=== PATIENT | female | born 1995 | race Caucasian/White ===

== ENCOUNTER 2023-05-10 14:52 | Outpatient (OUT) | payer OTHER, SELFPAY ==
[2023-05-10 17:10] LABS: HCG Quantitative 62387 mIU/mL
== END 2023-05-10 14:53 | disposition home or self-care (01) ==
PROVIDERS: PCP Family Medicine; Visit Provider Obstetrics & Gynecology
DX: O20.9 Hemorrhage in early pregnancy, unspecified (principal)
CPT/HCPCS: 36415; 84702

== ENCOUNTER 2023-05-20 09:22 | Outpatient (OUT) | payer OTHER, SELFPAY ==
--- NOTE | 2023-05-20 09:24 | US_ITS ---
The [address] [address] Patient Name: JOSSELIN DECKER MRN: [id number] date: 1995 Sex: F Assigned Patient Location: Current Patient Location: Accession/Order Number: [id number] Exam Date: 05/20/2023 09:24 Report Date: 05/21/2023 22:03 At the request of: DIONISIO CHADWICK Procedure: US OB transvaginal EXAMINATION: US OB transvaginal HISTORY: MISSED MENSES COMPARISON: No relevant comparison available. FINDINGS: GESTATIONAL SAC: Present and normal appearing. YOLK SAC: Present and normal appearing. POLE: Present and normal appearing. CARDIAC: Present. UTERUS: Normal size and appearance. OVARIES: Right: Normal. Left: Normal. CERVIX: 4.6 cm in length and closed. CUL-DE-SAC: Normal. OTHER: None. AGE BY LMP: 8 weeks 2 days MIGUE BY LMP: 12/28/2023 AGE BY US CRL: 8 weeks 2 days MIGUE BY US CRL: 12/28/2023 US/US OB transvaginal IMPRESSION: 1. Single live intrauterine . Electronically authenticated by: ORQUIDEA RING Date: 05/21/2023 22:03
== END 2023-05-20 09:23 | disposition home or self-care (01) ==
LOC: US 09:22
PROVIDERS: PCP Family Medicine; Visit Provider Obstetrics & Gynecology
DX: Z34.91 Encounter for supervision of normal pregnancy, unspecified, first trimester (principal)
CPT/HCPCS: 76817

== ENCOUNTER 2023-06-02 06:37 | Outpatient (OUT) | payer OTHER, SELFPAY ==
[2023-06-02 07:42] LABS: Basophils Percent Auto 0.5 % (0.2-2.0); Eosinophils Absolute Auto 0.2 10^3/uL (0.0-0.7); Eosinophils Percent Auto 2.7 % (0.9-7.0); Hematocrit 38.4 % (36.0-48.0); Immature Granulocytes Abs Auto 0.03 10^3/uL (0.00-0.03); Immature Granulocytes Pct Auto 0.4 % (0.0-0.5); Lymphocytes Absolute Auto 2.1 10^3/uL (1.2-3.8); Lymphocytes Percent Auto 25.5 % (20.5-60.0); Mean Corpuscular HGB Conc 33.9 g/dL (29.9-35.2); Mean Corpuscular Hemoglobin 30.6 pg (26.7-34.0); Mean Corpuscular Volume 90.4 fL (81.0-99.0); Mean Platelet Volume 10.3 fL (9.5-13.5); Monocytes Absolute Auto 0.6 10^3/uL (0.3-0.8); Monocytes Percent Auto 6.7 % (1.7-12.0); Neutrophils Absolute Auto 5.2 10^3/uL (1.4-6.5); Neutrophils Percent Auto 64.2 % (43.0-75.0); Platelet Count 242 10^3/uL (150-450); Red Blood Count 4.25 10^6/uL (4.20-5.40); Red Cell Distribution Width 13.3 % (11.0-15.0); White Blood Count 8.2 10^3/uL (4.0-11.0)
[2023-06-02 08:02] LABS: Estimated Average Glucose 94 mg/dL; Glycohemoglobin A1C 4.9 % (4.5-6.2)
[2023-06-02 08:16] LABS: Thyroid Stimulating Hormone 0.878 uIU/mL (0.358-3.740)
[2023-06-03 06:08] LABS: HBsAg Screen Negative (Negative); HCV Ab Non Reactive (Non Reactive); HIV Ab/p24 Ag Screen Non Reactive (Non Reactive); Rubella Antibodies, IgG 2.69 index (Immune >0.99)
[2023-06-03 10:09] LABS: Rapid Plasma Reagin, Quant Non Reactive titer (NonRea<1:1)
== END 2023-06-02 06:38 | disposition home or self-care (01) ==
LOC: LAB 06:37
PROVIDERS: PCP Family Medicine; Visit Provider Obstetrics & Gynecology
DX: Z34.80 Encounter for supervision of other normal pregnancy, unspecified trimester (principal); Z3A.00 Weeks of gestation of pregnancy not specified
CPT/HCPCS: 36415; 83036; 84443; 85025; 86592; 86762; 86803; 86850; 86900; 86901; 87086; 87340; 87389

== ENCOUNTER 2023-07-20 21:37 | Outpatient (REF) | payer OTHER, SELFPAY ==
[2023-07-26 11:08] LABS: Age Gdln ACOG Testing Note (.); IGP, rfx Aptima HPV ASCU Note (.)
== END 2023-07-20 21:38 | disposition home or self-care (01) ==
LOC: LAB 21:37
PROVIDERS: PCP Family Medicine; Visit Provider Obstetrics & Gynecology
DX: Z01.419 Encounter for gynecological examination (general) (routine) without abnormal findings (principal)
CPT/HCPCS: G0145

== ENCOUNTER 2023-08-10 08:56 | Outpatient (OUT) | payer OTHER, SELFPAY ==
--- NOTE | 2023-08-10 08:57 | US_ITS ---
[address] [address] Patient Name: JOSSELIN DECKER MRN: [id number] date: 1995 Sex: F Assigned Patient Location: US Current Patient Location: US Accession/Order Number: [id number] Exam Date: 08/10/2023 09:04 Report Date: 08/10/2023 21:17 At the request of: DIONISIO CHADWICK Procedure: US OB anatomy EXAMINATION: US OB anatomy, US OB transvaginal HISTORY: SECOND TRIMESTER Z34.92 COMPARISON: Ultrasound OB transvaginal 05/20/2023 TECHNIQUE: Transabdominal sonographic examination was performed for obstetrical and evaluation. FINDINGS: Number: 1 Heart Rate: 145.0 bpm H.B. /min Amniotic Fluid Volume: Subjectively normal Placental Location: ANTERIOR with lower margin 4.9 cm from os. Multiple hypoechoic areas suspected represent venous lakes. Numerous vessels with slightly hypervascular appearance between the placenta and uterine wall; nonspecific. Cervix Length: 4.4 cm; closed. Nabothian cysts noted within cervix. ANATOMY: Normal Structures -cerebellum, choroid plexus, cisterna magna, lateral cerebral ventricles, orbits, midline falx, hard palate, four-chamber heart, RVOT, LVOT, stomach, kidneys, bladder, umbilical cord insertion into abdomen, three-vessel cord, cervical spine, thoracic spine, lumbar spine, sacral spine, right upper extremity, left upper extremity, right lower extremity, left lower extremity. SUBOPTIMALLY SEEN: None ABNORMALITIES: None BIOMETRY: BPD: 4.5 cm 19 weeks 3 days HC: 17.0 cm 19 weeks 5 days AC: 14.8 cm 20 weeks 1 days FL: 3.2 cm 19 weeks 6 days EFW:323.0 grams; 43% FL/AC: 21.6 FL/BPD: 71.5 HC/AC: 1.2 GESTATIONAL AGE: Age by EDC: 20 weeks 0 days MIGUE by EDC: 12/28/2023 Age by current US: 19 weeks 6 days MIGUE by current US: 12/29/2023 US/US OB anatomy IMPRESSION: 1. Single live intrauterine with growth detailed above. 2. Multiple hypodensities within the placenta suspected to represent venous lakes, and increased vascularity between the placenta and uterus; nonspecific. Electronically authenticated by: ORQUIDEA RING Date: 08/10/2023 21:17
--- NOTE | 2023-08-10 08:58 | US_ITS ---
[address] [address] Patient Name: JOSSELIN DECKER MRN: [id number] date: 1995 Sex: F Assigned Patient Location: US Current Patient Location: US Accession/Order Number: [id number] Exam Date: 08/10/2023 09:04 Report Date: 08/10/2023 21:17 At the request of: DIONISIO CHADWICK Procedure: US OB transvaginal EXAMINATION: US OB anatomy, US OB transvaginal HISTORY: SECOND TRIMESTER Z34.92 COMPARISON: Ultrasound OB transvaginal 05/20/2023 TECHNIQUE: Transabdominal sonographic examination was performed for obstetrical and evaluation. FINDINGS: Number: 1 Heart Rate: 145.0 bpm H.B. /min Amniotic Fluid Volume: Subjectively normal Placental Location: ANTERIOR with lower margin 4.9 cm from os. Multiple hypoechoic areas suspected represent venous lakes. Numerous vessels with slightly hypervascular appearance between the placenta and uterine wall; nonspecific. Cervix Length: 4.4 cm; closed. Nabothian cysts noted within cervix. ANATOMY: Normal Structures -cerebellum, choroid plexus, cisterna magna, lateral cerebral ventricles, orbits, midline falx, hard palate, four-chamber heart, RVOT, LVOT, stomach, kidneys, bladder, umbilical cord insertion into abdomen, three-vessel cord, cervical spine, thoracic spine, lumbar spine, sacral spine, right upper extremity, left upper extremity, right lower extremity, left lower extremity. SUBOPTIMALLY SEEN: None ABNORMALITIES: None BIOMETRY: BPD: 4.5 cm 19 weeks 3 days HC: 17.0 cm 19 weeks 5 days AC: 14.8 cm 20 weeks 1 days FL: 3.2 cm 19 weeks 6 days EFW:323.0 grams; 43% FL/AC: 21.6 FL/BPD: 71.5 HC/AC: 1.2 GESTATIONAL AGE: Age by EDC: 20 weeks 0 days MIGUE by EDC: 12/28/2023 Age by current US: 19 weeks 6 days MIGUE by current US: 12/29/2023 US/US OB transvaginal IMPRESSION: 1. Single live intrauterine with growth detailed above. 2. Multiple hypodensities within the placenta suspected to represent venous lakes, and increased vascularity between the placenta and uterus; nonspecific. Electronically authenticated by: ORQUIDEA RING Date: 08/10/2023 21:17
== END 2023-08-10 08:57 | disposition home or self-care (01) ==
LOC: US 08:56
PROVIDERS: PCP Family Medicine; Visit Provider Obstetrics & Gynecology
DX: Z34.92 Encounter for supervision of normal pregnancy, unspecified, second trimester (principal); Z3A.20 20 weeks gestation of pregnancy
CPT/HCPCS: 76805; 76817

== ENCOUNTER 2023-09-10 07:52 | Outpatient (OUT) | payer OTHER, SELFPAY ==
--- NOTE | 2023-09-10 | US_ITS ---
[address] [address] Patient Name: JOSSELIN DECKER MRN: [id number] date: 1995 Sex: F Assigned Patient Location: LAB Current Patient Location: LAB Accession/Order Number: [id number] Exam Date: 09/10/2023 09:25 Report Date: 09/10/2023 10:35 At the request of: DIONISIO CHADWICK Procedure: US OB transvaginal EXAMINATION: US OB placenta, US OB transvaginal HISTORY: low lying placenta O44.40 COMPARISON: Ultrasound OB anatomy 08/10/2023 FINDINGS: PLACENTA: Anterior with lower margin 4.0 cm from internal os. Several heterogeneous hypoechoic areas suspected represent placental lakes; largest is 4.7 x 2.6 x 2.2 cm. CERVIX LENGTH: 5.0 cm, closed. HEART RATE: 134 bpm OTHER: None. US/US OB transvaginal IMPRESSION: 1. Anterior placenta without previa. 2. Multiple heterogeneous hypoechoic areas within the placenta favoring venous lakes. Electronically authenticated by: ORQUIDEA RING Date: 09/10/2023 10:35
--- NOTE | 2023-09-10 | US_ITS ---
[address] [address] Patient Name: JOSSELIN DECKER MRN: [id number] date: 1995 Sex: F Assigned Patient Location: LAB Current Patient Location: LAB Accession/Order Number: [id number] Exam Date: 09/10/2023 09:25 Report Date: 09/10/2023 10:35 At the request of: DIONISIO CHADWICK Procedure: US OB placenta EXAMINATION: US OB placenta, US OB transvaginal HISTORY: low lying placenta O44.40 COMPARISON: Ultrasound OB anatomy 08/10/2023 FINDINGS: PLACENTA: Anterior with lower margin 4.0 cm from internal os. Several heterogeneous hypoechoic areas suspected represent placental lakes; largest is 4.7 x 2.6 x 2.2 cm. CERVIX LENGTH: 5.0 cm, closed. HEART RATE: 134 bpm OTHER: None. US/US OB placenta IMPRESSION: 1. Anterior placenta without previa. 2. Multiple heterogeneous hypoechoic areas within the placenta favoring venous lakes. Electronically authenticated by: ORQUIDEA RING Date: 09/10/2023 10:35
--- OUTSIDE RECORDS SUMMARY | 2023-09-10 07:55 | XMS_ITS | CCD ---
Author Name Unknown Address [address] [facility] [address] [place] [address] Organization [facility] Care Team Providers Care Criminology Teacher Name Role Phone NETTA, DR NICHOLE Consulting Unavailable REQUEST, NONE LISTED Primary Care Unavaila ble NETTA, DR NICHOLE Attending Unavailable NETTA, DR NICHOLE Admitting Unavailable NETTA, DR NICHOLE Consulting Unavailable REQUEST, DR NONE LISTED Primary Care Unavaila ble NETTA, DR NICHOLE Attending Unavailable NETTA, DR NICHOLE Admitting Unavailable NETTA, DR NICHOLE Consulting Unavailable REQUEST, DR NONE LISTED Primary Care Unavaila ble NETTA, DR NICHOLE Attending Unavailable NETTA, DR NICHOLE Admitting Unavailable NETTA, DR NICHOLE Consulting Unavailable REQUEST, NONE LISTED Primary Care Unavaila ble NETTA, DR NICHOLE Attending Unavailable NETTA, DR NICHOLE Admitting Unavailable ZIEBER, DR ORQUIDEA [place] Consulting Unavailable WEST, DR JESSENIA Cote Consulting Unavailable REQUEST, NONE LISTED Primary Care Unavaila ble NETTA, DR NICHOLE Attending Unavailable NETTA, DR NICHOLE Admitting Unavailable NETTA, DR NICHOLE Consulting Unavailable REQUEST, DR NONE LISTED Primary Care Unavaila ble NETTA, DR NICHOLE Attending Unavailable NETTA, DR NICHOLE Admitting Unavailable ZIEBER, DR ORQUIDEA [place] Consulting Unavailable RUSLAN, DR CHRISTIANSON Attending Unavailable RUSLAN, DR CHRISTIANSON Admitting Unavailable DEBBY, DR ATWOOD Primary Care Unavailable RUSLAN, DR CHRISTIANSON Consulting Unavailable REQUEST, DR RAY LISTED Primary Care Unavaila ble NETTA, DR NICHOLE Attending Unavailable NETTA, DR NICHOLE Admitting Unavailable NETTA, DR NICHOLE Attending Unavailable NETTA, DR NICHOLE Admitting Unavailable NETTA, DR NICHOLE Consulting Unavailable REQUEST, DR NONE LISTED Primary Care Unavaila ble ZIEBER, DR ORQUIDEA [place] Consulting Unavailable NETTA, DR NICHOLE Procedure Practitioner Unavailab le AGUBOSIMBRIANNA Consulting Unavailable AGUBOSIM, BRIANNA Procedure Practitioner Unavaila ble NETTA, DR NICHOLE Consulting Unavailable NETTA, DR NICHOLE Primary Care Unavailable NETTA, DR NICHOLE Attending Unavailable NETTA, DR NICHOLE Admitting Unavailable REQUEST, DR NONE LISTED Primary Care Unavaila ble KARASIK, DR HOWARD Consulting Unavailable KARASIK, DR HOWARD Attending Unavailable KARASIK, DR HOWARD Admitting Unavailable ZIEBER, DR ORQUIDEA [place] Consulting Unavailable REQUEST, DR NONE LISTED Primary Care Unavaila ble NETTA, DR NICHOLE Consulting Unavailable NETTA, DR NICHOLE Attending Unavailable NETTA, DR NICHOLE Admitting Unavailable NETTA, DR NICHOLE Consulting Unavailable HOY, DR ATWOOD Primary Care Unavailable NETTA, DR NICHOLE Attending Unavailable NETTA, DR NICHOLE Admitting Unavailable WEST, DR JESSENIA Cote Consulting Unavailable HOY, DR ATWOOD Primary Care Unavailable NETTA, DR NICHOLE Attending Unavailable NETTA, DR NICHOLE Admitting Unavailable NETTA, DR NICHOLE Consulting Unavailable NETTA, DIONISIO Attending Unavailable NETTA, DIONISIO Attending Unavailable Problems Active Problems Problem Classification Problem Date Documented Date Episodic/Chronic Immunizations and screening for infectious disease (5 sources) Encounter for screening for human papillomavirus (HPV); Translations: [Contact with and (suspected) exposure to infections with a predominantly sexual mode of transmission] Onset: 07-04-2021 Episodic Menstrual disorders (5 sources) Irregular menstruation, unspecified; Translations: [IRREGULAR MENSTRUATION UNSPECIFIED] Onset: 07-02-2021 Chronic Other screening for suspected conditions (not mental disorders or infectious disease) (20 sources) Encounter for screening for malignant neoplasm of cervix; Translations: [Encounter for screening for Streptococcus B] Onset: 07-14-2021 Episodic Unclassified (4 sources) CONTACT W/AND (SUSP) EXPOS COVID-19; Translations: [CONTACT W/AND (SUSP) EXPOS COVID-19] Onset: 08-04-2021 Past or Other Problems Problem Classification Problem Date Documented Date Episodic/Chronic Hemorrhage during ; abruptio placenta; placenta previa (5 sources) Hemorrhage in early , unspecified; Translations: [Threatened ] Onset: 07-15-2021 Episodic Malposition; malpresentation (3 sources) Maternal care for breech presentation, not applicable or unspecified; Translations: [MATERNAL CARE BREECH PRES NA/UNS] Onset: 02-01-2022 Episodic Other complications of ; puerperium affecting management of mother (1 source) Spinal and epidural anesthesia-induced headache during the puerperium; Translations: [SP EPID ANES-IND H/A DUR PUERPERIUM] Onset: 02-11-2022 Episodic Other complications of ; puerperium affecting management of mother (4 sources) Maternal care for other (suspected) abnormality and damage, not applicable or unspecified; Translations: [MAT CARE OTH ABN DAMGE NA/UNS] Onset: 10-19-2021 Episodic Other complications of (4 sources) Abnormal ultrasonic finding on screening of mother; Translations: [ABNORM US SCREEN MOTHER] Onset: 12-21-2021 Episodic Other complications of (1 source) Other specified related conditions, unspecified trimester; Translations: [OTH SPEC PREG RELATED COND UNS TRI] Onset: 10-21-2021 Episodic Other female genital disorders (1 source) Other specified noninflammatory disorders of vagina; Translations: [OTH SPEC NONINFLAMMATORY D/O VAGINA] Onset: 10-21-2021 Episodic Other and delivery including normal (5 sources) Encounter for routine follow-up; Translations: [Single live ] Onset: 02-08-2022 Episodic Residual codes; unclassified (1 source) 38 weeks gestation of ; Translations: [38 WEEKS GESTATION OF ] Onset: 02-11-2022 Episodic Residual codes; unclassified (1 source) 9 weeks gestation of ; Translations: [9 WEEKS GESTATION OF ] Onset: 07-16-2021 Episodic Unclassified (1 source) CONTACT W/AND (SUSP) EXPOS COVID-19; Translations: [CONTACT W/AND (SUSP) EXPOS COVID-19] Onset: 07-30-2021 Results Test Name Value Interpretation Reference Range Facility PAP ACOG PANEL 2: 21 to 29on 06-02-2022 . . [facility] Comment on above: Performed By: #### G LU1HR #### [facility] [address] [place] [address] Dr. Joanna Chen Age Gdln ACOG Testing - Normal [facility] Comment on above: Performed By: #### G LU1HR #### [facility] [address] [address] [address] Joanna Chen DIAGNOSIS: Comment Normal [facility] Comment on above: Result Comment: NEGA TIVE FOR INTRAEPITHELIAL LESION OR MALIGNANCY. Performed By: #### G LU1HR #### [facility] [address] [place] [address] Dr. Joanna Chen Methodology: Comment Normal [facility] Comment on above: Result Comment: This liquid based ThinPrep(R) pap test was screened with the use of an image guided system. Performed By: #### G LU1HR #### [facility] [address] [place] [address] Dr. Joanna Chen Note: Comment Normal [facility] Comment on above: Result Comment: The Pap smear is a screening test designed to aid in the detection of premalignant and malignant conditions of the uterine cervix. It is not a diagnostic procedure and should not be used as the sole means of detecting cervical cancer. Both false-positive and false-negative reports do occur. . Performed By: #### G LU1HR #### [facility] [address] [place] [address] Dr. Joanna Chen Performed by: Comment Normal [facility] Comment on above: Result Comment: Serena Bassett, Veterinary Technologist (ASCP) Performed By: #### G LU1HR #### [facility] [address] [place] [address] Dr. Joanna Chen Reflex Criteria: Comment [facility] Comment on above: Result Comment: The HPV DNA reflex criteria were not met with this specimen result therefore, no HPV testing was performed. . Performed By: #### G LU1HR #### [facility] [address] [address] [address] Joanna Chen Specimen adequacy: Comment [facility] Comment on above: Result Comment: Sati sfactory for evaluation. Endocervical and/or squamous metaplastic cells (endocervical component) are present. Performed By: #### G LU1HR #### [facility] [address] [place] [address] Dr. Joanna Chen CBC AUTO DIFFon 02-02-2022 BASO # 0.1 103/ul Normal 0.0-0.1 [facility] Comment on above: Performed By: #### H BSANS #### [facility] [address] [place] [address] Dr. Joanna Chen Basophils/100 WBC (Bld) 0.3 % Normal 0.2-2.0 [facility] Comment on above: Performed By: #### H BSANS #### [facility] [address] [place] [address] Dr. Joanna Chen EO # 0.1 103/ul Normal 0.0-0.7 [facility] Comment on above: Performed By: #### H BSANS #### [facility] [address] [place] [address] Dr. Joanna Chen Eosinophils/100 WBC (Bld) 0.4 % Critically low 0.9-7.0 [facility] Comment on above: Performed By: #### H BSANS #### [facility] [address] [place] [address] Dr. Joanna Chen Erythrocyte distribution width (RBC) [Ratio] 13.8 % Normal 11.0-15.0 [facility] Comment on above: Performed By: #### H BSANS #### [facility] [address] [place] [address] Dr. Joanna Chen Hematocrit (Bld) [Volume fraction] 31.7 % Critically low 36.0-48.0 [facility] Comment on above: Performed By: #### H BSANS #### [facility] [address] [place] [address] Dr. Joanna Chen Hemoglobin (Bld) [Mass/Vol] 10.0 g/dL Critically low 12.0-16.[address] [facility] Comment on above: Performed By: #### H BSANS #### [facility] [address] [place] [address] Dr. Joanna Chen IG # 0.15 10e3/ul Critically high 0.00-0.03 [facility] Comment on above: Performed By: #### H BSANS #### [facility] [address] [address] [address] Joanna Chen IG % 0.9 % Critically high 0.0-0.5 [facility] Comment on above: Performed By: #### H BSANS #### [facility] [address] [address] [address] Joanna Chen LYMPH # 1.7 103/ul Normal 1.2-3.[address] [facility] Comment on above: Performed By: #### H BSANS #### [facility] [address] [place] [address] Dr. Joanna Chen Lymphocytes/100 WBC (Bld) 10.5 % Critically low 20.5-60.0 [facility] Comment on above: Performed By: #### H BSANS #### [facility] [address] [place] [address] Dr. Joanna Chen MANUAL DIFF REQ NO Normal [facility] Comment on above: Performed By: #### H BSANS #### [facility] [address] [place] [address] Dr. Joanna Chen MCH (RBC) [Entitic mass] 29.2 pg Normal 26.7-34.0 [facility] Comment on above: Performed By: #### H BSANS #### [facility] [address] [place] [address] Dr. Joanna Chen MCHC (RBC) [Mass/Vol] 31.5 g/dL Normal 29.9-35.[address] [facility] Comment on above: Performed By: #### H BSANS #### [facility] [address] [place] [address] Dr. Joanna Chen MCV (RBC) [Entitic vol] 92.4 fL Normal 81.0-99.[address] [facility] Comment on above: Performed By: #### H BSANS #### [facility] [address] [place] [address] Dr. Joanna Chen MONO # 1.2 103/ul Critically high 0.3-0.[address] [facility] Comment on above: Performed By: #### H BSANS #### [facility] [address] [address] [address] Joanna Chen Monocytes/100 WBC (Bld) 7.2 % Normal 1.7-12.[address] [facility] Comment on above: Performed By: #### H BSANS #### [facility] [address] [address] [address] Joanna Chen NEUT # 13.0 103/ul Critically high 1.4-6.5 [facility] Comment on above: Performed By: #### H BSANS #### [facility] [address] [place] [address] Dr. Joanna Chen Neutrophils/100 WBC (Bld) 80.7 % Critically high 43.0-75.[address] [facility] Comment on above: Performed By: #### H BSANS #### [facility] [address] [place] [address] Dr. Joanna Chen Platelet mean volume (Bld) [Entitic vol] 10.0 fL Normal 9.5-13.5 [facility] Comment on above: Performed By: #### H BSANS #### [facility] [address] [place] [address] Dr. Joanna Chen PLT 181 103/ul Normal 150-[address] [facility] Comment on above: Performed By: #### H BSANS #### [facility] [address] [place] [address] Dr. Joanna Chen RBC 3.43 106/ul Critically low 4.20-5.[address] [facility] Comment on above: Performed By: #### H BSANS #### [facility] [address] [place] [address] Dr. Joanna Chen WBC 16.1 103/ul Critically high 4.0-11.[address] [facility] Comment on above: Performed By: #### H BSANS #### [facility] [address] [place] [address] Dr. Joanna Chen CBC AUTO DIFFon 02-01-2022 BASO # 0.0 103/ul Normal 0.0-0.1 [facility] Comment on above: Performed By: #### G LU1HR #### [facility] [address] [place] [address] Dr. Joanna Chen Basophils/100 WBC (Bld) 0.2 % Normal 0.2-2.0 [facility] Comment on above: Performed By: #### G LU1HR #### [facility] [address] [place] [address] Dr. Joanna Chen EO # 0.0 103/ul Normal 0.0-0.[address] [facility] Comment on above: Performed By: #### G LU1HR #### [facility] [address] [place] [address] Dr. Joanna Chen Eosinophils/100 WBC (Bld) 0.2 % Critically low 0.9-7.0 [facility] Comment on above: Performed By: #### G LU1HR #### [facility] [address] [place] [address] Dr. Joanna Chen Erythrocyte distribution width (RBC) [Ratio] 13.8 % Normal 11.0-15.0 [facility] Comment on above: Performed By: #### G LU1HR #### [facility] [address] [place] [address] Dr. Joanna Chen Hematocrit (Bld) [Volume fraction] 36.2 % Normal 36.0-48.0 [facility] Comment on above: Performed By: #### G LU1HR #### [facility] [address] [place] [address] Dr. Joanna Chen Hemoglobin (Bld) [Mass/Vol] 11.8 g/dL Critically low 12.0-16.[address] [facility] Comment on above: Performed By: #### G LU1HR #### [facility] [address] [place] [address] Dr. Joanna Chen IG # 0.14 10e3/ul Critically high 0.00-0.03 [facility] Comment on above: Performed By: #### G LU1HR #### [facility] [address] [place] [address] Dr. Joanna Chen IG % 1.0 % Critically high 0.0-0.[address] [facility] Comment on above: Performed By: #### G LU1HR #### [facility] [address] [address] [address] Joanna Chen LYMPH # 2.0 103/ul Normal 1.2-3.8 [facility] Comment on above: Performed By: #### G LU1HR #### [facility] [address] [address] [address] Joanna Chen Lymphocytes/100 WBC (Bld) 14.5 % Critically low 20.5-60.0 [facility] Comment on above: Performed By: #### G LU1HR #### [facility] [address] [address] [address] Joanna Chen MANUAL DIFF REQ NO Normal [facility] Comment on above: Performed By: #### G LU1HR #### [facility] [address] [place] [address] Dr. Joanna Chen MCH (RBC) [Entitic mass] 29.2 pg Normal 26.7-34.0 [facility] Comment on above: Performed By: #### G LU1HR #### [facility] [address] [place] [address] Dr. Joanna Chen MCHC (RBC) [Mass/Vol] 32.6 g/dL Normal 29.9-35.2 [facility] Comment on above: Performed By: #### G LU1HR #### [facility] [address] [address] [address] Joanna Chen MCV (RBC) [Entitic vol] 89.6 fL Normal 81.0-99.0 [facility] Comment on above: Performed By: #### G LU1HR #### [facility] [address] [address] [address] Joanna Chen MONO # 1.0 103/ul Critically high 0.3-0.8 [facility] Comment on above: Performed By: #### G LU1HR #### [facility] [address] [address] [address] Joanna Chen Monocytes/100 WBC (Bld) 7.2 % Normal 1.7-12.[address] [facility] Comment on above: Performed By: #### G LU1HR #### [facility] [address] [address] [address] Joanna Chen NEUT # 10.6 103/ul Critically high 1.4-6.5 [facility] Comment on above: Performed By: #### G LU1HR #### [facility] [address] [place] [address] Dr. Joanna Chen Neutrophils/100 WBC (Bld) 76.9 % Critically high 43.0-75.0 [facility] Comment on above: Performed By: #### G LU1HR #### [facility] [address] [place] [address] Dr. Joanna Chen Platelet mean volume (Bld) [Entitic vol] 9.7 fL Normal 9.5-13.5 [facility] Comment on above: Performed By: #### G LU1HR #### [facility] [address] [place] [address] Dr. Joanna Chen PLT 203 103/ul Normal 150-450 [facility] Comment on above: Performed By: #### G LU1HR #### [facility] [address] [place] [address] Dr. Joanna Chen RBC 4.04 106/ul Critically low 4.20-5.40 [facility] Comment on above: Performed By: #### G LU1HR #### [facility] [address] [place] [address] Dr. Joanna Chen WBC 13.8 103/ul Critically high 4.0-11.0 [facility] Comment on above: Performed By: #### G LU1HR #### [facility] [address] [place] [address] Dr. Joanna Chen Covid-19 PCR ([facility])on 01-14 SARS-CoV-2 (COVID-19) RNA MANINDER+probe Ql (Unsp spec) Not detected Normal NOT DETECTED [facility] Comment on above: Result Comment: When diagnostic testing is negative, the possibility of a false negative should be considered in the context of a patient's recent exposures and the presence of clinical signs and symptoms consistent with SARS-CoV-2. This test is not yet approved or cleared by the [place] FDA. When there are no FDA-approved or cleared tests available, and other criteria are met, FDA can make tests available under an emergency access mechanism called an Emergency Use Authorization (EUA). The EUA for this test is supported by the Natural Resources Extension Educator of Health and Human Service's declaration that circumstances exist to justify the emergency use of in vitro diagnostics for the detection and/or diagnosis of the virus that causes COVID-19. This EUA will remain in effect for the duration of the COVID-19 declaration justifying emergency of IVDs, unless it is terminated or revoked by the FDA (after which the test may no longer be used). Performed By: #### G LU1HR #### [facility] [address] [place] [address] Dr. Joanna Chen DRUG SCREEN RAPID (URINE)on 02-01-2022 AMP Negative Normal NEGATIVE [facility] Comment on above: Performed By: #### H BSANS #### [facility] [address] [place] [address] Dr. Joanna Chen BAR Negative Normal NEGATIVE [facility] Comment on above: Performed By: #### H BSANS #### [facility] [address] [place] [address] Dr. Joanna Chen BUP Negative Normal NEGATIVE [facility] Comment on above: Performed By: #### H BSANS #### [facility] [address] [place] [address] Dr. Joanna Chen BZO Negative Normal NEGATIVE [facility] Comment on above: Performed By: #### H BSANS #### [facility] [address] [place] [address] Dr. Joanna Chen HALLE Negative Normal NEGATIVE [facility] Comment on above: Performed By: #### H BSANS #### [facility] [address] [place] [address] Dr. Joanna Chen CUT-OFFS SEE BELOW Normal [facility] Comment on above: Result Comment: AMP (Amphetamine): 500ng/mL, BAR (Barbituates): 200 ng/mL, BZO (Benzodiazepines): 150 ng/mL, BUP (Buprenorphine): 10 ng/mL, HALLE (Cocaine): 150 ng/mL, mAMP (Methamphetamine): 500 ng/mL, MTD (Methadone): 200 ng/mL, OPI (Opiates): 100 ng/mL, OXY (Oxycodone): 100 ng/mL, PCP (Phencyclidine): 25 ng/mL, PPX (Propoxyphene): 300 ng/mL, THC (Cannabinoids): 50 ng/mL, TCA (Trycyclic Antidepressants): 300 ng/mL Performed By: #### H BSANS #### [facility] [address] [place] [address] Dr. Joanna Chen DRUG CUT HEADER DRUG CLASS TEST SYST EM CUT-OFF CONCENTRATIONS ARE FOLLOWS: Normal [facility] Comment on above: Performed By: #### H BSANS #### [facility] [address] [place] [address] Dr. Joanna Chen mAMP Negative Normal NEGATIVE [facility] Comment on above: Performed By: #### H BSANS #### [facility] [address] [place] [address] Dr. Joanna Chen MTD Negative Normal NEGATIVE [facility] Comment on above: Performed By: #### H BSANS #### [facility] [address] [place] [address] Dr. Joanna Chen OPI Negative Normal NEGATIVE [facility] Comment on above: Performed By: #### H BSANS #### [facility] [address] [place] [address] Dr. Joanna Chen OXY Negative Normal NEGATIVE [facility] Comment on above: Performed By: #### H BSANS #### [facility] [address] [place] [address] Dr. Joanna Chen PCP Negative Normal NEGATIVE [facility] Comment on above: Performed By: #### H BSANS #### [facility] [address] [place] [address] Dr. Joanna Chen PPX Negative Normal NEGATIVE [facility] Comment on above: Performed By: #### H BSANS #### [facility] [address] [place] [address] Dr. Joanna Chen TCA Negative Normal NEGATIVE [facility] Comment on above: Performed By: #### H BSANS #### [facility] [address] [place] [address] Dr. Joanna Chen THC Negative Normal NEGATIVE [facility] Comment on above: Performed By: #### H BSANS #### [facility] [address] [place] [address] Dr. Joanna Chen TYPE AND SCREENon 02-01-2022 TYPE AND SCREEN Negative Normal [facility] Comment on above: Performed By: #### C MP, PREGQNT #### [facility] [address] [address] [address] Joanna Chen UA (CLEAN/CATCH) PROJECT DIRECTOR/MICRO I F IND.on 02-01-2022 Bilirubin Ql (U) Negative Normal NEGATIVE [facility] Comment on above: Performed By: #### U ACSIND, UMICRO #### [facility] [address] [place] [address] Dr. Joanna Chen Clarity (U) CLEAR Normal CLEAR [facility] Comment on above: Performed By: #### U ACSIND, UMICRO #### [facility] [address] [address] [address] Joanna Chen Color (U) LT. YELLOW Normal YELLOW [facility] Comment on above: Performed By: #### U ACSIND, UMICRO #### [facility] [address] [place] [address] Dr. Joanna Chen Glucose Ql (U) Negative Normal NEGATIVE [facility] Comment on above: Performed By: #### U ACSIND, UMICRO #### [facility] [address] [address] [address] Joanna Chen Hemoglobin Ql (U) Negative Normal NEGATIVE [facility] Comment on above: Performed By: #### U ACSIND, UMICRO #### [facility] [address] [place] [address] Dr. Joanna Chen Ketones Ql (U) Negative Normal NEGATIVE [facility] Comment on above: Performed By: #### U ACSIND, UMICRO #### [facility] [address] [place] [address] Dr. Joanna Chen LEUKOCYTES TRACE Abnormal NEGATIVE [facility] Comment on above: Performed By: #### U ACSMARK MOREAUICRO #### [facility] [address] [place] [address] Dr. Joanna Chen Nitrite Ql (U) Negative Normal NEGATIVE [facility] Comment on above: Performed By: #### U ACSMARK MOREAUICRO #### [facility] [address] [place] [address] Dr. Joanna Chen pH (U) 7.0 [pH] Normal 5-[address] [facility] Comment on above: Performed By: #### U RAMYA PORTILLORO #### [facility] [address] [place] [address] Dr. Joanna Chen SPEC GRAVITY 1.010 Normal 1.005-<=1.02 5 [facility] Comment on above: Performed By: #### U RAMYA PORTILLORO #### [facility] [address] [place] [address] Dr. Joanna Chen UA PROTEIN Negative Normal NEGATIVE/ TRACE [facility] Comment on above: Performed By: #### U RAMYA PORTILLORO #### [facility] [address] [place] [address] Dr. Joanna Chen UR MICRO IND INDICATED Normal [facility] Comment on above: Performed By: #### U RAMYA PORTILLORO #### [facility] [address] [place] [address] Dr. Joanna Chen Urobilinogen Qn (U) 0.2 {Frank'U}/dL Normal 0.2 - 1.[address] [facility] Comment on above: Performed By: #### U MARK PORTILLOICRO #### [facility] [address] [place] [address] Dr. Joanna Chen URINE MICROSCOPIC ONLYon BACTERIA NONE SEEN Normal NONE SEEN [facility] Comment on above: Performed By: #### U RAMYA PORTILLORO #### [facility] [address] [place] [address] Dr. Joanna Chen Bacteria identified Cx Nom (U) NOT INDICATED Normal [facility] Comment on above: Performed By: #### U ACSIND, UMICRO #### [facility] [address] [place] [address] Dr. Joanna Chen CAST NONE SEEN Normal NONE SEEN [facility] Comment on above: Performed By: #### U ACSIND, UMICRO #### [facility] [address] [place] [address] Dr. Joanna Chen Crystals LM Nom (Urine sed) NONE SEEN Normal NONE SEEN [facility] Comment on above: Performed By: #### U ACSIND, UMICRO #### [facility] [address] [place] [address] Dr. Joanna Chen Epithelial cells LM Ql (Urine sed) FEW Abnormal NONE SEEN /RARE [facility] Comment on above: Performed By: #### U ACSIND, UMICRO #### [facility] [address] [place] [address] Dr. Joanna Chen MUCOUS NONE SEEN Normal NONE SEEN [facility] Comment on above: Performed By: #### U ACSIND, UMICRO #### [facility] [address] [place] [address] Dr. Joanna Chen RBC NONE SEEN Abnormal 0-[address] [facility] Comment on above: Performed By: #### U ACSIND, UMICRO #### [facility] [address] [place] [address] Dr. Joanna Chen WBC 0-2 Abnormal NONE SEEN [facility] Comment on above: Performed By: #### U ACSIND, UMICRO #### [facility] [address] [place] [address] Dr. Joanna Chen US PREG BIOPHY W NON STRESSo n 02-01-2022 US PREG BIOPHY W NON STRESS EXAMINATION: US PREG BIOPHY W NON STRESS HISTORY: Fetus or affected by malpresentation before labor COMPARISON: Ultrasound 12/21/2021 TECHNIQUE: Ultrasound biophysical profile was performed. FINDINGS: BREATHING MOVEMENTS: 0.0 GROSS BODY MOVEMENTS: 2.0 TONE: 2.0 QUALITATIVE AMNIOTIC FLUID VOLUME: 2.0 PRESENTATION: BREECH HEART RATE: 132.4 bpm bpm. AMNIOTIC FLUID VOLUME: 13.0 cm GESTATIONAL AGE: 38 weeks 0 days CONCLUSION: Total biophysical profile score 6.0. Electronically authenticated by: ORQUIDEA RING Date: 2022-02-01 12:34 [address] [facility] GROUP B STREP CULTUREon S. agalactiae Ag Ql (Unsp spec) Culture Observations: NEGATIVE FOR GROUP B STREPTOCOCCUS. Normal [facility] Comment on above: Performed By: #### C MP, PREGQNT #### [facility] [address] [place] [address] Dr. Joanna Chen US PREG REEVAL ABNon 022 US PREG REEVAL ABN EXAMINATION: US PREG REEVAL ABN HISTORY: ultrasound scan abnormal ; follow-up echogenic focus in heart COMPARISON: Ultrasound incomplete anatomy 10/19/2021, ultrasound anatomy 10/01/2021 FINDINGS: Anatomy: Bilateral choroid plexus cysts within the lateral ventricles of the brain, 5 mm and 6 mm in diameter. Persistent echogenic focus noted within left lateral cardiac ventricle. Gestational age: 32 weeks, 0 days MIGUE: 02/15/2022 IMPRESSION: 1. Single live intrauterine . 2. Persistent echogenic focus within the left cardiac ventricle. 3. Small bilateral choroid plexus cysts. Electronically authenticated by: ORQUIDEA RING Date: 2021-12-21 16:[address] [facility] GLUCOSE - 1HRon 10-30-2021 Glucose [Mass/Vol] 82 mg/dL Normal 74-[address] [facility] Comment on above: Performed By: #### G LU1HR #### [facility] [address] [place] [address] Dr. Joanna Chen HEMOGRAM AND PLATELon 2021 Hematocrit (Bld) [Volume fraction] 35.0 % Critically low 36.0-48.[address] [facility] Comment on above: Performed By: #### H BSANS #### [facility] [address] [place] [address] Dr. Joanna Chen Hemoglobin (Bld) [Mass/Vol] 11.4 g/dL Critically low 12.0-16.0 [facility] Comment on above: Performed By: #### H BSANS #### [facility] [address] [place] [address] Dr. Joanna Chen MCH (RBC) [Entitic mass] 30.2 pg Normal 26.7-34.0 [facility] Comment on above: Performed By: #### H BSANS #### [facility] [address] [place] [address] Dr. Joanna Chen MCHC (RBC) [Mass/Vol] 32.6 g/dL Normal 29.9-35.[address] [facility] Comment on above: Performed By: #### H BSANS #### [facility] [address] [place] [address] Dr. Joanna Chen MCV (RBC) [Entitic vol] 92.6 fL Normal 81.0-99.0 [facility] Comment on above: Performed By: #### H BSANS #### [facility] [address] [place] [address] Dr. Joanna Chen PLT 267 103/ul Normal 150-450 [facility] Comment on above: Performed By: #### H BSANS #### [facility] [address] [place] [address] Dr. Joanna Chen RBC 3.78 106/ul Critically low 4.20-5.40 [facility] Comment on above: Performed By: #### H BSANS #### [facility] [address] [place] [address] Dr. Joanna Chen WBC 12.0 103/ul Critically high 4.0-11.0 [facility] Comment on above: Performed By: #### H BSANS #### [facility] [address] [place] [address] Dr. Joanna Chen CHLAMYDIA/GONOCOCCUS MANINDER (SW AB/URINE/PAPon 10-21-2021 Chlamydia trachomatis, MANINDER Negative Normal Negative [facility] Comment on above: Performed By: #### G LU1HR #### [facility] [address] [place] [address] Dr. Joanna Chen Neisseria gonorrhoeae, MANINDER Negative Normal Negative [facility] Comment on above: Performed By: #### G LU1HR #### [facility] [address] [address] [address] Joanna Chen VAGINITIS/VAGINOSIS DNA PROB Cheng 10-20-2021 Earnestine species Negative Normal Negative [facility] Comment on above: Performed By: #### H BSANS #### [facility] [address] [address] [address] Joanna Chen Gardnerella vaginalis Positive Abnormal Negative [facility] Comment on above: Performed By: #### H BSANS #### [facility] [address] [address] [address] Joanna Chen Trichomonas vaginalis Negative Normal Negative [facility] Comment on above: Performed By: #### H BSANS #### [facility] [address] [address] [address] Joanna Chen US PREG INCOMPLETE ANATOMYon 10-19-2021 US PREG INCOMPLETE ANATOMY EXAMINATION: US PREG INCOMPLETE ANATOMY HISTORY: screening COMPARISON: 10/01/2021 FINDINGS: presentation: Cephalic Heart rate: 141 bpm Normal anatomy: Right ventricular outflow track, left ventricular outflow tract Other: Single cardiac focus again noted IMPRESSION: Stable single cardiac focus, nonspecific Electronically authenticated by: JESSENIA LOPEZ Date: 2021-10-19 18:33 Normal [address] [facility] US PREG ANATOMY SINGLEon US PREG ANATOMY SINGLE EXAMINATION: US PREG ANATOMY SINGLE HISTORY: anatomy study COMPARISON: No relevant comparison available. TECHNIQUE: Transabdominal sonographic examination was performed for obstetrical and evaluation. FINDINGS: Number: 1 Heart Rate: 154 H.B. /min Amniotic Fluid Volume: Subjectively normal Placental Location: Posterior with lower margin 3.4 cm from os. Several small venous lakes within the placenta. Cervix Length: 4.0 cm in length, closed. ANATOMY: Normal Structures -cerebellum, choroid plexus, cisterna magna, lateral cerebral ventricles, orbits, midline falx, hard palate, four-chamber heart, stomach, kidneys, bladder, umbilical cord insertion into abdomen, three-vessel cord, cervical spine, thoracic spine, lumbar spine, sacral spine, right upper extremity, left upper extremity, right lower extremity, left lower extremity. SUBOPTIMALLY SEEN: Cardiac outflow tracts ABNORMALITIES: Echogenic focus within left cardiac ventricle. BIOMETRY: BPD: 4.7 cm 20 weeks 1 days HC: 17.5 cm 20 weeks 0 days AC: 14.6 cm 19 weeks 6 days FL: 3.0 cm 19 weeks 2 days EFW:307 g (44% by ultrasound, 13% by expected); FL/AC: 0.448640 FL/BPD: 0.198617 HC/AC: 1.460999 GESTATIONAL AGE: Age by EDC: 20 weeks, 3 days MIGUE by EDC: 02/15/2022 Age by current US: 19 weeks, 5 days MIGUE by current US: 02/20/2022 IMPRESSION: 1. Single live intrauterine with growth detailed above. 2. Echogenic focus within the left cardiac ventricle; nonspecific but can be associated with the trisomy syndromes. No additional appreciable anatomic abnormality. 3. Suboptimal visualization of the cardiac outflow tracts. Follow-up recommended. Electronically authenticated by: ORQUIDEA RING Date: 2021-10-01 17:[address] [facility] Covid-19 PCR (CVDTBH)on 07-15 SARS-CoV-2 (COVID-19) RNA MANINDER+probe Ql (Unsp spec) Not detected Normal NOT DETECTED [facility] Comment on above: Result Comment: This test is not yet approved or cleared by the [place] FDA. When there are no FDA-approved or cleared tests available, and other criteria are met, FDA can make tests available under an emergency access mechanism called an Emergency Use Authorization (EUA). The EUA for this test is supported by the [place] of Health and Human Service's (HHS's) declaration that circumstances exist to justify the emergency use of in vitro diagnostics for the detection and/or diagnosis of the virus that causes COVID-19. This EUA will remain in effect (meaning this test can be used) for the duration of the COVID-19 declaration justifying emergency of IVDs, unless it is terminated or revoked by FDA (after which the test may no longer be used). When diagnostic testing is negative, the possibility of a false negative should be considered in the context of a patient's recent exposures and the presence of clinical signs and symptoms consistent with SARS-CoV-2. Performed By: #### G 1 #### [facility] [address] [place] [address] Dr. Yilan Chen ALFRED BOX TEST PT SEND OUTo n 07-27-2021 SENT TO REF LAB 07/27/[address]21 Normal [address] [facility] Comment on above: Performed By: #### N BOX #### [facility] [address] [place] [address] Dr. Joanna Chen CBC AUTO DIFFon 07-15-2021 BASO # 0.0 103/ul Normal 0.0-0.[address] [facility] Comment on above: Performed By: #### G LU1HR #### [facility] [address] [place] [address] Dr. Joanna Chen Basophils/100 WBC (Bld) 0.5 % Normal 0.2-2.0 [facility] Comment on above: Performed By: #### G LU1HR #### [facility] [address] [place] [address] Dr. Joanna Chen EO # 0.0 103/ul Normal 0.0-0.7 [facility] Comment on above: Performed By: #### G LU1HR #### [facility] [address] [place] [address] Dr. Joanna Chen Eosinophils/100 WBC (Bld) 0.5 % Critically low 0.9-7.0 [facility] Comment on above: Performed By: #### G LU1HR #### [facility] [address] [place] [address] Dr. Joanna Chen Erythrocyte distribution width (RBC) [Ratio] 13.3 % Normal 11.0-15.0 [facility] Comment on above: Performed By: #### G LU1HR #### [facility] [address] [place] [address] Dr. Joanna Chen Hematocrit (Bld) [Volume fraction] 39.1 % Normal 36.0-48.[address] [facility] Comment on above: Performed By: #### G LU1HR #### [facility] [address] [place] [address] Dr. Joanna Chen Hemoglobin (Bld) [Mass/Vol] 13.0 g/dL Normal 12.0-16.[address] [facility] Comment on above: Performed By: #### G LU1HR #### [facility] [address] [place] [address] Dr. Joanna Chen IG # 0.04 10e3/ul Critically high 0.00-0.03 [facility] Comment on above: Performed By: #### G LU1HR #### [facility] [address] [place] [address] Dr. Joanna Chen IG % 0.5 % Normal 0.0-0.5 [facility] Comment on above: Performed By: #### G LU1HR #### [facility] [address] [place] [address] Dr. Joanna Chen LYMPH # 1.8 103/ul Normal 1.2-3.8 [facility] Comment on above: Performed By: #### G LU1HR #### [facility] [address] [place] [address] Dr. Joanna Chen Lymphocytes/100 WBC (Bld) 20.9 % Normal 20.5-60.0 [facility] Comment on above: Performed By: #### G LU1HR #### [facility] [address] [place] [address] Dr. Joanna Chen MANUAL DIFF REQ NO Normal [facility] Comment on above: Performed By: #### G LU1HR #### [facility] [address] [place] [address] Dr. Joanna Chen MCH (RBC) [Entitic mass] 29.5 pg Normal 26.7-34.0 [facility] Comment on above: Performed By: #### G LU1HR #### [facility] [address] [place] [address] Dr. Joanna Chen MCHC (RBC) [Mass/Vol] 33.2 g/dL Normal 29.9-35.2 [facility] Comment on above: Performed By: #### G LU1HR #### [facility] [address] [place] [address] Dr. Joanna Chen MCV (RBC) [Entitic vol] 88.7 fL Normal 81.0-99.0 [facility] Comment on above: Performed By: #### G LU1HR #### [facility] [address] [address] [address] Joanna Chen MONO # 0.6 103/ul Normal 0.3-0.8 [facility] Comment on above: Performed By: #### G LU1HR #### [facility] [address] [place] [address] Dr. Joanna Chen Monocytes/100 WBC (Bld) 7.2 % Normal 1.7-12.0 [facility] Comment on above: Performed By: #### G LU1HR #### [facility] [address] [place] [address] Dr. Joanna Chen NEUT # 6.1 103/ul Normal 1.4-6.5 [facility] Comment on above: Performed By: #### G LU1HR #### [facility] [address] [place] [address] Dr. Joanna Chen Neutrophils/100 WBC (Bld) 70.4 % Normal 43.0-75.0 [facility] Comment on above: Performed By: #### G LU1HR #### [facility] [address] [place] [address] Dr. Joanna Chen Platelet mean volume (Bld) [Entitic vol] 9.3 fL Critically low 9.5-13.5 [facility] Comment on above: Performed By: #### G LU1HR #### [facility] [address] [place] [address] Dr. Joanna Chen PLT 241 103/ul Normal 150-[address] [facility] Comment on above: Performed By: #### G LU1HR #### [facility] [address] [place] [address] Dr. Joanna Chen RBC 4.41 106/ul Normal 4.20-5.[address] [facility] Comment on above: Performed By: #### G LU1HR #### [facility] [address] [place] [address] Dr. Joanna Chen WBC 8.7 103/ul Normal 4.0-11.[address] [facility] Comment on above: Performed By: #### G LU1HR #### [facility] [address] [place] [address] Dr. Joanna Chen PREG QUANT HCGon 07-15-2021 HCG QUANT 45821 mIU/mL Normal [facility] Comment on above: Performed By: #### C MP, PREGQNT #### [facility] [address] [place] [address] Dr. Joanna Chen HCG RANGE SEE BELOW Normal [facility] Comment on above: Result Comment: 5-50 0-1 WEEK 40-300 1-2 WEEKS 100-1,000 2-3 WEEKS 500-6,000 3-4 WEEKS 5,000-200,000 1-2 MONTHS 10,000-100,000 2-3 MONTHS 3,000-50,000 2ND TRIMESTER 1,000-50,000 3RD TRIMESTER Performed By: #### C MP, PREGQNT #### [facility] [address] [place] [address] Dr. Joanna Chen PROF 14(COMP METB)on 021 Albumin [Mass/Vol] 3.6 g/dL Normal 3.5-5.0 [facility] Comment on above: Performed By: #### C DARRYN, PREGQNT #### [facility] [address] [place] [address] Dr. Joanna Chen Albumin/Globulin [Mass ratio] 1.0 {ratio} Normal [facility] Comment on above: Performed By: #### C MP, PREGQNT #### [facility] [address] [place] [address] Dr. Joanna Chen ALP [Catalytic activity/Vol] 43 U/L Normal 38-[address] [facility] Comment on above: Performed By: #### C MP, PREGQNT #### [facility] [address] [place] [address] Dr. Joanna Chen ALT [Catalytic activity/Vol] 21 U/L Normal 9-52 [facility] Comment on above: Performed By: #### C MP, PREGQNT #### [facility] [address] [place] [address] Dr. Joanna Chen Anion gap [Moles/Vol] 11.5 mmol/L Normal [facility] Comment on above: Performed By: #### C MP, PREGQNT #### [facility] [address] [place] [address] Dr. Joanna Chen AST [Catalytic activity/Vol] 18 U/L Normal 14-36 [facility] Comment on above: Performed By: #### C MP, PREGQNT #### [facility] [address] [place] [address] Dr. Joanna Chen Bilirubin [Mass/Vol] 0.4 mg/dL Normal 0.2-1.[address] [facility] Comment on above: Performed By: #### C MP, PREGQNT #### [facility] [address] [place] [address] Dr. Joanna Chen Calcium [Mass/Vol] 9.3 mg/dL Normal 8.4-10.2 [facility] Comment on above: Performed By: #### C MP, PREGQNT #### [facility] [address] [place] [address] Dr. Joanna Chen Chloride [Moles/Vol] 102 mmol/L Normal 98-[address] [facility] Comment on above: Performed By: #### C MP, PREGQNT #### [facility] [address] [place] [address] Dr. Joanna Chen CO2 [Moles/Vol] 25.5 mmol/L Normal 22.0-30.0 [facility] Comment on above: Performed By: #### C MP, PREGQNT #### [facility] [address] [place] [address] Dr. Joanna Chen Creatinine [Mass/Vol] 0.54 mg/dL Normal 0.52-1.[address] [facility] Comment on above: Performed By: #### C MP, PREGQNT #### [facility] [address] [place] [address] Dr. Joanna Chen EGFR-AF NAURUAN >60 Normal >=[address] [facility] Comment on above: Performed By: #### C MP, PREGQNT #### [facility] [address] [place] [address] Dr. Joanna Chen EGFR-NON AF NAURUAN >60 Normal >=60 [facility] Comment on above: Performed By: #### C MP, PREGQNT #### [facility] [address] [place] [address] Dr. Joanna Chen Globulin (S) [Mass/Vol] 3.7 g/dL Normal [facility] Comment on above: Performed By: #### C MP, PREGQNT #### [facility] [address] [place] [address] Dr. Joanna Chen Glucose [Mass/Vol] 90 mg/dL Normal 74-106 [facility] Comment on above: Performed By: #### C MP, PREGQNT #### [facility] [address] [place] [address] Dr. Joanna Chen Potassium [Moles/Vol] 4.0 mmol/L Normal 3.4-5.0 [facility] Comment on above: Performed By: #### C MP, PREGQNT #### [facility] [address] [place] [address] Dr. Joanna Chen Protein [Mass/Vol] 7.3 g/dL Normal 6.1-8.2 [facility] Comment on above: Performed By: #### C MP, PREGQNT #### [facility] [address] [place] [address] Dr. Joanna Chen Sodium [Moles/Vol] 135 mmol/L Critically low 137-145 [facility] Comment on above: Performed By: #### C MP, PREGQNT #### [facility] [address] [place] [address] Dr. Joanna Chen Urea nitrogen [Mass/Vol] 8.0 mg/dL Normal 7.0-17.0 [facility] Comment on above: Performed By: #### C MP, PREGQNT #### [facility] [address] [place] [address] Dr. Joanna Chen Urea nitrogen/Creatinin e [Mass ratio] 14.8 mg/mg Normal [facility] Comment on above: Performed By: #### C MP, PREGQNT #### [facility] [address] [place] [address] Dr. Joanna Chen US PREG TVon 07-15-2021 US PREG TV EXAMINATION: US PREG TV HISTORY: Abnormal vaginal bleeding COMPARISON: Ultrasound transvaginal 07/02/2021 FINDINGS: GESTATIONAL SAC: Present and normal appearing. POLE: Present and normal appearing. YOLK SAC: Present. CARDIAC: Present. UTERUS: Small subchorionic hematoma; smaller than previously seen. OVARIES: Right: Normal. Left: Corpus lutein cyst CERVIX: 3.7 cm in length and closed. CUL-DE-SAC: Normal. OTHER: None. AGE BY LMP: 9 weeks, 2 days MIGUE BY LMP: 02/15/2022 AGE BY US CRL: 8 weeks, 6 days MIGUE BY US CRL: 02/18/2022 IMPRESSION: 1. Single live intrauterine . 2. Interval decrease in size of the small subchorionic hematoma. Electronically authenticated by: ORQUIDEA RING Date: 2021-07-15 10:[address] [facility] RPR QUANTon 07-06-2021 Rapid Plasma Reagin, Quant Non-Reactive Normal NonRea<1:[address] [facility] Comment on above: Performed By: #### G LU1HR #### [facility] [address] [place] [address] Dr. Joanna Chen RUBELLA AB IGGon 07-06-2021 Rubella Antibodies, IgG 2.68 index Normal Immune >0.[address] [facility] Comment on above: Result Comment: Non- immune <0.90 Equivocal 0.90 - 0.99 Immune >0.99 Performed By: #### C MP, PREGQNT #### [facility] [address] [place] [address] Dr. Joanna Chen HEP B SURFACE ANTIGEN SCREEN on 07-05-2021 HBsAg Screen Negative Normal Negative [facility] Comment on above: Performed By: #### H BSANS #### [facility] [address] [place] [address] Dr. Joanna Chen HEPATITIS C VIRUS AB W/ REFL EX QUANTon 07-05-2021 HCV AB <0.1 Normal 0.0-0.9 [facility] Comment on above: Performed By: #### H BSANS #### [facility] [address] [place] [address] Dr. Joanna Chen Interpretation: Comment Normal [facility] Comment on above: Result Comment: Nega tive Not infected with HCV, unless recent infection is suspected or other evidence exists to indicate HCV infection. Performed By: #### H BSANS #### [facility] [address] [place] [address] Dr. Joanna Chen HIV 1 AND 2 WITH REFLEXon HIV Screen 4th Generation wRfx Non-Reactive Normal Non Reactive [facility] Comment on above: Performed By: #### H IV12 #### [facility] [address] [place] [address] Dr. Joanna Chen CBC AUTO DIFFon 07-04-2021 BASO # 0.1 103/ul Normal 0.0-0.1 [facility] Comment on above: Performed By: #### G LU1HR #### [facility] [address] [place] [address] Dr. Joanna Chen Basophils/100 WBC (Bld) 0.5 % Normal 0.2-2.0 [facility] Comment on above: Performed By: #### G LU1HR #### [facility] [address] [place] [address] Dr. Joanna Chen EO # 0.1 103/ul Normal 0.0-0.7 [facility] Comment on above: Performed By: #### G LU1HR #### [facility] [address] [place] [address] Dr. Joanna Chen Eosinophils/100 WBC (Bld) 0.5 % Critically low 0.9-7.0 [facility] Comment on above: Performed By: #### G LU1HR #### [facility] [address] [place] [address] Dr. Joanna Chen Erythrocyte distribution width (RBC) [Ratio] 13.0 % Normal 11.0-15.0 [facility] Comment on above: Performed By: #### G LU1HR #### [facility] [address] [place] [address] Dr. Joanna Chen Hematocrit (Bld) [Volume fraction] 39.3 % Normal 36.0-48.0 [facility] Comment on above: Performed By: #### G LU1HR #### [facility] [address] [place] [address] Dr. Joanna Chen Hemoglobin (Bld) [Mass/Vol] 12.8 g/dL Normal 12.0-16.0 [facility] Comment on above: Performed By: #### G LU1HR #### [facility] [address] [place] [address] Dr. Joanna Chen IG # 0.04 10e3/ul Critically high 0.00-0.03 [facility] Comment on above: Performed By: #### G LU1HR #### [facility] [address] [place] [address] Dr. Joanna Chen IG % 0.4 % Normal 0.0-0.5 [facility] Comment on above: Performed By: #### G LU1HR #### [facility] [address] [place] [address] Dr. Joanna Chen LYMPH # 2.6 103/ul Normal 1.2-3.8 [facility] Comment on above: Performed By: #### G LU1HR #### [facility] [address] [place] [address] Dr. Joanna Chen Lymphocytes/100 WBC (Bld) 28.1 % Normal 20.5-60.0 [facility] Comment on above: Performed By: #### G LU1HR #### [facility] [address] [place] [address] Dr. Joanna Chen MANUAL DIFF REQ NO Normal [facility] Comment on above: Performed By: #### G LU1HR #### [facility] [address] [place] [address] Dr. Joanna Chen MCH (RBC) [Entitic mass] 29.2 pg Normal 26.7-34.0 [facility] Comment on above: Performed By: #### G LU1HR #### [facility] [address] [place] [address] Dr. Joanna Chen MCHC (RBC) [Mass/Vol] 32.6 g/dL Normal 29.9-35.[address] [facility] Comment on above: Performed By: #### G LU1HR #### [facility] [address] [place] [address] Dr. Joanna Chen MCV (RBC) [Entitic vol] 89.7 fL Normal 81.0-99.[address] [facility] Comment on above: Performed By: #### G LU1HR #### [facility] [address] [place] [address] Dr. Joanna Chen MONO # 0.8 103/ul Normal 0.3-0.8 [facility] Comment on above: Performed By: #### G LU1HR #### [facility] [address] [place] [address] Dr. Joanna Chen Monocytes/100 WBC (Bld) 8.4 % Normal 1.7-12.0 [facility] Comment on above: Performed By: #### G LU1HR #### [facility] [address] [place] [address] Dr. Joanna Chen NEUT # 5.7 103/ul Normal 1.4-6.5 [facility] Comment on above: Performed By: #### G LU1HR #### [facility] [address] [place] [address] Dr. Joanna Chen Neutrophils/100 WBC (Bld) 62.1 % Normal 43.0-75.0 [facility] Comment on above: Performed By: #### G LU1HR #### [facility] [address] [place] [address] Dr. Joanna Chen Platelet mean volume (Bld) [Entitic vol] 9.6 fL Normal 9.5-13.[address] [facility] Comment on above: Performed By: #### G LU1HR #### [facility] [address] [place] [address] Dr. Joanna Chen PLT 277 103/ul Normal 150-[address] [facility] Comment on above: Performed By: #### G LU1HR #### [facility] [address] [place] [address] Dr. Joanna Chen RBC 4.38 106/ul Normal 4.20-5.[address] [facility] Comment on above: Performed By: #### G LU1HR #### [facility] [address] [place] [address] Dr. Joanna Chen WBC 9.2 103/ul Normal 4.0-11.0 [facility] Comment on above: Performed By: #### G LU1HR #### [facility] [address] [place] [address] Dr. Joanna Chen CULTURE URINEon 07-04-2021 CULTURE URINE Culture Observations : NO GROWTH. Normal [facility] Comment on above: Performed By: #### U RCX #### [facility] [address] [place] [address] Dr. Joanna Chen GLYCOHEMOGLOBIN A1Con 2020 ADA RECOMMENDATION ADA THERAPEUTIC TARG ET 6.0 - 7.0 ACTION SUGGESTED > 7.0 Normal [facility] Comment on above: Performed By: #### A 1C #### [facility] [address] [place] [address] Dr. Joanna Chen Glucose [Mass/Vol] 103 mg/dL Normal [facility] Comment on above: Performed By: #### A 1C #### [facility] [address] [place] [address] Dr. Joanna Chen HbA1c (Bld) [Mass fraction] 5.2 % Normal <=6.0 [facility] Comment on above: Performed By: #### A 1C #### [facility] [address] [place] [address] Dr. Joanna Chen TYPE AND SCREENon 07-04-2021 TYPE AND SCREEN Negative Normal [facility] Comment on above: Performed By: #### C MP, PREGQNT #### [facility] [address] [place] [address] Dr. Joanna Chen US PREG TVon 07-03-2021 US PREG TV EXAMINATION: US PREG TV HISTORY: Secondary amenorrhea COMPARISON: No relevant comparison available. FINDINGS: Ferreira intrauterine gestation Gestational sac: 2.36 cm, 7 weeks 0 days CRL: 1.07 cm, 7 weeks 1 day Yolk sac: 0.29 cm Heart rate: 146 bpm Other: 1.4 x 0.8 x 0.4 cm area of hypoechogenicity adjacent to the gestational sac Cervix: Closed, 3.7 cm The uterus is normal in appearance The right ovary is normal in appearance measuring 3.1 x 2.5 1.8 cm per the left ovary is enlarged measuring 4.9 x 4.6 x 3.9 cm. Cystic area measuring 3.6 x 3.1 x 3.1 cm possibly corpus luteal cyst. Clinical age: 7 weeks 3 days Clinical MIGUE: 02/15/2022 Ultrasound age: 7 weeks 1 day Ultrasound MIGUE: 02/17/2022 IMPRESSION: 1.4 cm subchorionic hematoma Viable ferreira intrauterine uterine gestation measuring 7 weeks 1 day Electronically authenticated by: JESSENIA LOPEZ Date: 2021-07-03 07:14 Normal [facility] Coding Summary.on 03-31-2020 Coding Summary. CODING DATE: FINAL [facility] DSC STATUS: Home (Routine DC) PAYOR: Lida ADMNEENA DX: REASON FOR VISIT DX: Z01.812 Encounter for preprocedural laboratory examination FINAL DX: PRINCIPAL: Z01.812 Encounter for preprocedural laboratory examination SECONDARY: Z11.59 Encounter for screening for other viral diseases PYMT PROC APC STAT DESCRIPTION DOCTOR NAME DATE NOTE: The code number assigned matches the documented diagnosis and / or procedure in the patient's chart. However, the narrative phrase printed from the coding software may appear abbreviated, or result in slightly different terminology. Coded By: Karen Michael CphT Date Saved: 03/31/2020 10:26 am Normal [facility] Physician Orderon 03-19-2020 Physician Order [id number]#[id number]:127 Normal [facility] Ambulatory Clinical Summaryo n 02-05-2020 Ambulatory Clinical Summary {[id number] Normal [facility] Coding Summary.on 02-04-2020 Coding Summary. CODING DATE: [facility] DSC STATUS: Home (Routine DC) PAYOR: Lida APC DESCRIPTION 5301 Level 1 Upper GI Procedures ADMIT DX: REASON FOR VISIT DX: R10.13 Epigastric pain FINAL DX: PRINCIPAL: K29.70 Gastritis, unspecified, without bleeding SECONDARY: PYMT PROC APC STAT DESCRIPTION DOCTOR NAME DATE 01800 5301 T Teddy HERNANDEZ MD 01/25/2020 phagogastroduodenoscopy, flexible, transoral; with biopsy, single or multiple [id number] Anesthesia for upper 01/25/2020 gastrointestinal endoscopic procedures, endoscope introduced proximal to duodenum; not otherwise specified NOTE: The code number assigned matches the documented diagnosis and / or procedure in the patient's chart. However, the narrative phrase printed from the coding software may appear abbreviated, or result in slightly different terminology. Revised Coded By: Constance Means Revised Date Saved: 02/04/2020 12:33 pm Normal [facility] IntraOperative Documentson 0 01-29-2020 IntraOperative Documents [id number]:127 Normal [facility] Postoperative Documentson Postoperative Documents [id number]#1.00CD:127 Normal [facility] Main OR Intraoperative Recor don 01-28-2020 Main OR Intraoperative Record IntraOp Document Type FT Summary Primary Physician: Teddy HERNANDEZ MD Finalized Date/Time: 01/28/20 09:11:27 Pt. Name: JOSSELIN RIVERS/Sex: 1995 Female Med Rec #: [id number] Physician: Teddy HERNANDEZ MD Financial #: [id number] Pt. Type: O Room/Bed: / Admit/Disch: 01/25/20 09:25:47 - 01/25/20 23:59:59 Institution: Case Times FT Entry 1 Patient Times In Room 01/25/20 10:06:00 Out Room 01/25/20 10:18:00 Procedure Times Start 01/25/20 10:09:00 Stop 01/25/20 10:15:00 Anesthesia Times Start 01/25/20 10:06:00 Stop 01/25/20 10:18:00 Last Modified By: Lorena Singleton RN 01/25/20 10:18:15 General Comments: 01/28/2020 Chart opened to review and send charges Mohit Mota CST Case Attendance FT Entry 1 Entry 2 Entry 3 Case Attendee Manuel Lyman Jr., DO, MD, Teddy Pruett CST, Rod Altamirano Role Performed Anesthesiologist of Surgeon - Primary Scrub - Primary Record Time In 01/25/20 10:06:00 01/25/20 10:06:00 01/25/20 10:06:00 Time Out 01/25/20 10:18:00 01/25/20 10:18:00 01/25/20 10:18:00 Procedure EGD(.) EGD(.) EGD(.) Comments Last Modified By: Lorena Singleton RN, RN, Lorena Starkey RN 01/25/20 10:18:20 01/25/20 10:18:20 01/25/20 10:18:20 Entry 4 Case Attendee Lorena Singleton RN Role Performed Motorcycle Designer - Primary Time In 01/25/20 10:06:00 Time Out 01/25/20 10:18:00 Procedure EGD(.) Comments Last Modified By: Lorena Singleton RN 01/25/20 10:18:20 Perioperative Protocols FT Pre-Care Text: Implements protective measures prior to operative or invasive procedure, confirms identity before the operative or invasive procedure, verifies operative procedure, surgical site, and laterality Entry 1 Procedure(s) EGD(.) Patient Identity Birthday, ID Band Verified (select at Check, Patient least 2): Participation Consents / H and P Anesthesia Consent, Operative Site N/A Verified HandP, Surgery/Procedure Marking Verified Consent Surgical Site Yes Laterality Verified Yes Verified Procedure Verified Yes Correct Patient Yes Position Verified Availability Equipment, Medication Prep Dry n/a Verified (If Applicable) PreOp Antibiotic No Time Out SHAHZAD VALLE, Teddy Marie, Ronak Pruett CST, Rod Altamirano, Areli EARLY, Nura Rashid Jr., DO, Gary Time Out Complete 01/25/20 10:07:00 Outcomes Met? Yes Last Modified By: Lorena Singleton RN 01/25/20 10:09:13 Post-Care Text: The patient is free from signs and symptoms of injury caused by extraneous objects Allergy Information FT Pre-Care Text: Verifies allergies Entry 1 Allergies Reviewed? Yes Allergies Reviewed Self/Patient With Outcomes Met? Yes Last Modified By: Lorena Singleton RN 01/25/20 09:53:19 Post-Care Text: The patient received appropriate medication(s) safely administered during the perioperative period Surgical Procedures FT Entry 1 Procedure Description Procedure EGD Modifiers . Surgeon Description EGD, DUODENUM TISSUE BIOPSY, ANTRUM TISSUE BIOPSY Primary Procedure Yes Primary Surgeon Teddy HERNANDEZ MD 01/25/20 10:09:00 Stop 01/25/20 10:15:00 Anesthesia Type General Surgical Service General Wound Class 2 - Clean-Contaminated Last Modified By: Lorena Singleton RN 01/25/20 10:23:07 General Case Data FT Pre-Care Text: Classifies surgical wound, implements aseptic technique, initiates traffic control Entry 1 Case Information OR ENDO 2 FT Case Level Level 2 Wound Class 2 - Clean-Contaminated Specialty General ASA Class 2 Preop Diagnosis RIGHT UPPER QUADRANT Postop Same As Preop No PAIN Postop Diagnosis ANTRAL GASTRITIS Outcomes Met? Yes Last Modified By: Lorena Singleton RN 01/25/20 10:23:27 Post-Care Text: The patient is free from signs and symptoms of infection Skin Assessment (Pre Procedure) FT Pre-Care Text: Implements protective measures to prevent skin/ tissue injury due to thermal or mechanical sources Evaluates for signs and symptoms of physical injury to skin and tissue Entry 1 Skin Integrity Intact, [place], Warm, and Skin Abnormality No Dry Outcomes Met? Yes Last Modified By: Lorena Singleton RN 01/25/20 10:09:22 Post-Care Text: The patient is free from signs and symptoms of injury caused by extraneous objects Patient Positioning FT Pre-Care Text: Identifies physical alterations that require additional precautions for procedure-specific positioning, verifies presence of prosthetics or corrective devices, positions the patient, evaluates the patient for signs and symptoms of injury as a result of positioning Entry 1 Procedure EGD(.) Body Position Lateral, right side up Feet Uncrossed? Yes Left Arm Position Resting at Side Right Arm Position Resting at Side Left Leg Position Extended Right Leg Position Extended Positioning Device Pillow Under Head Large Press Points Checked Yes By Lorena Singleton RN, Fennig Jr. DO, Gary Outcomes Met? Yes Last Modified By: Lorena Singleton RN 01/25/20 09:52:14 Post-Care Text: The patient is free from signs and symptoms of injury related to positioning Patient Care Devices FT Pre-Care Text: Implements protective measures to prevent skin/ tissue injury due to thermal or mechanical sources Entry 1 Entry 2 Equipment Type ENDOSCOPY VIDEO MONITOR CHARGE SURGERY SYSTEM[F] [F] Equipment Number BOOM ENDO ROOM 2 ENDO ROOM 2 Equipment Setting Outcomes Met? Yes Yes Last Modified By: Lorena Singleton RN, RN, Kimberly Y 01/25/20 09:38:24 01/25/20 09:38:24 Post-Care Text: The patient is free from signs and symptoms of injury caused by extraneous objects Transport To OR FT Pre-Care Text: Transports according to individual needs. Evaluates for signs and symptoms of skin and tissue injury as a result of transfer or transport Entry 1 Via Cart By Lorena Singleton RN Safety Precautions Side Rails Up Outcomes Met? Yes Last Modified By: Lorena Singleton RN 01/25/20 09:37:56 Post-Care Text: The patient is free from signs and symptoms of injury related to transfer/transport Departure From OR FT Pre-Care Text: Transports according to individual needs. Evaluates for signs and symptoms of skin and tissue injury as a result of transfer or transport. Entry 1 Via Cart Safety Precautions Side Rails Up PostOp Destination PACU Transported By Lorena Singleton RN Patient Status Stable Skin. Condition Other/See Comments Description SKIN CONDITION SAME PREOP Airway Maintenance Oxygen in Use? No Outcomes Met? Yes Last Modified By: Lorena Singleton RN 01/25/20 09:37:49 Post-Care Text: The patient is free from signs and symptoms of injury related to transfer/transport General Comments: REPORT GIVEN TO PACU NURSE. SHARATH DUTTAsupervisor pumping station Administration FT Pre-Care Text: Verifies allergies, administers prescribed medications and solutions, administers prescribed antibiotic therapy and immunizing agents as ordered, evaluates response to medications Administers prescribed medications and solutions Entry 1 Route of Admin Field Expiration Date Yes Verified Ordered By Teddy HERNANDEZ MD Transcribed/To Lorena Singleton RN Field By Administered By Teddy HERNANDEZ MD Outcomes Met? Yes Last Modified By: Lorena Singleton RN 01/25/20 09:37:14 Post-Care Text: The patient received appropriate medication(s) safely administered during the perioperative period For [facility] please see scanned medication reconcilliation form for medications used at the field during the procedure. Cultures and Specimens FT Pre-Care Text: Manages specimen handling and disposition Manages culture specimen collection Entry 1 Cultures Ordered No Specimens Ordered Yes Specimen Disposition Designated OR Area Frozen Section Times Outcomes Met? Yes Last Modified By: Lorena Singleton RN 01/25/20 10:25:52 Post-Care Text: The patient is free from signs and symptoms of injury caused by extraneous objects The patient is free from signs and symptoms of infection General Comments: SPECIMENS ORDERED - DUODENUM TISSUE BIOPSY AND ANTRUM TISSUE BIOPSY - SENT SEPARATELY - TO DESIGNATED ENDO AREA. SHARATH DUTTA Case Comments Finalized By: Zabrina Mota CST Document Signatures Signed By: Lorena Singleton RN 01/25/20 10:25 Zabrina Mota CST 01/28/20 09:11 [facility] Consenton 01-25-2020 Consent [id number]#[id number]:127 [facility] Consent for Treatmenton 01-13 Consent for Treatment [id number]#1.00CD:127 [facility] Discharge Instructionson Discharge Instructions [id number]#1.00CD:127 [facility] History and Physicalon 01-24 History and Physical [id number]#[id number]:127 Normal [facility] History and Physical Patient: JOSSELIN RIVERS Age: 24 years Sex: Female : 1995 Associated Diagnoses: None Author: Teddy HERNANDEZ MD Subjective no changes to H & P Normal [facility] Comment on above: Result Comment: Elec tronically Signed By: Teddy HERNANDEZ MD\.br\Date and Time Signed: 01/25/20 09:47 EDT Inpatient Patient Summaryon 01-25-2020 Inpatient Patient Summary [place] [id number] [facility] Clinical Discharge Instructions PERSON INFORMATION Name: JOSSELIN RIVERS PHYSICIANS Admitting Physician: Teddy HERNANDEZ MD Attending Physician: Teddy HERNANDEZ MD PCP: Marcello Byrd MD Discharge Diagnosis: Antral gastritis Comment: PATIENT EDUCATION INFORMATION Instructions: Medication Leaflets: Follow up: With: Address: When: Teddy JATINLeyda [address] [facility], [address], [place] [id number] Business (1) Within 7 to 10 days MEDICATION LIST Medications to Continue with No Changes Other Medications ethinyl estradiol-norethindrone (Nortrel oral tablet) 1 Tablets By Mouth every day. Comment: Normal [facility] IntraOperative Documentson 0 01-25-2020 IntraOperative Documents [id number]#[id number]:127 [facility] IntraOperative Documents [id number]#1.00CD:127 [facility] Main OR PACU I Recordon 01-13 Main OR PACU I Record PACU Phase I Document Type FT Summary Primary Physician: Teddy HERNANDEZ MD Finalized Date/Time: 01/25/20 10:57:36 Pt. Name: JOSSELIN RIVERS Filipe RojasB./Sex: 1995 Female Med Rec #: [id number] Physician: Teddy HERNANDEZ MD Financial #: [id number] Pt. Type: O Room/Bed: / Admit/Disch: 01/25/20 09:25:47 - Institution: Case Times PACU I FT Pre-Care Text: Identifies barriers to communication and implements measures to provide psychological support Develops individualized plan of care, and ensures continuity of care Maintains patient's dignity and privacy, and maintains patient confidentiality Identifies and reports philosophical, cultural, and spiritual beliefs and values Identifies individual values and wishes concerning care Implements aseptic technique, and administers prescribed antibiotic therapy and immunizing agents as ordered Evaluates postoperative tissue perfusion Implements thermoregulation measures, and monitors body temperature Evaluates postoperative respiratory status Evaluates postoperative cardiac status Evaluates postoperative neurological status Assesses pain control, collaborated in initiating patient-controlled analgesia and implements alternative methods of pain control Verifies allergies, administers prescribed medications and solutions, evaluates response to medications Entry 1 In PACU I 01/25/20 10:20:00 Discharge from PACU 01/25/20 10:50:00 I Outcomes Met? Yes Last Modified By: Angela Meza RN 01/25/20 10:57:27 Post-Care Text: The patient demonstrates knowledge of the expected response to the operative or invasive procedure The patient's care is consistent with the individualized perioperative plan of care The patient's right to privacy is maintained The patient's value system, lifestyle, ethnicity, and culture are considered, respected, and incorporated into the perioperative plan of care The patient participates in decisions affecting his or her perioperative plan of care The patient is free from signs and symptoms of infection The patient has wound/tissue perfusion consistent with or improved from baseline levels established preoperatively The patient is at or returning to normothermia at the conclusion of the immediate postoperative period The patient's respiratory function is consistent with or improved from baseline levels established preoperatively The patient's cardiovascular status is consistent with or improved from baseline levels established preoperatively The patient's cardiovascular status is consistent with or improved from baseline levels established preoperatively The patient demonstrates and/or reports adequate pain control throughout the perioperative period The patient received appropriate medication(s), safely administered during the perioperative period Acuity Level PACU I FT Entry 1 Start Time 01/25/20 10:20:00 Stop Time 01/25/20 10:50:00 Acuity Level Acuity Level I Last Modified By: Angela Meza RN 01/25/20 10:57:35 Finalized By: Angela Meza RN Document Signatures Signed By: Angela Meza RN 01/25/20 10:57 Normal [facility] Main OR Preoperative Recordo n 01-25-2020 Main OR Preoperative Record Holding Area Document Type FT Summary Primary Physician: Teddy HERNANDEZ MD Finalized Date/Time: 01/25/20 09:50:47 Pt. Name: JOSSELIN RIVERS Krishna/Sex: 1995 Female Med Rec #: [id number] Physician: Teddy HERNANDEZ MD Financial #: [id number] Pt. Type: O Room/Bed: / Admit/Disch: 01/25/20 09:25:47 - Institution: Case Times Holding FT Pre-Care Text: Verifies consent for planned procedure, identifies individual values and wishes concerning care, includes family members in perioperative teaching Secures patient's records' belongings, and valuables, maintains patient's dignity and privacy, and maintains patient confidentiality Entry 1 In Holding 01/25/20 09:36:00 Last Modified By: Krystal Valdez RN 01/25/20 09:40:25 Post-Care Text: The patient participates in decisions affecting his or her perioperative plan of care The patient's right to privacy is maintained Surgery Checklist FT Entry 1 Patient Birthday, ID Band Procedure History and Physical, Identification: Check, Patient Verification: Surgical Consent, With Participation Patient NPO after Midnight: Yes Personal Items: Jewelry Complaints of Pain: No Availability Equipment Verified: Does Patient Smoke No Patient states Yes Comment - Adult boyfriend - Basil postop adult Supervision supervision available Case Cancelled in No Holding Area see comments below for reason Last Modified By: Krystal Valdez RN 01/25/20 09:41:20 Finalized By: Krystal Valdez RN Document Signatures Signed By: Krystal Valdez RN 01/25/20 09:50 Normal [facility] Monitor Recordon 01-25-2020 Monitor Record [id number]:127 Normal [facility] Operative Reporton 0 Operative Report Date of Surgery: 07/2020 SURGEON: Teddy Hernandez M.D. PREOPERATIVE DIAGNOSIS: Epigastric abdominal pain, right upper quadrant pain POSTOPERATIVE DIAGNOSIS: Mild antral gastritis OPERATION: Esophagogastroduodenoscopy with antral and duodenal biopsies ANESTHESIA: Monitored anesthesia care ESTIMATED BLOOD LOSS: Less than 1 mL INDICATIONS AND CONSENT: The patient is a 24-year-old female with a history of intermittent upper abdominal pain as well as some nausea and some food intolerance. Indications, risks, benefits, alternatives of proceeding with EGD were explained extensively to the patient including risk of bleeding, aspiration, esophageal gastric duodenal perforation, or anesthetic complication. All of her questions were answered. Informed consent was obtained. PROCEDURE: The patient was brought to the Operating Room and placed in the left lateral decubitus position. Monitored anesthesia care was provided. Bite block was placed in the patient's mouth. The scope was inserted at the oropharynx. Under direct visualization it was advanced into the esophagus, past the cricopharyngeus down to the stomach. The stomach was insufflated with air. The pylorus was traversed down the descending portion of the duodenum. There was no evidence of duodenitis or ulceration. There was no scarring within the pyloric channel. Biopsy of the duodenum was obtained with pediatric cold biopsy forceps due to the patient's symptoms as well as family history of celiac disease. The scope was pulled back into the stomach and retroflexed. There was no significant hiatal hernia. There was noted to be some mild antral gastritis. Biopsy was obtained with pediatric cold biopsy forceps with good hemostasis. Gastroesophageal junction was noted at 40 cm. There was no distal esophagitis or Patiño's changes. The remainder of the esophagus was unremarkable. The scope was then withdrawn. The patient tolerated the procedure well and was sent to Recovery Room in good condition. Nima Stevens Dictated: 01/25/2020 #[id number] Typed: 01/25/2020 #[id number] cc: Nima Higginbotham M.D. [facility] Comment on above: Result Comment: Elec tronically Signed By: Teddy HERNANDEZ MD\Date and Time Signed: 01/25/20 12:21 EDT Patient Education - Texton 0 01-25-2020 Patient Education - Text [facility] Progress Note-Physicianon Progress Note-Physician Patient: JOSSELIN RIVERS Age: 24 years Sex: Female : 1995 Associated Diagnoses: None Author: Manuel Lyman Jr., DO Preoperative Information Anesthesia history: Patient History: Pt./ family denies any personal or family hx of problems/difficulties with anesthesia.. Re-eval prior to induction: Inital eval reviewed: No significant interval change, NPO 10 hours. Pt finished oral prep at least 4 hours ago.. Anesthesia results Review of Systems Constitutional: See nursing pain assessment.. Cardiovascular: Cardiac risk assessment performed. Pt. denies any significant change in their cv hx.. Respiratory: Pt. denies any signicant change in their respiratory status.. Neurologic: Pt. denies any acute neurological changes.. Health Status Allergies: Allergic Reactions (Selected) No Known Medication Allergies, Allergies (1) Active Reaction No Known Medication Allergies None Documented Current medications: (Selected) Inpatient Medications Ordered Sodium Chloride 0.9% IV Sophia 1000 mL 1,000 mL: 1,000 mL, IV, 20 mL/hr, Routine, Start date 01/25/20 9:49:00 EDT, 50 hour(s), Total volume (mL): 1,000 Documented Medications Documented Nortrel oral tablet: 1 tab(s), Oral, Daily, Refill(s) 0, Medications (1) Active Scheduled: (0) Continuous: (1) Sodium Chloride 0.9% 1,000 mL 1,000 mL, IV, 20 mL/hr PRN: (0) Problem list: All Problems Chronic tonsillitis / SNOMED CT 149990044 / Confirmed Abdominal pain, epigastric / SNOMED CT 062945318 / Confirmed Abdominal pain, left upper quadrant / SNOMED CT 406417556 / Confirmed Loss of appetite / SNOMED CT 739933168 / Confirmed Migraine / SNOMED CT 95727692 / Confirmed Nausea in adult / SNOMED CT 6019416960 / Confirmed Patellofemoral syndrome / SNOMED CT 8118781309 / Confirmed Raynaud's syndrome / SNOMED CT 974842702 / Confirmed, Active Problems (8) Abdominal pain, epigastric Abdominal pain, left upper quadrant Chronic tonsillitis Loss of appetite Migraine Nausea in adult Patellofemoral syndrome Raynaud's syndrome Histories Past Medical History: No active or resolved past medical history items have been selected or recorded. Family History: No family history items have been selected or recorded. Procedure history: Arthroscopy of knee ([id number]). Comments: 12/25/2019 14:10 EDT - Roxanne Morales LPN 2014 or 2015 Social History Social & Psychosocial Habits Alcohol 12/25/2019 Use: Current Type: Liquor, Wine Frequency: 1-2 times per month Substance Abuse 12/25/2019 Risk Assessment: Denies Substance Abuse Tobacco 12/25/2019 Risk Assessment: Denies Tobacco Use 12/25/2019 Tobacco Use: Never (less than 100 in l Smokeless tobacco use: Never . Physical Examination Vital Signs 01/25/2020 9:45 EDT Temperature Temporal Artery 37.2 DegC Heart Rate Monitored 93 bpm Respiratory Rate Monitored 13.0 br/min Systolic Blood Pressure 116 mmHg Diastolic Blood Pressure 79 mmHg Blood Pressure Location Left arm SpO2 100 % Vital Signs (last 24 hrs) Last Charted SBP 116 mmHg (JAN 24 09:45) DBP 79 mmHg (JAN 24 09:45) SpO2 100 % (JAN 24 09:45) Airway: Normal oral/pharyngeal anatomy.. Respiratory: Adequate air exchange.. Cardiovascular: Adequate perfusion and function. Review / Management Results review: No qualifying data available . Plan [place] [employer] (ASA) physical status classification: Class II. Anesthetic Preoperative Plan Anesthesia: Monitored anesthesia care and general anesthesia if required.. Anesthetic plan, risks, benefits, and alternatives discussed with the patient and/or family. Pt. and/or family present and agree to proceed as planned.. Normal [facility] Comment on above: Result Comment: Elec tronically Signed By: Manuel Lyman Jr., DO\.br\Date and Time Signed: 01/25/20 09:57 EDT Encounters Encounter Date Encounter Type Care Provider Facility Start: 08-23-2023 End: 08-23-2023 ambulatory DIONISIO MIRANDA Not Available Start: 07-20-2023 End: 07-20-2023 ambulatory DIONISIO MIRANDA Not Available Start: 05-26-2022 End: 05-26-[address] DIONISIO MIRANDA Facility:[facility] Start: 02-08-2022 End: 02-08-[address] NONE LISTED REQUEST Facility:[facility] Start: 02-01-2022 End: 02-04-2022 Evaluation and management of inpatient DR DIONISIO MIRANDA Facility:[facility] Start: 01-27-2022 Evaluation and manag ement of inpatient DR NONE LISTED REQUEST Facility:[facility] Start: 01-21-2022 End: 01-21-[address] DIONISIO MIRANDA Facility:[facility] Start: 12-21-2021 End: 12-22-[address] DIONISIO MIRANDA Facility:[facility] Start: 10-30-2021 End: 10-31-[address] DIONISIO MIRANDA Facility:[facility] Start: 10-19-2021 End: 10-20-[address] JESSENIA LOPEZ Facility:[facility] Start: 10-01-2021 End: 10-02-2021 ambulatory NONE LISTED REQUEST Facility:[facility] Start: 07-30-2021 End: 07-30-2021 ambulatory NONE LISTED REQUEST Facility:[facility] Start: 07-27-2021 End: 07-28-[address] DIONISIO MIRANDA Facility:[facility] Start: 07-15-2021 End: 07-15-[address] ORQUIDEA RING Facility:[facility] Start: 07-04-2021 End: 07-05-[address] DIONISIO MIRANDA Facility:[facility] Start: 07-02-2021 End: 07-03-[address] JESSENIA LOPEZ Facility:[facility] Procedures Date Procedure Procedure Detail Performing Clinician Start: 02-04-2022 Introduction of Othe r Therapeutic Substance into Spinal Canal, Percutaneous Approach DR DIONISIO MIRANDA Start: 02-01-2022 Extraction of Produc ts of Conception, Low Cervical, Open Approach DR DIONISIO MIRANDA Start: 02-01-2022 Reposition Products of Conception, External Approach DR DIONISIO MIRANDA Payers Date Payer Category Payer Unknown [id number] 1995 Unknown [id number] 2.16.84 [id number] 1995 Unknown [id number] 2.16.84 0.1.423029.3.579.2593 1995 Unknown [id number] 2.16.84 0.1.715137.3.579.259 1995 Unknown [id number] 2.16.84 0.1.719223.3.579.2.593 1995 Unknown [id number] 2.16.84 0.1.254353.3.579.2.593 1995 Unknown [id number] 2.16.84 0.1.103201.3.579.2.593 1995 Unknown [id number] 2.16.84 0.1.596327.3.579.2.593 1995 Unknown [id number] 2.16.84 0.1.095440.3.579.2.593 1995 Unknown [id number] 2.16.84 0.1.808308.3.579.2.593 1995 Unknown [id number] 2.16.84 0.1.529385.3.579.2.593 1995 Unknown [id number] 2.16.84 0.1.328612.3.579.2.593 1995 Unknown [id number] 2.16.84 0.1.432034.3.579.2.593 1995 Unknown [id number] 2.16.84 0.1.296097.3.579.2.593 1995 Unknown [id number] 2.16.84 0.1.715697.3.579.2.1259 1995 Unknown [id number] 2.16.840 .1.508776.3.579.2.1259 1957 Self-pay 1957 Unknown [id number] 1957 Unknown [id number] 1957 Unknown [id number] Unknown [id number] 2.16.84 0.1.762938.3.579.2.593 Clinical Note 02-01-2022 Note Date & Type Note Facility 02-01-2022 Note [facility] [place], [place] NAME: BRIANNE JOSSELIN Filpie DATE OF : MEDICAL REC#: [id number] CANCER REGISTRAR: ISMAEL LEI ADMIT DATE: 02/01/2022 07:59:00 CELL STRIPPER DATE: 02/02/2022 22:13 DICTATING PHYSICIAN: DIONISIO MIRANDA DICTATION DATE: 02/01/2022 18:10 OPERATIVE NOTE OPERATION DATE: 02/01/2022 PROCEDURE: Primary low transverse section. PREOPERATIVE DIAGNOSIS: 1. Intrauterine at 38 weeks. 2. External cephalic version failure. 3. Breech presentation. 4. Early labor, contractions with cervical change. POSTOPERATIVE DIAGNOSIS: 1. Intrauterine at 38 weeks. 2. External cephalic version failure. 3. Breech presentation. 4. Early labor, contractions with cervical change. ANESTHESIA: Spinal with Duramorph. SURGEON: Dionisio Miranda D.O. PARQUETRY LAYER: THERESE Abbasi URINE OUTPUT: Yellow and clear. BLOOD LOSS: 600 mL. FINDINGS: Viable male. Apgars 9 at 1, 9 at 5. Weight 6 pounds 7 ounces. SPECIMEN: Placenta. PROCEDURE: Patient was taken back to the Operating Room where she was given a spinal anesthesia with Duramorph without difficulty. She was prepped and draped in the normal sterile fashion. A Pfannenstiel skin incision was then made 2 cm above the symphysis pubis and carried down to underlying rectus fascia using a Bovie. The fascia was incised in the midline and extended laterally using Hart scissors. Two Makeda clamps were placed on the superior aspect of the fascia and dissected off the underlying rectus muscles. The same was performed on the inferior aspect as well. The muscles were then in the midline. Peritoneum was identified and entered bluntly. The peritoneum was then extended superiorly and inferiorly with good visualization of the bladder. The bladder blade was inserted. A low transverse incision was made on the patient's uterus and extended laterally digitally. The infant was then delivered atraumatically after the bladder blade was removed in the breech position. The cord was clamped and cut. Cord blood was obtained. The was handed off to awaiting team. The patient's placenta was spontaneously delivered. The uterus was then exteriorized. The uterus was cleared of all clots and debris. The bladder blade was reinserted. The patient's uterine incision was closed using #0 Vicryl in a running lock fashion. Excellent hemostasis was assured. The uterus was then returned to the patient's abdomen. The patient's abdomen was copiously irrigated using warm saline. Peritoneal gutters were cleared of all clots and debris. Again excellent hemostasis was assured. The patient's peritoneum was closed using 3-0 Vicryl in a running fashion. The patient's fascia was closed using #0 Vicryl in a running fashion. The patient's skin was closed using 4-0 Vicryl subcuticularly. The patient tolerated the procedure well. Sponge, lap, and needle counts were correct x2. The patient was taken to the Recovery Room in stable condition. Electronically Authenticated and Edited by: Dionisio Miranda DO on 02/04/2022 10:17 AM EDT IF Signed and Approved by: DR DIONISIO MIRANDA . 02/04/2022 10:17:00 [facility] Discharge summary note 02-01-2022 Note Date & Type Note Facility 02-01-2022 Note DISCHARGE SUMMARY DISCHARGE DATE: 02/04/2022 PRIMARY DIAGNOSES: 1. Intrauterine at 38 weeks. 2. Failed external cephalic version. 3. Breech presentation. 4. Early labor, contractions with cervical change. PROCEDURE: Primary low transverse section. HOSPITAL COURSE: As expected. Please see chart for full details. LABORATORY DATA: Please see chart. COMPLICATIONS: None. DISCHARGE CONDITION: Stable. CONSULTATION: Anesthesia. DISCHARGE INSTRUCTIONS: 1. Diet: Regular. 2. Medications: a. Percocet 5/325 one to two p.o. every 4-6 hours p.r.n. pain. b. Motrin 800 one p.o. every 8 hours p.r.n. pain. 3. Followup in one week. Restrictions: Pelvic rest for 6 weeks. No heavy lifting. May drive when pain free and no longer on narcotics. IFC Signed and Approved by: DR DIONISIO MIRANDA . 02/07/2022 10:46:00 [facility] Summary Purpose Family History No Family History Records FoundNo Family History Records FoundNo Family History Records Found Advance Directives No Advanced Directives Records FoundNo Advanced Directives Records FoundNo Advanced Directives Records Found Procedure Findings Note Patient: JOSSELIN RIVERS [facility]: [id number] Age: 24 years Sex: Female : 1995 Associated Diagnoses: None Author: Manuel Lyman Jr., DO Postoperative Information Post Operative Note Anesthetic utilized: Monitored anesthesia care. Health Status Allergies: Allergic Reactions (Selected) No Known Medication Allergies Current medications: (Selected) Documented Medications Documented Nortrel oral tablet: 1 tab(s), Oral, Daily, Refill(s) 0 Problem list: All Problems Chronic tonsillitis / SNOMED CT 277412292 / Confirmed Abdominal pain, epigastric / SNOMED CT 536722309 / Confirmed Abdominal pain, left upper quadrant / SNOMED CT 212027564 / Confirmed Loss of appetite / SNOMED CT 172338819 / Confirmed Migraine / SNOMED CT 31486347 / Confirmed Nausea in adult / SNOMED CT 8246261622 / Confirmed Patellofemoral syndrome / SNOMED CT 8408305421 / Confirmed Raynaud's syndrome / SNOMED CT 787268919 / Confirmed Physical Examination Intake and Output Pt. denies significant n/v, and is (more content not included)... Additional Source Comments INFORMATION SOURCE (unrecogn ized section and content) DATE CREATED AUTHOR [facility]31/2020 [facility] DATE CREATED AUTHOR AUTHOR'S ORGANIZ ATION [facility] DATE CREATED AUTHOR AUTHOR'S ORGANIZ ATION 08/24/2023 [facility] FOR RECORDS PERTAINING TO PATIENTS WHO ARE OR HAVE BEEN ENROLLED IN A CHEMICAL DEPENDENCY/SUBSTANCEABUSE PROGRAM, SOME INFORMATION MAY BE OMITTED. This clinical summary was aggregated from multiple sources. Caution should be exercised in using it in the provision of clinical care. This summary normalizes information from multiple sources, and as a consequence, information in this document may materially change the coding, format and clinical context of patient data. In addition, data may be omitted in some cases. CLINICAL DECISIONS SHOULD BE BASED ON THE PRIMARY CLINICAL RECORDS. [employer] provides no warranty or guarantee of the accuracy or completeness of information in this document.
[2023-09-10 09:05] LABS: Basophils Percent Auto 0.4 % (0.2-2.0); Eosinophils Absolute Auto 0.2 10^3/uL (0.0-0.7); Eosinophils Percent Auto 2.3 % (0.9-7.0); Hematocrit 37.4 % (36.0-48.0); Immature Granulocytes Abs Auto 0.09 10^3/uL (0.00-0.03); Immature Granulocytes Pct Auto 0.9 % (0.0-0.5); Lymphocytes Absolute Auto 1.9 10^3/uL (1.2-3.8); Lymphocytes Percent Auto 18.5 % (20.5-60.0); Mean Corpuscular HGB Conc 32.1 g/dL (29.9-35.2); Mean Corpuscular Hemoglobin 29.8 pg (26.7-34.0); Mean Corpuscular Volume 92.8 fL (81.0-99.0); Mean Platelet Volume 9.7 fL (9.5-13.5); Monocytes Absolute Auto 0.6 10^3/uL (0.3-0.8); Monocytes Percent Auto 6.2 % (1.7-12.0); Neutrophils Absolute Auto 7.3 10^3/uL (1.4-6.5); Neutrophils Percent Auto 71.7 % (43.0-75.0); Platelet Count 241 10^3/uL (150-450); Red Blood Count 4.03 10^6/uL (4.20-5.40); Red Cell Distribution Width 13.6 % (11.0-15.0); White Blood Count 10.2 10^3/uL (4.0-11.0)
[2023-09-10 16:27] LABS: Glucose 1 Hour 122 mg/dL
== END 2023-09-10 07:53 | disposition home or self-care (01) ==
LOC: LAB 07:53
PROVIDERS: PCP Family Medicine; Visit Provider Physician Assistant
DX: O44.42 Low lying placenta NOS or without hemorrhage, second trimester (principal); Z13.1 Encounter for screening for diabetes mellitus; Z3A.24 24 weeks gestation of pregnancy
CPT/HCPCS: 36415; 76815; 76817; 82950; 85025

== ENCOUNTER 2023-09-24 07:58 | Outpatient (OUT) | payer OTHER, SELFPAY ==
--- NOTE | 2023-09-24 | US_ITS ---
[place] [id number] Patient Name: JOSSELIN DECKER MRN: [id number] date: 1995 Sex: F Assigned Patient Location: Current Patient Location: Accession/Order Number: [id number] Exam Date: 09/24/2023 08:07 Report Date: 09/26/2023 07:10 At the request of: DIONISIO CHADWICK Procedure: US OB placenta EXAMINATION: US OB transvaginal, US OB placenta HISTORY: PACENTAL ABNORMALITY IN SECOND TRIMESTER 043.102 COMPARISON: 09/10/2023 FINDINGS: position: Cephalic presentation, longitudinal lie Amniotic fluid: Subjectively normal Placenta: Anterior, placental edge 6.6 cm from the internal os. Grade 1. Again demonstrated is an area of hypoechogenicity along the edge of the placenta measuring 4.6 x 2.6 x 2.8 cm. Additional areas of hypoechogenicity within the placenta Heart rate: 151 beats minute Cervix: Closed, 4.4 cm US/US OB placenta IMPRESSION: Stable 4.6 cm avascular area of hypoechogenicity along the edge of the placenta, placental hernandez versus an area of hemorrhage Electronically authenticated by: JESSENIA LOPEZ Date: 09/26/2023 07:10
--- NOTE | 2023-09-24 | US_ITS ---
[address] [address] Patient Name: JOSSELIN DECKER MRN: [id number] date: 1995 Sex: F Assigned Patient Location: Current Patient Location: Accession/Order Number: [id number] Exam Date: 09/24/2023 08:07 Report Date: 09/26/2023 07:10 At the request of: DIONISIO CHADWICK Procedure: US OB transvaginal EXAMINATION: US OB transvaginal, US OB placenta HISTORY: PACENTAL ABNORMALITY IN SECOND TRIMESTER 043.102 COMPARISON: 09/10/2023 FINDINGS: position: Cephalic presentation, longitudinal lie Amniotic fluid: Subjectively normal Placenta: Anterior, placental edge 6.6 cm from the internal os. Grade 1. Again demonstrated is an area of hypoechogenicity along the edge of the placenta measuring 4.6 x 2.6 x 2.8 cm. Additional areas of hypoechogenicity within the placenta Heart rate: 151 beats minute Cervix: Closed, 4.4 cm US/US OB transvaginal IMPRESSION: Stable 4.6 cm avascular area of hypoechogenicity along the edge of the placenta, placental hernandez versus an area of hemorrhage Electronically authenticated by: JESSENIA LOPEZ Date: 09/26/2023 07:10
--- OUTSIDE RECORDS SUMMARY | 2023-09-24 08:00 | XMS_ITS | CCD ---
Author Name Unknown Address [address] [place] [address] Organization [facility] Care Team Providers Care Web Machine Tender Name Role Phone RUTH, DR NICHOLE Consulting Unavailable REQUEST, NONE LISTED Primary Care Unavaila ble RUTH, DR NICHOLE Attending Unavailable RUTH, DR NICHOLE Admitting Unavailable RUTH, DR NICHOLE Consulting Unavailable REQUEST, NONE LISTED Primary Care Unavaila ble RUTH, DR NICHOLE Attending Unavailable RUTH, DR NICHOLE Admitting Unavailable RUTH, DR NICHOLE Consulting Unavailable REQUEST, NONE LISTED Primary Care Unavaila ble RUTH, DR NICHOLE Attending Unavailable RUTH, DR NICHOLE Admitting Unavailable RUTH, DR NICHOLE Consulting Unavailable REQUEST, NONE LISTED Primary Care Unavaila ble RUTH, DR NICHOLE Attending Unavailable RUTH, DR NICHOLE Admitting Unavailable ZIEBER, DR ORQUIDEA Marie Consulting Unavailable SACRAMENTO, DR JESSENIA Cote Consulting Unavailable REQUEST, DR RAY LISTED Primary Care Unavaila ble RUTH, DR NICHOLE Attending Unavailable RUTH, DR NICHOLE Admitting Unavailable RUTH, DR NICHOLE Consulting Unavailable REQUEST, NONE LISTED Primary Care Unavaila ble RUTH, DR NICHOLE Attending Unavailable RUTH, DR NICHOLE Admitting Unavailable ZIEBER, DR ORQUIDEA Marie Consulting Unavailable RUSLAN, DR CHRISTIANSON Attending Unavailable RUSLAN, DR CHRISTIANSON Admitting Unavailable CARSON, DR ATWOOD Primary Care Unavailable RUSLAN, DR CHRISTIANSON Consulting Unavailable REQUEST, DR RAY LISTED Primary Care Unavaila ble RUTH, DR NICHOLE Attending Unavailable RUTH, DR NICHOLE Admitting Unavailable RUTH, DR NICHOLE Attending Unavailable RUTH, DR NICHOLE Admitting Unavailable RUTH, DR NICHOLE Consulting Unavailable REQUEST, DR NONE LISTED Primary Care Unavaila ble ZIEBER, DR ORQUIDEA Marie Consulting Unavailable RUTH, DR NICHOLE Procedure Practitioner Unavailab le AGUBOSIM, BRIANNA Consulting Unavailable AGUBOSIM, BRIANNA Procedure Practitioner Unavaila ble RUTH, DR NICHOLE Consulting Unavailable RUTH, DR NICHOLE Primary Care Unavailable RUTH, DR NICHOLE Attending Unavailable RUTH, DR NICHOLE Admitting Unavailable REQUEST, DR NONE LISTED Primary Care Unavaila ble KARASIK, DR HOWARD Consulting Unavailable KARASIK, DR HOWARD Attending Unavailable KARASIK, DR HOWARD Admitting Unavailable ZIEBER, DR ORQUIDEA Marie Consulting Unavailable REQUEST, DR NONE LISTED Primary Care Unavaila ble RUTH, DR NICHOLE Consulting Unavailable RUTH, DR NICHOLE Attending Unavailable RUTH, DR NICHOLE Admitting Unavailable RUTH, DR NICHOLE Consulting Unavailable HOY, DR ATWOOD Primary Care Unavailable RUTH, DR NICHOLE Attending Unavailable RUTH, DR NICHOLE Admitting Unavailable WEST, DR JESSENIA Cote Consulting Unavailable CARSON, DR ATWOOD Primary Care Unavailable RUTH, DR NICHOLE Attending Unavailable RUTH, DR NICHOLE Admitting Unavailable RUTH, DR NICHOLE Consulting Unavailable RUTH, DIONISIO Attending Unavailable RUTH, DIONISIO Attending Unavailable RUTH, DIONISIO Attending Unavailable Carson VALLE, Marcello Altamirano Primary Care Provider [phone] Medications Current Medications Medication Drug Class(es) Dates Sig (Normalized) Sig (Original) Magnesium (2 sources) Start: 08-23-2023 End: 08-22-2024 take 2 tablets by mouth in the morning magnesium 200 MG tablet Indications: Cluster headache, not intractable, unspecified chronicity pattern Take 2 tablets (400 mg) by mouth in the morning. 60 tablet 11 08/23/2023 08/22/2024 Active Vit w/Ee-Phgdsrath-[place] (PNV PO) (2 sources) take 1 tablet by mouth in the morning Vit w/Mo-Emcpwudlz-[place] (PNV PO) Take 1 tablet by mouth in the morning. 0 Active Problems Active Problems Problem Classification Problem Date Documented Date Episodic/Chronic Immunizations and screening for infectious disease (5 sources) Encounter for screening for human papillomavirus (HPV); Translations: [Contact with and (suspected) exposure to infections with a predominantly sexual mode of transmission] Onset: 07-04-2021 Episodic Menstrual disorders (5 sources) Irregular menstruation, unspecified; Translations: [IRREGULAR MENSTRUATION UNSPECIFIED] Onset: 07-02-2021 Chronic Other complications of (2 sources) Anomaly of placenta; Translations: [Malformation of placenta, unspecified, second trimester] 09-20-2023 Episodic Other and delivery including normal (7 sources) Encounter for routine follow-up; Translations: [Single live ] Onset: 02-08-2022 Episodic Other screening for suspected conditions (not mental [...] SPEC NONINFLAMMATORY D/O VAGINA] Onset: 10-21-2021 Episodic Residual codes; unclassified (1 source) 38 weeks gestation of ; Translations: [38 WEEKS GESTATION OF ] Onset: 02-11-2022 Episodic Residual codes; unclassified (1 source) 9 weeks gestation of ; Translations: [9 WEEKS GESTATION OF ] Onset: 07-16-2021 Episodic Unclassified (1 source) CONTACT W/AND (SUSP) EXPOS COVID-19; Translations: [CONTACT W/AND (SUSP) EXPOS COVID-19] Onset: 07-30-2021 Results Test Name Value Interpretation Reference Range Facility Urinalysis macro (dipstick) panel (U)on 09-20-2023 Bilirubin, UA Negative Negative - 4(70) +++ mg/dL [facility] Blood, UA Negative Negative - 50 Zeus/mcL [facility] Clarity, UA Clear [facility] Color, UA Yellow [facility] Glucose, UA Negative Negative - 2000(110) ++++ mg/dL [facility] Interpretation and review of laboratory results Abnormal [facility] Ketones, UA Negative Negative - 160(16) ++++ mg/dL [facility] Leukocytes, UA Trace Negative - 500+++ Jing/mcL [facility] Nitrite, UA Negative Negative - Positive [facility] pH, UA 7.0 5 - 9 [facility] Protein, UA Negative Negative - 2000(20) ++++ mg/dL [facility] Spec Grav, UA 1.010 1 - 1.03 [facility] Urobilinogen, UA 0.2 0.2 - 12 mg/dL [facility] PAP ACOG PANEL 2: 21 to 29on 06-02-2022 . . Normal [facility] Comment on above: Performed By: #### G LU1HR #### [facility] [address] [address] [address] Joanna Chen Age Gdln ACOG Testing - Normal [facility] Comment on above: Performed By: #### G LU1HR #### [facility] [address] [place], [place] [address] Dr. Joanna Chen DIAGNOSIS: Comment [facility] Comment on above: Result Comment: NEGA TIVE FOR INTRAEPITHELIAL LESION OR MALIGNANCY. Performed By: #### G LU1HR #### [facility] [address] [place] [address] Dr. Joanna Chen Methodology: Comment [facility] Comment on above: Result Comment: This liquid based ThinPrep(R) pap test was screened with the use of an image guided system. Performed By: #### G LU1HR #### [facility] [address] [place] [address] Dr. Joanna Chen Note: Comment Normal [facility] Comment on above: Result Comment: The Pap smear is a screening test designed to aid in the detection of premalignant and malignant conditions of the uterine cervix. It is not a diagnostic procedure and should not be used as the sole means of detecting cervical cancer. Both false-positive and false-negative reports do occur. . Performed By: #### G LU1HR #### [facility] [address] [place] [address] Dr. Joanna Chen Performed by: Comment Normal [facility] Comment on above: Result Comment: Serena Bassett, Counter Former (ASCP) Performed By: #### G LU1HR #### [facility] [address] [place] [address] Dr. Joanna Chen Reflex Criteria: Comment Normal [facility] Comment on above: Result Comment: The HPV DNA reflex criteria were not met with this specimen result therefore, no HPV testing was performed. . Performed By: #### G LU1HR #### [facility] [address] [place] [address] Dr. Joanna Chen Specimen adequacy: Comment Normal [facility] Comment on above: Result Comment: Sati sfactory for evaluation. Endocervical and/or squamous metaplastic cells (endocervical component) are present. Performed By: #### G LU1HR #### [facility] [address] [place] [address] Dr. Joanna Chen CBC AUTO DIFFon 02-02-2022 BASO # 0.1 103/ul Normal 0.0-0.1 [facility] Comment on above: Performed By: #### H BSANS #### [facility] [address] [address] [address] Joanna Chen Basophils/100 WBC (Bld) 0.3 % Normal 0.2-2.0 [facility] Comment on above: Performed By: #### H BSANS #### [facility] [address] [place] [address] Dr. Joanna Chen EO # 0.1 103/ul Normal 0.0-0.7 [facility] Comment on above: Performed By: #### H BSANS #### [facility] [address] [place] [address] Dr. Joanna Chen Eosinophils/100 WBC (Bld) 0.4 % Critically low 0.9-7.0 [facility] Comment on above: Performed By: #### H BSANS #### [facility] [address] [place] [address] Dr. Joanna Chen Erythrocyte distribution width (RBC) [Ratio] 13.8 % Normal 11.0-15.0 [facility] Comment on above: Performed By: #### H BSANS #### [facility] [address] [place] [address] Dr. Joanna Chen Hematocrit (Bld) [Volume fraction] 31.7 % Critically low 36.0-48.0 [facility] Comment on above: Performed By: #### H BSANS #### [facility] [address] [place] [address] Dr. Joanna Chen Hemoglobin (Bld) [Mass/Vol] 10.0 g/dL Critically low 12.0-16.0 [facility] Comment on above: Performed By: #### H BSANS #### [facility] [address] [place] [address] Dr. Joanna Chen IG # 0.15 10e3/ul Critically high 0.00-0.03 [facility] Comment on above: Performed By: #### H BSANS #### [facility] [address] [place] [address] Dr. Joanna Chen IG % 0.9 % Critically high 0.0-0.5 [facility] Comment on above: Performed By: #### H BSANS #### [facility] [address] [address] [address] Joanna Chen LYMPH # 1.7 103/ul Normal 1.2-3.8 [facility] Comment on above: Performed By: #### H BSANS #### [facility] [address] [address] [address] Joanna Chen Lymphocytes/100 WBC (Bld) 10.5 % Critically low 20.5-60.0 [facility] Comment on above: Performed By: #### H BSANS #### [facility] [address] [address] [address] Joanna Chen MANUAL DIFF REQ NO Normal [facility] Comment on above: Performed By: #### H BSANS #### [facility] [address] [place] [address] Dr. Joanna Chen MCH (RBC) [Entitic mass] 29.2 pg Normal 26.7-34.0 [facility] Comment on above: Performed By: #### H BSANS #### [facility] [address] [address] [address] Joanna Chen MCHC (RBC) [Mass/Vol] 31.5 g/dL Normal 29.9-35.2 [facility] Comment on above: Performed By: #### H BSANS #### [facility] [address] [place] [address] Dr. Joanna Chen MCV (RBC) [Entitic vol] 92.4 fL Normal 81.0-99.0 [facility] Comment on above: Performed By: #### H BSANS #### [facility] [address] [address] [address] Joanna Chen MONO # 1.2 103/ul Critically high 0.3-0.8 [facility] Comment on above: Performed By: #### H BSANS #### [facility] [address] [address] [address] Joanna Chen Monocytes/100 WBC (Bld) 7.2 % Normal 1.7-12.0 [facility] Comment on above: Performed By: #### H BSANS #### [facility] [address] [address] [address] Joanna Chen NEUT # 13.0 103/ul Critically high 1.4-6.5 [facility] Comment on above: Performed By: #### H BSANS #### [facility] [address] [address] [address] Joanna Chen Neutrophils/100 WBC (Bld) 80.7 % Critically high 43.0-75.0 [facility] Comment on above: Performed By: #### H BSANS #### [facility] [address] [address] [address] Joanna Chen Platelet mean volume (Bld) [Entitic vol] 10.0 fL Normal 9.5-13.5 [facility] Comment on above: Performed By: #### H BSANS #### [facility] [address] [place] [address] Dr. Joanna Chen PLT 181 103/ul Normal 150-450 [facility] Comment on above: Performed By: #### H BSANS #### [facility] [address] [place] [address] Dr. Joanna Chen RBC 3.43 106/ul Critically low 4.20-5.40 [facility] Comment on above: Performed By: #### H BSANS #### [facility] [address] [place] [address] Dr. Joanna Chen WBC 16.1 103/ul Critically high 4.0-11.0 [facility] Comment on above: Performed By: #### H BSANS #### [facility] [address] [place] [address] Dr. Joanna Chen CBC AUTO DIFFon 02-01-2022 BASO # 0.0 103/ul Normal 0.0-0.1 [facility] Comment on above: Performed By: #### G LU1HR #### [facility] [address] [place] [address] Dr. Joanna Chen Basophils/100 WBC (Bld) 0.2 % Normal 0.2-2.0 [facility] Comment on above: Performed By: #### G LU1HR #### [facility] [address] [place] [address] Dr. Joanna Chen EO # 0.0 103/ul Normal 0.0-0.7 [facility] Comment on above: Performed By: #### G LU1HR #### [facility] [address] [place] [address] Dr. Joanna Chen Eosinophils/100 WBC (Bld) 0.2 % Critically low 0.9-7.0 [facility] Comment on above: Performed By: #### G LU1HR #### [facility] [address] [place] [address] Dr. Joanna Chen Erythrocyte distribution width (RBC) [Ratio] 13.8 % Normal 11.0-15.0 [facility] Comment on above: Performed By: #### G LU1HR #### [facility] [address] [place] [address] Dr. Joanna Chen Hematocrit (Bld) [Volume fraction] 36.2 % Normal 36.0-48.0 [facility] Comment on above: Performed By: #### G LU1HR #### [facility] [address] [place] [address] Dr. Joanna Chen Hemoglobin (Bld) [Mass/Vol] 11.8 g/dL Critically low 12.0-16.0 [facility] Comment on above: Performed By: #### G LU1HR #### [facility] [address] [place] [address] Dr. Joanna Chen IG # 0.14 10e3/ul Critically high 0.00-0.03 [facility] Comment on above: Performed By: #### G LU1HR #### [facility] [address] [place] [address] Dr. Joanna Chen IG % 1.0 % Critically high 0.0-0.5 [facility] Comment on above: Performed By: #### G LU1HR #### [facility] [address] [place] [address] Dr. Joanna Chen LYMPH # 2.0 103/ul Normal 1.2-3.8 [facility] Comment on above: Performed By: #### G LU1HR #### [facility] [address] [place] [address] Dr. Joanna Chen Lymphocytes/100 WBC (Bld) 14.5 % Critically low 20.5-60.0 [facility] Comment on above: Performed By: #### G LU1HR #### [facility] [address] [place] [address] Dr. Joanna Chen MANUAL DIFF REQ NO Normal [facility] Comment on above: Performed By: #### G LU1HR #### [facility] [address] [place] [address] Dr. Joanna Chen MCH (RBC) [Entitic mass] 29.2 pg Normal 26.7-34.0 [facility] Comment on above: Performed By: #### G LU1HR #### [facility] [address] [place] [address] Dr. Joanna Chen MCHC (RBC) [Mass/Vol] 32.6 g/dL Normal 29.9-35.2 [facility] Comment on above: Performed By: #### G LU1HR #### [facility] [address] [place] [address] Dr. Joanna Chen MCV (RBC) [Entitic vol] 89.6 fL Normal 81.0-99.0 [facility] Comment on above: Performed By: #### G LU1HR #### [facility] [address] [place] [address] Dr. Joanna Chen MONO # 1.0 103/ul Critically high 0.3-0.8 [facility] Comment on above: Performed By: #### G LU1HR #### [facility] [address] [place] [address] Dr. Joanna Chen Monocytes/100 WBC (Bld) 7.2 % Normal 1.7-12.0 [facility] Comment on above: Performed By: #### G LU1HR #### [facility] [address] [place] [address] Dr. Joanna Chen NEUT # 10.6 103/ul Critically high 1.4-6.5 [facility] Comment on above: Performed By: #### G LU1HR #### [facility] [address] [place] [address] Dr. Joanna Chen Neutrophils/100 WBC (Bld) 76.9 % Critically high 43.0-75.0 [facility] Comment on above: Performed By: #### G LU1HR #### [facility] [address] [place] [address] Dr. Joanna Chen Platelet mean volume (Bld) [Entitic vol] 9.7 fL Normal 9.5-13.5 [facility] Comment on above: Performed By: #### G LU1HR #### [facility] [address] [place] [address] Dr. Joanna Chen PLT 203 103/ul Normal 150-450 [facility] Comment on above: Performed By: #### G LU1HR #### [facility] [address] [place] [address] Dr. Joanna Chen RBC 4.04 106/ul Critically low 4.20-5.40 [facility] Comment on above: Performed By: #### G LU1HR #### [facility] [address] [place] [address] Dr. Joanna Chen WBC 13.8 103/ul Critically high 4.0-11.0 [facility] Comment on above: Performed By: #### G LU1HR #### [facility] [address] [place] [address] Dr. Joanna Chen Covid-19 PCR ([facility])on 01-14 SARS-CoV-2 (COVID-19) RNA MANINDER+probe Ql (Unsp spec) Not detected Normal NOT DETECTED [facility] Comment on above: Result Comment: When [...] for this test is supported by the Print Color Operator of Health and Human Service's declaration that [...] used). Performed By: #### G LU1HR #### [facility] [address] [place] [address] Dr. Jaonna Chen DRUG SCREEN RAPID (URINE)on 02-01-2022 AMP Negative Normal NEGATIVE [facility] Comment on above: Performed By: #### H BSANS #### [facility] [address] [place] [address] Dr. Joanna Chen BAR Negative Normal NEGATIVE [facility] Comment on above: Performed By: #### H BSANS #### [facility] [address] [place] [address] Dr. Joanna Chen BUP Negative Normal NEGATIVE [facility] Comment on above: Performed By: #### H BSANS #### [facility] [address] [place] [address] Dr. Joanna Chen BZO Negative Normal NEGATIVE [facility] Comment on above: Performed By: #### H BSANS #### [facility] [address] [place] [address] Dr. Joanna Chen HALLE Negative Normal NEGATIVE [facility] Comment on above: Performed By: #### H BSANS #### [facility] [address] [place] [address] Dr. Joanna Chen CUT-OFFS SEE BELOW Normal [facility] Comment on above: Result Comment: AMP [...] ng/mL Performed By: #### H BSANS #### [facility] [address] [place] [address] Dr. Joanna Chen DRUG CUT HEADER DRUG CLASS TEST SYST EM CUT-OFF CONCENTRATIONS ARE FOLLOWS: Normal [facility] Comment on above: Performed By: #### H BSANS #### [facility] [address] [place] [address] Dr. Joanna Chen mAMP Negative Normal NEGATIVE [facility] Comment on above: Performed By: #### H BSANS #### [facility] [address] [place] [address] Dr. Joanna Chen MTD Negative Normal NEGATIVE [facility] Comment on above: Performed By: #### H BSANS #### [facility] [address] [place] [address] Dr. Joanna Chen OPI Negative Normal NEGATIVE [facility] Comment on above: Performed By: #### H BSANS #### [facility] [address] [place] [address] Dr. Joanna Chen OXY Negative Normal NEGATIVE [facility] Comment on above: Performed By: #### H BSANS #### [facility] [address] [place] [address] Dr. Joanna Chen PCP Negative Normal NEGATIVE [facility] Comment on above: Performed By: #### H BSANS #### [facility] [address] [place] [address] Dr. Joanna Chen PPX Negative Normal NEGATIVE [facility] Comment on above: Performed By: #### H BSANS #### [facility] [address] [place] [address] Dr. Joanna Chen TCA Negative Normal NEGATIVE [facility] Comment on above: Performed By: #### H BSANS #### [facility] [address] [place] [address] Dr. Joanna Chen THC Negative Normal NEGATIVE [facility] Comment on above: Performed By: #### H BSANS #### [facility] [address] [place] [address] Dr. Joanna Chen TYPE AND SCREENon 02-01-2022 TYPE AND SCREEN Negative Normal [facility] Comment on above: Performed By: #### C MP, PREGQNT #### [facility] [address] [place] [address] Dr. Joanna Chen UA (CLEAN/CATCH) INSIGHT LEADER/MICRO I F IND.on 02-01-2022 Bilirubin Ql (U) Negative Normal NEGATIVE [facility] Comment on above: Performed By: #### U ACSIND, UMICRO #### [facility] [address] [place] [address] Dr. Joanna Chen Clarity (U) CLEAR Normal CLEAR [facility] Comment on above: Performed By: #### U ACSIND, UMICRO #### [facility] [address] [place] [address] Dr. Joanna Chen Color (U) LT. YELLOW Normal YELLOW [facility] Comment on above: Performed By: #### U ACSIND, UMICRO #### [facility] [address] [place] [address] Dr. Joanna Chen Glucose Ql (U) Negative Normal NEGATIVE [facility] Comment on above: Performed By: #### U ACSIND, UMICRO #### [facility] [address] [place] [address] Dr. Joanna Chen Hemoglobin Ql (U) Negative Normal NEGATIVE [facility] Comment on above: Performed By: #### U ACSIND, UMICRO #### [facility] [address] [place] [address] Dr. Joanna Chen Ketones Ql (U) Negative Normal NEGATIVE [facility] Comment on above: Performed By: #### U ACSIND, UMICRO #### [facility] [address] [place] [address] Dr. Joanna Chen LEUKOCYTES TRACE Abnormal NEGATIVE [facility] Comment on above: Performed By: #### U ACSIND, UMICRO #### [facility] [address] [address] [address] Joanna Chen Nitrite Ql (U) Negative Normal NEGATIVE [facility] Comment on above: Performed By: #### U BANDAR UMICRO #### [facility] [address] [address] [address] Joanna Chen pH (U) 7.0 [pH] Normal 5-9 [facility] Comment on above: Performed By: #### U BANDAR UMICRO #### [facility] [address] [address] [address] Joanna Chen SPEC GRAVITY 1.010 Normal 1.005-<=1.0 25 [facility] Comment on above: Performed By: #### U BANDAR ICRO #### [facility] [address] [place] [id number] Dr. Joanna Chen UA PROTEIN Negative Normal NEGATIVE/ TRACE [facility] Comment on above: Performed By: #### U BANDAR ICRO #### [facility] [address] [place] [address] Dr. Joanna Chen UR MICRO IND INDICATED Normal [facility] Comment on above: Performed By: #### U BANDAR ICRO #### [facility] [address] [place] [address] Dr. Joanna Chen Urobilinogen Qn (U) 0.2 {Frank'U}/dL Normal 0.2 - 1.0 [facility] Comment on above: Performed By: #### U BANDAR UMICRO #### [facility] [address] [place] [address] Dr. Joanna hCen URINE MICROSCOPIC ONLYon BACTERIA NONE SEEN Normal NONE SEEN [facility] Comment on above: Performed By: #### U BANDAR UMICRO #### [facility] [address] [place] [address] Dr. Joanna Chen Bacteria identified Cx Nom (U) NOT INDICATED Normal [facility] Comment on above: Performed By: #### U BANDAR UMICRO #### [facility] [address] [place] [address] Dr. Joanna Chen CAST NONE SEEN Normal NONE SEEN [facility] Comment on above: Performed By: #### U ACSPRIETO, UMICRO #### [facility] [address] [address] [address] Joanna Chen Crystals LM Nom (Urine sed) NONE SEEN Normal NONE SEEN [facility] Comment on above: Performed By: #### U ACSPRIETO, UMICRO #### [facility] [address] [address] [address] Joanna Chen Epithelial cells LM Ql (Urine sed) FEW Abnormal NONE SEEN /RARE [facility] Comment on above: Performed By: #### U ACSPRIETO, UMICRO #### [facility] [address] [place] [address] Dr. Joanna Chen MUCOUS NONE SEEN Normal NONE SEEN [facility] Comment on above: Performed By: #### U ACSPRIETO, UMICRO #### [facility] [address] [place] [address] Dr. Joanna Chen RBC NONE SEEN Abnormal 0-2 [facility] Comment on above: Performed By: #### U ACSPRIETO, UMICRO #### [facility] [address] [place] [address] Dr. Joanna Chen WBC 0-2 Abnormal NONE SEEN [facility] Comment on above: Performed By: #### U ACSPRIETO, UMICRO #### [facility] [address] [place] [address] Dr. Joanna Chen US PREG BIOPHY W [...] by: ORQUIDEA RING Date: 2022-02-01 12:34 Normal [facility] GROUP B STREP CULTUREon S. agalactiae Ag Ql (Unsp spec) Culture Observations: NEGATIVE FOR GROUP B STREPTOCOCCUS. Normal [facility] Comment on above: Performed By: #### C MP, PREGQNT #### [facility] [address] [address] [address] Joanna Chen US PREG REEVAL ABNon [...] ORQUIDEA RING Date: 2021-12-21 16:20 Normal [facility] GLUCOSE - 1HRon 10-30-2021 Glucose [Mass/Vol] 82 mg/dL Normal 74-106 [facility] Comment on above: Performed By: #### G LU1HR #### [facility] [address] [address] [address] Joanna Chen HEMOGRAM AND PLATELon 2021 Hematocrit (Bld) [Volume fraction] 35.0 % Critically low 36.0-48.0 [facility] Comment on above: Performed By: #### H BSANS #### [facility] [address] [address] [address] Joanna Chen Hemoglobin (Bld) [Mass/Vol] 11.4 g/dL Critically low 12.0-16.0 [facility] Comment on above: Performed By: #### H BSANS #### [facility] [address] [address] [address] Joanna Chen MCH (RBC) [Entitic mass] 30.2 pg Normal 26.7-34.0 [facility] Comment on above: Performed By: #### H BSANS #### [facility] [address] [place] [address] Dr. Joanna Chen MCHC (RBC) [Mass/Vol] 32.6 g/dL Normal 29.9-35.2 [facility] Comment on above: Performed By: #### H BSANS #### [facility] [address] [place] [address] Dr. Joanna Chen MCV (RBC) [Entitic vol] 92.6 fL Normal 81.0-99.0 [facility] Comment on above: Performed By: #### H BSANS #### [facility] [address] [place] [address] Dr. Joanna Chen PLT 267 103/ul Normal 150-450 [facility] Comment on above: Performed By: #### H BSANS #### [facility] [address] [place] [address] Dr. Joanna Chen RBC 3.78 106/ul Critically low 4.20-5.40 [facility] Comment on above: Performed By: #### H BSANS #### [facility] [address] [place] [address] Dr. Joanna Chen WBC 12.0 103/ul Critically high 4.0-11.0 [facility] Comment on above: Performed By: #### H BSANS #### [facility] [address] [place] [address] Dr. Joanna Chen CHLAMYDIA/GONOCOCCUS MANINDER (SW AB/URINE/PAPon 10-21-2021 Chlamydia trachomatis, MANINDER Negative Normal Negative [facility] Comment on above: Performed By: #### G LU1HR #### [facility] [address] [place] [address] Dr. Joanna Chen Neisseria gonorrhoeae, MANINDER Negative Normal Negative [facility] Comment on above: Performed By: #### G LU1HR #### [facility] [address] [place] [address] Dr. Joanna Chen VAGINITIS/VAGINOSIS DNA PROB Cheng 10-20-2021 Earnestine species Negative Normal Negative [facility] Comment on above: Performed By: #### H BSANS #### [facility] [address] [address] [address] Joanna Chen Gardnerella vaginalis Positive Abnormal Negative [facility] Comment on above: Performed By: #### H BSANS #### [facility] [address] [address] [address] Joanna Chen Trichomonas vaginalis Negative Normal Negative [facility] Comment on above: Performed By: #### H BSANS #### [facility] [address] [address] [address] Joanna Chen US PREG INCOMPLETE ANATOMYon 10-19-2021 US PREG INCOMPLETE ANATOMY EXAMINATION: US PREG INCOMPLETE ANATOMY HISTORY: screening COMPARISON: 10/01/2021 FINDINGS: presentation: Cephalic Heart rate: 141 bpm Normal anatomy: Right ventricular outflow track, left ventricular outflow tract Other: Single cardiac focus again noted IMPRESSION: Stable single cardiac focus, nonspecific Electronically authenticated by: JESSENIA LOPEZ Date: 2021-10-19 18:33 Normal [facility] US PREG ANATOMY SINGLEon US PREG [...] (44% by ultrasound, 13% by expected); FL/AC: [id number] FL/BPD: [id number] HC/AC: [id number] GESTATIONAL AGE: Age by EDC: 20 weeks, [...] ORQUIDEA RING Date: 2021-10-01 17:16 Normal [facility] Covid-19 PCR ([facility])on 07-15 SARS-CoV-2 (COVID-19) RNA MANINDER+probe Ql (Unsp spec) Not detected Normal NOT DETECTED [facility] Comment on above: Result Comment: This test is not yet approved or cleared by the [place] FDA. When there are no FDA-approved or cleared tests available, and other criteria are met, FDA can make tests available under an emergency access mechanism called an Emergency Use Authorization (EUA). The EUA for this test is supported by the [place] of Health and Human Service's (HHS's) declaration [...] consistent with SARS-CoV-2. Performed By: #### G LU1HR #### [facility] [address] [place] [address] Dr. Joanna PLASCENCIA TEST PT SEND OUTo n 07-27-2021 SENT TO REF LAB 07/27/2021 Normal [facility] Comment on above: Performed By: #### N TEMO #### [facility] [address] [place] [address] Dr. Joanna Chen CBC AUTO DIFFon 07-15-2021 BASO # 0.0 103/ul Normal 0.0-0.1 [facility] Comment on above: Performed By: #### G LU1HR #### [facility] [address] [place] [address] Dr. Joanna Chen Basophils/100 WBC (Bld) 0.5 % Normal 0.2-2.0 [facility] Comment on above: Performed By: #### G LU1HR #### [facility] [address] [place] [address] Dr. Joanna Chen EO # 0.0 103/ul Normal 0.0-0.7 [facility] Comment on above: Performed By: #### G LU1HR #### [facility] [address] [place] [address] Dr. Joanna Chen Eosinophils/100 WBC (Bld) 0.5 % Critically low 0.9-7.0 [facility] Comment on above: Performed By: #### G LU1HR #### [facility] [address] [place] [address] Dr. Joanna Chen Erythrocyte distribution width (RBC) [Ratio] 13.3 % Normal 11.0-15.0 [facility] Comment on above: Performed By: #### G LU1HR #### [facility] [address] [place] [address] Dr. Joanna Chen Hematocrit (Bld) [Volume fraction] 39.1 % Normal 36.0-48.0 [facility] Comment on above: Performed By: #### G LU1HR #### [facility] [address] [place] [address] Dr. Joanna Chen Hemoglobin (Bld) [Mass/Vol] 13.0 g/dL Normal 12.0-16.0 [facility] Comment on above: Performed By: #### G LU1HR #### [facility] [address] [place] [address] Dr. Joanna Chen IG # 0.04 10e3/ul Critically high 0.00-0.03 [facility] Comment on above: Performed By: #### G LU1HR #### [facility] [address] [place] [address] Dr. Joanna Chen IG % 0.5 % Normal 0.0-0.5 [facility] Comment on above: Performed By: #### G LU1HR #### [facility] [address] [place] [address] Dr. Joanna Chen LYMPH # 1.8 103/ul Normal 1.2-3.8 [facility] Comment on above: Performed By: #### G LU1HR #### [facility] [address] [place] [address] Dr. Joanna Chen Lymphocytes/100 WBC (Bld) 20.9 % Normal 20.5-60.0 [facility] Comment on above: Performed By: #### G LU1HR #### [facility] [address] [place] [address] Dr. Joanna Chen MANUAL DIFF REQ NO Normal [facility] Comment on above: Performed By: #### G LU1HR #### [facility] [address] [place] [address] Dr. Joanna Chen MCH (RBC) [Entitic mass] 29.5 pg Normal 26.7-34.0 [facility] Comment on above: Performed By: #### G LU1HR #### [facility] [address] [place] [address] Dr. Joanna Chen MCHC (RBC) [Mass/Vol] 33.2 g/dL Normal 29.9-35.2 [facility] Comment on above: Performed By: #### G LU1HR #### [facility] [address] [place] [address] Dr. Joanna Chen MCV (RBC) [Entitic vol] 88.7 fL Normal 81.0-99.0 [facility] Comment on above: Performed By: #### G LU1HR #### [facility] [address] [place] [address] Dr. Joanna Chen MONO # 0.6 103/ul Normal 0.3-0.8 [facility] Comment on above: Performed By: #### G LU1HR #### [facility] [address] [place] [address] Dr. Joanna Chen Monocytes/100 WBC (Bld) 7.2 % Normal 1.7-12.0 [facility] Comment on above: Performed By: #### G LU1HR #### [facility] [address] [place] [address] Dr. Joanna Chen NEUT # 6.1 103/ul Normal 1.4-6.5 [facility] Comment on above: Performed By: #### G LU1HR #### [facility] [address] [place] [address] Dr. Joanna Chen Neutrophils/100 WBC (Bld) 70.4 % Normal 43.0-75.0 [facility] Comment on above: Performed By: #### G LU1HR #### [facility] [address] [place] [address] Dr. Joanna Chen Platelet mean volume (Bld) [Entitic vol] 9.3 fL Critically low 9.5-13.5 [facility] Comment on above: Performed By: #### G LU1HR #### [facility] [address] [place] [address] Dr. Joanna Chen PLT 241 103/ul Normal 150-450 [facility] Comment on above: Performed By: #### G LU1HR #### [facility] [address] [place] [address] Dr. Joanna Chne RBC 4.41 106/ul Normal 4.20-5.40 [facility] Comment on above: Performed By: #### G LU1HR #### [facility] [address] [place] [address] Dr. Joanna Chen WBC 8.7 103/ul Normal 4.0-11.0 [facility] Comment on above: Performed By: #### G LU1HR #### [facility] [address] [place] [address] Dr. Joanna Chen PREG QUANT HCGon 07-15-2021 HCG QUANT 28878 mIU/mL Normal [facility] Comment on above: Performed By: #### C DARRYN, PREGQNT #### [facility] [address] [place] [address] Dr. Joanna Chen HCG RANGE SEE BELOW Normal [facility] Comment on above: Result Comment: 5-50 0-1 WEEK 40-300 1-2 WEEKS 100-1,000 2-3 WEEKS 500-6,000 3-4 WEEKS 5,000-200,000 1-2 MONTHS 10,000-100,000 2-3 MONTHS 3,000-50,000 2ND TRIMESTER 1,000-50,000 3RD TRIMESTER Performed By: #### C DARRYN, PREGQNT #### [facility] [address] [place] [address] Dr. Joanna Chen PROF 14(COMP METB)on 021 Albumin [Mass/Vol] 3.6 g/dL Normal 3.5-5.0 [facility] Comment on above: Performed By: #### C DARRYN, PREGQNT #### [facility] [address] [place] [address] Dr. Joanna Chen Albumin/Globulin [Mass ratio] 1.0 {ratio} [facility] Comment on above: Performed By: #### C DARRYN, PREGQNT #### [facility] [address] [place] [address] Dr. Joanna Chen ALP [Catalytic activity/Vol] 43 U/L Normal 38-126 [facility] Comment on above: Performed By: #### C DARRYN, PREGQNT #### [facility] [address] [place] [address] Dr. Joanna Chen ALT [Catalytic activity/Vol] 21 U/L Normal 9-52 [facility] Comment on above: Performed By: #### C MP, PREGQNT #### [facility] [address] [place] [address] Dr. Joanna Chen Anion gap [Moles/Vol] 11.5 mmol/L Normal [facility] Comment on above: Performed By: #### C MP, PREGQNT #### [facility] [address] [place] [address] Dr. Joanna Chen AST [Catalytic activity/Vol] 18 U/L Normal 14-36 [facility] Comment on above: Performed By: #### C MP, PREGQNT #### [facility] [address] [place] [address] Dr. Joanna Chen Bilirubin [Mass/Vol] 0.4 mg/dL Normal 0.2-1.3 [facility] Comment on above: Performed By: #### C MP, PREGQNT #### [facility] [address] [place] [address] Dr. Joanna Chen Calcium [Mass/Vol] 9.3 mg/dL Normal 8.4-10.2 [facility] Comment on above: Performed By: #### C MP, PREGQNT #### [facility] [address] [place] [address] Dr. Joanna Chen Chloride [Moles/Vol] 102 mmol/L Normal 98-107 [facility] Comment on above: Performed By: #### C MP, PREGQNT #### [facility] [address] [place] [address] Dr. Joanna Chen CO2 [Moles/Vol] 25.5 mmol/L Normal 22.0-30.0 [facility] Comment on above: Performed By: #### C MP, PREGQNT #### [facility] [address] [place] [address] Dr. Joanna Chen Creatinine [Mass/Vol] 0.54 mg/dL Normal 0.52-1.04 [facility] Comment on above: Performed By: #### C MP, PREGQNT #### [facility] [address] [place] [address] Dr. Joanna Chen EGFR-AF MONGOLIAN >60 Normal >=60 [facility] Comment on above: Performed By: #### C MP, PREGQNT #### [facility] [address] [place] [address] Dr. Joanna Chen EGFR-NON AF MONGOLIAN >60 Normal >=60 [facility] Comment on above: Performed By: #### C MP, PREGQNT #### [facility] [address] [address] [address] Joanna Chen Globulin (S) [Mass/Vol] 3.7 g/dL Normal [facility] Comment on above: Performed By: #### C MP, PREGQNT #### [facility] [address] [address] [address] Joanna Chen Glucose [Mass/Vol] 90 mg/dL Normal 74-106 [facility] Comment on above: Performed By: #### C MP, PREGQNT #### [facility] [address] [address] [address] Joanna Chen Potassium [Moles/Vol] 4.0 mmol/L Normal 3.4-5.0 [facility] Comment on above: Performed By: #### C MP, PREGQNT #### [facility] [address] [place] [address] Dr. Joanna Chen Protein [Mass/Vol] 7.3 g/dL Normal 6.1-8.2 [facility] Comment on above: Performed By: #### C MP, PREGQNT #### [facility] [address] [address] [address] Joanna Chen Sodium [Moles/Vol] 135 mmol/L Critically low 137-145 [facility] Comment on above: Performed By: #### C MP, PREGQNT #### [facility] [address] [address] [address] Joanna Chen Urea nitrogen [Mass/Vol] 8.0 mg/dL Normal 7.0-17.0 [facility] Comment on above: Performed By: #### C MP, PREGQNT #### [facility] [address] [address] [address] Joanna Chen Urea nitrogen/Creatinin e [Mass ratio] 14.8 mg/mg Normal [facility] Comment on above: Performed By: #### C MP, PREGQNT #### [facility] [address] [address] [address] Joanna Chen US PREG TVon 07-15-2021 [...] ORQUIDEA RING Date: 2021-07-15 10:52 Normal [facility] RPR QUANTon 07-06-2021 Rapid Plasma Reagin, Quant Non-Reactive Normal NonRea<1:1 [facility] Comment on above: Performed By: #### G LU1HR #### [facility] [address] [address] [address] Jonana Chen RUBELLA AB IGGon 07-06-2021 Rubella Antibodies, IgG 2.68 index Normal Immune >0.99 [facility] Comment on above: Result Comment: Non- immune <0.90 Equivocal 0.90 - 0.99 Immune >0.99 Performed By: #### C MP, PREGQNT #### [facility] [address] [address] [address] Joanna Chen HEP B SURFACE ANTIGEN SCREEN on 07-05-2021 HBsAg Screen Negative Normal Negative [facility] Comment on above: Performed By: #### H BSANS #### [facility] [address] [address] [address] Joanna Chen HEPATITIS C VIRUS AB W/ REFL EX QUANTon 07-05-2021 HCV AB <0.1 Normal 0.0-0.9 [facility] Comment on above: Performed By: #### H BSANS #### [facility] [address] [address] [address] Joanna Chen Interpretation: Comment Normal [facility] Comment on above: Result Comment: Nega tive Not infected with HCV, unless recent infection is suspected or other evidence exists to indicate HCV infection. Performed By: #### H BSANS #### [facility] [address] [place] [address] Dr. Joanna Chen HIV 1 AND 2 WITH REFLEXon HIV Screen 4th Generation wRfx Non-Reactive Normal Non Reactive [facility] Comment on above: Performed By: #### H IV12 #### [facility] [address] [place] [address] Dr. Joanna Chen CBC AUTO DIFFon 07-04-2021 BASO # 0.1 103/ul Normal 0.0-0.1 [facility] Comment on above: Performed By: #### G LU1HR #### [facility] [address] [place] [address] Dr. Joanna Chen Basophils/100 WBC (Bld) 0.5 % Normal 0.2-2.0 [facility] Comment on above: Performed By: #### G LU1HR #### [facility] [address] [place] [address] Dr. Joanna Chen EO # 0.1 103/ul Normal 0.0-0.7 [facility] Comment on above: Performed By: #### G LU1HR #### [facility] [address] [place] [address] Dr. Joanna Chen Eosinophils/100 WBC (Bld) 0.5 % Critically low 0.9-7.0 [facility] Comment on above: Performed By: #### G LU1HR #### [facility] [address] [place] [address] Dr. Jonana Chen Erythrocyte distribution width (RBC) [Ratio] 13.0 % Normal 11.0-15.0 [facility] Comment on above: Performed By: #### G LU1HR #### [facility] [address] [place] [address] Dr. Joanna Chen Hematocrit (Bld) [Volume fraction] 39.3 % Normal 36.0-48.0 [facility] Comment on above: Performed By: #### G LU1HR #### [facility] [address] [place] [address] Dr. Joanna Chen Hemoglobin (Bld) [Mass/Vol] 12.8 g/dL Normal 12.0-16.0 [facility] Comment on above: Performed By: #### G LU1HR #### [facility] [address] [place] [address] Dr. Joanna Chen IG # 0.04 10e3/ul Critically high 0.00-0.03 [facility] Comment on above: Performed By: #### G LU1HR #### [facility] [address] [place] [address] Dr. Joanna Chen IG % 0.4 % Normal 0.0-0.5 [facility] Comment on above: Performed By: #### G LU1HR #### [facility] [address] [place] [address] Dr. Joanna Chen LYMPH # 2.6 103/ul Normal 1.2-3.8 [facility] Comment on above: Performed By: #### G LU1HR #### [facility] [address] [place] [address] Dr. Joanna Chen Lymphocytes/100 WBC (Bld) 28.1 % Normal 20.5-60.0 [facility] Comment on above: Performed By: #### G LU1HR #### [facility] [address] [place] [address] Dr. Joanna Chen MANUAL DIFF REQ NO Normal [facility] Comment on above: Performed By: #### G LU1HR #### [facility] [address] [place] [address] Dr. Joanna Chen MCH (RBC) [Entitic mass] 29.2 pg Normal 26.7-34.0 [facility] Comment on above: Performed By: #### G LU1HR #### [facility] [address] [place] [address] Dr. Joanna Chen MCHC (RBC) [Mass/Vol] 32.6 g/dL Normal 29.9-35.2 [facility] Comment on above: Performed By: #### G LU1HR #### [facility] [address] [place] [address] Dr. Joanna Chen MCV (RBC) [Entitic vol] 89.7 fL Normal 81.0-99.0 [facility] Comment on above: Performed By: #### G LU1HR #### [facility] [address] [place] [address] Dr. Joanna Chen MONO # 0.8 103/ul Normal 0.3-0.8 [facility] Comment on above: Performed By: #### G LU1HR #### [facility] [address] [place] [address] Dr. Joanna Chen Monocytes/100 WBC (Bld) 8.4 % Normal 1.7-12.0 [facility] Comment on above: Performed By: #### G LU1HR #### [facility] [address] [place] [address] Dr. Joanna Chen NEUT # 5.7 103/ul Normal 1.4-6.5 [facility] Comment on above: Performed By: #### G LU1HR #### [facility] [address] [place] [address] Dr. Joanna Chen Neutrophils/100 WBC (Bld) 62.1 % Normal 43.0-75.0 [facility] Comment on above: Performed By: #### G LU1HR #### [facility] [address] [place] [address] Dr. Joanna Chen Platelet mean volume (Bld) [Entitic vol] 9.6 fL Normal 9.5-13.5 [facility] Comment on above: Performed By: #### G LU1HR #### [facility] [address] [place] [address] Dr. Joanna Chen PLT 277 103/ul Normal 150-450 [facility] Comment on above: Performed By: #### G LU1HR #### [facility] [address] [place] [address] Dr. Joanna Chen RBC 4.38 106/ul Normal 4.20-5.40 [facility] Comment on above: Performed By: #### G LU1HR #### [facility] [address] [address] [address] Joanna Chen WBC 9.2 103/ul Normal 4.0-11.0 [facility] Comment on above: Performed By: #### G LU1HR #### [facility] [address] [address] [address] Joanna Chen CULTURE URINEon 07-04-2021 CULTURE URINE Culture Observations : NO GROWTH. Normal [facility] Comment on above: Performed By: #### U RCX #### [facility] [address] [address] [address] Joanna Chen GLYCOHEMOGLOBIN A1Con 2020 ADA RECOMMENDATION ADA THERAPEUTIC TARG ET 6.0 - 7.0 ACTION SUGGESTED > 7.0 Normal [facility] Comment on above: Performed By: #### A 1C #### [facility] [address] [place] [address] Dr. Joanna Chen Glucose [Mass/Vol] 103 mg/dL Normal [facility] Comment on above: Performed By: #### A 1C #### [facility] [address] [place] [address] Dr. Joanna Chen HbA1c (Bld) [Mass fraction] 5.2 % Normal <=6.0 [facility] Comment on above: Performed By: #### A 1C #### [facility] [address] [place] [address] Dr. Joanna Chen TYPE AND SCREENon 07-04-2021 TYPE AND SCREEN Negative Normal [facility] Comment on above: Performed By: #### C MP, PREGQNT #### [facility] [address] [place] [address] Dr. Joanna Chen US PREG TVon 07-03-2021 [...] by: JESSENIA LOPEZ Date: 2021-07-03 07:14 Normal [facility] Coding Summary.on 03-31-2020 Coding Summary. CODING DATE: FINAL [facility] STATUS: Home (Routine DC) PAYOR: Lida ADMIT DX: REASON FOR VISIT DX: Z01.812 Encounter [...] Michael CphT Date Saved: 03/31/2020 10:26 am [facility] Physician Orderon 03-19-2020 Physician Order [id number]#1.00CD:127 Normal [facility] Ambulatory Clinical Summaryo n 02-05-2020 Ambulatory Clinical Summary {[id number]}CD:6143 68 Normal [facility] Coding Summary.on 02-04-2020 Coding Summary. CODING DATE: FINAL [facility] STATUS: Home (Routine DC) PAYOR: Lida APC DESCRIPTION 5301 Level 1 Upper GI Procedures ADMIT DX: REASON FOR VISIT DX: R10.13 Epigastric pain FINAL DX: PRINCIPAL: K29.70 Gastritis, unspecified, without bleeding SECONDARY: PYMT PROC APC STAT DESCRIPTION DOCTOR NAME DATE 52988 5301 T Teddy HERNANDEZ MD 01/25/2020 phagogastroduodenoscopy, flexible, transoral; with biopsy, single or multiple 60403 Anesthesia for upper 01/25/2020 gastrointestinal endoscopic procedures, endoscope introduced proximal to duodenum; not otherwise specified NOTE: The code number assigned matches the documented diagnosis and / or procedure in the patient's chart. However, the narrative phrase printed from the coding software may appear abbreviated, or result in slightly different terminology. Revised Coded By: Constance Means Revised Date Saved: 02/04/2020 12:33 pm Normal [facility] IntraOperative Documentson 0 01-29-2020 IntraOperative Documents [id number]#1.00CD:127 [facility] Postoperative Documentson Postoperative Documents [id number]#1.00CD:127 Normal [facility] Main OR Intraoperative Recor don 01-28-2020 Main OR Intraoperative Record IntraOp Document Type FT Summary Primary Physician: Teddy HERNANDEZ MD Finalized Date/Time: 01/28/20 09:11:27 Pt. Name: VERÓNICA RIVERS/Sex: 1995 Female Med Rec #: [id number] Physician: Teddy HERNANDEZ MD Financial #: [id number] Pt. Type: O Room/Bed: / Admit/Disch: 01/25/20 [...] EGD(.) EGD(.) EGD(.) Comments Last Modified By: Areli EARLY, Lorena Singleton RN, Lorena Starkey RN 01/25/20 10:18:20 01/25/20 10:18:20 01/25/20 10:18:20 Entry 4 Case Attendee Lorena Singleton RN Role Performed Transport Manager - Primary Time In 01/25/20 10:06:00 Time [...] VALLE, Teddy Marie, Ronak Pruett CST, Rod Altamiraon, Areli EARLY, Nura Rashid Jr., DO, Gary [...] and tissue Entry 1 Skin Integrity Intact, [place], Warm, and Skin Abnormality No Dry Outcomes [...] By Lorena Singleton RN, Fennig Jr. DO, Manuel Outcomes Met? Yes Last Modified By: Lorena [...] caused by extraneous objects Transport To OR Pre-Care Text: Transports according to individual needs. [...] Comments: REPORT GIVEN TO PACU NURSE. SHARATH DUTTAcyber operator Administration FT Pre-Care Text: Verifies allergies, administers [...] safely administered during the perioperative period For [facility] please see scanned medication reconcilliation form for [...] 01/25/20 10:25 Zabrina Mota CST 01/28/20 09:11 [facility] Consenton 01-25-2020 Consent [id number]#1.00CD:127 [facility] Consent for Treatmenton 01-13 Consent for Treatment [id number]#1.00CD:127 [facility] Discharge Instructionson Discharge Instructions [id number]#1.00CD:127 [facility] History and Physicalon 01-24 History and Physical [id number]#1.00CD:127 [facility] History and Physical Patient: VERÓNICA RIVERS Age: 24 years Sex: Female : 1995 Associated Diagnoses: None Author: Teddy HERNANDEZ MD Subjective no changes to H & P [facility] Comment on above: Result Comment: Elec tronically Signed By: Teddy HERNANDEZ MD\.br\Date and Time Signed: 01/25/20 09:47 EDT Inpatient Patient Summaryon 01-25-2020 Inpatient Patient Summary [address] [address] [facility] Clinical Discharge Instructions PERSON INFORMATION Name: VERÓNICA RIVERS [facility]#:[id number] PHYSICIANS Admitting Physician: Teddy HERNADNEZ MD Attending Physician: Teddy HERNANDEZ MD PCP: Marcello Byrd MD Discharge Diagnosis: Antral gastritis Comment: PATIENT EDUCATION INFORMATION Instructions: Medication Leaflets: Follow up: With: Address: When: Teddy HERNANDEZ [address] [place] [address], [address], [address] [address] Business (1) Within 7 to 10 days MEDICATION LIST Medications to Continue with No Changes Other Medications ethinyl estradiol-norethindrone (Nortrel oral tablet) 1 Tablets By Mouth every day. Comment: Normal [facility] IntraOperative Documentson 0 01-25-2020 IntraOperative Documents [id number]:127 Normal [facility] IntraOperative Documents [id number]:127 [facility] Main OR PACU I Recordon 01-13 Main OR PACU I Record PACU Phase I Document Type FT Summary Primary Physician: Teddy HERNANDEZ MD Finalized Date/Time: 01/25/20 10:57:36 Pt. Name: VERÓNICA RIVERS /Sex: 1995 Female Med Rec #: [id number] Physician: Teddy HERNANDEZ MD Financial #: [id number] Pt. Type: O Room/Bed: / Admit/Disch: 01/25/20 [...] By: Angela Meza RN 01/25/20 10:57 Normal [facility] Main OR Preoperative Recordo n 01-25-2020 Main OR Preoperative Record Holding Area Document Type FT Summary Primary Physician: Teddy HERNANDEZ MD Finalized Date/Time: 01/25/20 09:50:47 Pt. Name: VERÓNICA RIVERS/Sex: 1995 Female Med Rec #: [id number] Physician: Teddy HERNANDEZ MD Financial #: [id number] Pt. Type: O Room/Bed: / Admit/Disch: 01/25/20 [...] By: Krystal Valdez RN 01/25/20 09:50 Normal [facility] Monitor Recordon 01-25-2020 Monitor Record [id number]#1.00CD:127 Normal [facility] Operative Reporton 0 Operative Report Date [...] in good condition. Nima Stevens Dictated: 01/25/2020 #[id number] Typed: 01/25/2020 #[id number] cc: Nima Higginbotham M.D. [facility] Comment on above: Result Comment: Elec tronically Signed By: Teddy HERNANDEZ MD.br\Date and Time Signed: 01/25/20 12:21 EDT Patient Education - Texton 0 01-25-2020 Patient Education - Text [facility] Progress Note-Physicianon Progress Note-Physician Patient: VERÓNICA RIVERS Age: 24 years Sex: Female : [...] All Problems Chronic tonsillitis / SNOMED CT 471762014 / Confirmed Abdominal pain, epigastric / SNOMED CT 573238594 / Confirmed Abdominal pain, left upper quadrant / SNOMED CT 573095241 / Confirmed Loss of appetite / SNOMED CT 524741445 / Confirmed Migraine / SNOMED CT 19868163 / Confirmed Nausea in adult / SNOMED CT 1639306484 / Confirmed Patellofemoral syndrome / SNOMED CT 0534735392 / Confirmed Raynaud's syndrome / SNOMED CT 909026321 / Confirmed, Active Problems (8) Abdominal pain, epigastric Abdominal pain, left upper quadrant Chronic tonsillitis Loss of appetite Migraine Nausea in adult Patellofemoral syndrome Raynaud's syndrome Histories Past Medical History: No active or resolved past medical history items have been selected or recorded. Family History: No family history items have been selected or recorded. Procedure history: Arthroscopy of knee ([id number]). Comments: 12/25/2019 14:10 EDT - Roxanne Morales [...] review: No qualifying data available . Plan [place] [employer]hesi[employer] (ASA) physical status classification: Class II. Anesthetic Preoperative Plan Anesthesia: Monitored anesthesia care and general anesthesia if required.. Anesthetic plan, risks, benefits, and alternatives discussed with the patient and/or family. Pt. and/or family present and agree to proceed as planned.. Normal [facility] Comment on above: Result Comment: Elec tronically Signed By: Manuel Lyman Jr., DO\.br\Date and Time Signed: 01/25/20 09:57 EDT Vital Signs Date Time Vital Sign Value Performing Clinician Bishop guan 09-20-2023 09:51-0500 Body weight 89.41 kg Dionisio Ruth DO Work Phone: [facility] 09-20-2023 09:51-0500 Diastolic blood pressure 70 mm[Hg] Dionisio Ruth DO Work Phone: [facility] 09-20-2023 09:51-0500 Systolic blood pressure 114 mm[Hg] Dionisio Ruth DO Work Phone: [facility] Encounters Encounter Date Encounter Type Care Provider Facility Start: 09-20-2023 End: 09-20-2023 ambulatory DIONISIO RUTH Not Available Start: 09-20-2023 End: 09-20-2023 flow sheet Dionisio Ruth DO Work Phone: [facility] Comment on above: Second trimester pre gnancy; Placental abnormality in second trimester Start: 08-23-2023 End: 08-23-2023 ambulatory DIONISIO MIRANDA Not Available Start: 07-20-2023 End: 07-20-2023 ambulatory DIONISIO MIRANDA Not Available Start: 05-26-2022 End: 05-26-[address] DIONISIO MIRANDA Facility:[facility] Start: 02-08-2022 End: 02-08-2022 ambulatory NONE LISTED REQUEST Facility:[facility] Start: 02-01-2022 End: 02-04-2022 Evaluation and management of inpatient DR DIONISIO MIRANDA Facility:[facility] Start: 01-27-2022 Evaluation and manag ement of inpatient NONE LISTED REQUEST Facility:[facility] Start: 01-21-2022 End: [...] Date Procedure Procedure Detail Performing Clinician Start: 09-20-2023 Urnls dip stick/tabl et rgnt non-auto w/o micrscp Dionisio Miranda DO Work Phone: Start: 02-04-2022 Introduction of Othe r Therapeutic Substance into Spinal Canal, Percutaneous Approach DR DIONISIO MIRANDA Start: 06-20-2022 Extraction of Produc ts of Conception, Low Cervical, Open Approach DR DIONISIO MIRANDA Start: 02-01-2022 Reposition Products of Conception, External Approach DR DIONISIO MIRANDA Plan of Treatment Date Care Activity Detail Author Start: 10-08-2023 End: 09-20-2024 US for US OB PLACENTA W US OB TRANSVAGINAL Imaging Routine Placental abnormality in second trimester Expected: 10/08/2023 (Approximate), Expires: 09/20/2024 [facility] Work Phone: Comment on above: Expected: 10/08/2023 (Approximate), Expires: 09/20/2024 Start: 10-04-2023 End: 10-04-2023 Patient encounter procedure 10/04/2023 2:10 PM EST Routine [facility] [address] [place] [id number] Dionisio Miranda, DO [address] [place] [address] [facility] Payers Date Payer Category Payer Unknown [id number] 2022 Unknown [employer] [id number] 2022-Present [phone] [address] [address] [place] [address] [id number] 1995 Unknown [id number] 2.16.840.1.017346.3.579.2.59 3 1995 Unknown [id number] 2.16.840.1.653320.3.579.2.59 3 1995 Unknown [id number] 2.16.840.1.155199.3.579.2.59 3 1995 Unknown [id number] 2.16.840.1.019465.3.579.2.59 3 1995 Unknown [id number] 2.16.840.1.358654.3.579.2.59 3 1995 Unknown [id number] 2.16.840.1.972862.3.579.2.59 3 1995 Unknown [id number] 2.16.840.1.180155.3.579.2.59 3 1995 Unknown [id number] 2.16.840.1.968006.3.579.2.59 3 1995 Unknown [id number] 2.16.840.1.358307.3.579.2.59 3 1995 Unknown [id number] 2.16.840.1.482169.3.579.2.59 3 1995 Unknown [id number] 2.16.840.1.634012.3.579.2.59 3 1995 Unknown [id number] 2.16.840.1.389020.3.579.2.59 3 1995 Unknown [id number] 2.16.840.1.312284.3.579.2.59 3 1995 Unknown [id number] 2.16.840.1.592294.3.579.2.12 59 1995 Unknown [id number] 2.16.840.1.392566.3.579.2.12 59 1995 Unknown [id number] 2.16.840.1.858542.3.579.2.12 59 1959 Self-pay 1959 Unknown [id number] 1959 Unknown [id number] 1959 Unknown [id number] Unknown [id number] 2.16.840.1.862614.3.579.2.59 3 Social History Date Type Detail Facility Tobacco smoking stat [facility] Tobacco smoking consumption unknown [facility] Start: 04-06-2023 [facility] Start: 1995 Sex Assigned At Female [facility] Start: 04-20-2023 Gender identity Identifies as female gender (finding) [facility] Start: 04-20-2023 Sexual orientation Heterosexual (fin ding) [facility] History of Present illness Narrative 09-20-2023 Linda Myers, ASSISTANT EXECUTIVE HOUSEKEEPER - 09/20/2023 9:40 AM EST Note Date & Type Note Facility 09-20-2023 History of Presen t illness Narrative Reason for Appointment: Patient ID: Verónica Decker is a 28 y.o. female who presents for Routine Visit Patient presents today for Return OB appointment. Current Medications: has a current medication list which includes the following prescription(s): magnesium and vit w/yv-bujvfoecu-kh. Medical History: Active Ambulatory Problems Diagnosis Date Noted No Active Ambulatory Problems Resolved Ambulatory Problems Diagnosis Date Noted No Resolved Ambulatory Problems No Additional Past Medical History No family history on file. Social History Tobacco Use Smoking status: Not on file Smokeless tobacco: Not on file Substance Use Topics Alcohol use: Not on file Drug use: Not on file History reviewed. No pertinent surgical history. No Known Allergies Review of Systems: Review of Systems Constitutional: Negative. HENT: Negative. Eyes: Negative. Respiratory: Negative. Cardiovascular: Negative. Gastrointestinal: Negative. Genitourinary: Negative. Musculoskeletal: Negative. Skin: Negative. Neurological: Negative. All other systems reviewed and are negative. Hematological: Negative. Endocrine: Negative. Allergic/Immunologic: Negative. Objective Physical Exam Constitutional: Appearance: Normal appearance. She is well-developed. Cardiovascular: Rate and Rhythm: Normal rate and regular rhythm. Pulmonary: Effort: Pulmonary effort is normal. Breath sounds: Normal breath sounds. Abdominal: General: Bowel sounds are normal. There is no distension. Palpations: Abdomen is soft. Tenderness: There is no abdominal tenderness. There is no guarding or rebound. Musculoskeletal: General: No swelling. Normal range of motion. Right lower leg: No edema. Left lower leg: No edema. Neurological: Mental Status: She is alert and oriented to person, place, and time. Skin: General: Skin is warm and dry. Psychiatric: Mood and Affect: Mood normal. Behavior: Behavior normal. Vitals and nursing note reviewed. Exam conducted with a school age program teacher present. Vitals: There is no height or weight on file to calculate BMI. BP: 114/70 Patient's last menstrual period was 03/23/2023. Assessment/Plan Encounter Diagnoses Name Primary? Second trimester Placental abnormality in second trimester Patient presents today for a routine obstetrics appointment. Patient is currently 25w6d with a Estimated Date of Delivery: 12/28/23. Patient presents today for a routine obstetrics appointment. Patient is currently 25w6d . Patient states she is doing well but has complaints of being tired due to current . Patient has verbalizes frequent movement. labor precautions was discussed/given and patient was instructed to perform kick counts three times a day. Pt given follow up anatomy scan to view for venous lakes Follow Up: Patient is to return to office in 2 week for routine OB appointment. Documented by Linda Myers LPN on behalf of: Dionisio Miranda DO documented in this encounter [facility] Clinical Note 02-01-2022 Note Date & Type Note Facility 02-01-2022 Note [facility] [place], [place] NAME: VERÓNICA DECKER DATE OF : MEDICAL REC#: [id number] TELEVISION REPAIRMAN: 160ISMAEL RUBALCAVA ADMIT DATE: 02/01/2022 07:59:00 EASEMENT MAN DATE: 02/02/2022 22:13 DICTATING PHYSICIAN: DIONISIO MIRANDA [...] Spinal with Duramorph. SURGEON: Dionisio Miranda D.O. TRACK HOE OPERATOR: THERESE Abbasi URINE OUTPUT: Yellow and clear. [...] and cut. Cord blood was obtained. The infant was handed off to awaiting team. The [...] Miranda DO on 02/04/2022 10:17 AM EDT [facility] Signed and Approved by: DR DIONISIO MIRANDA . 02/04/2022 10:17:00 [facility] Discharge summary note 02-01-2022 Note Date [...] pain free and no longer on narcotics. [facility] Signed and Approved by: DR DIONISIO MIRANDA . 02/07/2022 10:46:00 [facility] Evaluation note Note Date & Type Note Facility Evaluation note Diagnosis Second trimester state, incidental Placental abnormality in second trimester documented in this encounter [facility] Summary Purpose Family History No Family History Records FoundNo Family History Records FoundNo Family History Records Found Advance Directives No Advanced Directives Records FoundNo Advanced Directives Records FoundNo Advanced Directives Records Found Procedure Findings Note Patient: VERÓNICA RIVERS Age: 24 years Sex: Female : 1995 Associated Diagnoses: None Author: Manuel Lyman Jr., DO Postoperative Information Post Operative Note Anesthetic utilized: Monitored anesthesia care. 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 denies significant n/v, and is (more content not included)... Additional Source Comments INFORMATION SOURCE (unrecogn ized section and content) DATE CREATED AUTHOR 03/31/2020 Sukhwinder Wright [facility] DATE CREATED AUTHOR AUTHOR'S ORGANIZ ATION 06/07/2022 [facility] DATE CREATED AUTHOR AUTHOR'S ORGANIZ ATION 09/21/2023 [facility] EPIC Reason for Visit (unrecogniz ed section and content) Reason Comments Routine Visit Care Teams (unrecognized sec tion and content) Web Machine Tender Relationship Specialty Start Date End Date Marcello Byrd MD [address] [facility] [place] [address] PCP - General Family Medicine 05/20/23 FOR RECORDS PERTAINING TO PATIENTS WHO ARE [...] BE BASED ON THE PRIMARY CLINICAL RECORDS. [employer] [facility]. provides no warranty or guarantee of the accuracy or completeness of information in this document.
== END 2023-09-24 07:59 | disposition home or self-care (01) ==
PROVIDERS: PCP Family Medicine; Visit Provider Obstetrics & Gynecology
DX: O43.102 Malformation of placenta, unspecified, second trimester (principal); Z3A.26 26 weeks gestation of pregnancy
CPT/HCPCS: 76815; 76817

== ENCOUNTER 2023-11-30 20:14 | Outpatient (REF) | payer OTHER, SELFPAY ==
--- OUTSIDE RECORDS SUMMARY | 2023-11-30 20:21 | XMS_ITS | CCD ---
Author Organization [facility] Care Team Providers Care Corporate Real Estate Manager Name Role Phone RUTH, DR NICHOLE Consulting [...] Unavailable ZIEBER, DR ORQUIDEA Marie Consulting Unavailable ROPER, DR JESSENIA Cote Consulting Unavailable REQUEST, DR [...] Unavailable RUTH, DR NICHOLE Procedure Practitioner Unavailab BRIANNA Garcia Consulting Unavailable GERAMISHAANBRIANNA Procedure Practitioner Unavaila kendrick MIRANDA, DR NICHOLE Consulting Unavailable RUTH, DR NICHOLE [...] Admitting Unavailable RUTH, DR NICHOLE Consulting Unavailable CARSON, DR ATWOOD Primary Care Unavailable RUTH, DR NICHOLE Attending Unavailable RUTH, DR NICHOLE Admitting Unavailable WEST, DR JESSENIA Cote Consulting Unavailable BENNIEY, DR ATWOOD Primary Care Unavailable RUTH, DR NICHOLE Attending Unavailable RUTH, DR NICHOLE Admitting Unavailable RUTH, DR NICHOLE Consulting Unavailable Carson VALLE, Marcello Altamirano Primary Care Provider [phone] DIONISIO MIRANDA Attending Unavailable RUTH, DIONISIO Attending Unavailable RUTH, DIONISIO Attending Unavailable RUTH, DIONISIO Attending Unavailable RUTH, DIONISIO Attending Unavailable RUTH, DIONISIO Attending Unavailable RUTH, DIONISIO Attending Unavailable Medications Current Medications Medication Drug Class(es) Dates Sig (Normalized) Sig (Original) Magnesium (2 sources) Start: 08-23-2023 End: 08-22-2024 take 2 tablets by mouth in the morning magnesium 200 MG tablet Indications: Cluster headache, not intractable, unspecified chronicity pattern Take 2 tablets (400 mg) by mouth in the morning. 60 tablet 11 08/23/2023 08/22/2024 Active Vit w/Aa-Uyhukiwbz-IM (PNV PO) (2 sources) take 1 tablet by mouth in the morning Vit w/Ja-Zmxmpextq-QQ (PNV PO) Take 1 tablet by mouth [...] UA Negative Negative - 4(70) +++ mg/dL [facility] Blood, UA Negative Negative - 50 Zeus/mcL [facility] Clarity, UA Clear [facility] Color, UA Yellow [facility] Glucose, UA Negative Negative - 1999(110) ++++ mg/dL [facility] Interpretation and review of laboratory results Abnormal [facility] Ketones, UA Negative Negative - 160(16) ++++ mg/dL [facility] Leukocytes, UA Trace Negative - 500+++ Jing/mcL [facility] Nitrite, UA Negative Negative - Positive [facility] pH, UA 7.0 5 - 9 [facility] Protein, UA Negative Negative - 2000(20) ++++ mg/dL [facility] Spec Grav, UA 1.010 1 - 1.03 [facility] Urobilinogen, UA 0.2 0.2 - 12 mg/dL [facility] PAP ACOG PANEL 2: 23 to 31on 06-02-2022 . . Normal [facility] Comment on above: Performed By: #### G LU1HR #### [facility] [address] [address] [address] Joanna Chen Age Gdln ACOG Testing - Normal [facility] Comment on above: Performed By: #### G LU1HR #### [facility] [id number] Joanna Chen DIAGNOSIS: Comment [facility] Comment on above: Result Comment: NEGA TIVE FOR INTRAEPITHELIAL LESION OR MALIGNANCY. Performed By: #### G LU1HR #### [facility] [address] [place] [address] Dr. Joanna Chen Methodology: Comment Normal [facility] Comment on above: Result Comment: This liquid based ThinPrep(R) pap test was screened with the use of an image guided system. Performed By: #### G LU1HR #### [facility] [address] [place] [address] Dr. Joanna Chen Note: Comment Normal [facility] Comment on above: Result Comment: The Pap smear is a screening test designed to aid in the detection of premalignant and malignant conditions of the uterine cervix. It is not a diagnostic procedure and should not be used as the sole means of detecting cervical cancer. Both false-positive and false-negative reports do occur. . Performed By: #### G LU1HR #### [facility] [address] [place] [address] Dr. Joanna Chen Performed by: Comment Normal [facility] Comment on above: Result Comment: Serena Bassett, Ship Washer (ASCP) Performed By: #### G LU1HR #### [facility] [address] [place] [address] Dr. Joanna Chen Reflex Criteria: Comment Normal [facility] Comment on above: Result Comment: The HPV DNA reflex criteria were not met with this specimen result therefore, no HPV testing was performed. . Performed By: #### G LU1HR #### [facility] [address] [place] [address] Dr. Joanna Chen Specimen adequacy: Comment Normal [facility] Comment on above: Result Comment: Sati sfactory for evaluation. Endocervical and/or squamous metaplastic cells (endocervical component) are present. Performed By: #### G LU1HR #### [facility] [address] [place] [address] Dr. Joanna Chen CBC AUTO DIFFon 02-02-2022 BASO # 0.1 103/ul Normal 0.0-0.1 [facility] Comment on above: Performed By: #### H BSANS #### [facility] [address] [address] [address] Joanna Chen Basophils/100 WBC (Bld) 0.3 % Normal 0.2-2.0 [facility] Comment on above: Performed By: #### H BSANS #### [facility] [address] [address] [address] Joanna Chen EO # 0.1 103/ul Normal 0.0-0.7 [facility] Comment on above: Performed By: #### H BSANS #### [facility] [address] [place] [address] Dr. Joanna Chen Eosinophils/100 WBC (Bld) 0.4 % Critically low 0.9-7.0 [facility] Comment on above: Performed By: #### H BSANS #### [facility] [address] [place] [address] Dr. Joanna Chen Erythrocyte distribution width (RBC) [Ratio] 13.8 % Normal 11.0-15.0 [facility] Comment on above: Performed By: #### H BSANS #### [facility] [address] [place] [address] Dr. Joanna Chen Hematocrit (Bld) [Volume fraction] 31.7 % Critically low 36.0-48.0 [facility] Comment on above: Performed By: #### H BSANS #### [facility] [address] [place] [address] Dr. Joanna Chen Hemoglobin (Bld) [Mass/Vol] 10.0 g/dL Critically low 12.0-16.0 [facility] Comment on above: Performed By: #### H BSANS #### [facility] [address] [address] [address] Joanna Chen IG # 0.15 10e3/ul Critically high 0.00-0.03 [facility] Comment on above: Performed By: #### H BSANS #### [facility] [address] [place] [address] Dr. Joanna Chen IG % 0.9 % Critically high 0.0-0.5 [facility] Comment on above: Performed By: #### H BSANS #### [facility] [address] [address] [address] Joanna Chen LYMPH # 1.7 103/ul Normal 1.2-3.8 [facility] Comment on above: Performed By: #### H BSANS #### [facility] [address] [address] [address] Joanna Chen Lymphocytes/100 WBC (Bld) 10.5 % Critically low 20.5-60.0 [facility] Comment on above: Performed By: #### H BSANS #### [facility] [address] [address] [address] Joanna Chen MANUAL DIFF REQ NO Normal [facility] Comment on above: Performed By: #### H BSANS #### [facility] [address] [place] [address] Dr. Joanna Chen MCH (RBC) [Entitic mass] 29.2 pg Normal 26.7-34.0 [facility] Comment on above: Performed By: #### H BSANS #### [facility] [address] [place] [address] Dr. Joanna Chen MCHC (RBC) [Mass/Vol] 31.5 g/dL Normal 29.9-35.2 [facility] Comment on above: Performed By: #### H BSANS #### [facility] [address] [place] [address] Dr. Joanna Chen MCV (RBC) [Entitic vol] 92.4 fL Normal 81.0-99.0 [facility] Comment on above: Performed By: #### H BSANS #### [facility] [address] [place] [address] Dr. Joanna Chen MONO # 1.2 103/ul Critically high 0.3-0.8 [facility] Comment on above: Performed By: #### H BSANS #### [facility] [address] [address] [address] Joanna Chen Monocytes/100 WBC (Bld) 7.2 % Normal 1.7-12.0 [facility] Comment on above: Performed By: #### H BSANS #### [facility] [address] [address] [address] Jonana Chen NEUT # 13.0 103/ul Critically high 1.4-6.5 [facility] Comment on above: Performed By: #### H BSANS #### [facility] [address] [address] [address] Joanna Chen Neutrophils/100 WBC (Bld) 80.7 % Critically high 43.0-75.0 [facility] Comment on above: Performed By: #### H BSANS #### [facility] [address] [address] [address] Joanna Chen Platelet mean volume (Bld) [Entitic vol] 10.0 fL Normal 9.5-13.5 [facility] Comment on above: Performed By: #### H BSANS #### [facility] [address] [address] [address] Joanna Chen PLT 181 103/ul Normal 150-450 [facility] Comment on above: Performed By: #### H BSANS #### [facility] [address] [address] [address] Joanna Chen RBC 3.43 106/ul Critically low 4.20-5.40 [facility] Comment on above: Performed By: #### H BSANS #### [facility] [address] [address] [address] Joanna Chen WBC 16.1 103/ul Critically high 4.0-11.0 [facility] Comment on above: Performed By: #### H BSANS #### [facility] [address] [address] [address] Joanna Chen CBC AUTO DIFFon 02-01-2022 BASO # 0.0 103/ul Normal 0.0-0.1 [facility] Comment on above: Performed By: #### G LU1HR #### [facility] [address] [address] [address] Joanna Chen Basophils/100 WBC (Bld) 0.2 % Normal 0.2-2.0 [facility] Comment on above: Performed By: #### G LU1HR #### [facility] [address] [place] [address] Dr. Joanna Chen EO # 0.0 103/ul Normal 0.0-0.7 [facility] Comment on above: Performed By: #### G LU1HR #### [facility] [address] [place] [address] Dr. Joanna Chen Eosinophils/100 WBC (Bld) 0.2 % Critically low 0.9-7.0 [facility] Comment on above: Performed By: #### G LU1HR #### [facility] [address] [place] [address] Dr. Joanna Chen Erythrocyte distribution width (RBC) [Ratio] 13.8 % Normal 11.0-15.0 [facility] Comment on above: Performed By: #### G LU1HR #### [facility] [address] [place] [address] Dr. Joanna Chen Hematocrit (Bld) [Volume fraction] 36.2 % Normal 36.0-48.0 [facility] Comment on above: Performed By: #### G LU1HR #### [facility] [address] [place] [address] Dr. Joanna Chen Hemoglobin (Bld) [Mass/Vol] 11.8 g/dL Critically low 12.0-16.0 [facility] Comment on above: Performed By: #### G LU1HR #### [facility] [address] [place] [address] Dr. Joanna Chen IG # 0.14 10e3/ul Critically high 0.00-0.03 [facility] Comment on above: Performed By: #### G LU1HR #### [facility] [address] [place] [address] Dr. Joanna Chen IG % 1.0 % Critically high 0.0-0.5 [facility] Comment on above: Performed By: #### G LU1HR #### [facility] [address] [place] [address] Dr. Joanna Chen LYMPH # 2.0 103/ul Normal 1.2-3.8 [facility] Comment on above: Performed By: #### G LU1HR #### [facility] [address] [place] [address] Dr. Joanna Chen Lymphocytes/100 WBC (Bld) 14.5 % Critically low 20.5-60.0 [facility] Comment on above: Performed By: #### G LU1HR #### [facility] [address] [place] [address] Dr. Joanna Chen MANUAL DIFF REQ NO Normal [facility] Comment on above: Performed By: #### G LU1HR #### [facility] [address] [place] [address] Dr. Joanna Chen MCH (RBC) [Entitic mass] 29.2 pg Normal 26.7-34.0 [facility] Comment on above: Performed By: #### G LU1HR #### [facility] [address] [place] [address] Dr. Joanna Chen MCHC (RBC) [Mass/Vol] 32.6 g/dL Normal 29.9-35.2 [facility] Comment on above: Performed By: #### G LU1HR #### [facility] [address] [place] [address] Dr. Joanna Chen MCV (RBC) [Entitic vol] 89.6 fL Normal 81.0-99.0 [facility] Comment on above: Performed By: #### G LU1HR #### [facility] [address] [place] [address] Dr. Joanna Chen MONO # 1.0 103/ul Critically high 0.3-0.8 [facility] Comment on above: Performed By: #### G LU1HR #### [facility] [address] [place] [address] Dr. Joanna Chen Monocytes/100 WBC (Bld) 7.2 % Normal 1.7-12.0 [facility] Comment on above: Performed By: #### G LU1HR #### [facility] [address] [place] [address] Dr. Joanna Chen NEUT # 10.6 103/ul Critically high 1.4-6.5 [facility] Comment on above: Performed By: #### G LU1HR #### [facility] [address] [place] [address] Dr. Joanna Chen Neutrophils/100 WBC (Bld) 76.9 % Critically high 43.0-75.0 [facility] Comment on above: Performed By: #### G LU1HR #### [facility] [address] [place] [address] Dr. Joanna Chen Platelet mean volume (Bld) [Entitic vol] 9.7 fL Normal 9.5-13.5 [facility] Comment on above: Performed By: #### G LU1HR #### [facility] [address] [place] [address] Dr. Joanna Chen PLT 203 103/ul Normal 150-450 [facility] Comment on above: Performed By: #### G LU1HR #### [facility] [address] [place] [address] Dr. Joanna Chen RBC 4.04 106/ul Critically low 4.20-5.40 [facility] Comment on above: Performed By: #### G LU1HR #### [facility] [address] [place] [address] Dr. Joanna Chen WBC 13.8 103/ul Critically high 4.0-11.0 [facility] Comment on above: Performed By: #### G LU1HR #### [facility] [address] [place] [address] Dr. Joanna Chen Covid-19 PCR ([facility])on 01-14 SARS-CoV-2 (COVID-19) RNA MANINDER+probe Ql (Unsp spec) Not detected Normal NOT DETECTED [facility] Comment on above: Result Comment: When diagnostic [...] for this test is supported by the [place] of [employer] and Human Service's declaration that [...] used). Performed By: #### G LU1HR #### [facility] [address] [place] [address] Dr. Joanna Chen DRUG SCREEN RAPID (URINE)on 02-01-2022 AMP Negative Normal NEGATIVE [facility] Comment on above: Performed By: #### H BSANS #### [facility] [address] [place] [address] Dr. Joanna Chen BAR Negative Normal NEGATIVE [facility] Comment on above: Performed By: #### H BSANS #### [facility] [address] [place] [address] Dr. Joanna Chen BUP Negative Normal NEGATIVE [facility] Comment on above: Performed By: #### H BSANS #### [facility] [address] [place] [address] Dr. Joanna Chen BZO Negative Normal NEGATIVE [facility] Comment on above: Performed By: #### H BSANS #### [facility] [address] [place] [address] Dr. Joanna Chen HALLE Negative Normal NEGATIVE [facility] Comment on above: Performed By: #### H BSANS #### [facility] [address] [place] [address] Dr. Joanna Chen CUT-OFFS SEE BELOW Normal [facility] Comment on above: Result Comment: AMP (Amphetamine): 500ng/mL, BAR (Barbituates): 200 ng/mL, BZO (Benzodiazepines): 150 ng/mL, BUP (Buprenorphine): 10 ng/mL, HALLE (Cocaine): 150 ng/mL, mAMP (Methamphetamine): 500 ng/mL, MTD (Methadone): 200 ng/mL, OPI (Opiates): 100 ng/mL, OXY (Oxycodone): 100 ng/mL, PCP (Phencyclidine): 25 ng/mL, PPX (Propoxyphene): 300 ng/mL, THC (Cannabinoids): 50 ng/mL, TCA (Trycyclic Antidepressants): 300 ng/mL Performed By: #### H BSANS #### [facility] [address] [place] [address] Dr. Joanna Chen DRUG CUT HEADER DRUG CLASS TEST SYST EM CUT-OFF CONCENTRATIONS ARE FOLLOWS: Normal [facility] Comment on above: Performed By: #### H BSANS #### [facility] [address] [place] [address] Dr. Joanna Chen mAMP Negative Normal NEGATIVE [facility] Comment on above: Performed By: #### H BSANS #### [facility] [address] [place] [address] Dr. Joanna Chen MTD Negative Normal NEGATIVE [facility] Comment on above: Performed By: #### H BSANS #### [facility] [address] [place] [address] Dr. Joanna Chen OPI Negative Normal NEGATIVE [facility] Comment on above: Performed By: #### H BSANS #### [facility] [address] [place] [address] Dr. Joanna Chen OXY Negative Normal NEGATIVE [facility] Comment on above: Performed By: #### H BSANS #### [facility] [address] [place] [address] Dr. Joanna Chen PCP Negative Normal NEGATIVE [facility] Comment on above: Performed By: #### H BSANS #### [facility] [address] [place] [address] Dr. Joanna Chen PPX Negative Normal NEGATIVE [facility] Comment on above: Performed By: #### H BSANS #### [facility] [address] [place] [address] Dr. Joanna Chen TCA Negative Normal NEGATIVE [facility] Comment on above: Performed By: #### H BSANS #### [facility] [address] [place] [address] Dr. Joanna Chen THC Negative Normal NEGATIVE [facility] Comment on above: Performed By: #### H BSANS #### [facility] [address] [place] [address] Dr. Joanna Chen TYPE AND SCREENon 02-01-2022 TYPE AND SCREEN Negative Normal [facility] Comment on above: Performed By: #### C MP, PREGQNT #### [facility] [address] [place] [address] Dr. Joanna Chen UA (CLEAN/CATCH) PATIENT SERVICES MANAGER/MICRO I F IND.on 02-01-2022 Bilirubin Ql (U) Negative Normal NEGATIVE [facility] Comment on above: Performed By: #### U ACSIND, UMICRO #### [facility] [address] [place] [address] Dr. Joanna Chen Clarity (U) CLEAR Normal CLEAR [facility] Comment on above: Performed By: #### U ACSIND, UMICRO #### [facility] [address] [place] [address] Dr. Joanna Chen Color (U) LT. YELLOW Normal YELLOW [facility] Comment on above: Performed By: #### U ACSIND, UMICRO #### [facility] [address] [place] [address] Dr. Joanna Chen Glucose Ql (U) Negative Normal NEGATIVE [facility] Comment on above: Performed By: #### U ACSIND, UMICRO #### [facility] [address] [place] [address] Dr. Joanna Chen Hemoglobin Ql (U) Negative Normal NEGATIVE [facility] Comment on above: Performed By: #### U ACSIND, UMICRO #### [facility] [address] [place] [address] Dr. Joanna Chen Ketones Ql (U) Negative Normal NEGATIVE [facility] Comment on above: Performed By: #### U ACSIND, UMICRO #### [facility] [address] [place] [address] Dr. Joanna Chen LEUKOCYTES TRACE Abnormal NEGATIVE [facility] Comment on above: Performed By: #### U ACSIND, UMICRO #### [facility] [address] [place] [address] Dr. Joanna Chen Nitrite Ql (U) Negative Normal NEGATIVE [facility] Comment on above: Performed By: #### U ACSPRIETO, UMICRO #### [facility] [address] [place] [address] Dr. Joanna Chen pH (U) 7.0 [pH] Normal 5-9 [facility] Comment on above: Performed By: #### U ACSPRIETO, UMICRO #### [facility] [address] [place] [address] Dr. Joanna Chen SPEC GRAVITY 1.010 Normal 1.005-<=1.0 25 [facility] Comment on above: Performed By: #### U ACSPRIETO, UMICRO #### [facility] [address] [place] [address] Dr. Joanna Chen UA PROTEIN Negative Normal NEGATIVE/ TRACE [facility] Comment on above: Performed By: #### U ACSPRIETO, UMICRO #### [facility] [address] [place] [address] Dr. Joanna Chen UR MICRO IND INDICATED Normal [facility] Comment on above: Performed By: #### U ACSPRIETO, UMICRO #### [facility] [address] [place] [address] Dr. Joanna Chen Urobilinogen Qn (U) 0.2 {Frank'U}/dL Normal 0.2 - 1.0 [facility] Comment on above: Performed By: #### U ACSPRIETO, UMICRO #### [facility] [address] [place] [address] Dr. Joanna Chen URINE MICROSCOPIC ONLYon BACTERIA NONE SEEN Normal NONE SEEN [facility] Comment on above: Performed By: #### U ACSPRIETO, UMICRO #### [facility] [address] [place] [address] Dr. Joanna Chen Bacteria identified Cx Nom (U) NOT INDICATED Normal [facility] Comment on above: Performed By: #### U ACSPRIETO, UMICRO #### [facility] [address] [place] [address] Dr. Joanna Chen CAST NONE SEEN Normal NONE SEEN [facility] Comment on above: Performed By: #### U ACSPRIETO, UMICRO #### [facility] [address] [place] [address] Dr. Joanna Chen Crystals LM Nom (Urine sed) NONE SEEN Normal NONE SEEN [facility] Comment on above: Performed By: #### U ACSPRIETO, UMICRO #### [facility] [address] [place] [address] Dr. Joanna Chen Epithelial cells LM Ql (Urine sed) FEW Abnormal NONE SEEN /RARE [facility] Comment on above: Performed By: #### U ACSPRIETO, UMICRO #### [facility] [address] [place] [address] Dr. Joanna Chen MUCOUS NONE SEEN Normal NONE SEEN [facility] Comment on above: Performed By: #### U ACSPRIETO, UMICRO #### [facility] [address] [place] [address] Dr. Joanna Chen RBC NONE SEEN Abnormal 0-2 [facility] Comment on above: Performed By: #### U ACSPRIETO, UMICRO #### [facility] [address] [place] [address] Dr. Jonana Chen WBC 0-2 Abnormal NONE SEEN [facility] Comment on above: Performed By: #### U ACSPRIETO, UMICRO #### [facility] [address] [place] [address] Dr. Joanna Chen US PREG BIOPHY W [...] by: ORQUIDEA RING Date: 2022-02-01 12:34 Normal [facility] GROUP B STREP CULTUREon S. agalactiae Ag Ql (Unsp spec) Culture Observations: NEGATIVE FOR GROUP B STREPTOCOCCUS. Normal [facility] Comment on above: Performed By: #### C MP, PREGQNT #### [facility] [address] [address] [address] Joanna Chen US PREG REEVAL ABNon [...] ORQUIDEA RING Date: 2021-12-21 16:20 Normal [facility] GLUCOSE - 1HRon 10-30-2021 Glucose [Mass/Vol] 82 mg/dL Normal 74-106 [facility] Comment on above: Performed By: #### G LU1HR #### [facility] [address] [address] [address] Joanna Chen HEMOGRAM AND PLATELon 2021 Hematocrit (Bld) [Volume fraction] 35.0 % Critically low 36.0-48.0 [facility] Comment on above: Performed By: #### H BSANS #### [facility] [address] [address] [address] Joanna Chen Hemoglobin (Bld) [Mass/Vol] 11.4 g/dL Critically low 12.0-16.0 [facility] Comment on above: Performed By: #### H BSANS #### [facility] [address] [address] [address] Joanna Chen MCH (RBC) [Entitic mass] 30.2 pg Normal 26.7-34.0 [facility] Comment on above: Performed By: #### H BSANS #### [facility] [address] [place] [address] Dr. Joanna Chen MCHC (RBC) [Mass/Vol] 32.6 g/dL Normal 29.9-35.2 [facility] Comment on above: Performed By: #### H BSANS #### [facility] [address] [place] [address] Dr. Joanna Chen MCV (RBC) [Entitic vol] 92.6 fL Normal 81.0-99.0 [facility] Comment on above: Performed By: #### H BSANS #### [facility] [address] [place] [address] Dr. Joanna Chen PLT 267 103/ul Normal 150-450 [facility] Comment on above: Performed By: #### H BSANS #### [facility] [address] [place] [address] Dr. Joanna Chen RBC 3.78 106/ul Critically low 4.20-5.40 [facility] Comment on above: Performed By: #### H BSANS #### [facility] [address] [place] [address] Dr. Joanna Chen WBC 12.0 103/ul Critically high 4.0-11.0 [facility] Comment on above: Performed By: #### H BSANS #### [facility] [address] [place] [address] Dr. Joanna Chen CHLAMYDIA/GONOCOCCUS MANNIDER ( AB/URINE/PAPon 10-21-2021 Chlamydia trachomatis, MANINDER Negative Normal Negative [facility] Comment on above: Performed By: #### G LU1HR #### [facility] [address] [place] [address] Dr. Joanna Chen Neisseria gonorrhoeae, MANINDER Negative Normal Negative [facility] Comment on above: Performed By: #### G LU1HR #### [facility] [address] [place] [address] Dr. Joanna Chen VAGINITIS/VAGINOSIS DNA PROB Cheng 10-20-2021 Earnestine species Negative Normal Negative [facility] Comment on above: Performed By: #### H BSANS #### [facility] [address] [address] [address] Joanna Chen Gardnerella vaginalis Positive Abnormal Negative [facility] Comment on above: Performed By: #### H BSANS #### [facility] [address] [address] [address] Joanna Chen Trichomonas vaginalis Negative Normal Negative [facility] Comment on above: Performed By: #### H BSANS #### [facility] [address] [address] [address] Joanna Chen US PREG INCOMPLETE ANATOMYon 10-19-2021 US PREG INCOMPLETE ANATOMY EXAMINATION: US PREG INCOMPLETE ANATOMY HISTORY: screening COMPARISON: 10/01/2021 FINDINGS: presentation: Cephalic Heart rate: 141 bpm Normal anatomy: Right ventricular outflow track, left ventricular outflow tract Other: Single cardiac focus again noted IMPRESSION: Stable single cardiac focus, nonspecific Electronically authenticated by: JESSENIA LOPEZ Date: 2021-10-19 18:33 Normal [facility] US PREG ANATOMY SINGLEon US PREG ANATOMY [...] (44% by ultrasound, 13% by expected); FL/AC: 0.748587 FL/BPD: 0.109912 HC/AC: 1.262107 GESTATIONAL AGE: Age by EDC: 20 weeks, [...] ORQUIDEA RING Date: 2021-10-01 17:16 Normal [facility] Covid-19 PCR (CVDTB)on 07-15 SARS-CoV-2 (COVID-19) RNA MANINDER+probe Ql (Unsp spec) Not detected Normal NOT DETECTED [facility] Comment on above: Result Comment: This test is not yet approved or cleared by the [place] FDA. When there are no FDA-approved or cleared tests available, and other criteria are met, FDA can make tests available under an emergency access mechanism called an Emergency Use Authorization (EUA). The EUA for this test is supported by the Pension Manager of Health and Human Service's (HHS's) declaration [...] SARS-CoV-2. Performed By: #### G LU1HR #### [facility] [address] [place] [address] Dr. Joanna PLASCENCIA TEST PT SEND OUTo n 07-27-2021 SENT TO REF LAB 07/27/2021 Normal [facility] Comment on above: Performed By: #### N BOX #### [facility] [address] [place] [address] Dr. Joanna Chen CBC AUTO DIFFon 07-15-2021 BASO # 0.0 103/ul Normal 0.0-0.1 [facility] Comment on above: Performed By: #### G LU1HR #### [facility] [address] [place] [address] Dr. Joanna Chen Basophils/100 WBC (Bld) 0.5 % Normal 0.2-2.0 [facility] Comment on above: Performed By: #### G LU1HR #### [facility] [address] [place] [address] Dr. Joanna Chen EO # 0.0 103/ul Normal 0.0-0.7 [facility] Comment on above: Performed By: #### G LU1HR #### [facility] [address] [place] [address] Dr. Joanna Chen Eosinophils/100 WBC (Bld) 0.5 % Critically low 0.9-7.0 [facility] Comment on above: Performed By: #### G LU1HR #### [facility] [address] [place] [address] Dr. Joanna Chen Erythrocyte distribution width (RBC) [Ratio] 13.3 % Normal 11.0-15.0 [facility] Comment on above: Performed By: #### G LU1HR #### [facility] [address] [place] [address] Dr. Joanna Chen Hematocrit (Bld) [Volume fraction] 39.1 % Normal 36.0-48.0 [facility] Comment on above: Performed By: #### G LU1HR #### [facility] [address] [place] [address] Dr. Joanna Chen Hemoglobin (Bld) [Mass/Vol] 13.0 g/dL Normal 12.0-16.0 [facility] Comment on above: Performed By: #### G LU1HR #### [facility] [address] [place] [address] Dr. Joanna Chen IG # 0.04 10e3/ul Critically high 0.00-0.03 [facility] Comment on above: Performed By: #### G LU1HR #### [facility] [address] [place] [address] Dr. Joanna Chen IG % 0.5 % Normal 0.0-0.5 [facility] Comment on above: Performed By: #### G LU1HR #### [facility] [address] [place] [address] Dr. Joanna Chen LYMPH # 1.8 103/ul Normal 1.2-3.8 [facility] Comment on above: Performed By: #### G LU1HR #### [facility] [address] [place] [address] Dr. Joanna Chen Lymphocytes/100 WBC (Bld) 20.9 % Normal 20.5-60.0 [facility] Comment on above: Performed By: #### G LU1HR #### [facility] [address] [place] [address] Dr. Joanna Chen MANUAL DIFF REQ NO Normal [facility] Comment on above: Performed By: #### G LU1HR #### [facility] [address] [place] [address] Dr. Joanna Chen MCH (RBC) [Entitic mass] 29.5 pg Normal 26.7-34.0 [facility] Comment on above: Performed By: #### G LU1HR #### [facility] [address] [place] [address] Dr. Joanna Chen MCHC (RBC) [Mass/Vol] 33.2 g/dL Normal 29.9-35.2 [facility] Comment on above: Performed By: #### G LU1HR #### [facility] [address] [place] [address] Dr. Joanna Chen MCV (RBC) [Entitic vol] 88.7 fL Normal 81.0-99.0 [facility] Comment on above: Performed By: #### G LU1HR #### [facility] [address] [place] [address] Dr. Joanna Chen MONO # 0.6 103/ul Normal 0.3-0.8 [facility] Comment on above: Performed By: #### G LU1HR #### [facility] [address] [place] [address] Dr. Joanna Chen Monocytes/100 WBC (Bld) 7.2 % Normal 1.7-12.0 [facility] Comment on above: Performed By: #### G LU1HR #### [facility] [address] [place] [address] Dr. Joanna Chen NEUT # 6.1 103/ul Normal 1.4-6.5 [facility] Comment on above: Performed By: #### G LU1HR #### [facility] [address] [place] [address] Dr. Joanna Chen Neutrophils/100 WBC (Bld) 70.4 % Normal 43.0-75.0 [facility] Comment on above: Performed By: #### G LU1HR #### [facility] [address] [place] [address] Dr. Joanna Chen Platelet mean volume (Bld) [Entitic vol] 9.3 fL Critically low 9.5-13.5 [facility] Comment on above: Performed By: #### G LU1HR #### [facility] [address] [place] [address] Dr. Joanna Chen PLT 241 103/ul Normal 150-450 [facility] Comment on above: Performed By: #### G LU1HR #### [facility] [address] [place] [address] Dr. Joanna Chen RBC 4.41 106/ul Normal 4.20-5.40 [facility] Comment on above: Performed By: #### G LU1HR #### [facility] [address] [place] [address] Dr. Joanna Chen WBC 8.7 103/ul Normal 4.0-11.0 [facility] Comment on above: Performed By: #### G LU1HR #### [facility] [address] [place] [address] Dr. Joanna Chen PREG QUANT HCGon 12-01-2021 HCG QUANT 16642 mIU/mL Normal [facility] Comment on above: Performed By: #### C DARRYN, PREGQNT #### [facility] [address] [place] [address] Dr. Joanna Chen HCG RANGE SEE BELOW Normal [facility] Comment on above: Result Comment: 5-50 0-1 WEEK 40-300 1-2 WEEKS 100-1,000 2-3 WEEKS 500-6,000 3-4 WEEKS 5,000-200,000 1-2 MONTHS 10,000-100,000 2-3 MONTHS 3,000-50,000 2ND TRIMESTER 1,000-50,000 3RD TRIMESTER Performed By: #### C MP, PREGQNT #### [facility] [address] [place] [address] Dr. Joanna Chen PROF 14(COMP METB)on 021 Albumin [Mass/Vol] 3.6 g/dL Normal 3.5-5.0 [facility] Comment on above: Performed By: #### C MP, PREGQNT #### [facility] [address] [place] [address] Dr. Joanna Chen Albumin/Globulin [Mass ratio] 1.0 {ratio} Normal [facility] Comment on above: Performed By: #### C MP, PREGQNT #### [facility] [address] [place] [address] Dr. Joanna Chen ALP [Catalytic activity/Vol] 43 U/L Normal 38-126 [facility] Comment on above: Performed By: #### C MP, PREGQNT #### [facility] [address] [place] [address] Dr. Joanna Chen ALT [Catalytic activity/Vol] 21 U/L Normal 9-52 [facility] Comment on above: Performed By: #### C MP, PREGQNT #### [facility] [address] [place] [address] Dr. Joanna Chen Anion gap [Moles/Vol] 11.5 mmol/L Normal [facility] Comment on above: Performed By: #### C MP, PREGQNT #### [facility] [address] [address] [address] Joanna Chen AST [Catalytic activity/Vol] 18 U/L Normal 14-36 [facility] Comment on above: Performed By: #### C MP, PREGQNT #### [facility] [address] [address] [address] Joanna Chen Bilirubin [Mass/Vol] 0.4 mg/dL Normal 0.2-1.3 [facility] Comment on above: Performed By: #### C MP, PREGQNT #### [facility] [address] [address] [address] Joanna Chen Calcium [Mass/Vol] 9.3 mg/dL Normal 8.4-10.2 [facility] Comment on above: Performed By: #### C MP, PREGQNT #### [facility] [address] [place] [address] Dr. Joanna Chen Chloride [Moles/Vol] 102 mmol/L Normal 98-107 [facility] Comment on above: Performed By: #### C MP, PREGQNT #### [facility] [address] [place] [address] Dr. Joanna Chen CO2 [Moles/Vol] 25.5 mmol/L Normal 22.0-30.0 [facility] Comment on above: Performed By: #### C MP, PREGQNT #### [facility] [address] [place] [address] Dr. Joanna Chen Creatinine [Mass/Vol] 0.54 mg/dL Normal 0.52-1.04 [facility] Comment on above: Performed By: #### C MP, PREGQNT #### [facility] [address] [address] [address] Joanna Chen EGFR-AF NORWEGIAN >60 Normal >=60 [facility] Comment on above: Performed By: #### C MP, PREGQNT #### [facility] [address] [place] [address] Dr. Joanna Chen EGFR-NON AF NORWEGIAN >60 Normal >=60 [facility] Comment on above: Performed By: #### C MP, PREGQNT #### [facility] [address] [address] [address] Joanna Chen Globulin (S) [Mass/Vol] 3.7 g/dL Normal [facility] Comment on above: Performed By: #### C MP, PREGQNT #### [facility] [address] [address] [address] Joanna Chen Glucose [Mass/Vol] 90 mg/dL Normal 74-106 [facility] Comment on above: Performed By: #### C MP, PREGQNT #### [facility] [address] [place] [address] Dr. Joanna Chen Potassium [Moles/Vol] 4.0 mmol/L Normal 3.4-5.0 [facility] Comment on above: Performed By: #### C MP, PREGQNT #### [facility] [address] [place] [address] Dr. Joanna Chen Protein [Mass/Vol] 7.3 g/dL Normal 6.1-8.2 [facility] Comment on above: Performed By: #### C MP, PREGQNT #### [facility] [address] [place] [address] Dr. Joanna Chen Sodium [Moles/Vol] 135 mmol/L Critically low 137-145 [facility] Comment on above: Performed By: #### C MP, PREGQNT #### [facility] [address] [place] [address] Dr. Joanna Chen Urea nitrogen [Mass/Vol] 8.0 mg/dL Normal 7.0-17.0 [facility] Comment on above: Performed By: #### C MP, PREGQNT #### [facility] [address] [place] [address] Dr. Joanna Chen Urea nitrogen/Creatinin e [Mass ratio] 14.8 mg/mg Normal [facility] Comment on above: Performed By: #### C MP, PREGQNT #### [facility] [address] [place] [address] Dr. Joanna Chen US PREG TVon 07-15-2021 [...] ORQUIDEA RING Date: 2021-07-15 10:52 Normal [facility] RPR QUANTon 07-06-2021 Rapid Plasma Reagin, Quant Non-Reactive Normal NonRea<1:1 [facility] Comment on above: Performed By: #### G LU1HR #### [facility] [address] [place] [address] Dr. Joanna Chen RUBELLA AB IGGon 07-06-2021 Rubella Antibodies, IgG 2.68 index Normal Immune >0.99 [facility] Comment on above: Result Comment: Non- immune <0.90 Equivocal 0.90 - 0.99 Immune >0.99 Performed By: #### C MP, PREGQNT #### [facility] [address] [address] [address] Joanna Chen HEP B SURFACE ANTIGEN SCREEN on 07-05-2021 HBsAg Screen Negative Normal Negative [facility] Comment on above: Performed By: #### H BSANS #### [facility] [address] [place] [address] Dr. Joanna Chen HEPATITIS C VIRUS AB W/ REFL EX QUANTon 07-05-2021 HCV AB <0.1 Normal 0.0-0.9 [facility] Comment on above: Performed By: #### H BSANS #### [facility] [address] [place] [address] Dr. Joanna Chen Interpretation: Comment Normal [facility] Comment on above: Result Comment: Nega tive Not infected with HCV, unless recent infection is suspected or other evidence exists to indicate HCV infection. Performed By: #### H BSANS #### [facility] [address] [place] [address] Dr. Joanna Chen HIV 1 AND 2 WITH REFLEXon HIV Screen 4th Generation wRfx Non-Reactive Normal Non Reactive [facility] Comment on above: Performed By: #### H IV12 #### [facility] [address] [place] [address] Dr. Joanna Chen CBC AUTO DIFFon 07-04-2021 BASO # 0.1 103/ul Normal 0.0-0.1 [facility] Comment on above: Performed By: #### G LU1HR #### [facility] [address] [place] [address] Dr. Joanna Chen Basophils/100 WBC (Bld) 0.5 % Normal 0.2-2.0 [facility] Comment on above: Performed By: #### G LU1HR #### [facility] [address] [place] [address] Dr. Joanna Chen EO # 0.1 103/ul Normal 0.0-0.7 [facility] Comment on above: Performed By: #### G LU1HR #### [facility] [address] [place] [address] Dr. Joanna Chen Eosinophils/100 WBC (Bld) 0.5 % Critically low 0.9-7.0 [facility] Comment on above: Performed By: #### G LU1HR #### [facility] [address] [place] [address] Dr. Joanna Chen Erythrocyte distribution width (RBC) [Ratio] 13.0 % Normal 11.0-15.0 [facility] Comment on above: Performed By: #### G LU1HR #### [facility] [address] [place] [address] Dr. Joanna Chen Hematocrit (Bld) [Volume fraction] 39.3 % Normal 36.0-48.0 [facility] Comment on above: Performed By: #### G LU1HR #### [facility] [address] [address] [address] Joanna Chen Hemoglobin (Bld) [Mass/Vol] 12.8 g/dL Normal 12.0-16.0 [facility] Comment on above: Performed By: #### G LU1HR #### [facility] [address] [address] [address] Joanna Chen IG # 0.04 10e3/ul Critically high 0.00-0.03 [facility] Comment on above: Performed By: #### G LU1HR #### [facility] [address] [address] [address] Joanna Chen IG % 0.4 % Normal 0.0-0.5 [facility] Comment on above: Performed By: #### G LU1HR #### [facility] [address] [address] [address] Joanna Chen LYMPH # 2.6 103/ul Normal 1.2-3.8 [facility] Comment on above: Performed By: #### G LU1HR #### [facility] [address] [address] [address] Joanna Chen Lymphocytes/100 WBC (Bld) 28.1 % Normal 20.5-60.0 [facility] Comment on above: Performed By: #### G LU1HR #### [facility] [address] [address] [address] Joanna Chen MANUAL DIFF REQ NO Normal [facility] Comment on above: Performed By: #### G LU1HR #### [facility] [address] [address] [address] Joanna Chen MCH (RBC) [Entitic mass] 29.2 pg Normal 26.7-34.0 [facility] Comment on above: Performed By: #### G LU1HR #### [facility] [address] [address] [address] Joanna Chen MCHC (RBC) [Mass/Vol] 32.6 g/dL Normal 29.9-35.2 [facility] Comment on above: Performed By: #### G LU1HR #### [facility] [address] [address] [address] Joanna Chen MCV (RBC) [Entitic vol] 89.7 fL Normal 81.0-99.0 [facility] Comment on above: Performed By: #### G LU1HR #### [facility] [address] [place] [address] Dr. Joanna Chen MONO # 0.8 103/ul Normal 0.3-0.8 [facility] Comment on above: Performed By: #### G LU1HR #### [facility] [address] [place] [address] Dr. Joanna Chen Monocytes/100 WBC (Bld) 8.4 % Normal 1.7-12.0 [facility] Comment on above: Performed By: #### G LU1HR #### [facility] [address] [place] [address] Dr. Joanna Chen NEUT # 5.7 103/ul Normal 1.4-6.5 [facility] Comment on above: Performed By: #### G LU1HR #### [facility] [address] [place] [address] Dr. Joanna Chen Neutrophils/100 WBC (Bld) 62.1 % Normal 43.0-75.0 [facility] Comment on above: Performed By: #### G LU1HR #### [facility] [address] [place] [address] Dr. Joanna Chen Platelet mean volume (Bld) [Entitic vol] 9.6 fL Normal 9.5-13.5 [facility] Comment on above: Performed By: #### G LU1HR #### [facility] [address] [place] [address] Dr. Joanna Chen PLT 277 103/ul Normal 150-450 [facility] Comment on above: Performed By: #### G LU1HR #### [facility] [address] [place] [address] Dr. Joanna Chen RBC 4.38 106/ul Normal 4.20-5.40 [facility] Comment on above: Performed By: #### G LU1HR #### [facility] [address] [address] [address] Joanna Chen WBC 9.2 103/ul Normal 4.0-11.0 [facility] Comment on above: Performed By: #### G LU1HR #### [facility] [address] [address] [address] Joanna Chen CULTURE URINEon 07-04-2021 CULTURE URINE Culture Observations : NO GROWTH. Normal [facility] Comment on above: Performed By: #### U RCX #### [facility] [address] [address] [address] Joanna Chen GLYCOHEMOGLOBIN A1Con 2020 ADA RECOMMENDATION ADA THERAPEUTIC TARG ET 6.0 - 7.0 ACTION SUGGESTED > 7.0 Normal [facility] Comment on above: Performed By: #### A 1C #### [facility] [address] [address] [address] Joanna Chen Glucose [Mass/Vol] 103 mg/dL Normal [facility] Comment on above: Performed By: #### A 1C #### [facility] [address] [address] [address] Joanna Chen HbA1c (Bld) [Mass fraction] 5.2 % Normal <=6.0 [facility] Comment on above: Performed By: #### A 1C #### [facility] [address] [address] [address] Joanna Chen TYPE AND SCREENon 07-04-2021 TYPE AND SCREEN Negative Normal [facility] Comment on above: Performed By: #### C MP, PREGQNT #### [facility] [address] [address] [address] Joanna Chen US PREG TVon 07-03-2021 [...] by: JESSENIA LOPEZ Date: 2021-07-03 07:14 Normal [facility] Coding Summary.on 03-31-2020 Coding Summary. CODING DATE: FINAL [facility] STATUS: Home (Routine DC) PAYOR: Lida ADMIT [...] Michael CphT Date Saved: 03/31/2020 10:26 am [facility] Physician Orderon 03-19-2020 Physician Order [id number] [facility] Ambulatory Clinical Summaryo n 02-05-2020 Ambulatory Clinical Summary {[id number] [facility] [facility] Coding Summary.on 02-04-2020 Coding Summary. CODING DATE: FINAL [facility] DSC STATUS: Home (Routine DC) PAYOR: Lida APC DESCRIPTION 5301 Level 1 Upper GI Procedures ADMIT DX: REASON FOR VISIT DX: R10.13 Epigastric pain FINAL DX: PRINCIPAL: K29.70 Gastritis, unspecified, without bleeding SECONDARY: PYMT PROC APC STAT DESCRIPTION DOCTOR NAME DATE 12482 5301 T Teddy HERNANDEZ MD 01/25/2020 phagogastroduodenoscopy, flexible, transoral; with biopsy, single or multiple 49212 Anesthesia for upper 01/25/2020 gastrointestinal endoscopic procedures, endoscope introduced proximal to duodenum; not otherwise specified NOTE: The code number assigned matches the documented diagnosis and / or procedure in the patient's chart. However, the narrative phrase printed from the coding software may appear abbreviated, or result in slightly different terminology. Revised Coded By: Constance Means Revised Date Saved: 02/04/2020 12:33 pm [facility] IntraOperative Documentson 0 01-29-2020 IntraOperative Documents [id number]#1.00CD:127 [facility] Postoperative Documentson Postoperative Documents [id number]#1.00CD:127 [facility] Main OR Intraoperative Recor don 01-28-2020 Main OR Intraoperative Record IntraOp Document Type FT Summary Primary Physician: Teddy HERNANDEZ MD Finalized Date/Time: 01/28/20 09:11:27 Pt. Name: VERÓNICA RIVERS/Sex: 1995 Female Med Rec #: [id number] Physician: Teddy HERNANDEZ MD Financial #: [id number] Pt. Type: O Room/Bed: / Admit/Disch: 01/25/20 [...] Case Attendee Lorena Singleton RN Role Performed [employer]ed Physical Education Teacher - Primary Time In 01/25/20 10:06:00 Time [...] and tissue Entry 1 Skin Integrity Intact, Welch, Warm, and Skin Abnormality No Dry Outcomes [...] Comments: REPORT GIVEN TO PACU NURSE. SHARATH DUTTAfield marketing lead Administration FT Pre-Care Text: Verifies allergies, administers [...] safely administered during the perioperative period For [facility] please see scanned medication reconcilliation form for [...] 01/25/20 10:25 Zabrina Mota CST 01/28/20 09:11 [facility] Consenton 01-25-2020 Consent [id number]#1.00CD:127 [facility] Consent for Treatmenton 01-13 Consent for Treatment [id number]#1.00CD:127 [facility] Discharge Instructionson Discharge Instructions [id number]#1.00CD:127 [facility] History and Physicalon 01-24 History and Physical [id number]#1.00CD:127 [facility] History and Physical Patient: VERÓNICA RIVERS Age: 24 years Sex: Female : 1995 Associated Diagnoses: None Author: Teddy HERNANDEZ MD Subjective no changes to H & P Normal [facility] Comment on above: Result Comment: Elec tronically Signed By: Teddy HERNANDEZ MD\.br\Date and Time Signed: 01/25/20 09:47 EDT Inpatient Patient Summaryon 01-25-2020 Inpatient Patient Summary [address] [address] [facility] Clinical Discharge Instructions PERSON INFORMATION Name: VERÓNICA RIVERS [facility] SAULT#:[id number] PHYSICIANS Admitting Physician: Teddy HERNANDEZ MD Attending Physician: Teddy HERNANDEZ MD PCP: Marcello Byrd MD Discharge Diagnosis: Antral gastritis Comment: PATIENT EDUCATION INFORMATION Instructions: Medication Leaflets: Follow up: With: Address: When: Teddy HERNANDEZ [address], [address], [place] [id number] Business (1) Within 7 to 10 days MEDICATION LIST Medications to Continue with No Changes Other Medications ethinyl estradiol-norethindrone (Nortrel oral tablet) 1 Tablets By Mouth every day. Comment: Normal [facility] IntraOperative Documentson 0 01-25-2020 IntraOperative Documents [id number]#1.00CD:[address] [facility] IntraOperative Documents [id number]#1.00CD:127 [facility] Main OR PACU I Recordon 01-13 Main OR PACU I Record PACU Phase I Document Type FT Summary Primary Physician: Teddy HERNANDEZ MD Finalized Date/Time: 01/25/20 10:57:36 Pt. Name: VERONICA RIVERSKENTRELL Dent D.O.B./Sex: 1995 Female Med Rec #: [id number] Physician: Teddy HERNANDEZ MD Financial #: [id number] Pt. Type: O Room/Bed: / Admit/Disch: 01/25/20 [...] By: Angela Meza RN 01/25/20 10:[address] [facility] Main OR Preoperative Recordo n 01-25-2020 Main OR Preoperative Record Holding Area Document Type FT Summary Primary Physician: Teddy HERNANDEZ MD Finalized Date/Time: 01/25/20 09:50:47 Pt. Name: VERÓNICA RIVERS/Sex: 1995 Female Med Rec #: [id number] Physician: Teddy HERNANDEZ MD Financial #: [id number] Pt. Type: O Room/Bed: / Admit/Disch: 01/25/20 [...] By: Krystal Valdez RN 01/25/20 09:[address] [facility] Monitor Recordon 01-25-2020 Monitor Record [id number]#1.00CD:[address] [facility] Operative Reporton 0 Operative Report Date of [...] in good condition. Nima Stevens Dictated: 01/25/2020 #[id number] Typed: 01/25/2020 #[id number] cc: Nima Higginbotham M.D. [facility] Comment on above: Result Comment: Elec tronically Signed By: Teddy HERNANDEZ MD.br\Date and Time Signed: 01/25/20 12:21 EDT Patient Education - Texton 0 01-25-2020 Patient Education - Text [facility] Progress Note-Physicianon Progress Note-Physician Patient: VERÓNICA RIVERS [...] All Problems Chronic tonsillitis / SNOMED CT 898179270 / Confirmed Abdominal pain, epigastric / SNOMED CT 756059099 / Confirmed Abdominal pain, left upper quadrant / SNOMED CT 476165067 / Confirmed Loss of appetite / SNOMED CT 766325769 / Confirmed Migraine / SNOMED CT 66793900 / Confirmed Nausea in adult / SNOMED CT 1758686479 / Confirmed Patellofemoral syndrome / SNOMED CT 1782564261 / Confirmed Raynaud's syndrome / SNOMED CT 629861625 / Confirmed, Active Problems (8) Abdominal pain, epigastric Abdominal pain, left upper quadrant Chronic tonsillitis Loss of appetite Migraine Nausea in adult Patellofemoral syndrome Raynaud's syndrome Histories Past Medical History: No active or resolved past medical history items have been selected or recorded. Family History: No family history items have been selected or recorded. Procedure history: Arthroscopy of knee ([id number]). Comments: 12/25/2019 14:10 EDT - Roxanne Morales [...] review: No qualifying data available . Plan [place] [employer] Anesthesiologists (ASA) physical status classification: Class II. Anesthetic Preoperative Plan Anesthesia: Monitored anesthesia care and general anesthesia if required.. Anesthetic plan, risks, benefits, and alternatives discussed with the patient and/or family. Pt. and/or family present and agree to proceed as planned.. Normal [facility] Comment on above: Result Comment: Elec tronically Signed By: Manuel Lyman Jr., DO\.br\Date and Time Signed: 01/25/20 09:57 EDT Vital Signs Date Time Vital Sign Value Performing Clinician Bishop guan 09-20-2023 09:51-0500 Body weight 89.41 kg Dionisio Ruth DO Work Phone: [facility] 09-20-2023 09:51-0500 Diastolic blood pressure 70 mm[Hg] Dionisio Ruth DO Work Phone: [facility] 09-20-2023 09:51-0500 Systolic blood pressure 114 mm[Hg] Dionisio Ruth DO Work Phone: [facility] Encounters Encounter Date Encounter Type Care Provider Facility Start: 11-15-2023 End: 11-15-2023 ambulatory DIOINSIO RUTH Not Available Start: 11-01-2023 End: 11-01-2023 ambulatory DIONISIO RUTH Not Available Start: 10-18-2023 End: 10-18-2023 ambulatory DIONISIO RUTH Not Available Start: 10-04-2023 End: 10-04-2023 ambulatory DIONISIO MIRANDA Not Available Start: 09-20-2023 End: 09-20-2023 ambulatory DIONISIO MIRANDA Not Available Start: 09-20-2023 End: 09-20-2023 flow sheet Dionisio Miranda DO Work Phone: [facility] Comment on above: Second trimester [...] PM EST Routine [facility] [address] [place] [address] Dionisio Miranda, DO [address] [place] [address] [facility] Payers Date Payer Category Payer Unknown [employer] [id number] 2022-Present [phone] [address] [address] [place] [address] [id number] 2022 Unknown [id number] 1995 Unknown [id number] 2.16.840.1.730939.3.579.2.59 3 1995 Unknown [id number] 2.16.840.1.789887.3.579.2.59 3 1995 Unknown [id number] 2.16.840.1.744550.3.579.2.59 3 1995 Unknown [id number] 2.16.840.1.065946.3.579.2.59 3 1995 Unknown [id number] 2.16.840.1.152293.3.579.2.59 3 1995 Unknown [id number] 2.16.840.1.722903.3.579.2.59 3 1995 Unknown [id number] 2.16.840.1.891199.3.579.2.59 3 1995 Unknown [id number] 2.16.840.1.930993.3.579.2.59 3 1995 Unknown [id number] 2.16.840.1.712659.3.579.2.59 3 1997 Unknown [id number] 2.16.840.1.514904.3.579.2.59 3 1995 Unknown [id number] 2.16.840.1.194573.3.579.2.59 3 1995 Unknown [id number] 2.16.840.1.677356.3.579.2.59 3 1995 Unknown [id number] 2.16.840.1.560185.3.579.2.59 3 1995 Unknown [id number] 2.16.840.1.616585.3.579.2.12 59 1995 Unknown [id number] 2.16.840.1.875821.3.579.2.12 59 1995 Unknown [id number] 2.16.840.1.563285.3.579.2.12 59 1995 Unknown [id number] 2.16.840.1.051710.3.579.2.12 59 1995 Unknown [id number] 2.16.840.1.112330.3.579.2.12 59 1995 Unknown [id number] 2.16.840.1.968391.3.579.2.12 59 1995 Unknown [id number] 2.16.840.1.855625.3.579.2.12 59 1959 Self-pay 1959 Unknown [id number] 1959 Unknown [id number] 1959 Unknown [id number] Unknown [id number] 2.16.840.1.743636.3.579.2.59 3 Social History Date Type Detail Facility Tobacco smoking stat [facility] Tobacco smoking consumption unknown [facility] Start: 04-06-2023 [facility] Start: 1995 Sex Assigned At Female [facility] Start: 04-20-2023 Gender identity Identifies as female gender (finding) [facility] Start: 04-20-2023 Sexual orientation Heterosexual (fin ding) [facility] History of Present illness Narrative 09-20-2023 Linda Myers LPN - 09/20/2023 9:40 AM EST Note Date & Type Note Facility 09-20-2023 History of Presen t illness Narrative Reason for Appointment: Patient ID: Verónica Decker is a 28 y.o. female who presents for Routine Visit Patient presents today for Return OB appointment. Current Medications: has a current medication list which includes the following prescription(s): magnesium and vit w/du-yewxhcpck-sc. Medical History: Active Ambulatory Problems Diagnosis Date [...] nursing note reviewed. Exam conducted with a qa software tester present. Vitals: There is no height or [...] Dionisio Miranda DO documented in this encounter [facility] Clinical Note 02-01-2022 Note Date & Type Note Facility 02-01-2022 Note [facility] [place], [place] NAME: BRIANNE VERÓNICA Dent DATE OF : MEDICAL REC#: [id number] CAKE ICER AND PACKER: ISMAEL LEI ADMIT DATE: 02/01/2022 07:59:00 GAME ARTIST DATE: 02/02/2022 22:13 DICTATING PHYSICIAN: DIONISIO MIRANDA [...] Spinal with Duramorph. SURGEON: Dionisio Miranda D.O. ADMINISTRATION CLERK: THERSEE Abbasi URINE OUTPUT: Yellow and clear. BLOOD [...] patient's uterus and extended laterally digitally. The was then delivered atraumatically after the bladder [...] by: DR DIONISIO MIRANDA . 02/04/2022 10:17:00 [facility] Discharge summary note 02-01-2022 Note Date [...] by: DR DIONISIO MIRANDA . 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 denies significant n/v, and is (more content not included)... Additional Source Comments INFORMATION SOURCE (unrecogn ized section and content) DATE CREATED AUTHOR 03/31/2020 [facility] [facility] DATE CREATED AUTHOR AUTHOR'S ORGANIZ ATION 06/07/2022 [facility] DATE CREATED AUTHOR AUTHOR'S ORGANIZ ATION 11/16/2023 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 [employer] [facility]. provides no warranty or guarantee of the accuracy or completeness of information in this document.
== END 2023-11-30 20:15 | disposition home or self-care (01) ==
LOC: LAB 20:14
PROVIDERS: PCP Family Medicine; Visit Provider Obstetrics & Gynecology
DX: Z34.93 Encounter for supervision of normal pregnancy, unspecified, third trimester (principal)
CPT/HCPCS: 87081

== ENCOUNTER 2023-12-21 10:30 | Inpatient (IN) | payer OTHER, SELFPAY ==
[2023-12-21] VITALS (39 sets, daily range): BP systolic 79–122; BP diastolic 39–83; PULSE 61–116; TEMP 35.6–36.6; O2SAT 96–100
[2023-12-21] MEDS: 0.9 % SODIUM CHLORIDE 1,000 ML 1000 ML IV ×2 (10:50→11:50)
--- OUTSIDE RECORDS SUMMARY | 2023-12-21 10:50 | XMS_ITS | CCD ---
Author Organization [facility] Care Team Providers Care Design Agent Name Role Phone RUTH, DR NICHOLE Consulting [...] Unavailable ZIEBER, DR ORQUIDEA Marie Consulting Unavailable JAVA, DR JESSENIA Cote Consulting Unavailable REQUEST, DR [...] Procedure Practitioner Unavailab BRIANNA Garcia Consulting Unavailable ERIKAOSIMISHAANBRIANNA Procedure Practitioner Unavaila kendrick MIRANDA, DR NICHOLE [...] Carson VALLE, Marcello Altamirano Primary Care Provider [phone] DIONISIO MIRANDA Attending Unavailable RUTH, DIONISIO Attending [...] 60 tablet 11 08/23/2023 08/22/2024 Active Vit w/Jm-Dqzfiiabw-BT (PNV PO) (2 sources) take 1 tablet by mouth in the morning Vit w/Eu-Vneuanomv-UA (PNV PO) Take 1 tablet by mouth [...] UA Negative Negative - 4(70) +++ mg/dL [facility] Blood, UA Negative Negative - 50 Zeus/mcL [facility] Clarity, UA Clear [facility] Color, UA Yellow [facility] Glucose, UA Negative Negative - 1999(110) ++++ mg/dL [facility] Interpretation and review of laboratory results Abnormal [facility] Ketones, UA Negative Negative - 160(16) ++++ mg/dL [facility] Leukocytes, UA Trace Negative - 500+++ Jing/mcL [facility] Nitrite, UA Negative Negative - Positive [facility] pH, UA 7.0 5 - 9 [facility] Protein, UA Negative Negative - 1999(20) ++++ mg/dL [facility] Spec Grav, UA 1.010 1 - 1.03 [facility] Urobilinogen, UA 0.2 0.2 - 12 mg/dL [facility] PAP ACOG PANEL 2: 23 to 31on 06-02-2022 . . Normal [facility] Comment on above: Performed By: #### G LU1HR #### [facility] [address] [place], [place] [address] Dr. Joanna Chen Age Gdln ACOG Testing 21-29 Normal [facility] Comment on above: Performed By: #### G LU1HR #### [facility] [address] [address] [address] Joanna Chen DIAGNOSIS: Comment Normal [facility] Comment on above: Result Comment: NEGA TIVE FOR INTRAEPITHELIAL LESION OR MALIGNANCY. Performed By: #### G LU1HR #### [facility] [address] [place] [address] Dr. Joanna Chen Methodology: Comment Normal [facility] Comment on above: Result Comment: This liquid based ThinPrep(R) pap test was screened with the use of an image guided system. Performed By: #### G LU1HR #### [facility] [address] [place] [address] Dr. Joanna Chen Note: Comment Normal [facility] Comment on above: Result Comment: The Pap smear is a screening test designed to aid in the detection of premalignant and malignant conditions of the uterine cervix. It is not a diagnostic procedure and should not be used as the sole means of detecting cervical cancer. Both false-positive and false-negative reports do occur. . Performed By: #### G LU1HR #### [facility] [address] [place] [address] Dr. Joanna Chen Performed by: Comment Normal [facility] Comment on above: Result Comment: Serena Bassett, Medical Accounts Receivable Specialist (ASCP) Performed By: #### G LU1HR #### [facility] [address] [place] [address] Dr. Joanna Chen Reflex Criteria: Comment Normal [facility] Comment on above: Result Comment: The HPV DNA reflex criteria were not met with this specimen result therefore, no HPV testing was performed. . Performed By: #### G LU1HR #### [facility] [address] [place] [address] Dr. Joanna Chen Specimen adequacy: Comment Normal [facility] Comment on above: Result Comment: Sati sfactory for evaluation. Endocervical and/or squamous metaplastic cells (endocervical component) are present. Performed By: #### G LU1HR #### [facility] [address] [place] [address] Dr. Joanna Chen CBC AUTO DIFFon 02-02-2022 BASO # 0.1 103/ul Normal 0.0-0.1 [facility] Comment on above: Performed By: #### H BSANS #### [facility] [address] [place] [address] Dr. Joanna Chen Basophils/100 WBC (Bld) 0.3 % Normal 0.2-2.0 [facility] Comment on above: Performed By: #### H BSANS #### [facility] [address] [place] [address] Dr. Joanna Chen EO # 0.1 103/ul Normal 0.0-0.7 [facility] Comment on above: Performed By: #### H BSANS #### [facility] [address] [place] [address] Dr. Joanna Chen Eosinophils/100 WBC (Bld) 0.4 % Critically low 0.9-7.0 [facility] Comment on above: Performed By: #### H BSANS #### [facility] [address] [place] [address] Dr. Joanna Chen Erythrocyte distribution width (RBC) [Ratio] 13.8 % Normal 11.0-15.0 [facility] Comment on above: Performed By: #### H BSANS #### [facility] [address] [place] [address] Dr. Joanna Chen Hematocrit (Bld) [Volume fraction] 31.7 % Critically low 36.0-48.0 [facility] Comment on above: Performed By: #### H BSANS #### [facility] [address] [place] [address] Dr. Joanna Chen Hemoglobin (Bld) [Mass/Vol] 10.0 g/dL Critically low 12.0-16.0 [facility] Comment on above: Performed By: #### H BSANS #### [facility] [address] [place] [address] Dr. Joanna Chen IG # 0.15 10e3/ul Critically high 0.00-0.03 [facility] Comment on above: Performed By: #### H BSANS #### [facility] [address] [place] [address] Dr. Joanna Chen IG % 0.9 % Critically high 0.0-0.5 [facility] Comment on above: Performed By: #### H BSANS #### [facility] [address] [place] [address] Dr. Joanna Chen LYMPH # 1.7 103/ul Normal 1.2-3.8 [facility] Comment on above: Performed By: #### H BSANS #### [facility] [address] [place] [address] Dr. Joanna Chen Lymphocytes/100 WBC (Bld) 10.5 % Critically low 20.5-60.0 [facility] Comment on above: Performed By: #### H BSANS #### [facility] [address] [place] [address] Dr. Joanna Chen MANUAL DIFF REQ NO Normal [facility] Comment on above: Performed By: #### H BSANS #### [facility] [address] [place] [address] Dr. Joanna Chen MCH (RBC) [Entitic mass] 29.2 pg Normal 26.7-34.0 [facility] Comment on above: Performed By: #### H BSANS #### [facility] [address] [place] [address] Dr. Joanna Chen MCHC (RBC) [Mass/Vol] 31.5 g/dL Normal 29.9-35.2 [facility] Comment on above: Performed By: #### H BSANS #### [facility] [address] [place] [address] Dr. Joanna Chen MCV (RBC) [Entitic vol] 92.4 fL Normal 81.0-99.0 [facility] Comment on above: Performed By: #### H BSANS #### [facility] [address] [place] [address] Dr. Joanna Chen MONO # 1.2 103/ul Critically high 0.3-0.8 [facility] Comment on above: Performed By: #### H BSANS #### [facility] [address] [place] [address] Dr. Joanna Chen Monocytes/100 WBC (Bld) 7.2 % Normal 1.7-12.0 [facility] Comment on above: Performed By: #### H BSANS #### [facility] [address] [place] [address] Dr. Joanna Chen NEUT # 13.0 103/ul Critically high 1.4-6.5 [facility] Comment on above: Performed By: #### H BSANS #### [facility] [address] [place] [address] Dr. Joanna Chen Neutrophils/100 WBC (Bld) 80.7 % Critically high 43.0-75.0 [facility] Comment on above: Performed By: #### H BSANS #### [facility] [address] [place] [address] Dr. Joanna Chen Platelet mean volume (Bld) [Entitic vol] 10.0 fL Normal 9.5-13.5 [facility] Comment on above: Performed By: #### H BSANS #### [facility] [address] [place] [address] Dr. Joanna Chen PLT 181 103/ul Normal 150-450 [facility] Comment on above: Performed By: #### H BSANS #### [facility] [address] [place] [address] Dr. Joanna Chen RBC 3.43 106/ul Critically low 4.20-5.40 [facility] Comment on above: Performed By: #### H BSANS #### [facility] [address] [place] [address] Dr. Joanna Chen WBC 16.1 103/ul Critically high 4.0-11.0 [facility] Comment on above: Performed By: #### H BSANS #### [facility] [address] [place] [address] Dr. Joanna Chen CBC AUTO DIFFon 02-01-2022 BASO # 0.0 103/ul Normal 0.0-0.1 [facility] Comment on above: Performed By: #### G LU1HR #### [facility] [address] [place] [address] Dr. Joanna Chen Basophils/100 WBC (Bld) 0.2 % Normal 0.2-2.0 [facility] Comment on above: Performed By: #### G LU1HR #### [facility] [address] [place] [address] [address] Joanna Chen EO # 0.0 103/ul Normal 0.0-0.7 [facility] Comment on above: Performed By: #### G LU1HR #### [facility] [address] [address] [address] Joanna Chen Eosinophils/100 WBC (Bld) 0.2 % Critically low 0.9-7.0 [facility] Comment on above: Performed By: #### G LU1HR #### [facility] [address] [place] [address] Dr. Joanna Chen Erythrocyte distribution width (RBC) [Ratio] 13.8 % Normal 11.0-15.0 [facility] Comment on above: Performed By: #### G LU1HR #### [facility] [address] [place] [address] Dr. Joanna Chen Hematocrit (Bld) [Volume fraction] 36.2 % Normal 36.0-48.0 [facility] Comment on above: Performed By: #### G LU1HR #### [facility] [address] [place] [address] Dr. Joanna Chen Hemoglobin (Bld) [Mass/Vol] 11.8 g/dL Critically low 12.0-16.0 [facility] Comment on above: Performed By: #### G LU1HR #### [facility] [address] [place] [address] Dr. Joanna Chen IG # 0.14 10e3/ul Critically high 0.00-0.03 [facility] Comment on above: Performed By: #### G LU1HR #### [facility] [address] [place] [address] Dr. Joanna Chen IG % 1.0 % Critically high 0.0-0.5 [facility] Comment on above: Performed By: #### G LU1HR #### [facility] [address] [place] [address] [address] Joanna Chen LYMPH # 2.0 103/ul Normal 1.2-3.8 [facility] Comment on above: Performed By: #### G LU1HR #### [facility] [address] [place] [address] Dr. Joanna Chen Lymphocytes/100 WBC (Bld) 14.5 % Critically low 20.5-60.0 [facility] Comment on above: Performed By: #### G LU1HR #### [facility] [address] [place] [address] Dr. Joanna Chen MANUAL DIFF REQ NO Normal [facility] Comment on above: Performed By: #### G LU1HR #### [facility] [address] [place] [address] Dr. Joanna Chen MCH (RBC) [Entitic mass] 29.2 pg Normal 26.7-34.0 [facility] Comment on above: Performed By: #### G LU1HR #### [facility] [address] [place] [address] Dr. Joanna Chen MCHC (RBC) [Mass/Vol] 32.6 g/dL Normal 29.9-35.2 [facility] Comment on above: Performed By: #### G LU1HR #### [facility] [address] [place] [address] Dr. Joanna Chen MCV (RBC) [Entitic vol] 89.6 fL Normal 81.0-99.0 [facility] Comment on above: Performed By: #### G LU1HR #### [facility] [address] [place] [address] Dr. Joanna Chen MONO # 1.0 103/ul Critically high 0.3-0.8 [facility] Comment on above: Performed By: #### G LU1HR #### [facility] [address] [place] [address] Dr. Joanna Chen Monocytes/100 WBC (Bld) 7.2 % Normal 1.7-12.0 [facility] Comment on above: Performed By: #### G LU1HR #### [facility] [address] [place] [address] [address] Joanna Chen NEUT # 10.6 103/ul Critically high 1.4-6.5 [facility] Comment on above: Performed By: #### G LU1HR #### [facility] [address] [place] [address] Dr. Joanna Chen Neutrophils/100 WBC (Bld) 76.9 % Critically high 43.0-75.0 [facility] Comment on above: Performed By: #### G LU1HR #### [facility] [address] [place] [address] Dr. Joanna Chen Platelet mean volume (Bld) [Entitic vol] 9.7 fL Normal 9.5-13.5 [facility] Comment on above: Performed By: #### G LU1HR #### [facility] [address] [place] [address] Dr. Joanna Chen PLT 203 103/ul Normal 150-450 [facility] Comment on above: Performed By: #### G LU1HR #### [facility] [address] [place] [address] Dr. Joanna Chen RBC 4.04 106/ul Critically low 4.20-5.40 [facility] Comment on above: Performed By: #### G LU1HR #### [facility] [address] [place] [address] Dr. Joanna Chen WBC 13.8 103/ul Critically high 4.0-11.0 [facility] Comment on above: Performed By: #### G LU1HR #### [facility] [address] [place] [address] Dr. Joanna Chen [facility] SARS-CoV-2 (COVID-19) RNA MANINDER+probe Ql (Unsp spec) Not detected Normal NOT DETECTED [facility] Comment on above: Result Comment: When [...] for this test is supported by the [place] of Health and Human Service's declaration that [...] used). Performed By: #### G LU1HR #### [facility] [address] [place] [address] Dr. Joanna Chen DRUG SCREEN RAPID (URINE)on 02-01-2022 AMP Negative Normal NEGATIVE [facility] Comment on above: Performed By: #### H BSANS #### [facility] [address] [place] [address] Dr. Joanna Chen BAR Negative Normal NEGATIVE [facility] Comment on above: Performed By: #### H BSANS #### [facility] [address] [place] [address] Dr. Joanna Chen BUP Negative Normal NEGATIVE [facility] Comment on above: Performed By: #### H BSANS #### [facility] [address] [place] [address] Dr. Joanna Chen BZO Negative Normal NEGATIVE [facility] Comment on above: Performed By: #### H BSANS #### [facility] [address] [place] [address] Dr. Joanna Chen HALLE Negative Normal NEGATIVE [facility] Comment on above: Performed By: #### H BSANS #### [facility] [address] [place] [address] Dr. Joanna Chen CUT-OFFS SEE BELOW Normal [facility] Comment on above: Result Comment: AMP [...] ng/mL Performed By: #### H BSANS #### [facility] [address] [place] [address] Dr. Joanna Chen DRUG CUT HEADER DRUG CLASS TEST SYST EM CUT-OFF CONCENTRATIONS ARE FOLLOWS: Normal [facility] Comment on above: Performed By: #### H BSANS #### [facility] [address] [place] [address] Dr. Joanna Chen mAMP Negative Normal NEGATIVE [facility] Comment on above: Performed By: #### H BSANS #### [facility] [address] [place] [address] Dr. Joanna Chen MTD Negative Normal NEGATIVE [facility] Comment on above: Performed By: #### H BSANS #### [facility] [address] [place] [address] Dr. Joanna Chen OPI Negative Normal NEGATIVE [facility] Comment on above: Performed By: #### H BSANS #### [facility] [address] [place] [address] Dr. Joanna Chen OXY Negative Normal NEGATIVE [facility] Comment on above: Performed By: #### H BSANS #### [facility] [address] [place] [address] Dr. Joanna Chen PCP Negative Normal NEGATIVE [facility] Comment on above: Performed By: #### H BSANS #### [facility] [address] [place] [address] Dr. Joanna Chen PPX Negative Normal NEGATIVE [facility] Comment on above: Performed By: #### H BSANS #### [facility] [address] [place] [address] Dr. Joanna Chen TCA Negative Normal NEGATIVE [facility] Comment on above: Performed By: #### H BSANS #### [facility] [address] [place] [address] [address] Joanna Chen THC Negative Normal NEGATIVE [facility] Comment on above: Performed By: #### H BSANS #### [facility] [address] [address] [address] Joanna Chen TYPE AND SCREENon 02-01-2022 TYPE AND SCREEN Negative Normal [facility] Comment on above: Performed By: #### C MP, PREGQNT #### [facility] [address] [place] [address] Dr. Joanna Chen UA (CLEAN/CATCH) PLASTER PATTERNMAKER/MICRO I F IND.on 02-01-2022 Bilirubin Ql (U) Negative Normal NEGATIVE [facility] Comment on above: Performed By: #### U ACSIND, UMICRO #### [facility] [address] [place] [address] Dr. Joanna Chen Clarity (U) CLEAR Normal CLEAR [facility] Comment on above: Performed By: #### U ACSIND, ICRO #### [facility] [address] [place] [address] Dr. Joanna Chen Color (U) LT. YELLOW Normal YELLOW [facility] Comment on above: Performed By: #### U ACSIND, UMICRO #### [facility] [address] [place] [address] Dr. Joanna Chen Glucose Ql (U) Negative Normal NEGATIVE [facility] Comment on above: Performed By: #### U ACSIND, UMICRO #### [facility] [address] [place] [address] Dr. Joanna Chen Hemoglobin Ql (U) Negative Normal NEGATIVE [facility] Comment on above: Performed By: #### U ACSIND, UMICRO #### [facility] [address] [place] [address] Dr. Joanna Chen Ketones Ql (U) Negative Normal NEGATIVE [facility] Comment on above: Performed By: #### U ACSIND, UMICRO #### [facility] [address] [place] [address] Dr. Joanna Chen LEUKOCYTES TRACE Abnormal NEGATIVE [facility] Comment on above: Performed By: #### U ACSIND, UMICRO #### [facility] [address] [place] [address] Dr. Joanna Chen Nitrite Ql (U) Negative Normal NEGATIVE [facility] Comment on above: Performed By: #### U ACSIND, UMICRO #### [facility] [address] [place] [address] Dr. Joanna Chen pH (U) 7.0 [pH] Normal 5-9 [facility] Comment on above: Performed By: #### U ACSIND, UMICRO #### [facility] [address] [place] [address] Dr. Joanna Chen SPEC GRAVITY 1.010 Normal 1.005-<=1.0 25 [facility] Comment on above: Performed By: #### U ACSIND, UMICRO #### [facility] [address] [place] [address] Dr. Joanna Chen UA PROTEIN Negative Normal NEGATIVE/ TRACE [facility] Comment on above: Performed By: #### U ACSIND, UMICRO #### [facility] [address] [place] [address] Dr. Joanna Chen UR MICRO IND INDICATED Normal [facility] Comment on above: Performed By: #### U ACSIND, UMICRO #### [facility] [address] [place] [address] Dr. Joanna Chen Urobilinogen Qn (U) 0.2 {Frank'U}/dL Normal 0.2 - 1.0 [facility] Comment on above: Performed By: #### U ACSIND, UMICRO #### [facility] [address] [address] [address] Joanna Chen URINE MICROSCOPIC ONLYon BACTERIA NONE SEEN Normal NONE SEEN [facility] Comment on above: Performed By: #### U ACSIND, UMICRO #### [facility] [address] [place] [address] Dr. Joanna Chen Bacteria identified Cx Nom (U) NOT INDICATED Normal [facility] Comment on above: Performed By: #### U ACSIND, UMICRO #### [facility] [address] [address] [address] Joanna Chen CAST NONE SEEN Normal NONE SEEN [facility] Comment on above: Performed By: #### U ACSIND, UMICRO #### [facility] [address] [address] [address] Joanna Chen Crystals LM Nom (Urine sed) NONE SEEN Normal NONE SEEN [facility] Comment on above: Performed By: #### U ACSIND, UMICRO #### [facility] [address] [address] [address] Joanna Chen Epithelial cells LM Ql (Urine sed) FEW Abnormal NONE SEEN /RARE [facility] Comment on above: Performed By: #### U ACSIND, UMICRO #### [facility] [address] [place] [address] Dr. Joanna Chen MUCOUS NONE SEEN Normal NONE SEEN [facility] Comment on above: Performed By: #### U ACSIND, UMICRO #### [facility] [address] [address] [address] Joanna Chen RBC NONE SEEN Abnormal 0-2 [facility] Comment on above: Performed By: #### U ACSIND, UMICRO #### [facility] [address] [place] [address] Dr. Joanna Chen WBC 0-2 Abnormal NONE SEEN [facility] Comment on above: Performed By: #### U ACSIND, UMICRO #### [facility] [address] [place] [address] Dr. Joanna Chen US PREG BIOPHY W [...] by: ORQUIDEA RING Date: 2022-02-01 12:34 Normal [facility] GROUP B STREP CULTUREon S. agalactiae Ag Ql (Unsp spec) Culture Observations: NEGATIVE FOR GROUP B STREPTOCOCCUS. Normal [facility] Comment on above: Performed By: #### C MP, PREGQNT #### [facility] [address] [place] [address] Dr. Joanna Chen US PREG REEVAL ABNon [...] ORQUIDEA RING Date: 2021-12-21 16:20 Normal [facility] GLUCOSE - 1HRon 10-30-2021 Glucose [Mass/Vol] 82 mg/dL Normal 74-106 [facility] Comment on above: Performed By: #### G LU1HR #### [facility] [address] [place] [address] Dr. Joanna Chen HEMOGRAM AND PLATELon 2021 Hematocrit (Bld) [Volume fraction] 35.0 % Critically low 36.0-48.0 [facility] Comment on above: Performed By: #### H BSANS #### [facility] [address] [place] [address] Dr. Joanna Chen Hemoglobin (Bld) [Mass/Vol] 11.4 g/dL Critically low 12.0-16.0 [facility] Comment on above: Performed By: #### H BSANS #### [facility] [address] [address] [address] Joanna Chen MCH (RBC) [Entitic mass] 30.2 pg Normal 26.7-34.0 [facility] Comment on above: Performed By: #### H BSANS #### [facility] [address] [place] [address] Dr. Joanna Chen MCHC (RBC) [Mass/Vol] 32.6 g/dL Normal 29.9-35.2 [facility] Comment on above: Performed By: #### H BSANS #### [facility] [address] [place] [address] Dr. Joanna Chen MCV (RBC) [Entitic vol] 92.6 fL Normal 81.0-99.0 [facility] Comment on above: Performed By: #### H BSANS #### [facility] [address] [place] [address] Dr. Joanna Chen PLT 267 103/ul Normal 150-450 [facility] Comment on above: Performed By: #### H BSANS #### [facility] [address] [place] [address] Dr. Joanna Chen RBC 3.78 106/ul Critically low 4.20-5.40 [facility] Comment on above: Performed By: #### H BSANS #### [facility] [address] [place] [address] Dr. Joanna Chen WBC 12.0 103/ul Critically high 4.0-11.0 [facility] Comment on above: Performed By: #### H BSANS #### [facility] [address] [place] [address] Dr. Joanna Chen CHLAMYDIA/GONOCOCCUS MANINDER ( AB/URINE/PAPon 10-21-2021 Chlamydia trachomatis, MANINDER Negative Normal Negative [facility] Comment on above: Performed By: #### G LU1HR #### [facility] [address] [place] [address] Dr. Joanna Chen Neisseria gonorrhoeae, MANINDER Negative Normal Negative [facility] Comment on above: Performed By: #### G LU1HR #### [facility] [address] [address] [address] Joanna Chen VAGINITIS/VAGINOSIS DNA PROB Cheng 10-20-2021 Earnestine species Negative Normal Negative [facility] Comment on above: Performed By: #### H BSANS #### [facility] [address] [address] [address] Joanna Chen Gardnerella vaginalis Positive Abnormal Negative [facility] Comment on above: Performed By: #### H BSANS #### [facility] [address] [address] [address] Joanna Chen Trichomonas vaginalis Negative Normal Negative [facility] Comment on above: Performed By: #### H BSANS #### [facility] [address] [address] [address] Joanna Chen US PREG INCOMPLETE ANATOMYon 10-19-2021 PREG INCOMPLETE ANATOMY EXAMINATION: US PREG INCOMPLETE ANATOMY HISTORY: screening COMPARISON: 10/01/2021 FINDINGS: presentation: Cephalic Heart rate: 141 bpm Normal anatomy: Right ventricular outflow track, left ventricular outflow tract Other: Single cardiac focus again noted IMPRESSION: Stable single cardiac focus, nonspecific Electronically authenticated by: JESSENIA LOPEZ Date: 2021-10-19 18:33 Normal [facility] US PREG ANATOMY SINGLEon US PREG [...] (44% by ultrasound, 13% by expected); FL/AC: 0.166299 FL/BPD: 0.845943 HC/AC: 1.191600 GESTATIONAL AGE: Age by EDC: 20 weeks, [...] ORQUIDEA RING Date: 2021-10-01 17:16 Normal [facility] Covid-19 PCR (CVDTBH)on 07-15 SARS-CoV-2 (COVID-19) RNA MANINDER+probe Ql (Unsp spec) Not detected Normal NOT DETECTED [facility] Comment on above: Result Comment: This test is not yet approved or cleared by the [place] FDA. When there are no FDA-approved or cleared tests available, and other criteria are met, FDA can make tests available under an emergency access mechanism called an Emergency Use Authorization (EUA). The EUA for this test is supported by the Chief Of Internal Medicine of Health and Human Service's (HHS's) declaration [...] consistent with SARS-CoV-2. Performed By: #### G LU1 #### [facility] [address] [place] [address] Dr. Joanna SIMON BOX TEST PT SEND OUTo n 07-27-2021 SENT TO REF LAB 07/27/2021 Normal [facility] Comment on above: Performed By: #### N BOX #### [facility] [address] [place] [address] Dr. Joanna Chen CBC AUTO DIFFon 07-15-2021 BASO # 0.0 103/ul Normal 0.0-0.1 [facility] Comment on above: Performed By: #### G LU1HR #### [facility] [address] [place] [address] Dr. Joanna Chen Basophils/100 WBC (Bld) 0.5 % Normal 0.2-2.0 [facility] Comment on above: Performed By: #### G LU1HR #### [facility] [address] [place] [address] Dr. Joanna Chen EO # 0.0 103/ul Normal 0.0-0.7 [facility] Comment on above: Performed By: #### G LU1HR #### [facility] [address] [place] [address] Dr. Joanna Chen Eosinophils/100 WBC (Bld) 0.5 % Critically low 0.9-7.0 [facility] Comment on above: Performed By: #### G LU1HR #### [facility] [address] [place] [address] Dr. Joanna Chen Erythrocyte distribution width (RBC) [Ratio] 13.3 % Normal 11.0-15.0 [facility] Comment on above: Performed By: #### G LU1HR #### [facility] [address] [place] [address] Dr. Joanna Chen Hematocrit (Bld) [Volume fraction] 39.1 % Normal 36.0-48.0 [facility] Comment on above: Performed By: #### G LU1HR #### [facility] [address] [place] [address] Dr. Joanna Chen Hemoglobin (Bld) [Mass/Vol] 13.0 g/dL Normal 12.0-16.0 [facility] Comment on above: Performed By: #### G LU1HR #### [facility] [address] [address] [address] Joanna Chen IG # 0.04 10e3/ul Critically high 0.00-0.03 [facility] Comment on above: Performed By: #### G LU1HR #### [facility] [address] [address] [address] Joanna Chen IG % 0.5 % Normal 0.0-0.5 [facility] Comment on above: Performed By: #### G LU1HR #### [facility] [address] [address] [address] Joanna Chen LYMPH # 1.8 103/ul Normal 1.2-3.8 [facility] Comment on above: Performed By: #### G LU1HR #### [facility] [address] [place] [address] Dr. Joanna Chen Lymphocytes/100 WBC (Bld) 20.9 % Normal 20.5-60.0 [facility] Comment on above: Performed By: #### G LU1HR #### [facility] [address] [place] [address] Dr. Joanna Chen MANUAL DIFF REQ NO Normal [facility] Comment on above: Performed By: #### G LU1HR #### [facility] [address] [place] [address] Dr. Joanna Chen MCH (RBC) [Entitic mass] 29.5 pg Normal 26.7-34.0 [facility] Comment on above: Performed By: #### G LU1HR #### [facility] [address] [place] [address] Dr. Joanna Chen MCHC (RBC) [Mass/Vol] 33.2 g/dL Normal 29.9-35.2 [facility] Comment on above: Performed By: #### G LU1HR #### [facility] [address] [place] [address] Dr. Joanna Chen MCV (RBC) [Entitic vol] 88.7 fL Normal 81.0-99.0 [facility] Comment on above: Performed By: #### G LU1HR #### [facility] [address] [address] [address] Joanna Chen MONO # 0.6 103/ul Normal 0.3-0.8 [facility] Comment on above: Performed By: #### G LU1HR #### [facility] [address] [place] [address] Dr. Joanna Chen Monocytes/100 WBC (Bld) 7.2 % Normal 1.7-12.0 [facility] Comment on above: Performed By: #### G LU1HR #### [facility] [address] [place] [address] Dr. Joanna Chen NEUT # 6.1 103/ul Normal 1.4-6.5 [facility] Comment on above: Performed By: #### G LU1HR #### [facility] [address] [place] [address] Dr. Joanna Chen Neutrophils/100 WBC (Bld) 70.4 % Normal 43.0-75.0 [facility] Comment on above: Performed By: #### G LU1HR #### [facility] [address] [place] [address] Dr. Joanna Chen Platelet mean volume (Bld) [Entitic vol] 9.3 fL Critically low 9.5-13.5 [facility] Comment on above: Performed By: #### G LU1HR #### [facility] [address] [place] [address] Dr. Joanna Chen PLT 241 103/ul Normal 150-450 [facility] Comment on above: Performed By: #### G LU1HR #### [facility] [address] [place] [address] Dr. Joanna Chen RBC 4.41 106/ul Normal 4.20-5.40 [facility] Comment on above: Performed By: #### G LU1HR #### [facility] [address] [place] [address] Dr. Joanna Chen WBC 8.7 103/ul Normal 4.0-11.0 [facility] Comment on above: Performed By: #### G LU1HR #### [facility] [address] [place] [address] Dr. Joanna Chen PREG QUANT HCGon 07-15-2021 HCG QUANT 37979 mIU/mL Normal [facility] Comment on above: Performed By: #### C MP, PREGQNT #### [facility] [address] [place] [address] Dr. Joanna Chen HCG RANGE SEE BELOW Normal [facility] Comment on above: Result Comment: 5-50 0-1 WEEK 40-300 1-2 WEEKS 100-1,000 2-3 WEEKS 500-6,000 3-4 WEEKS 5,000-200,000 1-2 MONTHS 10,000-100,000 2-3 MONTHS 3,000-50,000 2ND TRIMESTER 1,000-50,000 3RD TRIMESTER Performed By: #### C MP, PREGQNT #### [facility] [address] [place] [address] Dr. Joanna Chen PROF 14(COMP METB)on 021 Albumin [Mass/Vol] 3.6 g/dL Normal 3.5-5.0 [facility] Comment on above: Performed By: #### C MP, PREGQNT #### [facility] [address] [place] [address] Dr. Joanna Chen Albumin/Globulin [Mass ratio] 1.0 {ratio} Normal [facility] Comment on above: Performed By: #### C MP, PREGQNT #### [facility] [address] [place] [address] Dr. Joanna Chen ALP [Catalytic activity/Vol] 43 U/L Normal 38-126 [facility] Comment on above: Performed By: #### C MP, PREGQNT #### [facility] [address] [place] [address] Dr. Joanna Chen ALT [Catalytic activity/Vol] 21 U/L Normal 9-52 [facility] Comment on above: Performed By: #### C MP, PREGQNT #### [facility] [address] [place] [address] Dr. Joanna Chen Anion gap [Moles/Vol] 11.5 mmol/L Normal [facility] Comment on above: Performed By: #### C MP, PREGQNT #### [facility] [address] [place] [address] Dr. Joanna Chen AST [Catalytic activity/Vol] 18 U/L Normal 14-36 [facility] Comment on above: Performed By: #### C MP, PREGQNT #### [facility] [address] [place] [address] Dr. Joanna Chen Bilirubin [Mass/Vol] 0.4 mg/dL Normal 0.2-1.3 [facility] Comment on above: Performed By: #### C MP, PREGQNT #### [facility] [address] [place] [address] Dr. Joanna Chen Calcium [Mass/Vol] 9.3 mg/dL Normal 8.4-10.2 [facility] Comment on above: Performed By: #### C MP, PREGQNT #### [facility] [address] [place] [address] Dr. Joanna Chen Chloride [Moles/Vol] 102 mmol/L Normal 98-107 [facility] Comment on above: Performed By: #### C MP, PREGQNT #### [facility] [address] [place] [address] Dr. Joanna Chen CO2 [Moles/Vol] 25.5 mmol/L Normal 22.0-30.0 [facility] Comment on above: Performed By: #### C MP, PREGQNT #### [facility] [address] [place] [address] Dr. Joanna Chen Creatinine [Mass/Vol] 0.54 mg/dL Normal 0.52-1.04 [facility] Comment on above: Performed By: #### C MP, PREGQNT #### [facility] [address] [place] [address] Dr. Joanna Chen EGFR-AF SUDANESE >60 Normal >=60 [facility] Comment on above: Performed By: #### C MP, PREGQNT #### [facility] [address] [place] [address] Dr. Joanna Chen EGFR-NON AF SUDANESE >60 Normal >=60 [facility] Comment on above: Performed By: #### C MP, PREGQNT #### [facility] [address] [place] [address] Dr. Joanna Chen Globulin (S) [Mass/Vol] 3.7 g/dL Normal [facility] Comment on above: Performed By: #### C MP, PREGQNT #### [facility] [address] [place] [address] Dr. Joanna Chen Glucose [Mass/Vol] 90 mg/dL Normal 74-106 [facility] Comment on above: Performed By: #### C MP, PREGQNT #### [facility] [address] [place] [address] Dr. Joanna Chen Potassium [Moles/Vol] 4.0 mmol/L Normal 3.4-5.0 [facility] Comment on above: Performed By: #### C MP, PREGQNT #### [facility] [address] [place] [address] Dr. Joanna Chen Protein [Mass/Vol] 7.3 g/dL Normal 6.1-8.2 [facility] Comment on above: Performed By: #### C MP, PREGQNT #### [facility] [address] [place] [address] Dr. Joanna Chen Sodium [Moles/Vol] 135 mmol/L Critically low 137-145 [facility] Comment on above: Performed By: #### C MP, PREGQNT #### [facility] [address] [place] [address] Dr. Joanna Chen Urea nitrogen [Mass/Vol] 8.0 mg/dL Normal 7.0-17.0 [facility] Comment on above: Performed By: #### C MP, PREGQNT #### [facility] [address] [place] [address] Dr. Joanna Chen Urea nitrogen/Creatinin e [Mass ratio] 14.8 mg/mg Normal [facility] Comment on above: Performed By: #### C MP, PREGQNT #### [facility] [address] [place] [address] Dr. Joanna Chen US PREG TVon 07-15-2021 [...] ORQUIDEA RING Date: 2021-07-15 10:52 Normal [facility] RPR QUANTon 07-06-2021 Rapid Plasma Reagin, Quant Non-Reactive Normal NonRea<1:1 [facility] Comment on above: Performed By: #### G LU1HR #### [facility] [address] [place] [address] Dr. Joanna Chen RUBELLA AB IGGon 07-06-2021 Rubella Antibodies, IgG 2.68 index Normal Immune >0.99 [facility] Comment on above: Result Comment: Non- immune <0.90 Equivocal 0.90 - 0.99 Immune >0.99 Performed By: #### C MP, PREGQNT #### [facility] [address] [place] [address] Dr. Joanna Chen HEP B SURFACE ANTIGEN SCREEN on 07-05-2021 HBsAg Screen Negative Normal Negative [facility] Comment on above: Performed By: #### H BSANS #### [facility] [address] [place] [address] Dr. Joanna Chen HEPATITIS C VIRUS AB W/ REFL EX QUANTon 07-05-2021 HCV AB <0.1 Normal 0.0-0.9 [facility] Comment on above: Performed By: #### H BSANS #### [facility] [address] [place] [address] Dr. Joanna Chen Interpretation: Comment Normal [facility] Comment on above: Result Comment: Nega tive Not infected with HCV, unless recent infection is suspected or other evidence exists to indicate HCV infection. Performed By: #### H BSANS #### [facility] [address] [place] [address] Dr. Joanna Chen HIV 1 AND 2 WITH REFLEXon HIV Screen 4th Generation wRfx Non-Reactive Normal Non Reactive [facility] Comment on above: Performed By: #### H IV12 #### [facility] [address] [place] [address] Dr. Joanna Chen CBC AUTO DIFFon 07-04-2021 BASO # 0.1 103/ul Normal 0.0-0.1 [facility] Comment on above: Performed By: #### G LU1HR #### [facility] [address] [place] [address] Dr. Joanna Chen Basophils/100 WBC (Bld) 0.5 % Normal 0.2-2.0 [facility] Comment on above: Performed By: #### G LU1HR #### [facility] [address] [place] [address] Dr. Joanna Chen EO # 0.1 103/ul Normal 0.0-0.7 [facility] Comment on above: Performed By: #### G LU1HR #### [facility] [address] [place] [address] Dr. Joanna Chen Eosinophils/100 WBC (Bld) 0.5 % Critically low 0.9-7.0 [facility] Comment on above: Performed By: #### G LU1HR #### [facility] [address] [place] [address] Dr. Joanna Chen Erythrocyte distribution width (RBC) [Ratio] 13.0 % Normal 11.0-15.0 [facility] Comment on above: Performed By: #### G LU1HR #### [facility] [address] [place] [address] Dr. Joanna Chen Hematocrit (Bld) [Volume fraction] 39.3 % Normal 36.0-48.0 [facility] Comment on above: Performed By: #### G LU1HR #### [facility] [address] [place] [address] Dr. Joanna Chen Hemoglobin (Bld) [Mass/Vol] 12.8 g/dL Normal 12.0-16.0 [facility] Comment on above: Performed By: #### G LU1HR #### [facility] [address] [place] [address] Dr. Joanna Chen IG # 0.04 10e3/ul Critically high 0.00-0.03 [facility] Comment on above: Performed By: #### G LU1HR #### [facility] [address] [place] [address] Dr. Joanna Chen IG % 0.4 % Normal 0.0-0.5 [facility] Comment on above: Performed By: #### G LU1HR #### [facility] [address] [place] [address] Dr. Joanna Chen LYMPH # 2.6 103/ul Normal 1.2-3.8 [facility] Comment on above: Performed By: #### G LU1HR #### [facility] [address] [place] [address] Dr. Joanna Chen Lymphocytes/100 WBC (Bld) 28.1 % Normal 20.5-60.0 [facility] Comment on above: Performed By: #### G LU1HR #### [facility] [address] [place] [address] Dr. Joanna Chen MANUAL DIFF REQ NO Normal [facility] Comment on above: Performed By: #### G LU1HR #### [facility] [address] [place] [address] Dr. Joanna Chen MCH (RBC) [Entitic mass] 29.2 pg Normal 26.7-34.0 [facility] Comment on above: Performed By: #### G LU1HR #### [facility] [address] [place] [address] Dr. Joanna Chen MCHC (RBC) [Mass/Vol] 32.6 g/dL Normal 29.9-35.2 [facility] Comment on above: Performed By: #### G LU1HR #### [facility] [address] [place] [address] Dr. Joanna Chen MCV (RBC) [Entitic vol] 89.7 fL Normal 81.0-99.0 [facility] Comment on above: Performed By: #### G LU1HR #### [facility] [address] [place] [address] Dr. Joanna Chen MONO # 0.8 103/ul Normal 0.3-0.8 [facility] Comment on above: Performed By: #### G LU1HR #### [facility] [address] [place] [address] Dr. Joanna Chen Monocytes/100 WBC (Bld) 8.4 % Normal 1.7-12.0 [facility] Comment on above: Performed By: #### G LU1HR #### [facility] [address] [place] [address] Dr. Joanna Chen NEUT # 5.7 103/ul Normal 1.4-6.5 [facility] Comment on above: Performed By: #### G LU1HR #### [facility] [address] [place] [address] Dr. Joanna Chen Neutrophils/100 WBC (Bld) 62.1 % Normal 43.0-75.0 [facility] Comment on above: Performed By: #### G LU1HR #### [facility] [address] [place] [address] Dr. Joanna Chen Platelet mean volume (Bld) [Entitic vol] 9.6 fL Normal 9.5-13.5 [facility] Comment on above: Performed By: #### G LU1HR #### [facility] [address] [place] [address] Dr. Joanna Chen PLT 277 103/ul Normal 150-450 [facility] Comment on above: Performed By: #### G LU1HR #### [facility] [address] [place] [address] Dr. Joanna Chen RBC 4.38 106/ul Normal 4.20-5.40 [facility] Comment on above: Performed By: #### G LU1HR #### [facility] [address] [place] [address] Dr. Joanna Chen WBC 9.2 103/ul Normal 4.0-11.0 [facility] Comment on above: Performed By: #### G LU1HR #### [facility] [address] [place] [address] Dr. Joanna Chen CULTURE URINEon 07-04-2021 CULTURE URINE Culture Observations : NO GROWTH. Normal [facility] Comment on above: Performed By: #### U RCX #### [facility] [address] [place] [address] Dr. Joanna Chen GLYCOHEMOGLOBIN A1Con 2020 ADA RECOMMENDATION ADA THERAPEUTIC TARG ET 6.0 - 7.0 ACTION SUGGESTED > 7.0 Normal [facility] Comment on above: Performed By: #### A 1C #### [facility] [address] [place] [address] Dr. Joanna Chen Glucose [Mass/Vol] 103 mg/dL Normal [facility] Comment on above: Performed By: #### A 1C #### [facility] [address] [place] [address] Dr. Joanna Chen HbA1c (Bld) [Mass fraction] 5.2 % Normal <=6.0 [facility] Comment on above: Performed By: #### A 1C #### [facility] [address] [place] [address] Dr. Joanna Chen TYPE AND SCREENon 07-04-2021 TYPE AND SCREEN Negative Normal [facility] Comment on above: Performed By: #### C MP, PREGQNT #### [facility] [address] [place] [address] Dr. Joanna Chen US PREG TVon 07-03-2021 [...] by: JESSENIA LOPEZ Date: 2021-07-03 07:14 Normal [facility] Coding Summary.on 03-31-2020 Coding Summary. CODING DATE: FINAL [facility] STATUS: Home (Routine DC) PAYOR: Lida FORRESTERIT DX: REASON FOR VISIT DX: Z01.812 Encounter [...] CphT Date Saved: 03/31/2020 10:26 am Normal [facility] Physician Orderon 03-19-2020 Physician Order [id number]#1.00CD:127 Normal [facility] Ambulatory Clinical Summaryo n 02-05-2020 Ambulatory Clinical Summary {[id number]}CD:[id number] Normal [facility] Coding Summary.on 02-04-2020 Coding Summary. CODING DATE: FINAL [facility] DSC STATUS: Home (Routine DC) PAYOR: Lida APC DESCRIPTION 5301 Level 1 Upper GI Procedures ADMIT DX: REASON FOR VISIT DX: R10.13 Epigastric pain FINAL DX: PRINCIPAL: K29.70 Gastritis, unspecified, without bleeding SECONDARY: PYMT PROC APC STAT DESCRIPTION DOCTOR NAME DATE 45173 5301 T Teddy HERNANDEZ MD 01/25/2020 phagogastroduodenoscopy, flexible, transoral; with biopsy, single or multiple 70015 Anesthesia for upper 01/25/2020 gastrointestinal endoscopic procedures, endoscope introduced proximal to duodenum; not otherwise specified NOTE: The code number assigned matches the documented diagnosis and / or procedure in the patient's chart. However, the narrative phrase printed from the coding software may appear abbreviated, or result in slightly different terminology. Revised Coded By: Constance Means Revised Date Saved: 02/04/2020 12:33 pm Normal [facility] IntraOperative Documentson 0 01-29-2020 IntraOperative Documents [id number]#1.00CD:127 Normal [facility] Postoperative Documentson Postoperative Documents [id number]#1.00CD:127 Normal [facility] Main OR Intraoperative Recor don 01-28-2020 Main OR Intraoperative Record IntraOp Document Type FT Summary Primary Physician: Teddy HERNANDEZ MD Finalized Date/Time: 01/28/20 09:11:27 Pt. Name: VERÓNICA RIVERS/Sex: 1995 Female Med Rec #: [id number] Physician: Teddy HERNANDEZ MD Financial #: [id number] Pt. Type: O Room/Bed: / Admit/Disch: 01/25/20 09:25:47 - 01/25/20 23:59:59 Institution: Case Times FT Entry 1 Patient Times In Room 01/25/20 10:06:00 Out Room 01/25/20 10:18:00 Procedure Times Start 01/25/20 10:09:00 Stop 01/25/20 10:15:00 Anesthesia Times Start 01/25/20 10:06:00 Stop 01/25/20 10:18:00 Last Modified By: Lorena Singleton RN 01/25/20 10:18:15 General Comments: 01/28/2020 Chart opened to review and send charges Mohit Mota GLASS WORKER Case Attendance FT Entry 1 Entry 2 [...] Case Attendee Lorena Singleton RN Role Performed Area Field Manager - Primary Time In 01/25/20 10:06:00 [...] Teddy Marie, Ronak Pruett CST, Rod Altamirano, Lorena Singleton RN, Fennig Jr. DO, Gary Time Out Complete 01/25/20 10:07:00 [...] and tissue Entry 1 Skin Integrity Intact, Yeager, Warm, and Skin Abnormality No Dry Outcomes [...] Comments: REPORT GIVEN TO PACU NURSE. SHARATH DUTTAoven tender Administration FT Pre-Care Text: Verifies allergies, administers [...] safely administered during the perioperative period For [facility] please see scanned medication reconcilliation form [...] 01/25/20 10:25 Zabrina Mota CST 01/28/20 09:11 [facility] Consenton 01-25-2020 Consent [id number]#1.00CD:127 [facility] Consent for Treatmenton 01-13 Consent for Treatment [id number]#1.00CD:127 [facility] Discharge Instructionson Discharge Instructions [id number]#1.00CD:127 [facility] History and Physicalon 01-24 History and Physical [id number]#1.00CD:127 [facility] History and Physical Patient: VERÓNICA RIVERS Age: 24 years Sex: Female : 1995 Associated Diagnoses: None Author: Teddy HERNANDEZ MD Subjective no changes to H & P [facility] Comment on above: Result Comment: Elec tronically Signed By: Teddy HERNANDEZ MD\.br\Date and Time Signed: 01/25/20 09:47 EDT Inpatient Patient Summaryon 01-25-2020 Inpatient Patient Summary [address] [address] [facility] Clinical Discharge Instructions PERSON INFORMATION Name: VERÓNICA RIVERS PHYSICIANS Admitting Physician: Teddy HERNANDEZ MD Attending Physician: Teddy HERNANDEZ MD PCP: Carson VALLE, Marcello Discharge Diagnosis: Antral gastritis Comment: PATIENT EDUCATION INFORMATION Instructions: Medication Leaflets: Follow up: With: Address: When: Teddy SHAHZAD [address], [address], [place] [id number] Business (1) Within 7 to 10 days MEDICATION LIST Medications to Continue with No Changes Other Medications ethinyl estradiol-norethindrone (Nortrel oral tablet) 1 Tablets By Mouth every day. Comment: [facility] IntraOperative Documentson 0 01-25-2020 IntraOperative Documents [id number]#1.00CD:127 [facility] IntraOperative Documents [id number]#1.00CD:127 [facility] Main OR PACU I Recordon 01-13 Main OR PACU I Record PACU Phase I Document Type FT Summary Primary Physician: Teddy HERNANDEZ MD Finalized Date/Time: 01/25/20 10:57:36 Pt. Name: VERÓNICA RIVERS Filipe RojasB./Sex: 1995 Female Med Rec #: [id number] Physician: Teddy HERNANDEZ MD Financial #: [id number] Pt. Type: O Room/Bed: / Admit/Disch: 01/25/20 [...] By: Angela Meza RN 01/25/20 10:57 [facility] Main OR Preoperative Recordo n 01-25-2020 Main OR Preoperative Record Holding Area Document Type FT Summary Primary Physician: Teddy HERNANDEZ MD Finalized Date/Time: 01/25/20 09:50:47 Pt. Name: VERÓNICA RIVERS Filipe Keller/Sex: 1995 Female Med Rec #: [id number] Physician: Teddy HERNANDEZ MD Financial #: [id number] Pt. Type: O Room/Bed: / Admit/Disch: 01/25/20 [...] By: Krystal Valdez RN 01/25/20 09:50 [facility] Monitor Recordon 01-25-2020 Monitor Record [id number] Normal [facility] Operative Reporton 0 Operative Report Date [...] in good condition. Nima Stevens Dictated: 01/25/2020 #[id number] Typed: 01/25/2020 #[id number] cc: Nima Higginbotham M.D. [facility] Comment on above: Result Comment: Elec tronically Signed By: Teddy HERNANDEZ MD.br\Date and Time Signed: 01/25/20 12:21 EDT Patient Education - Texton 0 01-25-2020 Patient Education - Text [facility] Progress Note-Physicianon Progress Note-Physician Patient: VERÓNICA RIVERS [...] All Problems Chronic tonsillitis / SNOMED CT 715581506 / Confirmed Abdominal pain, epigastric / SNOMED CT 496077427 / Confirmed Abdominal pain, left upper quadrant / SNOMED CT 206399496 / Confirmed Loss of appetite / SNOMED CT 542251496 / Confirmed Migraine / SNOMED CT 20512823 / Confirmed Nausea in adult / SNOMED CT 1991336342 / Confirmed Patellofemoral syndrome / SNOMED CT 9775156595 / Confirmed Raynaud's syndrome / SNOMED CT 671072726 / Confirmed, Active Problems (8) Abdominal pain, epigastric Abdominal pain, left upper quadrant Chronic tonsillitis Loss of appetite Migraine Nausea in adult Patellofemoral syndrome Raynaud's syndrome Histories Past Medical History: No active or resolved past medical history items have been selected or recorded. Family History: No family history items have been selected or recorded. Procedure history: Arthroscopy of knee ([id number]). Comments: 12/25/2019 14:10 EDT - Roxanne Morales [...] review: No qualifying data available . Plan [place] [employer]esthesiologists (ASA) physical status classification: Class II. Anesthetic Preoperative Plan Anesthesia: Monitored anesthesia care and general anesthesia if required.. Anesthetic plan, risks, benefits, and alternatives discussed with the patient and/or family. Pt. and/or family present and agree to proceed as planned.. [facility] Comment on above: Result Comment: Elec tronically Signed By: Manuel Lyman Jr., DO\.br\Date and Time Signed: 01/25/20 09:57 EDT Vital Signs Date Time Vital Sign Value Performing Clinician Bishop guan 09-20-2023 09:51-0500 Body weight 89.41 kg Dionisio Ruth DO Work Phone: [facility] 09-20-2023 09:51-0500 Diastolic blood pressure 70 mm[Hg] Dionisio Ruth DO Work Phone: [facility] 09-20-2023 09:51-0500 Systolic blood pressure 114 mm[Hg] Dionisio Ruth DO Work Phone: [facility] Encounters Encounter Date Encounter Type Care Provider Facility Start: 12-14-2023 End: 12-14-2023 ambulatory DIONISIO RUTH Not Available Start: 12-07-2023 End: 12-07-2023 ambulatory DIONISIO RUTH Not Available Start: 11-30-2023 End: 11-30-2023 ambulatory DIONISIO RUTH Not Available Start: 11-15-2023 End: 11-15-2023 ambulatory DIONISIO RUTH Not Available Start: 11-01-2023 End: 11-01-2023 ambulatory DIONISIO RUTH Not Available Start: 10-18-2023 End: 10-18-2023 ambulatory DIONISIO RUTH Not Available Start: 10-04-2023 End: 10-04-2023 ambulatory DIONISIO RUTH Not Available Start: 09-20-2023 End: 09-20-2023 ambulatory DIONISIO RUTH Not Available Start: 09-20-2023 End: 09-20-2023 flow sheet Dionisio Ruth DO Work Phone: [facility] Comment on above: Second trimester pre gnancy; Placental abnormality in second trimester Start: 08-23-2023 End: 08-23-2023 ambulatory DIONISIO RUTH Not Available Start: 07-20-2023 End: 07-20-2023 ambulatory DIONISIO RUTH Not Available Start: 05-26-2022 End: 05-26-2022 ambulatory [...] LOPEZ Facility:[facility] Start: 10-01-2021 End: 10-02-[address] NONE LISTED REQUEST Facility:[facility] Start: 07-30-2021 End: 07-30-[address] NONE LISTED REQUEST Facility:[facility] Start: 07-27-2021 End: [...] PM EST Routine [facility] [address] [place] [address] Dionisio Miranda, DO [address] [place] [address] [facility] Payers Date Payer Category Payer Unknown [employer] [id number] 2022-Present [phone] [address] [address] [place] [address] [id number] 2022 Unknown [id number] 1995 Unknown [id number] 2.16.840.1.356144.3.579.2.59 3 1995 Unknown [id number] 2.16.840.1.489401.3.579.2.59 3 1995 Unknown [id number] 2.16.840.1.036195.3.579.2.59 3 1995 Unknown [id number] 2.16.840.1.040515.3.579.2.59 3 1995 Unknown [id number] 2.16.840.1.789194.3.579.2.59 3 1995 Unknown [id number] 2.16.840.1.002974.3.579.2.59 3 1995 Unknown [id number] 2.16.840.1.557596.3.579.2.59 3 1995 Unknown [id number] 2.16.840.1.394128.3.579.2.59 3 1995 Unknown [id number] 2.16.840.1.808388.3.579.2.59 3 1997 Unknown [id number] 2.16.840.1.801542.3.579.2.59 3 1995 Unknown [id number] 2.16.840.1.257586.3.579.2.59 3 1997 Unknown [id number] 2.16.840.1.471572.3.579.2.59 3 1997 Unknown [id number] 2.16.840.1.407026.3.579.2.59 3 1997 Unknown [id number] 2.16.840.1.670386.3.579.2.12 59 1997 Unknown [id number] 2.16.840.1.769007.3.579.2.12 59 1995 Unknown [id number] 2.16.840.1.196406.3.579.2.12 59 1995 Unknown [id number] 2.16.840.1.431326.3.579.2.12 59 1995 Unknown [id number] 2.16.840.1.077342.3.579.2.12 59 1995 Unknown [id number] 2.16.840.1.337242.3.579.2.12 59 1997 Unknown [id number] 2.16.840.1.647429.3.579.2.12 59 1997 Unknown [id number] 2.16.840.1.855575.3.579.2.12 59 1995 Unknown [id number] 2.16.840.1.341382.3.579.2.12 59 1995 Unknown [id number] 2.16.840.1.447792.3.579.2.12 59 1957 Self-pay 1959 Unknown [id number] 1959 Unknown [id number] 1957 Unknown [id number] Unknown [id number] 2.16.840.1.068798.3.579.2.59 3 Social History Date Type Detail Facility Tobacco smoking stat [facility] Tobacco smoking consumption unknown [facility] Start: [...] includes the following prescription(s): magnesium and vit [id number]-[id number]-[id number]. Medical History: Active Ambulatory Problems Diagnosis Date [...] nursing note reviewed. Exam conducted with a skein straightener present. Vitals: There is no height or [...] Dionisio Miranda DO documented in this encounter [facility] Clinical Note 02-01-2022 Note Date & Type Note Facility 02-01-2022 Note [facility] [place], [place] NAME: VERÓNICA DECKER DATE OF : MEDICAL REC#: [id number] REMOTE CONTROL MIRROR INSTALLER: 160[address] ISMAEL LOZANO ADMIT DATE: 02/01/2022 07:59:00 BEATER ENGINEER DATE: 02/02/2022 22:13 DICTATING PHYSICIAN: DOINISIO MIRANDA DICTATION DATE: 02/01/2022 18:10 OPERATIVE NOTE [...] Spinal with Duramorph. SURGEON: Dionisio Miranda D.O. PREDATORY ANIMAL TRAPPER: THERESE Abbasi URINE OUTPUT: Yellow and clear. [...] Miranda DO on 02/04/2022 10:17 AM EDT [facility] Signed and Approved by: DR DIONISIO MIRANDA . 02/04/2022 10:17:00 [facility] Discharge summary note 02-01-2022 Note Date [...] pain free and no longer on narcotics. [facility] Signed and Approved by: DR DIONISIO MIRANDA . 02/07/2022 10:46:00 [facility] Evaluation note Note Date & Type [...] Found Procedure Findings Note Patient: VERÓNICA RIVERS [facility]: [id number] Age: 24 years Sex: Female : 1995 Associated Diagnoses: None Author: Manuel Lyman Jr., DO Postoperative Information Post Operative Note Anesthetic utilized: Monitored anesthesia care. Health Status Allergies: Allergic Reactions (Selected) No Known Medication Allergies Current medications: (Selected) Documented Medications Documented Nortrel oral tablet: 1 tab(s), Oral, Daily, Refill(s) 0 Problem list: All Problems Chronic tonsillitis / SNOMED CT 778925253 / Confirmed Abdominal pain, epigastric / SNOMED CT 700709464 / Confirmed Abdominal pain, left upper quadrant / SNOMED CT 191551309 / Confirmed Loss of appetite / SNOMED CT 312729059 / Confirmed Migraine / SNOMED CT 29095855 / Confirmed Nausea in adult / SNOMED CT 3478907658 / Confirmed Patellofemoral syndrome / SNOMED CT 3534279940 / Confirmed Raynaud's syndrome / SNOMED CT 789551959 / Confirmed Physical Examination Intake and Output Pt. denies significant n/v, and is (more content not included)... Additional Source Comments INFORMATION SOURCE (unrecogn ized section and content) DATE CREATED AUTHOR [facility]31/[facility] DATE CREATED AUTHOR AUTHOR'S ORGANIZ ATION 06/07/2022 [facility] DATE CREATED AUTHOR AUTHOR'S ORGANIZ ATION 12/16/2023 [facility] EPIC Reason for Visit (unrecogniz ed section and content) Reason Comments Routine Visit Care Teams (unrecognized sec tion and content) Design Agent Relationship Specialty Start Date End Date Marcello Byrd MD [address] [place] [address] PCP - General Family Medicine 05/20/23 FOR [...] BE BASED ON THE PRIMARY CLINICAL RECORDS. [employer] provides no warranty or guarantee of the accuracy or completeness of information in this document.
[2023-12-21 11:43] LABS: Bilirubin Urine NEGATIVE (NEGATIVE); Blood Urine NEGATIVE (NEGATIVE); Clarity Urine CLEAR (CLEAR); Color Urine LT. YELLOW (YELLOW); Glucose Urine UA NEGATIVE (NEGATIVE); Ketones Urine 15 mg/dL (NEGATIVE); Leukocyte Esterase Urine SMALL (NEGATIVE); Nitrite Urine NEGATIVE (NEGATIVE); Protein Urine NEGATIVE (NEG/TRACE); Specific Gravity Urine 1.015 (1.005-1.025); Urobilinogen Urine 0.2 EU/dL (0.2-1.0)
[2023-12-21 11:54] LABS: Basophils Percent Auto 0.3 % (0.2-2.0); Eosinophils Absolute Auto 0.2 10^3/uL (0.0-0.7); Eosinophils Percent Auto 2.2 % (0.9-7.0); Hematocrit 36.1 % (36.0-48.0); Hemoglobin 11.9 g/dL (12.0-16.0); Immature Granulocytes Pct Auto 0.9 % (0.0-0.5); Lymphocytes Absolute Auto 1.8 10^3/uL (1.2-3.8); Lymphocytes Percent Auto 17.2 % (20.5-60.0); Mean Corpuscular Hemoglobin 29.5 pg (26.7-34.0); Mean Corpuscular Volume 89.4 fL (81.0-99.0); Mean Platelet Volume 11.1 fL (9.5-13.5); Monocytes Absolute Auto 0.8 10^3/uL (0.3-0.8); Monocytes Percent Auto 7.5 % (1.7-12.0); Neutrophils Absolute Auto 7.7 10^3/uL (1.4-6.5); Neutrophils Percent Auto 71.9 % (43.0-75.0); Platelet Count 224 10^3/uL (150-450); Red Blood Count 4.04 10^6/uL (4.20-5.40); Red Cell Distribution Width 14.1 % (11.0-15.0); White Blood Count 10.7 10^3/uL (4.0-11.0)
[2023-12-21 12:07] LABS: Amphetamine Screen Urine NEGATIVE (NEGATIVE); Benzodiazepines Screen Urine NEGATIVE (NEGATIVE); Cannabinoid Screen Urine NEGATIVE (NEGATIVE); Cocaine Screen Urine NEGATIVE (NEGATIVE); Methamphetamines Screen Urine NEGATIVE (NEGATIVE); Opiate Screen Urine NEGATIVE (NEGATIVE); Phencyclidine Screen Urine NEGATIVE (NEGATIVE)
[2023-12-21 12:08] LABS: Barbiturates Screen Urine NEGATIVE (NEGATIVE); Buprenorphine Screen Urine NEGATIVE (NEGATIVE); Methadone Screen Urine NEGATIVE (NEGATIVE); Oxycodone Screen Urine NEGATIVE (NEGATIVE); Tricyclic Antidepressant Urine NEGATIVE (NEGATIVE)
[2023-12-21] MEDS: FAMOTIDINE/PF 20 MG/2 ML VIAL IV (12:18)
[2023-12-21] MEDS: CITRIC ACID/SODIUM CITRATE 30 ML SOLUTION ORACIT SHOHL'S SOLN PO (12:18)
[2023-12-21] MEDS: METOCLOPRAMIDE HCL 10 MG/2 ML VIAL IVP (12:20)
[2023-12-21 12:29] LABS: Bacteria Urine SMALL #/HPF (NONE SEEN); Mucus Urine NONE SEEN (NONE SEEN); RBC Urine NONE SEEN #/HPF (0-2); Squamous Epithelial Cell Urine MODERATE #/LPF (NONE/RARE)
[2023-12-21] MEDS: CEFAZOLIN SODIUM/DEXTROSE,ISO 2 GM/50 ML PIGGYBACK IV ×2 (12:37→18:56)
[2023-12-21] MEDS: LACTATED RINGER'S SOLUTION 1,000 ML 50 ML IV (13:10)
--- NOTE | 2023-12-21 13:33 | PM.ONB ---
Brief Operative Note Date of procedure: 12/21/23 Pre-op diagnosis general: iup at 39wks, previous c/s Post-op diagnosis: same as pre-op Procedure: NAME OF PROCEDURE: [ section ] PROCEDURE: Patient was taken back to the Operating Room where she was given a spinal anesthesia with Duramorph without difficulty. She was prepped and draped in the normal sterile fashion. A Pfannenstiel skin incision was then made 2 cm above the symphysis pubis and carried down to underlying rectus fascia using a Bovie. The fascia was incised in the midline and extended laterally using Hart scissors. Two Makeda clamps were placed on the superior aspect of the fascia and dissected off the underlying rectus muscles. The same was performed on the inferior aspect as well. The muscles were then in the midline. Peritoneum was identified and entered bluntly. The peritoneum was then extended superiorly and inferiorly with good visualization of the bladder. The bladder blade was inserted. A low transverse incision was made on the patient's uterus and extended laterally digitally. The was then delivered atraumatically after the bladder blade was removed in the cephalic position. The cord was clamped and cut. Cord blood was obtained. The was handed off to awaiting team. The patient's placenta was spontaneously delivered. The uterus was then exteriorized. The uterus was cleared of all clots and debris. The bladder blade was reinserted. The patient's uterine incision was closed using #0 Vicryl in a running lock fashion. Excellent hemostasis was assured. The uterus was then returned to the patient's abdomen. The patient's abdomen was copiously irrigated using warm saline. Peritoneal gutters were cleared of all clots and debris. Again excellent hemostasis was assured. The patient's peritoneum was closed using 3-0 Vicryl in a running fashion. The patient's fascia was closed using #0 Vicryl in a running fashion. The patient's skin was closed using 4-0 Vicryl subcuticularly. The patient tolerated the procedure well. Sponge, lap, and needle counts were correct x2. The patient was taken to the Recovery Room in stable condition. Anesthesia: spinal Surgeon: Arcadio Miranda Aniline Press Worker: Leona Whipple Estimated blood loss (mL): 575 Pathology: none sent Condition: stable Disposition: floor Urinary Catheter Management Urinary Catheter Management Urethral: Cath placed during this visit: yes Urethral indwelling: No Insertion date: 12/21/23 Insertion time: 11:20
--- NOTE | 2023-12-21 13:34 | PM.OBPRCCS ---
Procedure Pre-op/Post-op diagnoses: Pre-Op/Post-Op Diagnoses Operation Date: 12/21/23 12:30 <No data on this case meets the specified criteria> Procedure: Procedures Operation Date: 12/21/23 12:30 Actual Procedure Side Surgeon p Repeat Not Applicable Arcadio Miranda DO Shovel Mechanic: Leona Whipple Estimated blood loss (mL): 100 Disposition: floor Anesthesia type: Spinal
[2023-12-21] MEDS: OXYTOCIN/0.9 % SODIUM CHLORIDE 20 UNITS/1,000 ML PLAST..BAG 125 UNIT IV (13:55)
--- NOTE | 2023-12-21 16:57 | PC.NURSE ---
Pt nausea at this times. Denies currently. Varicose veins noted on pt left leg behind knee; pt states she gets these during . Pt denies pain.
--- NOTE | 2023-12-21 17:01 | PC.NURSE ---
Dinora-care performed and pads changed at this time with 2nd RN Mellissa Hinton RN. Sm, stringed clots noted on pt dinora-pad. Fundus remains firm.
--- NOTE | 2023-12-21 17:04 | PC.NURSE ---
Pads weighed= 138ml.
--- NOTE | 2023-12-21 17:06 | PC.NURSE ---
SM stringed clots noted on pt dinora-pad. Fundus remains firm U/1.
--- NOTE | 2023-12-21 17:09 | PC.NURSE ---
SM, stringed clots remain on pt dinora-pad at this time. Pads changed and dinora-care performed. Pads weighed; 184 ml total.
--- NOTE | 2023-12-21 19:13 | W.PC.ACHO ---
Registration Status: ADM IN Primary Language: Macedonian Preferred Language: Macedonian Report given to Simba EARLY at 1920. Active Medications Generic Name Dose Route Start Last Admin Trade Name Freq PRN Reason Stop Dose Admin Al Hydroxide/Mg Hydroxide 2,400 mg 12/21/23 13:35 Magnesium Hydroxide 2,400 Mg/10 Ml Oral.Susp PO Q6H PRN Dyspepsia Diphenhydramine HCl 25 mg 12/21/23 13:35 Diphenhydramine Hcl 50 Mg/Ml (1ml) Vial IV 12/22/23 13:36 Q6H PRN Itching Diphtheria/Pertussis/Tetanus Vacc 0.5 ml 12/23/23 09:00 Adacel Diph,Pertuss(Acell),Tet Vac/Pf 0.5 Ml Adult Syringe IM 12/23/23 09:01 .ONCE ONE Docusate Sodium 100 mg 12/22/23 09:00 Docusate Sodium 100 Mg Capsule PO BID LUCILLE Enoxaparin Sodium 40 mg 12/21/23 21:00 Enoxaparin Sodium 40 Mg/0.4 Ml Syringe SUBQ Q24H LUCILLE Sodium Chloride 1,000 mls @ 125 mls/hr 12/21/23 12:00 Sodium Chloride 0.9% 1,000 Ml IV .Q8H LUCILLE Lactated Ringer's 1,000 mls @ 125 mls/hr 12/21/23 14:00 Lactated Ringers IV .Q8H LUCILLE Cefazolin Sodium/Dextrose 2 gm in 50 mls @ 100 mls/hr 12/21/23 19:00 12/21/23 18:56 Ancef IV 12/21/23 19:29 100 mls/hr ONCE ONE Administration Promethazine HCl 25 mg/ Sodium 51 mls @ 204 mls/hr 12/21/23 13:35 Chloride IV Q6H PRN Nausea And Vomiting Oxytocin/Sodium Chloride 20 units in 1,000 mls @ 125 mls/hr 12/21/23 14:00 12/21/23 13:55 Pitocin 20 Unit/1,000 Ml-Ns IV 12/21/23 21:59 125 mls/hr Q8H LUCILLE Administration Ibuprofen 800 mg 12/21/23 13:35 Ibuprofen 400 Mg Tablet PO Q8H PRN Pain Ketorolac Tromethamine 30 mg 12/21/23 13:35 Ketorolac Tromethamine 30 Mg/Ml Vial IVP 12/23/23 13:36 Q6H PRN Pain Measles/Mumps/Rubella Vaccine Live 0.5 ml 12/23/23 09:00 Measles,Mumps,Rubella Vacc/Pf 0.5 Ml Vial SQ 12/23/23 09:01 .ONCE ONE Ondansetron HCl 4 mg 12/21/23 13:35 Ondansetron Pf 4 Mg/2 Ml Vial IV Q6H PRN Nausea And Vomiting Ondansetron HCl 4 mg 12/21/23 13:35 Ondansetron 4 Mg Rapdis Tablet PO Q6H PRN Nausea And Vomiting Oxycodone/Acetaminophen 1 tab 12/21/23 13:35 Oxycodone Hcl/Acetaminophen 5mg/325mg PO Q4H PRN Pain Scale 4-6 Oxycodone/Acetaminophen 2 tab 12/21/23 13:35 Oxycodone Hcl/Acetaminophen 5mg/325mg PO Q4H PRN Pain Scale 7-10 Senna 17.2 mg 12/21/23 20:00 Sennosides 8.6 Mg Tablet PO QHS PRN Constipation Simethicone 80 mg 12/21/23 13:35 Simethicone 80 Mg Tab.Chew PO QID PRN Abdominal Distention Diet Category Date Time Status Regular Consistency Diet Diet 12/21/23 13:35 Active IV Insertion/Site Date of IV Line Insertion [ 12/21/23 Short PIV (<1.75 in) 20g right Forearm] IV Insertion Time [Short PIV ( 10:45 <1.75 in) 20g right Forearm] IV Catheter Type [Right Peripheral IV Forearm] IV Catheter Type [Right Peripheral IV Forearm] IV Catheter Type [Right Peripheral IV Forearm] Neurology Patient orientation (short person,place,time,situation list) Respiratory Pulse Oximetry 99 Pulse Oximetry 100 Pulse Oximetry 99 Pulse Oximetry 99 Pulse Oximetry 99 Pulse Oximetry 99 Pulse Oximetry 99 Pulse Oximetry 99 Pulse Oximetry 99 Pulse Oximetry 99 Pulse Oximetry 98 Pulse Oximetry 97 Pulse Oximetry 98 Pulse Oximetry 97 Pulse Oximetry 98 Pulse Oximetry 97 Pulse Oximetry 97 Pulse Oximetry 97 Pulse Oximetry 98 Pulse Oximetry 98 Pulse Oximetry 96 Pulse Oximetry 97 Pulse Oximetry 97 Pulse Oximetry 98 Pulse Oximetry 98 Pulse Oximetry 97 Pulse Oximetry 96 Pulse Oximetry 100 Pulse Oximetry 100 Pulse Oximetry 99 Pulse Oximetry 100 Oxygen Delivery Method Room Air Oxygen Delivery Method Room Air Oxygen Delivery Method Room Air Oxygen Delivery Method Room Air Oxygen Delivery Method Room Air Catheter Urinary Catheter Date of 12/21/23 Insertion [Urethral] Urinary Catheter Date of 12/21/23 Insertion [Urethral] Urinary Catheter Time of 11:20 Insertion [Urethral] Urinary Catheter Time of 11:20 Insertion [Urethral]
[2023-12-21] MEDS: KETOROLAC TROMETHAMINE 30 MG/ML VIAL IVP (19:42)
[2023-12-22] VITALS (7 sets, daily range): BP systolic 94–104; BP diastolic 59–68; PULSE 84–100; TEMP 36.3–36.8
--- NOTE | 2023-12-22 00:19 | PM.OBPN ---
OB - PN: Subj Subjective Patient comments: no complaints and pain well controlled status: doing well Exam Constitutional Vital Signs, click to edit/add: Last Vital Signs Temp 97.4 F L 12/21/23 19:33 Pulse 81 12/21/23 19:33 Resp 16 12/21/23 19:33 BP 103/71 12/21/23 19:33 Pulse Ox 97 12/21/23 19:33 O2 Del Method Room Air 12/21/23 19:35 Documenting provider has reviewed patient's vital signs: yes Common normals: no apparent distress Respiratory Common normals: clear to auscultation bilaterally Cardio Common normals: regular rate and regular rhythm GI Common normals: Normal to inspection, nondistended, normoactive bowel sounds present Extremity Common normals: no clubbing, cyanosis or edema and no calf tenderness Results Labs Labs: Short CBC 12/21/23 Range/Units 10:40 WBC 10.7 (4.0-11.0) 10^3/uL Hgb 11.9 L (12.0-16.0) g/dL Hct 36.1 (36.0-48.0) % Plt Count 224 (150-450) 10^3/uL Urine 12/21/23 Range/Units 10:45 Urine Color Lt. yellow (YELLOW) Urine Clarity Clear (CLEAR) Urine pH 8.0 (5.0-9.0) Ur Specific [place] 1.015 (1.005-1.025) Urine Protein Negative (NEG/TRACE) mg/dL Urine Glucose (UA) Negative (NEGATIVE) mg/dL Urinary Catheter Management Urinary Catheter Management Urethral: Cath placed during this visit: yes Urethral indwelling: No Insertion date: 12/21/23 Insertion time: 11:20 OB - PN: A/P Plan - day: 1 Plan: routine postop care Time Spent with Patient Time: Total time spent is greater than 50% in coordination of care (as documented) at patient's floor/unit and/or counseling patient: Total time spent with greater than 50% in coordination of care (as documented) at patient's floor/unit and/or counseling patient: less than 15 minutes
[2023-12-22] MEDS: ENOXAPARIN SODIUM 40 MG/0.4 ML SYRINGE SUBQ (01:14)
[2023-12-22] MEDS: KETOROLAC TROMETHAMINE 30 MG/ML VIAL IVP ×3 (01:14→16:04)
[2023-12-22 05:53] LABS: Basophils Absolute Auto 0.1 10^3/uL (0.0-0.1); Basophils Percent Auto 0.4 % (0.2-2.0); Eosinophils Absolute Auto 0.2 10^3/uL (0.0-0.7); Eosinophils Percent Auto 0.8 % (0.9-7.0); Hematocrit 31.7 % (36.0-48.0); Hemoglobin 10.2 g/dL (12.0-16.0); Immature Granulocytes Abs Auto 0.18 10^3/uL (0.00-0.03); Immature Granulocytes Pct Auto 0.9 % (0.0-0.5); Lymphocytes Percent Auto 15.7 % (20.5-60.0); Mean Corpuscular HGB Conc 32.2 g/dL (29.9-35.2); Mean Corpuscular Hemoglobin 29.1 pg (26.7-34.0); Mean Corpuscular Volume 90.6 fL (81.0-99.0); Mean Platelet Volume 10.4 fL (9.5-13.5); Monocytes Absolute Auto 1.4 10^3/uL (0.3-0.8); Monocytes Percent Auto 7.1 % (1.7-12.0); Neutrophils Absolute Auto 14.3 10^3/uL (1.4-6.5); Neutrophils Percent Auto 75.1 % (43.0-75.0); Platelet Count 220 10^3/uL (150-450); Red Cell Distribution Width 14.3 % (11.0-15.0); White Blood Count 19.1 10^3/uL (4.0-11.0)
[2023-12-22] MEDS: DOCUSATE SODIUM 100 MG CAPSULE PO ×2 (08:26→22:10)
[2023-12-22] MEDS: IBUPROFEN 400 MG TABLET 800 MG PO (22:10)
[2023-12-23 00:55] VITALS: BP 108/62; PULSE 78; TEMP 37
[2023-12-23] MEDS: ENOXAPARIN SODIUM 40 MG/0.4 ML SYRINGE SUBQ (01:46)
[2023-12-23] MEDS: IBUPROFEN 400 MG TABLET 800 MG PO (06:27)
[2023-12-23 08:00] VITALS: BP 108/62; PULSE 77; TEMP 36.5
[2023-12-23 08:02] VITALS: BP 114/76
[2023-12-23] MEDS: DOCUSATE SODIUM 100 MG CAPSULE PO (09:01)
--- NOTE | 2023-12-23 09:06 | PM.OBPN ---
OB - PN: Subj Subjective Patient comments: no complaints and pain well controlled status: doing well Exam Constitutional Vital Signs, click to edit/add: Last Vital Signs Temp 97.7 F 12/23/23 08:00 Pulse 77 12/23/23 08:00 Resp 16 12/23/23 08:00 BP 114/76 12/23/23 08:02 Pulse Ox 97 12/21/23 19:33 O2 Del Method Room Air 12/23/23 08:00 Documenting provider has reviewed patient's vital signs: yes Common normals: no apparent distress Respiratory Common normals: clear to auscultation bilaterally Cardio Common normals: regular rate and regular rhythm GI Common normals: Normal to inspection, nondistended, normoactive bowel sounds present Extremity Common normals: no clubbing, cyanosis or edema and no calf tenderness Urinary Catheter Management Urinary Catheter Management Urethral: Cath placed during this visit: yes Urethral indwelling: No Insertion date: 12/21/23 Insertion time: 11:20 OB - PN: A/P Plan - day: 2 Plan: routine postop care, discharge home and other (FU 1WK) Time Spent with Patient Time: Total time spent is greater than 50% in coordination of care (as documented) at patient's floor/unit and/or counseling patient: Total time spent with greater than 50% in coordination of care (as documented) at patient's floor/unit and/or counseling patient: less than 15 minutes
== END 2023-12-23 12:34 | disposition home or self-care (01) | DRG 788 ==
PROVIDERS: Admitting Provider Obstetrics & Gynecology; PCP Family Medicine; Visit Provider Obstetrics & Gynecology
PROC: 10D00Z1 Extraction of Products of Conception, Low, Open Approach (ICD-10-PCS; CPT 59514; principal; 2023-12-21 12:30)
DX: O34.211 Maternal care for low transverse scar from previous cesarean delivery (principal); Z3A.39 39 weeks gestation of pregnancy; Z37.0 Single live birth
CPT/HCPCS: 36415; 51702; 80307; 81001; 85025; 86850; 86900; 86901; 94667; 94668; 96372; 96374; 96375; 96376; J1094

== ENCOUNTER 2023-12-26 08:30 | Outpatient (OUT) | payer OTHER, SELFPAY ==
--- NOTE | 2023-12-26 10:06 | PC.NURSE ---
Family arrives for follow up appointment. Verónica states all doing well, adjusting well Mom states is feeling rested as baby nurses every 2 hours during the day and every 3 hours at night. VSS and assessment WNL. Denies headache, visual disturbances, or epigastric pain. I have felt so good compared to 1st time, No spinal headache this time Reports good appetite and regular BM. Incision clear, no redness or drainage noted, steri strips intact. Small amount of faded bruising around umbilicus noted. Pt managing pain with Tylenol and Motrin every 4-5 hours on alternating schedule. Denies concerns with as baby feeds well, occasionally has pinching with initial latch, but not often. Placed cabbage on Tail of Bishop in axilla as became engorged again with this baby. Baby Nakita doing well, VSS and assessment WNL. Color pink with jaundiced undertones. Baby eats frequently and mom reports use of 12-15 diapers daily, with both urine and stool. Parents deny concerns with . FAmily leaves ambulatory, Verónica aware to call for concerns and aware of [facility] support group.
[2023-12-26 10:08] VITALS: BP 121/85; PULSE 88; TEMP 36.6; O2SAT 97
== END 2023-12-26 10:21 | disposition home or self-care (01) ==
LOC: FBCO 08:31
PROVIDERS: PCP Family Medicine; Visit Provider Obstetrics & Gynecology
DX: Z39.2 Encounter for routine postpartum follow-up (principal)

== ENCOUNTER 2024-08-30 18:56 | Outpatient (REF) | payer OTHER, SELFPAY ==
--- OUTSIDE RECORDS SUMMARY | 2024-08-30 19:04 | XMS_ITS | CCD ---
Author Organization [facility] Care Team Providers Care Cans Vacuum Tester Name Role Phone RUTH, DR NICHOLE Consulting [...] Unavailable ZIEBER, DR ORQUIDEA Marie Consulting Unavailable IUKA, DR JESSENIA oCte Consulting Unavailable REQUEST, NONE LISTED Primary Care [...] Unavailable RUSLAN, DR CHRISTIANSON Consulting Unavailable REQUEST, NONE LISTED Primary Care Unavaila ble RUTH, DR NICHOLE Attending Unavailable RUTH, DR NICHOLE Admitting Unavailable RUTH, DR NICHOLE Attending Unavailable RUTH, DR NICHOLE Admitting Unavailable RUTH, DR NICHOLE Consulting Unavailable REQUEST, DR NONE LISTED Primary Care Unavaila ble ZIEBER, DR ORQUIDEA Marie Consulting Unavailable RUTH, DR NICHOLE Procedure Practitioner Unavailab le AGUBBRIANNA GLASGOW Consulting Unavailable AGUBOSIMBRIANNA Procedure Practitioner Unavaila ble RUTH, DR NICHOLE [...] Attending Unavailable RUTH, DR NICHOLE Admitting Unavailable IUKA, DR JESSENIA Cote Consulting Unavailable BENNIEY, DR ATWOOD Primary Care Unavailable RUTH, DR NICHOLE Attending Unavailable RUTH, DR NICHOLE Admitting Unavailable RUTH, DR NICHOLE Consulting Unavailable Carson VALLE, Marcello Altamirano Primary Care Provider [phone] DIONISIO MIRANDA Attending Unavailable RUTH, DIONISIO Attending [...] morning. 60 tablet 11 08/23/2023 08/22/2024 Active norethindrone 0.35 mg oral tablet (1 source) Start: 02-06-2024 End: 02-05-2025 take 1 tablet by mouth once daily norethindrone (Micronor) 0.35 MG tablet Indications: Uses control Take 1 tablet (0.35 mg) by mouth Daily 28 tablet 11 02/06/2024 02/05/2025 Active Vit w/Bs-Gpabtetsp-KA (PNV PO) (3 sources) take 1 tablet by mouth in the morning Vit w/Ln-Htoeclzxm-MH (PNV PO) Take 1 tablet by mouth in the morning. Active take 1 tablet by mouth in the mo rning Vit w/Gu-Uyuvqlgpc-AR (PNV PO) Take 1 tablet by mouth [...] UA Negative Negative - 4(70) +++ mg/dL [facility] Blood, UA Negative Negative - 50 Zeus/mcL [facility] Clarity, UA Clear [facility] Color, UA Yellow [facility] Glucose, UA Negative Negative - 1999(110) ++++ mg/dL [facility] Interpretation and review of laboratory results Abnormal [facility] Ketones, UA Negative Negative - 160(16) ++++ mg/dL [facility] Leukocytes, UA Trace Negative - 500+++ Jing/mcL [facility] Nitrite, UA Negative Negative - Positive [facility] pH, UA 7.0 5 - 9 [facility] Protein, UA Negative Negative - 2000(20) ++++ mg/dL [facility] Spec Grav, UA 1.010 1 - 1.03 [facility] Urobilinogen, UA 0.2 0.2 - 12 mg/dL [facility] PAP ACOG PANEL 2: 23 to 31on 06-02-2022 . . Normal [facility] Comment on above: Performed By: #### G LU1HR #### [facility] [address] [place] [address] Dr. Joanna Chen Age Gdln ACOG Testing 21-29 Normal [facility] Comment on above: Performed By: #### G LU1HR #### [facility] [address] [place] [address] Dr. Joanna Chen DIAGNOSIS: Comment [facility] Comment on above: Result Comment: NEGA TIVE FOR INTRAEPITHELIAL LESION OR MALIGNANCY. Performed By: #### G LU1HR #### [facility] [address] [place] [address] Dr. Joanna Chen Methodology: Comment [facility] Comment on above: Result Comment: This liquid based ThinPrep(R) pap test was screened with the use of an image guided system. Performed By: #### G LU1HR #### [facility] [address] [place] [address] Dr. Joanna Chen Note: Comment [facility] Comment on above: Result Comment: The Pap smear is a screening test designed to aid in the detection of premalignant and malignant conditions of the uterine cervix. It is not a diagnostic procedure and should not be used as the sole means of detecting cervical cancer. Both false-positive and false-negative reports do occur. . Performed By: #### G LU1HR #### [facility] [address] [place] [address] Dr. Joanna Chen Performed by: Comment Normal [facility] Comment on above: Result Comment: Serena Bassett, R D Engineer (ASCP) Performed By: #### G LU1HR #### [facility] [address] [place] [address] Dr. Joanna Chen Reflex Criteria: Comment [facility] Comment on above: Result Comment: The HPV DNA reflex criteria were not met with this specimen result therefore, no HPV testing was performed. . Performed By: #### G LU1HR #### [facility] [address] [address] [address] Joanna Chen Specimen adequacy: Comment Normal [facility] Comment on above: Result Comment: Sati sfactory for evaluation. Endocervical and/or squamous metaplastic cells (endocervical component) are present. Performed By: #### G LU1HR #### [facility] [address] [address] [address] Joanna Chen CBC AUTO DIFFon 02-02-2022 BASO # 0.1 103/ul Normal 0.0-0.1 [facility] Comment on above: Performed By: #### H BSANS #### [facility] [address] [place] [address] Dr. Joanna Chen Basophils/100 WBC (Bld) 0.3 % Normal 0.2-2.0 [facility] Comment on above: Performed By: #### H BSANS #### [facility] [address] [place] [address] Dr. Joanna Chen EO # 0.1 103/ul Normal 0.0-0.7 [facility] Comment on above: Performed By: #### H BSANS #### [facility] [address] [place] [address] Dr. Joanna Chen Eosinophils/100 WBC (Bld) 0.4 % Critically low 0.9-7.0 [facility] Comment on above: Performed By: #### H BSANS #### [facility] [address] [place] [address] Dr. Joanna Chen Erythrocyte distribution width (RBC) [Ratio] 13.8 % Normal 11.0-15.0 [facility] Comment on above: Performed By: #### H BSANS #### [facility] [address] [place] [address] Dr. Joanna Chen Hematocrit (Bld) [Volume fraction] 31.7 % Critically low 36.0-48.0 [facility] Comment on above: Performed By: #### H BSANS #### [facility] [address] [place] [address] Dr. Joanna Chen Hemoglobin (Bld) [Mass/Vol] 10.0 g/dL Critically low 12.0-16.0 [facility] Comment on above: Performed By: #### H BSANS #### [facility] [address] [place] [address] Dr. Joanna Chen IG # 0.15 10e3/ul Critically high 0.00-0.03 [facility] Comment on above: Performed By: #### H BSANS #### [facility] [address] [address] [address] Joanna Chen IG % 0.9 % Critically high 0.0-0.5 [facility] Comment on above: Performed By: #### H BSANS #### [facility] [address] [place] [address] Dr. Joanna Chen LYMPH # 1.7 103/ul Normal 1.2-3.8 [facility] Comment on above: Performed By: #### H BSANS #### [facility] [address] [place] [address] Dr. Joanna Chen Lymphocytes/100 WBC (Bld) 10.5 % Critically low 20.5-60.0 [facility] Comment on above: Performed By: #### H BSANS #### [facility] [address] [place] [address] Dr. Joanna Chen MANUAL DIFF REQ NO Normal [facility] Comment on above: Performed By: #### H BSANS #### [facility] [address] [place] [address] Dr. Jonana Chen MCH (RBC) [Entitic mass] 29.2 pg Normal 26.7-34.0 [facility] Comment on above: Performed By: #### H BSANS #### [facility] [address] [place] [address] Dr. Joanna Chen MCHC (RBC) [Mass/Vol] 31.5 g/dL Normal 29.9-35.2 [facility] Comment on above: Performed By: #### H BSANS #### [facility] [address] [place] [address] Dr. Joanna Chen MCV (RBC) [Entitic vol] 92.4 fL Normal 81.0-99.0 [facility] Comment on above: Performed By: #### H BSANS #### [facility] [address] [place] [address] Dr. Joanna Chen MONO # 1.2 103/ul Critically high 0.3-0.8 [facility] Comment on above: Performed By: #### H BSANS #### [facility] [address] [place] [address] Dr. Joanna Chen Monocytes/100 WBC (Bld) 7.2 % Normal 1.7-12.0 [facility] Comment on above: Performed By: #### H BSANS #### [facility] [address] [place] [address] Dr. Joanna Chen NEUT # 13.0 103/ul Critically high 1.4-6.5 [facility] Comment on above: Performed By: #### H BSANS #### [facility] [address] [place] [address] Dr. Joanna Chen Neutrophils/100 WBC (Bld) 80.7 % Critically high 43.0-75.0 [facility] Comment on above: Performed By: #### H BSANS #### [facility] [address] [place] [address] Dr. Joanna Chen Platelet mean volume (Bld) [Entitic vol] 10.0 fL Normal 9.5-13.5 [facility] Comment on above: Performed By: #### H BSANS #### [facility] [address] [place] [address] Dr. Joanna Chen PLT 181 103/ul Normal 150-450 [facility] Comment on above: Performed By: #### H BSANS #### [facility] [address] [place] [address] Dr. Joanna Chen RBC 3.43 106/ul Critically low 4.20-5.40 [facility] Comment on above: Performed By: #### H BSANS #### [facility] [address] [place] [address] Dr. Joanna Chen WBC 16.1 103/ul Critically high 4.0-11.0 [facility] Comment on above: Performed By: #### H BSANS #### [facility] [address] [place] [address] Dr. Joanna Chen CBC AUTO DIFFon 02-01-2022 BASO # 0.0 103/ul Normal 0.0-0.1 [facility] Comment on above: Performed By: #### G LU1HR #### [facility] [address] [place] [address] Dr. Joanna Chen Basophils/100 WBC (Bld) 0.2 % Normal 0.2-2.0 [facility] Comment on above: Performed By: #### G LU1HR #### [facility] [address] [place] [address] Dr. Joanna Chen EO # 0.0 103/ul Normal 0.0-0.7 [facility] Comment on above: Performed By: #### G LU1HR #### [facility] [address] [place] [address] Dr. Joanna Chen Eosinophils/100 WBC (Bld) 0.2 % Critically low 0.9-7.0 [facility] Comment on above: Performed By: #### G LU1HR #### [facility] [address] [place] [address] Dr. Joanna Chen Erythrocyte distribution width (RBC) [Ratio] 13.8 % Normal 11.0-15.0 [facility] Comment on above: Performed By: #### G LU1HR #### [facility] [address] [place] [address] Dr. Joanna Chen Hematocrit (Bld) [Volume fraction] 36.2 % Normal 36.0-48.0 [facility] Comment on above: Performed By: #### G LU1HR #### [facility] [address] [place] [address] Dr. Joanna Chen Hemoglobin (Bld) [Mass/Vol] 11.8 g/dL Critically low 12.0-16.0 [facility] Comment on above: Performed By: #### G LU1HR #### [facility] [address] [address] [address] Joanna Chen IG # 0.14 10e3/ul Critically high 0.00-0.03 [facility] Comment on above: Performed By: #### G LU1HR #### [facility] [address] [place] [address] Dr. Joanna Chen IG % 1.0 % Critically high 0.0-0.5 [facility] Comment on above: Performed By: #### G LU1HR #### [facility] [address] [place] [address] Dr. Joanna Chen LYMPH # 2.0 103/ul Normal 1.2-3.8 [facility] Comment on above: Performed By: #### G LU1HR #### [facility] [address] [place] [address] Dr. Joanna Chen Lymphocytes/100 WBC (Bld) 14.5 % Critically low 20.5-60.0 [facility] Comment on above: Performed By: #### G LU1HR #### [facility] [address] [place] [address] Dr. Joanna Chen MANUAL DIFF REQ NO Normal [facility] Comment on above: Performed By: #### G LU1HR #### [facility] [address] [place] [address] Dr. Joanna Chen MCH (RBC) [Entitic mass] 29.2 pg Normal 26.7-34.0 [facility] Comment on above: Performed By: #### G LU1HR #### [facility] [address] [place] [address] Dr. Joanna Chen MCHC (RBC) [Mass/Vol] 32.6 g/dL Normal 29.9-35.2 [facility] Comment on above: Performed By: #### G LU1HR #### [facility] [address] [place] [address] Dr. Joanna Chen MCV (RBC) [Entitic vol] 89.6 fL Normal 81.0-99.0 [facility] Comment on above: Performed By: #### G LU1HR #### [facility] [address] [address] [address] Joanna Chen MONO # 1.0 103/ul Critically high 0.3-0.8 [facility] Comment on above: Performed By: #### G LU1HR #### [facility] [address] [address] [address] Joanna Chen Monocytes/100 WBC (Bld) 7.2 % Normal 1.7-12.0 [facility] Comment on above: Performed By: #### G LU1HR #### [facility] [address] [address] [address] Joanna Chen NEUT # 10.6 103/ul Critically high 1.4-6.5 [facility] Comment on above: Performed By: #### G LU1HR #### [facility] [address] [address] [address] Joanna Chen Neutrophils/100 WBC (Bld) 76.9 % Critically high 43.0-75.0 [facility] Comment on above: Performed By: #### G LU1HR #### [facility] [address] [address] [address] Joanna Chen Platelet mean volume (Bld) [Entitic vol] 9.7 fL Normal 9.5-13.5 [facility] Comment on above: Performed By: #### G LU1HR #### [facility] [address] [place] [address] Dr. Joanna Chen PLT 203 103/ul Normal 150-450 [facility] Comment on above: Performed By: #### G LU1HR #### [facility] [address] [address] [address] Joanna Chen RBC 4.04 106/ul Critically low 4.20-5.40 [facility] Comment on above: Performed By: #### G LU1HR #### [facility] [address] [address] [address] Joanna Chen WBC 13.8 103/ul Critically high 4.0-11.0 [facility] Comment on above: Performed By: #### G LU1HR #### [facility] [address] [place] [address] Dr. Joanna Chen Covid-19 PCR ([facility])on 01-14 SARS-CoV-2 (COVID-19) RNA MANINDER+probe Ql (Unsp spec) Not detected Normal NOT DETECTED [facility] Comment on above: Result Comment: When [...] for this test is supported by the [employer]'s declaration that [...] used). Performed By: #### G LU1HR #### [facility] [address] [place] [address] Dr. Joanna Chen DRUG SCREEN RAPID (URINE)on 02-01-2022 AMP Negative Normal NEGATIVE [facility] Comment on above: Performed By: #### H BSANS #### [facility] [address] [place] [address] Dr. Joanna Chen BAR Negative Normal NEGATIVE [facility] Comment on above: Performed By: #### H BSANS #### [facility] [address] [place] [address] Dr. Joanna Chen BUP Negative Normal NEGATIVE [facility] Comment on above: Performed By: #### H BSANS #### [facility] [address] [place] [address] Dr. Joanna Chen BZO Negative Normal NEGATIVE [facility] Comment on above: Performed By: #### H BSANS #### [facility] [address] [place] [address] Dr. Joanna Chen HALLE Negative Normal NEGATIVE [facility] Comment on above: Performed By: #### H BSANS #### [facility] [address] [place] [address] Dr. Joanna Chen CUT-OFFS SEE BELOW Normal [facility] Comment on above: Result Comment: AMP [...] ng/mL Performed By: #### H BSANS #### [facility] [address] [place] [address] Dr. Joanna Chen DRUG CUT HEADER DRUG CLASS TEST SYST EM CUT-OFF CONCENTRATIONS ARE FOLLOWS: Normal [facility] Comment on above: Performed By: #### H BSANS #### [facility] [address] [place] [address] Dr. Joanna Chen mAMP Negative Normal NEGATIVE [facility] Comment on above: Performed By: #### H BSANS #### [facility] [address] [place] [address] Dr. Joanna Chen MTD Negative Normal NEGATIVE [facility] Comment on above: Performed By: #### H BSANS #### [facility] [address] [place] [address] Dr. Joanna Chen OPI Negative Normal NEGATIVE [facility] Comment on above: Performed By: #### H BSANS #### [facility] [address] [place] [address] Dr. Joanna Chen OXY Negative Normal NEGATIVE [facility] Comment on above: Performed By: #### H BSANS #### [facility] [address] [place] [address] Dr. Joanna Chen PCP Negative Normal NEGATIVE [facility] Comment on above: Performed By: #### H BSANS #### [facility] [address] [address] [address] Joanna Chen PPX Negative Normal NEGATIVE [facility] Comment on above: Performed By: #### H BSANS #### [facility] [address] [address] [address] Joanna Chen TCA Negative Normal NEGATIVE [facility] Comment on above: Performed By: #### H BSANS #### [facility] [address] [place] [address] Dr. Joanna Chen THC Negative Normal NEGATIVE [facility] Comment on above: Performed By: #### H BSANS #### [facility] [address] [place] [address] Dr. Joanna Chen TYPE AND SCREENon 02-01-2022 TYPE AND SCREEN Negative Normal [facility] Comment on above: Performed By: #### C MP, PREGQNT #### [facility] [address] [place] [address] Dr. Joanna Cehn UA (CLEAN/CATCH) CARE PROGRAM DIRECTOR/MICRO I F IND.on 02-01-2022 Bilirubin Ql (U) Negative Normal NEGATIVE [facility] Comment on above: Performed By: #### U ACSPRIETO UMICRO #### [facility] [address] [place] [address] Dr. Joanna Chen Clarity (U) CLEAR Normal CLEAR [facility] Comment on above: Performed By: #### U ACSPRIETO UMICRO #### [facility] [address] [place] [address] Dr. Joanna Chen Color (U) LT. YELLOW Normal YELLOW [facility] Comment on above: Performed By: #### U ACSPRIETO, UMICRO #### [facility] [address] [place] [address] Dr. Joanna Chen Glucose Ql (U) Negative Normal NEGATIVE [facility] Comment on above: Performed By: #### U ACSPRIETO, UMICRO #### [facility] [address] [place], [place] [id number] Dr. Joanna Chen Hemoglobin Ql (U) Negative Normal NEGATIVE [facility] Comment on above: Performed By: #### U ACSIND, UMICRO #### [facility] [address] [address] [address] Joanna Chen Ketones Ql (U) Negative Normal NEGATIVE [facility] Comment on above: Performed By: #### U ACSIND, UMICRO #### [facility] [address] [address] [address] Joanna Chen LEUKOCYTES TRACE Abnormal NEGATIVE [facility] Comment on above: Performed By: #### U ACSIND, UMICRO #### [facility] [address] [address] [address] Joanna Chen Nitrite Ql (U) Negative Normal NEGATIVE [facility] Comment on above: Performed By: #### U ACSIND, UMICRO #### [facility] [address] [place] [address] Dr. Joanna Chen pH (U) 7.0 [pH] Normal 5-9 [facility] Comment on above: Performed By: #### U ACSIND, ICRO #### [facility] [address] [address] [address] Joanna Chen SPEC GRAVITY 1.010 Normal 1.005-<=1.0 25 [facility] Comment on above: Performed By: #### U ACSIND, UMICRO #### [facility] [address] [place] [address] Dr. Joanna Chen UA PROTEIN Negative Normal NEGATIVE/ TRACE [facility] Comment on above: Performed By: #### U ACSIND, UMICRO #### [facility] [address] [address] [address] Joanna Chen UR MICRO IND INDICATED Normal [facility] Comment on above: Performed By: #### U ACSIND, UMICRO #### [facility] [address] [place] [address] Dr. Joanna Chen Urobilinogen Qn (U) 0.2 {Frank'U}/dL Normal 0.2 - 1.0 [facility] Comment on above: Performed By: #### U ACSIND, UMICRO #### [facility] [address] [address] [address] Joanna Chen URINE MICROSCOPIC ONLYon BACTERIA NONE SEEN Normal NONE SEEN [facility] Comment on above: Performed By: #### U ACSIND, UMICRO #### [facility] [address] [address] [address] Joanna Chen Bacteria identified Cx Nom (U) NOT INDICATED Normal [facility] Comment on above: Performed By: #### U ACSIND, UMICRO #### [facility] [address] [address] [address] Joanna Chen CAST NONE SEEN Normal NONE SEEN [facility] Comment on above: Performed By: #### U ACSIND, UMICRO #### [facility] [address] [place] [address] Dr. Joanna Chen Crystals LM Nom (Urine sed) NONE SEEN Normal NONE SEEN [facility] Comment on above: Performed By: #### U ACSIND, UMICRO #### [facility] [address] [place] [address] Dr. Joanna Chen Epithelial cells LM Ql (Urine sed) FEW Abnormal NONE SEEN /RARE [facility] Comment on above: Performed By: #### U ACSIND, UMICRO #### [facility] [address] [place] [address] Dr. Joanna Chen MUCOUS NONE SEEN Normal NONE SEEN [facility] Comment on above: Performed By: #### U ACSIND, UMICRO #### [facility] [address] [address] [address] Joanna Chen RBC NONE SEEN Abnormal 0-2 [facility] Comment on above: Performed By: #### U ACSIND, UMICRO #### [facility] [address] [place] [address] Dr. Joanna Chen WBC 0-2 Abnormal NONE SEEN [facility] Comment on above: Performed By: #### U ACSIND, UMICRO #### [facility] [address] [place] [address] Dr. Joanna Chen US PREG BIOPHY W [...] ORQUIDEA RING Date: 2022-02-01 12:34 Normal [facility] GROUP B STREP CULTUREon S. agalactiae Ag Ql (Unsp spec) Culture Observations: NEGATIVE FOR GROUP B STREPTOCOCCUS. Normal [facility] Comment on above: Performed By: #### C MP, PREGQNT #### [facility] [address] [place] [address] Dr. Joanna Chen US PREG REEVAL ABNon [...] ORQUIDEA RING Date: 2021-12-21 16:20 Normal [facility] GLUCOSE - 1HRon 10-30-2021 Glucose [Mass/Vol] 82 mg/dL Normal 74-106 [facility] Comment on above: Performed By: #### G LU1HR #### [facility] [address] [address] [address] Joanna Chen HEMOGRAM AND PLATELon 2021 Hematocrit (Bld) [Volume fraction] 35.0 % Critically low 36.0-48.0 [facility] Comment on above: Performed By: #### H BSANS #### [facility] [address] [place] [address] Dr. Joanna Chen Hemoglobin (Bld) [Mass/Vol] 11.4 g/dL Critically low 12.0-16.0 [facility] Comment on above: Performed By: #### H BSANS #### [facility] [address] [place] [address] Dr. Joanna Chen MCH (RBC) [Entitic mass] 30.2 pg Normal 26.7-34.0 [facility] Comment on above: Performed By: #### H BSANS #### [facility] [address] [place] [address] Dr. Joanna Chen MCHC (RBC) [Mass/Vol] 32.6 g/dL Normal 29.9-35.2 [facility] Comment on above: Performed By: #### H BSANS #### [facility] [address] [place] [address] Dr. Joanna Chen MCV (RBC) [Entitic vol] 92.6 fL Normal 81.0-99.0 [facility] Comment on above: Performed By: #### H BSANS #### [facility] [address] [place] [address] Dr. Joanna Chen PLT 267 103/ul Normal 150-450 [facility] Comment on above: Performed By: #### H BSANS #### [facility] [address] [place] [address] Dr. Joanna Chen RBC 3.78 106/ul Critically low 4.20-5.40 [facility] Comment on above: Performed By: #### H BSANS #### [facility] [address] [place] [address] Dr. Joanna Chen WBC 12.0 103/ul Critically high 4.0-11.0 [facility] Comment on above: Performed By: #### H BSANS #### [facility] [address] [place] [address] Dr. Joanna Chen CHLAMYDIA/GONOCOCCUS MANINDER (SW AB/URINE/PAPon 10-21-2021 Chlamydia trachomatis, MANINDER Negative Normal Negative [facility] Comment on above: Performed By: #### G LU1HR #### [facility] [address] [place] [address] Dr. Joanna Chen Neisseria gonorrhoeae, MANINDER Negative Normal Negative [facility] Comment on above: Performed By: #### G LU1HR #### [facility] [address] [address] [address] Joanna Chen VAGINITIS/VAGINOSIS DNA PROB Cheng 10-20-2021 Earnestine species Negative Normal Negative [facility] Comment on above: Performed By: #### H BSANS #### [facility] [address] [place] [address] Dr. Joanna Chen Gardnerella vaginalis Positive Abnormal Negative [facility] Comment on above: Performed By: #### H BSANS #### [facility] [address] [place] [address] Dr. Joanna Chen Trichomonas vaginalis Negative Normal Negative [facility] Comment on above: Performed By: #### H BSANS #### [facility] [address] [place] [address] Dr. Joanna Chen US PREG INCOMPLETE ANATOMYon 10-19-2021 PREG INCOMPLETE ANATOMY EXAMINATION: US PREG INCOMPLETE ANATOMY HISTORY: screening COMPARISON: 10/01/2021 FINDINGS: presentation: Cephalic Heart rate: 141 bpm Normal anatomy: Right ventricular outflow track, left ventricular outflow tract Other: Single cardiac focus again noted IMPRESSION: Stable single cardiac focus, nonspecific Electronically authenticated by: JESSENIA LOPEZ Date: 2021-10-19 18:33 Normal [facility] US PREG ANATOMY SINGLEon US PREG [...] (44% by ultrasound, 13% by expected); FL/AC: [id number] FL/BPD: 0.661469 HC/AC: 1.977090 GESTATIONAL AGE: Age by EDC: 20 weeks, [...] ORQUIDEA RING Date: 2021-10-01 17:16 Normal [facility] Covid-19 PCR (CVDTBH)on 07-15 SARS-CoV-2 (COVID-19) RNA MANINDER+probe Ql (Unsp spec) Not detected Normal NOT DETECTED [facility] Comment on above: Result Comment: This test is not yet approved or cleared by the [place] FDA. When there are no FDA-approved or cleared tests available, and other criteria are met, FDA can make tests available under an emergency access mechanism called an Emergency Use Authorization (EUA). The EUA for this test is supported by the [employer] of Health and Human Service's (HHS's) declaration [...] SARS-CoV-2. Performed By: #### G LU1HR #### [facility] [address] [place] [address] Dr. Joanna SIMON BOX TEST PT SEND OUTo n 07-27-2021 SENT TO REF LAB 07/27/2021 Normal [facility] Comment on above: Performed By: #### N BOX #### [facility] [address] [place] [address] Dr. Joanna Chen CBC AUTO DIFFon 07-15-2021 BASO # 0.0 103/ul Normal 0.0-0.1 [facility] Comment on above: Performed By: #### G LU1HR #### [facility] [address] [place] [address] Dr. Joanna Chen Basophils/100 WBC (Bld) 0.5 % Normal 0.2-2.0 [facility] Comment on above: Performed By: #### G LU1HR #### [facility] [address] [place] [address] Dr. Joanna Chen EO # 0.0 103/ul Normal 0.0-0.7 [facility] Comment on above: Performed By: #### G LU1HR #### [facility] [address] [place] [address] Dr. Joanna Chen Eosinophils/100 WBC (Bld) 0.5 % Critically low 0.9-7.0 [facility] Comment on above: Performed By: #### G LU1HR #### [facility] [address] [place] [address] Dr. Joanna Chen Erythrocyte distribution width (RBC) [Ratio] 13.3 % Normal 11.0-15.0 [facility] Comment on above: Performed By: #### G LU1HR #### [facility] [address] [place] [address] Dr. Joanna Chen Hematocrit (Bld) [Volume fraction] 39.1 % Normal 36.0-48.0 [facility] Comment on above: Performed By: #### G LU1HR #### [facility] [address] [address] [address] Joanna Chen Hemoglobin (Bld) [Mass/Vol] 13.0 g/dL Normal 12.0-16.0 [facility] Comment on above: Performed By: #### G LU1HR #### [facility] [address] [address] [address] Joanna Chen IG # 0.04 10e3/ul Critically high 0.00-0.03 [facility] Comment on above: Performed By: #### G LU1HR #### [facility] [address] [address] [address] Joanna Chen IG % 0.5 % Normal 0.0-0.5 [facility] Comment on above: Performed By: #### G LU1HR #### [facility] [address] [address] [address] Joanna Chen LYMPH # 1.8 103/ul Normal 1.2-3.8 [facility] Comment on above: Performed By: #### G LU1HR #### [facility] [address] [address] [address] Joanna Chen Lymphocytes/100 WBC (Bld) 20.9 % Normal 20.5-60.0 [facility] Comment on above: Performed By: #### G LU1HR #### [facility] [address] [address] [address] Joanna Chen MANUAL DIFF REQ NO Normal [facility] Comment on above: Performed By: #### G LU1HR #### [facility] [address] [address] [address] Joanna Chen MCH (RBC) [Entitic mass] 29.5 pg Normal 26.7-34.0 [facility] Comment on above: Performed By: #### G LU1HR #### [facility] [address] [address] [address] Joanna Chen MCHC (RBC) [Mass/Vol] 33.2 g/dL Normal 29.9-35.2 [facility] Comment on above: Performed By: #### G LU1HR #### [facility] [address] [place] [address] Dr. Joanna Chen MCV (RBC) [Entitic vol] 88.7 fL Normal 81.0-99.0 [facility] Comment on above: Performed By: #### G LU1HR #### [facility] [address] [place] [address] Dr. Joanna Chen MONO # 0.6 103/ul Normal 0.3-0.8 [facility] Comment on above: Performed By: #### G LU1HR #### [facility] [address] [place] [address] Dr. Joanna Chen Monocytes/100 WBC (Bld) 7.2 % Normal 1.7-12.0 [facility] Comment on above: Performed By: #### G LU1HR #### [facility] [address] [place] [address] Dr. Joanna Chen NEUT # 6.1 103/ul Normal 1.4-6.5 [facility] Comment on above: Performed By: #### G LU1HR #### [facility] [address] [place] [address] Dr. Joanna Chen Neutrophils/100 WBC (Bld) 70.4 % Normal 43.0-75.0 [facility] Comment on above: Performed By: #### G LU1HR #### [facility] [address] [place] [address] Dr. Joanna Chen Platelet mean volume (Bld) [Entitic vol] 9.3 fL Critically low 9.5-13.5 [facility] Comment on above: Performed By: #### G LU1HR #### [facility] [address] [place] [address] Dr. Joanna Chen PLT 241 103/ul Normal 150-450 [facility] Comment on above: Performed By: #### G LU1HR #### [facility] [address] [address] [address] Joanna Chen RBC 4.41 106/ul Normal 4.20-5.40 [facility] Comment on above: Performed By: #### G LU1HR #### [facility] [address] [address] [address] Joanna Chen WBC 8.7 103/ul Normal 4.0-11.0 [facility] Comment on above: Performed By: #### G LU1HR #### [facility] [address] [place] [address] Dr. Joanna Chen PREG QUANT HCGon 07-15-2021 HCG QUANT 50127 mIU/mL Normal [facility] Comment on above: Performed By: #### C MP, PREGQNT #### [facility] [address] [place] [address] Dr. Joanna Chen HCG RANGE SEE BELOW Normal [facility] Comment on above: Result Comment: 5-50 0-1 WEEK 40-300 1-2 WEEKS 100-1,000 2-3 WEEKS 500-6,000 3-4 WEEKS 5,000-200,000 1-2 MONTHS 10,000-100,000 2-3 MONTHS 3,000-50,000 2ND TRIMESTER 1,000-50,000 3RD TRIMESTER Performed By: #### C MP, PREGQNT #### [facility] [address] [place] [address] Dr. Joanna Chen PROF 14(COMP METB)on 021 Albumin [Mass/Vol] 3.6 g/dL Normal 3.5-5.0 [facility] Comment on above: Performed By: #### C MP, PREGQNT #### [facility] [address] [place] [address] Dr. Joanna Chen Albumin/Globulin [Mass ratio] 1.0 {ratio} Normal [facility] Comment on above: Performed By: #### C MP, PREGQNT #### [facility] [address] [place] [address] Dr. Joanna Chen ALP [Catalytic activity/Vol] 43 U/L Normal 38-126 [facility] Comment on above: Performed By: #### C MP, PREGQNT #### [facility] [address] [address] [address] Joanna Chen ALT [Catalytic activity/Vol] 21 U/L Normal 9-52 [facility] Comment on above: Performed By: #### C MP, PREGQNT #### [facility] [address] [address] [address] Joanna Chen Anion gap [Moles/Vol] 11.5 mmol/L Normal [facility] Comment on above: Performed By: #### C MP, PREGQNT #### [facility] [address] [address] [address] Joanna Chen AST [Catalytic activity/Vol] 18 U/L Normal 14-36 [facility] Comment on above: Performed By: #### C MP, PREGQNT #### [facility] [address] [address] [address] Joanna Chen Bilirubin [Mass/Vol] 0.4 mg/dL Normal 0.2-1.3 [facility] Comment on above: Performed By: #### C MP, PREGQNT #### [facility] [address] [address] [address] Joanna Chen Calcium [Mass/Vol] 9.3 mg/dL Normal 8.4-10.2 [facility] Comment on above: Performed By: #### C MP, PREGQNT #### [facility] [address] [address] [address] Joanna Chen Chloride [Moles/Vol] 102 mmol/L Normal 98-107 [facility] Comment on above: Performed By: #### C MP, PREGQNT #### [facility] [address] [address] [address] Joanna Chen CO2 [Moles/Vol] 25.5 mmol/L Normal 22.0-30.0 [facility] Comment on above: Performed By: #### C MP, PREGQNT #### [facility] [address] [address] [address] Joanna Chen Creatinine [Mass/Vol] 0.54 mg/dL Normal 0.52-1.04 [facility] Comment on above: Performed By: #### C MP, PREGQNT #### [facility] [address] [place] [address] Dr. Joanna Chen EGFR-AF HUNGARIAN >60 Normal >=60 [facility] Comment on above: Performed By: #### C MP, PREGQNT #### [facility] [address] [place] [address] Dr. Joanna Chen EGFR-NON AF HUNGARIAN >60 Normal >=60 [facility] Comment on above: Performed By: #### C MP, PREGQNT #### [facility] [address] [place] [address] Dr. Joanna Chen Globulin (S) [Mass/Vol] 3.7 g/dL Normal [facility] Comment on above: Performed By: #### C MP, PREGQNT #### [facility] [address] [place] [address] Dr. Joanna Chen Glucose [Mass/Vol] 90 mg/dL Normal 74-106 [facility] Comment on above: Performed By: #### C MP, PREGQNT #### [facility] [address] [place] [address] Dr. Joanna Chen Potassium [Moles/Vol] 4.0 mmol/L Normal 3.4-5.0 [facility] Comment on above: Performed By: #### C MP, PREGQNT #### [facility] [address] [place] [address] Dr. Joanna Chen Protein [Mass/Vol] 7.3 g/dL Normal 6.1-8.2 [facility] Comment on above: Performed By: #### C MP, PREGQNT #### [facility] [address] [place] [address] Dr. Joanna Chen Sodium [Moles/Vol] 135 mmol/L Critically low 137-145 [facility] Comment on above: Performed By: #### C MP, PREGQNT #### [facility] [address] [place] [address] Dr. Joanna Chen Urea nitrogen [Mass/Vol] 8.0 mg/dL Normal 7.0-17.0 [facility] Comment on above: Performed By: #### C DARRYN, PREGQNT #### [facility] [address] [address] [address] Joanna Chen Urea nitrogen/Creatinin e [Mass ratio] 14.8 mg/mg Normal [facility] Comment on above: Performed By: #### C DARRYN, PREGQNT #### [facility] [address] [address] [address] Joanna Chen US PREG TVon 07-15-2021 [...] ORQUIDEA RING Date: 2021-07-15 10:52 Normal [facility] RPR QUANTon 07-06-2021 Rapid Plasma Reagin, Quant Non-Reactive Normal NonRea<1:1 [facility] Comment on above: Performed By: #### G LU1HR #### [facility] [address] [address] [address] Joanna Chen RUBELLA AB IGGon 07-06-2021 Rubella Antibodies, IgG 2.68 index Normal Immune >0.99 [facility] Comment on above: Result Comment: Non- immune <0.90 Equivocal 0.90 - 0.99 Immune >0.99 Performed By: #### C MP, PREGQNT #### [facility] [address] [address] [address] Joanna Chen HEP B SURFACE ANTIGEN SCREEN on 07-05-2021 HBsAg Screen Negative Normal Negative [facility] Comment on above: Performed By: #### H BSANS #### [facility] [address] [place] [address] Dr. Joanna Chen HEPATITIS C VIRUS AB W/ REFL EX QUANTon 07-05-2021 HCV AB <0.1 Normal 0.0-0.9 [facility] Comment on above: Performed By: #### H BSANS #### [facility] [address] [place] [address] Dr. Joanna Chen Interpretation: Comment Normal [facility] Comment on above: Result Comment: Nega tive Not infected with HCV, unless recent infection is suspected or other evidence exists to indicate HCV infection. Performed By: #### H BSANS #### [facility] [address] [place] [address] Dr. Joanna Chen HIV 1 AND 2 WITH REFLEXon HIV Screen 4th Generation wRfx Non-Reactive Normal Non Reactive [facility] Comment on above: Performed By: #### H IV12 #### [facility] [address] [place] [address] Dr. Joanna Chen CBC AUTO DIFFon 07-04-2021 BASO # 0.1 103/ul Normal 0.0-0.1 [facility] Comment on above: Performed By: #### G LU1HR #### [facility] [address] [place] [address] Dr. Joanna Chen Basophils/100 WBC (Bld) 0.5 % Normal 0.2-2.0 [facility] Comment on above: Performed By: #### G LU1HR #### [facility] [address] [place] [address] Dr. Joanna Chen EO # 0.1 103/ul Normal 0.0-0.7 [facility] Comment on above: Performed By: #### G LU1HR #### [facility] [address] [place] [address] Dr. Joanna Chen Eosinophils/100 WBC (Bld) 0.5 % Critically low 0.9-7.0 [facility] Comment on above: Performed By: #### G LU1HR #### [facility] [address] [place] [address] Dr. Joanna Chen Erythrocyte distribution width (RBC) [Ratio] 13.0 % Normal 11.0-15.0 [facility] Comment on above: Performed By: #### G LU1HR #### [facility] [address] [place] [address] Dr. Joanna Chen Hematocrit (Bld) [Volume fraction] 39.3 % Normal 36.0-48.0 [facility] Comment on above: Performed By: #### G LU1HR #### [facility] [address] [place] [address] Dr. Joanna Chen Hemoglobin (Bld) [Mass/Vol] 12.8 g/dL Normal 12.0-16.0 [facility] Comment on above: Performed By: #### G LU1HR #### [facility] [address] [place] [address] Dr. Joanna Chen IG # 0.04 10e3/ul Critically high 0.00-0.03 [facility] Comment on above: Performed By: #### G LU1HR #### [facility] [address] [place] [address] Dr. Joanna Chen IG % 0.4 % Normal 0.0-0.5 [facility] Comment on above: Performed By: #### G LU1HR #### [facility] [address] [place] [address] Dr. Joanna Chen LYMPH # 2.6 103/ul Normal 1.2-3.8 [facility] Comment on above: Performed By: #### G LU1HR #### [facility] [address] [place] [address] Dr. Joanna Chen Lymphocytes/100 WBC (Bld) 28.1 % Normal 20.5-60.0 [facility] Comment on above: Performed By: #### G LU1HR #### [facility] [address] [place] [address] Dr. Joanna Chen MANUAL DIFF REQ NO Normal [facility] Comment on above: Performed By: #### G LU1HR #### [facility] [address] [place] [address] Dr. Joanna Chen MCH (RBC) [Entitic mass] 29.2 pg Normal 26.7-34.0 [facility] Comment on above: Performed By: #### G LU1HR #### [facility] [address] [place] [address] Dr. Joanna Chen MCHC (RBC) [Mass/Vol] 32.6 g/dL Normal 29.9-35.2 [facility] Comment on above: Performed By: #### G LU1HR #### [facility] [address] [place] [address] Dr. Joanna Chen MCV (RBC) [Entitic vol] 89.7 fL Normal 81.0-99.0 [facility] Comment on above: Performed By: #### G LU1HR #### [facility] [address] [place] [address] Dr. Joanna Chen MONO # 0.8 103/ul Normal 0.3-0.8 [facility] Comment on above: Performed By: #### G LU1HR #### [facility] [address] [place] [address] Dr. Joanna Chen Monocytes/100 WBC (Bld) 8.4 % Normal 1.7-12.0 [facility] Comment on above: Performed By: #### G LU1HR #### [facility] [address] [place] [address] Dr. Joanna Chen NEUT # 5.7 103/ul Normal 1.4-6.5 [facility] Comment on above: Performed By: #### G LU1HR #### [facility] [address] [place] [address] Dr. Joanna Chen Neutrophils/100 WBC (Bld) 62.1 % Normal 43.0-75.0 [facility] Comment on above: Performed By: #### G LU1HR #### [facility] [address] [place] [address] Dr. Joanna Chen Platelet mean volume (Bld) [Entitic vol] 9.6 fL Normal 9.5-13.5 [facility] Comment on above: Performed By: #### G LU1HR #### [facility] [address] [place] [address] Dr. Joanna Chen PLT 277 103/ul Normal 150-450 [facility] Comment on above: Performed By: #### G LU1HR #### [facility] [address] [place] [address] Dr. Joanna Chen RBC 4.38 106/ul Normal 4.20-5.40 [facility] Comment on above: Performed By: #### G LU1HR #### [facility] [address] [place] [address] Dr. Joanna Chen WBC 9.2 103/ul Normal 4.0-11.0 [facility] Comment on above: Performed By: #### G LU1HR #### [facility] [address] [place] [address] Dr. Joanna Chen CULTURE URINEon 07-04-2021 CULTURE URINE Culture Observations : NO GROWTH. Normal [facility] Comment on above: Performed By: #### U RCX #### [facility] [address] [place] [address] Dr. Joanna Chen GLYCOHEMOGLOBIN A1Con 2020 ADA RECOMMENDATION ADA THERAPEUTIC TARG ET 6.0 - 7.0 ACTION SUGGESTED > 7.0 Normal [facility] Comment on above: Performed By: #### A 1C #### [facility] [address] [place] [address] Dr. Joanna Chen Glucose [Mass/Vol] 103 mg/dL Normal [facility] Comment on above: Performed By: #### A 1C #### [facility] [address] [place] [address] Dr. Joanna Chen HbA1c (Bld) [Mass fraction] 5.2 % Normal <=6.0 [facility] Comment on above: Performed By: #### A 1C #### [facility] [address] [place] [address] Dr. Joanna Chen TYPE AND SCREENon 07-04-2021 TYPE AND SCREEN Negative Normal [facility] Comment on above: Performed By: #### C MP, PREGQNT #### [facility] [address] [place] [address] Dr. Joanna Chen US PREG TVon 07-03-2021 [...] by: JESSENIA LOPEZ Date: 2021-07-03 07:14 Normal [facility] Coding Summary.on 03-31-2020 Coding Summary. CODING DATE: [address] [facility] STATUS: Home (Routine DC) PAYOR: [place] ADMIT DX: REASON FOR VISIT DX: Z01.812 [...] CphT Date Saved: 03/31/2020 10:26 am Normal [facility] Physician Orderon 03-19-2020 Physician Order [id number] [facility] Ambulatory Clinical Summaryo n 02-05-2020 Ambulatory Clinical Summary {[id number] [facility] Coding Summary.on 02-04-2020 Coding Summary. CODING DATE: 020 FINAL [facility] STATUS: Home (Routine DC) PAYOR: Lida APC DESCRIPTION 5301 Level 1 Upper GI Procedures ADMIT DX: REASON FOR VISIT DX: R10.13 Epigastric pain FINAL DX: PRINCIPAL: K29.70 Gastritis, unspecified, without bleeding SECONDARY: PYMT PROC APC STAT DESCRIPTION DOCTOR NAME DATE [id number] T Teddy HERNANDEZ MD 01/25/2020 phagogastroduodenoscopy, flexible, transoral; with biopsy, single or multiple [id number] Anesthesia for upper 01/25/2020 gastrointestinal endoscopic procedures, endoscope introduced proximal to duodenum; not otherwise specified NOTE: The code number assigned matches the documented diagnosis and / or procedure in the patient's chart. However, the narrative phrase printed from the coding software may appear abbreviated, or result in slightly different terminology. Revised Coded By: Constance Means Revised Date Saved: 02/04/2020 12:[address] [facility] IntraOperative Documentson 0 01-29-2020 IntraOperative Documents [id number]:[address] [facility] Postoperative Documentson Postoperative Documents [id number]#[id number]:[address] [facility] Main OR Intraoperative Recor don 01-28-2020 Main OR Intraoperative Record IntraOp Document Type FT Summary Primary Physician: Teddy HERNANDEZ MD Finalized Date/Time: 01/28/20 09:11:27 Pt. Name: VERÓNICA RIVERS/Sex: 1995 Female Med Rec #: [id number] Physician: Teddy HERNANDEZ MD Financial #: [id number] Pt. Type: O Room/Bed: / Admit/Disch: 01/25/20 [...] 1 Entry 2 Entry 3 Case Attendee Nura Davis DO, Manuel HERNANDEZ MD, Teddy Pruett CST, Rod Altamirano Role Performed Anesthesiologist of Surgeon - Primary Scrub - Primary Record Time In 01/25/20 10:06:00 01/25/20 10:06:00 01/25/20 10:06:00 Time Out 01/25/20 10:18:00 01/25/20 10:18:00 01/25/20 10:18:00 Procedure EGD(.) EGD(.) EGD(.) Comments Last Modified By: Lorena Singleton RN, RN, Kimberly Y Barbee RN, Kimberly Y 01/25/20 10:18:20 01/25/20 10:18:20 01/25/20 10:18:20 Entry 4 Case Attendee Lorena Singleton RN Role Performed Javascript Software Engineer - Primary Time In 01/25/20 10:06:00 Time [...] (If Applicable) PreOp Antibiotic No Time Out Teddy HERNANDEZ MD, Given Participants Seble BALDERAS, Rod Altamirano, Areli EARLY, Nura Rashid Jr., [...] Procedure Yes Primary Surgeon Teddy HERNANDEZ MD Start 01/25/20 10:09:00 Stop 01/25/20 10:15:00 Anesthesia Type [...] GASTRITIS Outcomes Met? Yes Last Modified By: Lorean Singleton RN 01/25/20 10:23:27 Post-Care Text: The patient is free from signs and symptoms of infection Skin Assessment (Pre Procedure) FT Pre-Care Text: Implements protective measures to prevent skin/ tissue injury due to thermal or mechanical sources Evaluates for signs and symptoms of physical injury to skin and tissue Entry 1 Skin Integrity Intact, [place], Warm, and Skin Abnormality No Dry Outcomes [...] injury related to transfer/transport Departure From OR Pre-Care Text: Transports according to individual [...] Comments: REPORT GIVEN TO PACU NURSE. 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 Consenton 01-25-2020 Consent [id number]#1.00CD:[address] [facility] Consent for Treatmenton 01-13 Consent for Treatment [id number]#1.00CD:[address] [facility] Discharge Instructionson Discharge Instructions [id number]#1.00CD:[address] [facility] History and Physicalon 01-24 History and Physical [id number]#1.00CD:127 Normal [facility] History and Physical Patient: VERÓNICA RIVERS Age: 24 years Sex: Female : 1995 Associated Diagnoses: None Author: Teddy HERNANDEZ MD Subjective no changes to H & P [facility] Comment on above: Result Comment: Elec tronically Signed By: Teddy HERNANDEZ MD\.br\Date and Time Signed: 01/25/20 09:47 EDT Inpatient Patient Summaryon 01-25-2020 Inpatient Patient Summary [place] [id number] [facility] Clinical Discharge Instructions PERSON INFORMATION Name: VERÓNICA RIVERS PHYSICIANS Admitting Physician: Teddy HERNANDEZ MD Attending Physician: Teddy HERNANDEZ MD PCP: Marcello Byrd MD Discharge Diagnosis: Antral gastritis Comment: PATIENT EDUCATION INFORMATION Instructions: Medication Leaflets: Follow up: With: Address: When: Teddy HERNANDEZ [address] [place] [address], [address] [address] [facility] (1) Within 7 to 10 days MEDICATION LIST Medications to Continue with No Changes Other Medications ethinyl estradiol-norethindrone (Nortrel oral tablet) 1 Tablets By Mouth every day. Comment: Normal [facility] IntraOperative Documentson 0 01-25-2020 IntraOperative Documents [id number]#1.00CD:[address] [facility] IntraOperative Documents [id number]#1.00CD:[address] [facility] Main OR PACU I Recordon 01-13 Main OR PACU I Record PACU Phase I Document Type FT Summary Primary Physician: Teddy HERNANDEZ MD Finalized Date/Time: 01/25/20 10:57:36 Pt. Name: VERÓNICA RIVERS/Sex: 1995 Female Med Rec #: [id number] Physician: Teddy HERNANDEZ MD Financial #: [id number] Pt. Type: O Room/Bed: / Admit/Disch: 01/25/20 [...] Acuity Level I Last Modified By: Angela eMza RN 01/25/20 10:57:35 Finalized By: Angela Meza RN Document Signatures Signed By: Angela Meza RN 01/25/20 10:57 Normal [facility] Main OR Preoperative Recordo n 01-25-2020 Main OR Preoperative Record Holding Area Document Type FT Summary Primary Physician: Teddy HERNANDEZ MD Finalized Date/Time: 01/25/20 09:50:47 Pt. Name: VERÓNICA RIVERS Filipe Keller/Sex: 1995 Female Med Rec #: [id number] Physician: Teddy HERNANDEZ MD Financial #: [id number] Pt. Type: O Room/Bed: / Admit/Disch: 01/25/20 [...] By: Krystal Valdez RN 01/25/20 09:50 Normal [facility] Monitor Recordon 01-25-2020 Monitor Record [id number]#[id number]:[address] [facility] Operative Reporton 0 Operative Report Date [...] in good condition. Nima Stevens Dictated: 01/25/2020 #[id number] Typed: 01/25/2020 #[id number] cc: Nima Higginbotham M.D. [facility] Comment on above: Result Comment: Elec tronically Signed By: SHAHZAD VALLE, Teddy Bhatia\Date and Time Signed: 01/25/20 12:21 EDT Patient Education - Texton 0 01-25-2020 Patient Education - Text Normal [facility] Progress Note-Physicianon Progress Note-Physician Patient: VERÓNICA RIVERS [facility]: [id number] Age: 24 years Sex: Female : 1995 [...] All Problems Chronic tonsillitis / SNOMED CT 481338927 / Confirmed Abdominal pain, epigastric / SNOMED CT 595921702 / Confirmed Abdominal pain, left upper quadrant / SNOMED CT 475303278 / Confirmed Loss of appetite / SNOMED CT 234040746 / Confirmed Migraine / SNOMED CT 55516686 / Confirmed Nausea in adult / SNOMED CT 8852255229 / Confirmed Patellofemoral syndrome / SNOMED CT 1962271024 / Confirmed Raynaud's syndrome / SNOMED CT 031558066 / Confirmed, Active Problems (8) Abdominal pain, epigastric Abdominal pain, left upper quadrant Chronic tonsillitis Loss of appetite Migraine Nausea in adult Patellofemoral syndrome Raynaud's syndrome Histories Past Medical History: No active or resolved past medical history items have been selected or recorded. Family History: No family history items have been selected or recorded. Procedure history: Arthroscopy of knee ([id number]). Comments: 12/25/2019 14:10 EDT - Roxanne Morales LPN 2014 or 2016 Social History Social & Psychosocial Habits Alcohol [...] review: No qualifying data available . Plan [place] [employer] Anesthesiologists (ASA) physical status classification: Class II. Anesthetic Preoperative Plan Anesthesia: Monitored anesthesia care and general anesthesia if required.. Anesthetic plan, risks, benefits, and alternatives discussed with the patient and/or family. Pt. and/or family present and agree to proceed as planned.. Normal [facility] Comment on above: Result Comment: Elec tronically Signed By: Manuel Lyman Jr., DO\.br\Date and Time Signed: 01/25/20 09:57 EDT Vital Signs Date Time Vital Sign Value Performing Clinician Bishop guan 09-20-2023 09:51-0500 Body weight 89.41 kg Dionisio Ruth DO Work Phone: [facility] 09-20-2023 09:51-0500 Diastolic blood pressure 70 mm[Hg] Dionisoi Ruth DO Work Phone: [facility] 09-20-2023 09:51-0500 Systolic blood pressure 114 mm[Hg] Dionisio Ruth DO Work Phone: [facility] Encounters Encounter Date Encounter Type Care Provider Facility Start: 08-30-2024 End: 08-30-2024 Bamboo flowsheet Dionisio Ruth DO Work Phone: [facility] Start: 08-30-2024 End: 08-30-2024 Bamboo flowsheet Dionisio Ruth DO Work Phone: [facility] Start: 02-06-2024 End: 02-06-2024 ambulatory DIONISIO RUTH Not Available Start: 12-28-2023 End: 12-28-2023 ambulatory DIONISIO RUTH Not Available Start: 12-14-2023 End: 12-14-2023 ambulatory DIONISIO RUTH [...] flow sheet Dionisio Ruth DO Work Phone: [facility] Comment on above: Second trimester pre gnancy; Placental abnormality in second trimester Start: 09-20-2023 End: 09-20-2023 ambulatory DIONISIO RUTH Not Available Start: 08-23-2023 End: 08-23-2023 ambulatory DIONISIO RUTH Not Available Start: 07-20-2023 End: 12-06-2023 ambulatory DIONISIO RUTH Not Available Start: 05-26-2022 [...] EST Routine [facility] [address] [place] [id number] Dionisio Miranda, [address] [place], [place] [id number] [facility] Payers Date Payer Category Payer Private Health Insurance [facility] [id number] 2022 Unknown [employer] [id number] 2022-Present [phone] [address] [address] [place] [address] [id number] 2022 Unknown [id number] 1995 Unknown [id number] 2.16.840.1.051871.3.579 .2.593 1995 Unknown [id number] 2.16.840.1.422364.3.579 .2.593 1995 Unknown [id number] 2.16.840.1.234938.3.579 .2.593 1995 Unknown [id number] 2.16.840.1.072577.3.579 .2.593 1995 Unknown [id number] 2.16.840.1.906547.3.579 .2.593 1995 Unknown [id number] 2.16.840.1.898678.3.579 .2.593 1995 Unknown [id number] 2.16.840.1.158073.3.579 .2.593 1997 Unknown [id number] 2.16.840.1.644658.3.579 .2.59 1997 Unknown [id number] 2.16.840.1.170874.3.579 .2.59 1995 Unknown [id number] 2.16.840.1.702211.3.579 .2.59 1997 Unknown [id number] 2.16.840.1.433003.3.579 .2.593 1995 Unknown [id number] 2.16.840.1.775703.3.579 .2.593 1997 Unknown [id number] 2.16.840.1.145059.3.579 .2.593 1997 Unknown [id number] 2.16.840.1.784574.3.579 .2.1259 1997 Unknown [id number] 2.16.840.1.657922.3.579 .2.1259 1997 Unknown [id number] 2.16.840.1.314224.3.579 .2.1258 1997 Unknown [id number] 2.16.840.1.628369.3.579 .2.1259 1997 Unknown [id number] 2.16.840.1.660670.3.579 .2.1259 1997 Unknown [id number] 2.16.840.1.499189.3.579 .2.9 1997 Unknown [id number] 2.16.840.1.142965.3.579 .2.9 1997 Unknown [id number] 2.16.840.1.584669.3.579 .2.1258 1997 Unknown [id number] 2.16.840.1.258542.3.579 .2.1258 1997 Unknown [id number] 2.16.840.1.771412.3.579 .2.1258 1997 Unknown [id number] 2.16.840.1.079705.3.579 .2.9 1997 Unknown [id number] 2.16.840.1.548249.3.579 .2.1259 1959 Self-pay 1959 Unknown [id number] 1959 Unknown [id number] 1959 Unknown [id number] Unknown [id number] 2.16.840.1.463467.3.579 .2.593 Social History Date Type Detail Facility Tobacco smoking stat [facility] Tobacco smoking consumption unknown [facility] Start: 04-06-2023 [facility] Start: 1995 Sex Assigned At Female [facility] Start: 04-20-2023 Gender identity Identifies as female gender (finding) [facility] Start: 04-20-2023 Sexual orientation Heterosexual (fin ding) [facility] Start: 12-28-2023 Tobacco smoking stat us [facility] Never smoked tobacco [facility] Start: 12-28-2023 Tobacco use and exposure Smokeless t obacco non-user [facility] Start: 02-06-2024 Alcoholic beverage intake Ex-drinker (finding) [facility] Start: 12-28-2023 History of Social function [facility] Start: 12-28-2023 Tobacco use panel [facility] History of Present illness Narrative [...] includes the following prescription(s): magnesium and vit w/gu-khelsllux-hd. Medical History: Active Ambulatory Problems Diagnosis Date [...] nursing note reviewed. Exam conducted with a oil seal assembler present. Vitals: There is no height or [...] Dionisio Miranda DO documented in this encounter [facility] Clinical Note 02-01-2022 Note Date & Type Note Facility 02-01-2022 Note [facility] [place], [place] NAME: VERÓNICA DECKER DATE OF : MEDICAL REC#: [id number] NATURAL GAS ENGINEER: 1602 ISMAEL LOZANO ADMIT DATE: 02/01/2022 07:59:00 LOCAL GOVERNMENT LEGISLATOR DATE: 02/02/2022 22:13 DICTATING PHYSICIAN: DIONISIO MIRANDA [...] Spinal with Duramorph. SURGEON: Dionisio Miranda D.O. SIDEHAND: THERESE Abbasi URINE OUTPUT: Yellow and clear. [...] Miranda DO on 02/04/2022 10:17 AM EDT [facility] Signed and Approved by: DR DIONISIO MIRANDA . 02/04/2022 10:17:00 [facility] Discharge summary note 02-01-2022 Note Date [...] pain free and no longer on narcotics. [facility] Signed and Approved by: DR DIONISIO MIRANDA . 02/07/2022 10:46:00 [facility] Evaluation note Note Date & Type [...] All Problems Chronic tonsillitis / SNOMED CT 076788476 / Confirmed Abdominal pain, epigastric / SNOMED CT 707212225 / Confirmed Abdominal pain, left upper quadrant / SNOMED CT 217536586 / Confirmed Loss of appetite / SNOMED CT 839662159 / Confirmed Migraine / SNOMED CT 79609895 / Confirmed Nausea in adult / SNOMED CT 4822658309 / Confirmed Patellofemoral syndrome / SNOMED CT 0888646453 / Confirmed Raynaud's syndrome / SNOMED CT 390676994 / Confirmed Physical Examination Intake and Output Pt. denies significant n/v, and is (more content not included)... Additional Source Comments INFORMATION SOURCE (unrecogn ized section and content) DATE CREATED AUTHOR 03/31/2020 [facility] DATE CREATED AUTHOR AUTHOR'S ORGANIZ ATION 06/07/2022 [facility] DATE CREATED AUTHOR AUTHOR'S ORGANIZ ATION 02/06/2024 [facility] EPIC Reason for Visit (unrecogniz ed section and content) Reason Comments Routine Visit Care Teams (unrecognized sec tion and content) Cans Vacuum Tester Relationship Specialty Start Date End Date Marcello Byrd MD [address] [place] [address] PCP - General Family Medicine 05/20/23 Cans Vacuum Tester Relationship Specialty Start Date End Date Marcello Byrd MD [address] [place] [address] [phone] PCP - General Family Medicine 05/20/23 FOR [...] BE BASED ON THE PRIMARY CLINICAL RECORDS. [facility]. provides no warranty or guarantee of the accuracy or completeness of information in this document.
== END 2024-08-30 18:57 | disposition home or self-care (01) ==
LOC: LAB 18:56
PROVIDERS: PCP Family Medicine; Visit Provider Obstetrics & Gynecology
DX: Z01.419 Encounter for gynecological examination (general) (routine) without abnormal findings (principal)
CPT/HCPCS: 88175

== ENCOUNTER 2025-01-27 16:03 | Emergency (ER) | payer OTHER, SELFPAY ==
[2025-01-27 16:08] VITALS: BP 138/91; PULSE 113; TEMP 36.8; O2SAT 100; BMI 25.1
--- OUTSIDE RECORDS SUMMARY | 2025-01-27 16:09 | XMS_ITS | Patient Health Record ---
Author Organization [facility] in [place] Address [address] [place] [address] Care Team Providers Care Ged Teacher Name Role Phone Ludwin Byrd Primary Care Provider [phone] Results Component Value Reference Range Notes IGP,Aptima HPV,Age Gdln Reviewed date:09/05/2024 03:58:03 PM Interpretation: Performing Lab: Notes/Report: BRUSH-SPATULA CERVIX ENDOCERVIX [facility] , Age Gdln ACOG Testing Note . TESTS RESULT FLAG UNITS REF RANGE LAB Clinician Provided Cytology Information Source.............Cervix;Endocer vix No. of containers..01 ThinPrep Vial Age Algo ACOG Daria... FLAG LEGEND: L-Low Normal,H-High Normal,LL-Alert Low,HH-Alert High <-Panic Low,>-Panic High,A-Abnormal,AA-Critical Abnormal Performed at: 01 =G [facility] [place] [address] [place] [address] Carrie Mcgovern MD, IGP, rfx Aptima HPV ASCU Note . TESTS RESULT FLAG UNITS REF RANGE LAB DIAGNOSIS: 02 NEGATIVE FOR INTRAEPITHELIAL LESION OR MALIGNANCY. Specimen adequacy: 02 Satisfactory for evaluation. Endocervical and/or squamous metaplastic cells (endocervical component) are present. Performed by: Jyoti Lee, Alarm Field Technician ([facility]) . 02 Note: Note 02 The Pap smear is a screening test designed to aid in the detection of premalignant and malignant conditions of the uterine cervix. It is not a diagnostic procedure and should not be used as the sole means of detecting cervical cancer. Both false-positive and false-negative reports do occur. Test Methodology: Note 02 This liquid based ThinPrep(R) pap test was screened with the use of an image guided system. . 02 The HPV DNA reflex criteria were not met with this specimen result therefore, no HPV testing was performed. FLAG LEGEND: L-Low Normal,H-High Normal,LL-Alert Low,HH-Alert High <-Panic Low,>-Panic High,A-Abnormal,AA-Critical Abnormal Performed at: 02 WB [facility] [address] [place] [address] Carrie Mcgovern MD, Performed at: =G - [facility] [address] [place], [place] [id number] Bead Preparer: Carrie Mcgovern MD, Phone: [phone] Performed at: - [facility] [address] [place] [id number] Bead Preparer: Carrie Mcgovern MD, Phone: [phone] Performing Lab: see note LC - [facility] Reason For Referral No Information Plan Of Treatment No Information Insurance Providers Payer Name Payer Address Payer Phone Subscriber Number Group Number Insured Name Patient Relationship to Insured Coverage Start Date Coverage End Date [employer] [address] [address] [place] [address] [id number] Verónica Cano Self - patient is the insured
--- OUTSIDE RECORDS SUMMARY | 2025-01-27 16:09 | XMS_ITS | Encounter Summary ---
Author Organization [facility] Address [address] [facility] [place] [address] Care Team Providers Care Lens Blank Gauger Name Role Phone Marcello Byrd MD Primary Care Provider [phone] Encounter Details Date Type Department Care Team (Late st Contact Info) Description 05/21/2023 Clinisync Result Encounter [facility] Department Unsolicited Dionisio Miranda, DO [address], [facility] Social History Tobacco Use Types Packs/Day Years Used Date Smoking Tobacco: Never Assessed Comments Unknown Sex and Gender Information Value Date Recorded Sex Assigned at Female 04/20/2023 5:24 PM EDT Legal Sex Female 11:47 PM EDT Gender Identity Female 04/20/2023 5:24 PM EDT Sexual Orientation Straight 04/20/2023 5: 24 PM EDT COVID-19 Exposure Response Date Recorded In the last 10 days, have yo u been in contact with someone who was confirmed or suspected to have Coronavirus/COVID-19? No / Unsure 05/13/2023 8:59 AM EDT documented as of this encounter Plan of Treatment Upcoming Encounters Date Type Department Care Team (Late st Contact Info) Description 01/31/2025 2:00 PM EDT Ancillary Procedure [facility] [address] [place] [address] 01/31/2025 2:30 PM EDT Initial [facility] [address] [place] [address] 09/03/2025 9:00 AM EST Office Visit [facility] [address] [address] Dionisio Miranda DO [address] [place] [address] [place] [address] documented as of this encounter Procedures Procedure Name Priority Date/Time Associated Diagnosis Comments US OB TRANSVAGINAL 05/21/2023 10 :03 PM EDT documented in this encounter Results * US OB TRANSVAGINAL (05/21/2023 10:03 PM EDT) Anatomical Region Laterality Modality Other 05/21/2023 10:0 3 PM EDT Narrative 05/21/2023 10:03 PM EDT [address] [address] Ultrasound Report Signed Patient: VERÓNICA CANO MR#: [id number] : 1995 Acct:[id number] Age/Sex: 28 / F ADM Date: 05/20/23 Loc: US Attending Dr: Dionisio Miranda D.O. Ordering Physician: Dionisio Miranda D.O. Date of Service: 05/20/23 Procedure(s): US OB transvaginal Accession Number(s): [id number] cc: Dionisio Miranda D.O.; Marcello Byrd M.D. [address] [address] Patient Name: VERÓNICA CANO MRN: [id number] date: 1995 Sex: F Assigned Patient Location: US Current Patient Location: Accession/Order Number: [id number] Exam Date: 05/20/2023 09:24 Report Date: 05/21/2023 22:03 At the request of: DIONISIO MIRANDA Procedure: US OB transvaginal EXAMINATION: US OB transvaginal HISTORY: MISSED MENSES COMPARISON: No relevant comparison available. FINDINGS: GESTATIONAL SAC: Present and normal appearing. YOLK SAC: Present and normal appearing. POLE: Present and normal appearing. CARDIAC: Present. UTERUS: Normal size and appearance. OVARIES: Right: Normal. Left: Normal. CERVIX: 4.6 cm in length and closed. CUL-DE-SAC: Normal. OTHER: None. AGE BY LMP: 8 weeks 2 days MIGUE BY LMP: 12/28/2023 AGE BY US CRL: 8 weeks 2 days MIGUE BY US CRL: 12/28/2023 US/US OB transvaginal IMPRESSION: 1. Single live intrauterine . Electronically authenticated by: GABRIELE HOLCOMB Date: 05/21/2023 22:03 Dictated By: Gabriele Holcomb M.D. Signed By: 05/21/232204 DD/ 02 TD/TT: Filler Shredder Machine: Procedure Note Radiology, Radiologist, MD - 05/21/2023 [place] [address] Ultrasound Report Signed Patient: VERÓNICA CANO GMR#: [id number] : 1995Acct:[id number] Age/Sex: 28 / FADM Date: 05/20/23 Loc: US Attending Dr: Dionisio Miranda D.O. Ordering Physician: Dionisio Miranda D.O. Date of Service: 05/20/23 Procedure(s): US OB transvaginal Accession Number(s): [id number] cc: Dionisio Miranda D.O.; Marcello Byrd M.D. The [place] [id number] Patient Name: VERÓNICA CANO MRN: [id number] date: 1995 Sex: F Assigned Patient Location: US Current Patient Location: Accession/Order Number: [id number] Exam Date: 05/20/2023 09:24 Report Date: 05/21/2023 22:03 At the request of: DIONISIO MIRANDA Procedure: US OB transvaginal EXAMINATION: US OB transvaginal HISTORY: MISSED MENSES COMPARISON: No relevant comparison available. FINDINGS: GESTATIONAL SAC: Present and normal appearing. YOLK SAC: Present and normal appearing. POLE: Present and normal appearing. CARDIAC: Present. UTERUS: Normal size and appearance. OVARIES: Right: Normal. Left: Normal. CERVIX: 4.6 cm in length and closed. CUL-DE-SAC: Normal. OTHER: None. AGE BY LMP: 8 weeks 2 days MIGUE BY LMP: 12/28/2023 AGE BY US CRL: 8 weeks 2 days MIGUE BY US CRL: 12/28/2023 US/US OB transvaginal IMPRESSION: 1. Single live intrauterine . Electronically authenticated by: GABRIELE HOLCOMB Date: 05/21/2023 22:03 Dictated By: Gabriele Holcomb M.D. Signed By:05/21/232204 DD/ 02 TD/TT: Filler Shredder Machine: us Dionisio Miranda DO [facility] Final Result documented in this encounter Visit Diagnoses Not on filedocumented in this encounter Care Teams Lens Blank Gauger Relationship Specialty Start Date End Date Marcello Byrd MD [address] [place] [address] PCP - General Family Medicine 05/20/23 documented as of this encounter
--- OUTSIDE RECORDS SUMMARY | 2025-01-27 16:09 | XMS_ITS | Clinical Summary ---
Author Organization [facility] Address [address] [place] [address] Care Team Providers Care Varnish Blender Name Role Phone Marcello Byrd MD Primary Care Provider [phone] Allergies No known active allergies Medications norethindrone (Micronor) 0.35 MG tabletIndicatio ns:Uses control Take 1 tablet (0.35 mg) by mouth Daily 28 tablet 11 4 01/24/20 25 Discontinu ed(Therapy completed) Drospirenone (Slynd) 4 MG tabletIndicatio ns:Menorrhagia with irregular cycle Take 1 tablet by mouth Daily 84 tablet 3 5 01/24/20 25 Discontinu ed(Therapy completed) Encounters Date Type Department Care Team Description 01/24/2025 Travel from Last 3 Months Social History Tobacco Use Types Packs/Day Years Used Date Smoking Tobacco: Never Smokeless Tobacco: Never Tobacco Cessation:Counseling Given: Not Answered Alcohol Use Standard Drinks/Week Comments Not Currently 0 (1 standard drink = 0.6 oz pur e alcohol) Comments Unknown Sex and Gender Information Value Date Recorded Sex Assigned at Female 04/20/2023 5:24 PM EDT Legal Sex Female 11:47 PM EDT Gender Identity Female 04/20/2023 5:24 PM EDT Sexual Orientation Straight 04/20/2023 5: 24 PM EDT Last Filed Vital Signs Vital Sign Reading Time Taken Comments Blood Pressure 120/82 08/30/2024 8:40 AM EST Pulse - - Temperature - - Respiratory Rate - - Oxygen Saturation - - Inhaled Oxygen Concentration - - Weight 78 kg (172 lb) 08/30/2024 8:40 AM EST Height 167.6 cm (5' 6 ) 12/28/2023 11:49 AM EDT Body Mass Index 27.76 12/28/2023 11:49 AM EDT Plan of Treatment Upcoming Encounters Date Type Department Care Team (Late st Contact Info) Description 01/31/2025 2:00 PM EDT Ancillary Procedure [facility] [address] [facility] [place] [address] 01/31/2025 2:30 PM EDT Initial [facility] [address] [facility] [place] [address] 09/03/2025 9:00 AM EST Office Visit [facility] OB [address] [place] [address] Arcadio Miranda, DO [address] [place] [address] Insurance [employer] Care Teams Varnish Blender Relationship Specialty Start Date End Date Marcello Byrd MD [address] [facility] [address] PCP - General Family Medicine 05/20/23
--- OUTSIDE RECORDS SUMMARY | 2025-01-27 16:09 | XMS_ITS | Encounter Summary ---
Author Organization [facility] Address [address] [facility] [place] [address] Care Team Providers Care Lean Coach Name Role Phone Marcello Byrd MD Primary Care Provider [phone] Encounter Details Date Type Department Care Team (Late st Contact Info) Description 08/10/2023 Clinisync Result Encounter [facility] External Department Unsolicited Dionisio Miranda, DO [address] [place], [id number] Social History Tobacco Use Types Packs/Day Years Used Date Smoking Tobacco: Never Assessed Comments Yes Sex and Gender Information Value Date Recorded [...] suspected to have Coronavirus/COVID-19? No / Unsure 07/13/2023 8:38 AM EST documented as of this encounter Plan of Treatment Upcoming Encounters Date Type Department Care Team (Late st Contact Info) Description 01/31/2025 2:00 PM EDT Ancillary Procedure [facility] OB [address] [place] [address] 01/31/2025 2:30 PM EDT Initial [facility] OB [address] [place] [address] 09/03/2025 9:00 AM EST Office Visit [facility] OB [address] [facility] [address] Dionisio Miranda DO [address] [place] [address] [place] [address] documented as of this encounter Procedures Procedure Name Priority Date/Time Associated Diagnosis Comments US OB TRANSVAGINAL 08/10/2023 9: 17 PM EST documented in this encounter Results * US OB TRANSVAGINAL (08/10/2023 9:17 PM EST) Anatomical Region Laterality Modality Other 08/10/2023 9:17 PM EST Narrative 08/10/2023 9:20 PM EST [address] [address] Ultrasound Report Signed Patient: VERÓNICA CANO MR#: [id number] : 1995 Acct:[id number] Age/Sex: 28 / F ADM Date: 08/10/23 Loc: US Attending Dr: Dionisio Miranda D.O. Ordering Physician: Dionisio Miranda D.O. Date of Service: 08/10/23 Procedure(s): US OB transvaginal Accession Number(s): [id number] cc: Dionisio Miranda D.O.; Marcello Byrd M.D. [address] [address] Patient Name: VERÓNICA CANO MRN: [id number] date: 1995 Sex: F Assigned Patient Location: US Current Patient Location: US Accession/Order Number: [id number] Exam Date: 08/10/2023 09:04 Report Date: 08/10/2023 21:17 At the request of: DIONISIO MIRANDA Procedure: US OB transvaginal EXAMINATION: US OB anatomy, US OB transvaginal HISTORY: SECOND TRIMESTER Z34.92 COMPARISON: Ultrasound OB transvaginal 05/20/2023 TECHNIQUE: Transabdominal sonographic examination was performed for obstetrical and evaluation. FINDINGS: Number: 1 Heart Rate: 145.0 bpm H.B. /min Amniotic Fluid Volume: Subjectively normal Placental Location: ANTERIOR with lower margin 4.9 cm from os. Multiple hypoechoic areas suspected represent venous lakes. Numerous vessels with slightly hypervascular appearance between the placenta and uterine wall; nonspecific. Cervix Length: 4.4 cm; closed. Nabothian cysts noted within cervix. ANATOMY: Normal Structures -cerebellum, choroid plexus, cisterna magna, lateral cerebral ventricles, orbits, midline falx, hard palate, four-chamber heart, RVOT, LVOT, stomach, kidneys, bladder, umbilical cord insertion into abdomen, three-vessel cord, cervical spine, thoracic spine, lumbar spine, sacral spine, right upper extremity, left upper extremity, right lower extremity, left lower extremity. SUBOPTIMALLY SEEN: None ABNORMALITIES: None BIOMETRY: BPD: 4.5 cm 19 weeks 3 days HC: 17.0 cm 19 weeks 5 days AC: 14.8 cm 20 weeks 1 days FL: 3.2 cm 19 weeks 6 days EFW:323.0 grams; 43% FL/AC: 21.6 FL/BPD: 71.5 HC/AC: 1.2 GESTATIONAL AGE: Age by EDC: 20 weeks 0 days MIGUE by EDC: 12/28/2023 Age by current US: 19 weeks 6 days MIGUE by current US: 12/29/2023 US/US OB transvaginal IMPRESSION: 1. Single live intrauterine with growth detailed above. 2. Multiple hypodensities within the placenta suspected to represent venous lakes, and increased vascularity between the placenta and uterus; nonspecific. Electronically authenticated by: GABRIELE HOLCOMB Date: 08/10/2023 21:17 Dictated By: Gabriele Holcomb M.D. Signed By: 08/10/232119 DD/ 16 TD/TT: Telecommunications Field Technician: Procedure Note Radiology, Radiologist, - 10/19/2023 [place] [address] Ultrasound Report Signed Patient: VERÓNICA CANO GMR#: [id number] : 1995Acct:[id number] Age/Sex: 28 / FADM Date: 08/10/23 Loc: US Attending Dr: Dionisio Miranda D.O. Ordering Physician: Dionisio Miranda D.O. Date of Service: 08/10/23 Procedure(s): US OB transvaginal Accession Number(s): [id number] cc: Dionisio Miranda D.O.; Marcello Byrd M.D. [place] [id number] Patient Name: VERÓNICA CANO MRN: [id number] date: 1995 Sex: F Assigned Patient Location: US Current Patient Location: US Accession/Order Number: [id number] Exam Date: 08/10/2023 09:04 Report Date: 08/10/2023 21:17 At the request of: DIONISIO MIRANDA Procedure: US OB transvaginal EXAMINATION: US OB anatomy, US OB transvaginal HISTORY: SECOND TRIMESTER Z34.92 COMPARISON: Ultrasound OB transvaginal 05/20/2023 TECHNIQUE: Transabdominal sonographic examination was performed for obstetrical and evaluation. FINDINGS: Number: 1 Heart Rate: 145.0 bpm H.B. /min Amniotic Fluid Volume: Subjectively normal Placental Location: ANTERIOR with lower margin 4.9 cm from os. Multiple hypoechoic areas suspected represent venous lakes. Numerous vessels with slightly hypervascular appearance between the placenta and uterine wall; nonspecific. Cervix Length: 4.4 cm; closed. Nabothian cysts noted within cervix. ANATOMY: Normal Structures -cerebellum, choroid plexus, cisterna magna, lateral cerebral ventricles, orbits, midline falx, hard palate, four-chamberheart, RVOT, LVOT, stomach, kidneys, bladder, umbilical cord insertion intoabdomen, three-vessel cord, cervical spine, thoracic spine, lumbar spine, sacralspine, right upper extremity, left upper extremity, right lower extremity, leftlower extremity. SUBOPTIMALLY SEEN: None ABNORMALITIES: None BIOMETRY: BPD: 4.5 cm 19 weeks 3 days HC: 17.0 cm 19 weeks 5 days AC: 14.8 cm 20 weeks 1 days FL: 3.2 cm 19 weeks 6 days EFW:323.0 grams; 43% FL/AC: 21.6 FL/BPD: 71.5 HC/AC: 1.2 GESTATIONAL AGE: Age by EDC: 20 weeks 0 days MIGUE by EDC: 12/28/2023 Age by current US: 19 weeks 6 days MIGUE by current US: 12/29/2023 US/US OB transvaginal IMPRESSION: 1. Single live intrauterine with growth detailed above. 2. Multiple hypodensities within the placenta suspected to representvenous lakes, and increased vascularity between the placenta and uterus;nonspecific. Electronically authenticated by: GABRIELE HOLCOMB Date: 08/10/2023 21:17 Dictated By: Gabriele Holcomb M.D. Signed By:08/10/232119 DD/ 16 TD/TT: Telecommunications Field Technician: us Dionisio Miranda DO [facility] Final Result documented in this encounter Visit Diagnoses Not on filedocumented in this encounter Care Teams Lean Coach Relationship Specialty Start Date End Date Marcello Byrd MD [address] [place] [address] PCP - General Family Medicine 05/20/23 documented as of this encounter
--- OUTSIDE RECORDS SUMMARY | 2025-01-27 16:09 | XMS_ITS | Encounter Summary ---
Author Organization [facility] Address [address] [facility] [place] [address] Care Team Providers Care Public Speaking Teacher Name Role Phone Marcello Byrd MD Primary Care Provider [phone] Encounter Details Date Type Department Care Team (Late st Contact Info) Description 02/07/2024 Abstract [facility] OB [address] [place] [address] Arcadio Miranda [facility] [address] [place], [facility]11 Social History Tobacco Use Types Packs/Day Years Used Date Smoking Tobacco: Never Smokeless Tobacco: Never Alcohol Use Standard Drinks/Week Comments Not Currently 0 (1 standard drink = 0.6 oz pur e alcohol) Comments No Sex and Gender Information Value Date Recorded Sex Assigned at Female 04/20/2023 5:24 PM EDT Legal Sex Female 11:47 PM EDT Gender Identity Female 04/20/2023 5:24 PM EDT Sexual Orientation Straight 04/20/2023 5: 24 PM EDT documented as of this encounter Plan of Treatment Upcoming Encounters Date Type Department Care Team (Late st Contact Info) Description 01/31/2025 2:00 PM EDT Ancillary Procedure [facility] [address] [place] [phone] 01/31/2025 2:30 PM EDT Initial [facility] [address] [place] [address] 09/03/2025 9:00 AM EST Office Visit [facility] [address] [facility] [place] [address] Arcadio Miranda, [address] [facility] [place] [address] documented as of this encounter Visit Diagnoses Not on filedocumented in this encounter Care Teams Public Speaking Teacher Relationship Specialty Start Date End Date Marcello Byrd MD [address] [facility] [place] [address] PCP - General Family Medicine 05/20/23 documented as of this encounter
--- OUTSIDE RECORDS SUMMARY | 2025-01-27 16:09 | XMS_ITS | Encounter Summary ---
Author Organization [facility] Address [address] [facility] [place] [address] Care Team Providers Care Community Theater Actor Name Role Phone Marcello Byrd MD Primary Care Provider [phone] Encounter Details Date Type Department Care Team (Late st Contact Info) Description 09/26/2023 Clinisync Result Encounter [facility] External Department Unsolicited Dionisio Miranda DO [address] [place], [place] [id number] Social History Tobacco Use Types Packs/Day Years [...] 01/31/2025 2:00 PM EDT Ancillary Procedure [facility] OB [address] [place] [address] 01/31/2025 2:30 PM EDT Initial [facility] [place] [address] 09/03/2025 9:00 AM EST Office Visit [facility] [place] [address] Dionisio Miranda DO [address] [place] [address] [place] [address] [phone] (work) documented as of this encounter Procedures Procedure Name Priority Date/Time Associated Diagnosis Comments US OB PLACENTA 09/26/2023 7:10 AM EST documented in this encounter Results * US OB PLACENTA (09/26/2023 7:10 AM EST) Anatomical Region Laterality Modality Other 09/26/2023 7:10 AM EST Narrative 09/26/2023 7:12 AM EST [address] [address] Ultrasound Report Signed Patient: VERÓNICA CANO MR#: [id number] : 1995 Acct:[id number] Age/Sex: 28 / F ADM Date: 09/24/23 Loc: US Attending Dr: Dionisio Miranda D.O. Ordering Physician: Dionisio Miranda D.O. Date of Service: 09/24/23 Procedure(s): US OB placenta Accession Number(s): [id number] cc: Dionisio Miranda D.O.; Marcello Byrd M.D. [address] [address] Patient Name: EVRÓNICA CANO MRN: [id number] date: 1995 Sex: F Assigned Patient Location: US Current Patient Location: Accession/Order Number: [id number] Exam Date: 09/24/2023 08:07 Report Date: 09/26/2023 07:10 At the request of: DIONISIO MIRANDA Procedure: US OB placenta EXAMINATION: US OB transvaginal, US OB placenta HISTORY: PACENTAL ABNORMALITY IN SECOND TRIMESTER 043.102 COMPARISON: 09/10/2023 FINDINGS: position: Cephalic presentation, longitudinal lie Amniotic fluid: Subjectively normal Placenta: Anterior, placental edge 6.6 cm from the internal os. Grade 1. Again demonstrated is an area of hypoechogenicity along the edge of the placenta measuring 4.6 x 2.6 x 2.8 cm. Additional areas of hypoechogenicity within the placenta Heart rate: 151 beats minute Cervix: Closed, 4.4 cm US/US OB placenta IMPRESSION: Stable 4.6 cm avascular area of hypoechogenicity along the edge of the placenta, placental hernandez versus an area of hemorrhage Electronically authenticated by: JESSENIA LOPEZ Date: 09/26/2023 07:10 Dictated By: Jessenia Lopez M.D. Signed By: 09/26/23711 DD/ 9 TD/TT: Piped Pocket Machine Operator: Procedure Note Radiology, Radiologist, MD - 10/19/2023 [place] [address] Ultrasound Report Signed Patient: VERÓNICA CANO GMR#: [id number] : 1995Acct:[id number] Age/Sex: 28 / FADM Date: 09/24/23 Loc: US Attending Dr: Dionisio Miranda D.O. Ordering Physician: Dionisio Miranda D.O. Date of Service: 09/24/23 Procedure(s): US OB placenta Accession Number(s): [id number] cc: Dionisio Miranda D.O.; Marcello Byrd M.D. The [place] [id number] Patient Name: VERÓNICA CANO MRN: [id number] date: 1995 Sex: F Assigned Patient Location: US Current Patient Location: Accession/Order Number: [id number] Exam Date: 09/24/2023 08:07 Report Date: 09/26/2023 07:10 At the request of: DIONISIO MIRANDA Procedure: US OB placenta EXAMINATION: US OB transvaginal, US OB placenta HISTORY: PACENTAL ABNORMALITY IN SECOND TRIMESTER 043.102 COMPARISON: 09/10/2023 FINDINGS: position: Cephalic presentation, longitudinal lie Amniotic fluid: Subjectively normal Placenta: Anterior, placental edge 6.6 cm from the internal os. Grade 1.Again demonstrated is an area of hypoechogenicity along the edge of the placenta measuring 4.6 x 2.6 x 2.8 cm. Additional areas of hypoechogenicity withinthe placenta Heart rate: 151 beats minute Cervix: Closed, 4.4 cm US/US OB placenta IMPRESSION: Stable 4.6 cm avascular area of hypoechogenicity along the edge of the placenta, placental hernandez versus an area of hemorrhage Electronically authenticated by: JESSENIA LOPEZ Date: 09/26/2023 07:10 Dictated By: Jessenia Lopez M.D. Signed By:09/26/23711 DD/ 9 TD/TT: Piped Pocket Machine Operator: us Dionisio Ruth DO [facility] Final Result documented in this encounter Visit Diagnoses Not on filedocumented in this encounter Care Teams Community Theater Actor Relationship Specialty Start Date End Date Marcello Byrd MD [address] [place] [address] PCP - General Family Medicine 05/20/23 documented as of this encounter
--- OUTSIDE RECORDS SUMMARY | 2025-01-27 16:09 | XMS_ITS | Encounter Summary ---
Author Organization [facility] Address [address] [facility] [place] [address] Care Team Providers Care C++ Quant Developer Name Role Phone Marcello Byrd MD Primary Care Provider [phone] Encounter Details Date Type Department Care Team (Latest Contact Info) Description 01/24/2025 Travel Social History Tobacco Use Types Packs/Day Years [...] 01/31/2025 2:00 PM EDT Ancillary Procedure [facility] [place] [phone] 01/31/2025 2:30 PM EDT Initial [facility] [place] [phone] 09/03/2025 9:00 AM EST Office Visit [facility] [place] [phone] Arcadio Miranda DO [facility] [address] [place], [place] [phone] documented as of this encounter Visit Diagnoses Not on filedocumented in this encounter Care Teams C++ Quant Developer Relationship Specialty Start Date End Date Marcello Byrd MD [address] [place] [address] PCP - General Family Medicine 05/20/23 documented as of this encounter
--- OUTSIDE RECORDS SUMMARY | 2025-01-27 16:09 | XMS_ITS | Encounter Summary ---
Author Organization [facility] Address [address] [facility] [place] [address] Care Team Providers Care Platen Press Feeder Name Role Phone Marcello Byrd MD Primary Care Provider [phone] Encounter Details Date Type Department Care Team (Late st Contact Info) Description 12/21/2023 Abstract [facility] OB [address] [place] [address] Arcadio Miranda DO [address] [place], [facility]11 Social History Tobacco Use Types Packs/Day [...] PM EDT Ancillary Procedure [facility] [place] [phone] 01/31/2025 2:30 PM EDT [place] [address] 09/03/2025 9:00 AM EST [place] [address] Arcadio Miranda, [address] [place] [address] documented as of this encounter Visit Diagnoses Not on filedocumented in this encounter Care Teams Platen Press Feeder Relationship Specialty Start Date End Date Marcello Byrd MD [address] [facility] [place] [address] [phone] PCP - General Family Medicine 05/20/23 documented as of this encounter
--- OUTSIDE RECORDS SUMMARY | 2025-01-27 16:09 | XMS_ITS | Encounter Summary ---
Author Organization [facility] Address [address] [facility] [place] [address] Care Team Providers Care Middle School Counselor Name Role Phone Marcello Byrd MD Primary Care Provider [phone] Encounter Details Date Type Department Care Team (Late st Contact Info) Description 09/10/2023 Clinisync Result Encounter [facility] External Department Unsolicited Dionisio Miranda DO [address] [place], [place] [address] Social History Tobacco Use Types Packs/Day Years [...] 01/31/2025 2:00 PM EDT Ancillary Procedure [facility] OB [address] [place] [address] 01/31/2025 2:30 PM EDT Initial [facility] [place] [address] 09/03/2025 9:00 AM EST Office Visit [facility] [place] [address] Dionisio Miranda DO [address] [place] [address] [place] [address] [phone] (work) documented as of this encounter Procedures Procedure Name Priority Date/Time Associated Diagnosis Comments US OB TRANSVAGINAL 09/10/2023 10 :35 AM EST documented in this encounter Results * US OB TRANSVAGINAL (09/10/2023 10:35 AM EST) Anatomical Region Laterality Modality Other 09/10/2023 10:3 5 AM EST Narrative 09/10/2023 10:38 AM EST [address] [address] Ultrasound Report Signed Patient: VERÓNICA CANO MR#: [id number] : 1995 Acct:[id number] Age/Sex: 28 / F ADM Date: 09/10/23 Loc: LAB Attending Dr: Yoli Tan Ordering Physician: Dionisio Miranda D.O. Date of Service: 09/10/23 Procedure(s): US OB transvaginal Accession Number(s): [id number] cc: Dionisio Miranda D.O.; Marcello Byrd M.D. [address] [address] Patient Name: VERÓNICA CANO MRN: [id number] date: 1995 Sex: F Assigned Patient Location: LAB Current Patient Location: LAB Accession/Order Number: [id number] Exam Date: 09/10/2023 09:25 Report Date: 09/10/2023 10:35 At the request of: DIONISIO MIRANDA Procedure: US OB transvaginal EXAMINATION: US OB placenta, US OB transvaginal HISTORY: low lying placenta O44.40 COMPARISON: Ultrasound OB anatomy 08/10/2023 FINDINGS: PLACENTA: Anterior with lower margin 4.0 cm from internal os. Several heterogeneous hypoechoic areas suspected represent placental lakes; largest is 4.7 x 2.6 x 2.2 cm. CERVIX LENGTH: 5.0 cm, closed. HEART RATE: 134 bpm OTHER: None. US/US OB transvaginal IMPRESSION: 1. Anterior placenta without previa. 2. Multiple heterogeneous hypoechoic areas within the placenta favoring venous lakes. Electronically authenticated by: GABRIELE HOLCOMB Date: 09/10/2023 10:35 Dictated By: Gabriele Holcomb M.D. Signed By: 09/10/23 1038 DD/ 1035 TD/TT: Cone Sewer: Procedure Note Radiology, Radiologist, MD - 10/19/2023 [place] [address] Ultrasound Report Signed Patient: VERNÓICA CANO GMR#: [id number] : 1995Acct:[id number] Age/Sex: 28 FADM Date: 09/10/23 Loc: LAB Attending Dr: Yoli Tan Ordering Physician: Dionisio Miranda D.O. Date of Service: 09/10/23 Procedure(s): US OB transvaginal Accession Number(s): [id number] cc: Dionisio Miranda D.O.; Marcello Byrd M.D. The [place] [address] Patient Name: VERÓNICA CANO MRN: [id number] date: 1995 Sex: F Assigned Patient Location: LAB Current Patient Location: LAB Accession/Order Number: [id number] Exam Date: 09/10/2023 09:25 Report Date: 09/10/2023 10:35 At the request of: DIONISIO MIRANDA Procedure: US OB transvaginal EXAMINATION: US OB placenta, US OB transvaginal HISTORY: low lying placenta O44.40 COMPARISON: Ultrasound OB anatomy 08/10/2023 FINDINGS: PLACENTA: Anterior with lower margin 4.0 cm from internal os. Several heterogeneous hypoechoic areas suspected represent placental lakes;largest is 4.7 x 2.6 x 2.2 cm. CERVIX LENGTH: 5.0 cm, closed. HEART RATE: 134 bpm OTHER: None. US/US OB transvaginal IMPRESSION: 1. Anterior placenta without previa. 2. Multiple heterogeneous hypoechoic areas within the placenta favoringvenous lakes. Electronically authenticated by: GABRIELE HOLCOMB Date: 09/10/2023 10:35 Dictated By: Gabriele Holcomb M.D. Signed By:09/10/23 1038 DD/ 1035 TD/TT: Cone Sewer: us Dionisio Ruth DO [facility] Final Result documented in this encounter Visit Diagnoses Not on filedocumented in this encounter Care Teams Middle School Counselor Relationship Specialty Start Date End Date Marcello Byrd MD [address] [place] [address] PCP - General Family Medicine 05/20/23 documented as of this encounter
--- OUTSIDE RECORDS SUMMARY | 2025-01-27 16:09 | XMS_ITS | Encounter Summary ---
Author Organization [facility] Address [address] [facility] [place] [address] Care Team Providers Care Data Science And Iot Manager Name Role Phone Marcello Byrd MD Primary Care Provider [phone] Encounter Details Date Type Department Care Team (Late st Contact Info) Description 08/10/2023 Clinisync Result Encounter [facility] External Department Unsolicited Dionisio Miranda, DO [address], [id number] Social History Tobacco Use Types Packs/Day Years [...] Procedure [facility] OB [address] [place] [address] 01/31/2025 2:30 PM EDT Initial [facility] [address] [place] [address] 09/03/2025 9:00 AM EST Office Visit [facility] OB [address] [place] [address] [place] [address] Dionisio Miranda DO [address] [place] [address] [place] [address] documented as of this encounter Procedures Procedure Name Priority Date/Time Associated Diagnosis Comments US OB ANATOMY 08/10/2023 9:17 PM EST documented in this encounter Results * US OB ANATOMY (08/10/2023 9:17 PM EST) Anatomical Region Laterality Modality Other 08/10/2023 9:17 PM EST Narrative 08/10/2023 9:20 PM EST [address] [address] Ultrasound Report Signed Patient: VERÓNICA CANO MR#: [id number] : 1995 Acct:[id number] Age/Sex: 28 / F ADM Date: 08/10/23 Loc: US Attending Dr: Dionisio Miranda D.O. Ordering Physician: Dionisio Miranda D.O. Date of Service: 08/10/23 Procedure(s): US OB anatomy Accession Number(s): [id number] cc: Dionisio Miranda D.O.; Marcello Byrd M.D. [address] [address] Patient Name: VERÓNICA CANO MRN: [id number] date: 1995 Sex: F Assigned Patient Location: US Current Patient Location: US Accession/Order Number: [id number] Exam Date: 08/10/2023 09:04 Report Date: 08/10/2023 21:17 At the request of: DIONISIO MIRANDA Procedure: US OB anatomy EXAMINATION: US OB anatomy, US OB transvaginal [...] MIGUE by current US: 12/29/2023 US/US OB anatomy IMPRESSION: 1. Single live intrauterine with growth detailed above. 2. Multiple hypodensities within the placenta suspected to represent venous lakes, and increased vascularity between the placenta and uterus; nonspecific. Electronically authenticated by: GABRIELE HOLCOMB Date: 08/10/2023 21:17 Dictated By: Gabriele Holcomb M.D. Signed By: 08/10/232119 DD/ 16 TD/TT: Customer Experience Leader: Procedure Note Radiology, Radiologist, - 08/10/[address] [address] Ultrasound Report Signed Patient: VERÓNICA CANO GMR#: [id number] : 1995Acct:[id number] Age/Sex: 28 / FADM Date: 12/27/23 Loc: US Attending Dr: Dionisio Miranda D.O. Ordering Physician: Dionisio Miranda D.O. Date of Service: 08/10/23 Procedure(s): US OB anatomy Accession Number(s): [id number] cc: Dionisio Miranda D.O.; Marcello Byrd M.D. [place] [address] Patient Name: VERÓNICA CANO MRN: [facility]:[id number] date: 1995 Sex: F Assigned Patient Location: US Current Patient Location: US Accession/Order Number: [id number] Exam Date: 08/10/2023 09:04 Report Date: 08/10/2023 21:17 At the request of: DIONISIO MIRANDA Procedure: US OB anatomy EXAMINATION: US OB anatomy, US OB transvaginal [...] MIGUE by current US: 12/29/2023 US/US OB anatomy IMPRESSION: 1. Single live intrauterine with growth detailed above. 2. Multiple hypodensities within the placenta suspected to representvenous lakes, and increased vascularity between the placenta and uterus;nonspecific. Electronically authenticated by: GABRIELE HOLCOMB Date: 08/10/2023 21:17 Dictated By: Gabriele Holcomb M.D. Signed By:08/10/232119 DD/ 16 TD/TT: Customer Experience Leader: us Dionisio Ruth DO [facility] Final Result documented in this encounter Visit Diagnoses Not on filedocumented in this encounter Care Teams Data Science And Iot Manager Relationship Specialty Start Date End Date Marcello Byrd MD [address] [place] [address] PCP - General Family Medicine 05/20/23 documented as of this encounter
--- OUTSIDE RECORDS SUMMARY | 2025-01-27 16:09 | XMS_ITS | Encounter Summary ---
Author Organization [facility] Address [address] [facility] [place] [address] Care Team Providers Care Life Advisor Name Role Phone Marcello Byrd MD Primary Care Provider [phone] Encounter Details Date Type Department Care Team (Late st Contact Info) Description 09/26/2023 Clinisync Result Encounter [facility] External Department Unsolicited Dionisio Miranda DO [address], [place] [id number] Social History Tobacco Use Types Packs/Day Years [...] 01/31/2025 2:00 PM EDT Ancillary Procedure [facility] OB [address] [place] [address] 01/31/2025 2:30 PM EDT Initial [facility] [address] 09/03/2025 9:00 AM EST Office Visit [facility] [place] [phone] Dionisio Miranda DO [address] [place] [address] [place] [address] [phone] (work) documented as of this encounter Procedures Procedure Name Priority Date/Time Associated Diagnosis Comments US OB TRANSVAGINAL 09/26/2023 7: 10 AM EST documented in this encounter Results * US OB TRANSVAGINAL (09/26/2023 7:10 AM EST) Anatomical Region Laterality Modality Other 09/26/2023 7:10 AM EST Narrative 09/26/2023 7:12 AM EST [address] [address] Ultrasound Report Signed Patient: VERÓNICA CANO MR#: [id number] : 1995 Acct:[id number] Age/Sex: 28 / F ADM Date: 09/24/23 Loc: US Attending Dr: Dionisio Miranda D.O. Ordering Physician: Dionisio Miranda D.O. Date of Service: 09/24/23 Procedure(s): US OB transvaginal Accession Number(s): [id number] cc: Dionisio Miranda D.O.; Marcello Byrd M.D. [address] [address] Patient Name: VERÓNICA CANO MRN: [id number] date: 1995 Sex: F Assigned Patient Location: US Current Patient Location: Accession/Order Number: [id number] Exam Date: 09/24/2023 08:07 Report Date: 09/26/2023 07:10 At the request of: DIONISIO MIRANDA Procedure: US OB transvaginal EXAMINATION: US OB transvaginal, US OB placenta [...] minute Cervix: Closed, 4.4 cm US/US OB transvaginal IMPRESSION: Stable 4.6 cm avascular area of hypoechogenicity along the edge of the placenta, placental hernandez versus an area of hemorrhage Electronically authenticated by: JESSENIA LOPEZ Date: 09/26/2023 07:10 Dictated By: Jessenia Lopez M.D. Signed By: 09/26/23711 DD/ 9 TD/TT: Chair Springer: Procedure Note Radiology, Radiologist, MD - 10/19/2023 [place] [address] Ultrasound Report Signed Patient: VERÓNICA CANO GMR#: [id number] : 1995Acct:[id number] Age/Sex: 28 / FADM Date: 09/24/23 Loc: US Attending Dr: Dionisio Miranda D.O. Ordering Physician: Dionisio Miranda D.O. Date of Service: 09/24/23 Procedure(s): US OB transvaginal Accession Number(s): [id number] cc: Dionisio Miranda D.O.; Marcello Byrd M.D. The [place] [id number] Patient Name: VERÓNICA CANO MRN: [id number] date: 1995 Sex: F Assigned Patient Location: US Current Patient Location: Accession/Order Number: [id number] Exam Date: 09/24/2023 08:07 Report Date: 09/26/2023 07:10 At the request of: DIONISIO MIRANDA Procedure: US OB transvaginal EXAMINATION: US OB transvaginal, US OB placenta [...] minute Cervix: Closed, 4.4 cm US/US OB transvaginal IMPRESSION: Stable 4.6 cm avascular area of hypoechogenicity along the edge of the placenta, placental hernandez versus an area of hemorrhage Electronically authenticated by: JESSENIA LOPEZ Date: 09/26/2023 07:10 Dictated By: Jessenia Lopez M.D. Signed By:09/26/23711 DD/ 9 TD/TT: Chair Springer: us Dionisio Ruth DO [facility] Final Result documented in this encounter Visit Diagnoses Not on filedocumented in this encounter Care Teams Life Advisor Relationship Specialty Start Date End Date Marcello Byrd MD [address] [place] [address] PCP - General Family Medicine 05/20/23 documented as of this encounter
--- OUTSIDE RECORDS SUMMARY | 2025-01-27 16:09 | XMS_ITS | Encounter Summary ---
Author Organization [facility] Address [address] [facility] [place] [address] Care Team Providers Care Boiler House Mechanic Name Role Phone Marcello Byrd MD Primary Care Provider [phone] Encounter Details Date Type Department Care Team (Late st Contact Info) Description 09/11/2024 Orders Only [facility] OB [address] [place] [address] Kati Estrada LPN [facility] [address] [place] [id number] Social History Tobacco Use Types Packs/Day Years [...] 01/31/2025 2:00 PM EDT Ancillary Procedure [facility] OB [address] [place] [phone] 01/31/2025 2:30 PM EDT Initial [facility] OB [address] [place] [address] 09/03/2025 9:00 AM EST Office Visit [facility] OB [address] [place] [phone] Arcadio Miranda DO [address] [place] [address] Dr Donna Ferraro, [place] [phone] documented as of this encounter Procedures Procedure Name Priority Date/Time Associated Diagnosis Comments PAP SMEAR Routine 08/27/2024 12:00 AM EST documented in this encounter Results * Pap Smear (08/27/2024 12:00 AM EST) Swab Cervical swab / Unknown us Arcadio Miranda DO LAB CYTOLOGY ORDERABLES Final Re sult EXTERNAL LAB documented in this encounter Visit Diagnoses Not on filedocumented in this encounter Care Teams Boiler House Mechanic Relationship Specialty Start Date End Date Marcello Byrd MD [address] [facility] [place] [address] PCP - General Family Medicine 05/20/23 documented as of this encounter
--- OUTSIDE RECORDS SUMMARY | 2025-01-27 16:09 | XMS_ITS | Encounter Summary ---
Author Organization [facility] Address [address] [facility] [place] [address] Care Team Providers Care Tool Analyst Name Role Phone Marcello Byrd MD Primary Care Provider [phone] Encounter Details Date Type Department Care Team (Late st Contact Info) Description 09/10/2023 Clinisync Result Encounter [facility] External Department Unsolicited Dionisio Miranda DO [address], [place] [phone] Social History Tobacco Use Types Packs/Day Years [...] Procedure [facility] OB [address] [place] [address] 01/31/2025 2:30 PM EDT Initial [facility] [address] 09/03/2025 9:00 AM EST Office Visit [facility] [place] [address] Dionisio Miranda DO [address] [place] [address] [place] [address] [phone] (work) documented as of this encounter Procedures Procedure Name Priority Date/Time Associated Diagnosis Comments US OB PLACENTA 09/10/2023 10:35 AM EST GLUCOSE 1 HOUR Routine 09/10/2023 9:00 AM EST documented in this encounter Results * US OB PLACENTA (09/10/2023 10:35 AM EST) Anatomical Region Laterality Modality Other 09/10/2023 10:3 5 AM EST Narrative 09/10/2023 10:38 AM EST [place] [id number] Ultrasound Report Signed Patient: VERÓNICA CANO MR#: [id number] : 1995 Acct:[id number] Age/Sex: 28 / F ADM Date: 09/10/23 Loc: LAB Attending Dr: Yoli Tan Ordering Physician: Dionisio Miranda D.O. Date of Service: 09/10/23 Procedure(s): US OB placenta Accession Number(s): [id number] cc: Dionisio Miranda D.O.; Marcello Byrd M.D. [address] [address] Patient Name: VERÓNICA CANO MRN: [id number] date: 1995 Sex: F Assigned Patient Location: LAB Current Patient Location: LAB Accession/Order Number: [id number] Exam Date: 09/10/2023 09:25 Report Date: 09/10/2023 10:35 At the request of: DIONISIO MIRANDA Procedure: US OB placenta EXAMINATION: US OB placenta, US OB transvaginal HISTORY: low lying placenta O44.40 COMPARISON: Ultrasound OB anatomy 08/10/2023 FINDINGS: PLACENTA: Anterior with lower margin 4.0 cm from internal os. Several heterogeneous hypoechoic areas suspected represent placental lakes; largest is 4.7 x 2.6 x 2.2 cm. CERVIX LENGTH: 5.0 cm, closed. HEART RATE: 134 bpm OTHER: None. US/US OB placenta IMPRESSION: 1. Anterior placenta without previa. 2. Multiple heterogeneous hypoechoic areas within the placenta favoring venous lakes. Electronically authenticated by: GABRIELE HOLCOMB Date: 09/10/2023 10:35 Dictated By: Gabriele Holcomb M.D. Signed By: 09/10/23 1038 DD/ 1035 TD/TT: Transportation Job Titles: Procedure Note Radiology, Radiologist, MD - 09/10/2023 [place] [address] Ultrasound Report Signed Patient: VERÓNICA CANO GMR#: [id number] : 1995Acct:[id number] Age/Sex: 28 FADM Date: 09/10/23 Loc: LAB Attending Dr: Yoli Tan Ordering Physician: Dionisio Miranda D.O. Date of Service: 09/10/23 Procedure(s): US OB placenta Accession Number(s): [id number] cc: Dionisio Miranda D.O.; Marcello Byrd M.D. The [place] [id number] Patient Name: VERÓNICA CANO MRN: [id number] date: 1995 Sex: F Assigned Patient Location: LAB Current Patient Location: LAB Accession/Order Number: [id number] Exam Date: 09/10/2023 09:25 Report Date: 09/10/2023 10:35 At the request of: DIONISIO MIRANDA Procedure: US OB placenta EXAMINATION: US OB placenta, US OB transvaginal HISTORY: low lying placenta O44.40 COMPARISON: Ultrasound OB anatomy 08/10/2023 FINDINGS: PLACENTA: Anterior with lower margin 4.0 cm from internal os. Several heterogeneous hypoechoic areas suspected represent placental lakes;largest is 4.7 x 2.6 x 2.2 cm. CERVIX LENGTH: 5.0 cm, closed. HEART RATE: 134 bpm OTHER: None. US/US OB placenta IMPRESSION: 1. Anterior placenta without previa. 2. Multiple heterogeneous hypoechoic areas within the placenta favoringvenous lakes. Electronically authenticated by: GABRIELE HOLCOMB Date: 09/10/2023 10:35 Dictated By: Gabriele Holcomb M.D. Signed By:09/10/23 1038 DD/ 1035 TD/TT: Transportation Job Titles: us Dionisio Carrerao DO [facility] Final Result * GLUCOSE 1 HOUR (09/10/2023 9:00 AM EST) GLUCOSE 1 HOUR 122 mg/dL [facility] 09/10/2023 9:00 AM EST 09/10/2023 9:00 AM EST Narrative [facility] - 09/10/2023 4:27 PM EST us Yoli REYES LAB BLOOD ORDERABLES Final [facility] documented in this encounter Visit Diagnoses Not on filedocumented in this encounter Care Teams Tool Analyst Relationship Specialty Start Date End Date Marcello Byrd MD [address] [place] [address] PCP - General Family Medicine 05/20/23 documented as of this encounter
--- OUTSIDE RECORDS SUMMARY | 2025-01-27 16:09 | XMS_ITS | CCD ---
Author Organization [facility] Care Team Providers Care Cable Technician Name Role Phone RUTH, DR NICHOLE Consulting [...] Unavailable ZIEBER, DR ORQUIDEA Marie Consulting Unavailable BUFFALO, DR JESSENIA Cote Consulting Unavailable REQUEST, NONE LISTED Primary Care Unavaila ble RUTH, DR NICHOLE Attending Unavailable RUTH, DR NICHOLE Admitting Unavailable RUTH, DR NICHOLE Consulting Unavailable REQUEST, DR NONE LISTED Primary Care Unavaila ble RUTH, DR NICHOLE Attending Unavailable RUTH, DR NICHOLE Admitting Unavailable ZIEBER, DR ORQUIDEA Marie Consulting Unavailable RUSLAN, DR CHRISTIANSON Attending Unavailable RUSLAN, DR CHRISTIANSON Admitting Unavailable BENNIEY, DR ATWOOD Primary Care Unavailable RUSLAN, DR [...] Attending Unavailable RUTH, DR NICHOLE Admitting Unavailable BUFFALO, DR JESSENIA Cote Consulting Unavailable BENNIEY, DR ATWOOD Primary Care Unavailable RUTH, DR NICHOLE Attending Unavailable RUTH, DR NICHOLE Admitting Unavailable RUTH, DR NICHOLE Consulting Unavailable Carson VALLE, Marcello Altamirano Primary Care Provider [phone] DIONISIO MIRANDA Attending Unavailable RUTH, DIONISIO Attending Unavailable RUTH, DIONISIO Attending Unavailable RUTH, DIONISIO Attending Unavailable RUTH, DIONISIO Attending Unavailable RUTH, DIONISIO Attending Unavailable RUTH, DIONISIO Attending Unavailable RUTH, DIONISIO Attending Unavailable RUTH, DIONISIO Attending Unavailable RUTH, DIONISIO Attending Unavailable RUTH, DIONISIO Attending Unavailable Medications Current Medications Medication Drug Class(es) Dates Sig (Normalized) Sig (Original) drospirenone 4 mg oral tablet (3 sources) Progestin Start: 08-30-2024 End: 11-22-2024 take 1 tablet by mouth once daily Drospirenone (Slynd) 4 MG tablet Indications: Menorrhagia with irregular cycle Take 1 tablet by mouth Daily 84 tablet 3 08/30/2024 11/22/2024 Active Magnesium (2 sources) Start: 08-23-2023 End: 08-22-2024 take 2 tablets by mouth in the morning magnesium 200 MG tablet Indications: Cluster headache, not intractable, unspecified chronicity pattern Take 2 tablets (400 mg) by mouth in the morning. 60 tablet 11 08/23/2023 08/22/2024 Active norethindrone 0.35 mg oral tablet (4 sources) Start: 02-06-2024 End: 02-05-2025 take 1 tablet by mouth once daily norethindrone (Micronor) 0.35 MG tablet Indications: Uses control Take 1 tablet (0.35 mg) by mouth Daily 28 tablet 11 02/06/2024 02/05/2025 Active Completed/Discontinued Medications Medication Drug Class(es) Dates Sig (Normalized) Sig (Original) Vit w/Ma-Numgqdggh-ZS (PNV PO) (5 sources) End: 08-30-2024 take 1 tablet by mouth in the morning Vit w/Wj-Ywstoaxkz-AG (PNV PO) Take 1 tablet by mouth in the morning. 08/30/2024 Discontinued (Other) take 1 tablet by mouth in the mo rning Vit w/Dv-Oknebqpcp-DP (PNV PO) Take 1 tablet by mouth in the morning. Active take 1 tablet by mouth in the mo rning Vit w/Sz-Wfrqggkuj-VJ (PNV PO) Take 1 tablet by mouth in the morning. 0 Active Problems Active Problems Problem Classification Problem Date Documented Date Episodic/Chronic Immunizations and screening for infectious disease (5 sources) Encounter for screening for human papillomavirus (HPV); Translations: [Contact with and (suspected) exposure to infections with a predominantly sexual mode of transmission] Onset: 07-04-2021 Episodic Menstrual disorders (7 sources) Irregular menstruation, unspecified; Translations: [Menometrorrhagia] Onset: 07-02-2021 Chronic Other complications of (2 [...] Test Name Value Interpretation Reference Range Facility IGP,APTIMA HPV,AGE GDLNon AGE GDLN ACOG TESTING Note . [facility] Comment on above: TESTS RESULT FLAG UN ITS REF RANGE LAB Clinician Provided Cytology Information Source.............Cervix;Endocervix No. of containers..01 ThinPrep Vial Age Love GARRISON Daria... FLAG LEGEND: L-Low Normal,H-High Normal,LL-Alert Low,HH-Alert High <-Panic Low,>-Panic High,A-Abnormal,AA-Critical Abnormal Performed at: 01 =[facility] [address] [place] [address] Carrie Mcgovern MD, IGP, RFX APTIMA HPV ASCU Note . [facility] Comment on above: TESTS RESULT FLAG UN ITS REF RANGE LAB DIAGNOSIS: 02 NEGATIVE FOR INTRAEPITHELIAL LESION OR MALIGNANCY. Specimen adequacy: 02 Satisfactory for evaluation. Endocervical and/or squamous metaplastic cells (endocervical component) are present. Performed by: Jyoti Lee Drying Tunnel Operator ([facility]) . 02 Note: Note 02 The [...] <-Panic Low,>-Panic High,A-Abnormal,AA-Critical Abnormal Performed at: [address] [id number] Carrie Mcgovern MD, Performed at: = - [address] [id number] Disease Control Inspector: Carrie Mcgovern MD, Phone: [phone] Performed at: [address] [id number] Disease Control Inspector: Carrie Mcgovern MD, Phone: [phone] BRUSH-SPATULA CERVIX ENDOCERVIX [facility] Urinalysis macro (dipstick) panel (U)on 09-20-2023 Bilirubin, UA Negative Negative - 4(70) +++ mg/dL [facility] Blood, UA Negative Negative - 50 Zeus/mcL [facility] Clarity, UA Clear [facility] Color, UA Yellow [facility] Glucose, UA Negative Negative - 1999(110) ++++ mg/dL [facility] Interpretation and review of laboratory results Abnormal [facility] Ketones, UA Negative Negative - 160(16) ++++ mg/dL [facility] Leukocytes, UA Trace Negative - 500+++ Jing/mcL [facility] Nitrite, UA Negative Negative - Positive [facility] pH, UA 7.0 5 - 9 [facility] Protein, UA Negative Negative - 2000(20) ++++ mg/dL [facility] Spec Grav, UA 1.010 1 - 1.03 [facility] Urobilinogen, UA 0.2 0.2 - 12 mg/dL [facility] PAP ACOG PANEL 2: 23 to 31on 06-02-2022 . . Normal [facility] Comment on above: Performed By: #### G LU1HR #### [facility] [address] [address] [address] Joanna Chen Age Gdln ACOG Testing - Normal [facility] Comment on above: Performed By: #### G LU1HR #### [facility] [address] [address] [address] Joanna Chen DIAGNOSIS: Comment [facility] Comment on above: Result Comment: NEGA TIVE FOR INTRAEPITHELIAL LESION OR MALIGNANCY. Performed By: #### G LU1HR #### [facility] [address] [address] [address] Joanna Chen Methodology: Comment [facility] Comment on above: Result Comment: This liquid based ThinPrep(R) pap test was screened with the use of an image guided system. Performed By: #### G LU1HR #### [facility] [address] [address] [address] Joanna Chen Note: Comment [facility] Comment on above: Result Comment: The Pap smear is a screening test designed to aid in the detection of premalignant and malignant conditions of the uterine cervix. It is not a diagnostic procedure and should not be used as the sole means of detecting cervical cancer. Both false-positive and false-negative reports do occur. . Performed By: #### G LU1HR #### [facility] [address] [address] [address] Joanna Chen Performed by: Comment [facility] Comment on above: Result Comment: Serena Bassett, Drying Tunnel Operator (ASCP) Performed By: #### G LU1HR #### [facility] [address] [address] [address] Joanna Chen Reflex Criteria: Comment [facility] Comment on above: Result Comment: The HPV DNA reflex criteria were not met with this specimen result therefore, no HPV testing was performed. . Performed By: #### G LU1HR #### [facility] [address] [place] [address] Dr. Joanna Chen Specimen adequacy: Comment Normal [facility] Comment on above: Result Comment: Sati sfactory for evaluation. Endocervical and/or squamous metaplastic cells (endocervical component) are present. Performed By: #### G LU1HR #### [facility] [address] [place] [address] Dr. Joanna Chen CBC AUTO DIFFon 02-02-2022 BASO # 0.1 103/ul Normal 0.0-0.1 [facility] Comment on above: Performed By: #### H BSANS #### [facility] [address] [place] [address] Dr. Joanna Chen Basophils/100 WBC (Bld) 0.3 % Normal 0.2-2.0 [facility] Comment on above: Performed By: #### H BSANS #### [facility] [address] [place] [address] Dr. Joanna Chen EO # 0.1 103/ul Normal 0.0-0.7 [facility] Comment on above: Performed By: #### H BSANS #### [facility] [address] [place] [address] Dr. Joanna Chen Eosinophils/100 WBC (Bld) 0.4 % Critically low 0.9-7.0 [facility] Comment on above: Performed By: #### H BSANS #### [facility] [address] [place] [address] Dr. Joanna Chen Erythrocyte distribution width (RBC) [Ratio] 13.8 % Normal 11.0-15.0 [facility] Comment on above: Performed By: #### H BSANS #### [facility] [address] [place] [address] Dr. Joanna Chen Hematocrit (Bld) [Volume fraction] 31.7 % Critically low 36.0-48.0 [facility] Comment on above: Performed By: #### H BSANS #### [facility] [address] [address] [address] Joanna Chen Hemoglobin (Bld) [Mass/Vol] 10.0 g/dL Critically low 12.0-16.0 [facility] Comment on above: Performed By: #### H BSANS #### [facility] [address] [address] [address] Joanna Chen IG # 0.15 10e3/ul Critically high 0.00-0.03 [facility] Comment on above: Performed By: #### H BSANS #### [facility] [address] [address] [address] Joanna Chen IG % 0.9 % Critically high 0.0-0.5 [facility] Comment on above: Performed By: #### H BSANS #### [facility] [address] [place] [address] Dr. Joanna Chen LYMPH # 1.7 103/ul Normal 1.2-3.8 [facility] Comment on above: Performed By: #### H BSANS #### [facility] [address] [address] [address] Joanna Chen Lymphocytes/100 WBC (Bld) 10.5 % Critically low 20.5-60.0 [facility] Comment on above: Performed By: #### H BSANS #### [facility] [address] [address] [address] Joanna Chen MANUAL DIFF REQ NO Normal [facility] Comment on above: Performed By: #### H BSANS #### [facility] [address] [address] [address] Joanna Chen MCH (RBC) [Entitic mass] 29.2 pg Normal 26.7-34.0 [facility] Comment on above: Performed By: #### H BSANS #### [facility] [address] [address] [address] Joanna Chen MCHC (RBC) [Mass/Vol] 31.5 g/dL Normal 29.9-35.2 [facility] Comment on above: Performed By: #### H BSANS #### [facility] [address] [address] [address] Joanna Chen MCV (RBC) [Entitic vol] 92.4 fL Normal 81.0-99.0 [facility] Comment on above: Performed By: #### H BSANS #### [facility] [address] [address] [address] Joanna Chen MONO # 1.2 103/ul Critically high 0.3-0.8 [facility] Comment on above: Performed By: #### H BSANS #### [facility] [address] [address] [address] Joanna Chen Monocytes/100 WBC (Bld) 7.2 % Normal 1.7-12.0 [facility] Comment on above: Performed By: #### H BSANS #### [facility] [address] [address] [address] Joanna Chen NEUT # 13.0 103/ul Critically high 1.4-6.5 [facility] Comment on above: Performed By: #### H BSANS #### [facility] [address] [address] [address] Joanna Chen Neutrophils/100 WBC (Bld) 80.7 % Critically high 43.0-75.0 [facility] Comment on above: Performed By: #### H BSANS #### [facility] [address] [place] [address] Dr. Joanna Chen Platelet mean volume (Bld) [Entitic vol] 10.0 fL Normal 9.5-13.[address] [facility] Comment on above: Performed By: #### H BSANS #### [facility] [address] [address] [address] Joanna Chen PLT 181 103/ul Normal 150-[address] [facility] Comment on above: Performed By: #### H BSANS #### [facility] [address] [address] [address] Joanna Chen RBC 3.43 106/ul Critically low 4.20-5.40 [facility] Comment on above: Performed By: #### H BSANS #### [facility] [address] [place] [address] Dr. Joanna Chen WBC 16.1 103/ul Critically high 4.0-11.0 [facility] Comment on above: Performed By: #### H BSANS #### [facility] [address] [place] [address] Dr. Joanna Chen CBC AUTO DIFFon 02-01-2022 BASO # 0.0 103/ul Normal 0.0-0.1 [facility] Comment on above: Performed By: #### G LU1HR #### [facility] [address] [place] [address] Dr. Joanna Chen Basophils/100 WBC (Bld) 0.2 % Normal 0.2-2.0 [facility] Comment on above: Performed By: #### G LU1HR #### [facility] [address] [place] [address] Dr. Joanna Chen EO # 0.0 103/ul Normal 0.0-0.7 [facility] Comment on above: Performed By: #### G LU1HR #### [facility] [address] [place] [address] Dr. Joanna Chen Eosinophils/100 WBC (Bld) 0.2 % Critically low 0.9-7.0 [facility] Comment on above: Performed By: #### G LU1HR #### [facility] [address] [place] [address] Dr. Joanna Chen Erythrocyte distribution width (RBC) [Ratio] 13.8 % Normal 11.0-15.0 [facility] Comment on above: Performed By: #### G LU1HR #### [facility] [address] [place] [address] Dr. Joanna Chen Hematocrit (Bld) [Volume fraction] 36.2 % Normal 36.0-48.0 [facility] Comment on above: Performed By: #### G LU1HR #### [facility] [address] [place] [address] Dr. Joanna Chen Hemoglobin (Bld) [Mass/Vol] 11.8 g/dL Critically low 12.0-16.0 [facility] Comment on above: Performed By: #### G LU1HR #### [facility] [address] [place] [address] Dr. Joanna Chen IG # 0.14 10e3/ul Critically high 0.00-0.03 [facility] Comment on above: Performed By: #### G LU1HR #### [facility] [address] [place] [address] Dr. Joanna Chen IG % 1.0 % Critically high 0.0-0.5 [facility] Comment on above: Performed By: #### G LU1HR #### [facility] [address] [place] [address] Dr. Joanna Chen LYMPH # 2.0 103/ul Normal 1.2-3.8 [facility] Comment on above: Performed By: #### G LU1HR #### [facility] [address] [place] [address] Dr. Joanna Chen Lymphocytes/100 WBC (Bld) 14.5 % Critically low 20.5-60.0 [facility] Comment on above: Performed By: #### G LU1HR #### [facility] [address] [place] [address] Dr. Joanna Chen MANUAL DIFF REQ NO Normal [facility] Comment on above: Performed By: #### G LU1HR #### [facility] [address] [place] [address] Dr. Joanna Chen MCH (RBC) [Entitic mass] 29.2 pg Normal 26.7-34.0 [facility] Comment on above: Performed By: #### G LU1HR #### [facility] [address] [place] [address] Dr. Joanna Chen MCHC (RBC) [Mass/Vol] 32.6 g/dL Normal 29.9-35.2 [facility] Comment on above: Performed By: #### G LU1HR #### [facility] [address] [place] [address] Dr. Joanna Chen MCV (RBC) [Entitic vol] 89.6 fL Normal 81.0-99.[address] [facility] Comment on above: Performed By: #### G LU1HR #### [facility] [address] [place] [address] Dr. Joanna Chen MONO # 1.0 103/ul Critically high 0.3-0.8 [facility] Comment on above: Performed By: #### G LU1HR #### [facility] [address] [place] [address] Dr. Joanna Chen Monocytes/100 WBC (Bld) 7.2 % Normal 1.7-12.[address] [facility] Comment on above: Performed By: #### G LU1HR #### [facility] [address] [place] [address] Dr. Joanna Chen NEUT # 10.6 103/ul Critically high 1.4-6.5 [facility] Comment on above: Performed By: #### G LU1HR #### [facility] [address] [place] [address] Dr. Joanna Chen Neutrophils/100 WBC (Bld) 76.9 % Critically high 43.0-75.[address] [facility] Comment on above: Performed By: #### G LU1HR #### [facility] [address] [place] [address] Dr. Joanna Chen Platelet mean volume (Bld) [Entitic vol] 9.7 fL Normal 9.5-13.[address] [facility] Comment on above: Performed By: #### G LU1HR #### [facility] [address] [place] [address] Dr. Joanna Chen PLT 203 103/ul Normal 150-[address] [facility] Comment on above: Performed By: #### G LU1HR #### [facility] [address] [place] [address] Dr. Joanna Chen RBC 4.04 106/ul Critically low 4.20-5.40 [facility] Comment on above: Performed By: #### G LU1HR #### [facility] [address] [place] [address] Dr. Joanna Chen WBC 13.8 103/ul Critically high 4.0-11.0 [facility] Comment on above: Performed By: #### G LU1HR #### [facility] [address] [place] [address] Dr. Joanna Chen Covid-19 PCR ([facility])on 01-14 SARS-CoV-2 (COVID-19) RNA MANINDER+probe Ql (Unsp spec) Not detected Normal NOT DETECTED [facility] Comment on above: Result Comment: When [...] for this test is supported by the [place] of [employer] and Human Service's declaration that [...] used). Performed By: #### G LU1HR #### [facility] [address] [place] [address] Dr. Joanna Chen DRUG SCREEN RAPID (URINE)on 02-01-2022 AMP Negative Normal NEGATIVE [facility] Comment on above: Performed By: #### H BSANS #### [facility] [address] [place] [address] Dr. Joanna Chen BAR Negative Normal NEGATIVE [facility] Comment on above: Performed By: #### H BSANS #### [facility] [address] [place] [address] Dr. Joanna Chen BUP Negative Normal NEGATIVE [facility] Comment on above: Performed By: #### H BSANS #### [facility] [address] [place] [address] Dr. Joanna Chen BZO Negative Normal NEGATIVE [facility] Comment on above: Performed By: #### H BSANS #### [facility] [address] [place] [address] Dr. Joanna Chen HALLE Negative Normal NEGATIVE [facility] Comment on above: Performed By: #### H BSANS #### [facility] [address] [place] [address] Dr. Joanna Chen CUT-OFFS SEE BELOW Normal [facility] Comment on above: Result Comment: AMP [...] ng/mL Performed By: #### H BSANS #### [facility] [address] [place] [address] Dr. Joanna Chen DRUG CUT HEADER DRUG CLASS TEST SYST EM CUT-OFF CONCENTRATIONS ARE FOLLOWS: Normal [facility] Comment on above: Performed By: #### H BSANS #### [facility] [address] [place] [address] Dr. Joanna Chen mAMP Negative Normal NEGATIVE [facility] Comment on above: Performed By: #### H BSANS #### [facility] [address] [place] [address] Dr. Joanna Chen MTD Negative Normal NEGATIVE [facility] Comment on above: Performed By: #### H BSANS #### [facility] [address] [place] [address] Dr. Joanna Chen OPI Negative Normal NEGATIVE [facility] Comment on above: Performed By: #### H BSANS #### [facility] [address] [place] [address] Dr. Joanna Chen OXY Negative Normal NEGATIVE [facility] Comment on above: Performed By: #### H BSANS #### [facility] [address] [place] [address] Dr. Joanna Chen PCP Negative Normal NEGATIVE [facility] Comment on above: Performed By: #### H BSANS #### [facility] [address] [place] [address] Dr. Joanna Chen PPX Negative Normal NEGATIVE [facility] Comment on above: Performed By: #### H BSANS #### [facility] [address] [place] [address] Dr. Joanna Chen TCA Negative Normal NEGATIVE [facility] Comment on above: Performed By: #### H BSANS #### [facility] [address] [place] [address] Dr. Joanna Chen THC Negative Normal NEGATIVE [facility] Comment on above: Performed By: #### H BSANS #### [facility] [address] [place] [address] Dr. Joanna Chen TYPE AND SCREENon 02-01-2022 TYPE AND SCREEN Negative Normal [facility] Comment on above: Performed By: #### C MP, PREGQNT #### [facility] [address] [place] [address] Dr. Joanna Chen UA (CLEAN/CATCH) CRATE MAKER/MICRO I F IND.on 02-01-2022 Bilirubin Ql (U) Negative Normal NEGATIVE [facility] Comment on above: Performed By: #### U ACSIND UMICRO #### [facility] [address] [place] [address] Dr. Joanna Chen Clarity (U) CLEAR Normal CLEAR [facility] Comment on above: Performed By: #### U ACSPRIETO UMICRO #### [facility] [address] [place] [address] Dr. Joanna Chen Color (U) LT. YELLOW Normal YELLOW [facility] Comment on above: Performed By: #### U ACSIND, UMICRO #### [facility] [address] [place] [address] Dr. Joanna Chen Glucose Ql (U) Negative Normal NEGATIVE [facility] Comment on above: Performed By: #### U ACSIND, UMICRO #### [facility] [address] [address] [address] Joanna Chen Hemoglobin Ql (U) Negative Normal NEGATIVE [facility] Comment on above: Performed By: #### U ACSIND, UMICRO #### [facility] [address] [address] [address] Joanna Chen Ketones Ql (U) Negative Normal NEGATIVE [facility] Comment on above: Performed By: #### U ACSIND, UMICRO #### [facility] [address] [address] [address] Joanna Chen LEUKOCYTES TRACE Abnormal NEGATIVE [facility] Comment on above: Performed By: #### U ACSIND, UMICRO #### [facility] [address] [place] [address] Dr. Joanna Chen Nitrite Ql (U) Negative Normal NEGATIVE [facility] Comment on above: Performed By: #### U ACSIND, UMICRO #### [facility] [address] [address] [address] Joanna Chen pH (U) 7.0 [pH] Normal 5-9 [facility] Comment on above: Performed By: #### U ACSIND, UMICRO #### [facility] [address] [place] [address] Dr. Joanna Chen SPEC GRAVITY 1.010 Normal 1.005-<=1.0 25 [facility] Comment on above: Performed By: #### U ACSIND, UMICRO #### [facility] [facility] [address] [address] [address] Joanna Chen UA PROTEIN Negative Normal NEGATIVE/ TRACE [facility] Comment on above: Performed By: #### U ACSIND, UMICRO #### [facility] [address] [address] [address] Joanna Chen UR MICRO IND INDICATED Normal [facility] Comment on above: Performed By: #### U ACSIND, UMICRO #### [facility] [address] [address] [address] Joanna Chen Urobilinogen Qn (U) 0.2 {Frank'U}/dL Normal 0.2 - 1.[address] [facility] Comment on above: Performed By: #### U ACSPRIETO, UMICRO #### [facility] [address] [place] [address] Dr. Joanna Chen URINE MICROSCOPIC ONLYon BACTERIA NONE SEEN Normal NONE SEEN [facility] Comment on above: Performed By: #### U ACSPRIETO, UMICRO #### [facility] [address] [place] [address] Dr. Joanna Chen Bacteria identified Cx Nom (U) NOT INDICATED Normal [facility] Comment on above: Performed By: #### U ACSPRIETO, UMICRO #### [facility] [address] [place] [address] Dr. Joanna Chen CAST NONE SEEN Normal NONE SEEN [facility] Comment on above: Performed By: #### U ACSPRIETO, UMICRO #### [facility] [address] [place] [address] Dr. Joanna Chen Crystals LM Nom (Urine sed) NONE SEEN Normal NONE SEEN [facility] Comment on above: Performed By: #### U ACSPRIETO, ICRO #### [facility] [address] [place] [address] Dr. Joanna Chen Epithelial cells LM Ql (Urine sed) FEW Abnormal NONE SEEN /RARE [facility] Comment on above: Performed By: #### U ACSPRIETO, UMICRO #### [facility] [address] [place] [address] Dr. Joanna Chen MUCOUS NONE SEEN Normal NONE SEEN [facility] Comment on above: Performed By: #### U ACSPRIETO, UMICRO #### [facility] [address] [place] [address] Dr. Joanna Chen RBC NONE SEEN Abnormal 0-[address] [facility] Comment on above: Performed By: #### U ACSPRIETO, UMICRO #### [facility] [address] [place] [address] Dr. Joanna Chen WBC 0-2 Abnormal NONE SEEN [facility] Comment on above: Performed By: #### U ACSIND, UMICRO #### [facility] [address] [address] [address] Joanna Chen PREG BIOPHY W NON STRESSo n 02-01-2022 [...] ORQUIDEA RING Date: 2022-02-01 12:[address] [facility] GROUP B STREP CULTUREon S. agalactiae Ag Ql (Unsp spec) Culture Observations: NEGATIVE FOR GROUP B STREPTOCOCCUS. Normal [facility] Comment on above: Performed By: #### C MP, PREGQNT #### [facility] [address] [place] [address] Dr. Joanna Chen PREG REEVAL ABNon 022 US PREG REEVAL [...] ORQUIDEA RING Date: 2021-12-21 16:[address] [facility] GLUCOSE - 1HRon 10-30-2021 Glucose [Mass/Vol] 82 mg/dL Normal 74-106 [facility] Comment on above: Performed By: #### G LU1HR #### [facility] [address] [place] [address] Dr. Joanna Chen HEMOGRAM AND PLATELon 2021 Hematocrit (Bld) [Volume fraction] 35.0 % Critically low 36.0-48.0 [facility] Comment on above: Performed By: #### H BSANS #### [facility] [address] [place] [address] Dr. Joanna Chen Hemoglobin (Bld) [Mass/Vol] 11.4 g/dL Critically low 12.0-16.0 [facility] Comment on above: Performed By: #### H BSANS #### [facility] [address] [place] [address] Dr. Joanna Chen MCH (RBC) [Entitic mass] 30.2 pg Normal 26.7-34.0 [facility] Comment on above: Performed By: #### H BSANS #### [facility] [address] [place] [address] Dr. Joanna Chen MCHC (RBC) [Mass/Vol] 32.6 g/dL Normal 29.9-35.[address] [facility] Comment on above: Performed By: #### H BSANS #### [facility] [address] [place] [address] Dr. Joanna Chen MCV (RBC) [Entitic vol] 92.6 fL Normal 81.0-99.[address] [facility] Comment on above: Performed By: #### H BSANS #### [facility] [address] [place] [address] Dr. Joanna Chen PLT 267 103/ul Normal 150-[address] [facility] Comment on above: Performed By: #### H BSANS #### [facility] [address] [place] [address] Dr. Joanna Chen RBC 3.78 106/ul Critically low 4.20-5.40 [facility] Comment on above: Performed By: #### H BSANS #### [facility] [address] [place] [address] Dr. Joanna Chen WBC 12.0 103/ul Critically high 4.0-11.0 [facility] Comment on above: Performed By: #### H BSANS #### [facility] [address] [address] [address] Joanna Chen CHLAMYDIA/GONOCOCCUS MANINDER (SW AB/URINE/PAPon 10-21-2021 Chlamydia trachomatis, MANINDER Negative Normal Negative [facility] Comment on above: Performed By: #### G LU1HR #### [facility] [address] [address] [address] Joanna Chen Neisseria gonorrhoeae, MANINDER Negative Normal Negative [facility] Comment on above: Performed By: #### G LU1HR #### [facility] [address] [address] [address] Joanna Chen VAGINITIS/VAGINOSIS DNA PROB Cheng 10-20-2021 Earnestine species Negative Normal Negative [facility] Comment on above: Performed By: #### H BSANS #### [facility] [address] [address] [address] Joanna Chen Gardnerella vaginalis Positive Abnormal Negative [facility] Comment on above: Performed By: #### H BSANS #### [facility] [address] [address] [address] Joanna Chen Trichomonas vaginalis Negative Normal Negative [facility] Comment on above: Performed By: #### H BSANS #### [facility] [address] [place] [address] Dr. Joanna Chen US PREG INCOMPLETE ANATOMYon 10-19-2021 US PREG INCOMPLETE ANATOMY EXAMINATION: US PREG INCOMPLETE ANATOMY HISTORY: screening COMPARISON: 10/01/2021 FINDINGS: presentation: Cephalic Heart rate: 141 bpm Normal anatomy: Right ventricular outflow track, left ventricular outflow tract Other: Single cardiac focus again noted IMPRESSION: Stable single cardiac focus, nonspecific Electronically authenticated by: JESSENIA LOPEZ Date: 2021-10-19 18:[address] [facility] US PREG ANATOMY SINGLEon US PREG [...] (44% by ultrasound, 13% by expected); FL/AC: [id number] FL/BPD: [id number] HC/AC: [id number] GESTATIONAL AGE: Age by EDC: 20 weeks, [...] ORQUIDEA RING Date: 2021-10-01 17:[address] [facility] Covid-19 PCR (CVDTBH)on 07-15 SARS-CoV-2 (COVID-19) RNA MANINDER+probe Ql (Unsp spec) Not detected Normal NOT DETECTED [facility] Comment on above: Result Comment: This test is not yet approved or cleared by the [place] FDA. When there are no FDA-approved or cleared tests available, and other criteria are met, FDA can make tests available under an emergency access mechanism called an Emergency Use Authorization (EUA). The EUA for this test is supported by the [place] of Health and Human Service's (HHS's) declaration [...] SARS-CoV-2. Performed By: #### G LU1HR #### [facility] [address] [place] [address] Dr. Joanna SIMON BOX TEST PT SEND OUTo n 07-27-2021 SENT TO REF LAB 07/27/2021 Normal [facility] Comment on above: Performed By: #### N BOX #### [facility] [address] [place] [address] Dr. Joanna Chen CBC AUTO DIFFon 07-15-2021 BASO # 0.0 103/ul Normal 0.0-0.1 [facility] Comment on above: Performed By: #### G LU1HR #### [facility] [address] [place] [address] Dr. Joanna Chen Basophils/100 WBC (Bld) 0.5 % Normal 0.2-2.0 [facility] Comment on above: Performed By: #### G LU1HR #### [facility] [address] [place] [address] Dr. Joanna Chen EO # 0.0 103/ul Normal 0.0-0.7 [facility] Comment on above: Performed By: #### G LU1HR #### [facility] [address] [place] [address] Dr. Joanna Chen Eosinophils/100 WBC (Bld) 0.5 % Critically low 0.9-7.0 [facility] Comment on above: Performed By: #### G LU1HR #### [facility] [address] [place] [address] Dr. Joanna Chen Erythrocyte distribution width (RBC) [Ratio] 13.3 % Normal 11.0-15.0 [facility] Comment on above: Performed By: #### G LU1HR #### [facility] [address] [place] [address] Dr. Joanna Chen Hematocrit (Bld) [Volume fraction] 39.1 % Normal 36.0-48.0 [facility] Comment on above: Performed By: #### G LU1HR #### [facility] [address] [place] [address] Dr. Joanna Chen Hemoglobin (Bld) [Mass/Vol] 13.0 g/dL Normal 12.0-16.0 [facility] Comment on above: Performed By: #### G LU1HR #### [facility] [address] [place] [address] Dr. Joanna Chen IG # 0.04 10e3/ul Critically high 0.00-0.03 [facility] Comment on above: Performed By: #### G LU1HR #### [facility] [address] [place] [address] Dr. Joanna Chen IG % 0.5 % Normal 0.0-0.5 [facility] Comment on above: Performed By: #### G LU1HR #### [facility] [address] [place] [address] Dr. Joanna Chen LYMPH # 1.8 103/ul Normal 1.2-3.8 [facility] Comment on above: Performed By: #### G LU1HR #### [facility] [address] [place] [address] Dr. Joanna Chen Lymphocytes/100 WBC (Bld) 20.9 % Normal 20.5-60.0 [facility] Comment on above: Performed By: #### G LU1HR #### [facility] [address] [place] [address] Dr. Joanna Chen MANUAL DIFF REQ NO Normal [facility] Comment on above: Performed By: #### G LU1HR #### [facility] [address] [place] [address] Dr. Joanna Chen MCH (RBC) [Entitic mass] 29.5 pg Normal 26.7-34.0 [facility] Comment on above: Performed By: #### G LU1HR #### [facility] [address] [place] [address] Dr. Joanna Chen MCHC (RBC) [Mass/Vol] 33.2 g/dL Normal 29.9-35.2 [facility] Comment on above: Performed By: #### G LU1HR #### [facility] [address] [place] [address] Dr. Joanna Chen MCV (RBC) [Entitic vol] 88.7 fL Normal 81.0-99.[address] [facility] Comment on above: Performed By: #### G LU1HR #### [facility] [address] [place] [address] Dr. Joanna Chen MONO # 0.6 103/ul Normal 0.3-0.8 [facility] Comment on above: Performed By: #### G LU1HR #### [facility] [address] [place] [address] Dr. Joanna Chen Monocytes/100 WBC (Bld) 7.2 % Normal 1.7-12.0 [facility] Comment on above: Performed By: #### G LU1HR #### [facility] [address] [place] [address] Dr. Joanna Chen NEUT # 6.1 103/ul Normal 1.4-6.5 [facility] Comment on above: Performed By: #### G LU1HR #### [facility] [address] [place] [address] Dr. Joanna Chen Neutrophils/100 WBC (Bld) 70.4 % Normal 43.0-75.[address] [facility] Comment on above: Performed By: #### G LU1HR #### [facility] [address] [place] [address] Dr. Joanna Chen Platelet mean volume (Bld) [Entitic vol] 9.3 fL Critically low 9.5-13.5 [facility] Comment on above: Performed By: #### G LU1HR #### [facility] [address] [place], [place] [id number] Dr. Joanna Chen PLT 241 103/ul Normal 150-[address] [facility] Comment on above: Performed By: #### G LU1HR #### [facility] [address] [address] [address] Joanna Chen RBC 4.41 106/ul Normal 4.20-5.40 [facility] Comment on above: Performed By: #### G LU1HR #### [facility] [address] [place] [address] Dr. Joanna Chen WBC 8.7 103/ul Normal 4.0-11.0 [facility] Comment on above: Performed By: #### G LU1HR #### [facility] [address] [place] [address] Dr. Joanna Chen PREG QUANT HCGon 07-15-2021 HCG QUANT 03899 mIU/mL Normal [facility] Comment on above: Performed By: #### C DARRYN, PREGQNT #### [facility] [address] [place] [address] Dr. Joanna Chen HCG RANGE SEE BELOW Normal [facility] Comment on above: Result Comment: 5-50 0-1 WEEK 40-300 1-2 WEEKS 100-1,000 2-3 WEEKS 500-6,000 3-4 WEEKS 5,000-200,000 1-2 MONTHS 10,000-100,000 2-3 MONTHS 3,000-50,000 2ND TRIMESTER 1,000-50,000 3RD TRIMESTER Performed By: #### C MP, PREGQNT #### [facility] [address] [place] [address] Dr. Joanna Chen PROF 14(COMP METB)on 021 Albumin [Mass/Vol] 3.6 g/dL Normal 3.5-5.0 [facility] Comment on above: Performed By: #### C MP, PREGQNT #### [facility] [address] [place] [address] Dr. Joanna Chen Albumin/Globulin [Mass ratio] 1.0 {ratio} Normal [facility] Comment on above: Performed By: #### C MP, PREGQNT #### [facility] [address] [address] [address] Joanna Chen ALP [Catalytic activity/Vol] 43 U/L Normal 38-126 [facility] Comment on above: Performed By: #### C MP, PREGQNT #### [facility] [address] [address] [address] Joanna Chen ALT [Catalytic activity/Vol] 21 U/L Normal 9-52 [facility] Comment on above: Performed By: #### C MP, PREGQNT #### [facility] [address] [address] [address] Joanna Chen Anion gap [Moles/Vol] 11.5 mmol/L Normal [facility] Comment on above: Performed By: #### C MP, PREGQNT #### [facility] [address] [place] [address] Dr. Joanna Chen AST [Catalytic activity/Vol] 18 U/L Normal 14-36 [facility] Comment on above: Performed By: #### C MP, PREGQNT #### [facility] [address] [place] [address] Dr. Joanna Chen Bilirubin [Mass/Vol] 0.4 mg/dL Normal 0.2-1.3 [facility] Comment on above: Performed By: #### C MP, PREGQNT #### [facility] [address] [place] [address] Dr. Joanna Chen Calcium [Mass/Vol] 9.3 mg/dL Normal 8.4-10.2 [facility] Comment on above: Performed By: #### C MP, PREGQNT #### [facility] [address] [place] [address] Dr. Joanna Chen Chloride [Moles/Vol] 102 mmol/L Normal 98-[address] [facility] Comment on above: Performed By: #### C MP, PREGQNT #### [facility] [address] [place] [address] Dr. Joanna Chen CO2 [Moles/Vol] 25.5 mmol/L Normal 22.0-30.0 [facility] Comment on above: Performed By: #### C MP, PREGQNT #### [facility] [address] [address] [address] Joanna Chen Creatinine [Mass/Vol] 0.54 mg/dL Normal 0.52-1.04 [facility] Comment on above: Performed By: #### C MP, PREGQNT #### [facility] [address] [address] [address] Joanna Chen EGFR-AF SAUDI ARABIAN >60 Normal >=60 [facility] Comment on above: Performed By: #### C MP, PREGQNT #### [facility] [address] [address] [address] Joanna Chen EGFR-NON AF SAUDI ARABIAN >60 Normal >=60 [facility] Comment on above: Performed By: #### C MP, PREGQNT #### [facility] [address] [address] [address] Joanna Chen Globulin (S) [Mass/Vol] 3.7 g/dL Normal [facility] Comment on above: Performed By: #### C MP, PREGQNT #### [facility] [address] [address] [address] Joanna Chen Glucose [Mass/Vol] 90 mg/dL Normal 74-106 [facility] Comment on above: Performed By: #### C MP, PREGQNT #### [facility] [address] [address] [address] Joanna Chen Potassium [Moles/Vol] 4.0 mmol/L Normal 3.4-5.0 [facility] Comment on above: Performed By: #### C MP, PREGQNT #### [facility] [address] [address] [address] Joanna Chen Protein [Mass/Vol] 7.3 g/dL Normal 6.1-8.2 [facility] Comment on above: Performed By: #### C MP, PREGQNT #### [facility] [address] [address] [address] Joanna Chen Sodium [Moles/Vol] 135 mmol/L Critically low 137-145 [facility] Comment on above: Performed By: #### C MP, PREGQNT #### [facility] [address] [address] [address] Joanna Chen Urea nitrogen [Mass/Vol] 8.0 mg/dL Normal 7.0-17.0 [facility] Comment on above: Performed By: #### C MP, PREGQNT #### [facility] [address] [address] [address] Joanna Chen Urea nitrogen/Creatinin e [Mass ratio] 14.8 mg/mg Normal [facility] Comment on above: Performed By: #### C MP, PREGQNT #### [facility] [address] [address] [address] Joanna Chen US PREG TVon 07-15-2021 [...] ORQUIDEA RING Date: 2021-07-15 10:[address] [facility] RPR QUANTon 07-06-2021 Rapid Plasma Reagin, Quant Non-Reactive Normal NonRea<1:[address] [facility] Comment on above: Performed By: #### G LU1HR #### [facility] [address] [address] [address] Joanna Chen RUBELLA AB IGGon 07-06-2021 Rubella Antibodies, IgG 2.68 index Normal Immune >0.99 [facility] Comment on above: Result Comment: Non- immune <0.90 Equivocal 0.90 - 0.99 Immune >0.99 Performed By: #### C MP, PREGQNT #### [facility] [address] [place] [address] Dr. Joanna Chen HEP B SURFACE ANTIGEN SCREEN on 07-05-2021 HBsAg Screen Negative Normal Negative [facility] Comment on above: Performed By: #### H BSANS #### [facility] [address] [place] [address] Dr. Joanna Chen HEPATITIS C VIRUS AB W/ REFL EX QUANTon 07-05-2021 HCV AB <0.1 Normal 0.0-0.9 [facility] Comment on above: Performed By: #### H BSANS #### [facility] [address] [place] [address] Dr. Joanna Chen Interpretation: Comment Normal [facility] Comment on above: Result Comment: Nega tive Not infected with HCV, unless recent infection is suspected or other evidence exists to indicate HCV infection. Performed By: #### H BSANS #### [facility] [address] [place] [address] Dr. Joanna Chen HIV 1 AND 2 WITH REFLEXon HIV Screen 4th Generation wRfx Non-Reactive Normal Non Reactive [facility] Comment on above: Performed By: #### H IV12 #### [facility] [address] [place] [address] Dr. Joanna Chen CBC AUTO DIFFon 07-04-2021 BASO # 0.1 103/ul Normal 0.0-0.1 [facility] Comment on above: Performed By: #### G LU1HR #### [facility] [address] [place] [address] Dr. Joanna Chen Basophils/100 WBC (Bld) 0.5 % Normal 0.2-2.0 [facility] Comment on above: Performed By: #### G LU1HR #### [facility] [address] [place] [address] Dr. Joanna Chen EO # 0.1 103/ul Normal 0.0-0.7 [facility] Comment on above: Performed By: #### G LU1HR #### [facility] [address] [place] [address] Dr. Joanna Chen Eosinophils/100 WBC (Bld) 0.5 % Critically low 0.9-7.0 [facility] Comment on above: Performed By: #### G LU1HR #### [facility] [address] [place] [address] Dr. Joanna Chen Erythrocyte distribution width (RBC) [Ratio] 13.0 % Normal 11.0-15.0 [facility] Comment on above: Performed By: #### G LU1HR #### [facility] [address] [place] [address] Dr. Joanna Chen Hematocrit (Bld) [Volume fraction] 39.3 % Normal 36.0-48.0 [facility] Comment on above: Performed By: #### G LU1HR #### [facility] [address] [place] [address] Dr. Joanna Chen Hemoglobin (Bld) [Mass/Vol] 12.8 g/dL Normal 12.0-16.0 [facility] Comment on above: Performed By: #### G LU1HR #### [facility] [address] [place] [address] Dr. Joanna Chen IG # 0.04 10e3/ul Critically high 0.00-0.03 [facility] Comment on above: Performed By: #### G LU1HR #### [facility] [address] [place] [address] Dr. Joanna Chen IG % 0.4 % Normal 0.0-0.5 [facility] Comment on above: Performed By: #### G LU1HR #### [facility] [address] [place] [address] Dr. Joanna Chen LYMPH # 2.6 103/ul Normal 1.2-3.8 [facility] Comment on above: Performed By: #### G LU1HR #### [facility] [address] [place] [address] Dr. Joanna Chen Lymphocytes/100 WBC (Bld) 28.1 % Normal 20.5-60.0 [facility] Comment on above: Performed By: #### G LU1HR #### [facility] [address] [address] [address] Joanna Chen MANUAL DIFF REQ NO Normal [facility] Comment on above: Performed By: #### G LU1HR #### [facility] [address] [place] [address] Dr. Joanna Chen MCH (RBC) [Entitic mass] 29.2 pg Normal 26.7-34.0 [facility] Comment on above: Performed By: #### G LU1HR #### [facility] [address] [place] [address] Dr. Joanna Chen MCHC (RBC) [Mass/Vol] 32.6 g/dL Normal 29.9-35.2 [facility] Comment on above: Performed By: #### G LU1HR #### [facility] [address] [place] [address] Dr. Joanna Chen MCV (RBC) [Entitic vol] 89.7 fL Normal 81.0-99.0 [facility] Comment on above: Performed By: #### G LU1HR #### [facility] [address] [place] [address] Dr. Joanna Chen MONO # 0.8 103/ul Normal 0.3-0.8 [facility] Comment on above: Performed By: #### G LU1HR #### [facility] [address] [place] [address] Dr. Joanna Chen Monocytes/100 WBC (Bld) 8.4 % Normal 1.7-12.0 [facility] Comment on above: Performed By: #### G LU1HR #### [facility] [address] [place] [address] Dr. Joanna Chen NEUT # 5.7 103/ul Normal 1.4-6.5 [facility] Comment on above: Performed By: #### G LU1HR #### [facility] [address] [place] [address] Dr. Joanna Chen Neutrophils/100 WBC (Bld) 62.1 % Normal 43.0-75.0 [facility] Comment on above: Performed By: #### G LU1HR #### [facility] [address] [address] [address] Joanna Chen Platelet mean volume (Bld) [Entitic vol] 9.6 fL Normal 9.5-13.5 [facility] Comment on above: Performed By: #### G LU1HR #### [facility] [address] [address] [address] Joanna Chen PLT 277 103/ul Normal 150-450 [facility] Comment on above: Performed By: #### G LU1HR #### [facility] [address] [place] [address] Dr[address] Joanna Chen RBC 4.38 106/ul Normal 4.20-5.40 [facility] Comment on above: Performed By: #### G LU1HR #### [facility] [address] [address] [address] Joanna Chen WBC 9.2 103/ul Normal 4.0-11.0 [facility] Comment on above: Performed By: #### G LU1HR #### [facility] [address] [address] [address] Joanna Chen CULTURE URINEon 07-04-2021 CULTURE URINE Culture Observations : NO GROWTH. Normal [facility] Comment on above: Performed By: #### U RCX #### [facility] [address] [address] [address] Joanna Chen GLYCOHEMOGLOBIN A1Con 2020 ADA RECOMMENDATION ADA THERAPEUTIC TARG ET 6.0 - 7.0 ACTION SUGGESTED > 7.0 Normal [facility] Comment on above: Performed By: #### A 1C #### [facility] [address] [address] [address] Joanna Chen Glucose [Mass/Vol] 103 mg/dL Normal [facility] Comment on above: Performed By: #### A 1C #### [facility] [address] [address] [address] Joanna Chen HbA1c (Bld) [Mass fraction] 5.2 % Normal <=6.0 [facility] Comment on above: Performed By: #### A 1C #### [facility] [address] [address] [address] Joanna Chen TYPE AND SCREENon 07-04-2021 TYPE AND SCREEN Negative Normal [facility] Comment on above: Performed By: #### C MP, PREGQNT #### [facility] [address] [place], [place] [address] Dr. Joanna Chen US PREG TVon 07-03-2021 [...] by: JESSENIA LOPEZ Date: 2021-07-03 07:[address] [facility] Coding Summary.on 03-31-2020 Coding Summary. CODING DATE: 020 FINAL [facility] STATUS: Home (Routine DC) PAYOR: [place] ADMIT DX: REASON FOR VISIT DX: Z01.812 [...] Michael CphT Date Saved: 03/31/2020 10:[address] [facility] Physician Orderon 03-19-2020 Physician Order [id number]#1.00CD:[address] [facility] Ambulatory Clinical Summaryo n 02-05-2020 Ambulatory Clinical Summary {[id number]}CD:[address] [facility] Coding Summary.on 02-04-2020 Coding Summary. CODING DATE: 020 FINAL [facility] STATUS: Home (Routine DC) PAYOR: [place] APC DESCRIPTION 5301 Level 1 Upper GI Procedures ADMIT DX: REASON FOR VISIT DX: R10.13 Epigastric pain FINAL DX: PRINCIPAL: K29.70 Gastritis, unspecified, without bleeding SECONDARY: PYMT PROC APC STAT DESCRIPTION DOCTOR NAME DATE 01573 5301 T Teddy HERNANDEZ MD 01/25/2020 phagogastroduodenoscopy, flexible, transoral; with biopsy, single or multiple 00927 Anesthesia for upper 01/25/2020 gastrointestinal endoscopic procedures, [...] Saved: 02/04/2020 12:[address] [facility] IntraOperative Documentson 0 01-29-2020 IntraOperative Documents [id number]:[address] [facility] Postoperative Documentson Postoperative Documents [id number]#[id number]:[address] [facility] Main OR Intraoperative Recor don 01-28-2020 Main OR Intraoperative Record IntraOp Document Type FT Summary Primary Physician: Teddy HERNANDEZ MD Finalized Date/Time: 01/28/20 09:11:27 Pt. Name: VERÓNICA RIVERS.O.B./Sex: 1995 Female Med Rec #: [id number] Physician: Teddy HERNANDEZ MD Financial #: [id number] Pt. Type: O Room/Bed: / Admit/Disch: 01/25/20 [...] Davis DO, Manuel HERNANDEZ MD, Teddy Pruett REFURBISH TECHNICIAN, [facility] Role Performed Anesthesiologist of Surgeon - Primary Scrub - Primary Record Time In 01/25/20 10:06:00 01/25/20 10:06:00 01/25/20 10:06:00 Time Out 01/25/20 10:18:00 01/25/20 10:18:00 01/25/20 10:18:00 Procedure EGD(.) EGD(.) EGD(.) Comments Last Modified By: Lorena Singleton RN, RN, Kimberly Y Barbee RN, Kimberly Y 01/25/20 10:18:20 01/25/20 10:18:20 01/25/20 10:18:20 Entry 4 Case Attendee Lorena Singleton RN Role Performed Home Visits Nurse - Primary Time In 01/25/20 10:06:00 Time [...] Participants Seble BALDERAS, Rod Altamirano, Areli EARLY, Lorena Banegas, Nura Davis DO, Manuel Time Out Complete 01/25/20 10:07:00 Outcomes Met? [...] and tissue Entry 1 Skin Integrity Intact, [place], Warm, and Skin Abnormality No Dry Outcomes [...] Outcomes Met? Yes Last Modified By: Lorena Signleton RN 01/25/20 09:52:14 Post-Care Text: The patient [...] Up PostOp Destination PACU Transported By Lorena Singletno RN Patient Status Stable Skin. Condition Other/See Comments Description SKIN CONDITION SAME PREOP Airway Maintenance Oxygen in Use? No Outcomes Met? Yes Last Modified By: Lorena Singleton RN 01/25/20 09:37:49 Post-Care Text: The patient is free from signs and symptoms of injury related to transfer/transport General Comments: REPORT GIVEN TO PACU NURSE. 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 Administration FT Pre-Care Text: Verifies allergies, administers [...] safely administered during the perioperative period For PrettyKyle please see scanned medication reconcilliation form for [...] 01/25/20 10:25 Zabrina Mota CST 01/28/20 09:11 Normal [facility] Consenton 01-25-2020 Consent [id number]#1.00CD:127 Normal [facility] Consent for Treatmenton 01-13 Consent for Treatment [id number]#1.00CD:127 Normal [facility] Discharge Instructionson Discharge Instructions [id number]#1.00CD:[address] [facility] History and Physicalon 01-24 History and Physical [id number]#1.00CD:[address] [facility] History and Physical Patient: VERÓNICA RIVERS Age: 24 years Sex: Female : 1995 Associated Diagnoses: None Author: Teddy HERNANDEZ MD Subjective no changes to H & P [facility] Comment on above: Result Comment: Elec tronically Signed By: Teddy HERNANDEZ MD\.br\Date and Time Signed: 01/25/20 09:47 EDT Inpatient Patient Summaryon 01-25-2020 Inpatient Patient Summary [place] [id number] [facility] Clinical Discharge Instructions PERSON INFORMATION Name: VERÓNICA RIVERS PHYSICIANS Admitting Physician: Teddy HERNANDEZ MD Attending Physician: Teddy HERNANDEZ MD PCP: Marcello Byrd MD Discharge Diagnosis: Antral gastritis Comment: PATIENT EDUCATION INFORMATION Instructions: Medication Leaflets: Follow up: With: Address: When: Teddy HERNANDEZ [address] [facility], [address], [place] [address] Business (1) Within 7 to 10 days MEDICATION LIST Medications to Continue with No Changes Other Medications ethinyl estradiol-norethindrone (Nortrel oral tablet) 1 Tablets By Mouth every day. Comment: [facility] IntraOperative Documentson 0 01-25-2020 IntraOperative Documents [id number]:[address] [facility] IntraOperative Documents [id number]#1.00CD:[address] [facility] Main OR PACU I Recordon 01-13 Main OR PACU I Record PACU Phase I Document Type FT Summary Primary Physician: Teddy HERNANDEZ MD Finalized Date/Time: 01/25/20 10:57:36 Pt. Name: VERÓNICA RIVERS Filipe Bee./Sex: 1995 Female Med Rec #: [id number] Physician: Teddy HERNANDEZ MD Financial #: [id number] Pt. Type: O Room/Bed: / Admit/Disch: 01/25/20 [...] By: Angela Meza RN 01/25/20 10:57 Normal [facility] Main OR Preoperative Recordo n 01-25-2020 Main OR Preoperative Record Holding Area Document Type FT Summary Primary Physician: Teddy HERNANDEZ MD Finalized Date/Time: 01/25/20 09:50:47 Pt. Name: TITAVERÓNIAC/Sex: 1995 Female Med Rec #: [id number] Physician: Teddy HERNANDEZ MD Financial #: [id number] Pt. Type: O Room/Bed: / Admit/Disch: 01/25/20 [...] By: Krystal Valdez RN 01/25/20 09:50 Normal [facility] Monitor Recordon 01-25-2020 Monitor Record [id number]#1.00CD:[address] [facility] Operative [...] in good condition. Nima Stevens Dictated: 01/25/2020 #[id number] Typed: 01/25/2020 #[id number] cc: Nima Higginbotham M.D. [facility] Comment on above: Result Comment: Elec tronically Signed By: SHAHZAD VALLE, Teddy Bhatia\Date and Time Signed: 01/25/20 12:21 EDT Patient Education - Texton 0 01-25-2020 Patient Education - Text Normal [facility] Progress Note-Physicianon Progress Note-Physician Patient: VERÓNICA [...] All Problems Chronic tonsillitis / SNOMED CT 641483262 / Confirmed Abdominal pain, epigastric / SNOMED CT 068534075 / Confirmed Abdominal pain, left upper quadrant / SNOMED CT 376832779 / Confirmed Loss of appetite / SNOMED CT 804692873 / Confirmed Migraine / SNOMED CT 61916979 / Confirmed Nausea in adult / SNOMED CT 0829326085 / Confirmed Patellofemoral syndrome / SNOMED CT 7512910984 / Confirmed Raynaud's syndrome / SNOMED CT 749751306 / Confirmed, Active Problems (8) Abdominal pain, epigastric Abdominal pain, left upper quadrant Chronic tonsillitis Loss of appetite Migraine Nausea in adult Patellofemoral syndrome Raynaud's syndrome Histories Past Medical History: No active or resolved past medical history items have been selected or recorded. Family History: No family history items have been selected or recorded. Procedure history: Arthroscopy of knee (784345390). Comments: 12/25/2019 14:10 EDT - Roxanne Morales [...] review: No qualifying data available . Plan [place] [employer] Anesthesiologists (ASA) physical status classification: Class II. Anesthetic Preoperative Plan Anesthesia: Monitored anesthesia care and general anesthesia if required.. Anesthetic plan, risks, benefits, and alternatives discussed with the patient and/or family. Pt. and/or family present and agree to proceed as planned.. Normal [facility] Comment on above: Result Comment: Elec tronically Signed By: Manuel Lyman Jr., DO\.jose de jesus\Date and Time Signed: 01/25/20 09:57 EDT Vital Signs Date Time Vital Sign Value Performing Clinician Bishop guan 08-30-2024 08:40-0500 Body mass index (BMI) [Ratio] 27.76 kg/m2 Dionisio Ruth DO Work Phone: [facility] 08-30-2024 08:40-0500 Body weight 78.02 kg Dionisio Ruth DO Work Phone: [facility] 08-30-2024 08:40-0500 Diastolic blood pressure 82 mm[Hg] Dionisio Ruth DO Work Phone: [facility] 08-30-2024 08:40-0500 Systolic blood pressure 120 mm[Hg] Dionisio Ruth DO Work Phone: [facility] 09-20-2023 09:51-0500 Body weight 89.41 kg Dionisio Ruth DO Work Phone: [facility] 09-20-2023 09:51-0500 Diastolic blood pressure 70 mm[Hg] Dionisio Ruth DO Work Phone: [facility] 09-20-2023 09:51-0500 Systolic blood pressure 114 mm[Hg] Dionisio Ruth DO Work Phone: [facility] Healthcare Encounters Encounter Date Encounter Type Care Provider Facility Start: 08-30-2024 End: 08-30-2024 Bamboo flowsheet Dionisio Ruth DO Work Phone: [facility] Start: 08-30-2024 End: 09-05-2024 Bamboo flowsheet Dionisio Ruth DO Work Phone: [facility] Start: 08-30-2024 End: 09-05-2024 Clinisync Result Encounter Dionisio Ruth DO Work Phone: [facility] External Department Unsolicited Start: 08-30-2024 End: 08-30-2024 ambulatory DIONISIO RUTH Not Available Start: 08-30-2024 End: 08-30-2024 Patient encounter procedure Dionisio Ruth DO Work Phone: [facility] Healthcare Start: 08-30-2024 End: 08-30-2024 Periodic preventive med est patient 18-39 yrs Dionisio Ruth DO Work Phone: [facility] Comment on above: Well woman exam with routine gynecological exam; Menorrhagia with irregular cycle Start: 02-06-2024 End: 02-06-2024 ambulatory DIONISIO RUTH [...] 09-20-2023 ambulatory DIONISIO RUTH Not Available Start: 05-26-2022 [...] Date Procedure Procedure Detail Performing Clinician Start: 08-30-2024 IGP,APTIMA HPV,AGE GDLN Dionisio Miranda DO Work Phone: Start: 09-20-2023 Urnls dip stick/tabl et rgnt [...] Treatment Date Care Activity Detail Author Start: 09-03-2025 End: 09-03-2025 Patient encounter procedure 09/03/2025 9:00 AM EST Office Visit [facility] [address] [place] [address] Dionisio Miranda DO [address] [place] [address] [facility] Start: 10-08-2023 End: 09-20-2024 US for US OB PLACENTA W US OB TRANSVAGINAL Imaging Routine Placental abnormality in second trimester Expected: 10/08/2023 (Approximate), Expires: 09/20/2024 [facility] Work Phone: Comment on above: Expected: 10/08/2023 (Approximate), Expires: 09/20/2024 Start: 10-04-2023 End: 10-04-2023 Patient encounter procedure 10/04/2023 2:10 PM EST Routine [facility] [address] [facility] [place] [id number] Dionisio Miranda, [address] [place] [address] [facility] Cytology Cervical or vaginal smear or scraping study Pap Smear Pathology and Cytology Routine Well woman exam with routine gynecological exam Ordered: 08/30/2024 [facility] Work Phone: Comment on above: Ordered: 08/30/2024 Payers Date Payer Category Payer Private Health Insurance [facility] [id number] 2022 Unknown [employer] [id number] 2022-Present [phone] [address] [address] [place] [address] [id number] 2022 Unknown [id number] 1995 Unknown [id number] 2.16.840.1.363992.3.579 .2.593 1995 Unknown [id number] 2.16.840.1.159333.3.579 .2.593 1995 Unknown [id number] 2.16.840.1.955289.3.579 .2.593 1995 Unknown [id number] 2.16.840.1.961735.3.579 .2.593 1995 Unknown [id number] 2.16.840.1.195370.3.579 .2.593 1997 Unknown [id number] 2.16.840.1.761374.3.579 .2.593 1997 Unknown [id number] 2.16.840.1.404855.3.579 .2.593 1997 Unknown [id number] 2.16.840.1.271573.3.579 .2.593 1997 Unknown [id number] 2.16.840.1.385982.3.579 .2.593 1997 Unknown [id number] 2.16.840.1.770054.3.579 .2.593 1997 Unknown [id number] 2.16.840.1.893418.3.579 .2.593 1997 Unknown [id number] 2.16.840.1.662130.3.579 .2.593 1997 Unknown [id number] 2.16.840.1.637715.3.579 .2.593 1997 Unknown [id number] 2.16.840.1.242019.3.579 .2.1259 1997 Unknown [id number] 2.16.840.1.398855.3.579 .2.1259 1997 Unknown [id number] 2.16.840.1.946759.3.579 .2.1259 1997 Unknown [id number] 2.16.840.1.708562.3.579 .2.1259 1997 Unknown [id number] 2.16.840.1.308214.3.579 .2.9 1995 Unknown [id number] 2.16.840.1.915019.3.579 .2.9 1995 Unknown [id number] 2.16.840.1.536430.3.579 .2.1258 1995 Unknown [id number] 2.16.840.1.825419.3.579 .2.1258 1995 Unknown [id number] 2.16.840.1.005421.3.579 .2.1258 1995 Unknown [id number] 2.16.840.1.343191.3.579 .2.1258 1997 Unknown [id number] 2.16.840.1.242657.3.579 .2.1259 1957 Self-pay 1959 Unknown [id number] 1959 Unknown [id number] 1959 Unknown [id number] Unknown [id number] 2.16.840.1.859450.3.579 .2.593 Social History Date Type Detail Facility Tobacco smoking stat [facility] Tobacco smoking consumption unknown [facility] Start: 04-06-2023 [facility] Start: 1995 Sex Assigned At Female [facility] Start: 04-20-2023 Gender identity Identifies as female gender (finding) [facility] Start: 04-20-2023 Sexual orientation Heterosexual (fin ding) [facility] Start: 12-28-2023 Tobacco smoking stat [facility] Never smoked tobacco [facility] Start: 12-28-2023 Tobacco use and exposure Smokeless t obacco non-user [facility] Start: 02-06-2024 End: 08-30-2024 Alcoholic beverage intake Ex-drinker (finding) [facility] Start: 12-28-2023 History of Social function [facility] Start: 12-28-2023 Tobacco use panel [facility] History of Present illness Narrative 08-30-2024 Teri Garibay LPN - 08/30/2024 8:30 AM EST Note Date & Type Note Facility 08-30-2024 History of Presen t illness Narrative Reason for Appointment: Patient ID: Verónica Decker is a 29 y.o. female who presents for Well Women Visit Patient presents today for Annual Exam. MEDICATIONS Current Outpatient Medications Medication Instructions norethindrone (MICRONOR) 0.35 mg, Oral, Daily ALLERGIES No Known Allergies PROBLEMS Active Ambulatory Problems Diagnosis Date Noted No Active Ambulatory Problems Resolved Ambulatory Problems Diagnosis Date Noted No Resolved Ambulatory Problems No Additional Past Medical History HISTORY PAST MEDICAL HISTORY SOCIAL HISTORY History reviewed. No pertinent past medical history. Social History Tobacco Use Smoking status: Never Smokeless tobacco: Never Substance Use Topics Alcohol use: Not Currently Drug use: Never FAMILY HISTORY No family history on file. SURGICAL HISTORY Past Surgical History: Procedure Laterality Date SECTION, LOW TRANSVERSE 02/01/2022 SECTION, LOW TRANSVERSE 12/21/2023 KNEE SURGERY REVIEW OF SYSTEMS Review of Systems: Review of Systems Genitourinary: Positive for menstrual problem. All other systems reviewed and are negative. OBJECTIVE Objective: Physical Exam Constitutional: Appearance: Normal appearance. She is well-developed. Genitourinary: Vulva normal. Breasts: Breasts are soft. Right: Normal. Left: Normal. Cardiovascular: Rate and Rhythm: Normal rate and [...] nursing note reviewed. Exam conducted with a field coil winder present. Vitals: Estimated body mass index is 27.76 kg/m as calculated from the following: Height as of 12/28/23: 5' 6 . Weight as of this encounter: 172 lb. BP: 120/82 Patient's last menstrual period was 08/13/2024 (approximate). ASSESSMENT & PLAN ICD-10-CM 1. Well woman exam with routine gynecological exam Z01.419 Pap Smear Annual Exam: Patient presents today for an annual exam. Patient states she is doing well and has complaints of heavy cycles. Sent Slynd to [facility] to be mailed to patient & until then patient will continue current OCP. Patient is currently breast feeding and will reach out to office if she desires to have full workup with lab work and ultrasound. Pap was obtained without difficulty. Follow Up: Patient is to return in one year for annual unless needed otherwise. Documented by Teri Garibay LPN on behalf of: Dionisio Miranda DO documented in this encounter [facility] History of Present illness Narrative [...] includes the following prescription(s): magnesium and vit w/hp-rxmvuivgr-yt. Medical History: Active Ambulatory Problems Diagnosis Date [...] nursing note reviewed. Exam conducted with a field coil winder present. Vitals: There is no height or [...] Dionisio Miranda DO documented in this encounter [facility] Clinical Note 02-01-2022 Note Date & Type Note Facility 02-01-2022 Note [facility] [place], [place] NAME: VERÓNICA DECKER DATE OF : MEDICAL REC#: [id number] SUPPLY PERSON: [id number] ISMAEL LOZANO ADMIT DATE: 02/01/2022 07:59:00 [employer] ROBOTICIST DATE: 02/02/2022 22:13 DICTATING PHYSICIAN: DIONISIO MIRANDA [...] Spinal with Duramorph. SURGEON: Dionisio Miranda D.O. ORTHOTICS PROSTHETICS TECHNICIAN: THERESE Abbasi URINE OUTPUT: Yellow and clear. [...] Miranda DO on 02/04/2022 10:17 AM EDT [facility] Signed and Approved by: DR DIONISIO MIRANDA . 02/04/2022 10:17:00 [facility] Discharge summary note 02-01-2022 Note Date & [...] pain free and no longer on narcotics. IF Signed and Approved by: DR DIONISIO MIRANDA . 02/07/2022 10:46:00 [facility] Evaluation note Note Date & Type Note Facility Evaluation note Diagnosis Second trimester state, incidental Placental abnormality in second trimester documented in this encounter [facility] Evaluation note Note Date & Type Note Facility Evaluation note Diagnosis Well woman exam with routine gynecological exam Routine gynecological examination Menorrhagia with irregular cycle documented in this encounter [facility] Summary Purpose Family History No Family History Records FoundNo Family History Records FoundNo Family History Records Found Advance Directives No Advanced Directives Records FoundNo Advanced Directives Records FoundNo Advanced Directives Records Found Procedure Findings Note Patient: VERÓNICA RIVERS [facility]: [id number] Age: 24 years Sex: Female : 1995 Associated Diagnoses: None Author: Manuel Lyman Jr., DO Postoperative Information Post Operative Note Anesthetic utilized: Monitored anesthesia care. Health Status Allergies: Allergic Reactions (Selected) No Known Medication Allergies Current medications: (Selected) Documented Medications Documented Nortrel oral tablet: 1 tab(s), Oral, Daily, Refill(s) 0 Problem list: All Problems Chronic tonsillitis / SNOMED CT 153690312 / Confirmed Abdominal pain, epigastric / SNOMED CT 783401298 / Confirmed Abdominal pain, left upper quadrant / SNOMED CT 258639360 / Confirmed Loss of appetite / SNOMED CT 751720450 / Confirmed Migraine / SNOMED CT 77099020 / Confirmed Nausea in adult / SNOMED CT 5268158054 / Confirmed Patellofemoral syndrome / SNOMED CT 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 denies significant n/v, and is (more content not included)... Additional Source Comments INFORMATION SOURCE (unrecogn ized section and content) DATE CREATED AUTHOR 03/31/2020 [facility] DATE CREATED AUTHOR AUTHOR'S ORGANIZ ATION 06/07/2022 [facility] DATE CREATED AUTHOR AUTHOR'S ORGANIZ ATION 09/02/2024 [facility] EPIC Reason for Visit (unrecogniz ed section and content) Reason Comments Routine Visit Reason Comments Well Women Visit Care Teams (unrecognized sec tion and content) Cable Technician Relationship Specialty Start Date End Date Marcello Byrd MD [address] [place] [address] PCP - General Family Medicine 05/20/23 Cable Technician Relationship Specialty Start Date End Date Marcello Byrd MD [address] [place] [address] PCP - General Family Medicine 05/20/23 Cable Technician Relationship Specialty Start Date End Date Marcello Byrd MD [address] [place] [address] PCP - General Family Medicine 05/20/23 Cable Technician Relationship Specialty Start Date End Date Marcello Byrd MD [address] [place] [address] PCP - General Family Medicine 05/20/23 FOR [...] BE BASED ON THE PRIMARY CLINICAL RECORDS. [employer] provides no warranty or guarantee of the accuracy or completeness of information in this document.
[2025-01-27 16:55] LABS: Basophils Percent Auto 0.4 % (0.2-2.0); Eosinophils Absolute Auto 0.3 10^3/uL (0.0-0.7); Eosinophils Percent Auto 2.8 % (0.9-7.0); Hematocrit 39.9 % (36.0-48.0); Hemoglobin 13.2 g/dL (12.0-16.0); Immature Granulocytes Abs Auto 0.05 10^3/uL (0.00-0.03); Immature Granulocytes Pct Auto 0.4 % (0.0-0.5); Lymphocytes Absolute Auto 2.1 10^3/uL (1.2-3.8); Lymphocytes Percent Auto 18.6 % (20.5-60.0); Mean Corpuscular HGB Conc 33.1 g/dL (29.9-35.2); Mean Corpuscular Hemoglobin 29.5 pg (26.7-34.0); Mean Corpuscular Volume 89.1 fL (81.0-99.0); Mean Platelet Volume 9.8 fL (9.5-13.5); Monocytes Absolute Auto 0.8 10^3/uL (0.3-0.8); Monocytes Percent Auto 7.4 % (1.7-12.0); Neutrophils Absolute Auto 7.8 10^3/uL (1.4-6.5); Neutrophils Percent Auto 70.4 % (43.0-75.0); Platelet Count 269 10^3/uL (150-450); Red Blood Count 4.48 10^6/uL (4.20-5.40); Red Cell Distribution Width 13.2 % (11.0-15.0); White Blood Count 11.1 10^3/uL (4.0-11.0)
[2025-01-27 17:04] LABS: Bilirubin Urine NEGATIVE (NEGATIVE); Blood Urine LARGE (NEGATIVE); Clarity Urine SL CLOUDY (CLEAR); Glucose Urine UA NEGATIVE (NEGATIVE); Ketones Urine NEGATIVE (NEGATIVE); Leukocyte Esterase Urine NEGATIVE (NEGATIVE); Nitrite Urine NEGATIVE (NEGATIVE); Protein Urine 30 mg/dL (NEG/TRACE); Urobilinogen Urine 0.2 EU/dL (0.2-1.0)
[2025-01-27 17:05] LABS: Color Urine RED (YELLOW); Urine Microscopic Indicated YES
[2025-01-27 17:07] LABS: RBC Urine 50-75 #/HPF (0-2); WBC Urine 0-2 #/HPF (NONE SEEN)
[2025-01-27 17:08] LABS: Bacteria Urine TRACE #/HPF (NONE SEEN); Cast Seen? NONE SEEN #/LPF (NONE SEEN); Crystals Seen? None Seen #/HPF (None Seen); Mucus Urine NONE SEEN (NONE SEEN); Squamous Epithelial Cell Urine RARE #/LPF (NONE/RARE); Urine Culture Indicated NO
[2025-01-27 17:12] LABS: Alanine Aminotransferase 22 U/L (14-59); Albumin Globulin Ratio 1.1; Albumin Level 3.7 g/dL (3.4-5.0); Alkaline Phosphatase 46 U/L (46-116); Anion Gap 15.2; Aspartate Amino Transferase 13 U/L (15-37); BUN Creatinine Ratio 22.7; Bilirubin Total 0.2 mg/dL (0.2-1.0); Calcium 9.6 mg/dL (8.5-10.1); Carbon Dioxide 25.4 mmol/L (21.0-32.0); Chloride 102 mmol/L (98-107); Estimated GFR (African America >60 (>=60 mL/min/1.73m^2); Estimated GFR (Non-African Ame >60 (>=60 mL/min/1.73m^2); Globulin 3.5 g/dL; Glucose 97 mg/dL (74-106); Potassium 3.6 mmol/L (3.5-5.1); Sodium 139 mmol/L (136-145); Total Protein 7.2 g/dL (6.4-8.2)
[2025-01-27 18:04] LABS: HCG Quantitative 94046 mIU/mL
--- NOTE | 2025-01-27 18:50 | ED.FEMALEGU1 ---
HPI - Female Genitourinary General Chief complaint: Vaginal Bleeding Stated complaint: Possible Miscarriage Time Seen by Provider: 01/27/25 16:12 Source: patient Mode of arrival: walk-in Limitations: no limitations History of Present Illness HPI Narrative: The patient is 9 weeks this is her third is coming to the ER after she started having some vaginal bleeding, she follow-up with Dr. Miranda at the outpatient, the patient yet did not have any ultrasound of her to confirm the placement Related Data Home Medications ?Medication ?Instructions ?Recorded ?Confirmed vit no.95-ferrous 1 tab PO DAILY 12/21/23 01/27/25 fumarate 28 mg-folic acid 800 mcg tablet () magnesium 200 mg tablet 400 mg PO DAILY 01/27/25 01/27/25 Allergies Allergy/AdvReac Type Severity Reaction Status Date / Time No Known Drug Allergies Allergy Verified 12/21/23 10:31 Review of Systems ROS Status of ROS 10 or more systems reviewed and unremarkable except as noted in history and below PFSH PFS Medical History (Updated 12/21/23 @ 11:16 by Aniyah Evans) delivery delivered ?O82 - Encounter for delivery without indication (ICD-10) Surgical History (Updated 12/21/23 @ 11:16 by Aniyah Evans) H/O knee surgery ?Z98.890 - Other specified postprocedural states (ICD-10) Family History (Updated 12/21/23 @ 11:17 by Aniyah Evans) Grandmother Family history of cancer Family history of diabetes mellitus Social History (Updated 12/21/23 @ 11:18 by Aniyah Evans) Within the past year, how often did you have a drink containing alcohol: never Score interpretation: A score less than 3 is consistent with normal alcohol consumption. Smoking status: Never smoker Non-prescribed substance use: denies use Highest level of school completed/degree received: Bachelor's degree Are you now , , , , never or living with a partner: In a typical week, how many times do you talk on the telephone with family, friends, or neighbors: 3 or more times per week How often do you get together with friends or relatives: 3 or more times per week How often do you attend catholic or religion services: 4 or more times per year Little interest or pleasure in doing things: not at all Feeling down, depressed, or hopeless: not at all Feel stressed/tense/nervous/anxious/difficulty sleeping: not at all Do you think of yourself as: straight/heterosexual Gender Identity: female Exam Narrative Exam Narrative: Nurses notes and vital signs reviewed and patient is not hypoxic. General: Well-appearing and in no apparent distress. Skin: Warm, dry, no pallor noted. No rash. Head: Normocephalic, atraumatic. Neck: Supple, non-tender. Eye: Pupils are equal, round and EOMI. No scleral icterus. Ears, Nose, Mouth, and Throat: TM are clear, no nasal mucosal hypertrophy. Oral mucosa is moist, no posterior oropharynx erythema, uvula is mid-line Cardiovascular: Regular Rate and Rhythm without murmur, gallop or rub. Respiratory: No accessory muscle use or respiratory distress. Lungs are clear to auscultation, no wheezing, rales or rhonchi Chest Wall: no tenderness Back: No midline thoracic or lumbar vertebral tenderness. No CVA tenderness Musculoskeletal: normal ROM, no calf or popliteal tenderness, no lower extremity edema/swelling GI: Abdomen is soft, non-distended. Normal bowel sounds. No masses appreciated. No tenderness to palpation. No rebound, guarding, or rigidity noted. Neurological: A&O x4. No cranial nerve dysfunction observed. No truncal ataxia. Moves all extremities. Sensation intact. Psychiatric: Cooperative and interactive. Normal mood and affect. Constitutional Vital Signs, click to edit/add: Last Vital Signs Temp 98.3 F 01/27/25 16:08 Pulse 113 H 01/27/25 16:08 Resp 18 01/27/25 16:08 BP 138/91 01/27/25 16:08 Pulse Ox 100 01/27/25 16:08 O2 Del Method Room Air 01/27/25 16:08 Course Vital Signs Vital signs: Vital Signs Temperature 98.3 F 01/27/25 16:08 Pulse Rate 113 H 01/27/25 16:08 Respiratory Rate 18 01/27/25 16:08 Blood Pressure 138/91 01/27/25 16:08 Pulse Oximetry 100 01/27/25 16:08 Oxygen Delivery Method Room Air 01/27/25 16:08 Temperature 98.3 F 01/27/25 16:08 Pulse Rate 113 H 01/27/25 16:08 Respiratory Rate 18 01/27/25 16:08 Blood Pressure 138/91 01/27/25 16:08 Pulse Oximetry 100 01/27/25 16:08 Oxygen Delivery Method Room Air 01/27/25 16:08 MDM - Female Genitourinary MDM Narrative Medical decision making narrative: The patient CBC and chemistry showed that the hCG is more than 90,000 and the patient is awaiting ultrasound of uterus to confirm placement of the and rule out ectopic The patient bleeding was a blood clot and a little bit more than her baseline of menstruation but the patient is vitally stable and does not have any active significant bleeding at the moment Patient care will be transferred to Dr. Calero Lab Data Labs: Lab Results 01/27/25 01/27/25 01/27/25 Range/Units 16:43 16:44 16:46 WBC 11.1 H (4.0-11.0) 10^3/uL RBC 4.48 (4.20-5.40) 10^6/uL Hgb 13.2 (12.0-16.0) g/dL Hct 39.9 (36.0-48.0) % MCV 89.1 (81.0-99.0) fL MCH 29.5 (26.7-34.0) pg MCHC 33.1 (29.9-35.2) g/dL RDW 13.2 (11.0-15.0) % Plt Count 269 (150-450) 10^3/uL MPV 9.8 (9.5-13.5) fL Neut % (Auto) 70.4 (43.0-75.0) % Lymph % (Auto) 18.6 L (20.5-60.0) % [place]wey % (Auto) 7.4 (1.7-12.0) % Eos % (Auto) 2.8 (0.9-7.0) % Baso % (Auto) 0.4 (0.2-2.0) % Neut # (Auto) 7.8 H (1.4-6.5) 10^3/uL Lymph # (Auto) 2.1 (1.2-3.8) 10^3/uL Dewey # (Auto) 0.8 (0.3-0.8) 10^3/uL Eos # (Auto) 0.3 (0.0-0.7) 10^3/uL Baso # (Auto) 0.0 (0.0-0.1) 10^3/uL Abs Immat Gran (auto) 0.05 H (0.00-0.03) 10^3/uL Imm/Tot Granulo (auto) 0.4 (0.0-0.5) % Sodium 139 (136-145) mmol/L Potassium 3.6 (3.5-5.1) mmol/L Chloride 102 (98-107) mmol/L Carbon Dioxide 25.4 (21.0-32.0) mmol/L Anion Gap 15.2 BUN 10.0 (7.0-18.0) mg/dL Creatinine 0.44 L (0.55-1.02) mg/dL Est GFR ( Amer) >60 (>=60 mL/min/1.73m^2) Est GFR (Non-Af Amer) >60 (>=60 mL/min/1.73m^2) BUN/Creatinine Ratio 22.7 Glucose 97 (74-106) mg/dL Calcium 9.6 (8.5-10.1) mg/dL Total Bilirubin 0.2 (0.2-1.0) mg/dL AST 13 L (15-37) U/L ALT 22 (14-59) U/L Alkaline Phosphatase 46 (46-116) U/L Total Protein 7.2 (6.4-8.2) g/dL Albumin 3.7 (3.4-5.0) g/dL Globulin 3.5 g/dL Albumin/Globulin Ratio 1.1 HCG, Quant 01161 mIU/mL Urine Color Red A (YELLOW) Urine Clarity Sl cloudy (CLEAR) Urine pH 6.0 (5.0-9.0) Ur Specific [place] 1.020 (1.005-1.025) Urine Protein 30 A (NEG/TRACE) mg/dL Urine Glucose (UA) Negative (NEGATIVE) mg/dL Urine Ketones Negative (NEGATIVE) mg/dL Urine Occult Blood Large A (NEGATIVE) Urine Nitrite Negative (NEGATIVE) Urine Bilirubin Negative (NEGATIVE) Urine Urobilinogen 0.2 (0.2-1.0) EU/dL Ur Leukocyte Esterase Negative (NEGATIVE) Urine RBC 50-75 A (0-2) #/HPF Urine WBC 0-2 A (NONE SEEN) #/HPF Ur Squamous Epith Cells Rare (NONE/RARE) #/LPF Urine Crystals None seen (None Seen) #/HPF Urine Bacteria Trace A (NONE SEEN) #/HPF Urine Casts None seen (NONE SEEN) #/LPF Urine Mucus None seen (NONE SEEN) Ur Culture Indicated? No Blood Type A Positive Antibody Screen Negative Discharge Plan Discharge Patient Disposition: Still a Patient
[2025-01-27 19:50] VITALS: BP 111/79; PULSE 90; O2SAT 100
--- NOTE | 2025-01-27 23:19 | ED.FEMALEGU1 ---
HPI - Female Genitourinary General Chief complaint: Vaginal Bleeding Stated complaint: Possible Miscarriage Time Seen by Provider: 01/27/25 16:12 Source: patient Mode of arrival: walk-in Limitations: no limitations History of Present Illness HPI Narrative: This 29-year-old female was signed out to me at shift change pending ultrasound. She presents for evaluation of vaginal bleeding that started earlier today. Patient was seen and evaluated. She states her bleeding has slowed down at this time. She is approximately 8 to 9 weeks . She has a normal white count and stable hemoglobin. Her vital signs are stable. She is not having any severe abdominal pain or back pain. She has not passed any tissue. Her blood type is a positive. Beta quantitative hCG is greater 94,000. The tech reading on the ultrasound was a single intrauterine with an anechoic area adjacent to it with a normal heart rate in the 170s. There was an extended wait time for the ultrasound to be reviewed. I explained to the patient what the tech reading was and she was satisfied with that. She will follow-up with Dr. Miranda. I instructed her to refrain from any sex, tampons or douching and explained at this time she is still a threatened miscarriage. She verbalized understanding of this and is anxious to be discharged home. I explained to her that I will leave a copy of the final ultrasound report report at registration when it is available and call her if there are any abnormal findings. Ultrasound report was finalized at 1 AM. The uterus appears unremarkable. There is a single live intrauterine with estimated gestational age of 8 weeks and 6 days. heart rate measures 174 bpm. Cervix measures 3.7 cm in length and was closed. Along the margin of the gestational sac was a hypoechoic area measuring 3.5 x 2.8 x 2.9 cm likely representing a small area of subchorionic hemorrhage. There was an additional heterogeneous area measuring 1.1 x 2.4 x 1.2 cm which may also represent a small area of subchorionic hemorrhage. Ovaries appeared normal within the left ovary was a 6 x 3.7 x 5.7 cm anechoic structure likely representing a cyst. Related Data Home Medications ?Medication ?Instructions ?Recorded ?Confirmed vit no.95-ferrous 1 tab PO DAILY 12/21/23 01/27/25 fumarate 28 mg-folic acid 800 mcg tablet () magnesium 200 mg tablet 400 mg PO DAILY 01/27/25 01/27/25 Allergies Allergy/AdvReac Type Severity Reaction Status Date / Time No Known Drug Allergies Allergy Verified 12/21/23 10:31 [facility] Medical History (Updated 01/27/25 @ 21:12 by Trina Calero MD) delivery delivered ?O82 - Encounter for delivery without indication (ICD-10) Surgical History (Updated 12/21/23 @ 11:16 by Aniyah Evans) H/O knee surgery ?Z98.890 - Other specified postprocedural states (ICD-10) Family History (Updated 12/21/23 @ 11:17 by Aniyah Evans) Grandmother Family history of cancer Family history of diabetes mellitus Social History (Updated 12/21/23 @ 11:18 by Aniyah Evans) Within the past year, how often did you have a drink containing alcohol: never Score interpretation: A score less than 3 is consistent with normal alcohol consumption. Smoking status: Never smoker Non-prescribed substance use: denies use Highest level of school completed/degree received: Bachelor's degree Are you now , , , , never or living with a partner: In a typical week, how many times do you talk on the telephone with family, friends, or neighbors: 3 or more times per week How often do you get together with friends or relatives: 3 or more times per week How often do you attend voodoo or worship services: 4 or more times per year Little interest or pleasure in doing things: not at all Feeling down, depressed, or hopeless: not at all Feel stressed/tense/nervous/anxious/difficulty sleeping: not at all Do you think of yourself as: straight/heterosexual Gender Identity: female Exam Constitutional Vital Signs, click to edit/add: Last Vital Signs Temp 98.3 F 01/27/25 16:08 Pulse 90 01/27/25 19:50 Resp 20 01/27/25 19:50 BP 111/79 01/27/25 19:50 Pulse Ox 100 01/27/25 19:50 O2 Del Method Room Air 01/27/25 19:50 Course Vital Signs Vital signs: Vital Signs Temperature 98.3 F 01/27/25 16:08 Pulse Rate 113 H 01/27/25 16:08 Respiratory Rate 18 01/27/25 16:08 Blood Pressure 138/91 01/27/25 16:08 Pulse Oximetry 100 01/27/25 16:08 Oxygen Delivery Method Room Air 01/27/25 16:08 Temperature 98.3 F 01/27/25 16:08 Pulse Rate 90 01/27/25 19:50 Respiratory Rate 20 01/27/25 19:50 Blood Pressure 111/79 01/27/25 19:50 Pulse Oximetry 100 01/27/25 19:50 Oxygen Delivery Method Room Air 01/27/25 19:50 MDM - Female Genitourinary Lab Data Labs: Lab Results 01/27/25 01/27/25 01/27/25 Range/Units 16:43 16:44 16:46 WBC 11.1 H (4.0-11.0) 10^3/uL RBC 4.48 (4.20-5.40) 10^6/uL Hgb 13.2 (12.0-16.0) g/dL Hct 39.9 (36.0-48.0) % MCV 89.1 (81.0-99.0) fL MCH 29.5 (26.7-34.0) pg MCHC 33.1 (29.9-35.2) g/dL RDW 13.2 (11.0-15.0) % Plt Count 269 (150-450) 10^3/uL MPV 9.8 (9.5-13.5) fL Neut % (Auto) 70.4 (43.0-75.0) % Lymph % (Auto) 18.6 L (20.5-60.0) % Lucas % (Auto) 7.4 (1.7-12.0) % Eos % (Auto) 2.8 (0.9-7.0) % Baso % (Auto) 0.4 (0.2-2.0) % Neut # (Auto) 7.8 H (1.4-6.5) 10^3/uL Lymph # (Auto) 2.1 (1.2-3.8) 10^3/uL Lucas # (Auto) 0.8 (0.3-0.8) 10^3/uL Eos # (Auto) 0.3 (0.0-0.7) 10^3/uL Baso # (Auto) 0.0 (0.0-0.1) 10^3/uL Abs Immat Gran (auto) 0.05 H (0.00-0.03) 10^3/uL Imm/Tot Granulo (auto) 0.4 (0.0-0.5) % Sodium 139 (136-145) mmol/L Potassium 3.6 (3.5-5.1) mmol/L Chloride 102 (98-107) mmol/L Carbon Dioxide 25.4 (21.0-32.0) mmol/L Anion Gap 15.2 BUN 10.0 (7.0-18.0) mg/dL Creatinine 0.44 L (0.55-1.02) mg/dL Est GFR ( Amer) >60 (>=60 mL/min/1.73m^2) Est GFR (Non-Af Amer) >60 (>=60 mL/min/1.73m^2) BUN/Creatinine Ratio 22.7 Glucose 97 (74-106) mg/dL Calcium 9.6 (8.5-10.1) mg/dL Total Bilirubin 0.2 (0.2-1.0) mg/dL AST 13 L (15-37) U/L ALT 22 (14-59) U/L Alkaline Phosphatase 46 (46-116) U/L Total Protein 7.2 (6.4-8.2) g/dL Albumin 3.7 (3.4-5.0) g/dL Globulin 3.5 g/dL Albumin/Globulin Ratio 1.1 HCG, Quant 85500 mIU/mL Urine Color Red A (YELLOW) Urine Clarity Sl cloudy (CLEAR) Urine pH 6.0 (5.0-9.0) Ur Specific [place] 1.020 (1.005-1.025) Urine Protein 30 A (NEG/TRACE) mg/dL Urine Glucose (UA) Negative (NEGATIVE) mg/dL Urine Ketones Negative (NEGATIVE) mg/dL Urine Occult Blood Large A (NEGATIVE) Urine Nitrite Negative (NEGATIVE) Urine Bilirubin Negative (NEGATIVE) Urine Urobilinogen 0.2 (0.2-1.0) EU/dL Ur Leukocyte Esterase Negative (NEGATIVE) Urine RBC 50-75 A (0-2) #/HPF Urine WBC 0-2 A (NONE SEEN) #/HPF Ur Squamous Epith Cells Rare (NONE/RARE) #/LPF Urine Crystals None seen (None Seen) #/HPF Urine Bacteria Trace A (NONE SEEN) #/HPF Urine Casts None seen (NONE SEEN) #/LPF Urine Mucus None seen (NONE SEEN) Ur Culture Indicated? No Blood Type A Positive Antibody Screen Negative Discharge Plan Discharge Chief Complaint: Vaginal Bleeding Clinical Impression: Threatened , Vaginal bleeding affecting early Patient Disposition: Home, Self-Care Time of Disposition Decision: 21:12 Condition: Good Prescriptions / Home Meds: No Action magnesium 200 mg tablet 400 mg PO DAILY PNV cmb#95-ferrous fumarate-FA [] 28 mg iron- 800 mcg tablet 1 tab PO DAILY Print Language: Swazi Instructions: Threatened Miscarriage (ED) Referrals: Arcadio Miranda DO [Physician, [employer]] - 1 week Marcello Byrd MD [Primary Care Provider, Family Practice] - 1 week Discharge Date/Time: 01/27/25 21:18
== END 2025-01-27 21:18 | disposition home or self-care (01) ==
PROVIDERS: Emergency Medicine; Emergency Provider Emergency Medicine; PCP Family Medicine
DX: O20.0 Threatened abortion (principal); Z3A.08 8 weeks gestation of pregnancy
CPT/HCPCS: 36415; 76817; 80053; 81001; 84702; 85025; 86850; 86900; 86901; 99284

== ENCOUNTER 2025-02-05 15:15 | Outpatient (OUT) | payer OTHER, SELFPAY ==
[2025-02-05 15:40] LABS: Basophils Percent Auto 0.4 % (0.2-2.0); Eosinophils Absolute Auto 0.1 10^3/uL (0.0-0.7); Eosinophils Percent Auto 0.9 % (0.9-7.0); Hematocrit 36.8 % (36.0-48.0); Hemoglobin 12.4 g/dL (12.0-16.0); Immature Granulocytes Abs Auto 0.04 10^3/uL (0.00-0.03); Immature Granulocytes Pct Auto 0.4 % (0.0-0.5); Lymphocytes Absolute Auto 2.1 10^3/uL (1.2-3.8); Lymphocytes Percent Auto 18.5 % (20.5-60.0); Mean Corpuscular HGB Conc 33.7 g/dL (29.9-35.2); Mean Corpuscular Hemoglobin 30.2 pg (26.7-34.0); Mean Corpuscular Volume 89.8 fL (81.0-99.0); Mean Platelet Volume 9.7 fL (9.5-13.5); Monocytes Absolute Auto 0.7 10^3/uL (0.3-0.8); Monocytes Percent Auto 6.2 % (1.7-12.0); Neutrophils Absolute Auto 8.3 10^3/uL (1.4-6.5); Neutrophils Percent Auto 73.6 % (43.0-75.0); Platelet Count 273 10^3/uL (150-450); Red Cell Distribution Width 13.5 % (11.0-15.0); White Blood Count 11.3 10^3/uL (4.0-11.0)
[2025-02-05 16:02] LABS: Estimated Average Glucose 105 mg/dL; Glycohemoglobin A1C 5.3 % (4.5-6.2)
[2025-02-05 16:02] LABS: Amphetamine Screen Urine NEGATIVE (NEGATIVE); Barbiturates Screen Urine NEGATIVE (NEGATIVE); Benzodiazepines Screen Urine NEGATIVE (NEGATIVE); Buprenorphine Screen Urine NEGATIVE (NEGATIVE); Cannabinoid Screen Urine NEGATIVE (NEGATIVE); Cocaine Screen Urine NEGATIVE (NEGATIVE); Methadone Screen Urine NEGATIVE (NEGATIVE); Methamphetamines Screen Urine NEGATIVE (NEGATIVE); Opiate Screen Urine NEGATIVE (NEGATIVE); Oxycodone Screen Urine NEGATIVE (NEGATIVE); Phencyclidine Screen Urine NEGATIVE (NEGATIVE); Tricyclic Antidepressant Urine NEGATIVE (NEGATIVE)
[2025-02-07 05:07] LABS: HIV Ab/p24 Ag Screen Non Reactive (Non Reactive)
[2025-02-07 06:08] LABS: HBsAg Screen Negative (Negative); HCV Ab Non Reactive (Non Reactive); Rubella Antibodies, IgG 2.74 index (Immune >0.99)
[2025-02-07 11:08] LABS: Rapid Plasma Reagin, Quant Non Reactive titer (NonRea<1:1)
== END 2025-02-05 15:16 | disposition home or self-care (01) ==
LOC: LAB 15:16
PROVIDERS: PCP Family Medicine; Visit Provider Obstetrics & Gynecology
DX: Z34.01 Encounter for supervision of normal first pregnancy, first trimester (principal); N92.6 Irregular menstruation, unspecified
CPT/HCPCS: 36415; 80307; 83036; 85025; 86592; 86762; 86803; 86850; 86900; 86901; 87086; 87340; 87389

== ENCOUNTER 2025-02-25 08:16 | Outpatient (OUT) | payer OTHER, SELFPAY ==
--- OUTSIDE RECORDS SUMMARY | 2025-01-27 14:05 | XMS_ITS ---
Author Organization [facility] in [place] Address [address] [place] [address] Care Team Providers Care Branch Customer Service Representative Name Role Phone Ludwin Byrd Primary Care Provider REASON FOR VISIT er f/u Encounters Encounter Location Date Provider Diagnosis [facility] [address] [facility] [place] [address] 01/27/2025 Ludwin Byrd Plan Of Treatment No Information Progress Notes * Verónica CANO GDOB: [birth year] (29 yo F)Acc No.[id number]:01/27/2025 Patient: Verónica BUTTS :1995 A ge:29 Y S ex:Female Address:[place] [address] * true * Date: Generated for Wojciechi ng/Faleydig/eTransmitting on: 0 02/25/2025 08:18 AM EDT
--- OUTSIDE RECORDS SUMMARY | 2025-02-20 15:10 | XMS_ITS | Encounter Summary ---
Author Organization [facility] Address [address] [place] [address] Care Team Providers Care Designer And Patternmaker Name Role Phone Marcello Byrd MD Primary Care Provider [phone] Reason for Visit * Reason Comments Routine Visit Encounter Details Date Type Department Care Team (Late Contact Info) Description 02/20/2025 3:10 PM EDT Routine [facility] OB [address] [place], [phone] Arcadio Miranda, DO [address] [place] [address] First trimester ([facility]); 12 weeks gestation of ([facility]) Social History Tobacco Use Types Packs/Day Years Used Date Smoking Tobacco: Never Smokeless Tobacco: Never Alcohol Use Standard Drinks/Week Comments Not Currently 0 (1 standard drink = 0.6 oz pur e alcohol) Estimated Date of Delivery Comme nts Yes 09/02/2025 Based on Ultraso und Sex and Gender Information Value Date Recorded Sex Assigned at Female 04/20/2023 5:24 PM EDT Legal Sex Female 11:47 PM EDT Gender Identity Female 04/20/2023 5:24 PM EDT Sexual Orientation Straight 04/20/2023 5: 24 PM EDT documented as of this encounter Last Filed Vital Signs Vital Sign Reading Time Taken Comments Blood Pressure 120/70 02/20/2025 3:30 PM EDT Pulse - - Temperature - - Respiratory Rate - - Oxygen Saturation - - Inhaled Oxygen Concentration - - Weight 78.8 kg (173 lb 12.8 oz) 02/20/2025 3:30 PM EDT Height - - Body Mass Index 27.22 01/31/2025 3:00 PM EDT documented in this encounter Progress Notes * Linda Myers, SAÚL - 02/20/2025 3:10 PM EDT Reason for Appointment: Patient ID: Verónica Cano is a 29 y.o. female who presents for Routine Visit Patient presents today for Return OB appointment. MEDICATIONS Current Outpatient Medications Medication Instructions magnesium oxide (MAG-OX) 400 mg, Daily Vit-Fe Fumarate-FA ( VITAMIN PO) Take by mouth ALLERGIES No Known Allergies PROBLEMS Active Ambulatory [...] SYSTEMS Review of Systems: Review of Systems Constitutional: Negative. HENT: Negative. Eyes: Negative. Respiratory: Negative. Cardiovascular: Negative. Gastrointestinal: Negative. Genitourinary: Negative. Musculoskeletal: Negative. Skin: Negative. Neurological: Negative. All other systems reviewed and are negative. Hematological: Negative. Endocrine: Negative. Allergic/Immunologic: Negative. OBJECTIVE Objective: Physical Exam Constitutional: Appearance: Normal [...] nursing note reviewed. Exam conducted with a clay roaster present. Vitals: Estimated body mass index is 27.22 kg/m?? as calculated from the following: Height as of 01/31/25: 5' 7 . Weight as of this encounter: 173 lb 12.8 oz. BP: 120/70 Patient's last menstrual period was 11/26/2024. ASSESSMENT & PLAN ICD-10-CM 1. First trimester ([facility]) Z34.91 POCT urinalysis dipstick manually resulted 2. 12 weeks gestation of ([facility]) Z3A.12 POCT urinalysis dipstick manually resulted New OB: Patient presents today for 1st time obstetrics appointment with provider. Patient is currently 12w2d . Patients history has been reviewed in great detail including any potential risks. Patient stated she currently has no complaints. Expectations throughout regarding labs, ultrasounds, and appointments have been discussed with the patient in detail. It was reiterated that the patient is to drink 6-8 glasses of water a day, eat 6 small meals a day, do not consume raw or undercooked meat, and stay away from [facility]. Patient has been consulted regarding any further do's and don'tsof . Patient voiced understanding and all questions and concerns were answered. Orders Placed This Encounter Procedures POCT urinalysis dipstick manually resulted Follow Up: Patient is to return in 4 weeks for routine OB appointment. Documented by Linda Myers LPN on behalf of: Yoli Tan PA-C documented in this encounter Plan of Treatment Upcoming Encounters Date Type Department Care Team (Late st Contact Info) Description 03/20/2025 3:10 PM EDT Routine [facility] [address] [place] [phone] Arcadio Miranda, DO [address] [place] [address] 09/03/2025 9:00 AM EST Office Visit [facility] OB [address] [place] [phone] Arcadio Miranda, DO [address] [place], [place] [id number] documented as of this encounter Procedures Procedure Name Priority Date/Time Associated Diagnosis Comments POCT URINALYSIS DIPSTICK Routine 02/20/2025 3:36 PM EDT First trimester ([facility]) 12 weeks gestation of ([facility]) documented in this encounter Results * POCT urinalysis dipstick manually resulted (02/20/2025 3:36 PM EDT) Color, UA Yellow Clarity, UA Clear Glucose, UA Negative Negative - 2000(110) ++++ mg/dL Bilirubin, UA Negative Negative - 4(70) +++ mg/dL Ketones, UA Negative Negative - 160(16) ++++ mg/dL Spec Grav, UA 1.020 1 - 1.03 Blood, UA Negative Negative - 50 Zeus/mcL pH, UA 6.0 5 - 9 Protein, UA Negative Negative - 2000(20) ++++ mg/dL Urobilinogen, UA 0.2 0.2 - 12 mg/dL Leukocytes, UA Negative Negative - 500+++ Jing/mcL Nitrite, UA Negative Negative - Positive Urine 02/20/2025 3:36 PM EDT [facility] DO POINT OF CARE TEST ENTER/EDIT OR DERABLES Final Result documented in this encounter Visit Diagnoses Diagnosis First trimester ([facility]) state, incidental 12 weeks gestation of ([facility]) documented in this encounter Care Teams Designer And Patternmaker Relationship Specialty Start Date End Date Marcello Byrd MD [address] [place] [address] PCP - General Family Medicine 05/20/23 documented as of this encounter
--- NOTE | 2025-02-25 08:18 | US_ITS ---
The [address] [address] Patient Name: JOSSELIN DECKER MRN: [id number] date: 1995 Sex: F Assigned Patient Location: US Current Patient Location: US Accession/Order Number: [id number] Exam Date: 02/25/2025 09:39 Report Date: 02/25/2025 09:47 At the request of: DIONISIO CHADWICK DO Procedure: US OB limited ULTRASOUND OB LIMITED CLINICAL DATA: OB follow-up COMPARISON: 01/27/2025 There is a gestational sac within the uterus. A pole is present. The crown-rump length measurement of 7.4 cm correlates with an ultrasound age of 13 weeks 4 days +/- 1 week 2 days. The estimated date of delivery is August 29, 2025. The estimated date of delivery based on the comparison was September 02, 2025. There is cardiac activity with heart rate of 140 beats per minutes. The developing placenta is posterior. There is a hypoechoic area along the right aspect of the gestational sac measuring 14 x 18 x 19 mm. This may be residual of the implantation hemorrhage seen on the previous study. It is smaller. The amniotic fluid volume is subjectively normal. The cervix is closed with estimated length of 4.3 cm. The right ovary was not identified. The left ovary is seen and it measures 3.7 x 2.2 x 4.2 cm. It contains a small cyst measuring just over 2 cm. No free fluid is seen. US/US OB limited IMPRESSION: SINGLE LIVE INTRAUTERINE GESTATION WITH ULTRASOUND AGE OF 13 WEEKS 4 DAYS. RESOLVING IMPLANTATION HEMORRHAGE. Impression dictated by: Linda Gaffney M.D. 02/25/2025 9:47 AM Dictation Location: [place] [address] Electronically authenticated by: [id number] Y Date: 02/25/2025 09:47
--- OUTSIDE RECORDS SUMMARY | 2025-02-25 08:19 | XMS_ITS | Clinical Summary ---
Author Organization [facility] Address [address] [place] [address] Care Team Providers Care Staffing Analyst Name Role Phone Marcello Byrd MD Primary Care Provider [phone] Allergies No known active allergies Medications magnesium oxide (Mag-Ox) 400 mg tablet 400 mg Daily Active Vit-Fe Fumarate-FA ( VITAMIN PO) Take by mouth Active Encounters Date Type Department Care Team Description 02/20/2025 3:10 PM EDT Routine [facility] [address] [place] [address] Arcadio Miranda, First trimester ([facility]); 12 weeks gestation of ([facility]) 02/20/2025 Bamboo flowsheet [facility] OB [address] [place] [address] Arcadio Miranda DO 02/13/2025 Travel 02/12/2025 Telephone [facility] [address] [place] [address] Teri Garibay LPN 02/05/2025 Clinisync Result Encounter [facility] External Department Unsolicited Arcadio Miranda DO 02/04/2025 Telephone [facility] [address] [place] [address] Shavonne Arevalo MA 01/31/2025 2:30 PM EDT Initial [facility] [address] [place] [address] GA: [id number] 01/31/2025 2:00 PM EDT Ancillary Procedure [facility] [address] [place] [address] Missed menses 01/28/[address] [address] [place] [address] Teri Garibay LPN 01/27/2025 Abstract [facility] [address] [place] [address] Arcadio Miranda DO 01/24/2025 Travel from Last 3 Months Social [...] 12.8 oz) 02/20/2025 3:30 PM EDT Height 170.2 cm (5' 7 ) 01/31/2025 3:00 PM EDT Body Mass Index 27.22 01/31/2025 3:00 PM EDT Plan of Treatment Upcoming Encounters Date Type Department Care Team (Late st Contact Info) Description 03/20/2025 3:10 PM EDT Routine [facility] [address] [place] [address] Arcadio Miranda, [address] [place] [address] [place], [place] [id number] 09/03/2025 9:00 AM EST Office Visit [facility] [address] [facility] [place] [address] Arcadio Miranda, DO [address] [facility] [place] [address] Procedures Procedure Name Priority Date/Time Associated Diagnosis Comments CULTURE, URINE, ROUTINE Routine 02/21/2025 12:08 PM EDT Missed menses POCT URINALYSIS DIPSTICK Routine 02/20/2025 3:36 PM EDT First trimester ([facility]) 12 weeks gestation of ([facility]) HBSAG SCREEN Routine 02/05/2025 3:30 PM EDT RAPID PLASMA REAGIN, QUANT Routine 02/05/2025 3:30 PM EDT HCV ANTIBODY RFX TO QUANT PCR Routine 02/05/2025 3:30 PM EDT ALL RUBELLA IGG AB Routine 02/05/2025 3: 30 PM EDT HIV AB/P24 AG WITH REFLEX Routine 02/05/2025 3:30 PM EDT ALL TYPE AND SCREEN Routine 02/05/2025 3 :30 PM EDT MLR HEMOGLOBIN A1C Routine 02/05/2025 3: 30 PM EDT ALL CBC WITH AUTO DIFF Routine 02/05/2025 3:30 PM EDT [facility] DRUG SCREEN RAPID (URINE) Routine 02/05/2025 3:20 PM EDT POCT , URINE Routine 01/31/2025 3:10 PM EDT Missed menses POCT URINALYSIS DIPSTICK Routine 01/31/2025 3:09 PM EDT Missed menses OB TRANSVAGINAL Routine 01/31/2025 2: 30 PM EDT Missed menses from Last 3 Months Results * Urine culture (02/21/2025 12:08 PM EDT) Urine Urine specimen obtained by clean catch procedure / Unknown Arcadio Ruth DO LAB MICROBIOLOGY - GENERAL ORDER SHARATH Final Result EXTERNAL LAB * POCT urinalysis dipstick manually resulted (02/20/2025 3:36 PM EDT) Only the most recent of2 resultswithin the time period is included. Color, UA Yellow Clarity, UA Clear Glucose, [...] - Positive Urine 02/20/2025 3:36 PM EDT Qiroo DO POINT OF CARE TEST ENTER/EDIT OR DERABLES Final Result * HBSAG SCREEN (02/05/2025 3:30 PM EDT) HBSAG SCREEN Negative Negative [facility] Comment: Performed at: - [address] [id number] Cloth Finishing Range Tender: Jakob Jeffery PhD, Phone: [phone] 02/05/2025 3:30 PM EDT 02/05/2025 3:35 PM EDT Narrative [facility] - 02/07/2025 11:08 AM EDT Arcadio Ruth DO LAB BLOOD ORDERABLES Final Resul t Performing Organization Address [facility] Co de Phone Number [facility] * RAPID PLASMA REAGIN, QUANT (02/05/2025 3:30 PM EDT) RAPID PLASMA REAGIN, QUANT Non Reactive NonRea<1: 1 titer [facility] Comment: Please Note: This test does not meet current guidelines for screening and diagnosis of syphilis. This test is intended for following treatment response in patients being treated for syphilis infection. To screen for syphilis infection, a reflex cascade that includes both RPR and a treponema-specific assay should be utilized, such as Treponema pallidum (Syphilis) Screening [place] (793055) or Rapid Plasma Reagin (RPR) Test With Reflex to Quantitative RPR and Confirmatory Treponema pallidum Antibodies (407002). Performed at: [facility] [address] [id number] Cloth Finishing Range Tender: Jakob Jeffery PhD, Phone: [phone] 02/05/2025 3:30 PM EDT 02/05/2025 3:35 PM EDT Narrative [facility] - 02/07/2025 11:08 AM EDT Arcadio Ruth DO LAB BLOOD ORDERABLES Final Resul t Performing Organization Address City/[facility] Co de Phone Number [facility] * HIV AB/P24 AG WITH REFLEX (02/05/2025 3:30 PM EDT) HIV AB/P24 AG SCREEN Non Reactive Non Reactive [facility] Comment: HIV-1/HIV-2 antibodies and HIV-1 p24 antigen were NOT detected. There is no laboratory evidence of HIV infection. HIV Negative Performed at: [address] [id number] Cloth Finishing Range Tender: Jakob Jeffery PhD, Phone: [phone] 02/05/2025 3:30 PM EDT 02/05/2025 3:35 PM EDT Narrative [facility] - 02/07/2025 5:07 AM EDT [facility] BLOOD ORDERABLES Final Resul t Performing Organization Address [facility] Co de Phone Number [facility] * HCV ANTIBODY RFX TO QUANT PCR (02/05/2025 3:30 PM EDT) Pathologist [facility] HCV AB Non Reactive Non Reactive [facility] INTERPRETATION: Comment . [facility] Comment: Not infected with HCV unless early or acute infection is suspected (which may be delayed in an immunocompromised individual), or other evidence exists to indicate HCV infection. 02/05/2025 3:30 PM EDT 02/05/2025 3:35 PM EDT Narrative [facility] - 02/07/2025 6:08 AM EDT [facility] LAB BLOOD ORDERABLES Final Resul t Performing Organization Address [facility] de Phone Number [facility] * MLR HEMOGLOBIN A1C (02/05/2025 3:30 PM EDT) [facility] GLYCOHEMOGLOBIN A1C 5.3 4.5 - 6.2 % [facility] Comment: ADA RECOMMENDED LIMIT 4.0 - 6.0 ADA THERAPEUTIC TARGET < 7.0 ACTION SUGGESTED > 7.0 ESTIMATED AVERAGE GLUCOSE 105 mg/dL [facility] 02/05/2025 3:30 PM EDT 02/05/2025 3:35 PM EDT Narrative [facility] - 02/05/2025 4:05 PM EDT Qiroo DO [facility] Final Result Performing Organization Address [facility] Phone Number [facility] * ALL TYPE AND SCREEN (02/05/2025 3:30 PM EDT) Pathologist [facility] BLOOD TYPE A Positive [facility] ANTIBODY SCREEN NEGATIVE [facility] 02/05/2025 3:30 PM EDT 02/05/2025 3:35 PM EDT Narrative [facility] - 02/05/2025 4:23 PM EDT [facility] , Arcadio Rodrigueszio DO [facility] Final Result [facility] * ALL RUBELLA IGG AB (02/05/2025 3:30 PM EDT) [facility] RUBELLA ANTIBODIES, IGG 2.74 Immune >0.99 index [facility] Comment: Non-immune <0.90 Equivocal 0.90 - 0.99 Immune >0.99 Performed at: - [address] [id number] Cloth Finishing Range Tender: Jakob Jeffery PhD, Phone: [phone] 02/05/2025 3:30 PM EDT 02/05/2025 3:35 PM EDT Narrative [facility] - 02/07/2025 6:08 AM EDT Arcadio Ruth DO [facility] Final Result [facility] * (ABNORMAL) ALL CBC WITH AUTO DIFF (02/05/2025 3:30 PM EDT) [facility] WBC 11.3(H) 4.0 - 11.0 10 3/uL [facility] TB RBC 4.10(L) 4.20 - 5.40 10 6/uL [facility] TB HGB 12.4 12.0 - 16.0 g/dL TB TB HCT 36.8 36.0 - 48.0 % TB TB MCV 89.8 81.0 - 99.0 fL TB TB MCH 30.2 26.7 - 34.0 pg [facility] TB MCHC 33.7 29.9 - 35.2 g/dL TB TB RDW 13.5 11.0 - 15.0 % TB TB PLT 273 150 - 450 10 3/uL TB TB MPV 9.7 9.5 - 13.5 fL TB NEUTROPHILS PERCENT AUTO 73.6 43.0 - 75.0 % [facility] LYMPHOCYTES PERCENT AUTO 18.5(L) 20.5 - 60.0 % [facility] MONOCYTES PERCENT AUTO 6.2 1.7 - 12.0 % [facility] EO % 0.9 0.9 - 7.0 % [facility] BASOPHILS PERCENT AUTO 0.4 0.2 - 2.0 % [facility] IMMATURE GRANULOCYTES PCT AUTO 0.4 0.0 - 0.5 % [facility] NEUTROPHILS ABSOLUTE AUTO 8.3(H) 1.4 - 6.5 10 3/uL [facility] LYMPHOCYTES ABSOLUTE AUTO 2.1 1.2 - 3.8 10 3/uL [facility] MONOCYTES ABSOLUTE AUTO 0.7 0.3 - 0.8 10 3/uL [facility] TBH EO # 0.1 0.0 - 0.7 10 3/uL [facility] BASOPHILS ABSOLUTE AUTO 0.0 0.0 - 0.1 10 3/uL [facility] IMMATURE GRANULOCYTES ABS AUTO 0.04(H) 0.00 - 0.03 10 3/uL [facility] 02/05/2025 3:30 PM EDT 02/05/2025 3:35 PM EDT Narrative [facility] - 02/05/2025 3:54 PM EDT Arcadio Carrerao DO [facility] Final Result [facility] * TB DRUG SCREEN RAPID (URINE) (02/05/2025 3:20 PM EDT) Pathologist [facility] CANNABINOID SCREEN URINE NEGATIVE NEGATIVE [facility] PHENCYCLIDINE SCREEN URINE NEGATIVE NEGATIVE [facility] COCAINE SCREEN URINE NEGATIVE NEGATIVE [facility] METHAMPHETAMINES SCREEN URINE NEGATIVE NEGATIVE [facility] OPIATE SCREEN URINE NEGATIVE NEGATIVE [facility] AMPHETAMINE SCREEN URINE NEGATIVE NEGATIVE [facility] BENZODIAZEPINES SCREEN URINE NEGATIVE NEGATIVE [facility] TRICYCLIC ANTIDEPRESSANT URINE NEGATIVE NEGATIVE [facility] METHADONE SCREEN URINE NEGATIVE NEGATIVE [facility] BARBITURATES SCREEN URINE NEGATIVE NEGATIVE [facility] OXYCODONE SCREEN URINE NEGATIVE NEGATIVE [facility] BUPRENORPHINE SCREEN URINE NEGATIVE NEGATIVE [facility] Comment: DRUG CLASS TEST SYSTEM CUT-OFF CONCENTRATIONS ARE FOLLOWS: AMP (Amphetamine): 500 ng/mL BAR (Barbiturates): 200 ng/mL BZO (Benzodiazepines): 150 ng/mL BUP (Buprenorphine): 10 ng/mL HALLE (Cocaine): 150 ng/mL mAMP (Methamphetamine): 500 ng/mL MTD (Methadone): 200 ng/mL OPI (Opiates): 100 ng/mL OXY (Oxycodone): 100 ng/mL PCP (Phencyclidine): 25 ng/mL THC (Cannabinoids): 50 ng/mL TCA (Trycyclic Antidepressants): 300 ng/mL 02/05/2025 3:20 PM EDT 02/05/2025 3:35 PM EDT Narrative [facility] - 02/05/2025 4:03 PM EDT us Arcadio Ruth DO [facility] Final Result [facility] * (ABNORMAL) POCT , urine manually resulted (01/31/2025 3:10 PM EDT) Preg Test, Ur Positive Negative Urine 01/31/2025 3:10 PM EDT us Arcadio Ruth DO POINT OF CARE TEST ENTER/EDIT OR DERABLES Final Result * US OB transvaginal (01/31/2025 2:30 PM EDT) Anatomical Region Laterality Modality Body Ultrasound 02/01/2025 6:17 AM EDT Narrative 02/01/2025 6:17 AM EDT EXAM: US OB TRANSVAGINAL HISTORY: Dating. COMPARISON: None available. TECHNIQUE: Two-dimensional transvaginal grayscale ultrasound imaging of the pelvis was performed. Color Doppler evaluation of the ovaries was also performed. FINDINGS: The uterus demonstrates a normal homogeneous echotexture. The cervix measures 4.3 cm in length and the cervical os is closed. The right ovary measures 2.9 x 1.9 x 2.1 cm and demonstrates a normal echotexture. There is normal color Doppler flow. The left ovary measures 6.2 x 5.0 x 5.4 cm and demonstrates a normal echotexture. There is normal color Doppler flow. There is a 5.2 cm simple cyst. No fluid is present within the cul-de-sac. There is a single, live intrauterine gestation identified with a heart rate of 172 beats per minute and a crown-rump length measurement of 2.9 cm, correlating to a gestational age of 9 weeks 5 days (+/- 6 days). There are two subchorionic hemorrhages visualized, measuring 2.5 cm and 2.4 cm. A yolk sac is visualized. IMPRESSION: 1. Single, live intrauterine gestation 9 weeks, 3 days by LMP. Today's ultrasound measurements correlate with a gestational age of 9 weeks 5 days (+/- 6 days). MIGUE by today's ultrasound is 08/31/2025. 2. Two subchorionic hemorrhages. A short term, follow up ultrasound is recommended to monitor for resolution. 3. Simple left ovarian cyst. 4. Normal color Doppler evaluation of the bilateral ovaries. Interpreted by: Electronically signed by YI SAUL II, MD, PHD at 01-Feb-2025 06:15:38 AM [facility] Procedure Note Yi Saul MD - 02/01/2025 EXAM: US OB TRANSVAGINAL HISTORY: Dating. COMPARISON: None available. TECHNIQUE: Two-dimensional transvaginal grayscale ultrasound imaging ofthe pelvis was performed. Color Doppler evaluation of the ovaries was alsoperformed. FINDINGS: The uterus demonstrates a normal homogeneous echotexture. The cervixmeasures 4.3 cm in length and the cervical os is closed. The right ovary measures 2.9 x 1.9 x 2.1 cm and demonstrates a normalechotexture. There is normal color Doppler flow. The left ovary measures 6.2 x 5.0 x 5.4 cm and demonstrates a normalechotexture. There is normal color Doppler flow. There is a 5.2 cm simplecyst. No fluid is present within the cul-de-sac. There is a single, live intrauterine gestation identified with a fetalheart rate of 172 beats per minute and a crown-rump length measurement of2.9 cm, correlating to a gestational age of 9 weeks 5 days (+/- 6 days).There are two subchorionic hemorrhages visualized, measuring 2.5 cm and2.4 cm. A yolk sac is visualized. IMPRESSION: 1. Single, live intrauterine gestation 9 weeks, 3 days by LMP. Today'sultrasound measurements correlate with a gestational age of 9 weeks 5 days(+/- 6 days). MIGUE by today's ultrasound is 08/31/2025. 2. Two subchorionic hemorrhages. A short term, follow up ultrasound isrecommended to monitor for resolution. 3. Simple left ovarian cyst. 4. Normal color Doppler evaluation of the bilateral ovaries. Interpreted by: Electronically signed by YI SAUL II, MD, PHD [id number] 06:15:38 AM [facility] us Arcadio Ruth DO IMG OB US PROCEDURES Final Resul t from Last 3 Months [place] [address] Care Teams Staffing Analyst Relationship Specialty Start Date End Date Marcello Byrd MD [address] [place] [address] PCP - General Family Medicine 05/20/23
--- OUTSIDE RECORDS SUMMARY | 2025-02-25 08:19 | XMS_ITS | Encounter Summary ---
Author Organization [facility] Address [address] [facility] [place] [address] Care Team Providers Care Dip Brazier Name Role Phone Marcello Byrd MD Primary Care Provider [phone] Encounter Details Date Type Department Care Team (Late st Contact Info) Description 02/12/2025 Telephone [facility] [address] [facility] [place] [address] Teri Garibay LPN Social History Tobacco Use Types Packs/Day Years [...] PM EDT documented as of this encounter Miscellaneous Notes * Telephone Encounter - Teri Garibay LPN - 02/12/2025 4:45 PM EDT 02/12/2025 @2:33pm Patient called and LMOM inquiring as to what she would be able to take for insomnia? Patient request a call back. @4:46pm Called patient and informed her that she is able to take either Benadryl or Tylenol PM--both are able to be taken OTC as directed safely during . PVU and will reach out to office with any further questions/concerns. Teri Garibay LPN documented in this encounter Plan of Treatment Upcoming Encounters Date Type Department Care Team ([facility] st Contact Info) Description 03/20/2025 3:10 PM EDT Routine [facility] [address] [facility] [place] [address] Arcadio Miranda, DO [address] [place] [address] 09/03/2025 9:00 AM EST Office Visit [facility] [address] [facility] [place] [address] Arcadio Miranda, DO [address] [facility] [place] [address] documented as of this encounter Visit Diagnoses Not on filedocumented in this encounter Care Teams Dip Brazier Relationship Specialty Start Date End Date Marcello Byrd MD [address] [facility] [place] [address] PCP - General Family Medicine 05/20/23 documented as of this encounter
--- OUTSIDE RECORDS SUMMARY | 2025-02-25 08:19 | XMS_ITS | Encounter Summary ---
Author Organization [facility] Address [address] [facility] [place] [address] Care Team Providers Care Power Reactor Supervisor Name Role Phone Marcello Byrd MD Primary Care Provider [phone] Encounter Details Date Type Department Care Team (Late st Contact Info) Description 02/20/2025 Bamboo flowsheet [facility] OB [address] [place] [address] Arcadio Miranda DO [address] [place], [place] [address] Social History Tobacco Use Types Packs/Day Years [...] Description 03/20/2025 3:10 PM EDT Routine [facility] OB [address] [place] [address] Arcadio Miranda DO [address] [place], [facility] 09/03/2025 9:00 AM EST Office Visit [facility] OB [address] [facility] [place] [address] Arcadio Miranda DO [address] [facility] [address] [place], [place] [id number] documented as of this encounter Visit Diagnoses Not on filedocumented in this encounter Care Teams Power Reactor Supervisor Relationship Specialty Start Date End Date Marcello Byrd MD [address] [facility] [place] [phone] PCP - General Family Medicine 05/20/23 documented as of this encounter
--- OUTSIDE RECORDS SUMMARY | 2025-02-25 08:19 | XMS_ITS | Encounter Summary ---
Author Organization [facility] Address [address] [facility] [place] [address] Care Team Providers Care Co Founder Name Role Phone Marcello Byrd MD Primary Care Provider [phone] Encounter Details Date Type Department Care Team (Late Contact Info) Description 01/27/2025 Abstract [facility] [address] [place] [phone] Arcadio Miranda DO [facility] [address] [place], [facility] Social History Tobacco Use Types Packs/Day [...] Description 03/20/2025 3:10 PM EDT Routine [facility] OB [address] [place] [phone] Arcadio Miranda DO [address] [place], [facility] 09/03/2025 9:00 AM EST Office Visit [facility] OB [address] [facility] [place] [phone] Arcadio Miranda DO [address] [facility] [address] [place], [place] [phone] documented as of this encounter Visit Diagnoses Not on filedocumented in this encounter Care Teams Co Founder Relationship Specialty Start Date End Date Marcello Byrd MD [address] [facility] [place] [address] PCP - General Family Medicine 05/20/23 documented as of this encounter
--- OUTSIDE RECORDS SUMMARY | 2025-02-25 08:19 | XMS_ITS | Encounter Summary ---
Author Organization [facility] Address [address] [place] [facility] [address] Care Team Providers Care Cath Lab Radiology Technician Name Role Phone Marcello Byrd MD Primary Care Provider [phone] Encounter Details Date Type Department Care Team (Late st Contact Info) Description 09/10/2023 Clinisync Result Encounter [facility] External Department Unsolicited Dionisio Miranda, DO [address] [place], [facility] Social History Tobacco Use Types Packs/Day Years [...] PM EDT Routine [facility] [address] [place] [address] Dionisio Miranda DO [address] [place], [facility] 09/03/2025 9:00 AM EST Office Visit [facility] OB [address] [place] [address] Dionisio Miranda, DO [address] [place] [address] [phone] (work) documented as of this encounter Procedures Procedure Name Priority Date/Time Associated Diagnosis Comments US OB TRANSVAGINAL 09/10/2023 10 :35 AM EST documented in this encounter Results * US OB TRANSVAGINAL (09/10/2023 10:35 AM EST) Anatomical Region Laterality Modality Other 09/10/2023 10:3 5 AM EST Narrative 09/10/2023 10:38 AM EST [address] [address] Ultrasound Report Signed Patient: VERÓNICA CANO MR#: [id number] : 1995 Acct:[id number] Age/Sex: 28 / F ADM Date: 09/10/23 Loc: LAB Attending Dr: Yoli Tan Ordering Physician: Dionisio Miranda D.O. Date of Service: 09/10/23 Procedure(s): US OB transvaginal Accession Number(s): [id number] cc: Dionisio Miranda D.O.; Marcello Byrd M.D. [address] [address] Patient Name: VERÓNICA CANO MRN: [id number] date: 1995 Sex: F Assigned Patient Location: LAB Current Patient Location: LAB Accession/Order Number: [id number] Exam Date: 09/10/2023 09:25 Report Date: 09/10/2023 [...] Signed By: 09/10/23 1038 DD/ 1035 TD/TT: Studio Artist: Procedure Note Radiology, Radiologist, MD - 10/19/2023 [place] [address] Ultrasound Report Signed Patient: VERÓNICA CANO GMR#: [id number] : 1995Acct:[id number] Age/Sex: 28 FADM Date: 09/10/23 Loc: LAB Attending Dr: Yoli Tan Ordering Physician: Dionisio Miranda D.O. Date of Service: 09/10/23 Procedure(s): US OB transvaginal Accession Number(s): [id number] cc: Dionisio Miranda D.O.; Marcello Byrd M.D. [address] [place] [address] Patient Name: VERÓNICA CANO MRN: [id number] date: 1995 Sex: F Assigned Patient Location: LAB Current Patient Location: LAB Accession/Order Number: [id number] Exam Date: 09/10/2023 09:25 Report Date: 09/10/2023 [...] M.D. Signed By:09/10/23 1038 DD/ 1035 TD/TT: Studio Artist: us Dionisio Ruth DO [facility] Final Result documented in this encounter Visit Diagnoses Not on filedocumented in this encounter Care Teams Cath Lab Radiology Technician Relationship Specialty Start Date End Date Marcello Byrd MD [address] [place] [address] PCP - General Family Medicine 05/20/23 documented as of this encounter
--- OUTSIDE RECORDS SUMMARY | 2025-02-25 08:19 | XMS_ITS | Patient Health Record ---
Author Organization [facility] in [place] Address [address] [place] [address] Care Team Providers Care E Mail System Administrator Name Role Phone Ludwin Byrd Primary Care Provider Results Component Value Reference Range Notes CBC AUTO DIFF Reviewed date:01/27/2025 06:06:58 PM Interpretation: Performing Lab: Notes/Report: [facility] , White Blood Count 11.1 4.0-11.0 10 3/uL Red Blood Count 4.48 4.20-5.40 10 6/uL Hemoglobin 13.2 12.0-16.0 g/dL Hematocrit 39.9 36.0-48.0 % Mean Corpuscular Volume 89.1 81.0-99.0 fL Mean Corpuscular Hemoglobin 29.5 26.7-34.0 pg Mean Corpuscular HGB Conc 33.1 29.9-35.2 g/dL Red Cell Distribution Width 13.2 11.0-15.0 % Platelet Count 269 150-450 10 3/uL Mean Platelet Volume 9.8 9.5-13.5 fL Neutrophils Percent Auto 70.4 43.0-75.0 % Lymphocytes Percent Auto 18.6 20.5-60.0 % Monocytes Percent Auto 7.4 1.7-12.0 % Eosinophils Percent Auto 2.8 0.9-7.0 % Basophils Percent Auto 0.4 0.2-2.0 % Immature Granulocytes Pct Auto 0.4 0.0-0.5 % Neutrophils Absolute Auto 7.8 1.4-6.5 10 3/uL Lymphocytes Absolute Auto 2.1 1.2-3.8 10 3/uL Monocytes Absolute Auto 0.8 0.3-0.8 10 3/uL Eosinophils Absolute Auto 0.3 0.0-0.7 10 3/uL Basophils Absolute Auto 0.0 0.0-0.1 10 3/uL Immature Granulocytes Abs Auto 0.05 0.00-0.03 10 3/uL Performing Lab: see note ML - [facility] LB PREG QUANT HCG Reviewed date:01/27/2025 06:14:49 PM Interpretation: Performing Lab: Notes/Report: [facility] , HCG Quantitative 46398 5-50 0.2-1 WEEK 50-500 1-2 WEEKS 100-5,000 2-3 WEEKS 500-10,000 3-4 WEEKS 1,000-50,000 4-5 WEEKS 10,000-100,000 5-6 WEEKS 15,000-200,000 6-8 WEEKS 10,000-100,000 2-3 MONTHS Performing Lab: see note ML - [facility] PROF 14(COMP METB) Reviewed date:01/27/2025 06:06:58 PM Interpretation: Performing Lab: Notes/Report: [facility] , Sodium 139 136-145 mmol/L Potassium 3.6 3.5-5.1 mmol/L Chloride 102 98-107 mmol/L Carbon Dioxide 25.4 21.0-32.0 mmol/L Anion Gap 15.2 Glucose 97 74-106 mg/dL Blood Urea Nitrogen 10.0 7.0-18.0 mg/dL Creatinine 0.44 0.55-1.02 mg/dL Estimated GFR ( Virgie >60 >=60 mL/min/1.73m 2 Estimated GFR (Non- Tanesha >60 >=60 mL/min/1.73m 2 BUN Creatinine Ratio 22.7 Calcium 9.6 8.5-10.1 mg/dL Bilirubin Total 0.2 0.2-1.0 mg/dL Aspartate Amino Transferase 13 15-37 U/L Alanine Aminotransferase 22 14-59 U/L Alkaline Phosphatase 46 46-116 U/L Total Protein 7.2 6.4-8.2 g/dL Albumin Level 3.7 3.4-5.0 g/dL Globulin 3.5 Albumin Globulin Ratio 1.1 Performing Lab: see note ML - [facility] LB UA (CLEAN or CATCH) MONITOR CAR OPERATOR or M ICRO IF IND. Reviewed date:01/27/2025 06:06:58 PM Interpretation: Performing Lab: Notes/Report: [facility] , Color Urine RED YELLOW Clarity Urine SL CLOUDY CLEAR Specific [place] Urine 1.020 1.005-1.025 pH Urine 6.0 5.0-9.0 Protein Urine 30 NEG/TRACE mg/dL Glucose Urine UA NEGATIVE NEGATIVE mg/dL Bilirubin Urine NEGATIVE NEGATIVE Ketones Urine NEGATIVE NEGATIVE mg/dL Blood Urine LARGE NEGATIVE Nitrite Urine NEGATIVE NEGATIVE Urobilinogen Urine 0.2 0.2-1.0 EU/dL Leukocyte Esterase Urine NEGATIVE NEGATIVE Urine Microscopic Indicated YES Performing Lab: see note ML - [facility] LB URINE MICROSCOPIC ONLY Reviewed date:01/27/2025 06:06:58 PM Interpretation: Performing Lab: Notes/Report: [facility] , WBC Urine 0-2 NONE SEEN #/HPF RBC Urine 50-75 0-2 #/HPF Bacteria Urine TRACE NONE SEEN #/HPF Mucus Urine NONE SEEN NONE SEEN Squamous Epithelial Cell Urine RARE NONE/RARE #/LPF Crystals Seen? None Seen None Seen #/HPF Cast Seen? NONE SEEN NONE SEEN #/LPF Urine Culture Indicated NO Performing Lab: see note ML - [facility] LB Type and Screen Reviewed date:01/27/2025 06:06:58 PM Interpretation: Performing Lab: Notes/Report: [facility] , Blood Type A Positive Antibody Screen NEGATIVE CBC AUTO DIFF Reviewed date:02/06/2025 09:44:09 PM Interpretation: Performing Lab: Notes/Report: [facility] , White Blood Count 11.3 4.0-11.0 10 3/uL Red Blood Count 4.10 4.20-5.40 10 6/uL Hemoglobin 12.4 12.0-16.0 g/dL Hematocrit 36.8 36.0-48.0 % Mean Corpuscular Volume 89.8 81.0-99.0 fL Mean Corpuscular Hemoglobin 30.2 26.7-34.0 pg Mean Corpuscular HGB Conc 33.7 29.9-35.2 g/dL Red Cell Distribution Width 13.5 11.0-15.0 % Platelet Count 273 150-450 10 3/uL Mean Platelet Volume 9.7 9.5-13.5 fL Neutrophils Percent Auto 73.6 43.0-75.0 % Lymphocytes Percent Auto 18.5 20.5-60.0 % Monocytes Percent Auto 6.2 1.7-12.0 % Eosinophils Percent Auto 0.9 0.9-7.0 % Basophils Percent Auto 0.4 0.2-2.0 % Immature Granulocytes Pct Auto 0.4 0.0-0.5 % Neutrophils Absolute Auto 8.3 1.4-6.5 10 3/uL Lymphocytes Absolute Auto 2.1 1.2-3.8 10 3/uL Monocytes Absolute Auto 0.7 0.3-0.8 10 3/uL Eosinophils Absolute Auto 0.1 0.0-0.7 10 3/uL Basophils Absolute Auto 0.0 0.0-0.1 10 3/uL Immature Granulocytes Abs Auto 0.04 0.00-0.03 10 3/uL Performing Lab: see note [facility] LB RUBELLA AB IGG Reviewed date:02/07/2025 07:43:15 PM Interpretation: Performing Lab: Notes/Report: [facility] , Rubella Antibodies, IgG 2.74 Immune > 0.99 index Non-immune <0.90 Equivocal 0.90 - 0.99 Immune >0.99 Performed at: [address] [id number] Systems Mechanic: Jakob Jeffery PhD, Phone: [phone] Performing Lab: see note [facility] HCV Antibody RFX to Quant PC R Reviewed date:02/07/2025 07:43:15 PM Interpretation: Performing Lab: Notes/Report: [facility] , HCV Ab Non Reactive Non Reactive Interpretation: Comment . Not infected with HCV unless early or acute infection is suspected (which may be delayed in an immunocompromised individual), or other evidence exists to indicate HCV infection. Performing Lab: see note [facility] HIV Ab/p24 Ag with Reflex Reviewed date:02/07/2025 07:43:15 PM Interpretation: Performing Lab: Notes/Report: [facility] , HIV Ab/p24 Ag Screen Non Reactive Non Reactive HIV-1/HIV-2 antibodies and HIV-1 p24 antigen were NOT detected. There is no laboratory evidence of HIV infection. HIV Negative Performed at: [address] [id number] Systems Mechanic: Jakob Jeffery PhD, Phone: [phone] Performing Lab: see note LC - [facility] LB GLYCOHEMOGLOBIN A1C Reviewed date:02/06/2025 09:44:09 PM Interpretation: Performing Lab: Notes/Report: [facility] , Glycohemoglobin A1C 5.3 4.5-6.2 % ADA RECOMMENDED LIMIT 4.0 - 6.0 ADA THERAPEUTIC TARGET < 7.0 ACTION SUGGESTED > 7.0 Estimated Average Glucose 105 Performing Lab: see note ML - [facility] DRUG SCREEN RAPID (URINE) Reviewed date:02/06/2025 09:44:09 PM Interpretation: Performing Lab: Notes/Report: [facility] , Cannabinoid Screen Urine NEGATIVE NEGATIVE Phencyclidine Screen Urine NEGATIVE NEGATIVE Cocaine Screen Urine NEGATIVE NEGATIVE Methamphetamines Screen Urine NEGATIVE NEGATIVE Opiate Screen Urine NEGATIVE NEGATIVE Amphetamine Screen Urine NEGATIVE NEGATIVE Benzodiazepines Screen Urine NEGATIVE NEGATIVE Tricyclic Antidepressant Urine NEGATIVE NEGATIVE Methadone Screen Urine NEGATIVE NEGATIVE Barbiturates Screen Urine NEGATIVE NEGATIVE Oxycodone Screen Urine NEGATIVE NEGATIVE Buprenorphine Screen Urine NEGATIVE NEGATIVE DRUG CLASS TEST SYSTEM CUT-OFF CONCENTRATIONS ARE FOLLOWS: AMP (Amphetamine): 500 ng/mL BAR (Barbiturates): 200 ng/mL BZO (Benzodiazepines): 150 ng/mL BUP (Buprenorphine): 10 ng/mL HALLE (Cocaine): 150 ng/mL mAMP (Methamphetamine): 500 ng/mL MTD (Methadone): 200 ng/mL OPI (Opiates): 100 ng/mL OXY (Oxycodone): 100 ng/mL PCP (Phencyclidine): 25 ng/mL THC (Cannabinoids): 50 ng/mL TCA (Trycyclic Antidepressants): 300 ng/mL Performing Lab: see note ML - [facility] LB IGP,Aptima HPV,Age Gdln Reviewed date:09/05/2024 03:58:03 PM Interpretation: Performing Lab: Notes/Report: BRUSH-SPATULA CERVIX ENDOCERVIX [facility] , Age Gdln ACOG Testing Note . TESTS RESULT FLAG UNITS REF RANGE LAB Clinician Provided Cytology Information Source.............Cervi x;Endocervix No. of containers..01 ThinPrep Vial Age Love GARRISON Adria... -12 09 FLAG LEGEND: L-Low Normal,H-High Normal,LL-Alert Low,HH-Alert High <-Panic Low,>-Panic High,A-Abnormal,AA-Criti laura Abnormal Performed at: 01 =G [facility] [address] [place] [address] Carrie Mcgovern MD, IGP, rfx Aptima HPV ASCU Note . TESTS RESULT FLAG UNITS REF RANGE LAB DIAGNOSIS: 02 NEGATIVE FOR INTRAEPITHELIAL LESION OR MALIGNANCY. Specimen adequacy: 02 Satisfactory for evaluation. Endocervical and/or squamous metaplastic cells (endocervical component) are present. Performed by: Jyoti Lee Tobacco Feeder Catcher ([facility]) . 02 Note: Note 02 The Pap [...] L-Low Normal,H-High Normal,LL-Alert Low,HH-Alert High <-Panic Low,>-Panic High,A-Abnormal,AA-Criti laura Abnormal Performed at: [address] [address] Carrie Mcgovern MD, Performed at: [address] [id number] Systems Mechanic: Carrie Mcgovern MD, Phone: [phone] Performed at: [address] [id number] Systems Mechanic: Carrie Mcgovern MD, Phone: [phone] Performing Lab: see note [facility] LB Urine Culture, Routine Reviewed date:02/07/2025 07:43:15 PM Interpretation: Performing Lab: Notes/Report: [facility] , Urine Culture, Routine See Below For Report Urine Culture, Routine Urine Culture, Routine Culture shows les s than 10,000 colony forming units of bacteria per Urine Culture, Routine Urine Culture, Routine milliliter of urine. This colony count is not generally considered Urine Culture, Routine Urine Culture, Routine to be clinically significant. Urine Culture, Routine Urine Culture, Routine Performed at: [facility] Urine Culture, Routine Urine Culture, Routine [address] [place], [place] [id number] Urine Culture, Routine Urine Culture, Routine Systems Mechanic: Jakob Jeffery PhD, Phone: [phone] Urine Culture, Routine Performing Lab: see note [facility] LB SEE REPORT - Production Sampler Id information not found for OBX-specific aerospace mechanic legend HBsAg Screen Reviewed date:02/07/2025 07:43:15 PM Interpretation: Performing Lab: Notes/Report: [facility] , HBsAg Screen Negative Negative Performed at: [address] [id number] Systems Mechanic: Jakob Jeffery PhD, Phone: [phone] Performing Lab: see note - [facility] LB Rapid Plasma Reagin, Quant Reviewed date:02/07/2025 07:43:15 PM Interpretation: Performing Lab: Notes/Report: [facility] , Rapid Plasma Reagin, Quant Non Reactive NonRea<1:1 titer Please Note: This test does not meet current guidelines for screening and diagnosis of syphilis. This test is intended for following treatment response in patients being treated for syphilis infection. To screen for syphilis infection, a reflex cascade that includes both RPR and a treponema-specific assay should be utilized, such as Treponema pallidum (Syphilis) Screening Mason (446683) or Rapid Plasma Reagin (RPR) Test With Reflex to Quantitative RPR and Confirmatory Treponema pallidum Antibodies (455283). Performed at: [address] [id number] Systems Mechanic: Jakob Jeffery PhD, Phone: [phone] Performing Lab: see note - [facility] LB Type and Screen Reviewed date:02/06/2025 09:44:09 PM Interpretation: Performing Lab: Notes/Report: [facility] , Blood Type A Positive Antibody Screen NEGATIVE Reason For Referral No Information Encounters Encounter Location Date Provider Diagnosis [facility] [address] [place] [address] 01/27/2025 Ludwin Byrd Plan Of Treatment No Information Insurance Providers Payer Name Payer Address Payer Phone Subscriber Number Group Number Insured Name Patient Relationship to Insured Coverage Start Date Coverage End Date [employer] [address] [address] [place] [address] [id number] Verónica Cano Self - patient is the insured
--- OUTSIDE RECORDS SUMMARY | 2025-02-25 08:19 | XMS_ITS | Encounter Summary ---
Author Organization [facility] Address [address] [facility] [place] [address] Care Team Providers Care Tube Winder Hand Name Role Phone Marcello Byrd MD Primary Care Provider [phone] Encounter Details Date Type Department Care Team (Late Contact Info) Description 02/07/2024 Abstract [facility] [address] [place] [id number] Arcadio Miranda DO [facility] [address] [place], [facility] Social History Tobacco Use Types Packs/Day [...] Description 03/20/2025 3:10 PM EDT Routine [facility] [address] [place] [phone] Arcadio Miranda DO [address] [place] [address] [place] [address] 09/03/2025 9:00 AM EST Office Visit [facility] [address] [facility] [place] [address] Arcadio Miranda DO [address] [facility] [address] [place], [place] [address] documented as of this encounter Visit Diagnoses Not on filedocumented in this encounter Care Teams Tube Winder Hand Relationship Specialty Start Date End Date Marcello Byrd MD [address] [facility] [place] [address] PCP - General Family Medicine 05/20/23 documented as of this encounter
--- OUTSIDE RECORDS SUMMARY | 2025-02-25 08:19 | XMS_ITS | Encounter Summary ---
Author Organization [facility] Address [address] [facility] [place] [address] Care Team Providers Care Stretcher Leveler Operator Helper Name Role Phone Marcello Byrd MD Primary Care Provider [phone] Encounter Details Date Type Department Care Team (Latest Contact Info) Description 02/13/2025 Travel Social History Tobacco Use Types Packs/Day [...] Description 03/20/2025 3:10 PM EDT Routine [facility] [address] [place] [address] Arcadio Miranda, DO [address] [place] [address] 09/03/2025 9:00 AM EST Office Visit [facility] [address] [place] [address] Arcadio Miranda, DO [address] [place] [address] documented as of this encounter Visit Diagnoses Not on filedocumented in this encounter Care Teams Stretcher Leveler Operator Helper Relationship Specialty Start Date End Date Marcello Byrd MD [address] [place] [address] PCP - General Family Medicine 05/20/23 documented as of this encounter
--- OUTSIDE RECORDS SUMMARY | 2025-02-25 08:19 | XMS_ITS | Encounter Summary ---
Author Organization [facility] Address [address] [facility] [place] [address] Care Team Providers Care Manager Dialysis Name Role Phone Marcello Byrd MD Primary Care Provider [phone] Encounter Details Date Type Department Care Team (Late st Contact Info) Description 12/21/2023 Abstract [facility] [address] [place] [address] Arcadio Miranda DO [address] [place], [facility] Social History Tobacco Use Types Packs/Day [...] Description 03/20/2025 3:10 PM EDT Routine [facility] [address] [place] [address] Arcadio Miranda DO [address] [place], [place] [id number] 09/03/2025 9:00 AM EST Office Visit [facility] [address] [place] [address] Arcadio Miranda, [address] [place] [address] documented as of this encounter Visit Diagnoses Not on filedocumented in this encounter Care Teams Manager Dialysis Relationship Specialty Start Date End Date Marcello Byrd MD [address] [facility] [place] [address] PCP - General Family Medicine 05/20/23 documented as of this encounter
--- OUTSIDE RECORDS SUMMARY | 2025-02-25 08:19 | XMS_ITS | Encounter Summary ---
Author Organization [facility] Address [address] [facility] [place] [address] Care Team Providers Care Kick Boxer Name Role Phone Marcello Byrd MD Primary Care Provider [phone] Encounter Details Date Type Department Care Team (Late st Contact Info) Description 09/11/2024 Orders Only [facility] [address] [facility] [place] [place] [address] Kati Estrada LPN [address] [place] [address] Social History Tobacco Use Types Packs/Day Years [...] Description 03/20/2025 3:10 PM EDT Routine [facility] [address] [facility] [place] [place] [address] Arcadio Miranda DO [address] [place] [address] Dr [address] [place], [place] [address] 09/03/2025 9:00 AM EST Office Visit [facility] [address] [facility] [place] [address] Arcadio Miranda DO [address] [place] [address] [address] [place], [place] [phone] documented as of this encounter Procedures Procedure Name Priority Date/Time Associated Diagnosis Comments PAP SMEAR Routine 08/27/2024 12:00 AM EST documented in this encounter Results * Pap Smear (08/27/2024 12:00 AM EST) Swab Cervical swab / Unknown us Arcadio Miranda DO LAB CYTOLOGY ORDERABLES Final Re sult EXTERNAL LAB documented in this encounter Visit Diagnoses Not on filedocumented in this encounter Care Teams Kick Boxer Relationship Specialty Start Date End Date Marcello Byrd MD [address] [facility] [place] [address] PCP - General Family Medicine 05/20/23 documented as of this encounter
--- OUTSIDE RECORDS SUMMARY | 2025-02-25 08:19 | XMS_ITS | Encounter Summary ---
Author Organization [facility] Address [address] [facility] [place] [address] Care Team Providers Care Senior Storage Administrator Name Role Phone Marcello Byrd MD Primary Care Provider [phone] Encounter Details Date Type Department Care Team (Late st Contact Info) Description 08/10/2023 Clinisync Result Encounter [facility] External Department Unsolicited Dionisio Miranda, DO [address] [place] [address] Social History Tobacco Use Types Packs/Day Years [...] Routine [facility] [address] [place] [phone] Dionisio Miranda, DO [address] [place] [address] 09/03/2025 9:00 AM EST Office Visit [facility] OB [address] [facility] [place] [address] Dionisio Miranda DO [address] [place] [address] [place] [address] documented as of this encounter Procedures Procedure Name Priority Date/Time Associated Diagnosis Comments US OB TRANSVAGINAL 08/10/2023 9: 17 PM EST documented in this encounter Results * US OB TRANSVAGINAL (08/10/2023 9:17 PM EST) Anatomical Region Laterality Modality Other 08/10/2023 9:17 PM EST Narrative 08/10/2023 9:20 PM EST [address] [address] Ultrasound Report Signed Patient: VERÓNICA CANO MR#: [id number] : 1995 Acct:[id number] Age/Sex: 28 / F ADM Date: 08/10/23 Loc: US Attending Dr: Dionisio Miranda D.O. Ordering Physician: Dionisio Miranda D.O. Date of Service: 08/10/23 Procedure(s): US OB transvaginal Accession Number(s): [id number] cc: Dionisio Miranda D.O.; Marcello Byrd M.D. [address] [address] Patient Name: VERÓNICA CANO MRN: [id number] date: 1995 Sex: F Assigned Patient Location: US Current Patient Location: US Accession/Order Number: [id number] Exam Date: 08/10/2023 09:04 Report Date: 08/10/2023 [...] M.D. Signed By: 08/10/232119 DD/ 16 TD/TT: Clay Molder: Procedure Note Radiology, Radiologist, - 10/19/2023 [place] [address] Ultrasound Report Signed Patient: VERÓNICA CANO GMR#: [id number] : 1995Acct:[id number] Age/Sex: 28 / FADM Date: 08/10/23 Loc: US Attending Dr: Dionisio Miranda D.O. Ordering Physician: Dionisio Miranda D.O. Date of Service: 08/10/23 Procedure(s): US OB transvaginal Accession Number(s): [id number] cc: Dionisio Miranda D.O.; Marcello Byrd M.D. [place] [address] Patient Name: VERÓNICA CANO MRN: [id number] date: 1995 Sex: F Assigned Patient Location: US Current Patient Location: US Accession/Order Number: [id number] Exam Date: 08/10/2023 09:04 Report Date: 08/10/2023 [...] Holcomb M.D. Signed By:08/10/232119 DD/ 16 TD/TT: Clay Molder: us Dionisio Ruth DO [facility] Final Result documented in this encounter Visit Diagnoses Not on filedocumented in this encounter Care Teams Senior Storage Administrator Relationship Specialty Start Date End Date Marcello Byrd MD [address] [place] [address] PCP - General Family Medicine 05/20/23 documented as of this encounter
--- OUTSIDE RECORDS SUMMARY | 2025-02-25 08:19 | XMS_ITS | Encounter Summary ---
Author Organization [facility] Address [address] [facility] [address] Care Team Providers Care Veneer Jointer Offbearer Name Role Phone Marcello Byrd MD Primary Care Provider [phone] Encounter Details Date Type Department Care Team (Late st Contact Info) Description 09/26/2023 Clinisync Result Encounter [facility] External Department Unsolicited Dionisio Miranda, DO [address] [place], [facility] Social History Tobacco Use Types Packs/Day Years [...] Routine [facility] [address] [place] [address] Dionisio Miranda DO [address], [facility] 09/03/2025 9:00 AM EST Office Visit [facility] [address] [place] [address] Dionisio Miranda, DO [address] [place] [address] [phone] (work) documented as of this encounter Procedures Procedure Name Priority Date/Time Associated Diagnosis Comments US OB PLACENTA 09/26/2023 7:10 AM EST documented in this encounter Results * US OB PLACENTA (09/26/2023 7:10 AM EST) Anatomical Region Laterality Modality Other 09/26/2023 7:10 AM EST Narrative 09/26/2023 7:12 AM EST [address] [address] Ultrasound Report Signed Patient: VERÓNICA CANO MR#: [id number] : 1995 Acct:[id number] Age/Sex: 28 / F ADM Date: 09/24/23 Loc: US Attending Dr: Dionisio Miranda D.O. Ordering Physician: Dionisio Miranda D.O. Date of Service: 09/24/23 Procedure(s): US OB placenta Accession Number(s): [id number] cc: Dionisio Miranda D.O.; Marcello Byrd M.D. [address] [address] Patient Name: VERÓNICA CANO MRN: [id number] date: 1995 Sex: F Assigned Patient Location: US Current Patient Location: Accession/Order Number: [id number] Exam Date: 09/24/2023 08:07 Report Date: 09/26/2023 [...] M.D. Signed By: 09/26/23711 DD/ 9 TD/TT: Editor Newspaper: Procedure Note Radiology, Radiologist, MD - 10/19/2023 [place] [address] Ultrasound Report Signed Patient: VERÓNICA CANO GMR#: [id number] : 1995Acct:[id number] Age/Sex: 28 / FADM Date: 09/24/23 Loc: US Attending Dr: Dionisio Miranda D.O. Ordering Physician: Dionisio Miranda D.O. Date of Service: 09/24/23 Procedure(s): US OB placenta Accession Number(s): [id number] cc: Dionisio Miranda D.O.; Marcello Byrd M.D. The [place] [id number] Patient Name: VERÓNICA CANO MRN: [id number] date: 1995 Sex: F Assigned Patient Location: US Current Patient Location: Accession/Order Number: [id number] Exam Date: 09/24/2023 08:07 Report Date: 09/26/2023 [...] Lopez M.D. Signed By:09/26/23711 DD/ 9 TD/TT: Editor Newspaper: us Dionisio Ruth DO [facility] Final Result documented in this encounter Visit Diagnoses Not on filedocumented in this encounter Care Teams Veneer Jointer Offbearer Relationship Specialty Start Date End Date Marcello Byrd MD [address] [place] [address] PCP - General Family Medicine 05/20/23 documented as of this encounter
--- OUTSIDE RECORDS SUMMARY | 2025-02-25 08:19 | XMS_ITS | Encounter Summary ---
Author Organization [facility] Address [address] [facility] [place] [address] Care Team Providers Care Applied Computer Science Professor Name Role Phone Marcello Byrd MD Primary Care Provider [phone] Encounter Details Date Type Department Care Team (Late st Contact Info) Description 08/10/2023 Clinisync Result Encounter [facility] External Department Unsolicited Dionisio Mirnada, DO [address] [place] [address] Social History Tobacco Use Types Packs/Day Years [...] Routine [facility] [address] [place] [phone] Dionisio Miranda, DO [address] [place] [address] 09/03/2025 9:00 AM EST Office Visit [facility] OB [address] [place] [address] [place] [address] Dionisio Miranda DO [address] [facility] [place] [address] documented as of this encounter Procedures Procedure Name Priority Date/Time Associated Diagnosis Comments US OB ANATOMY 08/10/2023 9:17 PM EST documented in this encounter Results * US OB ANATOMY (08/10/2023 9:17 PM EST) Anatomical Region Laterality Modality Other 08/10/2023 9:17 PM EST Narrative 08/10/2023 9:20 PM EST [address] [address] Ultrasound Report Signed Patient: VERÓNICA CANO MR#: [id number] : 1995 Acct:[id number] Age/Sex: 28 / F ADM Date: 08/10/23 Loc: US Attending Dr: Dionisio Miranda D.O. Ordering Physician: Dionisio Miranda D.O. Date of Service: 08/10/23 Procedure(s): US OB anatomy Accession Number(s): [id number] cc: Dionisio Miranda D.O.; Marcello Byrd M.D. The [address] [address] Patient Name: VERÓNICA CANO MRN: [id number] date: 1995 Sex: F Assigned Patient Location: US Current Patient Location: US Accession/Order Number: [id number] Exam Date: 08/10/2023 09:04 Report Date: 08/10/2023 [...] M.D. Signed By: 08/10/232119 DD/ 16 TD/TT: Logistics Administrator: Procedure Note Radiology, Radiologist, - 08/10/2023 [place] [address] Ultrasound Report Signed Patient: VERÓNICA CANO GMR#: [id number] : 1995Acct:[id number] Age/Sex: 28 / FADM Date: 08/10/23 Loc: US Attending Dr: Dionisio Miranda D.O. Ordering Physician: Dionisio Miranda D.O. Date of Service: 08/10/23 Procedure(s): US OB anatomy Accession Number(s): [id number] cc: Dionisio Miranda D.O.; Marcello Byrd M.D. [place] [address] Patient Name: VERÓNICA CANO MRN: [facility]:[id number] date: 1995 Sex: F Assigned Patient Location: US Current Patient Location: US Accession/Order Number: [id number] Exam Date: 08/10/2023 09:04 Report Date: 08/10/2023 [...] Holcomb M.D. Signed By:08/10/232119 DD/ 16 TD/TT: Logistics Administrator: us Dionisio Ruth DO [facility] Final Result documented in this encounter Visit Diagnoses Not on filedocumented in this encounter Care Teams Applied Computer Science Professor Relationship Specialty Start Date End Date Marcello Byrd MD [address] [place] [address] PCP - General Family Medicine 05/20/23 documented as of this encounter
--- OUTSIDE RECORDS SUMMARY | 2025-02-25 08:19 | XMS_ITS | Encounter Summary ---
Author Organization [facility] Address [address] [facility] [place] [address] Care Team Providers Care Assistant Professor Of Physics Name Role Phone Marcello Byrd MD Primary Care Provider [phone] Encounter Details Date Type Department Care Team (Late st Contact Info) Description 09/10/2023 Clinisync Result Encounter [facility] External Department Unsolicited Dionisio Miranda, DO [address], [facility] Social History Tobacco Use Types Packs/Day Years [...] Routine [facility] BCP OB [address] [place] [address] Dionisio Miranda DO [address], [facility] 09/03/2025 9:00 AM EST Office Visit [facility] OB [address] [place] [address] Dionisio Miranda, DO [address] [place] [address] [phone] (work) documented as of this encounter Procedures Procedure Name Priority Date/Time Associated Diagnosis Comments US OB PLACENTA 09/10/2023 10:35 AM EST GLUCOSE 1 HOUR Routine 09/10/2023 9:00 AM EST documented in this encounter Results * US OB PLACENTA (09/10/2023 10:35 AM EST) Anatomical Region Laterality Modality Other 09/10/2023 10:3 5 AM EST Narrative 09/10/2023 10:38 AM EST [place] [id number] Ultrasound Report Signed Patient: VERÓNICA CANO MR#: [id number] : 1995 Acct:[id number] Age/Sex: 28 / F ADM Date: 09/10/23 Loc: LAB Attending Dr: Yoli Tan Ordering Physician: Dionisio Miranda D.O. Date of Service: 09/10/23 Procedure(s): US OB placenta Accession Number(s): [id number] cc: Dionisio Miranda D.O.; Marcello Byrd M.D. [address] [address] Patient Name: VERÓNICA CANO MRN: [id number] date: 1995 Sex: F Assigned Patient Location: LAB Current Patient Location: LAB Accession/Order Number: [id number] Exam Date: 09/10/2023 09:25 Report Date: 09/10/2023 [...] Signed By: 09/10/23 1038 DD/ 1035 TD/TT: Aeronautical Design Engineer: Procedure Note Radiology, Radiologist, MD - 09/10/2023 [place] [address] Ultrasound Report Signed Patient: VERÓNICA CANO GMR#: [id number] : 1995Acct:[id number] Age/Sex: 28 FADM Date: 09/10/23 Loc: LAB Attending Dr: Yoli Tan Ordering Physician: Dionisio Miranda D.O. Date of Service: 09/10/23 Procedure(s): US OB placenta Accession Number(s): [id number] cc: Dionisio Miranda D.O.; Marcello Byrd M.D. The [place] [id number] Patient Name: VERÓNICA CANO MRN: [id number] date: 1995 Sex: F Assigned Patient Location: LAB Current Patient Location: LAB Accession/Order Number: [id number] Exam Date: 09/10/2023 09:25 Report Date: 09/10/2023 [...] M.D. Signed By:09/10/23 1038 DD/ 1035 TD/TT: Aeronautical Design Engineer: us Dionisio Miranda DO [facility] Final Result * GLUCOSE 1 HOUR (09/10/2023 9:00 AM EST) GLUCOSE 1 HOUR 122 mg/dL [facility] 09/10/2023 9:00 AM EST 09/10/2023 9:00 AM EST Narrative [facility] - 09/10/2023 4:27 PM EST us Yoli REYES LAB BLOOD ORDERABLES Final Resul t [facility] documented in this encounter Visit Diagnoses Not on filedocumented in this encounter Care Teams Assistant Professor Of Physics Relationship Specialty Start Date End Date Marcello Byrd MD [address] [place] [address] PCP - General Family Medicine 05/20/23 documented as of this encounter
--- OUTSIDE RECORDS SUMMARY | 2025-02-25 08:19 | XMS_ITS | Encounter Summary ---
Author Organization [facility] Address [address] [facility] [place] [address] Care Team Providers Care Dietary Aid Name Role Phone Marcello Byrd MD Primary Care Provider [phone] Encounter Details Date Type Department Care Team (Late st Contact Info) Description 05/21/2023 Clinisync Result Encounter [facility] External Department Unsolicited Dionisio Miranda, DO [address], [facility] Social History Tobacco Use Types Packs/Day Years [...] Routine [facility] B[facility] OB [address] [place] [phone] Dionisio Miranda, [address] [place] [address] 09/03/2025 9:00 AM EST Office Visit [facility] OB [address] [facility] [phone] Dionisio Miranda DO [address] [place] [address] [place] [address] documented as of this encounter Procedures Procedure Name Priority Date/Time Associated Diagnosis Comments US OB TRANSVAGINAL 05/21/2023 10 :03 PM EDT documented in this encounter Results * US OB TRANSVAGINAL (05/21/2023 10:03 PM EDT) Anatomical Region Laterality Modality Other 05/21/2023 10:0 3 PM EDT Narrative 05/21/2023 10:03 PM EDT [address] [address] Ultrasound Report Signed Patient: VERÓNICA CANO MR#: [id number] : 1995 Acct:[id number] Age/Sex: 28 / F ADM Date: 05/20/23 Loc: US Attending Dr: Dionisio Miranda D.O. Ordering Physician: Dionisio Miranda D.O. Date of Service: 05/20/23 Procedure(s): US OB transvaginal Accession Number(s): [id number] cc: Dionisio Miranda D.O.; Marcello Byrd M.D. [address] [address] Patient Name: VERÓNICA CANO MRN: [id number] date: 1995 Sex: F Assigned Patient Location: US Current Patient Location: Accession/Order Number: [id number] Exam Date: 05/20/2023 09:24 Report Date: 05/21/2023 [...] M.D. Signed By: 05/21/232204 DD/ 02 TD/TT: Wood Flour Miller: Procedure Note Radiology, Radiologist, MD - 05/21/2023 [place] [address] Ultrasound Report Signed Patient: VERÓNICA CANO GMR#: [id number] : 1995Acct:[id number] Age/Sex: 28 / FADM Date: 05/20/23 Loc: US Attending Dr: Dionisio Miranda D.O. Ordering Physician: Dionisio Miranda D.O. Date of Service: 05/20/23 Procedure(s): US OB transvaginal Accession Number(s): [id number] cc: Dionisio Miranda D.O.; Marcello Byrd M.D. The [place] [id number] Patient Name: VERÓNICA CANO MRN: [id number] date: 1995 Sex: F Assigned Patient Location: US Current Patient Location: Accession/Order Number: [id number] Exam Date: 05/20/2023 09:24 Report Date: 05/21/2023 [...] Holcomb M.D. Signed By:05/21/232204 DD/ 02 TD/TT: Wood Flour Miller: us Dionisio Miranda DO [facility] Final Result documented in this encounter Visit Diagnoses Not on filedocumented in this encounter Care Teams Dietary Aid Relationship Specialty Start Date End Date Marcello Byrd MD [address] [place] [address] PCP - General Family Medicine 05/20/23 documented as of this encounter
--- OUTSIDE RECORDS SUMMARY | 2025-02-25 08:32 | XMS_ITS | CCD ---
Author Organization [facility] Care Team Providers Care Head Piece Assembler Name Role Phone RUTH, DR NICHOLE Consulting [...] Unavailable ZIEBER, DR ORQUIDEA Marie Consulting Unavailable RIEGELSVILLE, DR JESSENIA Cote Consulting Unavailable REQUEST, NONE [...] REQUEST, DR NONE LISTED Primary Care Unavaila kendrick AREVALO, DR HOWARD Consulting Unavailable MICKEY, DR HOWARD Attending Unavailable MICKEY, DR HOWARD Admitting Unavailable ZIEBER, DR ORQUIDEA Marie Consulting Unavailable REQUEST, DR NONE LISTED Primary Care Unavaila kendrick MIRANDA, DR NICHOLE Consulting Unavailable [...] Admitting Unavailable RUTH, DR NICHOLE Consulting Unavailable Marcello Byrd MD Primary Care Provider [phone] Marcello Byrd MD Primary Care Provider [phone] DIONISIO MIRANDA Attending Unavailable RUTH, DIONISIO Attending Unavailable Medications Current Medications Medication Drug Class(es) Dates Sig (Normalized) Sig (Original) Magnesium (2 sources) Start: 08-23-2023 End: 08-22-2024 take 2 tablets by mouth in the morning magnesium 200 MG tablet Indications: Cluster headache, not intractable, unspecified chronicity pattern Take 2 tablets (400 mg) by mouth in the morning. 60 tablet 11 08/23/2023 08/22/2024 Active Magnesium Oxide (5 sources) magnesium oxide (Mag-Ox) 400 mg tablet 400 mg Daily Active Vit-Fe Fumarate-FA ( VITAMIN PO) (5 sources) Vit-Fe Fumarate-FA ( VITAMIN PO) Take by mouth Active Completed/Discontinued Medications Medication Drug Class(es) Dates Sig (Normalized) Sig (Original) drospirenone 4 mg oral tablet (4 sources) Progestin Start: 08-30-2024 End: 01-23-2025 take 1 tablet by mouth once daily Drospirenone (Slynd) 4 MG tablet Indications: Menorrhagia with irregular cycle Take 1 tablet by mouth Daily 84 tablet 3 08/30/2024 01/23/2025 Discontinued (Therapy completed) norethindrone 0.35 mg oral tablet (5 sources) Start: 02-06-2024 End: 02-05-2025 take 1 tablet by mouth once daily norethindrone (Micronor) 0.35 MG tablet Indications: Uses control Take 1 tablet (0.35 mg) by mouth Daily 28 tablet 11 02/06/2024 01/23/2025 Discontinued (Therapy completed) Vit w/Ap-Qziwctnrd-EW (PNV PO) (5 sources) End: 08-30-2024 take 1 tablet by mouth in the morning Vit w/Hq-Nsyiihlpo-XV (PNV PO) Take 1 tablet by mouth in the morning. 08/30/2024 Discontinued (Other) take 1 tablet by mouth in the mo rning Vit w/Qr-Saqravhyj-QP (PNV PO) Take 1 tablet by mouth in the morning. Active take 1 tablet by mouth in the mo rning Vit w/Ke-Umkxxafsi-HC (PNV PO) Take 1 tablet by mouth in the morning. 0 Active Problems Active Problems Problem Classification Problem Date Documented Date Episodic/Chronic Immunizations and screening for infectious disease (5 sources) Encounter for screening for human papillomavirus (HPV); Translations: [Contact with and (suspected) exposure to infections with a predominantly sexual mode of transmission] Onset: 07-04-2021 Episodic Menstrual disorders (8 sources) Irregular menstruation, unspecified; Translations: [Menometrorrhagia] Onset: 07-02-2021 Chronic Other complications of (2 sources) Anomaly of placenta; Translations: [Malformation of placenta, unspecified, second trimester] 09-20-2023 Episodic Other and delivery including normal (11 sources) Encounter for routine follow-up; Translations: [Single live ] Onset: 02-08-2022 Episodic Other screening for suspected conditions (not mental disorders or infectious disease) (20 sources) Encounter for screening for malignant neoplasm of cervix; Translations: [Encounter for screening for Streptococcus B] Onset: 07-14-2021 Episodic Residual codes; unclassified (2 sources) Gestation period, 12 weeks; Translations: [12 weeks gestation of ] 02-20-2025 Episodic Unclassified (4 sources) CONTACT W/AND (SUSP) [...] Range Facility Urinalysis macro (dipstick) panel (U)on 02-20-2025 Bilirubin, UA Negative Negative - 4(70) +++ mg/dL [facility] Blood, UA Negative Negative - 50 Zeus/mcL [facility] Clarity, UA Clear [facility] Color, UA Yellow [facility] Glucose, UA Negative Negative - 1999(110) ++++ mg/dL [facility] Interpretation and review of laboratory results Normal [facility] Ketones, UA Negative Negative - 160(16) ++++ mg/dL [facility] Leukocytes, UA Negative Negative - 500+++ Jing/mcL [facility] Nitrite, UA Negative Negative - Positive [facility] pH, UA 6 5 - 9 [facility] Protein, UA Negative Negative - 1999(20) ++++ mg/dL [facility] Spec Grav, UA 1.02 1 - 1.03 [facility] Urobilinogen, UA 0.2 0.2 - 12 mg/dL [facility] ALL CBC WITH AUTO DIFFon BASOPHILS ABSOLUTE AUTO 0 [facility] Basophils/100 WBC (Bld) 0.4 % 0.2 - 2.0 % [facility] Eosinophils/100 WBC (Bld) 0.9 % 0.9 - 7.0 % [facility] Erythrocyte distribution width (RBC) [Ratio] 13.5 % 11.0 - 15.0 % [facility] Hematocrit (Bld) [Volume fraction] 36.8 % 36.0 - 48.0 % [facility] Hemoglobin (Bld) [Mass/Vol] 12.4 g/dL 12.0 - 16.0 g/dL [facility] IMMATURE GRANULOCYTES ABS AUTO 0.04 High [facility] Immature granulocytes/100 WBC (Bld) 0.4 % 0.0 - 0.5 % [facility] Interpretation and review of laboratory results Abnormal [facility] LYMPHOCYTES ABSOLUTE AUTO 2.1 [facility] Lymphocytes/100 WBC (Bld) 18.5 % Low 20.5 - 60.0 % [facility] MCH (RBC) [Entitic mass] 30.2 pg 26.7 - 34.0 pg [facility] MCHC (RBC) [Mass/Vol] 33.7 g/dL 29.9 - 35.2 g/dL [facility] MCV (RBC) [Entitic vol] 89.8 fL 81.0 - 99.0 fL [facility] MONOCYTES ABSOLUTE AUTO 0.7 [facility] Monocytes/100 WBC (Bld) 6.2 % 1.7 - 12.0 % [facility] NEUTROPHILS ABSOLUTE AUTO 8.3 High [facility] Neutrophils/100 WBC (Bld) 73.6 % 43.0 - 75.0 % [facility] Platelet mean volume (Bld) [Entitic vol] 9.7 fL 9.5 - 13.5 fL [facility] EO # 0.1 [facility] PLT 273 [facility] RBC 4.1 Low [facility] WBC 11.3 High [facility] HCG ( test) Ql (U)o n 01-31-2025 Interpretation and review of laboratory results Abnormal [facility] Preg Test, Ur Positive Negative [facility] US OB TRANSVAGINALon 025 US OB TRANSVAGINAL EXAM: US OB TRANSVAG INAL HISTORY: Dating. COMPARISON: None available. TECHNIQUE: Two-dimensional [...] II, MD, PHD at 01-Feb-2025 06:15:38 AM [facility] Normal Not Available Comment on above: Order Comment: US OB TRANSVAGINAL No LMP recorded. Urinalysis macro (dipstick) panel (U)on 01-31-2025 Bilirubin, UA Negative Negative - 4(70) +++ mg/dL [facility] Blood, UA Positive Negative - 50 Zeus/mcL [facility] Comment on above: Large Clarity, UA Clear [facility] Color, UA Yellow [facility] Glucose, UA Negative Negative - 2000(110) ++++ mg/dL [facility] Interpretation and review of laboratory results Abnormal [facility] Ketones, UA Positive Negative - 160(16) ++++ mg/dL [facility] Comment on above: Trace Leukocytes, UA Trace Negative - 500+++ Jing/mcL [facility] Nitrite, UA Negative Negative - Positive [facility] pH, UA 7.5 5 - 9 [facility] Protein, UA Negative Negative - 2000(20) ++++ mg/dL [facility] Spec Grav, UA 1.02 1 - 1.03 [facility] Urobilinogen, UA 0.2 0.2 - 12 mg/dL [facility] IGP,APTIMA HPV,AGE GDLNon AGE GDLN ACOG TESTING Note . [facility] Comment on above: TESTS RESULT FLAG UN ITS REF RANGE LAB Clinician Provided Cytology Information Source.............Cervix;Endocervix No. of containers..01 ThinPrep Vial Age Algo ACOG Daria... FLAG LEGEND: L-Low Normal,H-High Normal,LL-Alert Low,HH-Alert High <-Panic Low,>-Panic High,A-Abnormal,AA-Critical Abnormal Performed at: 01 [facility] [place] [address] Carrie Mcgovern MD, IGP, RFX APTIMA HPV ASCU Note . [facility] Comment on above: TESTS RESULT FLAG UN ITS REF RANGE LAB DIAGNOSIS: 02 NEGATIVE FOR INTRAEPITHELIAL LESION OR MALIGNANCY. Specimen adequacy: 02 Satisfactory for evaluation. Endocervical and/or squamous metaplastic cells (endocervical component) are present. Performed by: Jyoti Lee, Accounting Software Specialist ([facility]) . 02 Note: Note 02 The [...] <-Panic Low,>-Panic High,A-Abnormal,AA-Critical Abnormal Performed at: [address] [facility] [address] [id number] Carrie Mcgovern MD, Performed at: =G - [facility] [address] [id number] Integrity Specialist: Carrie Mcgovern MD, Phone: [phone] Performed at: - [facility] [id number] Integrity Specialist: Carrie Mcgovern MD, Phone: [phone] BRUSH-SPATULA CERVIX ENDOCERVIX [facility] Urinalysis macro (dipstick) panel (U)on 09-20-2023 Bilirubin, UA Negative Negative - 4(70) +++ mg/dL [facility] Blood, UA Negative Negative - 50 Zeus/mcL [facility] Clarity, UA Clear [facility] Color, UA Yellow [facility] Glucose, UA Negative Negative - 1999(110) ++++ mg/dL [facility] Interpretation and review of laboratory results Abnormal [facility] Ketones, UA Negative Negative - 160(16) ++++ mg/dL [facility] Leukocytes, UA Trace Negative - 500+++ Jing/mcL [facility] Nitrite, UA Negative Negative - Positive [facility] pH, UA 7.0 5 - 9 [facility] Protein, UA Negative Negative - 2000(20) ++++ mg/dL [facility] Spec Grav, UA 1.010 1 - 1.03 [facility] Urobilinogen, UA 0.2 0.2 - 12 mg/dL [facility] PAP ACOG PANEL 2: 21 to 31on 06-02-2022 . . Normal [facility] Comment on above: Performed By: #### G LU1HR #### [facility] [address] [address] [address] Joanna Chen Age Gdln ACOG Testing 21-29 Normal [facility] Comment on above: Performed By: #### G LU1HR #### [facility] [address] [address] [address] Joanna Chen DIAGNOSIS: Comment Normal [facility] Comment on above: Result Comment: NEGA TIVE FOR INTRAEPITHELIAL LESION OR MALIGNANCY. Performed By: #### G LU1HR #### [facility] [address] [address] [address] Joanna Chen Methodology: Comment Normal [facility] Comment on above: Result Comment: This liquid based ThinPrep(R) pap test was screened with the use of an image guided system. Performed By: #### G LU1HR #### [facility] [address] [address] [address] Joanna Chen Note: Comment Normal [facility] Comment on above: Result Comment: The Pap smear is a screening test designed to aid in the detection of premalignant and malignant conditions of the uterine cervix. It is not a diagnostic procedure and should not be used as the sole means of detecting cervical cancer. Both false-positive and false-negative reports do occur. . Performed By: #### G LU1HR #### [facility] [address] [place] [address] Dr. Joanna Chen Performed by: Comment Normal [facility] Comment on above: Result Comment: Serena Bassett, Accounting Software Specialist (ASCP) Performed By: #### G LU1HR #### [facility] [address] [place] [address] Dr. Joanna Chen Reflex Criteria: Comment Normal [facility] Comment on above: Result Comment: The HPV DNA reflex criteria were not met with this specimen result therefore, no HPV testing was performed. . Performed By: #### G LU1HR #### [facility] [address] [address] [address] Joanna Chen Specimen adequacy: Comment Normal [facility] Comment on above: Result Comment: Sati sfactory for evaluation. Endocervical and/or squamous metaplastic cells (endocervical component) are present. Performed By: #### G LU1HR #### [facility] [address] [place] [address] Dr. Joanna Chen CBC AUTO DIFFon 02-02-2022 BASO # 0.1 103/ul Normal 0.0-0.1 [facility] Comment on above: Performed By: #### H BSANS #### [facility] [address] [address] [address] Joanna Chen Basophils/100 WBC (Bld) 0.3 % Normal 0.2-2.0 [facility] Comment on above: Performed By: #### H BSANS #### [facility] [address] [address] [address] Joanna Chen EO # 0.1 103/ul Normal 0.0-0.7 [facility] Comment on above: Performed By: #### H BSANS #### [facility] [address] [place] [address] Dr. Joanna Chen Eosinophils/100 WBC (Bld) 0.4 % Critically low 0.9-7.0 [facility] Comment on above: Performed By: #### H BSANS #### [facility] [address] [place] [address] Dr. Joanna Chen Erythrocyte distribution width (RBC) [Ratio] 13.8 % Normal 11.0-15.0 [facility] Comment on above: Performed By: #### H BSANS #### [facility] [address] [place] [address] Dr. Joanna Chen Hematocrit (Bld) [Volume fraction] 31.7 % Critically low 36.0-48.0 [facility] Comment on above: Performed By: #### H BSANS #### [facility] [address] [place] [address] Dr. Joanna Chen Hemoglobin (Bld) [Mass/Vol] 10.0 g/dL Critically low 12.0-16.0 [facility] Comment on above: Performed By: #### H BSANS #### [facility] [address] [place] [address] Dr. Joanna Chen IG # 0.15 10e3/ul Critically high 0.00-0.03 [facility] Comment on above: Performed By: #### H BSANS #### [facility] [address] [address] [address] Joanna Chen IG % 0.9 % Critically high 0.0-0.5 [facility] Comment on above: Performed By: #### H BSANS #### [facility] [address] [place] [address] Dr. Joanna Chen LYMPH # 1.7 103/ul Normal 1.2-3.8 [facility] Comment on above: Performed By: #### H BSANS #### [facility] [address] [address] [address] Joanna Chen Lymphocytes/100 WBC (Bld) 10.5 % Critically low 20.5-60.0 [facility] Comment on above: Performed By: #### H BSANS #### [facility] [address] [place] [address] Dr. Joanna Chen MANUAL DIFF REQ NO Normal [facility] Comment on above: Performed By: #### H BSANS #### [facility] [address] [place] [address] Dr. Joanna Chen MCH (RBC) [Entitic mass] 29.2 pg Normal 26.7-34.0 [facility] Comment on above: Performed By: #### H BSANS #### [facility] [address] [place] [address] Dr. Joanna Chen MCHC (RBC) [Mass/Vol] 31.5 g/dL Normal 29.9-35.2 [facility] Comment on above: Performed By: #### H BSANS #### [facility] [address] [place] [address] Dr. Joanna Chen MCV (RBC) [Entitic vol] 92.4 fL Normal 81.0-99.0 [facility] Comment on above: Performed By: #### H BSANS #### [facility] [address] [place] [address] Dr. Joanna Chen MONO # 1.2 103/ul Critically high 0.3-0.8 [facility] Comment on above: Performed By: #### H BSANS #### [facility] [address] [address] [address] Joanna Chen Monocytes/100 WBC (Bld) 7.2 % Normal 1.7-12.0 [facility] Comment on above: Performed By: #### H BSANS #### [facility] [address] [place] [address] Dr. Joanna Chen NEUT # 13.0 103/ul Critically high 1.4-6.5 [facility] Comment on above: Performed By: #### H BSANS #### [facility] [address] [place] [address] Dr. Joanna Chen Neutrophils/100 WBC (Bld) 80.7 % Critically high 43.0-75.0 [facility] Comment on above: Performed By: #### H BSANS #### [facility] [address] [place] [address] Dr. Joanna Chen Platelet mean volume (Bld) [Entitic vol] 10.0 fL Normal 9.5-13.5 [facility] Comment on above: Performed By: #### H BSANS #### [facility] [address] [place] [address] Dr. Joanna Chen PLT 181 103/ul Normal 150-450 [facility] Comment on above: Performed By: #### H BSANS #### [facility] [address] [place] [address] Dr. Joanna Chen RBC 3.43 106/ul Critically low 4.20-5.40 [facility] Comment on above: Performed By: #### H BSANS #### [facility] [address] [place] [address] Dr. Joanna Chen WBC 16.1 103/ul Critically high 4.0-11.0 [facility] Comment on above: Performed By: #### H BSANS #### [facility] [address] [place] [address] Dr. Joanna Chen CBC AUTO DIFFon 02-01-2022 BASO # 0.0 103/ul Normal 0.0-0.1 [facility] Comment on above: Performed By: #### G LU1HR #### [facility] [address] [place] [address] Dr. Joanna Chen Basophils/100 WBC (Bld) 0.2 % Normal 0.2-2.0 [facility] Comment on above: Performed By: #### G LU1HR #### [facility] [address] [place] [address] Dr. Joanna Chen EO # 0.0 103/ul Normal 0.0-0.7 [facility] Comment on above: Performed By: #### G LU1HR #### [facility] [address] [place] [address] Dr. Joanna Chen Eosinophils/100 WBC (Bld) 0.2 % Critically low 0.9-7.0 [facility] Comment on above: Performed By: #### G LU1HR #### [facility] [address] [place] [address] Dr. Joanna Chen Erythrocyte distribution width (RBC) [Ratio] 13.8 % Normal 11.0-15.0 [facility] Comment on above: Performed By: #### G LU1HR #### [facility] [address] [place] [address] Dr. Joanna Chen Hematocrit (Bld) [Volume fraction] 36.2 % Normal 36.0-48.0 [facility] Comment on above: Performed By: #### G LU1HR #### [facility] [address] [place] [address] Dr. Joanna Chen Hemoglobin (Bld) [Mass/Vol] 11.8 g/dL Critically low 12.0-16.0 [facility] Comment on above: Performed By: #### G LU1HR #### [facility] [address] [place] [address] Dr. Joanna Chen IG # 0.14 10e3/ul Critically high 0.00-0.03 [facility] Comment on above: Performed By: #### G LU1HR #### [facility] [address] [place] [address] Dr. Joanna Chen IG % 1.0 % Critically high 0.0-0.5 [facility] Comment on above: Performed By: #### G LU1HR #### [facility] [address] [address] [address] Joanna Chen LYMPH # 2.0 103/ul Normal 1.2-3.8 [facility] Comment on above: Performed By: #### G LU1HR #### [facility] [address] [address] [address] Joanna Chen Lymphocytes/100 WBC (Bld) 14.5 % Critically low 20.5-60.0 [facility] Comment on above: Performed By: #### G LU1HR #### [facility] [address] [address] [address] Joanna Chen MANUAL DIFF REQ NO Normal [facility] Comment on above: Performed By: #### G LU1HR #### [facility] [address] [place] [address] Dr. Joanna Chen MCH (RBC) [Entitic mass] 29.2 pg Normal 26.7-34.0 [facility] Comment on above: Performed By: #### G LU1HR #### [facility] [address] [place] [address] Dr. Joanna Chen MCHC (RBC) [Mass/Vol] 32.6 g/dL Normal 29.9-35.2 [facility] Comment on above: Performed By: #### G LU1HR #### [facility] [address] [place] [address] Dr. Joanna Chen MCV (RBC) [Entitic vol] 89.6 fL Normal 81.0-99.0 [facility] Comment on above: Performed By: #### G LU1HR #### [facility] [address] [address] [address] Joanna Chen MONO # 1.0 103/ul Critically high 0.3-0.8 [facility] Comment on above: Performed By: #### G LU1HR #### [facility] [address] [place] [address] Dr. Joanna Chen Monocytes/100 WBC (Bld) 7.2 % Normal 1.7-12.0 [facility] Comment on above: Performed By: #### G LU1HR #### [facility] [address] [address] [address] Joanna Chen NEUT # 10.6 103/ul Critically high 1.4-6.5 [facility] Comment on above: Performed By: #### G LU1HR #### [facility] [address] [address] [address] Joanna Chen Neutrophils/100 WBC (Bld) 76.9 % Critically high 43.0-75.0 [facility] Comment on above: Performed By: #### G LU1HR #### [facility] [address] [address] [address] Joanna Chen Platelet mean volume (Bld) [Entitic vol] 9.7 fL Normal 9.5-13.5 [facility] Comment on above: Performed By: #### G LU1HR #### [facility] [address] [address] [address] Joanna Chen PLT 203 103/ul Normal 150-450 [facility] Comment on above: Performed By: #### G LU1HR #### [facility] [address] [address] [address] Joanna Chen RBC 4.04 106/ul Critically low 4.20-5.40 [facility] Comment on above: Performed By: #### G LU1HR #### [facility] [address] [address] [address] Joanna Chen WBC 13.8 103/ul Critically high 4.0-11.0 [facility] Comment on above: Performed By: #### G LU1HR #### [facility] [address] [place] [address] Dr. Joanna Chen Covid-19 PCR ([facility])on 01-14 SARS-CoV-2 (COVID-19) RNA MANINDER+probe Ql (Unsp spec) Not detected Normal NOT DETECTED [facility] Comment on above: Result Comment: When diagnostic [...] for this test is supported by the [employer] Human Service's declaration [...] used). Performed By: #### G LU1HR #### [facility] [address] [place] [address] Dr. Joanna Chen DRUG SCREEN RAPID (URINE)on 02-01-2022 AMP Negative Normal NEGATIVE [facility] Comment on above: Performed By: #### H BSANS #### [facility] [address] [place] [address] Dr. Joanna Chen BAR Negative Normal NEGATIVE [facility] Comment on above: Performed By: #### H BSANS #### [facility] [address] [place] [address] Dr. Joanna Chen BUP Negative Normal NEGATIVE [facility] Comment on above: Performed By: #### H BSANS #### [facility] [address] [place] [address] Dr. Joanna Chen BZO Negative Normal NEGATIVE [facility] Comment on above: Performed By: #### H BSANS #### [facility] [address] [place] [address] Dr. Joanna Chen HALLE Negative Normal NEGATIVE [facility] Comment on above: Performed By: #### H BSANS #### [facility] [address] [place] [address] Dr. Joanna Chen CUT-OFFS SEE BELOW Normal [facility] Comment on above: Result Comment: AMP (Amphetamine): 500ng/mL, BAR (Barbituates): 200 ng/mL, BZO (Benzodiazepines): 150 ng/mL, BUP (Buprenorphine): 10 ng/mL, HALLE (Cocaine): 150 ng/mL, mAMP (Methamphetamine): 500 ng/mL, MTD (Methadone): 200 ng/mL, OPI (Opiates): 100 ng/mL, OXY (Oxycodone): 100 ng/mL, PCP (Phencyclidine): 25 ng/mL, PPX (Propoxyphene): 300 ng/mL, THC (Cannabinoids): 50 ng/mL, TCA (Trycyclic Antidepressants): 300 ng/mL Performed By: #### H BSANS #### [facility] [address] [place] [address] Dr. Joanna Chen DRUG CUT HEADER DRUG CLASS TEST SYST EM CUT-OFF CONCENTRATIONS ARE FOLLOWS: Normal [facility] Comment on above: Performed By: #### H BSANS #### [facility] [address] [place] [address] Dr. Joanna Chen mAMP Negative Normal NEGATIVE [facility] Comment on above: Performed By: #### H BSANS #### [facility] [address] [place] [address] Dr. Joanna Chen MTD Negative Normal NEGATIVE [facility] Comment on above: Performed By: #### H BSANS #### [facility] [address] [place] [address] Dr. Joanna Chen OPI Negative Normal NEGATIVE [facility] Comment on above: Performed By: #### H BSANS #### [facility] [address] [place] [address] Dr. Joanna Chen OXY Negative Normal NEGATIVE [facility] Comment on above: Performed By: #### H BSANS #### [facility] [address] [place] [address] Dr. Joanna Chen PCP Negative Normal NEGATIVE [facility] Comment on above: Performed By: #### H BSANS #### [facility] [address] [place] [address] Dr. Joanna Chen PPX Negative Normal NEGATIVE [facility] Comment on above: Performed By: #### H BSANS #### [facility] [address] [place] [address] Dr. Joanna Cehn TCA Negative Normal NEGATIVE [facility] Comment on above: Performed By: #### H BSANS #### [facility] [address] [address] [address] Joanna Chen THC Negative Normal NEGATIVE [facility] Comment on above: Performed By: #### H BSANS #### [facility] [address] [place] [address] Dr. Joanna Chen TYPE AND SCREENon 02-01-2022 TYPE AND SCREEN Negative Normal [facility] Comment on above: Performed By: #### C MP, PREGQNT #### [facility] [address] [address] [address] Joanna Chen UA (CLEAN/CATCH) INSPECTOR AIR CARRIER/MICRO I F IND.on 02-01-2022 Bilirubin Ql (U) Negative Normal NEGATIVE [facility] Comment on above: Performed By: #### U ACSIND, UMICRO #### [facility] [address] [place] [address] Dr. Joanna Chen Clarity (U) CLEAR Normal CLEAR [facility] Comment on above: Performed By: #### U ACSIND, UMICRO #### [facility] [address] [place] [address] Dr. Joanna Chen Color (U) LT. YELLOW Normal YELLOW [facility] Comment on above: Performed By: #### U ACSIND, UMICRO #### [facility] [address] [place] [address] Dr. Joanna Chen Glucose Ql (U) Negative Normal NEGATIVE [facility] Comment on above: Performed By: #### U ACSIND, UMICRO #### [facility] [address] [place] [address] Dr. Joanna Chen Hemoglobin Ql (U) Negative Normal NEGATIVE [facility] Comment on above: Performed By: #### U ACSIND, UMICRO #### [facility] [address] [place] [address] Dr. Joanna Chen Ketones Ql (U) Negative Normal NEGATIVE [facility] Comment on above: Performed By: #### U ACSIND, UMICRO #### [facility] [address] [place] [address] Dr. Joanna Chen LEUKOCYTES TRACE Abnormal NEGATIVE [facility] Comment on above: Performed By: #### U ACSMARK MOREAUICRO #### [facility] [address] [place] [address] Dr. Joanna Chen Nitrite Ql (U) Negative Normal NEGATIVE [facility] Comment on above: Performed By: #### U ACSMARK MOREAUICRO #### [facility] [address] [place] [address] Dr. Joanna Chen pH (U) 7.0 [pH] Normal 5-9 [facility] Comment on above: Performed By: #### U RAMYA OPRTILLORO #### [facility] [address] [place] [address] Dr. Joanna Chen SPEC GRAVITY 1.010 Normal 1.005-<=1.0 25 [facility] Comment on above: Performed By: #### U MARK PORTILLOICRO #### [facility] [address] [place] [address] Dr. Joanna Chen UA PROTEIN Negative Normal NEGATIVE/ TRACE [facility] Comment on above: Performed By: #### U RAMYA PORTILLORO #### [facility] [address] [place] [address] Dr. Joanna Chen UR MICRO IND INDICATED Normal [facility] Comment on above: Performed By: #### U MARK PORTILLOICRO #### [facility] [address] [place] [address] Dr. Joanna Chen Urobilinogen Qn (U) 0.2 {Frank'U}/dL Normal 0.2 - 1.0 [facility] Comment on above: Performed By: #### U MARK PORTILLOICRO #### [facility] [address] [place] [address] Dr. Joanna Chen URINE MICROSCOPIC ONLYon BACTERIA NONE SEEN Normal NONE SEEN [facility] Comment on above: Performed By: #### U ACSRAMYA MOREAURO #### [facility] [address] [place] [address] Dr. Joanna Chen Bacteria identified Cx Nom (U) NOT INDICATED Normal [facility] Comment on above: Performed By: #### U ACSIND, UMICRO #### [facility] [address] [place] [address] Dr. Joanna Chen CAST NONE SEEN Normal NONE SEEN [facility] Comment on above: Performed By: #### U ACSIND, UMICRO #### [facility] [address] [place] [address] Dr. Joanna Chen Crystals LM Nom (Urine sed) NONE SEEN Normal NONE SEEN [facility] Comment on above: Performed By: #### U ACSIND, UMICRO #### [facility] [address] [place] [address] Dr. Joanna Chen Epithelial cells LM Ql (Urine sed) FEW Abnormal NONE SEEN /RARE [facility] Comment on above: Performed By: #### U ACSIND, UMICRO #### [facility] [address] [place] [address] Dr. Joanna Chen MUCOUS NONE SEEN Normal NONE SEEN [facility] Comment on above: Performed By: #### U ACSIND, UMICRO #### [facility] [address] [place] [address] Dr. Joanna Chen RBC NONE SEEN Abnormal 0-2 [facility] Comment on above: Performed By: #### U ACSIND, UMICRO #### [facility] [address] [place] [address] Dr. Joanna Chen WBC 0-2 Abnormal NONE SEEN [facility] Comment on above: Performed By: #### U ACSIND, UMICRO #### [facility] [address] [place] [address] Dr. Joanna Chen US PREG BIOPHY W [...] by: ORQUIDEA RING Date: 2022-02-01 12:34 Normal [facility] GROUP B STREP CULTUREon S. agalactiae Ag Ql (Unsp spec) Culture Observations: NEGATIVE FOR GROUP B STREPTOCOCCUS. Normal [facility] Comment on above: Performed By: #### C MP, PREGQNT #### [facility] [address] [place] [address] Dr. Joanna Chen US PREG REEVAL ABNon [...] ORQUIDEA RING Date: 2021-12-21 16:20 Normal [facility] GLUCOSE - 1HRon 10-30-2021 Glucose [Mass/Vol] 82 mg/dL Normal 74-106 [facility] Comment on above: Performed By: #### G LU1HR #### [facility] [address] [place] [address] Dr. Joanna Chen HEMOGRAM AND PLATELon 2021 Hematocrit (Bld) [Volume fraction] 35.0 % Critically low 36.0-48.0 [facility] Comment on above: Performed By: #### H BSANS #### [facility] [address] [place] [address] Dr. Joanna Chen Hemoglobin (Bld) [Mass/Vol] 11.4 g/dL Critically low 12.0-16.0 [facility] Comment on above: Performed By: #### H BSANS #### [facility] [address] [address] [address] Joanna Chen MCH (RBC) [Entitic mass] 30.2 pg Normal 26.7-34.0 [facility] Comment on above: Performed By: #### H BSANS #### [facility] [address] [place] [address] Dr. Joanna Chen MCHC (RBC) [Mass/Vol] 32.6 g/dL Normal 29.9-35.2 [facility] Comment on above: Performed By: #### H BSANS #### [facility] [address] [place] [address] Dr. Joanna Chen MCV (RBC) [Entitic vol] 92.6 fL Normal 81.0-99.0 [facility] Comment on above: Performed By: #### H BSANS #### [facility] [address] [place] [address] Dr. Joanna Chen PLT 267 103/ul Normal 150-450 [facility] Comment on above: Performed By: #### H BSANS #### [facility] [address] [place] [address] Dr. Joanna Chen RBC 3.78 106/ul Critically low 4.20-5.40 [facility] Comment on above: Performed By: #### H BSANS #### [facility] [address] [place] [address] Dr. Joanna Chen WBC 12.0 103/ul Critically high 4.0-11.0 [facility] Comment on above: Performed By: #### H BSANS #### [facility] [address] [place] [address] Dr. Joanna Chen CHLAMYDIA/GONOCOCCUS MANINDER (SW AB/URINE/PAPon 10-21-2021 Chlamydia trachomatis, MANINDER Negative Normal Negative [facility] Comment on above: Performed By: #### G LU1HR #### [facility] [address] [place] [address] Dr. Joanna Chen Neisseria gonorrhoeae, MANINDER Negative Normal Negative [facility] Comment on above: Performed By: #### G LU1HR #### [facility] [address] [address] [address] Joanna Chen VAGINITIS/VAGINOSIS DNA PROB Cheng 10-20-2021 Earnestine species Negative Normal Negative [facility] Comment on above: Performed By: #### H BSANS #### [facility] [address] [address] [address] Joanna Chen Gardnerella vaginalis Positive Abnormal Negative [facility] Comment on above: Performed By: #### H BSANS #### [facility] [address] [address] [address] Joanna Chen Trichomonas vaginalis Negative Normal Negative [facility] Comment on above: Performed By: #### H BSANS #### [facility] [address] [address] [address] Joanna Chen US PREG INCOMPLETE ANATOMYon 10-19-2021 US PREG INCOMPLETE ANATOMY EXAMINATION: US PREG INCOMPLETE ANATOMY HISTORY: screening COMPARISON: 10/01/2021 FINDINGS: presentation: Cephalic Heart rate: 141 bpm Normal anatomy: Right ventricular outflow track, left ventricular outflow tract Other: Single cardiac focus again noted IMPRESSION: Stable single cardiac focus, nonspecific Electronically authenticated by: JESSENIA LOPEZ Date: 2021-10-19 18:33 Normal [facility] US PREG ANATOMY SINGLEon US PREG ANATOMY [...] (44% by ultrasound, 13% by expected); FL/AC: 0.434324 FL/BPD: 0.934112 HC/AC: 1.353633 GESTATIONAL AGE: Age by EDC: 20 weeks, [...] ORQUIDEA RING Date: 2021-10-01 17:16 Normal [facility] Covid-19 PCR (CVDTB)on 07-15 SARS-CoV-2 (COVID-19) RNA MANINDER+probe Ql (Unsp spec) Not detected Normal NOT DETECTED [facility] Comment on above: Result Comment: This test is not yet approved or cleared by the [place] FDA. When there are no FDA-approved or cleared tests available, and other criteria are met, FDA can make tests available under an emergency access mechanism called an Emergency Use Authorization (EUA). The EUA for this test is supported by the [employer] of Health and Human Service's (HHS's) declaration [...] SARS-CoV-2. Performed By: #### G LU1 #### [facility] [address] [place] [address] Dr. Joanna SIMON BOX TEST PT SEND OUTo n 07-27-2021 SENT TO REF LAB 07/27/2021 Normal [facility] Comment on above: Performed By: #### N BOX #### [facility] [address] [place] [address] Dr. Joanna Chen CBC AUTO DIFFon 07-15-2021 BASO # 0.0 103/ul Normal 0.0-0.1 [facility] Comment on above: Performed By: #### G LU1HR #### [facility] [address] [place] [address] Dr. Joanna Chen Basophils/100 WBC (Bld) 0.5 % Normal 0.2-2.0 [facility] Comment on above: Performed By: #### G LU1HR #### [facility] [address] [place] [address] Dr. Joanna Chen EO # 0.0 103/ul Normal 0.0-0.7 [facility] Comment on above: Performed By: #### G LU1HR #### [facility] [address] [place] [address] Dr. Joanna Chen Eosinophils/100 WBC (Bld) 0.5 % Critically low 0.9-7.0 [facility] Comment on above: Performed By: #### G LU1HR #### [facility] [address] [place] [address] Dr. Joanna Chen Erythrocyte distribution width (RBC) [Ratio] 13.3 % Normal 11.0-15.0 [facility] Comment on above: Performed By: #### G LU1HR #### [facility] [address] [place] [address] Dr. Joanna Chen Hematocrit (Bld) [Volume fraction] 39.1 % Normal 36.0-48.0 [facility] Comment on above: Performed By: #### G LU1HR #### [facility] [address] [place] [address] Dr. Joanna Chen Hemoglobin (Bld) [Mass/Vol] 13.0 g/dL Normal 12.0-16.0 [facility] Comment on above: Performed By: #### G LU1HR #### [facility] [address] [address] [address] Joanna Chen IG # 0.04 10e3/ul Critically high 0.00-0.03 [facility] Comment on above: Performed By: #### G LU1HR #### [facility] [address] [address] [address] Joanna Chen IG % 0.5 % Normal 0.0-0.5 [facility] Comment on above: Performed By: #### G LU1HR #### [facility] [address] [address] [address] Joanna Chen LYMPH # 1.8 103/ul Normal 1.2-3.8 [facility] Comment on above: Performed By: #### G LU1HR #### [facility] [address] [place] [address] Dr. Joanna Chen Lymphocytes/100 WBC (Bld) 20.9 % Normal 20.5-60.0 [facility] Comment on above: Performed By: #### G LU1HR #### [facility] [address] [address] [address] Joanna Chen MANUAL DIFF REQ NO Normal [facility] Comment on above: Performed By: #### G LU1HR #### [facility] [address] [address] [address] Joanna Chen MCH (RBC) [Entitic mass] 29.5 pg Normal 26.7-34.0 [facility] Comment on above: Performed By: #### G LU1HR #### [facility] [address] [address] [address] Joanna Chen MCHC (RBC) [Mass/Vol] 33.2 g/dL Normal 29.9-35.2 [facility] Comment on above: Performed By: #### G LU1HR #### [facility] [address] [address] [address] Joanna Chen MCV (RBC) [Entitic vol] 88.7 fL Normal 81.0-99.0 [facility] Comment on above: Performed By: #### G LU1HR #### [facility] [address] [address] [address] Joanna Chen MONO # 0.6 103/ul Normal 0.3-0.8 [facility] Comment on above: Performed By: #### G LU1HR #### [facility] [address] [place] [address] Dr. Joanna Chen Monocytes/100 WBC (Bld) 7.2 % Normal 1.7-12.0 [facility] Comment on above: Performed By: #### G LU1HR #### [facility] [address] [place] [address] Dr. Joanna Chen NEUT # 6.1 103/ul Normal 1.4-6.5 [facility] Comment on above: Performed By: #### G LU1HR #### [facility] [address] [place] [address] Dr. Joanna Chen Neutrophils/100 WBC (Bld) 70.4 % Normal 43.0-75.0 [facility] Comment on above: Performed By: #### G LU1HR #### [facility] [address] [place] [address] Dr. Joanna Chen Platelet mean volume (Bld) [Entitic vol] 9.3 fL Critically low 9.5-13.5 [facility] Comment on above: Performed By: #### G LU1HR #### [facility] [address] [place] [address] Dr. Joanna Chen PLT 241 103/ul Normal 150-450 [facility] Comment on above: Performed By: #### G LU1HR #### [facility] [address] [place] [address] Dr. Joanna Chen RBC 4.41 106/ul Normal 4.20-5.40 [facility] Comment on above: Performed By: #### G LU1HR #### [facility] [address] [place] [address] Dr. Joanna Chen WBC 8.7 103/ul Normal 4.0-11.0 [facility] Comment on above: Performed By: #### G LU1HR #### [facility] [address] [address] [address] Joanna Chen PREG QUANT HCGon 07-15-2021 HCG QUANT 63277 mIU/mL Normal [facility] Comment on above: Performed By: #### C MP, PREGQNT #### [facility] [address] [place] [address] Dr. Joanna Chen HCG RANGE SEE BELOW Normal [facility] Comment on above: Result Comment: 5-50 0-1 WEEK 40-300 1-2 WEEKS 100-1,000 2-3 WEEKS 500-6,000 3-4 WEEKS 5,000-200,000 1-2 MONTHS 10,000-100,000 2-3 MONTHS 3,000-50,000 2ND TRIMESTER 1,000-50,000 3RD TRIMESTER Performed By: #### C DARRYN, PREGQNT #### [facility] [address] [place] [address] Dr. Joanna Chen PROF 14(COMP METB)on 021 Albumin [Mass/Vol] 3.6 g/dL Normal 3.5-5.0 [facility] Comment on above: Performed By: #### C DARRYN, PREGQNT #### [facility] [address] [place] [address] Dr. Joanna Chen Albumin/Globulin [Mass ratio] 1.0 {ratio} Normal [facility] Comment on above: Performed By: #### C DARRYN, PREGQNT #### [facility] [address] [place] [address] Dr. Joanna Chen ALP [Catalytic activity/Vol] 43 U/L Normal 38-126 [facility] Comment on above: Performed By: #### C MP, PREGQNT #### [facility] [address] [place] [address] Dr. Joanna Chen ALT [Catalytic activity/Vol] 21 U/L Normal 9-52 [facility] Comment on above: Performed By: #### C MP, PREGQNT #### [facility] [address] [place] [address] Dr. Joanna Chen Anion gap [Moles/Vol] 11.5 mmol/L Normal [facility] Comment on above: Performed By: #### C MP, PREGQNT #### [facility] [address] [place] [address] Dr. Joanna Chen AST [Catalytic activity/Vol] 18 U/L Normal 14-36 [facility] Comment on above: Performed By: #### C MP, PREGQNT #### [facility] [address] [place] [address] Dr. Joanna Chen Bilirubin [Mass/Vol] 0.4 mg/dL Normal 0.2-1.3 [facility] Comment on above: Performed By: #### C MP, PREGQNT #### [facility] [address] [place] [address] Dr. Joanna Chen Calcium [Mass/Vol] 9.3 mg/dL Normal 8.4-10.2 [facility] Comment on above: Performed By: #### C MP, PREGQNT #### [facility] [address] [place] [address] Dr. Joanna Chen Chloride [Moles/Vol] 102 mmol/L Normal 98-107 [facility] Comment on above: Performed By: #### C MP, PREGQNT #### [facility] [address] [place] [address] Dr. Joanna Chen CO2 [Moles/Vol] 25.5 mmol/L Normal 22.0-30.0 [facility] Comment on above: Performed By: #### C MP, PREGQNT #### [facility] [address] [place] [address] Dr. Joanna Chen Creatinine [Mass/Vol] 0.54 mg/dL Normal 0.52-1.04 [facility] Comment on above: Performed By: #### C MP, PREGQNT #### [facility] [address] [place] [address] Dr. Joanna Chen EGFR-AF ARMENIAN >60 Normal >=60 [facility] Comment on above: Performed By: #### C MP, PREGQNT #### [facility] [address] [place] [address] Dr. Joanna Chen EGFR-NON AF ARMENIAN >60 Normal >=60 [facility] Comment on above: Performed By: #### C MP, PREGQNT #### [facility] [address] [place] [address] Dr. Joanna Chen Globulin (S) [Mass/Vol] 3.7 g/dL Normal [facility] Comment on above: Performed By: #### C MP, PREGQNT #### [facility] [address] [place] [address] Dr. Joanna Chen Glucose [Mass/Vol] 90 mg/dL Normal 74-106 [facility] Comment on above: Performed By: #### C MP, PREGQNT #### [facility] [address] [place] [address] Dr. Joanna Chen Potassium [Moles/Vol] 4.0 mmol/L Normal 3.4-5.0 [facility] Comment on above: Performed By: #### C MP, PREGQNT #### [facility] [address] [place] [address] Dr. Joanna Chen Protein [Mass/Vol] 7.3 g/dL Normal 6.1-8.2 [facility] Comment on above: Performed By: #### C MP, PREGQNT #### [facility] [address] [place] [address] Dr. Joanna Chen Sodium [Moles/Vol] 135 mmol/L Critically low 137-145 [facility] Comment on above: Performed By: #### C MP, PREGQNT #### [facility] [address] [place] [address] Dr. Joanna Chen Urea nitrogen [Mass/Vol] 8.0 mg/dL Normal 7.0-17.0 [facility] Comment on above: Performed By: #### C MP, PREGQNT #### [facility] [address] [place] [address] Dr. Joanna Chen Urea nitrogen/Creatinin e [Mass ratio] 14.8 mg/mg Normal [facility] Comment on above: Performed By: #### C MP, PREGQNT #### [facility] [address] [place] [address] Dr. Joanna Chen US PREG TVon 07-15-2021 [...] ORQUIDEA RING Date: 2021-07-15 10:52 Normal [facility] RPR QUANTon 07-06-2021 Rapid Plasma Reagin, Quant Non-Reactive Normal NonRea<1:1 [facility] Comment on above: Performed By: #### G LU1HR #### [facility] [address] [place] [address] Dr. Joanna Chen RUBELLA AB IGGon 07-06-2021 Rubella Antibodies, IgG 2.68 index Normal Immune >0.99 [facility] Comment on above: Result Comment: Non- immune <0.90 Equivocal 0.90 - 0.99 Immune >0.99 Performed By: #### C MP, PREGQNT #### [facility] [address] [place] [address] Dr. Joanna Chen HEP B SURFACE ANTIGEN SCREEN on 07-05-2021 HBsAg Screen Negative Normal Negative [facility] Comment on above: Performed By: #### H BSANS #### [facility] [address] [place] [address] Dr. Joanna Chen HEPATITIS C VIRUS AB W/ REFL EX QUANTon 07-05-2021 HCV AB <0.1 Normal 0.0-0.9 [facility] Comment on above: Performed By: #### H BSANS #### [facility] [address] [place] [address] Dr. Joanna Chen Interpretation: Comment Normal [facility] Comment on above: Result Comment: Nega tive Not infected with HCV, unless recent infection is suspected or other evidence exists to indicate HCV infection. Performed By: #### H BSANS #### [facility] [address] [place] [address] Dr. Joanna Chen HIV 1 AND 2 WITH REFLEXon HIV Screen 4th Generation wRfx Non-Reactive Normal Non Reactive [facility] Comment on above: Performed By: #### H IV12 #### [facility] [address] [place] [address] Dr. Joanna Cehn CBC AUTO DIFFon 07-04-2021 BASO # 0.1 103/ul Normal 0.0-0.1 [facility] Comment on above: Performed By: #### G LU1HR #### [facility] [address] [place] [address] Dr. Joanna Chen Basophils/100 WBC (Bld) 0.5 % Normal 0.2-2.0 [facility] Comment on above: Performed By: #### G LU1HR #### [facility] [address] [place] [address] Dr. Joanna Chen EO # 0.1 103/ul Normal 0.0-0.7 [facility] Comment on above: Performed By: #### G LU1HR #### [facility] [address] [place] [address] Dr. Joanna Chen Eosinophils/100 WBC (Bld) 0.5 % Critically low 0.9-7.0 [facility] Comment on above: Performed By: #### G LU1HR #### [facility] [address] [place] [address] Dr. Joanna Chen Erythrocyte distribution width (RBC) [Ratio] 13.0 % Normal 11.0-15.0 [facility] Comment on above: Performed By: #### G LU1HR #### [facility] [address] [place] [address] Dr. Joanna Chen Hematocrit (Bld) [Volume fraction] 39.3 % Normal 36.0-48.0 [facility] Comment on above: Performed By: #### G LU1HR #### [facility] [address] [place] [address] Dr. Joanna Chen Hemoglobin (Bld) [Mass/Vol] 12.8 g/dL Normal 12.0-16.0 [facility] Comment on above: Performed By: #### G LU1HR #### [facility] [address] [address] [address] Joanna Chen IG # 0.04 10e3/ul Critically high 0.00-0.03 [facility] Comment on above: Performed By: #### G LU1HR #### [facility] [address] [place] [address] Dr. Joanna Chen IG % 0.4 % Normal 0.0-0.5 [facility] Comment on above: Performed By: #### G LU1HR #### [facility] [address] [place] [address] Dr. Joanna Chen LYMPH # 2.6 103/ul Normal 1.2-3.8 [facility] Comment on above: Performed By: #### G LU1HR #### [facility] [address] [place] [address] Dr. Joanna Chen Lymphocytes/100 WBC (Bld) 28.1 % Normal 20.5-60.0 [facility] Comment on above: Performed By: #### G LU1HR #### [facility] [address] [place] [address] Dr. Joanna Chen MANUAL DIFF REQ NO Normal [facility] Comment on above: Performed By: #### G LU1HR #### [facility] [address] [place] [address] Dr. Joanna Chen MCH (RBC) [Entitic mass] 29.2 pg Normal 26.7-34.0 [facility] Comment on above: Performed By: #### G LU1HR #### [facility] [address] [place] [address] Dr. Joanna Chen MCHC (RBC) [Mass/Vol] 32.6 g/dL Normal 29.9-35.2 [facility] Comment on above: Performed By: #### G LU1HR #### [facility] [address] [place] [address] Dr. Joanna Chen MCV (RBC) [Entitic vol] 89.7 fL Normal 81.0-99.0 [facility] Comment on above: Performed By: #### G LU1HR #### [facility] [address] [address] [address] Joanna Chen MONO # 0.8 103/ul Normal 0.3-0.8 [facility] Comment on above: Performed By: #### G LU1HR #### [facility] [address] [place] [address] Dr. Joanna Chen Monocytes/100 WBC (Bld) 8.4 % Normal 1.7-12.0 [facility] Comment on above: Performed By: #### G LU1HR #### [facility] [address] [place] [address] Dr. Joanna Chen NEUT # 5.7 103/ul Normal 1.4-6.5 [facility] Comment on above: Performed By: #### G LU1HR #### [facility] [address] [place] [address] Dr. Joanna Chen Neutrophils/100 WBC (Bld) 62.1 % Normal 43.0-75.0 [facility] Comment on above: Performed By: #### G LU1HR #### [facility] [address] [place] [address] Dr. Joanna Chen Platelet mean volume (Bld) [Entitic vol] 9.6 fL Normal 9.5-13.5 [facility] Comment on above: Performed By: #### G LU1HR #### [facility] [address] [place] [address] Dr. Joanna Chen PLT 277 103/ul Normal 150-450 [facility] Comment on above: Performed By: #### G LU1HR #### [facility] [address] [address] [address] Joanna Chen RBC 4.38 106/ul Normal 4.20-5.40 [facility] Comment on above: Performed By: #### G LU1HR #### [facility] [address] [address] [address] Joanna Chen WBC 9.2 103/ul Normal 4.0-11.0 [facility] Comment on above: Performed By: #### G LU1HR #### [facility] [address] [place] [address] Dr. Joanna Chen CULTURE URINEon 07-04-2021 CULTURE URINE Culture Observations : NO GROWTH. Normal [facility] Comment on above: Performed By: #### U RCX #### [facility] [address] [place] [address] Dr. Joanna Chen GLYCOHEMOGLOBIN A1Con 2020 ADA RECOMMENDATION ADA THERAPEUTIC TARG ET 6.0 - 7.0 ACTION SUGGESTED > 7.0 Normal [facility] Comment on above: Performed By: #### A 1C #### [facility] [address] [place] [address] Dr. Joanna Chen Glucose [Mass/Vol] 103 mg/dL Normal [facility] Comment on above: Performed By: #### A 1C #### [facility] [address] [place] [address] Dr. Joanna Chen HbA1c (Bld) [Mass fraction] 5.2 % Normal <=6.0 [facility] Comment on above: Performed By: #### A 1C #### [facility] [address] [place] [address] Dr. Joanna Chen TYPE AND SCREENon 07-04-2021 TYPE AND SCREEN Negative Normal [facility] Comment on above: Performed By: #### C MP, PREGQNT #### [facility] [address] [place] [address] Dr. Joanna Chen US PREG TVon 07-03-2021 [...] by: JESSENIA LOPEZ Date: 2021-07-03 07:14 Normal [facility] Coding Summary.on 03-31-2020 Coding Summary. CODING DATE: [facility] STATUS: Home (Routine DC) PAYOR: [place] ADMIT DX: REASON FOR VISIT DX: Z01.812 Encounter for preprocedural laboratory examination FINAL DX: PRINCIPAL: Z01.812 Encounter for preprocedural laboratory examination SECONDARY: Z11.59 Encounter for screening for other viral diseases PYMT PROC [facility] STAT DESCRIPTION DOCTOR NAME DATE NOTE: The code number assigned matches the documented diagnosis and / or procedure in the patient's chart. However, the narrative phrase printed from the coding software may appear abbreviated, or result in slightly different terminology. Coded By: Karen Michael CphT Date Saved: 03/31/2020 10:26 am [facility] Physician Orderon 03-19-2020 Physician Order [id number]#1.00CD:127 Normal [facility] Ambulatory Clinical Summaryo n 02-05-2020 Ambulatory Clinical Summary {[id number]}CD:6143 68 Normal [facility] Coding Summary.on 02-04-2020 Coding Summary. CODING DATE: FINAL [facility] STATUS: Home (Routine DC) PAYOR: Lida APC DESCRIPTION 5301 Level 1 Upper GI Procedures ADMIT DX: REASON FOR VISIT DX: R10.13 Epigastric pain FINAL DX: PRINCIPAL: K29.70 Gastritis, unspecified, without bleeding SECONDARY: PYMT PROC [facility] STAT DESCRIPTION DOCTOR NAME DATE 33062 5301 T Teddy HERNANDEZ MD 01/25/2020 phagogastroduodenoscopy, flexible, transoral; with biopsy, single or multiple 62434 Anesthesia for upper 01/25/2020 gastrointestinal endoscopic procedures, endoscope introduced proximal to duodenum; not otherwise specified NOTE: The code number assigned matches the documented diagnosis and / or procedure in the patient's chart. However, the narrative phrase printed from the coding software may appear abbreviated, or result in slightly different terminology. Revised Coded By: Constance Means Revised Date Saved: 02/04/2020 12:33 pm Normal [facility] IntraOperative Documentson 0 01-29-2020 IntraOperative Documents [id number]#1.00CD:127 Normal [facility] Postoperative Documentson Postoperative Documents [id number]#1.00CD:127 [facility] Main OR Intraoperative Recor don 01-28-2020 Main OR Intraoperative Record IntraOp Document Type FT Summary Primary Physician: Teddy HERNANDEZ MD Finalized Date/Time: 01/28/20 09:11:27 Pt. Name: VERÓNICA RIVERS/Sex: 1995 Female Med Rec #: [id number] Physician: Teddy HERNANDEZ MD Financial #: [id number] Pt. Type: O Room/Bed: / Admit/Disch: 01/25/20 09:25:47 - 01/25/20 23:59:59 Institution: Case Times FT Entry 1 Patient Times In Room 01/25/20 10:06:00 Out Room 01/25/20 10:18:00 Procedure Times Start 01/25/20 10:09:00 Stop 01/25/20 10:15:00 Anesthesia Times Start 01/25/20 10:06:00 Stop 01/25/20 10:18:00 Last Modified By: Lorena Singleton RN 01/25/20 10:18:15 General Comments: 01/28/2020 Chart opened to review and send charges Mohit Mota P[employer]ER Case Attendance FT Entry 1 Entry 2 [...] Case Attendee Lorena Singleton RN Role Performed Professional Athlete - Primary Time In 01/25/20 10:06:00 Time [...] No Time Out SHAHZAD VALLE, Teddy Marie, Given Participants Seble BALDERAS, Rod Altamirano, Areli [...] and tissue Entry 1 Skin Integrity Intact, [place], Warm, and Skin Abnormality No Dry Outcomes [...] Comments: REPORT GIVEN TO PACU NURSE. SHARATH DUTTAhouse visitor Administration FT Pre-Care Text: Verifies allergies, administers [...] safely administered during the perioperative period For [facility] please see scanned medication reconcilliation form for medications used at the [facility] during the procedure. Cultures and Specimens FT [...] 01/25/20 10:25 Zabrina Mota CST 01/28/20 09:11 [facility] Consenton 01-25-2020 Consent [id number]:127 [facility] Consent for Treatmenton 01-13 Consent for Treatment [id number]#1.00CD:127 [facility] Discharge Instructionson Discharge Instructions [id number]#1.00CD:127 [facility] History and Physicalon 01-24 History and Physical [id number]#1.00CD:127 [facility] History and Physical Patient: VERÓNICA RIVERS Age: 24 years Sex: Female : 1995 Associated Diagnoses: None Author: Teddy HERNANDEZ MD Subjective no changes to H & P Normal [facility] Comment on above: Result Comment: Elec tronically Signed By: Teddy HERNANDEZ MD\.br\Date and Time Signed: 01/25/20 09:47 EDT Inpatient Patient Summaryon 01-25-2020 Inpatient Patient Summary [address] [address] [facility] Clinical Discharge Instructions PERSON INFORMATION Name: VERÓNICA RIVERS PHYSICIANS Admitting Physician: Teddy HERNANDEZ MD Attending Physician: Teddy HERNANDEZ MD PCP: Carson VALLE, Marcello Discharge Diagnosis: Antral gastritis Comment: PATIENT EDUCATION INFORMATION Instructions: Medication Leaflets: Follow up: With: Address: When: Teddy HERNANDEZ [address] [place] [address], [address], [place] [id number] Business (1) Within 7 to 10 days MEDICATION LIST Medications to Continue with No Changes Other Medications ethinyl estradiol-norethindrone (Nortrel oral tablet) 1 Tablets By Mouth every day. Comment: Normal [facility] IntraOperative Documentson 0 01-25-2020 IntraOperative Documents [id number]#1.00CD:127 Normal [facility] IntraOperative Documents [id number]#1.00CD:127 Normal [facility] Main OR PACU I Recordon 01-13 Main OR PACU I Record PACU Phase I Document Type FT Summary Primary Physician: Teddy HERNANDEZ MD Finalized Date/Time: 01/25/20 10:57:36 Pt. Name: TITA VERÓNICA Dent /Sex: 1995 Female Med Rec #: [id number] Physician: Teddy HERNANDEZ MD Financial #: [id number] Pt. Type: O Room/Bed: / Admit/Disch: 01/25/20 [...] Signed By: Angela Meza RN 01/25/20 10:57 [facility] Main OR Preoperative Recordo n 01-25-2020 Main OR Preoperative Record Holding Area Document Type FT Summary Primary Physician: Teddy HERNANDEZ MD Finalized Date/Time: 01/25/20 09:50:47 Pt. Name: VERÓNICA RIVERS Filipe Bee./Sex: 1995 Female Med Rec #: [id number] Physician: Teddy HERNANDEZ MD Financial #: [id number] Pt. Type: O Room/Bed: / Admit/Disch: 01/25/20 [...] By: Krystal Valdez RN 01/25/20 09:50 Normal [facility] Monitor Recordon 01-25-2020 Monitor Record [id number]#1.00CD:127 Normal [facility] Operative Reporton 0 Operative Report Date of [...] in good condition. Nima Stevens Dictated: 01/25/2020 #[id number] Typed: 01/25/2020 #[id number] cc: Nima Higginbotham M.D. [facility] Comment on above: Result Comment: Elec tronically Signed By: Teddy HERNANDEZ MD\Date and Time Signed: 01/25/20 12:21 EDT Patient Education - Texton 0 01-25-2020 Patient Education - Text [facility] Progress Note-Physicianon Progress Note-Physician Patient: VERÓNICA [...] All Problems Chronic tonsillitis / SNOMED CT 760955958 / Confirmed Abdominal pain, epigastric / SNOMED CT 490247784 / Confirmed Abdominal pain, left upper quadrant / SNOMED CT 175841188 / Confirmed Loss of appetite / SNOMED CT 762952742 / Confirmed Migraine / SNOMED CT 78141636 / Confirmed Nausea in adult / SNOMED CT 1504793097 / Confirmed Patellofemoral syndrome / SNOMED CT 4211918775 / Confirmed Raynaud's syndrome / SNOMED CT 380730660 / Confirmed, Active Problems (8) Abdominal pain, epigastric Abdominal pain, left upper quadrant Chronic tonsillitis Loss of appetite Migraine Nausea in adult Patellofemoral syndrome Raynaud's syndrome Histories Past Medical History: No active or resolved past medical history items have been selected or recorded. Family History: No family history items have been selected or recorded. Procedure history: Arthroscopy of knee ([id number]). Comments: 12/25/2019 14:10 EDT - [place] ONLINE PROGRAM COORDINATOR, Roxanne N 2015 or 2016 Social History Social & Psychosocial [...] review: No qualifying data available . Plan [place] [employer] (ASA) physical status classification: Class II. Anesthetic Preoperative Plan Anesthesia: Monitored anesthesia care and general anesthesia if required.. Anesthetic plan, risks, benefits, and alternatives discussed with the patient and/or family. Pt. and/or family present and agree to proceed as planned.. Normal [facility] Comment on above: Result Comment: Elec tronically Signed By: Manuel Lyman Jr., DO\.br\Date and Time Signed: 01/25/20 09:57 EDT Vital Signs Date Time Vital Sign Value Performing Clinician Bishop guan 02-20-2025 15:30-0400 Body mass index (BMI) [Ratio] 27.22 kg/m2 [employer] Work Phone: [facility] 02-20-2025 15:30-0400 Body weight 78.83 kg [employer] Work Phone: [facility] 02-20-2025 15:30-0400 Diastolic blood pressure 70 mm[Hg] [employer] Work Phone: [facility] 02-20-2025 15:30-0400 Systolic blood pressure 120 mm[Hg] Dionisio Ruth DO Work Phone: [facility] 01-31-2025 15:00-0400 Body height 170.2 cm [facility] Nurse [facility] 01-31-2025 14:59-0400 Body mass index (BMI) [Ratio] 26.66 kg/m2 [facility] 01-31-2025 14:59-0400 Body weight 77.22 kg [facility] Nurse [facility] 01-31-2025 14:59-0400 Diastolic blood pressure 64 mm[Hg] [facility] Nurse [facility] 01-31-2025 14:59-0400 Systolic blood pressure 122 mm[Hg] [facility] 08-30-2024 08:40-0500 Body mass index (BMI) [Ratio] 27.76 kg/m2 Dionisio Ruth DO Work Phone: [facility] 08-30-2024 08:40-0500 Body weight 78.02 kg Dionisio Ruth DO Work Phone: [facility] 08-30-2024 08:40-0500 Diastolic blood pressure 82 mm[Hg] Dionisio Ruth DO Work Phone: [facility] 08-30-2024 08:40-0500 Systolic blood pressure 120 mm[Hg] Dionisio Ruth DO Work Phone: [facility] 09-20-2023 09:51-0500 Body weight 89.41 kg Dionisio Ruth DO Work Phone: [facility] 09-20-2023 09:51-0500 Diastolic blood pressure 70 mm[Hg] Dionisio Ruth DO Work Phone: [facility] 09-20-2023 09:51-0500 Systolic blood pressure 114 mm[Hg] Dionisio Ruth DO Work Phone: [facility] Healthcare Encounters Encounter Date Encounter Type Care Provider Facility Start: 02-20-2025 End: 02-20-2025 flow sheet Dionisio Ruth DO Work Phone: [facility] Comment on above: First trimester preg nikita ([facility]); 12 weeks gestation of ([facility]) Start: 02-20-2025 End: 02-20-2025 ambulatory DIONISIO RUTH Not Available Start: 02-20-2025 End: 02-20-2025 Bamboo flowsheet Dionisio Ruth DO Work Phone: [facility] Start: 02-20-2025 End: 02-20-2025 Bamboo flowsheet Dionisio Ruth DO Work Phone: [facility] Start: 02-05-2025 End: 02-05-2025 Clinisync Result Encounter Dionisio Ruth DO Work Phone: [facility] Unsolicited Start: 02-05-2025 End: 02-05-2025 Clinisync Result Encounter Dionisio Ruth DO Work Phone: [facility] Unsolicited Start: 01-31-2025 End: 01-31-2025 Office outpatient visit 5 minutes [facility] Ruth Nurse [facility] Comment on above: GA: 9w3d Start: 01-31-2025 End: 01-31-2025 ambulatory DIONISIO RUTH Not Available Start: 08-30-2024 End: 08-30-2024 Bamboo flowsheet Dionisio Ruth DO Work Phone: [facility] Start: 08-30-2024 End: 09-05-2024 Bamboo flowsheet Dionisio Ruth DO Work Phone: [facility] Start: 08-30-2024 End: 09-05-2024 Clinisync Result Encounter Dionisio Ruth DO Work Phone: [facility] Unsolicited Start: 08-30-2024 End: 08-30-2024 ambulatory DIONISIO RUTH Not Available Start: 08-30-2024 End: 08-30-2024 Patient encounter procedure Dionisio Ruth DO Work Phone: [facility] Start: 08-30-2024 End: 08-30-2024 Periodic preventive med est patient 18-39 yrs Dionisio Ruth DO Work Phone: [facility] Comment on above: Well woman exam with routine gynecological exam; Menorrhagia with irregular cycle Start: 09-20-2023 End: 09-20-2023 flow sheet Dionisio Miranda DO Work Phone: [facility] Comment on above: Second trimester pre gnancy; Placental abnormality in second trimester Start: 05-26-2022 End: 05-26-[address] DIONISIO [...] Date Procedure Procedure Detail Performing Clinician Start: 02-20-2025 Urnls dip stick/tabl et rgnt non-auto w/o micrscp Dionisio Miranda DO Work Phone: Start: 02-05-2025 ALL CBC WITH AUTO DIFF Dionisio Miranda DO Work Phone: Start: 01-31-2025 End: 01-31-2025 Urnls dip stick/tablet rgnt non-auto w/o micrscp Dionisio Ruth DO Work Phone: Start: 08-30-2024 IGP,APTIMA HPV,AGE GDLN Dionisio Ruth DO Work Phone: Start: 09-20-2023 Urnls dip stick/tabl et rgnt non-auto w/o micrscp Dionisio Ruth DO Work Phone: Start: 02-04-2022 Introduction of [...] Visit [facility] [address] [place] [id number] Dionisio Miranda DO [address] [place] [address] [facility] Start: 03-20-2025 End: 03-20-2025 Patient encounter procedure 03/20/2025 3:10 PM EDT Routine [facility] [address] [place] [phone] Dionisio Miranda DO [address] [place] [address] [facility] Start: 02-20-2025 End: 02-20-2025 Patient encounter procedure [facility] Comment on above: Arrived Start: 01-31-2025 End: 01-31-2026 ABO/Rh ABO/Rh Lab Routine Missed menses , unspecified gestational age (HHS-HCC) Expected: 01/31/2025 (Approximate), Expires: 01/31/2026 [facility] Healthcare Comment on above: Expected: 01/31/2025 (Approximate), Expires: 01/31/2026 Start: 01-31-2025 End: 01-31-2026 Blood type and Indirect antibody screen panel - Blood Type and screen Lab Routine Missed menses , unspecified gestational age ([facility]) Expected: 01/31/2025 (Approximate), Expires: 01/31/2026 [facility] Healthcare Comment on above: Expected: 01/31/2025 (Approximate), Expires: 01/31/2026 Start: 01-31-2025 End: 01-31-2026 Drugs of abuse panel - Urine by Screen method Rapid drug screen, urine Lab Routine , unspecified gestational age ([facility]) Encounter for supervision of normal first in first trimester ([facility]) Expected: 01/31/2025 (Approximate), Expires: 01/31/2026 [facility] Healthcare Comment on above: Expected: 01/31/2025 (Approximate), Expires: 01/31/2026 Start: 01-24-2025 End: 04-26-2025 US Pelvis transvaginal US OB transvaginal Imaging Routine Missed menses Expected: 01/24/2025, Expires: 04/26/2025 [facility] Healthcare Work Phone: Comment on above: Expected: 01/24/2025 , Expires: 04/26/2025 Start: 10-08-2023 End: 09-20-2024 US for US OB PLACENTA W US OB TRANSVAGINAL Imaging Routine Placental abnormality in second trimester Expected: 10/08/2023 (Approximate), Expires: 09/20/2024 [facility] Work Phone: Comment on above: Expected: 10/08/2023 (Approximate), Expires: 09/20/2024 Start: 10-04-2023 End: 10-04-2023 Patient encounter procedure 10/04/2023 2:10 PM EST Routine [facility] [address] [place] [id number] Dionisio Miranda, [address] [place] [address] [facility] Bacteria identified in Urine by Culture Urine culture Microbiology Routine Missed menses Ordered: 01/31/2025 [facility] Comment on above: Ordered: 01/31/2025 CBC W Auto Different ial panel - Blood CBC and differential Lab Routine Missed menses , unspecified gestational age (HHS-HCC) Ordered: 01/31/2025 [facility] Comment on above: Ordered: 01/31/2025 Cytology Cervical or vaginal smear or scraping study Pap Smear Pathology and Cytology Routine Well woman exam with routine gynecological exam Ordered: 08/30/2024 [facility] Work Phone: Comment on above: Ordered: 08/30/2024 Hemoglobin A1c/Hemoglobin.total in Blood Hemoglobin A1c Lab Routine Missed menses , unspecified gestational age (HHS-HCC) Ordered: 01/31/2025 [facility] Comment on above: Ordered: 01/31/2025 Hepatitis B virus surface Ag [Presence] in Serum or Plasma by Immunoassay Hepatitis B surface antigen Lab Routine Missed menses , unspecified gestational age (HHS-HCC) Ordered: 01/31/2025 [facility] Comment on above: Ordered: 01/31/2025 Hepatitis C virus Ab [Presence] in Serum or Plasma by Immunoassay Hepatitis C antibody Lab Routine Missed menses , unspecified gestational age (HHS-HCC) Ordered: 01/31/2025 [facility] Comment on above: Ordered: 01/31/2025 HIV-1/HIV-2 antigen/antibody combination immunoassay HIV-1 and HIV-2 antibodies Lab Routine Missed menses , unspecified gestational age (HHS-HCC) Ordered: 01/31/2025 [facility] Comment on above: Ordered: 01/31/2025 Reagin Ab [Presence] in Serum by RPR RPR Lab Routine Missed menses , unspecified gestational age (HHS-HCC) Ordered: 01/31/2025 [facility] Comment on above: Ordered: 01/31/2025 Rubella antibody, IgG Rubella an tibody, IgG Lab Routine Missed menses , unspecified gestational age (HHS-HCC) Ordered: 01/31/2025 [facility] Comment on above: Ordered: 01/31/2025 US Pelvis transvaginal US OB tra nsvaginal Imaging Routine Missed menses 01/31/2025 2:30 PM EDT [facility] Payers Date Payer Category Payer Private Health Insurance [facility] [id number] .[id number] 5 2022 Unknown [facility] [id number] 2022-Present [phone] [address] [address] [place] [address] [id number] .2.7.3.401367.315 2022 Unknown [id number] 1997 Unknown [id number] 2.16.840.1.802762.3.579 .2.593 1997 Unknown [id number] 2.16.840.1.846553.3.579 .2.593 1997 Unknown [id number] 2.16.840.1.506369.3.579 .2.593 1997 Unknown [id number] 2.16.840.1.170556.3.579 .2.593 1997 Unknown [id number] 2.16.840.1.692847.3.579 .2.593 1997 Unknown [id number] 2.16.840.1.936957.3.579 .2.593 1997 Unknown [id number] 2.16.840.1.909788.3.579 .2.593 1997 Unknown [id number] 2.16.840.1.106961.3.579 .2.593 1997 Unknown [id number] 2.16.840.1.017499.3.579 .2.593 1997 Unknown [id number] 2.16.840.1.581681.3.579 .2.593 1997 Unknown [id number] 2.16.840.1.700967.3.579 .2.593 1997 Unknown [id number] 2.16.840.1.794588.3.579 .2.593 1997 Unknown [id number] 2.16.840.1.887641.3.579 .2.593 1997 Unknown [id number] 2.16.840.1.171983.3.579 .2.1259 1997 Unknown [id number] 2.16.840.1.908466.3.579 .2.1259 1997 Unknown [id number] 2.16.840.1.078427.3.579 .2.1259 1997 Unknown [id number] 2.16.840.1.113603.3.579 .2.1259 1959 Self-pay 1959 Unknown [id number] 1959 Unknown [id number] 1959 Unknown [id number] Unknown [id number] 2.16.840.1.371302.3.579 .2.593 Social History Date Type Detail Facility Tobacco smoking stat [facility] Tobacco smoking consumption unknown [facility] Start: 04-06-2023 [facility] Start: 1997 Sex Assigned At Female [facility] Start: 04-20-2023 Gender identity Identifies as female gender (finding) [facility] Start: 04-20-2023 Sexual orientation Heterosexual (fin ding) [facility] Start[facility] Start: 12-28-2023 Tobacco use and exposure Smokeless t obacco non-user [facility] Start: 02-06-2024 End: 02-20-2025 Alcoholic beverage intake Ex-drinker (finding) [facility] Start: 12-28-2023 End: 08-30-2024 History of Social function [facility] Start: 12-28-2023 End: 08-30-2024 Tobacco use panel [facility] History of Present illness Narrative 02-20-2025 Linda MyersSAÚL - 02/20/2025 3:10 PM EDT Note Date & Type Note Facility 02-20-2025 History of Presen t illness Narrative Reason [...] nursing note reviewed. Exam conducted with a [employer] intelligence officer present. Vitals: Estimated body mass index is 27.22 kg/m as calculated from the following: Height as of 01/31/25: 5' 7 . Weight as of this encounter: 173 lb 12.8 oz. BP: 120/70 Patient's last menstrual period was 11/26/2024. ASSESSMENT & PLAN ICD-10-CM 1. First trimester ([facility]) Z34.91 POCT urinalysis dipstick manually resulted 2. 12 weeks gestation of ([facility]) Z3A.12 POCT urinalysis dipstick manually resulted New [...] or undercooked meat, and stay away from [facility]. Patient has been consulted regarding any further do's and don'ts of . Patient voiced understanding and all questions and concerns were answered. Orders Placed This Encounter Procedures POCT urinalysis dipstick manually resulted Follow Up: Patient is to return in 4 weeks for routine OB appointment. Documented by Linda Myers LPN on behalf of: Yoli Tan PA-C documented in this encounter [facility] History of Present illness Narrative 01-31-2025 Fadia Calero MA - 01/31/2025 2:30 PM EDT Note Date & Type Note Facility 01-31-2025 History of Presen t illness Narrative Reason for Appointment: Patient ID: Verónica Decker is a 29 y.o. female who presents for No chief complaint on file. Patient presents today for a Nurse OB Intake appointment. Patient is 9w3d with a Estimated Date of Delivery: 09/02/25 OB History Para Term AB Living 3 2 1 1 SAB IAB Ectopic Multiple Live Births 1 # Outcome Date GA Lbr Trace/2nd Weight Sex Type Anes PTL Lv 3 Current 2 Term 12/21/23 39w0d 7 lb 6 oz F CS-LTranv THELMA 1 Para Current Medications: currently has no medications in their medication list. Medical History: Active Ambulatory Problems Diagnosis Date Noted No Active Ambulatory Problems Resolved Ambulatory Problems Diagnosis Date Noted No Resolved Ambulatory Problems No Additional Past Medical History No family history on file. Social History Tobacco Use Smoking status: Never Smokeless tobacco: Never Substance Use Topics Alcohol use: Not Currently Drug use: Never Past Surgical History: Procedure Laterality Date SECTION, LOW TRANSVERSE 02/01/2022 SECTION, LOW TRANSVERSE 12/21/2023 KNEE SURGERY No Known Allergies Vitals: Estimated body mass index is 27.76 kg/m as calculated from the following: Height as of 12/28/23: 5' 6 . Weight as of 08/30/24: 172 lb. BP: Patient's last menstrual period was 11/26/2024. Assessment/Plan Diagnoses and all orders for this visit: Missed menses - US OB transvaginal; Future - Type and screen; Future - ABO/Rh; Future - CBC and differential - Hemoglobin A1c - RPR - Rubella antibody, IgG - Hepatitis B surface antigen - Hepatitis C antibody - HIV-1 and HIV-2 antibodies - Urine culture - POCT , urine manually resulted - POCT urinalysis dipstick manually resulted , unspecified gestational age ([facility]) - Type and screen; Future - ABO/Rh; Future - CBC and differential - Hemoglobin A1c - RPR - Rubella antibody, IgG - Hepatitis B surface antigen - Hepatitis C antibody - HIV-1 and HIV-2 antibodies - Rapid drug screen, urine; Future Encounter for supervision of normal first in first trimester ([facility]) - Rapid drug screen, urine; Future Nurse Note: Follow Up: Patient is to have labs drawn at directed and return to office for initial OB appointment with provider. Patient may call office as needed with any concerns or questions. Nurse Visit Completed by: Fadia Calero MA documented in this encounter [facility] History [...] nursing note reviewed. Exam conducted with a [employer] intelligence officer present. Vitals: Estimated body mass index is [...] complaints of heavy cycles. Sent Slynd to [facility] to be mailed to patient & [...] includes the following prescription(s): magnesium and vit [id number]-[id number]-fi. Medical History: Active Ambulatory Problems Diagnosis Date [...] nursing note reviewed. Exam conducted with a [employer] intelligence officer present. Vitals: There is no height or [...] Dionisio Miranda DO documented in this encounter [facility] Clinical Note 02-01-2022 Note Date & Type Note Facility 02-01-2022 Note [facility] [place], [place] NAME: DECKER VERÓNICA Filipe DATE OF : MEDICAL REC#: [id number] CONNECTION WORKER: 160ISMAEL RUBALCAVA ADMIT DATE: 02/01/2022 07:59:00 VIDEO GAME ENGINEER DATE: 02/02/2022 22:13 DICTATING PHYSICIAN: DIONISIO MIRANDA [...] Spinal with Duramorph. SURGEON: Dionisio Miranda D.O. ITALIAN LECTURER: THERESE Abbasi URINE OUTPUT: Yellow and clear. [...] by: DR DIONISIO MIRANDA . 02/04/2022 10:17:00 [facility] Discharge summary note 02-01-2022 Note Date [...] by: DR DIONISIO MIRANDA . 02/07/2022 10:46:00 [facility] Evaluation note Note Date & Type Note Facility Evaluation note Diagnosis Second trimester state, incidental Placental abnormality in second trimester documented in this encounter [facility] Evaluation note Note Date & Type Note Facility Evaluation note Diagnosis Well woman exam with routine gynecological exam Routine gynecological examination Menorrhagia with irregular cycle documented in this encounter [facility] Evaluation note Note Date & Type Note Facility Evaluation note Diagnosis Missed menses , unspecified gestational age ([facility]) Encounter for supervision of normal first in first trimester ([facility]) documented in this encounter [facility] Evaluation note Note Date & Type Note Facility Evaluation note Diagnosis First trimester ([facility]) state, incidental 12 weeks gestation of ([facility]) documented in this encounter [facility] Summary [...] All Problems Chronic tonsillitis / SNOMED CT 967487603 / Confirmed Abdominal pain, epigastric / SNOMED CT 492894509 / Confirmed Abdominal pain, left upper quadrant / SNOMED CT 384583862 / Confirmed Loss of appetite / SNOMED CT 068974769 / Confirmed Migraine / SNOMED CT 03398108 / Confirmed Nausea in adult / SNOMED CT 9970576368 / Confirmed Patellofemoral syndrome / SNOMED CT 8398963925 / Confirmed Raynaud's syndrome / SNOMED CT 849097345 / Confirmed Physical Examination Intake and Output Pt. denies significant n/v, and is (more content not included)... Additional Source Comments INFORMATION SOURCE (unrecogn ized section and content) DATE CREATED AUTHOR 03/31/2020 [facility] DATE CREATED AUTHOR AUTHOR'S ORGANIZ ATION 06/07/2022 [facility] DATE CREATED AUTHOR AUTHOR'S ORGANIZ ATION 02/24/2025 [facility] EPIC Reason for Visit (unrecogniz ed section and content) Reason Comments Routine Visit Reason Comments Well Women Visit Reason Comments Amenorrhea Care Teams (unrecognized sec tion and content) Head Piece Assembler Relationship Specialty Start Date End Date Marcello Bydr MD [address] [place] [address] PCP - General Family Medicine 05/20/23 Head Piece Assembler Relationship Specialty Start Date End Date Marcello Byrd MD [address] [place] [facility] [address] PCP - General Family Medicine 05/20/23 Head Piece Assembler Relationship Specialty Start Date End Date Marcello Byrd MD [address] [place] [facility] [address] PCP - General Family Medicine 05/20/23 Head Piece Assembler Relationship Specialty Start Date End Date Marcello Byrd MD [address] [place] [facility] [address] PCP - General Family Medicine 05/20/23 Head Piece Assembler Relationship Specialty Start Date End Date Marcello Byrd MD [address] [place] [facility] [address] PCP - General Family Medicine 05/20/23 Head Piece Assembler Relationship Specialty Start Date End Date Marcello Byrd MD [address] [place] [facility] [address] PCP - General Family Medicine 05/20/23 Head Piece Assembler Relationship Specialty Start Date End Date Marcello Byrd MD [address] [place] [facility] [address] PCP - General Family Medicine 05/20/23 FOR [...] BE BASED ON THE PRIMARY CLINICAL RECORDS. [facility] provides no warranty or guarantee of the accuracy or completeness of information in this document.
== END 2025-02-25 08:17 | disposition home or self-care (01) ==
LOC: US 08:16
PROVIDERS: PCP Family Medicine; Visit Provider Obstetrics & Gynecology
DX: N92.6 Irregular menstruation, unspecified (principal); O41.8X10 Other specified disorders of amniotic fluid and membranes, first trimester, not applicable or unspecified; O46.8X1 Other antepartum hemorrhage, first trimester; Z3A.13 13 weeks gestation of pregnancy
CPT/HCPCS: 76815

== ENCOUNTER 2025-05-23 07:11 | Outpatient (OUT) | payer OTHER, SELFPAY ==
--- OUTSIDE RECORDS SUMMARY | 2025-05-23 07:15 | XMS_ITS | CCD ---
Author Organization [facility] Care Team Providers Care Senior Software Qa Engineer Name Role Phone RUTH, DR NICHOLE Consulting [...] Unavailable ZIEBER, DR ORQUIDEA Marie Consulting Unavailable COLUMBUS, DR JESSENIA Cote Consulting Unavailable REQUEST, NONE [...] DR NONE LISTED Primary Care Unavaila ble KARJADYNK, DR HOWARD Consulting Unavailable KARASIK, DR HOWARD Attending Unavailable KARASIK, DR HOWARD Admitting Unavailable ZIEBER, DR ORQUIDEA Marie Consulting Unavailable REQUEST, DR NONE LISTED Primary Care Unavaila ble RUTH, DR NICHOLE Consulting Unavailable RUTH, DR NICHOLE Attending Unavailable RUTH, DR NICHOLE Admitting Unavailable RUTH, DR NICHOLE Consulting Unavailable DEBBY, DR ATWOOD Primary Care Unavailable RUTH, DR NICHOLE Attending Unavailable RUTH, DR NICHOLE Admitting Unavailable WEST, DR JESSENIA Cote Consulting Unavailable DEBBY, DR ATWOOD Primary Care Unavailable RUTH, DR NICHOLE Attending Unavailable RUTH, DR NICHOLE Admitting Unavailable RUTH, DR NICHOLE Consulting Unavailable Marcello Byrd MD Primary Care Provider [phone] Marcello Byrd MD Primary Care Provider [id number] ARCADIO MIRANDA Attending Unavailable ARCADIO MIRANDA Attending Unavailable ARCADIO MIRANDA Referring Unavailable ARCADIO MIRANDA Attending Unavailable ARCADIO MIRANDA Attending Unavailable RAMOS SMITH Attending Unavailable Medications Current Medications Medication Drug Class(es) Dates Sig (Normalized) Sig (Original) amoxicillin 875 mg / clavulanate 125 mg oral tablet (2 sources) Penicillin-class Antibacterial Start: 05-10-2025 amoxicillin-clavula zeenat (Augmentin) 875-125 MG tablet Take 875 mg by mouth every 12 (twelve) hours 05/10/2025 Active Magnesium (2 sources) Start: 08-23-2023 End: 08-22-2024 take 2 tablets by mouth in the morning magnesium 200 MG tablet Indications: Cluster headache, not intractable, unspecified chronicity pattern Take 2 tablets (400 mg) by mouth in the morning. 60 tablet 11 08/23/2023 08/22/2024 Active Magnesium Oxide (15 sources) magnesium oxide (Mag-Ox) 400 mg tablet 400 mg Daily Active metroNIDAZOLE 500 mg oral tablet (2 sources) Nitroimidazole Antimicrobial Start: 03-29-2025 End: 04-16-2025 take 1 tablet by mouth in the morning metroNIDAZOLE (Flagyl) 500 MG tablet Indications: BV (bacterial vaginosis) , 36 weeks gestation of ([facility]) Take 1 tablet (500 mg) by mouth in the morning and 1 tablet (500 mg) before bedtime. Do all this for 7 days. Do not drink alcohol while taking this medication. 14 tablet 03/29/2025 04/16/2025 Discontinued ondansetron 4 mg disintegrating oral tablet (5 sources) Serotonin-3 Receptor Antagonist Start: 03-27-2025 End: 04-26-2025 take 1 tablet by mouth every six hours for nausea ondansetron ODT (Zofran-ODT) 4 MG disintegrating tablet Indications: Nausea and vomiting, unspecified vomiting type Take 1 tablet (4 mg) by mouth every 6 (six) hours if needed for nausea or vomiting 30 tablet 3 03/27/2025 04/26/2025 Active Vit-Fe Fumarate-FA ( VITAMIN PO) (15 sources) Vit-Fe Fumarate-FA ( VITAMIN PO) Take [...] 11 02/06/2024 01/23/2025 Discontinued (Therapy completed) Vit w/Vu-Epxihtosc-ML (PNV PO) (5 sources) End: 08-30-2024 take 1 tablet by mouth in the morning Vit w/Tf-Rergmqwzf-KU (PNV PO) Take 1 tablet by mouth in the morning. 08/30/2024 Discontinued (Other) take 1 tablet by mouth in the mo rning Vit w/Ba-Ltjtzimqr-DO (PNV PO) Take 1 tablet by mouth in the morning. Active take 1 tablet by mouth in the mo rning Vit w/Vh-Jowexhirt-WZ (PNV PO) Take 1 tablet by mouth in the morning. 0 Active Problems Active Problems Problem Classification Problem Date Documented Date Episodic/Chronic Contraceptive and procreative management (2 sources) Sterilization requested; Translations: [Encounter for sterilization] 04-16-2025 Episodic Immunizations and screening for infectious disease (7 sources) Encounter for screening for human papillomavirus (HPV); Translations: [Contact with and (suspected) exposure to infections with a predominantly sexual mode of transmission] Onset: 07-04-2021 Episodic Menstrual disorders (8 sources) Irregular menstruation, unspecified; Translations: [Menometrorrhagia] Onset: 07-02-2021 Chronic Nausea and vomiting (2 sources) Nausea and vomiting; Translations: [Nausea with vomiting, unspecified] 03-27-2025 Episodic Other complications of (2 sources) Anomaly of placenta; Translations: [Malformation of placenta, unspecified, second trimester] 09-20-2023 Episodic Other female genital disorders (2 sources) Vaginal discharge; Translations: [Other specified noninflammatory disorders of vagina] 03-27-2025 Episodic Other and delivery including normal (17 sources) Encounter for routine follow-up; Translations: [Single live ] Onset: 02-08-2022 Episodic Other screening for suspected conditions (not mental disorders or infectious disease) (20 sources) Encounter for screening for malignant neoplasm of cervix; Translations: [Encounter for screening for Streptococcus B] Onset: 07-14-2021 Episodic Polyhydramnios and other problems of amniotic cavity (6 sources) Subchorionic hematoma; Translations: [Other specified disorders of amniotic fluid and membranes, first trimester, not applicable or unspecified] 03-27-2025 Episodic Residual codes; unclassified (2 sources) Gestation period, 12 weeks; Translations: [12 weeks gestation of ] 02-20-2025 Episodic Residual codes; unclassified (2 sources) Gestation period, 17 weeks; Translations: [17 weeks gestation of ] 03-27-2025 Episodic Residual codes; unclassified (2 sources) Gestation period, 20 weeks; Translations: [20 weeks gestation of ] 04-16-2025 Episodic Residual codes; unclassified (2 sources) Gestation period, 24 weeks; Translations: [24 weeks gestation of ] 05-16-2025 Episodic Unclassified (4 sources) CONTACT W/AND (SUSP) [...] Range Facility Urinalysis macro (dipstick) panel (U)on 05-16-2025 Bilirubin, UA Negative Negative - 4(70) +++ mg/dL [facility] Blood, UA Negative Negative - 50 Zeus/mcL [facility] Healthcare Clarity, UA Clear [facility] Color, UA Yellow [facility] Glucose, UA Negative Negative - 1999(110) ++++ mg/dL [facility] Interpretation and review of laboratory results Normal [facility] Ketones, UA Negative Negative - 160(16) ++++ mg/dL [facility] Leukocytes, UA Negative Negative - 500+++ Jing/mcL [facility] Nitrite, UA Negative Negative - Positive [facility] pH, UA 6 5 - 9 [facility] Protein, UA Negative Negative - 1999(20) ++++ mg/dL [facility] Spec Grav, UA 1.015 1 - 1.03 [facility] Urobilinogen, UA 1.0 0.2 - 12 mg/dL [facility] Urinalysis macro (dipstick) panel (U)on 04-16-2025 Bilirubin, UA Negative Negative - 4(70) +++ mg/dL [facility] Blood, UA Negative Negative - 50 Ezus/mcL [facility] Clarity, UA Clear [facility] Color, UA Yellow [facility] Glucose, UA Negative Negative - 1999(110) ++++ mg/dL [facility] Interpretation and review of laboratory results Normal [facility] Ketones, UA Negative Negative - 160(16) ++++ mg/dL [facility] Leukocytes, UA Negative Negative - 500+++ Jing/mcL [facility] Nitrite, UA Negative Negative - Positive [facility] pH, UA 7 5 - 9 [facility] Protein, UA Negative Negative - 1999(20) ++++ mg/dL [facility] Spec Grav, UA 1.01 1 - 1.03 [facility] Urobilinogen, UA 1.0 0.2 - 12 mg/dL [facility] RECURRENT VAGINITIS (HTRX)on 03-29-2025 ATOPOBIUM VAGINAE 0 [facility] ATOPOBIUM VAGINAE Not detected [facility] BVAB 2,3 (BACTERIAL VAGINOSIS ASSOCIATED BACTERIA 2, 3); MOBILUNCUS SPP 26.588 Abnormal [facility] BVAB 2,3 (BACTERIAL VAGINOSIS ASSOCIATED BACTERIA 2, 3); MOBILUNCUS SPP Detected Abnormal [facility] MAKEDA ALBICANS, PARAPSILOSIS, TROPICALIS 0 [facility] Healthcare MAKEDA ALBICANS, PARAPSILOSIS, TROPICALIS Not detected [facility] MAKEDA GLABRATA 0 [facility] MAKEDA GLABRATA Not detected [facility] MAKEDA KRUSEI 0 [facility] MAKEDA KRUSEI Not detected [facility] CHLAMYDIA TRACHOMATIS 0 [facility] CHLAMYDIA TRACHOMATIS Not detected [facility] GARDNERELLA VAGINALIS 0 [facility] GARDNERELLA VAGINALIS Not detected [facility] Interpretation and review of laboratory results Abnormal [facility] MEGASPHAERA (TYPES 1, 2) 0 [facility] MEGASPHAERA (TYPES 1, 2) Not detected [facility] MYCOPLASMA GENITALIUM 0 [facility] MYCOPLASMA GENITALIUM Not detected [facility] NEISSERIA GONORRHOEAE 0 [facility] NEISSERIA GONORRHOEAE Not detected [facility] TRICHOMONAS VAGINALIS 0 [facility] TRICHOMONAS VAGINALIS Not detected [facility] Healthcare [facility] US OB 14+ WEEKS ANATOMY SCAN on 03-27-2025 US OB 14+ WEEKS ANATOMY SCAN FINDINGS: A single, live intrauterine is present with normal cardiac rate of 144 beats per minute. Normal activity and amniotic fluid volume. Morphology is grossly normal. The placenta is posterior, 4 cm from the closed internal cervical os (5.8 cm length). The current sonographic age is 19 weeks and 6 days, based on the following measurements: BPD 4.2 cm (18 weeks, 5 days) Head Circumference 16.7 cm (19 weeks, 3 days) Abdominal Circumference 15.4 cm (20 weeks, 4 days) Femur Length 3.4 cm (20 weeks, 4 days) Presentation Breech Placenta Posterior Grade I Weight (g) by Percentile 60.2 % * These measurements result in an estimated date of delivery of September 04, 2025. The current estimated weight is 351 grams (0 pounds, 12 ounces). IMPRESSION: Single, live intrauterine , current sonographic age of 19 weeks and 6 days, with an estimated date of delivery of September 04, 2025. * Estimated Weight (g) by Percentile is based upon an accurate estimated age based on last menstrual period. TRANSCRIBED BY: ELECTRONICALLY SIGNED BY: Kale Russ MD Normal Not Available Comment on above: Order Comment: US OB ANATOMY SINGLE W US OB CERVICAL LENGTH Estimated Date of Delivery: 09/02/25 Gestational Age as of 03/27/2025: 17w2d Urinalysis macro (dipstick) panel (U)on 03-27-2025 Bilirubin, UA Negative Negative - 4(70) +++ mg/dL [facility] Blood, UA Negative Negative - 50 Zeus/mcL [facility] Clarity, UA Clear [facility] Color, UA Yellow [facility] Glucose, UA Negative Negative - 2000(110) ++++ mg/dL [facility] Interpretation and review of laboratory results Normal [facility] Ketones, UA Negative Negative - 160(16) ++++ mg/dL [facility] Leukocytes, UA Negative Negative - 500+++ Jing/mcL [facility] Nitrite, UA Negative Negative - Positive [facility] pH, UA 6 5 - 9 [facility] Protein, UA Negative Negative - 2000(20) ++++ mg/dL [facility] Spec Grav, UA 1.005 1 - 1.03 [facility] Urobilinogen, UA 1.0 0.2 - 12 mg/dL [facility] [place] [address] Ultrasound Report Signed Patient: VERÓNICA DECKER MR#: [id number] : 1995 Acct:[id number] Age/Sex: 29 / F ADM Date: 02/25/25 Loc: US Attending Dr: Arcadio Miranda D.O. Ordering Physician: Arcadio Miranda D.O. Date of Service: 02/25/25 Procedure(s): US OB limited Accession Number(s): [id number] cc: Arcadio Miranda D.O.; Marcello Byrd M.D. [address] [address] Patient Name: VERÓNICA DECKER MRN: [id number] date: 1995 Sex: F Assigned Patient Location: US Current Patient Location: US Accession/Order Number: [id number] Exam Date: 02/25/2025 09:39 Report Date: 02/25/2025 09:47 At the request of: ARCADIO MIRANDA DO Procedure: US OB limited ULTRASOUND OB LIMITED CLINICAL DATA: OB follow-up COMPARISON: 01/27/2025 There is a gestational sac within the uterus. A pole is present. The crown-rump length measurement of 7.4 cm correlates with an ultrasound age of 13 weeks 4 days +/- 1 week 2 days. The estimated date of delivery is August 29, 2025. The estimated date of delivery based on the comparison was September 02, 2025. There is cardiac activity with heart rate of 140 beats per minutes. The developing placenta is posterior. There is a hypoechoic area along the right aspect of the gestational sac measuring 14 x 18 x 19 mm. This may be residual of the implantation hemorrhage seen on the previous study. It is smaller. The amniotic fluid volume is subjectively normal. The cervix is closed with estimated length of 4.3 cm. The right ovary was not identified. The left ovary is seen and it measures 3.7 x 2.2 x 4.2 cm. It contains a small cyst measuring just over 2 cm. No free fluid is seen. US/US OB limited IMPRESSION: SINGLE LIVE INTRAUTERINE GESTATION WITH ULTRASOUND AGE OF 13 WEEKS 4 DAYS. RESOLVING IMPLANTATION HEMORRHAGE. Impression dictated by: Linda Gaffney M.D. 02/25/2025 9:47 AM Dictation Location: [place] [address] Electronically authenticated by: [id number] Y Date: 02/25/2025 09:47 Dictated By: Linda Gaffney M.D. Signed By: 02/25/25 0950 DD/ 0947 TD/TT: Incident Manager: [facility] Radiology, Radiologi MD rohan - 02/25/2025 [place] [address] Ultrasound Report Signed Patient: VERÓNICA DECKER MR#: [id number] : 1995 Acct:[id number] Age/Sex: 29 / F ADM Date: 02/25/25 Loc: US Attending Dr: Arcadio Miranda D.O. Ordering Physician: Ruth,Arcadio D.O. Date of Service: 02/25/25 Procedure(s): US OB limited Accession Number(s): [id number] cc: Arcadio Miranda D.O.; Marcello Byrd M.D. [address] [address] Patient Name: VERÓNICA DECKER MRN: [id number] date: 1995 Sex: F Assigned Patient Location: US Current Patient Location: US Accession/Order Number: [id number] Exam Date: 02/25/2025 09:39 Report Date: 02/25/2025 09:47 At the request of: ARCADIO MIRANDA DO Procedure: US OB limited ULTRASOUND OB LIMITED CLINICAL DATA: OB follow-up COMPARISON: 01/27/2025 There is a gestational sac within the uterus. A pole is present. The crown-rump length measurement of 7.4 cm correlates with an ultrasound age of 13 weeks 4 days +/- 1 week 2 days. The estimated date of delivery is August 29, 2025. The estimated date of delivery based on the comparison was September 02, 2025. There is cardiac activity with heart rate of 140 beats per minutes. The developing placenta is posterior. There is a hypoechoic area along the right aspect of the gestational sac measuring 14 x 18 x 19 mm. This may be residual of the implantation hemorrhage seen on the previous study. It is smaller. The amniotic fluid volume is subjectively normal. The cervix is closed with estimated length of 4.3 cm. The right ovary was not identified. The left ovary is seen and it measures 3.7 x 2.2 x 4.2 cm. It contains a small cyst measuring just over 2 cm. No free fluid is seen. US/US OB limited IMPRESSION: SINGLE LIVE INTRAUTERINE GESTATION WITH ULTRASOUND AGE OF 13 WEEKS 4 DAYS. RESOLVING IMPLANTATION HEMORRHAGE. Impression dictated by: Linda Gaffney M.D. 02/25/2025 9:47 AM Dictation Location: [place] [address] Electronically authenticated by: [id number] Y Date: 02/25/2025 09:47 Dictated By: Linda Gaffney M.D. Signed By: 02/25/2550 DD/ TD/TT: Incident Manager: [facility] Radiology Study observation (narrative) [facility] US for pregnancyOrdered By: Radiologist Radiology on 02-25-2025 [facility] Work Phone: Urinalysis macro (dipstick) panel (U)on 02-20-2025 Bilirubin, UA Negative Negative - 4(70) +++ mg/dL [facility] Blood, UA Negative Negative - 50 Zeus/mcL [facility] Clarity, UA Clear [facility] Color, UA Yellow [facility] Glucose, UA Negative Negative - 2000(110) ++++ mg/dL [facility] Interpretation and review of laboratory results Normal [facility] Ketones, UA Negative Negative - 160(16) ++++ mg/dL [facility] Leukocytes, UA Negative Negative - 500+++ Jing/mcL [facility] Nitrite, UA Negative Negative - Positive [facility] pH, UA 6 5 - 9 [facility] Protein, UA Negative Negative - 2000(20) ++++ mg/dL [facility] Spec Grav, UA 1.02 1 - 1.03 [facility] Urobilinogen, UA 0.2 0.2 - 12 mg/dL [facility] ALL CBC WITH AUTO DIFFon BASOPHILS ABSOLUTE AUTO 0 [facility] Basophils/100 WBC (Bld) 0.4 % 0.2 - 2.0 % [facility] Eosinophils/100 WBC (Bld) 0.9 % 0.9 - 7.0 % [facility] Erythrocyte distribution width (RBC) [Ratio] 13.5 % 11.0 - 15.0 % [facility] Hematocrit (Bld) [Volume fraction] 36.8 % 36.0 - 48.0 % [facility] Hemoglobin (Bld) [Mass/Vol] 12.4 g/dL 12.0 - 16.0 g/dL [facility] IMMATURE GRANULOCYTES ABS AUTO 0.04 High [facility] Immature granulocytes/100 WBC (Bld) 0.4 % 0.0 - 0.5 % [facility] Interpretation and review of laboratory results Abnormal [facility] LYMPHOCYTES ABSOLUTE AUTO 2.1 [facility] Lymphocytes/100 WBC (Bld) 18.5 % Low 20.5 - 60.0 % [facility] MCH (RBC) [Entitic mass] 30.2 pg 26.7 - 34.0 pg [facility] MCHC (RBC) [Mass/Vol] 33.7 g/dL 29.9 - 35.2 g/dL [facility] MCV (RBC) [Entitic vol] 89.8 fL 81.0 - 99.0 fL [facility] MONOCYTES ABSOLUTE AUTO 0.7 [facility] Monocytes/100 WBC (Bld) 6.2 % 1.7 - 12.0 % [facility] NEUTROPHILS ABSOLUTE AUTO 8.3 High [facility] Neutrophils/100 WBC (Bld) 73.6 % 43.0 - 75.0 % [facility] Platelet mean volume (Bld) [Entitic vol] 9.7 fL 9.5 - 13.5 fL [facility] EO # 0.1 [facility] PLT 273 [facility] RBC 4.1 Low [facility] WBC 11.3 High [facility] HCG ( test) Ql (U)o n 01-31-2025 Interpretation and review of laboratory results Abnormal [facility] Preg Test, Ur Positive Negative [facility] US OB TRANSVAGINALon 025 US OB TRANSVAGINAL [...] II, MD, PHD at 01-Feb-2025 06:15:38 AM [facility] Normal Not Available Comment on above: Order Comment: US OB TRANSVAGINAL No LMP recorded. Urinalysis macro (dipstick) panel (U)on 01-31-2025 Bilirubin, UA Negative Negative - 4(70) +++ mg/dL [facility] Blood, UA Positive Negative - 50 Zeus/mcL [facility] Comment on above: Large Clarity, UA Clear [facility] Color, UA Yellow [facility] Glucose, UA Negative Negative - 2000(110) ++++ mg/dL [facility] Interpretation and review of laboratory results Abnormal [facility] Ketones, UA Positive Negative - 160(16) ++++ mg/dL [facility] Comment on above: Trace Leukocytes, UA Trace Negative - 500+++ Jing/mcL [facility] Nitrite, UA Negative Negative - Positive [facility] pH, UA 7.5 5 - 9 [facility] Protein, UA Negative Negative - 2000(20) ++++ mg/dL [facility] Spec Grav, UA 1.02 1 - 1.03 [facility] Urobilinogen, UA 0.2 0.2 - 12 mg/dL [facility] IGP,APTIMA HPV,AGE GDLNon AGE GDLN ACOG TESTING Note . [facility] Comment on above: TESTS RESULT FLAG UN ITS REF RANGE LAB Clinician Provided Cytology Information Source.............Cervix;Endocervix No. of containers..01 ThinPrep Vial Age Algo ACOG Daria... FLAG LEGEND: L-Low Normal,H-High Normal,LL-Alert Low,HH-Alert High <-Panic Low,>-Panic High,A-Abnormal,AA-Critical Abnormal Performed at: 01 =[facility] [id number] Carrie Mcgovern MD, IGP, RFX APTIMA HPV ASCU Note . [facility] Comment on above: TESTS RESULT FLAG UN ITS REF RANGE LAB DIAGNOSIS: 02 NEGATIVE FOR INTRAEPITHELIAL LESION OR MALIGNANCY. Specimen adequacy: 02 Satisfactory for evaluation. Endocervical and/or squamous metaplastic cells (endocervical component) are present. Performed by: Jyoti Lee, Revenue Cycle Specialist ([facility]) . 02 Note: Note 02 The Pap [...] <-Panic Low,>-Panic High,A-Abnormal,AA-Critical Abnormal Performed at: [address] [id number] Carrie Mcgovern MD, Performed at: =[facility] [id number] Hydraulic Tester: Carrie Mcgovern MD, Phone: [phone] Performed at: [address] [id number] Hydraulic Tester: Carrie Mcgovern MD, Phone: [phone] BRUSH-SPATULA CERVIX ENDOCERVIX [facility] Urinalysis macro (dipstick) panel (U)on 09-20-2023 Bilirubin, UA Negative Negative - 4(70) +++ mg/dL [facility] Blood, UA Negative Negative - 50 Zeus/mcL [facility] Clarity, UA Clear [facility] Color, UA Yellow [facility] Glucose, UA Negative Negative - 1999(110) ++++ mg/dL [facility] Interpretation and review of laboratory results Abnormal [facility] Ketones, UA Negative Negative - 160(16) ++++ mg/dL [facility] Leukocytes, UA Trace Negative - 500+++ Jing/mcL [facility] Nitrite, UA Negative Negative - Positive [facility] pH, UA 7.0 5 - 9 [facility] Protein, UA Negative Negative - 1999(20) ++++ mg/dL [facility] Spec Grav, UA 1.010 1 - 1.03 [facility] Urobilinogen, UA 0.2 0.2 - 12 mg/dL [facility] PAP ACOG PANEL 2: 21 to 29on 06-02-2022 . . Normal [facility] Comment on above: Performed By: #### G LU1HR #### [facility] [address] [place] [address] [address] Joanna Chen Age Gdln ACOG Testing 21-29 [facility] Comment on above: Performed By: #### G LU1HR #### [facility] [address] [address] [address] Joanna Chen DIAGNOSIS: Comment Normal [facility] Comment on above: Result Comment: NEGA TIVE FOR INTRAEPITHELIAL LESION OR MALIGNANCY. Performed By: #### G LU1HR #### [facility] [address] [address] [address] Joanna Chen Methodology: Comment [facility] Comment on above: Result Comment: This liquid based ThinPrep(R) pap test was screened with the use of an image guided system. Performed By: #### G LU1HR #### [facility] [address] [place] [address] Dr. Joanna Chen Note: Comment [facility] Comment on above: Result Comment: The Pap smear is a screening test designed to aid in the detection of premalignant and malignant conditions of the uterine cervix. It is not a diagnostic procedure and should not be used as the sole means of detecting cervical cancer. Both false-positive and false-negative reports do occur. . Performed By: #### G LU1HR #### [facility] [address] [place] [address] Dr. Joanna Chen Performed by: Comment Normal [facility] Comment on above: Result Comment: Serena Bassett, Revenue Cycle Specialist (ASCP) Performed By: #### G LU1HR #### [facility] [address] [place] [address] [address] Joanna Chen Reflex Criteria: Comment [facility] Comment on above: Result Comment: The HPV DNA reflex criteria were not met with this specimen result therefore, no HPV testing was performed. . Performed By: #### G LU1HR #### [facility] Laboratory [address] [place] [address] Dr. Joanna Chen Specimen adequacy: Comment Normal [facility] Comment on above: Result Comment: Sati sfactory for evaluation. Endocervical and/or squamous metaplastic cells (endocervical component) are present. Performed By: #### G LU1HR #### [facility] [address] [address] [address] Joanna Chen CBC AUTO DIFFon 02-02-2022 BASO # 0.1 103/ul Normal 0.0-0.1 [facility] Comment on above: Performed By: #### H BSANS #### [facility] [address] [place] [address] Dr. Joanna Chen Basophils/100 WBC (Bld) 0.3 % Normal 0.2-2.0 [facility] Comment on above: Performed By: #### H BSANS #### [facility] [address] [place] [address] Dr. Joanna Chen EO # 0.1 103/ul Normal 0.0-0.7 [facility] Comment on above: Performed By: #### H BSANS #### [facility] [address] [place] [address] Dr. Joanna Chen Eosinophils/100 WBC (Bld) 0.4 % Critically low 0.9-7.0 [facility] Comment on above: Performed By: #### H BSANS #### [facility] [address] [place] [address] Dr. Joanna Chen Erythrocyte distribution width (RBC) [Ratio] 13.8 % Normal 11.0-15.0 [facility] Comment on above: Performed By: #### H BSANS #### [facility] [address] [place] [address] Dr. Joanna Chen Hematocrit (Bld) [Volume fraction] 31.7 % Critically low 36.0-48.0 [facility] Comment on above: Performed By: #### H BSANS #### [facility] [address] [place] [address] Dr. Joanna Chen Hemoglobin (Bld) [Mass/Vol] 10.0 g/dL Critically low 12.0-16.0 [facility] Comment on above: Performed By: #### H BSANS #### [facility] [address] [address] [address] Joanna Chen IG # 0.15 10e3/ul Critically high 0.00-0.03 [facility] Comment on above: Performed By: #### H BSANS #### [facility] [address] [address] [address] Joanna Chen IG % 0.9 % Critically high 0.0-0.5 [facility] Comment on above: Performed By: #### H BSANS #### [facility] [address] [address] [address] Joanna Chen LYMPH # 1.7 103/ul Normal 1.2-3.8 [facility] Comment on above: Performed By: #### H BSANS #### [facility] [address] [place] [address] Dr. Joanna Chen Lymphocytes/100 WBC (Bld) 10.5 % Critically low 20.5-60.0 [facility] Comment on above: Performed By: #### H BSANS #### [facility] [address] [place] [address] Dr. Joanna Chen MANUAL DIFF REQ NO Normal [facility] Comment on above: Performed By: #### H BSANS #### [facility] [address] [place] [address] Dr. Joanna Chen MCH (RBC) [Entitic mass] 29.2 pg Normal 26.7-34.0 [facility] Comment on above: Performed By: #### H BSANS #### [facility] [address] [place] [address] Dr. Joanna Chen MCHC (RBC) [Mass/Vol] 31.5 g/dL Normal 29.9-35.2 [facility] Comment on above: Performed By: #### H BSANS #### [facility] [address] [place] [address] Dr. Joanna Chen MCV (RBC) [Entitic vol] 92.4 fL Normal 81.0-99.0 [facility] Comment on above: Performed By: #### H BSANS #### [facility] [address] [address] [address] Joanna Chen MONO # 1.2 103/ul Critically high 0.3-0.8 [facility] Comment on above: Performed By: #### H BSANS #### [facility] [address] [address] [address] Joanna Chen Monocytes/100 WBC (Bld) 7.2 % Normal 1.7-12.0 [facility] Comment on above: Performed By: #### H BSANS #### [facility] [address] [address] [address] Joanna Chen NEUT # 13.0 103/ul Critically high 1.4-6.5 The [facility] Comment on above: Performed By: #### H BSANS #### [facility] [address] [place] [address] Dr. Joanna Chen Neutrophils/100 WBC (Bld) 80.7 % Critically high 43.0-75.0 [facility] Comment on above: Performed By: #### H BSANS #### [facility] [address] [address] [address] Joanna Chen Platelet mean volume (Bld) [Entitic vol] 10.0 fL Normal 9.5-13.5 [facility] Comment on above: Performed By: #### H BSANS #### [facility] [address] [place] [address] Dr. Joanna Chen PLT 181 103/ul Normal 150-450 [facility] Comment on above: Performed By: #### H BSANS #### [facility] [address] [address] [address] Joanna Chen RBC 3.43 106/ul Critically low 4.20-5.40 [facility] Comment on above: Performed By: #### H BSANS #### [facility] [address] [address] [address] Joanna Chen WBC 16.1 103/ul Critically high 4.0-11.0 The [facility] Comment on above: Performed By: #### H BSANS #### [facility] [address] [place] [address] Dr. Joanna Chen CBC AUTO DIFFon 02-01-2022 BASO # 0.0 103/ul Normal 0.0-0.1 [facility] Comment on above: Performed By: #### G LU1HR #### [facility] [address] [place] [address] Dr. Joanna Chen Basophils/100 WBC (Bld) 0.2 % Normal 0.2-2.0 [facility] Comment on above: Performed By: #### G LU1HR #### [facility] [address] [place] [address] Dr. Joanna Chen EO # 0.0 103/ul Normal 0.0-0.7 [facility] Comment on above: Performed By: #### G LU1HR #### [facility] [address] [place] [address] Dr. Joanna Chen Eosinophils/100 WBC (Bld) 0.2 % Critically low 0.9-7.0 [facility] Comment on above: Performed By: #### G LU1HR #### [facility] [address] [place] [address] Dr. Joanna Chen Erythrocyte distribution width (RBC) [Ratio] 13.8 % Normal 11.0-15.0 [facility] Comment on above: Performed By: #### G LU1HR #### [facility] [address] [place] [address] Dr. Joanna Chen Hematocrit (Bld) [Volume fraction] 36.2 % Normal 36.0-48.0 [facility] Comment on above: Performed By: #### G LU1HR #### [facility] [address] [place] [address] Dr. Joanna hCen Hemoglobin (Bld) [Mass/Vol] 11.8 g/dL Critically low 12.0-16.0 [facility] Comment on above: Performed By: #### G LU1HR #### [facility] [address] [place] [address] Dr. Joanna Chen IG # 0.14 10e3/ul Critically high 0.00-0.03 [facility] Comment on above: Performed By: #### G LU1HR #### [facility] [address] [address] [address] Joanna Chen IG % 1.0 % Critically high 0.0-0.5 [facility] Comment on above: Performed By: #### G LU1HR #### [facility] [address] [address] [address] Joanna Chen LYMPH # 2.0 103/ul Normal 1.2-3.8 [facility] Comment on above: Performed By: #### G LU1HR #### [facility] [address] [address] [address] Joanna Chen Lymphocytes/100 WBC (Bld) 14.5 % Critically low 20.5-60.0 [facility] Comment on above: Performed By: #### G LU1HR #### [facility] [address] [place] [address] Dr. Joanna Chen MANUAL DIFF REQ NO Normal [facility] Comment on above: Performed By: #### G LU1HR #### [facility] [address] [address] [address] Joanna Chen MCH (RBC) [Entitic mass] 29.2 pg Normal 26.7-34.0 [facility] Comment on above: Performed By: #### G LU1HR #### [facility] [address] [address] [address] Joanna Chen MCHC (RBC) [Mass/Vol] 32.6 g/dL Normal 29.9-35.2 [facility] Comment on above: Performed By: #### G LU1HR #### [facility] [address] [place] [address] Dr. Joanna Chen MCV (RBC) [Entitic vol] 89.6 fL Normal 81.0-99.0 [facility] Comment on above: Performed By: #### G LU1HR #### [facility] [address] [address] [address] Joanna Chen MONO # 1.0 103/ul Critically high 0.3-0.8 [facility] Comment on above: Performed By: #### G LU1HR #### [facility] [address] [place] [address] Dr. Joanna Chen Monocytes/100 WBC (Bld) 7.2 % Normal 1.7-12.0 [facility] Comment on above: Performed By: #### G LU1HR #### [facility] [address] [place] [address] Dr. Joanna Chen NEUT # 10.6 103/ul Critically high 1.4-6.5 [facility] Comment on above: Performed By: #### G LU1HR #### [facility] [address] [place] [address] Dr. Joanna Chen Neutrophils/100 WBC (Bld) 76.9 % Critically high 43.0-75.0 [facility] Comment on above: Performed By: #### G LU1HR #### [facility] [address] [place] [address] Dr. Joanna Chen Platelet mean volume (Bld) [Entitic vol] 9.7 fL Normal 9.5-13.5 [facility] Comment on above: Performed By: #### G LU1HR #### [facility] [address] [place] [address] Dr. Joanna Chen PLT 203 103/ul Normal 150-450 [facility] Comment on above: Performed By: #### G LU1HR #### [facility] [address] [place] [address] Dr. Joanna Chen RBC 4.04 106/ul Critically low 4.20-5.40 [facility] Comment on above: Performed By: #### G LU1HR #### [facility] [address] [place] [address] Dr. Joanna Chen WBC 13.8 103/ul Critically high 4.0-11.0 The [facility] Comment on above: Performed By: #### G LU1HR #### [facility] [address] [place] [address] Dr. Joanna Chen Covid-19 PCR (CVDTBH)on 01-14 SARS-CoV-2 (COVID-19) RNA MANINDER+probe Ql (Unsp spec) Not detected Normal NOT DETECTED [facility] Comment on above: Result Comment: When diagnostic [...] for this test is supported by the [place] of Health and Human Service's declaration that [...] used). Performed By: #### G LU1HR #### [facility] [address] [place] [address] Dr. Joanna Chen DRUG SCREEN RAPID (URINE)on 02-01-2022 AMP Negative Normal NEGATIVE [facility] Comment on above: Performed By: #### H BSANS #### [facility] [address] [place] [address] Dr. Joanna Chen BAR Negative Normal NEGATIVE [facility] Comment on above: Performed By: #### H BSANS #### [facility] [address] [place] [address] Dr. Joanna Chen BUP Negative Normal NEGATIVE [facility] Comment on above: Performed By: #### H BSANS #### [facility] [address] [place] [address] Dr. Joanna Chen BZO Negative Normal NEGATIVE [facility] Comment on above: Performed By: #### H BSANS #### [facility] [address] [place] [address] Dr. Joanna Chen HALLE Negative Normal NEGATIVE [facility] Comment on above: Performed By: #### H BSANS #### [facility] [address] [place] [address] Dr. Joanna Chen CUT-OFFS SEE BELOW Normal [facility] Comment on above: Result Comment: AMP (Amphetamine): 500ng/mL, BAR (Barbituates): 200 ng/mL, BZO (Benzodiazepines): 150 ng/mL, BUP (Buprenorphine): 10 ng/mL, HALLE (Cocaine): 150 ng/mL, mAMP (Methamphetamine): 500 ng/mL, MTD (Methadone): 200 ng/mL, OPI (Opiates): 100 ng/mL, OXY (Oxycodone): 100 ng/mL, PCP (Phencyclidine): 25 ng/mL, PPX (Propoxyphene): 300 ng/mL, THC (Cannabinoids): 50 ng/mL, TCA (Trycyclic Antidepressants): 300 ng/mL Performed By: #### H BSANS #### [facility] [address] [place] [address] Dr. Joanna Chen DRUG CUT HEADER DRUG CLASS TEST SYST EM CUT-OFF CONCENTRATIONS ARE FOLLOWS: Normal [facility] Comment on above: Performed By: #### H BSANS #### [facility] [address] [place] [address] Dr. Joanna Chen mAMP Negative Normal NEGATIVE [facility] Comment on above: Performed By: #### H BSANS #### [facility] [address] [place] [address] Dr. Joanna Chen MTD Negative Normal NEGATIVE [facility] Comment on above: Performed By: #### H BSANS #### [facility] [address] [place] [address] Dr. Joanna hCen OPI Negative Normal NEGATIVE [facility] Comment on above: Performed By: #### H BSANS #### [facility] [address] [place] [address] Dr. Joanna Chen OXY Negative Normal NEGATIVE [facility] Comment on above: Performed By: #### H BSANS #### [facility] [address] [place] [address] Dr. Joanna Chen PCP Negative Normal NEGATIVE [facility] Comment on above: Performed By: #### H BSANS #### [facility] [address] [address] [address] Joanna Chen PPX Negative Normal NEGATIVE [facility] Comment on above: Performed By: #### H BSANS #### [facility] [address] [place] [address] Dr. Joanna Chen TCA Negative Normal NEGATIVE [facility] Comment on above: Performed By: #### H BSANS #### [facility] [address] [place] [address] Dr. Joanna Chen THC Negative Normal NEGATIVE [facility] Comment on above: Performed By: #### H BSANS #### [facility] [address] [place] [address] Dr. Joanna Chen TYPE AND SCREENon 02-01-2022 TYPE AND SCREEN Negative Normal [facility] Comment on above: Performed By: #### C MP, PREGQNT #### [facility] [address] [place] [address] Dr. Joanna Chen UA (CLEAN/CATCH) SHERIFF'S OFFICER/MICRO I F IND.on 02-01-2022 Bilirubin Ql (U) Negative Normal NEGATIVE [facility] Comment on above: Performed By: #### U ACSIND, UMICRO #### [facility] [address] [place] [address] Dr. Joanna Chen Clarity (U) CLEAR Normal CLEAR [facility] Comment on above: Performed By: #### U ACSIND, UMICRO #### [facility] [address] [place] [address] Dr. Joanna Chen Color (U) LT. YELLOW Normal YELLOW [facility] Comment on above: Performed By: #### U ACSIND, UMICRO #### [facility] [address] [place] [address] Dr. Joanna Chen Glucose Ql (U) Negative Normal NEGATIVE [facility] Comment on above: Performed By: #### U ACSIND, UMICRO #### [facility] [address] [place] [address] Dr. Joanna Chen Hemoglobin Ql (U) Negative Normal NEGATIVE [facility] Comment on above: Performed By: #### U ACSIND, UMICRO #### [facility] [address] [address] [address] Joanna Chen Ketones Ql (U) Negative Normal NEGATIVE [facility] Comment on above: Performed By: #### U ACSIND, UMICRO #### [facility] [address] [place] [address] Dr. Joanna Chen LEUKOCYTES TRACE Abnormal NEGATIVE [facility] Comment on above: Performed By: #### U ACSPRIETO UMICRO #### [facility] [address] [address] [address] Joanna Chen Nitrite Ql (U) Negative Normal NEGATIVE [facility] Comment on above: Performed By: #### U ACSPRIETO UMICRO #### [facility] [address] [place] [address] Dr. Joanna Chen pH (U) 7.0 [pH] Normal 5-9 [facility] Comment on above: Performed By: #### U ACSPRIETO UMICRO #### [facility] [address] [place] [address] Dr. Joanna Chen SPEC GRAVITY 1.010 Normal 1.005-<=1.0 25 [facility] Comment on above: Performed By: #### U ACSPRIETO UMICRO #### [facility] [address] [place] [address] Dr. Joanna Chen UA PROTEIN Negative Normal NEGATIVE/ TRACE [facility] Comment on above: Performed By: #### U ACSPRIETO UMICRO #### [facility] [address] [place] [address] Dr. Joanna Chen UR MICRO IND INDICATED Normal [facility] Comment on above: Performed By: #### U ACSPRIETO UMICRO #### [facility] [address] [place] [address] Dr. Joanna Chen Urobilinogen Qn (U) 0.2 {Frank'U}/dL Normal 0.2 - 1.0 [facility] Comment on above: Performed By: #### U ACSPRIETO UMICRO #### [facility] [address] [address] [address] Joanna Chen URINE MICROSCOPIC ONLYon BACTERIA NONE SEEN Normal NONE SEEN [facility] Comment on above: Performed By: #### U ACSPRIETO, UMICRO #### [facility] [address] [place] [address] Dr. Joanna Chen Bacteria identified Cx Nom (U) NOT INDICATED Normal [facility] Comment on above: Performed By: #### U ACSIND, UMICRO #### [facility] [address] [place] [address] Dr. Joanna Chen CAST NONE SEEN Normal NONE SEEN [facility] Comment on above: Performed By: #### U ACSIND, UMICRO #### [facility] [address] [place] [address] Dr. Joanna Chen Crystals LM Nom (Urine sed) NONE SEEN Normal NONE SEEN [facility] Comment on above: Performed By: #### U ACSPRIETO, UMICRO #### [facility] [address] [place] [address] Dr. Joanna Cehn Epithelial cells LM Ql (Urine sed) FEW Abnormal NONE SEEN /RARE [facility] Comment on above: Performed By: #### U ACSPRIETO UMICRO #### [facility] [address] [place] [address] Dr. Joanna Chen MUCOUS NONE SEEN Normal NONE SEEN [facility] Comment on above: Performed By: #### U ACSPRIETO, UMICRO #### [facility] [address] [place] [address] Dr. Joanna Chen RBC NONE SEEN Abnormal 0-2 [facility] Comment on above: Performed By: #### U ACSIND, UMICRO #### [facility] [address] [place] [address] Dr. Joanna Chen WBC 0-2 Abnormal NONE SEEN [facility] Comment on above: Performed By: #### U ACSIND, UMICRO #### [facility] [address] [place] [address] Dr. Joanna Chen US PREG BIOPHY W [...] ORQUIDEA RING Date: 2022-02-01 12:34 Normal [facility] GROUP B STREP CULTUREon S. agalactiae Ag Ql (Unsp spec) Culture Observations: NEGATIVE FOR GROUP B STREPTOCOCCUS. Normal [facility] Comment on above: Performed By: #### C MP, PREGQNT #### [facility] [address] [place] [address] Dr. Joanna Chen US PREG REEVAL ABNon [...] by: ORQUIDEA RING Date: 2021-12-21 16:20 Normal [facility] GLUCOSE - 1HRon 10-30-2021 Glucose [Mass/Vol] 82 mg/dL Normal 74-106 [facility] Comment on above: Performed By: #### G LU1HR #### [facility] [address] [place] [address] Dr. Joanna Chen HEMOGRAM AND PLATELon 2021 Hematocrit (Bld) [Volume fraction] 35.0 % Critically low 36.0-48.0 [facility] Comment on above: Performed By: #### H BSANS #### [facility] [address] [place] [address] Dr. Joanna Chen Hemoglobin (Bld) [Mass/Vol] 11.4 g/dL Critically low 12.0-16.0 [facility] Comment on above: Performed By: #### H BSANS #### [facility] [address] [place] [address] Dr. Joanna Chen MCH (RBC) [Entitic mass] 30.2 pg Normal 26.7-34.0 [facility] Comment on above: Performed By: #### H BSANS #### [facility] [address] [place] [address] Dr. Joanna Chen MCHC (RBC) [Mass/Vol] 32.6 g/dL Normal 29.9-35.2 [facility] Comment on above: Performed By: #### H BSANS #### [facility] [address] [place] [address] Dr. Joanna Chen MCV (RBC) [Entitic vol] 92.6 fL Normal 81.0-99.0 [facility] Comment on above: Performed By: #### H BSANS #### [facility] [address] [place] [address] Dr. Joanna Chen PLT 267 103/ul Normal 150-450 [facility] Comment on above: Performed By: #### H BSANS #### [facility] [address] [place] [address] Dr. Joanna Chen RBC 3.78 106/ul Critically low 4.20-5.40 [facility] Comment on above: Performed By: #### H BSANS #### [facility] [address] [place] [address] Dr. Joanna Chen WBC 12.0 103/ul Critically high 4.0-11.0 [facility] Comment on above: Performed By: #### H BSANS #### [facility] [address] [place] [address] Dr. Joanna Chen CHLAMYDIA/GONOCOCCUS MANINDER ( AB/URINE/PAPon 10-21-2021 Chlamydia trachomatis, MNAINDER Negative Normal Negative [facility] Comment on above: Performed By: #### G LU1HR #### [facility] [address] [address] [address] Joanna Chen Neisseria gonorrhoeae, MANINDER Negative Normal Negative [facility] Comment on above: Performed By: #### G LU1HR #### [facility] [address] [address] [address] Joanna Chen VAGINITIS/VAGINOSIS DNA PROB Cheng 10-20-2021 Makeda species Negative Normal Negative [facility] Comment on above: Performed By: #### H BSANS #### [facility] [address] [address] [address] Joanna Chen Gardnerella vaginalis Positive Abnormal Negative [facility] Comment on above: Performed By: #### H BSANS #### [facility] [address] [address] [address] Joanna Chen Trichomonas vaginalis Negative Normal Negative [facility] Comment on above: Performed By: #### H BSANS #### [facility] [address] [address] [address] Joanna Chen US PREG INCOMPLETE ANATOMYon 10-19-2021 PREG INCOMPLETE ANATOMY EXAMINATION: US PREG INCOMPLETE ANATOMY HISTORY: screening COMPARISON: 10/01/2021 FINDINGS: presentation: Cephalic Heart rate: 141 bpm Normal anatomy: Right ventricular outflow track, left ventricular outflow tract Other: Single cardiac focus again noted IMPRESSION: Stable single cardiac focus, nonspecific Electronically authenticated by: JESSENIA LOPEZ Date: 2021-10-19 18:33 Normal [facility] US PREG ANATOMY SINGLEon US PREG ANATOMY [...] (44% by ultrasound, 13% by expected); FL/AC: [id number] FL/BPD: [id number] HC/AC: 1.667115 GESTATIONAL AGE: Age by EDC: 20 weeks, [...] ORQUIDEA RING Date: 2021-10-01 17:16 Normal [facility]15 SARS-CoV-2 (COVID-19) RNA MANINDER+probe Ql (Unsp spec) Not detected Normal NOT DETECTED [facility] Comment on above: Result Comment: This test is not yet approved or cleared by the [place] FDA. When there are no FDA-approved or cleared tests available, and other criteria are met, FDA can make tests available under an emergency access mechanism called an Emergency Use Authorization (EUA). The EUA for this test is supported by the [employer] of Health and Human Service's (HHS's) declaration [...] SARS-CoV-2. Performed By: #### G LU1HR #### [facility] [address] [place] [address] Dr. Joanna Chen ALFRED BOX TEST PT SEND OUTo n 07-27-2021 SENT TO REF LAB 07/27/2021 Normal [facility] Comment on above: Performed By: #### N BOX #### [facility] [address] [place] [address] Dr. Joanna Chen CBC AUTO DIFFon 07-15-2021 BASO # 0.0 103/ul Normal 0.0-0.1 [facility] Comment on above: Performed By: #### G LU1HR #### [facility] [address] [place] [address] Dr. Joanna Chen Basophils/100 WBC (Bld) 0.5 % Normal 0.2-2.0 [facility] Comment on above: Performed By: #### G LU1HR #### [facility] [address] [place] [address] Dr. Joanna Chen EO # 0.0 103/ul Normal 0.0-0.7 [facility] Comment on above: Performed By: #### G LU1HR #### [facility] [address] [place] [address] Dr. Joanna Chen Eosinophils/100 WBC (Bld) 0.5 % Critically low 0.9-7.0 [facility] [facility] [place] Comment on above: Performed By: #### G LU1HR #### [facility] [address] [place] [address] Dr. Joanna Chen Erythrocyte distribution width (RBC) [Ratio] 13.3 % Normal 11.0-15.0 [facility] [place] Comment on above: Performed By: #### G LU1HR #### [facility] [address] [place] [address] Dr. Joanna Chen Hematocrit (Bld) [Volume fraction] 39.1 % Normal 36.0-48.0 [facility] [place] Comment on above: Performed By: #### G LU1HR #### [facility] [address] [place] [address] Dr. Joanna Chen Hemoglobin (Bld) [Mass/Vol] 13.0 g/dL Normal 12.0-16.0 [facility] [place] Comment on above: Performed By: #### G LU1HR #### [facility] [address] [place] [address] Dr. Joanna Chen IG # 0.04 10e3/ul Critically high 0.00-0.03 [facility] Comment on above: Performed By: #### G LU1HR #### [facility] [address] [place] [address] Dr. Joanna Chen IG % 0.5 % Normal 0.0-0.5 [facility] [place] Comment on above: Performed By: #### G LU1HR #### [facility] [address] [place] [address] Dr. Joanna Chen LYMPH # 1.8 103/ul Normal 1.2-3.8 [facility] [place] Comment on above: Performed By: #### G LU1HR #### [facility] [address] [place] [address] Dr. Joanna Chen Lymphocytes/100 WBC (Bld) 20.9 % Normal 20.5-60.0 [facility] [place] Comment on above: Performed By: #### G LU1HR #### [facility] [address] [place] [address] Dr. Joanna Chen MANUAL DIFF REQ NO Normal [facility] Comment on above: Performed By: #### G LU1HR #### [facility] [address] [place] [address] Dr. Joanna Chen MCH (RBC) [Entitic mass] 29.5 pg Normal 26.7-34.0 [facility] [place] Comment on above: Performed By: #### G LU1HR #### [facility] [address] [place] [address] Dr. Joanna Chen MCHC (RBC) [Mass/Vol] 33.2 g/dL Normal 29.9-35.2 [facility] [place] Comment on above: Performed By: #### G LU1HR #### [facility] [address] [place] [address] Dr. Joanna Chen MCV (RBC) [Entitic vol] 88.7 fL Normal 81.0-99.0 [facility] Comment on above: Performed By: #### G LU1HR #### [facility] [address] [place] [address] Dr. Joanna Chen MONO # 0.6 103/ul Normal 0.3-0.8 [facility] [place] Comment on above: Performed By: #### G LU1HR #### [facility] [address] [place] [address] Dr. Joanna Chen Monocytes/100 WBC (Bld) 7.2 % Normal 1.7-12.0 [facility] [place] Comment on above: Performed By: #### G LU1HR #### [facility] [address] [place] [address] Dr. Joanna Chen NEUT # 6.1 103/ul Normal 1.4-6.5 [facility] [place] Comment on above: Performed By: #### G LU1HR #### [facility] [address] [place] [address] Dr. Joanna Chen Neutrophils/100 WBC (Bld) 70.4 % Normal 43.0-75.0 [facility] Comment on above: Performed By: #### G LU1HR #### [facility] [address] [place] [address] Dr. Joanna Chen Platelet mean volume (Bld) [Entitic vol] 9.3 fL Critically low 9.5-13.5 [facility] [place] Comment on above: Performed By: #### G LU1HR #### [facility] [address] [place] [address] Dr. Joanna Chen PLT 241 103/ul Normal 150-450 [facility] Comment on above: Performed By: #### G LU1HR #### [facility] [address] [place] [address] Dr. Joanna Chen RBC 4.41 106/ul Normal 4.20-5.40 [facility] [place] Comment on above: Performed By: #### G LU1HR #### [facility] [address] [place] [address] Dr. Joanna Chen WBC 8.7 103/ul Normal 4.0-11.0 [facility] [place] Comment on above: Performed By: #### G LU1HR #### [facility] [address] [place] [address] Dr. Joanna Chen PREG QUANT HCGon 07-15-2021 HCG QUANT 38604 mIU/mL Normal [facility] Comment on above: Performed By: #### C DARRYN, PREGQNT #### [facility] [address] [place] [address] Dr. Joanna Chen HCG RANGE SEE BELOW Normal [facility] [place] Comment on above: Result Comment: 5-50 0-1 WEEK 40-300 1-2 WEEKS 100-1,000 2-3 WEEKS 500-6,000 3-4 WEEKS 5,000-200,000 1-2 MONTHS 10,000-100,000 2-3 MONTHS 3,000-50,000 2ND TRIMESTER 1,000-50,000 3RD TRIMESTER Performed By: #### C DARRYN, PREGQNT #### [facility] [address] [place] [address] Dr. Joanna Chen PROF 14(COMP METB)on 021 Albumin [Mass/Vol] 3.6 g/dL Normal 3.5-5.0 [facility] Comment on above: Performed By: #### C MP, PREGQNT #### [facility] [address] [place] [address] Dr. Joanna Chen Albumin/Globulin [Mass ratio] 1.0 {ratio} Normal [facility] Comment on above: Performed By: #### C MP, PREGQNT #### [facility] [address] [place] [address] Dr. Joanna Chen ALP [Catalytic activity/Vol] 43 U/L Normal 38-126 [facility] [place] Comment on above: Performed By: #### C MP, PREGQNT #### [facility] [address] [place], [place] [id number] Dr. Joanna Chen ALT [Catalytic activity/Vol] 21 U/L Normal 9-52 [facility] Comment on above: Performed By: #### C MP, PREGQNT #### [facility] [address] [place] [address] Dr. Joanna Chen Anion gap [Moles/Vol] 11.5 mmol/L Normal [facility] [place] Comment on above: Performed By: #### C MP, PREGQNT #### [facility] [address] [place] [address] Dr. Joanna Chen AST [Catalytic activity/Vol] 18 U/L Normal 14-36 [facility] Comment on above: Performed By: #### C MP, PREGQNT #### [facility] [address] [place] [address] Dr. Joanna Chen Bilirubin [Mass/Vol] 0.4 mg/dL Normal 0.2-1.3 [facility] Comment on above: Performed By: #### C MP, PREGQNT #### [facility] [address] [place] [address] Dr. Joanna Chen Calcium [Mass/Vol] 9.3 mg/dL Normal 8.4-10.2 [facility] Comment on above: Performed By: #### C MP, PREGQNT #### [facility] [address] [place] [address] Dr. Joanna Chen Chloride [Moles/Vol] 102 mmol/L Normal 98-107 [facility] Comment on above: Performed By: #### C MP, PREGQNT #### [facility] [address] [place] [address] Dr. Joanna Chen CO2 [Moles/Vol] 25.5 mmol/L Normal 22.0-30.0 [facility] Comment on above: Performed By: #### C MP, PREGQNT #### [facility] [address] [place] [address] Dr. Joanna Chen Creatinine [Mass/Vol] 0.54 mg/dL Normal 0.52-1.04 [facility] Comment on above: Performed By: #### C MP, PREGQNT #### [facility] [address] [address] [address] Joanna Chen EGFR-AF IRISH >60 Normal >=60 [facility] Comment on above: Performed By: #### C MP, PREGQNT #### [facility] [address] [address] [address] Joanna Chen EGFR-NON AF IRISH >60 Normal >=60 [facility] [place] Comment on above: Performed By: #### C MP, PREGQNT #### [facility] [address] [address] [address] Joanna Chen Globulin (S) [Mass/Vol] 3.7 g/dL Normal [facility] Comment on above: Performed By: #### C MP, PREGQNT #### [facility] [address] [place] [address] Dr. Joanna Chen Glucose [Mass/Vol] 90 mg/dL Normal 74-106 [facility] Comment on above: Performed By: #### C MP, PREGQNT #### [facility] [address] [address] [address] Joanna Chen Potassium [Moles/Vol] 4.0 mmol/L Normal 3.4-5.0 [facility] Comment on above: Performed By: #### C MP, PREGQNT #### [facility] [address] [address] [address] Joanna Chen Protein [Mass/Vol] 7.3 g/dL Normal 6.1-8.2 [facility] Comment on above: Performed By: #### C MP, PREGQNT #### [facility] [address] [address] [address] Joanna Chen Sodium [Moles/Vol] 135 mmol/L Critically low 137-145 [facility] Comment on above: Performed By: #### C MP, PREGQNT #### [facility] [address] [address] [address] Joanna Chen Urea nitrogen [Mass/Vol] 8.0 mg/dL Normal 7.0-17.0 [facility] Comment on above: Performed By: #### C DARRYN, PREGQNT #### [facility] [address] [address] [address] Joanna Chen Urea nitrogen/Creatinin e [Mass ratio] 14.8 mg/mg Normal [facility] Comment on above: Performed By: #### C MP, PREGQNT #### [facility] [address] [address] [address] Joanna Chen US PREG TVon 07-15-2021 [...] AGE BY LMP: 9 weeks, 2 days MIGEU BY LMP: 02/15/2022 AGE BY US CRL: 8 weeks, 6 days MIGUE BY US CRL: 02/18/2022 IMPRESSION: 1. Single live intrauterine . 2. Interval decrease in size of the small subchorionic hematoma. Electronically authenticated by: ORQUIDEA RING Date: 2021-07-15 10:52 Normal [facility] RPR QUANTon 07-06-2021 Rapid Plasma Reagin, Quant Non-Reactive Normal NonRea<1:1 [facility] Comment on above: Performed By: #### G LU1HR #### [facility] [address] [address] [address] Joanna Chen RUBELLA AB IGGon 07-06-2021 Rubella Antibodies, IgG 2.68 index Normal Immune >0.99 [facility] Comment on above: Result Comment: Non- immune <0.90 Equivocal 0.90 - 0.99 Immune >0.99 Performed By: #### C MP, PREGQNT #### [facility] [address] [address] [address] Joanna Chen HEP B SURFACE ANTIGEN SCREEN on 07-05-2021 HBsAg Screen Negative Normal Negative [facility] Comment on above: Performed By: #### H BSANS #### [facility] [address] [place] [address] Dr. Joanna Chen HEPATITIS C VIRUS AB W/ REFL EX QUANTon 07-05-2021 HCV AB <0.1 Normal 0.0-0.9 [facility] Comment on above: Performed By: #### H BSANS #### [facility] [address] [place] [address] Dr. Joanna Chen Interpretation: Comment Normal [facility] Comment on above: Result Comment: Nega tive Not infected with HCV, unless recent infection is suspected or other evidence exists to indicate HCV infection. Performed By: #### H BSANS #### [facility] [address] [place] [address] Dr. Joanna Chen HIV 1 AND 2 WITH REFLEXon HIV Screen 4th Generation wRfx Non-Reactive Normal Non Reactive [facility] Comment on above: Performed By: #### H IV12 #### [facility] [address] [place] [address] Dr. Joanna Chen CBC AUTO DIFFon 07-04-2021 BASO # 0.1 103/ul Normal 0.0-0.1 [facility] Comment on above: Performed By: #### G LU1HR #### [facility] [address] [place] [address] Dr. Joanna Chen Basophils/100 WBC (Bld) 0.5 % Normal 0.2-2.0 [facility] Comment on above: Performed By: #### G LU1HR #### [facility] [address] [place] [address] Dr. Joanna Chen EO # 0.1 103/ul Normal 0.0-0.7 [facility] Comment on above: Performed By: #### G LU1HR #### [facility] [address] [place] [address] Dr. Joanna Chen Eosinophils/100 WBC (Bld) 0.5 % Critically low 0.9-7.0 [facility] Comment on above: Performed By: #### G LU1HR #### [facility] [address] [place] [address] Dr. Joanna Chen Erythrocyte distribution width (RBC) [Ratio] 13.0 % Normal 11.0-15.0 [facility] Comment on above: Performed By: #### G LU1HR #### [facility] [address] [place] [address] Dr. Joanna Chen Hematocrit (Bld) [Volume fraction] 39.3 % Normal 36.0-48.0 [facility] Comment on above: Performed By: #### G LU1HR #### [facility] [address] [place] [address] Dr. Joanna Chen Hemoglobin (Bld) [Mass/Vol] 12.8 g/dL Normal 12.0-16.0 [facility] Comment on above: Performed By: #### G LU1HR #### [facility] [address] [place] [address] Dr. Joanna Chen IG # 0.04 10e3/ul Critically high 0.00-0.03 [facility] Comment on above: Performed By: #### G LU1HR #### [facility] [address] [place] [address] Dr. Joanna Chen IG % 0.4 % Normal 0.0-0.5 [facility] Comment on above: Performed By: #### G LU1HR #### [facility] [address] [place] [address] Dr. Joanna Chen LYMPH # 2.6 103/ul Normal 1.2-3.8 [facility] Comment on above: Performed By: #### G LU1HR #### [facility] [address] [place] [address] Dr. Joanna Chen Lymphocytes/100 WBC (Bld) 28.1 % Normal 20.5-60.0 [facility] Comment on above: Performed By: #### G LU1HR #### [facility] [address] [place] [address] Dr. Joanna Chen MANUAL DIFF REQ NO Normal [facility] Comment on above: Performed By: #### G LU1HR #### [facility] [address] [place] [address] Dr. Joanna Chen MCH (RBC) [Entitic mass] 29.2 pg Normal 26.7-34.0 [facility] Comment on above: Performed By: #### G LU1HR #### [facility] [address] [place] [address] Dr. Joanna Chen MCHC (RBC) [Mass/Vol] 32.6 g/dL Normal 29.9-35.2 [facility] Comment on above: Performed By: #### G LU1HR #### [facility] [address] [place] [address] Dr. Joanna Chen MCV (RBC) [Entitic vol] 89.7 fL Normal 81.0-99.0 [facility] Comment on above: Performed By: #### G LU1HR #### [facility] [address] [place] [address] Dr. Joanna Chen MONO # 0.8 103/ul Normal 0.3-0.8 [facility] Comment on above: Performed By: #### G LU1HR #### [facility] [address] [place] [address] Dr. Joanna Chen Monocytes/100 WBC (Bld) 8.4 % Normal 1.7-12.0 [facility] Comment on above: Performed By: #### G LU1HR #### [facility] [address] [place] [address] Dr. Joanna Chen NEUT # 5.7 103/ul Normal 1.4-6.5 [facility] Comment on above: Performed By: #### G LU1HR #### [facility] [address] [place] [address] Dr. Joanna Chen Neutrophils/100 WBC (Bld) 62.1 % Normal 43.0-75.0 [facility] Comment on above: Performed By: #### G LU1HR #### [facility] [address] [place] [address] Dr. Joanna Chen Platelet mean volume (Bld) [Entitic vol] 9.6 fL Normal 9.5-13.5 [facility] Comment on above: Performed By: #### G LU1HR #### [facility] [address] [address] [address] Joanna Chen PLT 277 103/ul Normal 150-450 [facility] Comment on above: Performed By: #### G LU1HR #### [facility] [address] [address] [address] Joanna Chen RBC 4.38 106/ul Normal 4.20-5.40 [facility] Comment on above: Performed By: #### G LU1HR #### [facility] [address] [address] [address] Joanna Chen WBC 9.2 103/ul Normal 4.0-11.0 [facility] Comment on above: Performed By: #### G LU1HR #### [facility] [address] [address] [address] Joanna Chen CULTURE URINEon 07-04-2021 CULTURE URINE Culture Observations : NO GROWTH. Normal [facility] Comment on above: Performed By: #### U RCX #### [facility] [address] [address] [address] Joanna Chen GLYCOHEMOGLOBIN A1Con 2020 ADA RECOMMENDATION ADA THERAPEUTIC TARG ET 6.0 - 7.0 ACTION SUGGESTED > 7.0 Normal [facility] Comment on above: Performed By: #### A 1C #### [facility] [address] [address] [address] Joanna Chen Glucose [Mass/Vol] 103 mg/dL Normal [facility] Comment on above: Performed By: #### A 1C #### [facility] [address] [address] [address] Joanna Chen HbA1c (Bld) [Mass fraction] 5.2 % Normal <=6.0 [facility] Comment on above: Performed By: #### A 1C #### [facility] [address] [place] [address] Dr. Joanna Chen TYPE AND SCREENon 07-04-2021 TYPE AND SCREEN Negative Normal [facility] Comment on above: Performed By: #### C MP, PREGQNT #### [facility] [address] [address] [address] Joanna Chen US PREG TVon 07-03-2021 [...] JESSENIA LOPEZ Date: 2021-07-03 07:14 Normal [facility] Coding Summary.on 03-31-2020 Coding Summary. CODING DATE: [facility] STATUS: Home (Routine DC) PAYOR: [place] ADMIT DX: REASON FOR VISIT DX: Z01.812 [...] Michael CphT Date Saved: 03/31/2020 10:26 am [facility] Physician Orderon 03-19-2020 Physician Order [id number]#1.00CD:127 Normal [facility] Ambulatory Clinical Summaryo n 02-05-2020 Ambulatory Clinical Summary {[id number]}CD:[id number] Normal [facility] Coding Summary.on 02-04-2020 Coding Summary. CODING DATE: 020 FINAL [facility] STATUS: Home (Routine DC) PAYOR: [place] APC DESCRIPTION 5301 Level 1 Upper GI Procedures ADMIT DX: REASON FOR VISIT DX: R10.13 Epigastric pain FINAL DX: PRINCIPAL: K29.70 Gastritis, unspecified, without bleeding SECONDARY: PYMT PROC APC STAT DESCRIPTION DOCTOR NAME DATE [id number] 5301 T Teddy HERNANDEZ MD 01/25/2020 phagogastroduodenoscopy, flexible, transoral; with biopsy, single or multiple 07494 Anesthesia for upper 01/25/2020 gastrointestinal endoscopic procedures, endoscope introduced proximal to duodenum; not otherwise specified NOTE: The code number assigned matches the documented diagnosis and / or procedure in the patient's chart. However, the narrative phrase printed from the coding software may appear abbreviated, or result in slightly different terminology. Revised Coded By: Constance Means Revised Date Saved: 02/04/2020 12:33 pm Normal [facility] IntraOperative Documentson 0 01-29-2020 IntraOperative Documents [id number]#1.00CD:127 [facility] Postoperative Documentson Postoperative Documents [id number]#1.00CD:127 [facility] Main OR Intraoperative Recor don 01-28-2020 Main OR Intraoperative Record IntraOp Document Type FT Summary Primary Physician: Teddy HERNANDEZ MD Finalized Date/Time: 01/28/20 09:11:27 Pt. Name: VERÓNICA RIVERS/Sex: 1995 Female Med Rec #: [id number] Physician: Teddy HERNANDEZ MD Financial #: [id number] Pt. Type: O Room/Bed: / Admit/Disch: 01/25/20 [...] Case Attendee Lorena Singleton RN Role Performed Coat Room Attendant - Primary Time In 01/25/20 10:06:00 Time [...] PreOp Antibiotic No Time Out SHAHZAD VALLE, eTddy Marie, Given Participants Seble BALDERAS, Areli Jones RN, Nura Rashid Jr. DO, Manuel Time Out Complete 01/25/20 10:07:00 Outcomes Met? Yes Last Modified By: Lorena Singleton RN 01/25/20 10:09:13 Post-Care Text: The patient is free from signs and symptoms of injury caused by extraneous objects Allergy Information FT Pre-Care Text: Verifies allergies Entry 1 Allergies Reviewed? Yes Allergies Reviewed Self/Patient With Outcomes Met? Yes Last Modified By: Lorena Singleotn RN 01/25/20 09:53:19 Post-Care Text: The patient [...] and tissue Entry 1 Skin Integrity Intact, Capac, Warm, and Skin Abnormality No Dry Outcomes [...] Comments: REPORT GIVEN TO PACU NURSE. SHARATH DUTTAsprayer hand Administration FT Pre-Care Text: Verifies allergies, administers [...] safely administered during the perioperative period For Ninfa please see scanned medication reconcilliation form for [...] 01/25/20 10:25 Zabrina Mota CST 01/28/20 09:11 [facility] Consenton 01-25-2020 Consent [id number]#1.00CD:127 Normal [facility] Consent for Treatmenton 01-13 Consent for Treatment [id number]#1.00CD:127 Normal [facility] Discharge Instructionson Discharge Instructions [id number]#1.00CD:127 [facility] History and Physicalon 01-24 History and Physical [id number]#1.00CD:127 Normal [facility] History and Physical Patient: VERÓNICA RIVERS Age: 24 years Sex: Female : 1995 Associated Diagnoses: None Author: Teddy HERNANDEZ MD Subjective no changes to H & P Normal [facility] Comment on above: Result Comment: Elec tronically Signed By: Teddy HERNANDEZ MD\.br\Date and Time Signed: 01/25/20 09:47 EDT Inpatient Patient Summaryon 01-25-2020 Inpatient Patient Summary [place] [id number] [facility] Clinical Discharge Instructions PERSON INFORMATION Name: VERÓNICA RIVERS PHYSICIANS Admitting Physician: Teddy HERNANDEZ MD Attending Physician: Teddy HERNANDEZ MD PCP: Marcello Byrd MD Discharge Diagnosis: Antral gastritis Comment: PATIENT EDUCATION INFORMATION Instructions: Medication Leaflets: Follow up: With: Address: When: Teddy HERNANDEZ [address] [place] [address], [address], [place] [address] [facility] (2) Within 7 to 10 days MEDICATION LIST Medications to Continue with No Changes Other Medications ethinyl estradiol-norethindrone (Nortrel oral tablet) 1 Tablets By Mouth every day. Comment: [facility] IntraOperative Documentson 0 01-25-2020 IntraOperative Documents [id number]#1.00CD:127 [facility] IntraOperative Documents [id number]#1.00CD:127 [facility] Main OR PACU I Recordon 01-13 Main OR PACU I Record PACU Phase I Document Type FT Summary Primary Physician: Teddy HERNANDEZ MD Finalized Date/Time: 01/25/20 10:57:36 Pt. Name: VERÓNICA RIVERS /Sex: 1995 Female Med Rec #: [id number] Physician: Teddy HERNANDEZ MD Financial #: [id number] Pt. Type: O Room/Bed: / Admit/Disch: 01/25/20 [...] By: Angela Meza RN 01/25/20 10:57 Normal [facility] Main OR Preoperative Recordo n 01-25-2020 Main OR Preoperative Record Holding Area Document Type FT Summary Primary Physician: Teddy HERNANDEZ MD Finalized Date/Time: 01/25/20 09:50:47 Pt. Name: VERÓNICA RIVERS Filipe Keller/Sex: 1995 Female Med Rec #: [id number] Physician: Teddy HERNANDEZ MD Financial #: [id number] Pt. Type: O Room/Bed: / Admit/Disch: 01/25/20 [...] By: Krystal Valdez RN 01/25/20 09:50 Normal [facility] Monitor Recordon 01-25-2020 Monitor Record [id number]#1.00CD:127 Normal [facility] Operative Reporton 0 Operative Report Date of [...] in good condition. Nima Stevens Dictated: 01/25/2020 #[id number] Typed: 01/25/2020 #[id number] cc: Nima Higginbtoham M.D. [facility] Comment on above: Result Comment: Elec tronically Signed By: Teddy HERNANDEZ MD\Date and Time Signed: 01/25/20 12:21 EDT Patient Education - Texton 0 01-25-2020 Patient Education - Text [facility] Progress Note-Physicianon Progress Note-Physician Patient: VERÓNICA [...] All Problems Chronic tonsillitis / SNOMED CT 275989829 / Confirmed Abdominal pain, epigastric / SNOMED CT 329037262 / Confirmed Abdominal pain, left upper quadrant / SNOMED CT 095072412 / Confirmed Loss of appetite / SNOMED CT 841550511 / Confirmed Migraine / SNOMED CT 97749324 / Confirmed Nausea in adult / SNOMED CT 1029600022 / Confirmed Patellofemoral syndrome / SNOMED CT 3602909335 / Confirmed Raynaud's syndrome / SNOMED CT 239637400 / Confirmed, Active Problems (8) Abdominal pain, epigastric Abdominal pain, left upper quadrant Chronic tonsillitis Loss of appetite Migraine Nausea in adult Patellofemoral syndrome Raynaud's syndrome Histories Past Medical History: No active or resolved past medical history items have been selected or recorded. Family History: No family history items have been selected or recorded. Procedure history: Arthroscopy of knee ([id number]). Comments: 12/25/2019 14:10 EDT - Bryanshahla SAÚLRoxanne Fatmata 2014 or 2016 Social History Social & [...] review: No qualifying data available . Plan [place] [employer] (ASA) physical status classification: Class II. Anesthetic Preoperative Plan Anesthesia: Monitored anesthesia care and general anesthesia if required.. Anesthetic plan, risks, benefits, and alternatives discussed with the patient and/or family. Pt. and/or family present and agree to proceed as planned.. [facility] Comment on above: Result Comment: Elec tronically Signed By: Manuel Lyman Jr., DO\.jose de jesus\Date and Time Signed: 01/25/20 09:57 EDT Vital Signs Date Time Vital Sign Value Performing Clinician Bishop guan 05-16-2025 15:20-0400 Body mass index (BMI) [Ratio] 29.76 kg/m2 Ramos Smith NP Work Phone: [facility] 05-16-2025 15:20-0400 Body weight 86.18 kg Ramos Smith NP Work Phone: [facility] 05-16-2025 15:20-0400 Diastolic blood pressure 70 mm[Hg] Ramos Flnaneryerly TIMBER GIRDLER Work Phone: [facility] 05-16-2025 15:20-0400 Systolic blood pressure 110 mm[Hg] Ramos Flanneryerly TIMBER GIRDLER Work Phone: [facility] 04-16-2025 09:30-0400 Body mass index (BMI) [Ratio] 28.51 kg/m2 Arcadio Ruth DO Work Phone: [facility] 04-16-2025 09:30-0400 Body weight 82.56 kg Arcadio Ruth DO Work Phone: [facility] 04-16-2025 09:30-0400 Diastolic blood pressure 70 mm[Hg] Arcadio Ruth DO Work Phone: [facility] 04-16-2025 09:30-0400 Systolic blood pressure 120 mm[Hg] Arcaido Ruth DO Work Phone: [facility] 03-27-2025 15:35-0400 Body mass index (BMI) [Ratio] 28.05 kg/m2 Arcadio Ruth DO Work Phone: [facility] 03-27-2025 15:35-0400 Body weight 81.25 kg Arcadio Ruth DO Work Phone: [facility] 03-27-2025 15:35-0400 Diastolic blood pressure 70 mm[Hg] Arcadio Ruth DO Work Phone: [facility] 03-27-2025 15:35-0400 Systolic blood pressure 118 mm[Hg] Arcadio Ruth DO Work Phone: [facility] 02-20-2025 15:30-0400 Body mass index (BMI) [Ratio] 27.22 kg/m2 Arcadio Ruth DO Work Phone: [facility] 02-20-2025 15:30-0400 Body weight 78.83 kg Arcadio Ruth DO Work Phone: [facility] 02-20-2025 15:30-0400 Diastolic blood pressure 70 mm[Hg] Arcadio Ruth DO Work Phone: [facility] 02-20-2025 15:30-0400 Systolic blood pressure 120 mm[Hg] Arcadio Ruth DO Work Phone: [facility] 01-31-2025 15:00-0400 Body height 170.2 cm [facility] 01-31-2025 14:59-0400 Body mass index (BMI) [Ratio] 26.66 kg/m2 [facility] Nurse [facility] 01-31-2025 14:59-0400 Body weight 77.[address] [facility] Nurse [facility] 01-31-2025 14:59-0400 Diastolic blood pressure 64 mm[Hg] [facility] Nurse [facility] 01-31-2025 14:59-0400 Systolic blood pressure 122 mm[Hg] Nom Nurse [facility] 08-30-2024 08:40-0500 Body mass index (BMI) [Ratio] 27.76 kg/m2 Arcadio Ruth DO Work Phone: [facility] 08-30-2024 08:40-0500 Body weight 78.02 kg Arcadio Ruth DO Work Phone: [facility] 08-30-2024 08:40-0500 Diastolic blood pressure 82 mm[Hg] Arcadio Ruth DO Work Phone: [facility] 08-30-2024 08:40-0500 Systolic blood pressure 120 mm[Hg] Arcadio Ruth DO Work Phone: [facility] 09-20-2023 09:51-0500 Body weight 89.41 kg Arcadio Ruth DO Work Phone: [facility] 09-20-2023 09:51-0500 Diastolic blood pressure 70 mm[Hg] Arcadio Rtuh DO Work Phone: [facility] 09-20-2023 09:51-0500 Systolic blood pressure 114 mm[Hg] Arcadio Ruth DO Work Phone: [facility] Encounters Encounter Date Encounter Type Care Provider Facility Start: 05-16-2025 End: 05-16-2025 flow sheet Ramos Smith TIMBER GIRDLER Work Phone: [facility] Comment on above: 24 weeks gestation o f ([facility]); Second trimester ([facility]); Subchorionic hematoma in first trimester, single or unspecified fetus ([facility]); Diabetes mellitus screening Start: 05-16-2025 End: 05-16-2025 ambulatory RAMOS SMITH Not Available Start: 05-16-2025 End: 05-16-2025 Bamboo flowsheet Ramos Smith TIMBER GIRDLER Work Phone: [facility] Start: 05-16-2025 End: 05-16-2025 Bamboo flowsheet Ramos Smith TIMBER GIRDLER Work Phone: [facility] Start: 04-16-2025 End: 04-16-2025 flow sheet Arcadio Ruth DO Work Phone: [facility] Comment on above: 20 weeks gestation o f ([facility]); Second trimester ([facility]); Subchorionic hematoma in first trimester, single or unspecified fetus ([facility]); Request for sterilization Start: 04-16-2025 End: 04-16-2025 ambulatory ARCADIO RUTH Not Available Start: 03-27-2025 End: 03-27-2025 flow sheet Arcadio Ruth DO Work Phone: [facility] Comment on above: 17 weeks gestation o f ([facility]); Subchorionic hematoma in first trimester, single or unspecified fetus ([facility]); Second trimester ([facility]); Screening, , for anatomic survey ([facility]); Exposure to STD; Vaginal discharge; Nausea and vomiting, unspecified vomiting type Start: 03-27-2025 End: 03-27-2025 ambulatory ARCADIO RUTH Not Available Start: 03-27-2025 End: 03-27-2025 Bamboo flowsheet Arcadio Ruth DO Work Phone: [facility] Start: 03-27-2025 End: 03-29-2025 Bamboo flowsheet Arcadio Ruth DO Work Phone: [facility] Start: 03-27-2025 End: 03-29-2025 External Result Encounter Arcadio Ruth DO Work Phone: [facility] Unsolicited Start: 02-25-2025 End: 02-25-2025 Clinisync Result Encounter Arcadio Ruth DO Work Phone: [facility] Unsolic[facility] Start: 02-25-2025 End: 02-25-2025 Clinisync Result Encounter Arcadio Ruth DO Work Phone: [facility] Unsolicited Start: 02-20-2025 End: 02-20-2025 flow sheet Arcadio Ruth DO Work Phone: [facility] Comment on above: First trimester preg nikita ([facility]); 12 weeks gestation of ([facility]) Start: 02-20-2025 End: 02-20-2025 ambulatory ARCADIO RUTH Not Available Start: 02-20-2025 End: 02-20-2025 Bamboo flowsheet Arcadio Ruth DO Work Phone: [facility] Start: 02-20-2025 End: 02-20-2025 Bamboo flowsheet Arcadio Ruth DO Work Phone: [facility] Start: 02-05-2025 End: 02-05-2025 Clinisync Result Encounter Arcadio Ruth DO Work Phone: [facility] Unsolicited Start: 02-05-2025 End: 02-05-2025 Clinisync Result Encounter Arcadio Ruth DO Work Phone: [facility] Unsolicited Start: 01-31-2025 End: 01-31-2025 Office outpatient visit 5 minutes [facility] Nurse [facility] Comment on above: GA: 9w3d Start: 01-31-2025 End: 01-31-2025 ambulatory ARCADIO RUTH Not Available Start: 08-30-2024 End: 08-30-2024 Bamboo flowsheet Arcadio Ruth DO Work Phone: [facility] Start: 08-30-2024 End: 09-05-2024 Bamboo flowsheet Arcadio Ruth DO Work Phone: [facility] Start: 08-30-2024 End: 09-05-2024 Clinisync Result Encounter Arcadio Ruth DO Work Phone: [facility] Unsolicited Start: 08-30-2024 End: 08-30-2024 ambulatory ARCADIO RUTH Not Available Start: 08-30-2024 End: 08-30-2024 Patient encounter procedure Arcadio Ruth DO Work Phone: [facility] Start: 08-30-2024 End: 08-30-2024 Periodic preventive med est patient 18-39 yrs Arcadio Ruth DO Work Phone: [facility] Comment on above: Well woman exam with routine gynecological exam; Menorrhagia with irregular cycle Start: 09-20-2023 End: 09-20-2023 flow sheet Arcadio Ruth DO Work Phone: [facility] Comment on above: Second trimester pre gnancy; Placental abnormality in second trimester Start: 05-26-2022 End: 05-26-[address] ARCADIO MIRANDA Facility:[facility] Start: 02-08-2022 End: 02-08-2022 ambulatory NONE LISTED REQUEST Facility:[facility] Start: 02-01-2022 End: 02-04-2022 Evaluation and management of inpatient DR ARCADIO MIRANDA Facility:[facility] Start: 01-27-2022 Evaluation and manag ement of inpatient NONE LISTED REQUEST Facility:[facility] Start: 01-21-2022 End: 01-21-[address] ARCADIO MIRANDA Facility:[facility] Start: 12-21-2021 End: 12-22-[address] ARCADIO MIRANDA Facility:[facility] Start: 10-30-2021 End: 10-31-[address] ARCADIO MIRANDA Facility:[facility] Start: 10-19-2021 End: 10-20-[address] JESSENIA LOPEZ Facility:[facility] Start: 10-01-2021 End: 10-02-2021 ambulatory NONE LISTED REQUEST Facility:[facility] Start: 07-30-2021 End: 07-30-2021 ambulatory NONE LISTED REQUEST Facility:[facility] Start: 07-27-2021 End: 07-28-[address] ARCADIO MIRANDA Facility:[facility] Start: 07-15-2021 End: 07-15-[address] ORQUIDEA RING Facility:[facility] Start: 07-04-2021 End: 07-05-[address] ARCADIO MIRANDA Facility:[facility] Start: 07-02-2021 End: 07-03-[address] JESSENIA LOPEZ Facility:[facility] Procedures Date Procedure Procedure Detail Performing Clinician Start: 05-16-2025 Urnls dip stick/tabl et rgnt non-auto w/o micrscp Ramos Smith TIMBER GIRDLER Work Phone: Start: 04-16-2025 Urnls dip stick/tabl et rgnt non-auto w/o micrscp Arcadio Ruth DO Work Phone: Start: 03-27-2025 RECURRENT VAGINITIS (HTRX) Arcadio Ruth DO Work Phone: Start: 03-27-2025 Urnls dip stick/tabl et rgnt non-auto w/o micrscp Arcadio Ruth DO Work Phone: Start: 02-25-2025 Us uterus l imited 1/> fetuses Arcadio Ruth DO Work Phone: Start: 02-20-2025 Urnls dip stick/tabl et rgnt non-auto w/o micrscp Arcadio Ruth DO Work Phone: Start: 02-05-2025 ALL CBC WITH AUTO DIFF Arcadio Ruth DO Work Phone: Start: 01-31-2025 End: 01-31-2025 Urnls dip stick/tablet rgnt non-auto w/o micrscp Arcadio Miranda DO Work Phone: Start: 08-30-2024 IGP,APTIMA HPV,AGE GDLN Arcadio Miranda DO Work Phone: Start: 09-20-2023 Urnls dip stick/tabl et rgnt non-auto w/o micrscp Arcadio Carrerao DO Work Phone: Start: 02-04-2022 Introduction of Othe r Therapeutic Substance into Spinal Canal, Percutaneous Approach DR ARCADIO MIRANDA Start: 02-01-2022 Extraction of Produc ts of Conception, Low Cervical, Open Approach DR ARCADIO MIRANDA Start: 02-01-2022 Reposition Products of Conception, External Approach DR ARCADIO MIRANDA Plan of Treatment Date Care Activity Detail Author Start: 09-03-2025 End: 09-03-2025 Patient encounter procedure [facility] Start: 06-06-2025 End: 06-06-2025 Patient encounter procedure 06/06/2025 3:20 PM EDT Routine [facility] [address] [phone] Yoli Tan PA [address] [place] [address] [facility] Start: 05-16-2025 End: 05-16-2025 Patient encounter procedure [facility] Comment on above: Arrived Start: 05-16-2025 End: 05-16-2026 CBC panel - Blood by Automated count CBC Lab Routine Diabetes mellitus screening Expected: 05/16/2025 (Approximate), Expires: 05/16/2026 [facility] Work Phone: Comment on above: Expected: 05/16/2025 (Approximate), Expires: 05/16/2026 Start: 05-16-2025 End: 05-16-2026 Measurement of glucose 1 hour after glucose challenge for glucose tolerance test Glucose tolerance, 1 hour Lab Routine Diabetes mellitus screening Expected: 05/16/2025 (Approximate), Expires: 05/16/2026 [facility] Comment on above: Expected: 05/16/2025 (Approximate), Expires: 05/16/2026 Start: 04-16-2025 End: 04-16-2025 Patient encounter procedure 04/16/2025 9:40 AM EDT Routine [facility] [address] [address] Arcadio Miranda, DO [address] [place] [address] [facility] Start: 04-16-2025 End: 04-16-2025 Professional / ancillary services management 04/16/2025 8:30 AM EDT Ancillary Procedure [facility] [address] [address] [facility] Start: 03-27-2025 End: 03-27-2025 Patient encounter procedure 03/27/2025 3:10 PM EDT Routine [facility] [address] [place] [address] Arcadio Miranda, DO [address] [place] [address] Arrived [facility] Comment on above: Arrived Start: 03-27-2025 End: 04-27-2025 Alpha fetoprotein, maternal Alpha fetoprotein, maternal Lab Routine 17 weeks gestation of ([facility]) Second trimester ([facility]) Expected: 03/27/2025 (Approximate), Expires: 04/27/2025 [facility] Comment on above: Expected: 03/27/2025 (Approximate), Expires: 04/27/2025 Start: 03-27-2025 End: 06-27-2025 US for US OB 14+ weeks anatomy scan Imaging Routine Screening, , for anatomic survey ([facility]) Expected: 03/27/2025, Expires: 06/27/2025 [facility] Comment on above: Expected: 03/27/2025 , Expires: 06/27/2025 Start: 03-20-2025 End: 03-20-2025 Patient encounter procedure 03/20/2025 3:10 PM EDT Routine [facility] [address] [place] [address] Arcadio Miranda, [address] [place] [address] [facility] Start: 02-20-2025 End: 02-20-2025 Patient encounter procedure [facility] Comment on above: Arrived Start: 01-31-2025 End: 01-31-2026 ABO/Rh ABO/Rh Lab Routine Missed menses , unspecified gestational age ([facility]) Expected: 01/31/2025 (Approximate), Expires: 01/31/2026 [facility] Comment on above: Expected: 01/31/2025 (Approximate), Expires: 01/31/2026 Start: 01-31-2025 End: 01-31-2026 Blood type and Indirect antibody screen panel - Blood Type and screen Lab Routine Missed menses , unspecified gestational age ([facility]) Expected: 01/31/2025 (Approximate), Expires: 01/31/2026 [facility] Comment on above: Expected: 01/31/2025 (Approximate), Expires: 01/31/2026 Start: 01-31-2025 End: 01-31-2026 Drugs of abuse panel - Urine by Screen method Rapid drug screen, urine Lab Routine , unspecified gestational age ([facility]) Encounter for supervision of normal first in first trimester ([facility]) Expected: 01/31/2025 (Approximate), Expires: 01/31/2026 [facility] Comment on above: Expected: 01/31/2025 (Approximate), Expires: 01/31/2026 Start: 01-24-2025 End: 04-26-2025 US Pelvis transvaginal US OB transvaginal Imaging Routine Missed menses Expected: 01/24/2025, Expires: 04/26/2025 [facility] Work Phone: Comment on above: Expected: 01/24/2025 , Expires: 04/26/2025 Start: 10-08-2023 End: 09-20-2024 US for US OB PLACENTA W US OB TRANSVAGINAL Imaging Routine Placental abnormality in second trimester Expected: 10/08/2023 (Approximate), Expires: 09/20/2024 [facility] Work Phone: Comment on above: Expected: 10/08/2023 (Approximate), Expires: 09/20/2024 Start: 10-04-2023 End: 10-04-2023 Patient encounter procedure 10/04/2023 2:10 PM EST Routine [facility] [address] [place] [address] Arcadio Miranda DO [address] [place] [address] [facility] Bacteria identified in Urine by Culture Urine culture Microbiology Routine Missed menses Ordered: 01/31/2025 [facility] Comment on above: Ordered: 01/31/2025 CBC W Auto Different ial panel - Blood CBC and differential Lab Routine Missed menses , unspecified gestational age ([facility]) Ordered: 01/31/2025 [facility] Comment on above: Ordered: 01/31/2025 CHLAMYDIA TRACHOMATI S (GENITO/STI) CHLAMYDIA TRACHOMATIS (GENITO/STI) Lab Routine Exposure to STD Ordered: 03/27/2025 [facility] Comment on above: Ordered: 03/27/2025 Cytology Cervical or vaginal smear or scraping study Pap Smear Pathology and Cytology Routine Well woman exam with routine gynecological exam Ordered: 08/30/2024 [facility] Work Phone: Comment on above: Ordered: 08/30/2024 Hemoglobin A1c/Hemoglobin.total in Blood Hemoglobin A1c Lab Routine Missed menses , unspecified gestational age ([facility]) Ordered: 01/31/2025 [facility] Comment on above: Ordered: 01/31/2025 Hepatitis B virus surface Ag [Presence] in Serum or Plasma by Immunoassay Hepatitis B surface antigen Lab Routine Missed menses , unspecified gestational age ([facility]) Ordered: 01/31/2025 [facility] Comment on above: Ordered: 01/31/2025 Hepatitis C virus Ab [Presence] in Serum or Plasma by Immunoassay Hepatitis C antibody Lab Routine Missed menses , unspecified gestational age ([facility]) Ordered: 01/31/2025 [facility] Comment on above: Ordered: 01/31/2025 HIV-1/HIV-2 antigen/antibody combination immunoassay HIV-1 and HIV-2 antibodies Lab Routine Missed menses , unspecified gestational age ([facility]) Ordered: 01/31/2025 [facility] Comment on above: Ordered: 01/31/2025 Neisseria gonorrhoea e DNA [Presence] in Unspecified specimen by MANINDER with probe detection Neisseria gonorrhea DNA probe, direct Lab Routine Exposure to STD Ordered: 03/27/2025 [facility] Comment on above: Ordered: 03/27/2025 Reagin Ab [Presence] in Serum by RPR RPR Lab Routine Missed menses , unspecified gestational age ([facility]) Ordered: 01/31/2025 [facility] Comment on above: Ordered: 01/31/2025 Rubella antibody, IgG Rubella an tibody, IgG Lab Routine Missed menses , unspecified gestational age ([facility]) Ordered: 01/31/2025 [facility] Comment on above: Ordered: 01/31/2025 SURESWAB(R) ADVANCED VAGINITIS PLUS, TMA SURESWAB(R) ADVANCED VAGINITIS PLUS, TMA Pathology and Cytology Routine Vaginal discharge Ordered: 03/27/2025 [facility] Work Phone: Comment on above: Ordered: 03/27/2025 US Pelvis transvaginal US OB tra nsvaginal Imaging Routine Missed menses 01/31/2025 2:30 PM EDT [facility] Payers Date Payer Category Payer [employer] [facility] [id number] 2022 Unknown [employer] [id number] 2022-Present [phone] [address] [address] [place] [address] [id number] 2022 Unknown [id number] 1997 Unknown [id number] 2.16.840.1.176376.3.579 .2.593 1997 Unknown [id number] 2.16.840.1.582581.3.579 .2.593 1997 Unknown [id number] 2.16.840.1.247194.3.579 .2.593 1997 Unknown [id number] 2.16.840.1.032101.3.579 .2.593 1997 Unknown [id number] 2.16.840.1.641448.3.579 .2.593 1997 Unknown [id number] 2.16.840.1.033523.3.579 .2.593 1997 Unknown [id number] 2.16.840.1.375208.3.579 .2.593 1997 Unknown [id number] 2.16.840.1.304731.3.579 .2.593 1997 Unknown [id number] 2.16.840.1.640848.3.579 .2.593 1997 Unknown [id number] 2.16.840.1.764007.3.579 .2.593 1997 Unknown [id number] 2.16.840.1.707341.3.579 .2.593 1997 Unknown [id number] 2.16.840.1.331945.3.579 .2.593 1997 Unknown [id number] 2.16.840.1.198147.3.579 .2.593 1997 Unknown [id number] 2.16.840.1.761166.3.579 .2.1259 1997 Unknown [id number] 2.16.840.1.576035.3.579 .2.1259 1997 Unknown [id number] 2.16.840.1.178131.3.579 .2.9 1997 Unknown [id number] 2.16.840.1.918233.3.579 .2.9 1997 Unknown [id number] 2.16.840.1.863548.3.579 .2.9 1997 Unknown [id number] 2.16.840.1.694017.3.579 .2.9 1997 Unknown [id number] 2.16.840.1.384897.3.579 .2.1259 1997 Unknown [id number] 2.16.840.1.559985.3.579 .2.1259 1959 Self-pay 1959 Unknown [id number] 1959 Unknown [id number] 1959 Unknown [id number] Unknown [id number] 2.16.840.1.929879.3.579 .2.593 Social History Date Type Detail Facility Tobacco smoking stat [facility] Tobacco smoking consumption unknown [facility] Start: 04-06-2023 [facility] Start: 1995 Sex Assigned At Female [facility] Start: 04-20-2023 Gender identity Identifies as female gender (finding) [facility] Start: 04-20-2023 Sexual orientation Heterosexual (fin ding) [facility] Start: 12-28-2023 Tobacco smoking stat [facility] Never smoked tobacco [facility] Start: 12-28-2023 Tobacco use and exposure Smokeless t obacco non-user [facility] Start: 02-06-2024 End: 05-16-2025 Alcoholic beverage intake Ex-drinker (finding) [facility] Start: 12-28-2023 End: 08-30-2024 History of Social function [facility] Start: 12-28-2023 End: 08-30-2024 Tobacco use panel [facility] Clinical Notes 02-01-2022 to 05-16-2025 Ramos Smith NP - 05/16/2025 3:00 PM Tere Myers, SAÚL - 04/16/2025 9:40 AM Eleanor Smith NP - 03/27/2025 3:10 PM Tere Myers, SAÚL - 02/20/2025 3:10 PM EDT Note Date & Type Note Facility 05-16-2025 History of Presen t illness Narrative Reason for Appointment: Patient ID: Verónica Decker is a 30 y.o. female who presents for Routine Visit Patient presents today for Return OB appointment. MEDICATIONS Current Outpatient Medications Medication Instructions amoxicillin-clavulanate (Augmentin) 875-125 MG tablet 875 mg, Every 12 hours magnesium oxide (MAG-OX) 400 mg, Daily Vit-Fe [...] nursing note reviewed. Exam conducted with a grave cleaner present. Vitals: Estimated body mass index is 29.76 kg/m as calculated from the following: Height as of 01/31/25: 5' 7 . Weight as of this encounter: 190 lb. BP: 110/70 Patient's last menstrual period was 11/26/2024. ASSESSMENT & PLAN ICD-10-CM 1. 24 weeks gestation of ([facility]) Z3A.24 POCT urinalysis dipstick manually resulted 2. Second trimester ([facility]) Z34.92 POCT urinalysis dipstick manually resulted 3. Subchorionic hematoma in first trimester, single or unspecified fetus ([facility]) O41.8X10 O46.8X1 4. Diabetes mellitus screening Z13.1 CBC Glucose tolerance, 1 hour CBC Glucose tolerance, 1 hour Return OB: Patient presents today for a routine obstetrics appointment. Patient is currently 24w3d . Patient states she is doing well but has complaints of being tired due to current . Patient has verbalizes frequent movement. labor precautions was discussed/given and patient was instructed to perform kick counts three times a day. Patient was given 1 hour Glucose test and CBC. Orders Placed This Encounter Procedures CBC Glucose tolerance, 1 hour POCT urinalysis dipstick manually resulted Follow Up: Patient is to return to office in 3 week for routine OB appointment. Documented by Lola Gonzalez LPN on behalf of: Ramos Smith NP documented in this encounter [facility] 04-16-2025 History of Presen t illness Narrative Reason for Appointment: Patient ID: Verónica Decker is a 29 y.o. female who presents for Routine Visit Patient presents today for Return OB appointment. MEDICATIONS Current Outpatient Medications Medication Instructions magnesium oxide (MAG-OX) 400 mg, Daily ondansetron ODT (ZOFRAN-ODT) 4 mg, Oral, Every 6 hours PRN Vit-Fe Fumarate-FA ( VITAMIN PO) Take by [...] nursing note reviewed. Exam conducted with a grave cleaner present. Vitals: Estimated body mass index is 28.51 kg/m as calculated from the following: Height as of 01/31/25: 5' 7 . Weight as of this encounter: 182 lb. BP: 120/70 Patient's last menstrual period was 11/26/2024. ASSESSMENT & PLAN ICD-10-CM 1. 20 weeks gestation of ([facility] Z3A.20 POCT urinalysis dipstick manually resulted 2. Second trimester ([facility]) Z34.92 POCT urinalysis dipstick manually resulted 3. Subchorionic hematoma in first trimester, single or unspecified fetus ([facility]) O41.8X10 POCT urinalysis dipstick manually resulted O46.8X1 4. Request for sterilization Z30.2 Patient presents today for a routine obstetrics appointment. Patient is currently 20w1d with a Estimated Date of Delivery: 09/02/25. Pt had anatomy scan prior to appt. Pt desires sterilization with section. Pt to return in 4 weeks for scheduled OB appt. Documented by Linda Myers LPN on behalf of: Arcadio Miranda DO documented in this encounter [facility] 03-27-2025 History of Presen t illness Narrative Reason for Appointment: Patient ID: Verónica Decker is a 29 y.o. female who presents for No chief complaint on file. Patient presents today for Return OB appointment. MEDICATIONS Current Outpatient Medications Medication Instructions magnesium oxide (MAG-OX) 400 mg, Daily ondansetron ODT (ZOFRAN-ODT) 4 mg, Oral, Every 6 hours PRN Vit-Fe Fumarate-FA ( VITAMIN PO) Take by [...] nursing note reviewed. Exam conducted with a grave cleaner present. Vitals: Estimated body mass index is 28.05 kg/m as calculated from the following: Height as of 01/31/25: 5' 7 . Weight as of this encounter: 179 lb 1.9 oz. BP: 118/70 Patient's last menstrual period was 11/26/2024. ASSESSMENT & PLAN ICD-10-CM 1. 17 weeks gestation of ([facility]) Z3A.17 POCT urinalysis dipstick manually resulted Alpha fetoprotein, maternal Alpha fetoprotein, maternal 2. Subchorionic hematoma in first trimester, single or unspecified fetus ([facility]) O41.8X10 O46.8X1 3. Second trimester ([facility]) Z34.92 POCT urinalysis dipstick manually resulted Alpha fetoprotein, maternal Alpha fetoprotein, maternal 4. Screening, , for anatomic survey ([facility]) Z36.89 US OB 14+ weeks anatomy scan US OB 14+ weeks anatomy scan 5. Exposure to STD Z20.2 CHLAMYDIA TRACHOMATIS (GENITO/STI) Neisseria gonorrhea DNA probe, direct 6. Vaginal discharge N89.8 SURESWAB(R) ADVANCED VAGINITIS PLUS, TMA 7. Nausea and vomiting, unspecified vomiting type R11.2 ondansetron ODT (Zofran-ODT) 4 MG disintegrating tablet Return OB: Patient presents today for a routine obstetrics appointment. Patient is currently 17w2d . Patient states she is doing well but has complaints of being tired due to current . Patient has verbalizes frequent movement. labor precautions was discussed/given and patient was instructed to perform kick counts three times a day. Orders Placed This Encounter Procedures US OB 14+ weeks anatomy scan CHLAMYDIA TRACHOMATIS (GENITO/STI) Neisseria gonorrhea DNA probe, direct Alpha fetoprotein, maternal POCT urinalysis dipstick manually resulted Follow Up: Patient is to return to office in 3 week for routine OB appointment. Documented by Ramos Smith NP on behalf of: Arcadio Miranda DO documented in this encounter [facility] 02-20-2025 History of Presen t illness Narrative [...] nursing note reviewed. Exam conducted with a grave cleaner present. Vitals: Estimated body mass index is 27.22 kg/m as calculated from the following: Height as of 01/31/25: 5' 7 . Weight as of this encounter: 173 lb 12.8 oz. BP: 120/70 Patient's last menstrual period was 11/26/2024. ASSESSMENT & PLAN ICD-10-CM 1. First trimester ([facility]) Z34.91 POCT urinalysis dipstick manually resulted 2. 12 weeks gestation of ([facility]) Z3A.12 POCT urinalysis dipstick manually resulted New [...] or undercooked meat, and stay away from [facility]. Patient has been consulted regarding any further do's and don'ts of . Patient voiced understanding and all questions and concerns were answered. Orders Placed This Encounter Procedures POCT urinalysis dipstick manually resulted Follow Up: Patient is to return in 4 weeks for routine OB appointment. Documented by Linda Myers LPN on behalf of: Yoli Tan PA-C documented in this encounter [facility] 01-31-2025 History of Presen t illness Narrative [...] dipstick manually resulted , unspecified gestational age ([facility]) - Type and screen; Future - ABO/Rh; Future - CBC and differential - Hemoglobin A1c - RPR - Rubella antibody, IgG - Hepatitis B surface antigen - Hepatitis C antibody - HIV-1 and HIV-2 antibodies - Rapid drug screen, urine; Future Encounter for supervision of normal first in first trimester ([facility]) - Rapid drug screen, urine; Future Nurse Note: Follow Up: Patient is to have labs drawn at directed and return to office for initial OB appointment with provider. Patient may call office as needed with any concerns or questions. Nurse Visit Completed by: Fadia Calero MA documented in this encounter [facility] 08-30-2024 History of Presen t illness Narrative [...] nursing note reviewed. Exam conducted with a grave cleaner present. Vitals: Estimated body mass index is [...] complaints of heavy cycles. Sent [facility] to [email or web address] to be mailed to patient & [...] by Teri Garibay LPN on behalf of: Arcadio Miranda DO documented in this encounter [facility] 09-20-2023 History of Presen t illness Narrative Reason for Appointment: Patient ID: Verónica Decker is a 28 y.o. female who presents for Routine Visit Patient presents today for Return OB appointment. Current Medications: has a current medication list which includes the following prescription(s): magnesium and vit w/lr-dztudofkg-ii. Medical History: Active Ambulatory Problems Diagnosis Date [...] nursing note reviewed. Exam conducted with a grave cleaner present. Vitals: There is no height or [...] by Linda Myers LPN on behalf of: Arcadio Miranda DO documented in this encounter [facility] 02-01-2022 Note [facility] [place], [place] NAME: VERÓNICA DECKER DATE OF : MEDICAL REC#: [id number] TRANSPORT MANAGER: ISMAEL LEI ADMIT DATE: 02/01/2022 07:59:00 INDUSTRIAL TRACTOR DRIVER DATE: 02/02/2022 22:13 DICTATING PHYSICIAN: ARCADIO MIRANDA DICTATION DATE: 02/01/2022 18:10 OPERATIVE NOTE [...] cervical change. ANESTHESIA: Spinal with Duramorph. SURGEON: Arcadio Miranda D.O. BAND TEACHER: THERESE Abbasi URINE OUTPUT: Yellow and clear. [...] stable condition. Electronically Authenticated and Edited by: Arcadio Miranda DO on 02/04/2022 10:17 AM EDT IF Signed and Approved by: DR ARCADIO MIRANDA . 02/04/2022 10:17:00 [facility] 02-01-2022 Note DISCHARGE SUMMARY DISCHARGE DATE: 02/04/2022 [...] narcotics. IF Signed and Approved by: DR ARCADIO MIRANDA . 02/07/2022 10:46:00 [facility] Evaluation note Diagnosis Second trimester state, incidental Placental abnormality in second trimester [facility] Diagnosis Well woman exam with routine gynecological exam Routine gynecological examination Menorrhagia with irregular cycle [facility] Diagnosis Missed menses , unspecified gestational age ([facility]) Encounter for supervision of normal first in first trimester ([facility]) [facility] Diagnosis First trimester ([facility]) state, incidental 12 weeks gestation of ([facility]) [facility] Diagnosis 17 weeks gestation of ([facility]) Subchorionic hematoma in first trimester, single or unspecified fetus ([facility]) Second trimester ([facility]) state, incidental Screening, , for anatomic survey ([facility]) Encounter for anatomic survey Exposure to STD Vaginal discharge Leukorrhea, not specified as infective Nausea and vomiting, unspecified vomiting type [facility] Diagnosis 20 weeks gestation of ([facility]) Second trimester ([facility]) state, incidental Subchorionic hematoma in first trimester, single or unspecified fetus ([facility]) Request for sterilization [facility] Diagnosis 24 weeks gestation of ([facility]) Second trimester ([facility]) state, incidental Subchorionic hematoma in first trimester, single or unspecified fetus ([facility]) Diabetes mellitus screening Screening for diabetes mellitus documented in this encounter [facility] Summary Purpose Family History No Family History Records FoundNo Family History Records FoundNo Family History Records Found Advance Directives No Advanced Directives Records FoundNo Advanced Directives Records FoundNo Advanced Directives Records Found Procedure Findings Note Patient: VERÓNICA RIVERS [facility]: [id number] Age: 24 years Sex: Female : 1995 Associated Diagnoses: None Author: Manuel Lyman Jr., DO Postoperative Information Post Operative Note Anesthetic utilized: Monitored anesthesia care. 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 denies significant n/v, and is (more content not included)... Additional Source Comments INFORMATION SOURCE (unrecogn ized section and content) DATE CREATED AUTHOR [facility]31/[facility] DATE CREATED AUTHOR AUTHOR'S ORGANIZ ATION 06/07/2022 Adryan Ferraro [facility] DATE CREATED AUTHOR AUTHOR'S ORGANIZ ATION 05/21/2025 [facility] EPIC Reason for Visit (unrecogniz ed section and content) Reason Comments Routine Visit Reason Comments Well Women Visit Reason Comments Amenorrhea Care Teams (unrecognized sec tion and content) Senior Software Qa Engineer Relationship Specialty Start Date End Date Marcello Byrd MD [address] [place] [facility] [place] [address] PCP - General Family Medicine 05/20/23 Senior Software Qa Engineer Relationship Specialty Start Date End Date Marcello Byrd MD [address] [place] [facility] [place] [address] PCP - General Family Medicine 05/20/23 Senior Software Qa Engineer Relationship Specialty Start Date End Date Marcello Byrd MD [address] [place] [facility] [place] [address] PCP - General Family Medicine 05/20/23 Senior Software Qa Engineer Relationship Specialty Start Date End Date Marcello Byrd MD [address] [place] [facility] [place] [address] PCP - General Family Medicine 05/20/23 Senior Software Qa Engineer Relationship Specialty Start Date End Date Marcello Byrd MD [address] [facility] [place] [address] PCP - General Family Medicine 05/20/23 Senior Software Qa Engineer Relationship Specialty Start Date End Date Marcello Byrd MD [address] [facility] [place] [address] PCP - General Family Medicine 05/20/23 Senior Software Qa Engineer Relationship Specialty Start Date End Date Marcello Byrd MD [address] [facility] [place] [address] PCP - General Family Medicine 05/20/23 Senior Software Qa Engineer Relationship Specialty Start Date End Date Marcello Byrd MD [address] [facility] [place] [address] PCP - General Family Medicine 05/20/23 Senior Software Qa Engineer Relationship Specialty Start Date End Date Marcello Byrd MD [address] [facility] [place] [address] PCP - General Family Medicine 05/20/23 Senior Software Qa Engineer Relationship Specialty Start Date End Date Marcello Byrd MD [address] [facility] [place] [address] PCP - General [facility] Medicine 05/20/23 Senior Software Qa Engineer Relationship Specialty Start Date End Date Marcello Byrd MD [address] [place] [facility] [place] [address] PCP - General Family Medicine 05/20/23 FOR [...] BE BASED ON THE PRIMARY CLINICAL RECORDS. [facility] [employer] [facility]. provides no warranty or guarantee of the accuracy or completeness of information in this document.
[2025-05-23 08:34] LABS: Glucose 1 Hour 93 mg/dL (<130); Hematocrit 36.6 % (36.0-48.0); Hemoglobin 12.1 g/dL (12.0-16.0); Immature Granulocytes Abs Auto 0.14 10^3/uL (0.00-0.03); Immature Granulocytes Pct Auto 1.3 % (0.0-0.5); Lymphocytes Absolute Auto 2.0 10^3/uL (1.2-3.8); Mean Corpuscular HGB Conc 33.1 g/dL (29.9-35.2); Mean Corpuscular Hemoglobin 30.0 pg (26.7-34.0); Mean Corpuscular Volume 90.8 fL (81.0-99.0); Platelet Count 232 10^3/uL (150-450); Red Blood Count 4.03 10^6/uL (4.20-5.40); White Blood Count 10.6 10^3/uL (4.0-11.0)
== END 2025-05-23 07:12 | disposition home or self-care (01) ==
LOC: LAB 07:12
PROVIDERS: PCP Family Medicine; Visit Provider Nurse Practitioner Family
DX: Z13.1 Encounter for screening for diabetes mellitus (principal)
CPT/HCPCS: 36415; 82950; 85025

== ENCOUNTER 2025-08-05 20:50 | Outpatient (REF) | payer OTHER, SELFPAY ==
--- OUTSIDE RECORDS SUMMARY | 2025-07-29 14:30 | XMS_ITS | Encounter Summary ---
Author Organization [facility] Address [address] [place] [address] Care Team Providers Care Window Cutter Name Role Phone Marcello Byrd MD Primary Care Provider [phone] Reason for Visit * ReasonCommentsRoutine Visit Encounter Details DateTypeDepartmentCare Team (Latest Contact Info)Fohzctkbxdn25/15/2025 2:30 PM ESTRoutine [facility] [address] [place], [phone] Arcadio Miranda DO [address] Donna Ferraro, [facility]11 Third trimester ([facility]); 35 weeks gestation of ([facility]) Social History Tobacco UseTypesPacks/DayYears UsedDateSmoking Tobacco: NeverSmokeless Tobacco: NeverAlcohol UseStandard Drinks/WeekCommentsYes1 (1 standard drink = 0.6 oz pure alcohol)Estimated Date of EesqxvzrOjlqnkugFwb20/19/2026ased on UltrasoundSex and Gender InformationValueDate RecordedSex Assigned at Lqtjpw9204/20/2023 5:24 PM EDTLegal ZycYwmdag58/15/2023 11:47 PM EDTGender OsvmlrsiGyvhsu79/06/2023 5:24 PM EDTSexual EneofegacoiRfgkqhbh97/06/2023 5:24 PM EDTdocumented as of this encounter Last Filed Vital Signs Vital SignReadingTime TakenCommentsBlood Yqcbztqs415/7407/29/2025 2:54 PM EST Pulse--Temperature--Respiratory Rate--Oxygen Saturation--Inhaled Oxygen Concentration--Gflfkm57.7 kg (211 lb)07/29/2025 2:54 PM ESTHeight--Body Mass Index33.05001/31/2025 3:00 PM EDTdocumented in this encounter Progress Notes * Chelsey Smith NP - 07/29/2025 2:30 PM EST Reason for Appointment: Patient ID: Verónica Cano is a 30 y.o. female who presents for Routine Visit Patient presents today for Return OB appointment. MEDICATIONS Current Outpatient Medications Medication Instructions magnesium oxide (MAG-OX) 400 mg, Daily omeprazole (PRILOSEC) 20 mg, Oral, Daily before breakfast, Do not crush or chew. Otendfir-Cpp-As-FA (, w/Iron & FA,) 27-0.8 MG tablet Every 24 hours Vit-Fe Fumarate-FA ( VITAMIN PO) Take by mouth Xertpgsb-RaHui-II-DHA w/o A ( + DHA PO) Take by mouth ALLERGIES No Known Allergies PROBLEMS Active Ambulatory Problems Diagnosis Date Noted No Active Ambulatory Problems Resolved Ambulatory Problems Diagnosis Date Noted No Resolved Ambulatory Problems Past Medical History: Diagnosis Date Bacterial vaginosis HISTORY PAST MEDICAL HISTORY SOCIAL HISTORY Past Medical History: Diagnosis Date Bacterial vaginosis Social History Tobacco Use Smoking status: Never Smokeless tobacco: Never Substance Use Topics Alcohol use: Yes Alcohol/week: 1.0 standard drink of alcohol Types: 1 Glasses of wine per week Drug use: Never FAMILY HISTORY No family [...] nursing note reviewed. Exam conducted with a coat examiner present. Vitals: Estimated body mass index is 33.05 kg/m?? as calculated from the following: Height as of 01/31/25: 5' 7 . Weight as of this encounter: 211 lb. BP: 122/74 Patient's last menstrual period was 11/26/2024. Assessment/Plan ICD-10-CM 1. Third trimester ([facility]) Z34.93 2. 35 weeks gestation of ([facility]) Z3A.35 POCT urinalysis dipstick manually resulted Assessment/Plan Return OB: Patient presents today for a routine obstetrics appointment. Patient is currently 35w0d . Patient states she is doing well but has complaints of being tired due to current . Patient has verbalizes frequent movement. labor precautions was discussed/given and patient was instructed to perform kick counts three times a day. Orders Placed This Encounter Procedures POCT urinalysis dipstick manually resulted Follow Up: Patient is to return to office in 1 week for routine OB appointment. Documented by Chelsey Smith NP on behalf of: Arcadio Miranda DO documented in this encounter Plan of Treatment DateTypeDepartmentCare Team (Latest Contact Info)Ffltlihaway22/29/2025 3:50 PM ESTRoutine [facility] [address] [place] [address] Yoli Tan PA [address] [place], [place] [id number] documented as of this encounter Procedures Procedure NamePriorityDate/TimeAssociated DiagnosisCommentsPOCT URINALYSIS YBIHVBKSJwmiohv69/15/2025 3:00 PM EST 35 weeks gestation of ([facility]) documented in this encounter Results * (ABNORMAL) POCT urinalysis dipstick manually resulted (07/29/2025 3:00 PM EST) ComponentValueRef RangeTest MethodAnalysis TimePerformed AtPathologist SignatureColor, UAYellowClarity, UAClearGlucose, UANegativeNegative - 2000(110) ++++ mg/dLBilirubin, UANegativeNegative - 4(70) +++ mg/dLKetones, UA NegativeNegative - 160(16) ++++ mg/dLSpec Grav, UA1.0101 - 1.03Blood, UA NegativeNegative - 50 Zeus/mcLpH, UA7.55 - 9Protein, UANegativeNegative - 2000(20) ++++ mg/dLUrobilinogen, UA1.00.2 - 12 mg/dLLeukocytes, UA2+Negative - 500+++ Jing/mcLNitrite, UANegativeNegative - PositiveSpecimen (Source) Anatomical Location / LateralityCollection Method / VolumeCollection Time Received AjelWndec84/15/2025 3:00 PM EST Narrative Authorizing ProviderResult TypeResult StatusCorey Ruth DOPOINT OF CARE TEST ENTER/EDIT ORDERABLESFinal Result documented in this encounter Visit Diagnoses Diagnosis Third trimester ([facility]) state, incidental 35 weeks gestation of ([facility]) documented in this encounter Care Teams Team MemberRelationshipSpecialtyStart DateEnd Marcello Byrd MD [address] [place] [address] PCP - GeneralFamily Enmvkdpc83/6/23documented as of this encounter
--- OUTSIDE RECORDS SUMMARY | 2025-08-05 14:50 | XMS_ITS | Encounter Summary ---
Author Organization [facility] Address [address] [facility] [address] [place] [address] Care Team Providers Care Semiconductor Packages Platemaker Name Role Phone Marcello Byrd MD Primary Care Provider [phone] Reason for Visit * ReasonCommentsRoutine Visit Encounter Details DateTypeDepartmentCare Team (Latest Contact Info)Narszvqoolj95/22/2025 2:50 PM ESTRoutine [facility] [address] [place] [address] Yoli Tan PA [address] [place], [facility] 36 weeks gestation of ([facility]); Third trimester ([facility]) Social History Tobacco UseTypesPacks/DayYears UsedDateSmoking Tobacco: NeverSmokeless Tobacco: NeverAlcohol UseStandard Drinks/WeekCommentsYes1 (1 standard drink = 0.6 oz pure alcohol)Estimated Date of KygofppyEwrgvohjXbi17/19/2026ased on UltrasoundSex and Gender InformationValueDate RecordedSex Assigned at Jbaehl5904/20/2023 5:24 PM EDTLegal JwhCxvpno30/15/2023 11:47 PM EDTGender ImwlhlxwLrdbus11/06/2023 5:24 PM EDTSexual EtpzmlkthpqQsihxblr48/06/2023 5:24 PM EDTdocumented as of this encounter Last Filed Vital Signs Vital SignReadingTime TakenCommentsBlood Szorqzfb782/80110/06/2024 3:03 PM EST Pulse--Temperature--Respiratory Rate--Oxygen Saturation--Inhaled Oxygen Concentration--Ihnokw93 kg (213 lb 12.8 oz)08/05/2025 3:03 PM ESTHeight--Body Mass Index33.49001/31/2025 3:00 PM EDTdocumented in this encounter Progress Notes * AMY Bahena - 08/05/2025 2:50 PM EST Reason for Appointment: Patient ID: Verónica Cano is a 30 y.o. female who presents for Routine Visit Patient presents today for Return OB appointment. MEDICATIONS Current Outpatient Medications Medication Instructions magnesium oxide (MAG-OX) 400 mg, Daily omeprazole (PRILOSEC) 20 mg, Oral, Daily before breakfast, Do not crush or chew. Vhhhovvn-Nyr-Dt-FA (, w/Iron & FA,) 27-0.8 MG tablet Every 24 hours Vit-Fe Fumarate-FA ( VITAMIN PO) Take by mouth Gynesfnv-IpQie-NW-DHA w/o A ( + DHA PO) Take [...] Exam Constitutional: Appearance: Normal appearance. She is well-developed and normal weight. HENT: Head: Normocephalic. Cardiovascular: Rate and Rhythm: Normal rate and regular rhythm. Pulses: Normal pulses. Pulmonary: Effort: Pulmonary effort is normal. Breath sounds: Normal breath sounds. Abdominal: General: Bowel sounds are normal. There is no distension. Palpations: Abdomen is soft. Tenderness: There is no abdominal tenderness. There is no guarding or rebound. Musculoskeletal: General: No swelling. Normal range of motion. Right lower leg: No edema. Left lower leg: No edema. Neurological: General: No focal deficit present. Mental Status: She is alert and oriented to person, place, and time. Skin: General: Skin is warm and dry. Psychiatric: Mood and Affect: Mood normal. Behavior: Behavior normal. Thought Content: Thought content normal. Judgment: Judgment normal. Vitals and nursing note reviewed. Exam conducted with a professional development director present. Vitals: Estimated body mass index is 33.05 kg/m?? as calculated from the following: Height as of 01/31/25: 5' 7 . Weight as of 07/29/25: 211 lb. BP: Patient's last menstrual period was 11/26/2024. Assessment/Plan ICD-10-CM 1. 36 weeks gestation of ([facility]) Z3A.36 POCT urinalysis dipstick manually resulted 2. Third trimester ([facility]) Z34.93 POCT urinalysis dipstick manually resulted CULTURE, GROUP B STREP WITH SUSCEPTIBLITY CULTURE, GROUP B STREP WITH SUSCEPTIBLITY Assessment/Plan Patient is doing well but has complaints of being tired and having maternal discomfort due to . Patient verbalized frequent movement and was instructed to perform kick counts three times per day. labor precautions were given, LARC consent was signed/declined, and GBS was obtained. Cervical check was performed and patient is 1 cm dilated. Orders Placed This Encounter Procedures CULTURE, GROUP B STREP WITH SUSCEPTIBLITY POCT urinalysis dipstick manually resulted Follow Up: Patient is to return to office in 1 week for routine OB appointment Documented by Lola Gonzalez LPN on behalf of: AMY Bahena documented in this encounter Plan of Treatment DateTypeDepartmentCare Team (Latest Contact Info)Ecnrhtmrmin54/29/2025 3:50 PM ESTRoutine [facility] [address] [place] [address] [place] [phone] Yoli Tan PA [address] [place] [address] [place] [id number] NameTypePriorityAssociated DiagnosesOrder ScheduleCULTURE, GROUP B STREP WITH SUSCEPTIBLITYLabRoutine Third trimester ([facility]) Expected: 08/05/2025, Expires: 08/05/2026documented as of this encounter Procedures Procedure NamePriorityDate/TimeAssociated DiagnosisCommentsPOCT URINALYSIS LKNFRRJYUqsuneb63/22/2025 3:12 PM EST 36 weeks gestation of ([facility]) Third trimester ([facility]) documented in this encounter Results * POCT urinalysis dipstick manually resulted (08/05/2025 3:12 PM EST)Component ValueRef RangeTest MethodAnalysis TimePerformed AtPathologist SignatureColor, UAYellowClarity, UAClearGlucose, UANegativeNegative - 2000(110) ++++ mg/dL Bilirubin, UANegativeNegative - 4(70) +++ mg/dLKetones, UANegativeNegative - 160(16) ++++ mg/dLSpec Grav, UA1.0101 - 1.03Blood, UANegativeNegative - 50 Zeus/mcLpH, UA6.05 - 9Protein, UANegativeNegative - 2000(20) ++++ mg/dL Urobilinogen, UA1.00.2 - 12 mg/dLLeukocytes, UANegativeNegative - 500+++ Jing/mcLNitrite, UANegativeNegative - PositiveSpecimen (Source)Anatomical Location / LateralityCollection Method / VolumeCollection TimeReceived Time Urine08/05/2025 3:12 PM EST Narrative Authorizing ProviderResult TypeResult StatusAmy Dominick PAPOINT OF CARE TEST ENTER/EDIT ORDERABLESFinal Result documented in this encounter Visit Diagnoses Diagnosis 36 weeks gestation of ([facility]) Third trimester ([facility]) state, incidental documented in this encounter Care Teams Team MemberRelationshipSpecialtyStart DateEnd Date Marcello Byrd MD [address] [facility] [place] [address] PCP - GeneralFamily Uthmshbo57/6/23documented as of this encounter
--- OUTSIDE RECORDS SUMMARY | 2025-08-05 20:52 | XMS_ITS | Encounter Summary ---
Author Organization [facility] Address [address] [facility] [place] [address] Care Team Providers Care Alligator Trapper Name Role Phone Marcello Byrd MD Primary Care Provider [phone] Encounter Details DateTypeDepartmentCare Team (Latest Contact Info)Doznilttkyg34/08/2025Travel Social History Tobacco UseTypesPacks/DayYears UsedDateSmoking Tobacco: NeverSmokeless Tobacco: NeverAlcohol UseStandard Drinks/WeekCommentsYes1 (1 standard drink = 0.6 oz pure alcohol)Estimated Date of MkaopygsIuhpwepaRmf25/19/2026ased on UltrasoundSex and Gender InformationValueDate RecordedSex Assigned at Iwemvg2304/20/2023 5:24 PM EDTLegal JvwXictuo68/15/2023 11:47 PM EDTGender WpgwvbsyLmoqvw78/06/2023 5:24 PM EDTSexual WarnkajvrghRvmkrala39/06/2023 5:24 PM EDTdocumented as of this encounter Plan of Treatment DateTypeDepartmentCare Team (Latest Contact Info)Gtojjdsaqmq01/29/2025 3:50 PM ESTRoutine [facility] [address] [place] [phone] Yoli Tan PA [address] [place] [address] documented as of this encounter Visit Diagnoses Not on filedocumented in this encounter Care Teams Team MemberRelationshipSpecialtyStart DateEnd Date Marcello Byrd MD [address] [place] [address] PCP - GeneralFamily Vgozmhjj41/6/23documented as of this encounter
--- OUTSIDE RECORDS SUMMARY | 2025-08-05 20:52 | XMS_ITS | Clinical Summary ---
Author Organization [facility] Address [address] [place] [address] Care Team Providers Care Geospatial Engineer Name Role Phone Marcello Byrd MD Primary Care Provider [phone] Allergies No known active allergies Medications MedicationSigDispense QuantityRefillsLast FilledStart DateEnd DateStatus magnesium oxide (Mag-Ox) 400 mg tablet 400 mg DailyActive Vit-Fe Fumarate-FA ( VITAMIN PO) Take by mouthActive omeprazole (PriLOSEC) [address] capsule Indications:Gastroesophageal Reflux Disease,HeartburnTake 1 capsule (20 mg) by mouth in the morning. Take before meals. Do not crush or chew. 30 capsule 5Active Xqpyaurs-Bkx-Es-FA (, w/Iron & FA,) 27-0.8 MG tablet 1 (one) time each day at the same timeActive Juvodaib-KxPve-LW-DHA w/o A ( + DHA PO) Take by mouth5Active Encounters DateTypeDepartmentCare KmfcXqgnpeximev75/22/2025 2:50 PM ESTRoutine [facility] GAMBINO [address] [place] [address] Yoli Tan PA 36 weeks gestation of ([facility]); Third trimester ([facility])08/05/2025amboo flowsheet [facility] [address] [place] [address] Yoli Tan PA 07/30/20259094Qyvbyw84/15/2025 2:30 PM ESTRoutine [facility] [address] [place] [address] Arcadio Miranda DO Third trimester ([facility]); 35 weeks gestation of ([facility])07/29/2025amb flowsheet [facility] [address] [place] [address] Arcadio Miranda DO 07/22/20251400Diugdx58/02/2025 2:50 PM ESTRoutine [facility] [address] [place] [address] Yoli Tan PA Third trimester ([facility]); 33 weeks gestation of ([facility])07/16/2025[facility] flow[facility] CANTUN [address] [place] [address] Yoli Tan PA 07/09/20250838Cfyxyd57/18/2025 9:00 AM ESTRoutine [facility] [address] [place] [address] Arcadio Miranda DO Third trimester ([facility]); 31 weeks gestation of ([facility])07/02/2025 8:30 AM ESTAncillary Procedure [facility] [address] [place] [address] size inconsistent with dates ([facility])07/01/20253423Knvvif95/11/2025Travel 06/05/2025 8:50 AM EDTRoutine [facility] [address] [place] [address] Chelsey Smith NP size inconsistent with dates ([facility]) (Primary Dx); 27 weeks gestation of ([facility]); Second trimester ([facility]); Subchorionic hematoma in first trimester, single or unspecified fetus ([facility]); Request for sterilization; Heartburn during in second trimester ([facility])06/05/2025amboo flowsheet [facility] [address] [address] [place] [address] [place] [address] Chelsey Smith NP 05/29/20250159Jrefpt57/09/2025linisync Result Encounter N[facility] External Department Unsolicited Chelsey Smith NP 05/16/2025 3:00 PM EDTRoutine [facility]AMBINO [address] [place] [address] [place] [phone] Chelsey Smith NP 24 weeks gestation of ([facility]); Second trimester ([facility]); Subchorionic hematoma in first trimester, single or unspecified fetus ([facility]); Diabetes mellitus nsamghjyj26/02/2025amb flowsheet [facility] [address] [place] [address] [place] [address] Chelsey Smith NP 05/09/2025Travelfrom Last 3 Months Social History Tobacco UseTypesPacks/DayYears UsedDateSmoking Tobacco: NeverSmokeless Tobacco: Never Tobacco Cessation:Counseling Given: Not Answered Alcohol UseStandard Drinks/WeekCommentsYes1 (1 standard drink = 0.6 oz pure alcohol)Estimated Date of ItpclcfsJrxmoqanHhu42/19/2026ased on UltrasoundSex and Gender InformationValueDate RecordedSex Assigned at Wtwaiw1204/20/2023 5:24 PM EDTLegal QnpHfdwaf07/15/2023 11:47 PM EDTGender CrmlrbxtJowzsw48/06/2023 5:24 PM EDTSexual QxlzhtzcnctIasuebih54/06/2023 5:24 PM EDT Last Filed Vital Signs Vital SignReadingTime TakenCommentsBlood Aurtryxk933/80110/06/2024 3:03 PM EST Pulse--Temperature--Respiratory Rate--Oxygen Saturation--Inhaled Oxygen Concentration--Mlvefx70 kg (213 lb 12.8 oz)08/05/2025 3:03 PM PNELavawq732.2 cm (5' 7 )01/31/2025 3:00 PM EDTBody Mass Index33.4906 3:00 PM EDT Plan of Treatment DateTypeDepartmentCare Team (Latest Contact Info)Elltkzkzgee86/29/2025 3:50 PM ESTRoutine [facility] [address] [place] [phone] Yoli Tan PA [address] [place] [address] Procedures Procedure NamePriorityDate/TimeAssociated DiagnosisCommentsPOCT URINALYSIS AMWNDLOIFilncrm09/22/2025 3:12 PM EST 36 weeks gestation of ([facility]) Third trimester ([facility]) POCT URINALYSIS GCLOMWSWUhtvsxp34/15/2025 3:00 PM EST 35 weeks gestation of ([facility]) POCT URINALYSIS QLLPWCNWHhbbqrp49/02/2025 3:18 PM EST 33 weeks gestation of ([facility]) POCT URINALYSIS BTBVJLACMjjyihl73/18/2025 9:22 AM EST 31 weeks gestation of ([facility]) US OB FOLLOW UP TRANSABDOMINAL ENITSYHGDmopmfu18/18/2025 8:50 AM EST size inconsistent with dates ([facility]) POCT URINALYSIS AOVFIHMPAgcolwc39/22/2025 8:52 AM EDT 27 weeks gestation of ([facility]) Second trimester ([facility]) Subchorionic hematoma in first trimester, single or unspecified fetus ([facility]) GLUCOSE 1 AMADYqmifaf12/09/2025 8:10 AM EDT ALL CBC WITH AUTO CYQINnuktir99/09/2025 8:10 AM EDT POCT URINALYSIS TZHYIOXATgrmwpf08/02/2025 3:27 PM EDT 24 weeks gestation of ([facility]) Second trimester ([facility]) from Last 3 Months Results * POCT urinalysis dipstick manually resulted (08/05/2025 3:12 PM EST) Only the most recent of6 resultswithin the time period is included. ComponentValueRef RangeTest MethodAnalysis TimePerformed AtPathologist Signature Color, UAYellowClarity, UAClearGlucose, UANegativeNegative - 2000(110) ++++ mg/dLBilirubin, UANegativeNegative - 4(70) +++ mg/dLKetones, UANegativeNegative - 160(16) ++++ mg/dLSpec Grav, UA1.0101 - 1.03Blood, UANegativeNegative - 50 Zeus/mcLpH, UA6.05 - 9Protein, UANegativeNegative - 2000(20) ++++ mg/dL Urobilinogen, UA1.00.2 - 12 mg/dLLeukocytes, UANegativeNegative - 500+++ Jing/mcL Nitrite, UANegativeNegative - PositiveSpecimen (Source)Anatomical Location / LateralityCollection Method / VolumeCollection TimeReceived BsvlBxtqj93/22/2025 3:12 PM EST Narrative Authorizing ProviderResult TypeResult StatusFall [facility] Emergency Hospital OF CARE TEST ENTER/EDIT ORDERABLESFinal Result * US OB follow up transabdominal approach (07/02/2025 8:50 AM EST)Anatomical RegionLateralityModalityBodyUltrasoundSpecimen (Source)Anatomical Location / LateralityCollection Method / VolumeCollection TimeReceived Time07/03/2025 3:59 PM EST Impressions 07/04/2025 7:19 AM EST Single, live intrauterine , current sonographic age of 31 weeks and 4 days, with an estimated date of delivery of August 30, 2025 (prior MIGUE September 04, 2025). * ??Estimated Weight (g) by Percentile is based upon an accurate estimated age based onlast menstrual period. ?? TRANSCRIBED BY: ? ELECTRONICALLY SIGNED BY: Kale Russ MD Narrative 07/04/2025 7:19 AM EST FINDINGS: Comparison April 16, 2025. A single, live intrauterine is present with normal cardiac rate of 136 beats per minute. Normal activity and amniotic fluid volume. Amniotic fluid index is 10 cm. ??Morphology is grossly normal. The current sonographic age is 31 weeks and 4 days, based on the following measurements: ?BPD ? 7.9 cm (31 weeks, 6 days) ?Head Circumference ?28.8 cm (31 weeks, 5 days) ?Abdominal Circumference ?27.5 cm (31 weeks, 4 days) ?Femur Length ?5.9 cm (30 weeks, 6 days) ?Presentation ? Cephalic ? Weight (g) by Percentile ??46.3 % * ??(prior 60.2%) These measurements result in an estimated date of delivery of August 30, 2025. ?? The current estimated weight is 1758 grams (3 pounds, 14 ounces). ?? Procedure Note Kale Russ MD - 07/04/2025 FINDINGS: Comparison April 16, 2025. A single, live intrauterine is present with normal cardiacrate of 136 beats per minute. Normal activity and amniotic fluidvolume. Amniotic fluid index is 10 cm. Morphology is grossly normal. Thecurrent sonographic age is 31 weeks and 4 days, based on the followingmeasurements: BPD 7.9 cm (31 weeks, 6 days) Head Circumference 28.8 cm (31 weeks, 5 days) Abdominal Circumference 27.5 cm (31 weeks, 4 days) Femur Length 5.9 cm (30 weeks, 6 days) Presentation Cephalic Weight (g) by Percentile 46.3 % * (prior 60.2%) These measurements result in an estimated date of delivery of August. The current estimated weight is 1758 grams (3 pounds, 14ounces). IMPRESSION: Single, live intrauterine , current sonographic age of 31 weeksand 4 days, with an estimated date of delivery of August 30, 2025 (priorEDD September 04, 2025). * Estimated Weight (g) by Percentile is based upon an accurateestimated age based on last menstrual period. TRANSCRIBED BY: ELECTRONICALLY SIGNED BY: Kale Russ MD Authorizing ProviderResult TypeResult StatusChelsey Smith NPIMG OB US PROCEDURESFinal Result * GLUCOSE 1 HOUR (05/23/2025 8:10 AM EDT)ComponentValueRef RangeTest Method Analysis TimePerformed AtPathologist SignatureGLUCOSE 1 HOUR93<130 mg/dLTBH Specimen (Source)Anatomical Location / LateralityCollection Method / Volume Collection TimeReceived Time05/23/2025 8:10 AM EDT1 8:18 AM EDT Narrative [facility] - 05/23/2025 8:48 AM EDT Authorizing ProviderResult TypeResult StatusChelsey Smith NPLAB BLOOD ORDERABLESFinal ResultPerforming OrganizationAddressCity/State/ZIP CodePhone Number CLINISYCOUNTS [facility] * (ABNORMAL) ALL CBC WITH AUTO DIFF (05/23/2025 8:10 AM EDT)ComponentValueRef RangeTest MethodAnalysis TimePerformed AtPathologist SignatureTBH WBC10.64.0 - 11.0 10 3/uLTBHTBH RBC4.03(L)4.20 - 5.40 10 6/uLTBHTBH HGB12.112.0 - 16.0 g/dL TBHTBH HCT36.636.0 - 48.0 %TBHTBH MCV90.881.0 - 99.0 fLTBHTBH MCH30.026.7 - 34.0 pgTBHTBH MCHC33.129.9 - 35.2 g/dLTBHTBH RDW14.011.0 - 15.0 %TBHTBH ADE227 150 - 450 10 3/uLTBHTBH MPV9.99.5 - 13.5 fLTBHNEUTROPHILS PERCENT AUTO70.743.0 - 75.0 %TBHLYMPHOCYTES PERCENT AUTO19.2(L)20.5 - 60.0 %TBHMONOCYTES PERCENT AUTO6.41.7 - 12.0 %TBHTBH EO %1.90.9 - 7.0 %TBHBASOPHILS PERCENT AUTO0.50.2 - 2.0 %TBHIMMATURE GRANULOCYTES PCT AUTO1.3(H)0.0 - 0.5 %TBHNEUTROPHILS ABSOLUTE AUTO7.5(H)1.4 - 6.5 10 3/uLTBHLYMPHOCYTES ABSOLUTE AUTO2.01.2 - 3.8 10 3/uLTBH MONOCYTES ABSOLUTE AUTO0.70.3 - 0.8 10 3/uLTBHTBH EO #0.20.0 - 0.7 10 3/uLTBH BASOPHILS ABSOLUTE AUTO0.10.0 - 0.1 10 3/uLTBHIMMATURE GRANULOCYTES ABS AUTO 0.14(H)0.00 - 0.03 10 3/uLTBHSpecimen (Source)Anatomical Location / Laterality Collection Method / VolumeCollection TimeReceived Time05/23/2025 8:10 AM EDT 05/23/2025 8:18 AM EDT Narrative [facility] - 05/23/2025 8:40 AM EDT Authorizing ProviderResult TypeResult StatusKristina Sarah NPCLINISYNCFinal ResultPerforming OrganizationAddressCity/State/ZIP CodePhone Number [facility] from Last 3 [place] [address] Care Teams Team MemberRelationshipSpecialtyStart DateEnd Date Marcello Byrd MD [address] [place] [address] PCP - GeneralFamily Jhrxnxhh99/6/23
--- OUTSIDE RECORDS SUMMARY | 2025-08-05 20:52 | XMS_ITS | Clinical Summary ---
Author Organization Zapproved [facility] tem Address [id number] [address] [place] [address] Care Team Providers Care Middle School Baseball Coach Name Role Phone Marcello Byrd MD Primary Care Provider [phone] Allergies No known active allergies Medications MedicationSigDispense QuantityRefillsLast FilledStart DateEnd DateStatus PNV no.95/ferrous fum/folic ac ( ORAL) Take 1 tablet by mouth daily.Active Active Problems ProblemNoted DateDiagnosed DateS/P voxaldrrjefqr67/06/2021Chronic tonsillitis 11/18/2020 Family History Medical HistoryRelationNameCommentsBipolar disorderMaternal Grandfather HypertensionMaternal GrandmotherCancerPaternal GrandfatherSKINHeart disease Paternal GrandfatherCancerPaternal GrandmotherBLADDERDiabetesPaternal GrandmotherKidney diseasePaternal GrandmotherRelationNameStatusCommentsMaternal GrandfatherMaternal GrandmotherPaternal GrandfatherPaternal GrandmotherDeceased Social History Tobacco UseTypesPacks/DayYears UsedDateSmoking Tobacco: NeverSmokeless Tobacco: NeverAlcohol UseStandard Drinks/WeekCommentsNot Currently0 (1 standard drink = 0.6 oz pure alcohol)PHQ-2AnswerDate RecordedTotal Xdzqx3201Childcare AnswerDate KpemyreePqijssibfLcqcnxi22/01/2021EmploymentAnswerDate Recorded SaiqgybjovEmcvhkq54/01/2021Purpose - LifeAnswerDate RecordedPurpose and direction in qrnuIubwmly58/01/2021CommentsNoSex and Gender Information ValueDate RecordedSex Assigned at BirthNot on fileLegal AqvOuprrd12/01/2021 12:11 PM EDTGender IdentityNot on fileSexual OrientationNot on file Last Filed Vital Signs Vital SignReadingTime TakenCommentsBlood Mbzhbdqr571/6403 2:35 PM EST Blmok1643 2:35 PM VATHtbuntevcxv04.2 ??C (97.1 ??F)02/02/2021 8:58 AM EDTRespiratory Lsbe977902/02/2021 10:04 AM EDTOxygen Nxljxncayk986%02/02/2021 10:04 AM EDTInhaled Oxygen Concentration--Ducxdl13.7 kg (166 lb 14.2 oz) 10/20/2021 2:35 PM ILBHxovqk471.1 cm (5' 5 )10/20/2021 2:35 PM ESTBody Mass Index27.7703 2:35 PM EST Plan of Treatment Health MaintenanceDue DateLast DoneCommentsDepression Seaivnmvk90/07/2009Tobacco Smlqtrpak47/07/2009dult BMI Rhmnxeqkh44/07/2015Pap Smear2018DTaP,Tdap and Td Vaccines (7 - Td or Tdap), 11/28/2002, 08/01/1998, Additional history existsInfluenza Wwcmjbu67/, 05/18/2019, 06/05/2018, Additional history exists Medical Devices Not on file Insurance Care Teams Team MemberRelationshipSpecialtyStart DateEnd Date Marcello Byrd MD PCP - GeneralFamily Medicine01/21/21
--- OUTSIDE RECORDS SUMMARY | 2025-08-05 20:53 | XMS_ITS | Patient Health Record ---
Author Organization [facility] [place] Address [address] [place] [address] Care Team Providers Care Taxi Cab Driver Name Role Phone Ludwin Byrd Primary Care Provider [phone] Allergies No Known Allergies Results Component Value Reference Range Notes CBC AUTO DIFF Reviewed date:01/27/2025 06:06:58 PM Interpretation: Performing Lab: Notes/Report: [facility] , White Blood Count 11.1 4.0-11.0 10 3/uL Red Blood Count4.484.20-5.40 10 6/wXUdvrhdvuad93.212.0-16.0 g/gAAuxifjdexz83.9 36.0-48.0 %Mean Corpuscular Osyczp19.181.0-99.0 fLMean Corpuscular Hemoglobin 29.526.7-34.0 pgMean Corpuscular HGB Conc33.129.9-35.2 g/dLRed Cell Distribution Width13.211.0-15.0 %Platelet Oyquh609211-060 10 3/uLMean Platelet Volume9.89.5- 13.5 fLNeutrophils Percent Auto70.443.0-75.0 %Lymphocytes Percent Auto18.620.5- 60.0 %Monocytes Percent Auto7.41.7-12.0 %Eosinophils Percent Auto2.80.9-7.0 % Basophils Percent Auto0.40.2-2.0 %Immature Granulocytes Pct Auto0.40.0-0.5 % Neutrophils Absolute Auto7.81.4-6.5 10 3/uLLymphocytes Absolute Auto2.11.2-3.8 10 3/uLMonocytes Absolute Auto0.80.3-0.8 10 3/uLEosinophils Absolute Auto0.30.0- 0.7 10 3/uLBasophils Absolute Auto0.00.0-0.1 10 3/uLImmature Granulocytes Abs Auto0.050.00-0.03 10 3/uLPerforming Lab:see noteML - [facility] LB PREG QUANT HCG Reviewed date:01/27/2025 06:14:49 PM Interpretation: Performing Lab: Notes/Report: [facility] ,HCG Nutitsozbhnb48893 500-10,000 3-4 WEEKS 15,000-200,000 6-8 WEEKS 5-50 0.2-1 WEEK 10,000-100,000 5-6 WEEKS 100-5,000 2-3 WEEKS 10,000-100,000 2-3 MONTHS 1,000-50,000 4-5 WEEKS 50-500 1-2 WEEKS Performing Lab:see noteML - [facility] LBPROF 14(COMP METB) Reviewed date:01/27/2025 06:06:58 PM Interpretation: Performing Lab: Notes/Report: [facility] ,Okuqrm119215-671 mmol/LPotassium3.63.5-5.1 mmol/HVotjbfrw88484-031 mmol/LCarbon Zggzqsd07.421.0-32.0 mmol/LAnion Gap15.5Zxyhdou8711-068 mg/dLBlood Urea Nitrogen 10.07.0-18.0 mg/dLCreatinine0.440.55-1.02 mg/dLEstimated GFR ( Virgie>60 >=60 mL/min/1.73m 2Estimated GFR (Non- Tanesha>60>=60 mL/min/1.73m 2BUN Creatinine Ratio22.5Stflwrf3.68.5-10.1 mg/dLBilirubin Total0.20.2-1.0 mg/dL Aspartate Amino Gybczkzxegz2369-23 U/LAlanine Uzwhpzfhlhpoenhz0737-52 U/L Alkaline Qsfynglkyeb9323-772 U/LTotal Protein7.26.4-8.2 g/dLAlbumin Level3.73.4- 5.0 g/dLGlobulin3.5Albumin Globulin Ratio1.1Performing Lab:see noteML - [facility] LBUA (CLEAN or CATCH) SLOT KEY PERSON or MICRO IF IND. Reviewed date:01/27/2025 06:06:58 PM Interpretation: Performing Lab: Notes/Report: [facility] ,Color UrineREDYELLOWClarity UrineSL CLOUDYCLEARSpecific [place] Urine1.020 1.005-1.025pH Urine6.05.0-9.0Protein Kukkz60OOX/TRACE mg/dLGlucose Urine UA NEGATIVENEGATIVE mg/dLBilirubin UrineNEGATIVENEGATIVEKetones UrineNEGATIVE NEGATIVE mg/dLBlood UrineLARGENEGATIVENitrite UrineNEGATIVENEGATIVEUrobilinogen Urine0.20.2-1.0 EU/dLLeukocyte Esterase UrineNEGATIVENEGATIVEUrine Microscopic IndicatedYESPerforming Lab:see noteML - [facility] LBURINE MICROSCOPIC ONLY Reviewed date:01/27/2025 06:06:58 PM Interpretation: Performing Lab: Notes/Report: [facility] ,WBC Urine0-2NONE SEEN #/HPFRBC Aoxzb03-165-9 #/HPFBacteria UrineTRACENONE SEEN #/HPFMucus UrineNONE SEENNONE SEENSquamous Epithelial Cell UrineRARENONE/RARE #/LPFCrystals Seen?None SeenNone Seen #/HPFCast Seen?NONE SEENNONE SEEN #/LPF Urine Culture IndicatedNOPerforming Lab:see note - [facility] LB Type and Screen Reviewed date:01/27/2025 06:06:58 PM Interpretation: Performing Lab: Notes/Report: [facility] ,Blood TypeA PositiveAntibody ScreenNEGATIVECBC AUTO DIFF Reviewed date:02/06/2025 09:44:09 PM Interpretation: Performing Lab: Notes/Report: [facility] ,White Blood Count11.34.0-11.0 10 3/uLRed Blood Count4.104.20-5.40 10 6/uL Akjueuymgq47.412.0-16.0 g/nDGzypwpjuvn07.836.0-48.0 %Mean Corpuscular Vlwrxl39.8 81.0-99.0 fLMean Corpuscular Qfqtdbcusl72.226.7-34.0 pgMean Corpuscular HGB Conc 33.729.9-35.2 g/dLRed Cell Distribution Width13.511.0-15.0 %Platelet Pgeak251 150-450 10 3/uLMean Platelet Volume9.79.5-13.5 fLNeutrophils Percent Auto73.6 43.0-75.0 %Lymphocytes Percent Auto18.520.5-60.0 %Monocytes Percent Auto6.21.7- 12.0 %Eosinophils Percent Auto0.90.9-7.0 %Basophils Percent Auto0.40.2-2.0 % Immature Granulocytes Pct Auto0.40.0-0.5 %Neutrophils Absolute Auto8.31.4-6.5 10 3/uLLymphocytes Absolute Auto2.11.2-3.8 10 3/uLMonocytes Absolute Auto0.70.3-0.8 10 3/uLEosinophils Absolute Auto0.10.0-0.7 10 3/uLBasophils Absolute Auto0.00.0- 0.1 10 3/uLImmature Granulocytes Abs Auto0.040.00-0.03 10 3/uLPerforming Lab:see noteML - [facility] LBGLYCOHEMOGLOBIN A1C Reviewed date:02/06/2025 09:44:09 PM Interpretation: Performing Lab: Notes/Report: [facility] ,Glycohemoglobin A1C5.34.5-6.2 % ADA THERAPEUTIC TARGET < 7.0 ACTION SUGGESTED > 7.0 ADA RECOMMENDED LIMIT 4.0 - 6.0 Estimated Average Zvvizyp300Sapzfrhlpd Lab:see noteML - [facility] LB Type and Screen Reviewed date:02/06/2025 09:44:09 PM Interpretation: Performing Lab: Notes/Report: [facility] ,Blood TypeA PositiveAntibody ScreenNEGATIVEHIV Ab/p24 Ag with Reflex Reviewed date:02/07/2025 07:43:15 PM Interpretation: Performing Lab: Notes/Report: [facility] ,HIV Ab/p24 Ag ScreenNon ReactiveNon Reactive Performed at: [facility] Wood Carving Machine Operator: Jakob Jeffery PhD, Phone: [phone] HIV-1/HIV-2 antibodies and HIV-1 p24 antigen were NOT HIV Negative [address] [place], [place] [phone] detected. There is no laboratory evidence of HIV infection. Performing Lab:see note - [facility] LBUrine Culture, Routine Reviewed date:02/07/2025 07:43:15 PM Interpretation: Performing Lab: Notes/Report: [facility] ,Urine Culture, RoutineSee Below For ReportUrine Culture, RoutineUrine Culture, RoutineCulture shows less than 10,000 colony forming units of bacteria perUrine Culture, RoutineUrine Culture, Routinemilliliter of urine. This colony count is not generally consideredUrine Culture, RoutineUrine Culture, Routineto be clinically significant.Urine Culture, RoutineUrine Culture, RoutinePerformed at: - [facility] DublinUrine Culture, RoutineUrine Culture, Xpcecex[address] [place], [place] [id number] Culture, RoutineUrine Culture, RoutineLab Director: Jakob Jeffery PhD, Phone: [phone] Culture, RoutinePerforming Lab:see note SEE REPORT - Marine Fire Fighter Id information not found for OBX-specific web producer legend - [facility] LB CBC AUTO DIFF Reviewed date:05/23/2025 12:47:41 PM Interpretation: Performing Lab: Notes/Report: [facility] ,White Blood Count10.64.0-11.0 10 3/uLRed Blood Count4.034.20-5.40 10 6/uL Irsmggofmy50.112.0-16.0 g/lYDztulijkjt21.636.0-48.0 %Mean Corpuscular Ndvhrj90.8 81.0-99.0 fLMean Corpuscular Wpagtipwqd35.026.7-34.0 pgMean Corpuscular HGB Conc 33.129.9-35.2 g/dLRed Cell Distribution Width14.011.0-15.0 %Platelet Wzuut016 150-450 10 3/uLMean Platelet Volume9.99.5-13.5 fLNeutrophils Percent Auto70.7 43.0-75.0 %Lymphocytes Percent Auto19.220.5-60.0 %Monocytes Percent Auto6.41.7- 12.0 %Eosinophils Percent Auto1.90.9-7.0 %Basophils Percent Auto0.50.2-2.0 % Immature Granulocytes Pct Auto1.30.0-0.5 %Neutrophils Absolute Auto7.51.4-6.5 10 3/uLLymphocytes Absolute Auto2.01.2-3.8 10 3/uLMonocytes Absolute Auto0.70.3-0.8 10 3/uLEosinophils Absolute Auto0.20.0-0.7 10 3/uLBasophils Absolute Auto0.10.0- 0.1 10 3/uLImmature Granulocytes Abs Auto0.140.00-0.03 10 3/uLPerforming Lab:see note - [facility] LBGlucose 1 Hour Reviewed date:05/23/2025 12:47:41 PM Interpretation: Performing Lab: Notes/Report: [facility] ,Glucose 1 Hour93<130 mg/dLPerforming Lab:[facility] LB HBsAg Screen Reviewed date:02/07/2025 07:43:15 PM Interpretation: Performing Lab: Notes/Report: [facility] ,HBsAg ScreenNegativeNegative Wood Carving Machine Operator: Jakob Jeffery PhD, Phone: [phone] Performed at: [place] [address] Performing Lab:[facility] Labmineral [facility] LBHCV Antibody RFX to Quant PCR Reviewed date:02/07/2025 07:43:15 PM Interpretation: Performing Lab: Notes/Report: [facility] ,HCV AbNon ReactiveNon ReactiveInterpretation:Comment. infection. Not infected with HCV unless early or acute infection is individual), or other evidence exists to indicate HCV suspected (which may be delayed in an immunocompromised Performing Lab[facility] LBRapid Plasma Reagin, Quant Reviewed date:02/07/2025 07:43:15 PM Interpretation: Performing Lab: Notes/Report: [facility] ,Rapid Plasma Reagin, QuantNon ReactiveNonRea<1:1 titer Please Note: This test does not meet current guidelines for treated for syphilis infection. To screen for syphilis Treponema pallidum (Syphilis) Screening [place] (277844) or ([id number]). Wood Carving Machine Operator: Jakob Jeffery PhD, Phone: [phone] screening and diagnosis of syphilis. This test is infection, a reflex cascade that includes both RPR and a Rapid Plasma Reagin (RPR) Test With Reflex to Quantitative Performed at: [facility] intended for following treatment response in patients being treponema-specific assay should be utilized, such as RPR and Confirmatory Treponema pallidum Antibodies [address] [place] [phone] Performing Lab:[facility] LBRUBELLA AB IGG Reviewed date:02/07/2025 07:43:15 PM Interpretation: Performing Lab: Notes/Report: [facility] ,Rubella Antibodies, IgG2.74Immune >0.99 index Performed at: [facility] [address] [place] [phone] Equivocal 0.90 - 0.99 Wood Carving Machine Operator: Jakob Jeffery PhD, Phone: [phone] Non-immune <0.90 Immune >0.99 Performing Lab:[facility] LBDRUG SCREEN RAPID (URINE) Reviewed date:02/06/2025 09:44:09 PM Interpretation: Performing Lab: Notes/Report: [facility] ,Cannabinoid Screen UrineNEGATIVENEGATIVEPhencyclidine Screen UrineNEGATIVE NEGATIVECocaine Screen UrineNEGATIVENEGATIVEMethamphetamines Screen Urine NEGATIVENEGATIVEOpiate Screen UrineNEGATIVENEGATIVEAmphetamine Screen Urine NEGATIVENEGATIVEBenzodiazepines Screen UrineNEGATIVENEGATIVETricyclic Antidepressant UrineNEGATIVENEGATIVEMethadone Screen UrineNEGATIVENEGATIVE Barbiturates Screen UrineNEGATIVENEGATIVEOxycodone Screen UrineNEGATIVENEGATIVE Buprenorphine Screen UrineNEGATIVENEGATIVE FOLLOWS: HALLE (Cocaine): 150 ng/mL BAR (Barbiturates): 200 ng/mL OPI (Opiates): 100 ng/mL BZO (Benzodiazepines): 150 ng/mL mAMP (Methamphetamine): 500 ng/mL OXY (Oxycodone): 100 ng/mL THC (Cannabinoids): 50 ng/mL MTD (Methadone): 200 ng/mL AMP (Amphetamine): 500 ng/mL TCA (Trycyclic Antidepressants): 300 ng/mL PCP (Phencyclidine): 25 ng/mL DRUG CLASS TEST SYSTEM CUT-OFF CONCENTRATIONS ARE BUP (Buprenorphine): 10 ng/mL Performing Lab:see noteML - [facility] LBIGP,Aptima HPV,Age Gdln Reviewed date:09/05/2024 03:58:03 PM Interpretation: Performing Lab: Notes/Report: BRUSH-SPATULA CERVIX ENDOCERVIX [facility] ,Age Gdln ACOG TestingNote. Source.............Cervix;Endocervix Performed at: Carrie Mcgovern MD, Ladonna Christensenzoe OG Daria... -12 09 FLAG LEGEND: TESTS RESULT FLAG UNITS REF RANGE LAB 01 =G Denarachel Rebel L-Low Normal,H-High Normal,LL-Alert Low,HH-Alert High Clinician Provided Cytology Information [address] [place] [address] No. of containers..01 ThinPrep Vial <-Panic Low,>-Panic High,A-Abnormal,AA-Critical Abnormal IGP, rfx Aptima HPV ASCUNote. Test Methodology: Note 02 L-Low Normal,H-High Normal,LL-Alert Low,HH-Alert High result therefore, no HPV testing was performed. cells (endocervical component) are present. . 02 Note: Note 02 Wood Carving Machine Operator: Carrie Mcgovern MD, Phone: [phone] occur. uterine cervix. It is not a diagnostic procedure and FLAG LEGEND: [address] [place] [address] Performed at: Specimen adequacy: 02 This liquid based ThinPrep(R) pap test was screened with <-Panic Low,>-Panic High,A-Abnormal,AA-Critical Abnormal TESTS RESULT FLAG UNITS REF RANGE LAB Performed at: [address] [place], [place] [phone] Performed by: 09 16 [facility] DIAGNOSIS: 02 should not be used as the sole means of detecting cervical The Pap smear is a screening test designed to aid in the NEGATIVE FOR INTRAEPITHELIAL LESION OR MALIGNANCY. The HPV DNA reflex criteria were not met with this specimen Carrie Mcgovern MD, Satisfactory for evaluation. Endocervical and/or squamous metaplastic Performed at: =[facility] . 02 Wood Carving Machine Operator: Carrie Mcgovern MD, Phone: [phone] Luis Enrique Lee, [employer] (ASCP) the use of an image guided system. cancer. Both false-positive and false-negative reports do detection of premalignant and malignant conditions of the [address] [place], [place] [address], [place] [phone] Performing Lab:[facility] LBUS OB limited Reviewed date:02/25/2025 12:51:27 PM Interpretation: Performing Lab: Notes/Report: Source Facility: [facility]-[address] [place] [address] [place] [address] Ultrasound Report Signed Patient: VERÓNICA CANO MR#: [id number] : 1995 Acct:[id number] Age/Sex: 29 / F ADM Date: 02/25/25 Loc: US Attending Dr: Dionisio Miranda D.O. Ordering Physician: Dionisio Miranda D.O. Date of Service: 02/25/25 Procedure(s): US OB limited Accession Number(s): [id number] cc: Dionisio Miranda D.O.; Marcello Byrd M.D. [place] [address] Patient Name: VERÓNICA CANO MRN: [facility]:[id number] date: 1995 Sex: F Assigned Patient Location: US Current Patient Location: US Accession/Order Number: [id number] Exam Date: 02/25/2025 09:39 Report Date: 02/25/2025 09:47 At the request of: DIONISIO MIRANDA DO Procedure: US OB limited ULTRASOUND [...] Gaffney M.D. 02/25/2025 9:47 AM Dictation Location: [place] [address] Electronically authenticated by: [id number] Y Date: 02/25/2025 09:47 Dictated By: Linda Gaffney M.D. Signed By: 02/25/2550 DD/ TD/TT: Ux Visual Designer: Reason For Referral No Information Medications Medication SIG (Take, Route, Frequency, Duration) Notes Start Date End Date Status Magnesium 300 MG 1 capsule with a meal Orally On ce a day ActiveAmoxicillin-Pot Clavulanate 875-125 MG1 tablet Orally every 12 hrs; Duration: 10 days05/10/2025tivePrenatal (w/Iron & FA) 27-0.8 MG1 tablet Orally Once a dayActive Social History Tobacco Use: Social History Observation Description Date Details (start date - stop date) Never Smoker NA - NA Tobacco Control (Standard) Question Answer Notes Tobacco use: Nonsmoker AUDIT-C (Standard) Question Answer Notes Did you have a drink containing alcohol in the p ast year? No Soxrly6YlntqlflgujpmhIxhxawsd Vital Signs Blood pressure diastolic 62 mm Hg 05/10/2025 Dlbpbf19 in05/10/2025lood pressure firfhefo901 mm Hg05/10/20255474Lrnrvw403.2 lbs 05/10/2025BMI29.32 kg/m205/10/2025 Encounters Encounter Location Date Provider Diagnosis [address] [address] 05/10/2025 Ludwin Byrd Acute otitis media, unspecified otitis media type H66.90 and Otalgia, unspecified laterality H92.[address] [address] 01/27/2025 Ludwin Byrd Assessments Encounter Date Diagnosis (ICD Code) Assessment Notes Treatment Notes Treatment Clinical Notes Section Notes 05/10/2025 Acute otitis media, unspecified otitis media type (ICD-10 - H66.90) You have been prescribed antibiotics for otitis media. Antibiotics may bother your stomach, so try taking them with a light meal (unless instructed otherwise by your pharmacist). It is important to take them until they are finished. You can use tzmc-hnw-hxbrhai acetaminophen or ibuprofen if needed for pain. You have been prescribed antibiotics. You should be extra vigilant about hand washing or using hand manager transmission gel. You should follow up with your Primary Care Physician or return to clinic if not improving in the next 3-5 days.05/10/2025Otalgia, unspecified laterality (ICD-10 - H92.09) Plan Of Treatment No Information Insurance Providers Payer Name Payer Address Payer Phone Subscriber Number Group Number Insured Name Patient Relationship to Insured Coverage Start Date Coverage End Date [employer] [address] [address] [place] [address] [id number] Verónica Cano Self - patient is the insured Medical (General) History Surgical History Surgery Date(Month/Year) Tonsillectomy 2020 02/01/22 12/21/23
--- OUTSIDE RECORDS SUMMARY | 2025-08-05 20:53 | XMS_ITS | Encounter Summary ---
Author Organization [facility] Address [address] [facility] [place] [address] Care Team Providers Care Ruling Machine Set Up Operator Name Role Phone Marcello Byrd MD Primary Care Provider [phone] Encounter Details DateTypeDepartmentCare Team (Latest Contact Info)Jmsfnnwzufx42/16/2025Travel Social History Tobacco UseTypesPacks/DayYears UsedDateSmoking Tobacco: NeverSmokeless Tobacco: NeverAlcohol UseStandard Drinks/WeekCommentsYes1 (1 standard drink = 0.6 oz pure alcohol)Estimated Date of QhpbrhqcDuzqgtckXow99/19/2026ased on UltrasoundSex and Gender InformationValueDate RecordedSex Assigned at Rweohr0204/20/2023 5:24 PM EDTLegal XpnWtkfqs79/15/2023 11:47 PM EDTGender QgmmtoulMvhpfr05/06/2023 5:24 PM EDTSexual YchhokiihatXfkqmwhy04/06/2023 5:24 PM EDTdocumented as of this encounter Plan of Treatment DateTypeDepartmentCare Team (Latest Contact Info)Itcwzqtuodg77/29/2025 3:50 PM ESTRoutine [facility] [address] [phone] Yoli Tan PA [address] [place] [address] documented as of this encounter Visit Diagnoses Not on filedocumented in this encounter Care Teams Team MemberRelationshipSpecialtyStart DateEnd Date Marcello Byrd MD [address] [place] [address] PCP - GeneralFamily Wfkdrtew29/6/23documented as of this encounter
--- OUTSIDE RECORDS SUMMARY | 2025-08-05 20:53 | XMS_ITS | Encounter Summary ---
Author Organization [facility] Address [address] [facility] [place] [address] Care Team Providers Care Restaurant Hourly Manager Name Role Phone Marcello yBrd MD Primary Care Provider [phone] Encounter Details DateTypeDepartmentCare Team (Latest Contact Info)Vpltpqjndqu73/15/2025amboo flowsheet [facility] GAMBINO [address] [place] [address] Arcadio Miranda DO [address] [facility] [address] [place], [place] [address] Social History Tobacco UseTypesPacks/DayYears UsedDateSmoking Tobacco: NeverSmokeless Tobacco: NeverAlcohol UseStandard Drinks/WeekCommentsYes1 (1 standard drink = 0.6 oz pure alcohol)Estimated Date of AsjlpnkyNgppwpuwMcf86/19/2026ased on UltrasoundSex and Gender InformationValueDate RecordedSex Assigned at Vpplio1104/20/2023 5:24 PM EDTLegal MmeFlgrjc06/15/2023 11:47 PM EDTGender EmuhimrmXejfwb46/06/2023 5:24 PM EDTSexual YmnjzoifrxiArwbydxx50/06/2023 5:24 PM EDTdocumented as of this encounter Plan of Treatment DateTypeDepartmentCare Team (Latest Contact Info)Jkfbssfnzvn69/29/2025 3:50 PM ESTRoutine [facility] CANTUN [address] [place] [address] Yoli Tan PA [address] [facility] [place] [address] documented as of this encounter Visit Diagnoses Not on filedocumented in this encounter Care Teams Team MemberRelationshipSpecialtyStart DateEnd Date Marcello Byrd MD [address] [facility] [place] [phone] PCP - GeneralFamily Ysfkyoxu34/6/23documented as of this encounter
--- OUTSIDE RECORDS SUMMARY | 2025-08-05 20:53 | XMS_ITS | Encounter Summary ---
Author Organization [facility] Address [address] [facility] [place] [address] Care Team Providers Care Medical Oncology Physician Name Role Phone Marcello Byrd MD Primary Care Provider [phone] Encounter Details DateTypeDepartmentCare Team (Latest Contact Info)Qmlljfcbyrn93/22/2025amboo flowsheet [facility] GAMBINO [address] [place] [address] Yoli Tan PA [address] [address] [place], [place] [address] Social History Tobacco UseTypesPacks/DayYears UsedDateSmoking Tobacco: NeverSmokeless Tobacco: NeverAlcohol UseStandard Drinks/WeekCommentsYes1 (1 standard drink = 0.6 oz pure alcohol)Estimated Date of SufnmsqxIzppoxypUhe87/19/2026ased on UltrasoundSex and Gender InformationValueDate RecordedSex Assigned at Ooykym6404/20/2023 5:24 PM EDTLegal QdqCacdzf55/15/2023 11:47 PM EDTGender YilbuhqyZwxgve35/06/2023 5:24 PM EDTSexual VcqqfisuylmGxpyaxqy45/06/2023 5:24 PM EDTdocumented as of this encounter Plan of Treatment DateTypeDepartmentCare Team (Latest Contact Info)Abgrbahvtrh17/29/2025 3:50 PM ESTRoutine [facility] GAMBINO [address] [place] [address] Yoli Tan PA [address] [place] [address] documented as of this encounter Visit Diagnoses Not on filedocumented in this encounter Care Teams Team MemberRelationshipSpecialtyStart DateEnd Date Marcello Byrd MD [address] [facility] [place] [address] PCP - GeneralFamily Htroznxz27/6/23documented as of this encounter
== END 2025-08-05 20:51 | disposition home or self-care (01) ==
LOC: LAB 20:50
PROVIDERS: PCP Family Medicine; Visit Provider Physician Assistant
DX: Z34.93 Encounter for supervision of normal pregnancy, unspecified, third trimester (principal)
CPT/HCPCS: 87081